=== PATIENT | male | born 1995 | race Caucasian/White ===

== ENCOUNTER 2021-02-12 10:57 | Emergency (ER) | payer OTHER, SELFPAY ==
--- NOTE | ~2021-02-12 | XR_ITS ---
EXAMINATION: XR FOOT, RIGHT CLINICAL INFORMATION: Stepped on a nail COMPARISON: Previous x-ray September 2019 TECHNIQUE: AP, lateral, and oblique views of the right foot. FINDINGS: Bone alignment is normal. No fracture or dislocation is seen. Joint spaces are normal. No radiopaque soft tissue foreign body is seen. XR/XR foot RT min 3V IMPRESSION: No fracture or foreign body seen.
[2021-02-12 11:01] VITALS: BP 131/81; PULSE 112; RESP 18; TEMP 37.3; O2SAT 99; BMI 34.0
--- NOTE | 2021-02-12 11:50 | ED.LOWEXIN ---
HPI - Extremity Injury (Lower) General Chief Complaint: Extremity Injury, Lower Stated Complaint: stepped on leon nail Time Seen by Provider: 02/12/21 11:39 Source: patient Mode of arrival: ambulatory Limitations: no limitations History of Present Illness HPI Narrative: 25 y/o male presenting with right foot pain and bilateral leg pain. He reports stepping on a leon nail on the steps of his mother's porch on Father's day. He pulled it out and thought nothing of it. He reports yesterday he was riding his bike and he noticed his lower legs were painful. He described it as bone pain of both lower legs. No muscle cramping or spasming. No weakness, numbness or tingling. No jaw pain, lockjaw, neck stiffness, abdominal pain, or difficultly swallowing. Minimal redness of the plantar aspect of the right foot with mild tenderness. No fever or chills. MD complaint: foot injury Onset (ago): week(s) Injury: Right: foot Type of Injury: puncture wound Place: home Severity: mild Severity scale (1-10): 4 Relieving factors: nothing Exacerbating factors: weight bearing, movement and palpation Context: stepped on nail Associated symptoms: ambulatory Other symptoms: other (leg pain) Related Data Previous Rx's Medication Instructions Recorded ibuprofen 800 mg PO Q8H PRN #14 tab 02/12/21 levofloxacin 500 mg PO DAILY 3 Days #3 tab 02/12/21 metronidazole 500 mg PO Q8H 10 Days #30 tab 02/12/21 Allergies Allergy/AdvReac Type Severity Reaction Status Date / Time Penicillins [PENICILLINS] Allergy Intermediate RASH Verified 02/12/21 11:00 Review of Systems Review of Systems: Constitutional: No Fever, No Chills ENT/Mouth: No sore throat, No Rhinorrhea, No Swallowing Difficulty Eyes: No Eye Pain, No Swelling, No Redness Cardiovascular: No Chest Pain, No SOB, No Orthopnea, No Edema Respiratory: No Cough, No Sputum, No Wheezing, No dyspnea Gastrointestinal: No Nausea, No Vomiting, No Diarrhea, No abdominal Pain Musculoskeletal: + joint pain, No Myalgias Skin: No Skin Lesions, No rash Neuro: No Weakness, No Numbness, No Dizziness, No Headache Psych: No Anxiety/Panic, No Depression Heme/Lymph: No Bruising, No Lymphadenopathy PMFSH Past Medical History Attestation statement: The following information was validated with the patient. Medical History (Updated 02/12/21 @ 12:43 by JENNIFER Garrido) No active medical problems Social History Social History Advance Directives: Yes Advance Directives Information Provided: Yes Advance Directives on File: No Physical Exam Vital Signs: Vital Signs: Last Vital Signs Temp 99.1 F 02/12/21 11:01 Pulse 112 H 02/12/21 11:01 Resp 18 02/12/21 11:01 BP 131/81 02/12/21 11:01 Pulse Ox 99 02/12/21 11:01 Body Mass Index 34.0 Appearance: Alert. Oriented X3. No acute distress. HEENT: normal inspection CVS: Normal heart rate and rhythm. Pulses normal. Respiratory: No respiratory distress. Skin: Skin warm and dry. Normal skin color. Normal skin turgor. No rashes. Extremities: plantar aspect of right foot with punctate lesion on medial aspect of ball of foot, no surrounding erythema or warmth, unable to express drainage, no fluctance. No calf tenderness. bilateral ankles with mild bony tenderness without erythema, edema or skin changes Neuro: Oriented X 3. No motor deficit. No sensory deficit. Steady gait. Course Course Course Narrative: 25 y/o male presenting with leg pain and puncture wound to right foot. Doubt the 2 complaints are related. Doubt generalized tetanus given his lack of systemic symptoms and benign clinical examination. XR shows no FB or bone puncture. Wound does not appear to be infected. Can empirically treat with PO Flagyl given his risk factor of puncture wound. Tdap administered here. He was counseled extensively on warning signs and symptoms of true tetanus. He will return or call 911 if he develops any of these. Stable for d/c home. Case was d/w Dr. Herron. Discharge Plan Discharge Clinical Impression: Puncture wound of foot Qualifiers: Encounter type: initial encounter Laterality: right Qualified Code(s): S91.331A - Puncture wound without foreign body, right foot, initial encounter Patient Disposition: Home, Self-Care Instructions: Puncture Wound in the Foot (ED) Additional Instructions: Your x-ray was normal. You are being started on a course of antibiotic to prevent and treat possible infection Use warm soaks was Epsom salts as needed for pain. Take Motrin and/or Tylenol as needed for pain. If you develop any concerning symptoms of tetanus such as lockjaw, severe muscle spasms, stiff neck, rigid abdomen, trouble swallowing call 911 or come back to the ER for further evaluation. Follow up with your doctor next week Prescriptions: New levofloxacin 500 mg tablet 500 mg PO DAILY 3 Days Qty: 3 RF: 0 ibuprofen 800 mg tablet 800 mg PO Q8H PRN (Reason: pain) Qty: 14 RF: 0 metronidazole 500 mg tablet 500 mg PO Q8H 10 Days Qty: 30 RF: 0 Stand Alone Forms: Work/School Release
[2021-02-12] MEDS: Diphth,Pertus(ACell),Tet Adult 0.5 ML SYRINGE IM (12:22)
[2021-02-12] MEDS: Ibuprofen 800 MG TABLET PO (12:38)
== END 2021-02-12 13:15 | disposition home or self-care (01) ==
PROVIDERS: Emergency Provider Emergency Medicine
DX: S91.331A Puncture wound without foreign body, right foot, initial encounter (principal); W45.0XXA Nail entering through skin, initial encounter; Y93.9 Activity, unspecified; Y92.008 Other place in unspecified non-institutional (private) residence as the place of occurrence of the external cause; Y99.9 Unspecified external cause status
CPT/HCPCS: 73630; 90471; 90715; 96372; 99284

== ENCOUNTER 2021-10-07 19:10 | Emergency (ER) | payer OTHER, SELFPAY ==
--- NOTE | ~2021-10-07 | XR_ITS ---
EXAMINATION: XR CHEST CLINICAL INFORMATION: Cough. COMPARISON: Chest radiograph dated from 06/20/2019. TECHNIQUE: PA view of the chest was obtained. FINDINGS: Normal appearance of the cardiomediastinal silhouette. No focal airspace opacities, pleural effusions or pneumothorax. No acute osseous abnormalities. Upper abdomen is within normal limits. XR/XR chest 1V IMPRESSION: No acute cardiopulmonary findings.
[2021-10-07 19:28] VITALS: BP 125/71; PULSE 106; RESP 15; TEMP 36.1; O2SAT 96; BMI 28.6
[2021-10-07 19:37] LABS: MANUAL DIFF FLAG NO
[2021-10-07 19:42] LABS: Basophils Percent Auto 0.5 % (0-2); Eosinophils Absolute Auto 0.5 X10*3/uL (0.0-0.4); Eosinophils Percent Auto 5.6 % (0-4); Hematocrit 48.6 % (42.0-52.0); Hemoglobin 16.8 g/dl (14.0-18.0); Imm Gran Abs Auto 0.02 X10*3/uL (0.00-0.03); Imm Gran Pct Auto 0.2 % (0.0-0.4); Lymphocytes Absolute Auto 1.3 X10*3/uL (1.2-4.9); Lymphocytes Percent Auto 14.9 % (20-40); Mean Corpuscular HGB Conc 34.6 g/dl (31.0-36.0); Mean Corpuscular Hemoglobin 28.2 pg (27.0-33.0); Mean Corpuscular Volume 81.5 fL (80.0-98.0); Mean Platelet Volume 10.6 fL (9.4-12.4); Monocytes Absolute Auto 0.9 X10*3/uL (0.1-1.2); Monocytes Percent Auto 10.4 % (2-11); Neutrophils Percent Auto 68.4 % (45-73); Platelet Count 309 X10*3/uL (160-400); Red Blood Count 5.96 X10*6/uL (4.60-5.80); Red Cell Distribution Width 13.3 % (11.0-16.0); White Blood Count 8.7 X10*3/uL (4.8-10.8)
[2021-10-07 19:55] LABS: Anion Gap 14 (12-20); Blood Urea Nitrogen 9 mg/dL (9-16); Carbon Dioxide 27 mmol/L (22-29); Chloride 101 mmol/L (96-108); Estimated Glomerular Filt Rate > 60; Glucose Random 119 mg/dL (60-115); Potassium 4.1 mmol/L (3.3-5.1); Sodium 138 mmol/L (135-145)
[2021-10-07 19:55] LABS: COVID-19 Test Negative (Negative); IDNOW Serial# 55D5AD1C
--- NOTE | 2021-10-07 21:51 | ED_ITS ---
HPI - Asthma General Chief Complaint: Asthma Stated Complaint: asthma Time Seen by Provider: 10/07/21 21:51 Source: patient Mode of arrival: ambulatory Limitations: no limitations History of Present Illness HPI Narrative: This is a 26-year-old male past medical history significant for asthma presenting to the emergency department with cough productive of dark white/brownish sputum. And congestion x3 months. Patient tells me that this is not improved and he has not been evaluated by a medical professional over the past 3 months. He tells me he has been using his sister's inhaler with relief. He denies chest pain or shortness of breath. However he does tell me that the cough gets worse at night, he has difficulties sleeping due to the cough. He denies fevers but he does tell me that he has intermittent chills. Denies recent sick contacts. He denies headache, weakness, abdominal pain, nausea, vomiting, diarrhea. His asthma is well controlled has never required intubation. MD complaint: asthma attack Onset (ago): month(s) (3) Severity: mild and moderate Context: none known Associated symptoms: productive cough Asthma History: childhood onset Related Data Previous Rx's Medication Instructions Recorded ibuprofen 800 mg tablet 800 mg PO Q8H PRN #14 tab 02/12/21 levofloxacin 500 mg tablet 500 mg PO DAILY 3 Days #3 tab 02/12/21 metronidazole 500 mg tablet 500 mg PO Q8H 10 Days #30 tab 02/12/21 albuterol sulfate 90 mcg/actuation 2 inh INHALATION Q4-6H PRN #1 ea 10/07/21 breath activated powder inhaler azithromycin 250 mg tablet See Rx Instructions .ROUTE 10/07/21 .COMPLEX #6 tab benzonatate 100 mg capsule 100 mg PO BID PRN #20 cap 10/07/21 Allergies Allergy/AdvReac Type Severity Reaction Status Date / Time Penicillins [PENICILLINS] Allergy Intermediate RASH Verified 02/12/21 11:00 Review of Systems Review of Systems: Constitutional : No Weight loss, No Fever, No Chills, No Fatigue, No Malaise ENT/Mouth : No sore throat, + Rhinorrhea Eyes: No Eye Pain, No Swelling, No Redness Cardiovascular : No Chest Pain, No SOB, No Dyspnea on Exertion, No Orthopnea, No Edema, No Palpitations Respiratory : + Cough, + Sputum, No Wheezing Gastrointestinal : No Nausea, No Vomiting, No Diarrhea, No Constipation, No abdominal Pain, No Hematochezia, No Melena Genitourinary : No Dysuria, No Urinary Frequency, No Hematuria, Musculoskeletal : No joint pain, No Myalgias, No Joint Swelling Skin : No Skin Lesions, No rash Neuro : No Weakness, No Numbness, No Dizziness, No Headache Psych : No Anxiety/Panic, No Depression All other systems reviewed and are negative Yes all other systems are reviewed and are negative [facility] Past Medical History Attestation statement: The following information was validated with the patient. Source: old records reviewed and nursing notes reviewed Medical History No active medical problems Physical Exam Vital Signs: Vital Signs: Last Vital Signs Temp 97 F 10/07/21 19:28 Pulse 75 10/07/21 22:38 Resp 18 10/07/21 22:38 BP 125/71 10/07/21 19:28 Pulse Ox 96 10/07/21 19:28 BMI result Body Mass Index 28.6 VSS Appearance: Alert.? Oriented X3.? No acute distress.? Head: Normocephalic, atraumatic, no step-offs or deformities Eyes: Pupils equal, round and reactive to light.? ENT: Pharynx normal.?Negative forward bending test for sinusitis. No lymphadenopathy Neck: Normal inspection.? Neck supple.? CVS: Normal heart rate and rhythm.? Pulses normal.? Respiratory: No respiratory distress.? + wheezing throughout. Abdomen: Soft and nontender.? Skin: Skin warm and dry.? Normal skin color.? Normal skin turgor.? Extremities: No lower extremity edema.? No calf ttp, neagtive shelley b/l. 5/5 strength to bilateral upper and lower extremities Neuro: Oriented X 3.? No motor deficit.? No sensory deficit. Course Reevaluation(s) Reevaluation #1: CBC within normal limits. No acute electrolyte abnormalities. COVID negative. Chest x-ray within normal limits. At this time patient's symptoms likely secondary to bronchitis. Unlikely that this is a PE, patient's vital signs are stable, saturating well on room air. Will give duoneb Time: 22:12 Reevaluation #2: Patient reports improvement with DuoNeb. At this time will treat for bacterial bronchitis is patient has been having symptoms for a prolonged period of time. Will discharge patient home on a Z-Gustavo, inhaler and give patient Tessalon Perles for cough. Advised patient to return with new or worsening symptoms. Comfortable discharge home. Time: 22:55 MDM - Asthma MDM Narrative Medical decision making narrative: 2154 26 yo m pmhx childhood asthma presents with URI and asthma exacerbation X3 months, worse at night. PE significant for wheezing throughout. RRR. Neuro nonfocal negative shelley sign b/l. Unlikley PE or PNA likley asthma and bronchitis. Plan- labs, xray, duoneb Medical Records Attestation: I reviewed the patient's medical records. Lab Data Attestation: I reviewed the patient's lab results. Result diagrams: 10/07/21 19:33 10/07/21 19:33 Labs: Lab Results 10/07/21 10/07/21 10/07/21 Range/Units 19:29 19:33 19:33 WBC 8.7 (4.8-10.8) X10*3/uL RBC 5.96 H (4.60-5.80) X10*6/uL Hgb 16.8 (14.0-18.0) g/dl Hct 48.6 (42.0-52.0) % MCV 81.5 (80.0-98.0) fL MCH 28.2 (27.0-33.0) pg MCHC 34.6 (31.0-36.0) g/dl RDW 13.3 (11.0-16.0) % Plt Count 309 (160-400) X10*3/uL MPV 10.6 (9.4-12.4) fL Immature Gran % (Auto) 0.2 (0.0-0.4) % Neut % (Auto) 68.4 (45-73) % Lymph % (Auto) 14.9 L (20-40) % [place] % (Auto) 10.4 (2-11) % Eos % (Auto) 5.6 H (0-4) % Baso % (Auto) 0.5 (0-2) % Lymph # (Auto) 1.3 (1.2-4.9) X10*3/uL [place] # (Auto) 0.9 (0.1-1.2) X10*3/uL Eos # (Auto) 0.5 H (0.0-0.4) X10*3/uL Baso # (Auto) 0.0 (0.0-0.2) X10*3/uL Abs Immat Gran (auto) 0.02 (0.00-0.03) X10*3/uL Absolute Neuts (auto) 6.0 (2.0-8.3) x10*3/uL Absolute Nucleated RBC 0.000 (0.0-0.012) X10*3/uL Nucleated RBC % (auto) 0.0 (0.0-0.2) /100WBC Sodium 138 (135-145) mmol/L Potassium 4.1 (3.3-5.1) mmol/L Chloride 101 (96-108) mmol/L Carbon Dioxide 27 (22-29) mmol/L Anion Gap 14 (12-20) BUN 9 (9-16) mg/dL Creatinine 0.85 (0.5-1.4) mg/dL Estim Creat Clear Calc 142.0 Estimated GFR > 60 Random Glucose 119 H (60-115) mg/dL Calcium 10.0 (8.4-10.2) mg/dL B-Natriuretic Peptide (<100) pg/mL COVID-19 (REED) Negative (Negative) COVID-19 Clin Com See Note 10/07/21 Range/Units 19:33 WBC (4.8-10.8) X10*3/uL RBC (4.60-5.80) X10*6/uL Hgb (14.0-18.0) g/dl Hct (42.0-52.0) % MCV (80.0-98.0) fL MCH (27.0-33.0) pg MCHC (31.0-36.0) g/dl RDW (11.0-16.0) % Plt Count (160-400) X10*3/uL MPV (9.4-12.4) fL Immature Gran % (Auto) (0.0-0.4) % Neut % (Auto) (45-73) % Lymph % (Auto) (20-40) % [place] % (Auto) (2-11) % Eos % (Auto) (0-4) % Baso % (Auto) (0-2) % Lymph # (Auto) (1.2-4.9) X10*3/uL [place] # (Auto) (0.1-1.2) X10*3/uL Eos # (Auto) (0.0-0.4) X10*3/uL Baso # (Auto) (0.0-0.2) X10*3/uL Abs Immat Gran (auto) (0.00-0.03) X10*3/uL Absolute Neuts (auto) (2.0-8.3) x10*3/uL Absolute Nucleated RBC (0.0-0.012) X10*3/uL Nucleated RBC % (auto) (0.0-0.2) /100WBC Sodium (135-145) mmol/L Potassium (3.3-5.1) mmol/L Chloride (96-108) mmol/L Carbon Dioxide (22-29) mmol/L Anion Gap (12-20) BUN (9-16) mg/dL Creatinine (0.5-1.4) mg/dL Estim Creat Clear Calc Estimated GFR Random Glucose (60-115) mg/dL Calcium (8.4-10.2) mg/dL B-Natriuretic Peptide 10 (<100) pg/mL COVID-19 (REED) (Negative) COVID-19 Clin Com Critical Care Time Critical Care Time Critical Care Time: No Discharge Plan Discharge Clinical Impression: Bronchitis Patient Disposition: Home, Self-Care Instructions: Acute Bronchitis (ED) Additional Instructions: Take your medications as prescribed. If you were prescribed antibiotics today, it is important that you take your medication to their entirety, do not skip any doses, do not finish them early. Follow-up with your primary care provider this week. Return to the emergency department with new or worsening symptoms. Such as chest pain, shortness of breath, nausea, vomiting, fevers, chills, abdominal pain, headache, dizziness, vision changes. In case of emergency call 911 Prescriptions: New albuterol sulfate 90 mcg/actuation aerosol powdr breath activated 2 inh inhalation Q4-6H PRN (Reason: shortness of breath) Qty: 1 0RF azithromycin 250 mg tablet See Rx Instructions .ROUTE .COMPLEX Qty: 6 0RF Rx Instructions: For 250 mg dose pack: take 500 mg today (day 1), then 250 mg for 4 days (days 2-5) benzonatate 100 mg capsule 100 mg PO BID PRN (Reason: cough) Qty: 20 0RF No Action levofloxacin 500 mg tablet 500 mg PO DAILY 3 Days Qty: 3 0RF Rx Instructions: supervising MD Roxana Herron ibuprofen 800 mg tablet 800 mg PO Q8H PRN (Reason: pain) Qty: 14 0RF Rx Instructions: supervising MD Roxana Herron metronidazole 500 mg tablet 500 mg PO Q8H 10 Days Qty: 30 0RF Rx Instructions: supervising MD Roxana Herron Referrals: Physician,Unknown J [Primary Care Provider] - 2 days Stand Alone Forms: Work/School Release
[2021-10-07 22:25] LABS: B Type Natriuretic Peptide 10 pg/mL (<100)
[2021-10-07 22:38] VITALS: PULSE 75; RESP 18; O2SAT 97
[2021-10-07] MEDS: Albuterol/Iprat 2.5/0.5MG 3 ML AMPUL.NEB INHALE (22:38)
== END 2021-10-07 23:46 | disposition home or self-care (01) ==
LOC: HO.ED 23:04
PROVIDERS: Physician Assistant; Emergency Provider Emergency Medicine
DX: J20.9 Acute bronchitis, unspecified (principal); R06.02 Shortness of breath; R05.2 Subacute cough; Z20.822 Contact with and (suspected) exposure to COVID-19; Z79.899 Other long term (current) drug therapy
CPT/HCPCS: 36415; 71045; 80048; 83880; 85025; 87635; 94640; 99283; 99284

== ENCOUNTER 2021-10-14 20:18 | Emergency (ER) | payer OTHER, SELFPAY ==
[2021-10-14 21:30] VITALS: BP 129/78; PULSE 79; RESP 22; TEMP 36.6; O2SAT 95; BMI 28.0
--- NOTE | 2021-10-14 23:35 | ED.ASTHMA ---
HPI - Asthma General Chief Complaint: Asthma Stated Complaint: Asthma Time Seen by Provider: 10/14/21 23:35 Source: patient Mode of arrival: ambulatory Limitations: no limitations History of Present Illness HPI Narrative: Patient history of asthma was seen here on 10/07 unable to get the prescription filled as sent to the wrong pharmacy complaining of wheezing and shortness of breath since discharge no fever no chills no chest pain Related Data Previous Rx's Medication Instructions Recorded ibuprofen 800 mg tablet 800 mg PO Q8H PRN #14 tab 02/12/21 levofloxacin 500 mg tablet 500 mg PO DAILY 3 Days #3 tab 02/12/21 metronidazole 500 mg tablet 500 mg PO Q8H 10 Days #30 tab 02/12/21 albuterol sulfate 90 mcg/actuation 2 inh INHALATION Q4-6H PRN #1 ea 10/07/21 breath activated powder inhaler azithromycin 250 mg tablet See Rx Instructions .ROUTE 10/07/21 .COMPLEX #6 tab benzonatate 100 mg capsule 100 mg PO BID PRN #20 cap 10/07/21 albuterol sulfate 2.5 mg (3 mL) INHALATION Q4-6H PRN 10/15/21 #90 ml albuterol sulfate 90 mcg/actuation 2 puff INHALATION Q4-6H PRN #8.5 g 10/15/21 aerosol inhaler (ProAir HFA) prednisone 20 mg tablet 40 mg PO DAILY #10 tab 10/15/21 Allergies Allergy/AdvReac Type Severity Reaction Status Date / Time Penicillins [PENICILLINS] Allergy Intermediate RASH Verified 02/12/21 11:00 Review of Systems Review of Systems: Yes all other systems are reviewed and are negative PMFSH Past Medical History Medical History No active medical problems Social History Social History Advance Directives: No Physical Exam Vital Signs: Vital Signs: Last Vital Signs Temp 97.7 F 10/15/21 00:43 Pulse 96 10/15/21 01:00 Resp 18 10/15/21 01:00 BP 140/82 H 10/15/21 00:43 Pulse Ox 94 10/15/21 00:43 BMI result Body Mass Index 28.0 Appearance: Alert. Oriented X3. Moderate respiratory distress. ENT: Pharynx normal. Oral Mucosa moist Neck: Normal inspection. Neck supple. CVS: Normal heart rate and rhythm. Pulses normal. Respiratory: Moderate respiratory distress. Bilateral wheezing Abdomen: Soft and nontender. Bowel sounds are present, no mass palpable, no CVA tenderness Skin: Skin warm and dry. Normal skin color. Normal skin turgor. Extremities: No lower extremity edema. No calf tenderness Neuro: Oriented X 3. MDM - Asthma MDM Narrative Medical decision making narrative: Patient feeling better after continues treatment wheezing still there was saturating 97% at room air will discharge patient home on prednisone nebulizer at home with inhaler Discharge Plan Discharge Clinical Impression: Asthma with acute exacerbation Patient Disposition: Home, Self-Care Instructions: Asthma (ED) Additional Instructions: Use inhaler/neb tt as adv Prednisone as prescribed Follow with PCP if not better Prescriptions: New prednisone 20 mg tablet 40 mg PO DAILY Qty: 10 0RF albuterol sulfate [ProAir HFA] 90 mcg/actuation HFA aerosol inhaler 2 puff inhalation Q4-6H PRN (Reason: Wheezing) Qty: 8.5 0RF albuterol sulfate 2.5 mg /3 mL (0.083 %) solution for nebulization 2.5 mg inhalation Q4-6H PRN (Reason: shortness of breath or wheezing) Qty: 90 0RF No Action levofloxacin 500 mg tablet 500 mg PO DAILY 3 Days Qty: 3 0RF Rx Instructions: supervising MD Roxana Herron ibuprofen 800 mg tablet 800 mg PO Q8H PRN (Reason: pain) Qty: 14 0RF Rx Instructions: supervising MD Roxana Herron metronidazole 500 mg tablet 500 mg PO Q8H 10 Days Qty: 30 0RF Rx Instructions: supervising MD Roxana Herron albuterol sulfate 90 mcg/actuation aerosol powdr breath activated 2 inh inhalation Q4-6H PRN (Reason: shortness of breath) Qty: 1 0RF azithromycin 250 mg tablet See Rx Instructions .ROUTE .COMPLEX Qty: 6 0RF Rx Instructions: For 250 mg dose pack: take 500 mg today (day 1), then 250 mg for 4 days (days 2-5) benzonatate 100 mg capsule 100 mg PO BID PRN (Reason: cough) Qty: 20 0RF
[2021-10-14] MEDS: dexAMETHasone 2 MG TABLET 10 MG PO (23:46)
[2021-10-14] MEDS: Albuterol Sulfate (0.083%) 2.5 MG/3 ML VIAL.NEB 7.5 MG INHALE (23:57)
[2021-10-14] MEDS: Albuterol/Iprat 2.5/0.5MG 3 ML AMPUL.NEB INHALE (23:57)
[2021-10-15 00:04] VITALS: PULSE 79; RESP 22; O2SAT 95
[2021-10-15 00:43] VITALS: BP 140/82; PULSE 79; RESP 18; TEMP 36.5; O2SAT 94
[2021-10-15] MEDS: Albuterol Sulfate (0.083%) 2.5 MG/3 ML VIAL.NEB 7.5 MG INHALE (00:46)
[2021-10-15] MEDS: Albuterol Sulfate 90 MCG 8 GM INHALER 4 PUFF INHALE (00:47)
[2021-10-15 01:00] VITALS: PULSE 96; RESP 18; O2SAT 98
== END 2021-10-15 06:46 | disposition home or self-care (01) ==
PROVIDERS: Emergency Provider Internal Medicine; PCP Nurse Practitioner Family
DX: J45.901 Unspecified asthma with (acute) exacerbation (principal)
CPT/HCPCS: 94640; 94644; 94645; 99283; 99285; J8540

== ENCOUNTER 2022-01-27 22:09 | Emergency (ER) | payer OTHER, SELFPAY ==
--- NOTE | ~2022-01-27 | XR_ITS ---
EXAMINATION: XR CHEST CLINICAL INFORMATION: Low-dose COMPARISON: None TECHNIQUE: Frontal view of the chest was obtained. FINDINGS: The lungs are well-expanded without any acute consolidation. There is increased bilateral parahilar interstitial/vascular markings. Heart size is normal. No gross bony abnormality. XR/XR chest 1V IMPRESSION: Slight increase bilateral parahilar interstitial/vascular markings question mild fluid overload./Edema No acute consolidation or pleural effusion.
--- NOTE | 2022-01-27 22:19 | ED.PSYCH ---
HPI - Psych General Chief Complaint: ETOH/Substance Use Stated Complaint: substance abuse Time Seen by Provider: 01/27/22 22:17 Source: EMS Mode of arrival: EMS Limitations: altered mental status (intoxication) History of Present Illness HPI Narrative: 26 yo male with hx of substance abuse and asthma here with c/o 911 call by bystanders patient found wandering around screaming admitted to PCP abuse but EMS notes low O2 sats and sleepy, no narcan given, decreased RR. complaint: substance abuse Onset (ago): unknown Duration: constant History of same: Yes Relieving factors: other (narcan on arrival in ED) Exacerbating factors: drug use Context: recent drug abuse Associated psychiatric symptoms: other (cough) Associated symptoms: denies other symptoms Treatments prior to arrival: other (put on oxygen for O2 sats in 80s, low RR no narcan was given en route) Related Data Previous Rx's Medication Instructions Recorded ibuprofen 800 mg tablet 800 mg PO Q8H PRN pain #14 tabs 02/12/21 levofloxacin 500 mg tablet 500 mg PO DAILY 3 days #3 tabs 02/12/21 metronidazole 500 mg tablet 500 mg PO Q8H 10 days #30 tabs 02/12/21 albuterol sulfate 90 mcg/actuation 2 inh inhalation Q4-6H PRN 10/07/21 breath activated powder inhaler shortness of breath #1 ea azithromycin 250 mg tablet See Rx Instructions PO .COMPLEX #6 10/07/21 tabs benzonatate 100 mg capsule 100 mg PO BID PRN cough #20 caps 10/07/21 albuterol sulfate 2.5 mg (3 mL) inhalation Q4-6H PRN 10/15/21 shortness of breath or wheezing #90 mL albuterol sulfate 90 mcg/actuation 2 puff inhalation Q4-6H PRN 10/15/21 aerosol inhaler (ProAir HFA) Wheezing #8.5 grams prednisone 20 mg tablet 40 mg PO DAILY #10 tabs 10/15/21 Allergies Allergy/AdvReac Type Severity Reaction Status Date / Time Penicillins [PENICILLINS] Allergy Intermediate RASH Verified 02/12/21 11:00 Review of Systems Review of Systems: ROS unable to be obtained due to altered mental status PMFSH Past Medical History Attestation statement: The following information was validated with the patient. Medical History (Updated 01/27/22 @ 23:10 by Roxana Herron DO) Asthma Social History Social History (Updated 01/27/22 @ 23:01 by Roxana Herron DO) Patient Tobacco Use Status: Current someday Tobacco user Substance Use Type: Marijuana Advance Directives: No Advance Directives Information Provided: Yes Physical Exam Vital Signs: Vital Signs: Last Vital Signs Temp 98.1 F 01/27/22 22:21 Pulse 94 01/27/22 22:32 Resp 18 01/27/22 22:32 BP 131/68 01/27/22 22:21 Pulse Ox 100 01/27/22 22:58 O2 Del Method 01/27/22 22:58 Oxygen Flow Rate 2 01/27/22 22:21 BMI result Body Mass Index 30.4 Appearance: Somnolent, confused mumbles words mild acute distress. Eyes: Pupils constricted, eyes red and injected ENT: Pharynx normal. Neck: Normal inspection. Neck supple. CVS: Normal heart rate and rhythm. Pulses normal. Respiratory: Mild respiratory distress - decreased RR. Breath sounds coarse and very diminished Abdomen: Soft and nontender. Skin: Skin warm and dry. Normal skin color. Normal skin turgor. Extremities: No lower extremity edema. No calf ttp Neuro: cannot participate in full neuro exam. No motor deficit. No sensory deficit. Course Course Course Narrative: much more awake and calm after narcan 4mg IN - he states he feels better pupils now 3mm states he only used THC tonight 100% on RA after neb treatment to be handed albuterol INH in ED, CXR ?edema he has no pedal edema or JVD and no prior hx of CHF much improved, signed out pending CARE team consult declined CARE team services will observe until 1230 after narcan if he remains stable he can be DC home Dr. Garibay to observe MDM - Psych MDM Narrative Medical decision making narrative: 26 yo male brought in by EMS as substance abuse he is sedated with constricted pupils and hypoxia - IN narcan given. He has coarse lung sounds on exam with hx of asthma - neb ordered along with CXR for pneumonia. Will obtain drug screen and offer CARE team consult. Lab Data Labs: Lab Results 01/27/22 Range/Units 22:41 COVID-19 (REED) Negative (Negative) COVID-19 Clin Com See Note Discharge Plan Discharge Clinical Impression: Acute bronchospasm, Substance abuse Patient Disposition: Still a Patient Instructions: Bronchospasm (ED) Additional Instructions: return to ED for any worsening symptoms or concerns you can take the albuterol inhaler 2 to 4 puffs every 4 hours as needed for wheezing Prescriptions: No Action levofloxacin 500 mg tablet 500 mg PO DAILY 3 Days Qty: 3 0RF Rx Instructions: supervising MD Roxana Herron ibuprofen 800 mg tablet 800 mg PO Q8H PRN (Reason: pain) Qty: 14 0RF Rx Instructions: supervising MD Roxana Herron metronidazole 500 mg tablet 500 mg PO Q8H 10 Days Qty: 30 0RF Rx Instructions: supervising MD Roxana Herron prednisone 20 mg tablet 40 mg PO DAILY Qty: 10 0RF albuterol sulfate [ProAir HFA] 90 mcg/actuation HFA aerosol inhaler 2 puff inhalation Q4-6H PRN (Reason: Wheezing) Qty: 8.5 0RF albuterol sulfate 2.5 mg /3 mL (0.083 %) solution for nebulization 2.5 mg inhalation Q4-6H PRN (Reason: shortness of breath or wheezing) Qty: 90 0RF albuterol sulfate 90 mcg/actuation aerosol powdr breath activated 2 inh inhalation Q4-6H PRN (Reason: shortness of breath) Qty: 1 0RF azithromycin 250 mg tablet See Rx Instructions .ROUTE .COMPLEX Qty: 6 0RF Rx Instructions: For 250 mg dose pack: take 500 mg today (day 1), then 250 mg for 4 days (days 2-5) benzonatate 100 mg capsule 100 mg PO BID PRN (Reason: cough) Qty: 20 0RF
[2022-01-27 22:20] VITALS: BP 150/94; BP 155/94; PULSE 80; PULSE 92; RESP 12; TEMP 36.9; O2SAT 79; O2SAT 91; BMI 25.8
[2022-01-27 22:21] VITALS: BP 131/68; PULSE 103; RESP 10; TEMP 36.7; O2SAT 94; BMI 30.4
[2022-01-27] MEDS: Naloxone HCl Nasal 4 MG SPRAY NOSTRILALT (22:26)
--- NOTE | 2022-01-27 22:28 | PC.NURSE ---
Carolyn Reynoso RN gave pt intrnasal narcan and pt wok up considerably and is not responsive to verbal stimulus.
[2022-01-27] MEDS: Albuterol Sulfate (0.083%) 2.5 MG/3 ML VIAL.NEB INHALE (22:29)
[2022-01-27 22:32] VITALS: PULSE 94; RESP 18; O2SAT 100
[2022-01-27 22:58] VITALS: O2SAT 100
[2022-01-27 23:11] LABS: COVID-19 Test Negative (Negative)
--- NOTE | 2022-01-27 23:34 | MHC.CARE ---
Pt declined SUDE at this time reporting I don't do drugs . Pt advised to come back to the ED or call if he is in need of any resources.
[2022-01-27] MEDS: Albuterol Sulfate 90 MCG 8 GM INHALER 2 PUFF INHALE (23:41)
[2022-01-27] MEDS: Naloxone HCl Nasal TAKE HOME 4 MG SPRAY NOSTRILALT (23:42)
[2022-01-28 01:53] VITALS: BP 114/62; PULSE 78; RESP 16; TEMP 36.9; O2SAT 96
--- NOTE | 2022-01-28 01:54 | PC.NURSE ---
Pt discharged to self, use of narcan rescue nasal spray reviewed with pt, pt verbalized understanding.
== END 2022-01-28 01:54 | disposition still patient (30) ==
PROVIDERS: Emergency Provider Emergency Medicine
DX: J98.01 Acute bronchospasm (principal); F19.10 Other psychoactive substance abuse, uncomplicated; F17.200 Nicotine dependence, unspecified, uncomplicated; Z20.822 Contact with and (suspected) exposure to COVID-19
CPT/HCPCS: 71045; 87635; 94640; 99282; 99284

== ENCOUNTER 2022-02-17 02:56 | Emergency (ER) | payer OTHER, SELFPAY ==
[2022-02-17] VITALS (10 sets, daily range): BP systolic 105–155; BP diastolic 49–70; PULSE 83–120; RESP 12–14; TEMP 37.6–38.4; O2SAT 88–98; BMI 20.3
[2022-02-17] MEDS: diphenhydrAMINE HCL 50 MG/ML VIAL IM (03:05)
[2022-02-17] MEDS: Haloperidol Lactate 5 MG/ML VIAL IM (03:05)
[2022-02-17] MEDS: LORazepam 2 MG/ML VIAL IM (03:05)
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
[2022-02-17 03:53] LABS: COVID-19 Test Negative (Negative)
--- NOTE | 2022-02-17 04:06 | PC.NURSE ---
RL and LL released. pt confused no further aggressive behaviors toward staff at this time.
--- NOTE | 2022-02-17 04:35 | PC.NURSE ---
pt has been released from restraints. pt resting in bed intermittently sleeping. no further behaviors or aggression toward staff
--- NOTE | 2022-02-17 12:02 | PC.NURSE ---
pt continues to sleep at this time- resp even and unlabored
--- NOTE | 2022-02-17 13:18 | MHC.RECOVSUP ---
? Reason for consult:Recovery Support o Current location:ED 16 o Identified substance use concern:ETOH - Support ? Intervention o Community resources provided o Harm reduction discussion ? Plan: o Referral to [facility] o Patient to follow up with [facility] after discharge ? Additional information:Referred patient to [facility] and the [facility]
== END 2022-02-17 13:39 | disposition home or self-care (01) ==
PROVIDERS: Emergency Provider Internal Medicine
DX: F16.10 Hallucinogen abuse, uncomplicated (principal); Z20.822 Contact with and (suspected) exposure to COVID-19; R00.0 Tachycardia, unspecified; F17.200 Nicotine dependence, unspecified, uncomplicated
CPT/HCPCS: 87635; 96372; 99284; J1200; J2060

== ENCOUNTER 2022-03-22 00:21 | Emergency (ER) | payer OTHER, SELFPAY ==
--- NOTE | ~2022-03-22 | XR_ITS ---
EXAMINATION: XR HAND, RIGHT CLINICAL INFORMATION: Injury COMPARISON: Right hand 12/25/2010 TECHNIQUE: PA, lateral, and oblique views of the right hand. FINDINGS: The bones and soft tissues are normal. No fracture. Alignment is anatomic. Joint spaces are maintained. No erosions or soft tissue calcifications. XR/XR hand RT 2V IMPRESSION: Normal right hand.
[2022-03-22 01:02] VITALS: BP 121/76; PULSE 85; RESP 18; TEMP 37.1; O2SAT 98; BMI 25.7
--- NOTE | 2022-03-22 04:46 | ED_ITS ---
HPI - Extremity Problem General Chief complaint: Extremity Injury, Upper Stated complaint: fell, R hand inj Time Seen by Provider: 03/22/22 04:45 Source: patient Mode of arrival: ambulatory Limitations: no limitations History of Present Illness HPI Narrative: patient was playing baseball when he fell landing on his right hand/ right wrist about stretching complaining of right hand pain. Patient is a right-peng d. Patient also has a small laceration on the dorsum aspect of the right hand With no active bleeding. Patient declined any head injury no LOC no neck pain, no chest pain, no abdominal pain. Related Data Previous Rx's Medication Instructions Recorded ibuprofen 800 mg tablet 800 mg PO Q8H PRN pain #14 tabs 02/12/21 levofloxacin 500 mg tablet 500 mg PO DAILY 3 days #3 tabs 02/12/21 metronidazole 500 mg tablet 500 mg PO Q8H 10 days #30 tabs 02/12/21 albuterol sulfate 90 mcg/actuation 2 inh inhalation Q4-6H PRN 10/07/21 breath activated powder inhaler shortness of breath #1 ea azithromycin 250 mg tablet See Rx Instructions PO .COMPLEX #6 10/07/21 tabs benzonatate 100 mg capsule 100 mg PO BID PRN cough #20 caps 10/07/21 albuterol sulfate 2.5 mg/3 mL 2.5 mg (3 mL) inhalation Q4-6H PRN 10/15/21 (0.083 %) solution for nebulization shortness of breath or wheezing #90 mL albuterol sulfate 90 mcg/actuation 2 puff inhalation Q4-6H PRN 10/15/21 aerosol inhaler (ProAir HFA) Wheezing #8.5 grams prednisone 20 mg tablet 40 mg PO DAILY #10 tabs 10/15/21 Allergies Allergy/AdvReac Type Severity Reaction Status Date / Time Penicillins [PENICILLINS] Allergy Intermediate RASH Verified 02/12/21 11:00 Review of Systems Review of Systems: All other systems are reviewed and are negative Constitutional: Reports as per HPI and Reports no additional constitutional complaints Eyes: Reports as per HPI and Reports no additional eye complaints Reports system reviewed and no additional complaints, except as documented Cardiovascular: Reports as per HPI and Reports no additional cardiovascular complaints Respiratory: Reports as per HPI and Reports no additional respiratory complaints Gastrointestinal: Reports as per HPI and Reports no additional gastrointestinal complaints Genitourinary: Reports no additional female genitourinary complaints Musculoskeletal: Reports no additional musculoskeletal complaints Skin/Breast: Reports system reviewed and no additional complaints, except as docu Psychiatric: Reports no additional psychiatric complaints Endocrine: Reports no additional endocrine complaints Hematologic/Lymphatic: Reports no additional hematologic/lymphatic complaints Allergic/Immunologic: Reports no additional allergic/immunologic complaints Reports system reviewed and no additional complaints, except as documented and Reports Abnormal speech present [facility] Past Medical History Medical History Asthma Social History Social History Patient Tobacco Use Status: Current someday Tobacco user Substance Use Type: Other Advance Directives: No Physical Exam Vital Signs: Vital Signs: Last Vital Signs Temp 98.7 F 03/22/22 01:02 Pulse 85 03/22/22 01:02 Resp 18 03/22/22 01:02 BP 121/76 03/22/22 01:02 Pulse Ox 98 03/22/22 01:02 O2 Del Method 03/22/22 01:02 BMI result Body Mass Index 25.7 vital signs have been reviewed as appeared to be correct. Blood pressure normal. Heart rate normal. Respiration rate normal. Temperature normal. Oxygen saturation normal. Appearance: Alert. Oriented X3. No acute distress. Head: Normal external exam. Normocephalic. Atraumatic. No Soliz signs noted. No raccoon eyes noted Eyes: PERRLA. EOMI. Conjunctiva and sclera normal. Eyelids normal. ENT: TM's Normal. Pharynx normal. Uvula midline. Moist mucous membranes. No trismus noted. No drooling noted. No muffled voice noted. Neck: Normal inspection. Neck supple. FROM. No adenopathy. Thyroid Normal. No meningeal signs. No neck mass noted. CVS: Normal heart rate and rhythm. Heart sound normal. No murmurs noted. Pulses normal throughout. Respiratory: No respiratory distress. Painless inspiration. Breath sounds normal. No wheezes/rales/rhonchi noted. Chest nontender. No accessory muscle usage noted or decreased air movement noted. Abdomen: Soft and nontender. Bowel sounds normal in all 4 quadrants. No distention noted. No organomegaly noted. No visible injury noted. Back: No CVA tenderness. Full range of motion noted. Skin: Skin warm and dry. Normal skin color. Normal skin turgor. No rashes/lesions/lacerations noted. Extremities: Right hand swelling, focal tenderness over the base of middle, ring, little fingers, no deformity or step-off, full range of motion of the right hand with pain, neurovascularly intact. Neuro: Oriented X 3. Cranial nerve exam: II-XII are grossly intact No motor deficit. No sensory deficit. Reflexes normal. Course Course Course Narrative: right hand contusion. Apply Hero bandage, NSAIDs, ice. MDM - Extremity (Nontraumatic) Imaging Data right hand x-ray: Attestation: I personally reviewed and interpreted this imaging study as follows: Radiologist's impression: normal right hand Discharge Plan Discharge Clinical Impression: Contusion of hand, right Patient Disposition: Home, Self-Care Instructions: Contusion in Adults (ED) Additional Instructions: apply ice on your right hand, take ibuprofen 200 mg tablet every 8 hours if needed for pain ( it is over the counter). Prescriptions: No Action levofloxacin 500 mg tablet 500 mg PO DAILY 3 Days Qty: 3 0RF Rx Instructions: supervising MD Roxana Herron ibuprofen 800 mg tablet 800 mg PO Q8H PRN (Reason: pain) Qty: 14 0RF Rx Instructions: supervising MD Roxana Herron metronidazole 500 mg tablet 500 mg PO Q8H 10 Days Qty: 30 0RF Rx Instructions: supervising MD Roxana Herron prednisone 20 mg tablet 40 mg PO DAILY Qty: 10 0RF albuterol sulfate [ProAir HFA] 90 mcg/actuation HFA aerosol inhaler 2 puff inhalation Q4-6H PRN (Reason: Wheezing) Qty: 8.5 0RF albuterol sulfate 2.5 mg /3 mL (0.083 %) solution for nebulization 2.5 mg inhalation Q4-6H PRN (Reason: shortness of breath or wheezing) Qty: 90 0RF albuterol sulfate 90 mcg/actuation aerosol powdr breath activated 2 inh inhalation Q4-6H PRN (Reason: shortness of breath) Qty: 1 0RF azithromycin 250 mg tablet See Rx Instructions .ROUTE .COMPLEX Qty: 6 0RF Rx Instructions: For 250 mg dose pack: take 500 mg today (day 1), then 250 mg for 4 days (days 2-5) benzonatate 100 mg capsule 100 mg PO BID PRN (Reason: cough) Qty: 20 0RF Referrals: Maribel Sheriff NP [Primary Care Provider] - Dominique Clifton MD [Physician] -
[2022-03-22] MEDS: Ibuprofen 600 MG TABLET PO (04:52)
[2022-03-22 05:03] VITALS: RESP 18
== END 2022-03-22 05:05 | disposition home or self-care (01) ==
PROVIDERS: Emergency Provider Emergency Medicine; PCP Nurse Practitioner Family
DX: S60.221A Contusion of right hand, initial encounter (principal); W01.0XXA Fall on same level from slipping, tripping and stumbling without subsequent striking against object, initial encounter; Y93.64 Activity, baseball; Y92.320 Baseball field as the place of occurrence of the external cause; Y99.8 Other external cause status
CPT/HCPCS: 73120; 99283; 99284

== ENCOUNTER 2022-03-28 22:58 | Emergency (ER) | payer OTHER, SELFPAY ==
--- NOTE | ~2022-03-28 | XR_ITS ---
EXAMINATION: XR CHEST CLINICAL INFORMATION: Shortness of breath COMPARISON: Chest x-ray 08/29/2016 TECHNIQUE: Frontal view of the chest was obtained. 11:15 PM FINDINGS: No significant abnormality is noted involving the heart, lungs, mediastinum, bony thorax or soft tissues. XR/XR chest 1V IMPRESSION: Unremarkable examination.
[2022-03-28 23:00] VITALS: BP 141/73; PULSE 109; RESP 18; TEMP 36.1; O2SAT 92; BMI 27.9
[2022-03-28 23:20] LABS: MANUAL DIFF FLAG NO
[2022-03-28 23:21] LABS: Basophils Percent Auto 0.3 % (0-2); Eosinophils Absolute Auto 0.6 X10*3/uL (0.0-0.4); Eosinophils Percent Auto 5.1 % (0-4); Hematocrit 45.8 % (42.0-52.0); Imm Gran Abs Auto 0.01 X10*3/uL (0.00-0.03); Imm Gran Pct Auto 0.1 % (0.0-0.4); Lymphocytes Absolute Auto 2.3 X10*3/uL (1.2-4.9); Lymphocytes Percent Auto 20.9 % (20-40); Mean Corpuscular HGB Conc 34.9 g/dl (31.0-36.0); Mean Corpuscular Hemoglobin 28.2 pg (27.0-33.0); Mean Corpuscular Volume 80.6 fL (80.0-98.0); Mean Platelet Volume 10.3 fL (9.4-12.4); Monocytes Absolute Auto 1.2 X10*3/uL (0.1-1.2); Monocytes Percent Auto 10.9 % (2-11); Neutrophils Percent Auto 62.7 % (45-73); Platelet Count 313 X10*3/uL (160-400); Red Blood Count 5.68 X10*6/uL (4.60-5.80); Red Cell Distribution Width 13.2 % (11.0-16.0); White Blood Count 11.1 X10*3/uL (4.8-10.8)
[2022-03-28 23:34] LABS: COVID-19 Test Negative (Negative); IDNOW Serial# 9DB6401D
[2022-03-28 23:35] LABS: IDNOW Serial# 16C4AD1C; Influenza A Negative (Negative); Influenza B2 Negative (Negative)
[2022-03-28 23:39] LABS: Alanine Aminotransferase 18 U/L (0-40); Albumin Level 4.6 g/dL (3.5-5.0); Alkaline Phosphatase 122 U/L (39-117); Anion Gap 16 (12-20); Aspartate Amino Transferase 18 U/L (5-37); Bilirubin Total 0.6 mg/dL (0.0-1.0); Blood Urea Nitrogen 16 mg/dL (9-16); Calcium 9.2 mg/dL (8.4-10.2); Carbon Dioxide 23 mmol/L (22-29); Chloride 103 mmol/L (96-108); Creatinine Clr Calc Pharmacy 118.4; Estimated Glomerular Filt Rate > 60; Glucose Random 100 mg/dL (60-115); Potassium 3.8 mmol/L (3.3-5.1); Sodium 138 mmol/L (135-145); Total Protein 7.6 g/dL (6.5-8.0)
--- NOTE | 2022-03-29 01:04 | ED.ASTHMA ---
HPI - Asthma General Chief Complaint: Asthma Stated Complaint: asthma Time Seen by Provider: 03/29/22 00:56 Source: patient Mode of arrival: ambulatory Limitations: no limitations History of Present Illness MD complaint: asthma attack and shortness of breath Onset (ago): day(s) (2) Severity: moderate Context: other (humidity) Associated symptoms: dry cough Asthma History: childhood onset Treatments Prior to Arrival: other (ran out if his inhaler) Related Data Previous Rx's Medication Instructions Recorded ibuprofen 800 mg tablet 800 mg PO Q8H PRN pain #14 tabs 02/12/21 levofloxacin 500 mg tablet 500 mg PO DAILY 3 days #3 tabs 02/12/21 metronidazole 500 mg tablet 500 mg PO Q8H 10 days #30 tabs 02/12/21 albuterol sulfate 90 mcg/actuation 2 inh inhalation Q4-6H PRN 10/07/21 breath activated powder inhaler shortness of breath #1 ea azithromycin 250 mg tablet See Rx Instructions PO .COMPLEX #6 10/07/21 tabs benzonatate 100 mg capsule 100 mg PO BID PRN cough #20 caps 10/07/21 albuterol sulfate 2.5 mg/3 mL 2.5 mg (3 mL) inhalation Q4-6H PRN 10/15/21 (0.083 %) solution for nebulization shortness of breath or wheezing #90 mL albuterol sulfate 90 mcg/actuation 2 puff inhalation Q4-6H PRN 10/15/21 aerosol inhaler (ProAir HFA) Wheezing #8.5 grams prednisone 20 mg tablet 40 mg PO DAILY #10 tabs 10/15/21 prednisone 20 mg tablet 60 mg PO DAILY 4 days #12 tabs 03/29/22 Allergies Allergy/AdvReac Type Severity Reaction Status Date / Time Penicillins [PENICILLINS] Allergy Intermediate RASH Verified 03/28/22 23:00 Review of Systems Review of Systems: Constitutional : No Fever, No Chills ENT/Mouth : No Hoarseness, No sore throat, No Rhinorrhea Eyes: No Redness, No Discharge, No Vision Changes Cardiovascular : No Chest Pain, positive SOB, positive Dyspnea on Exertion, No Edema Respiratory : positive Cough, No Sputum, positive Wheezing, Gastrointestinal : No Nausea, No Vomiting, No Diarrhea, No abdominal Pain Genitourinary : No Dysuria, No Hematuria Musculoskeletal : No joint pain, No Myalgias Skin : No rash Neuro : No Weakness, No Numbness, No Headache Psych : No anxiety, depression Heme/Lymph: No Bruising, No Bleeding Endocrine : No Polyuria, No Polydipsia All other systems reviewed and are negative [facility] Past Medical History Attestation statement: The following information was validated with the patient. Medical History Asthma Social History Social History Patient Tobacco Use Status: Current someday Tobacco user Substance Use Type: Other Advance Directives: No Advance Directives Information Provided: Yes Physical Exam Vital Signs: Vital Signs: Last Vital Signs Temp 97.0 F 03/28/22 23:00 Pulse 85 03/29/22 01:28 Resp 16 03/29/22 01:28 BP 141/73 H 03/28/22 23:00 Pulse Ox 95 03/29/22 01:07 O2 Del Method 03/29/22 01:07 BMI result Body Mass Index 27.9 Appearance: Alert. Oriented X3. No acute distress. Eyes: Pupils equal, round and reactive to light. ENT: Pharynx normal. Neck: Normal inspection. Neck supple. CVS: Normal heart rate and rhythm. Pulses normal. Respiratory: No respiratory distress. Breath sounds diffuse insp and exp wheezes Abdomen: Soft and non-tender. Skin: Skin warm and dry. Normal skin color. Normal skin turgor. Extremities: No lower extremity edema. No calf ttp Neuro: Oriented X 3. No motor deficit. No sensory deficit. Course Course Course Narrative: no hypoxia, feels better, walking around wants to go home MDM - Asthma MDM Narrative Medical decision making narrative: 26 yo male with hx of asthma occasional smoker notes due to humidity he has been having a hard time with his asthma. He does not have an INH right now. At this time no fevers or productive cough. Labs, swabs, CXR negative from waiting room. Will order 5mg neb, PO steroids. INH in hand - dispo per results and findings. Lab Data Result diagrams: 03/28/22 23:11 03/28/22 23:11 Labs: Lab Results 03/28/22 03/28/22 03/28/22 Range/Units 23:11 23:11 23:11 WBC 11.1 H (4.8-10.8) X10*3/uL RBC 5.68 (4.60-5.80) X10*6/uL Hgb 16.0 (14.0-18.0) g/dl Hct 45.8 (42.0-52.0) % MCV 80.6 (80.0-98.0) fL MCH 28.2 (27.0-33.0) pg MCHC 34.9 (31.0-36.0) g/dl RDW 13.2 (11.0-16.0) % Plt Count 313 (160-400) X10*3/uL MPV 10.3 (9.4-12.4) fL Immature Gran % (Auto) 0.1 (0.0-0.4) % Neut % (Auto) 62.7 (45-73) % Lymph % (Auto) 20.9 (20-40) % [place] % (Auto) 10.9 (2-11) % Eos % (Auto) 5.1 H (0-4) % Baso % (Auto) 0.3 (0-2) % Lymph # (Auto) 2.3 (1.2-4.9) X10*3/uL [place] # (Auto) 1.2 (0.1-1.2) X10*3/uL Eos # (Auto) 0.6 H (0.0-0.4) X10*3/uL Baso # (Auto) 0.0 (0.0-0.2) X10*3/uL Abs Immat Gran (auto) 0.01 (0.00-0.03) X10*3/uL Absolute Neuts (auto) 7.0 (2.0-8.3) x10*3/uL Absolute Nucleated RBC 0.000 (0.0-0.012) X10*3/uL Nucleated RBC % (auto) 0.0 (0.0-0.2) /100WBC Sodium 138 (135-145) mmol/L Potassium 3.8 (3.3-5.1) mmol/L Chloride 103 (96-108) mmol/L Carbon Dioxide 23 (22-29) mmol/L Anion Gap 16 (12-20) BUN 16 D (9-16) mg/dL Creatinine 1.04 (0.5-1.4) mg/dL Estim Creat Clear Calc 118.4 Estimated GFR > 60 Random Glucose 100 (60-115) mg/dL Calcium 9.2 D (8.4-10.2) mg/dL Total Bilirubin 0.6 (0.0-1.0) mg/dL AST 18 (5-37) U/L ALT 18 (0-40) U/L Alkaline Phosphatase 122 H (39-117) U/L Total Protein 7.6 (6.5-8.0) g/dL Albumin 4.6 (3.5-5.0) g/dL COVID-19 ([facility]) (Negative) COVID-19 Clin Com Influenza Type A (RADHA) Negative (Negative) Influenza Type B (RADHA) Negative (Negative) Influenza A & B Note See Note 03/28/22 Range/Units 23:11 WBC (4.8-10.8) X10*3/uL RBC (4.60-5.80) X10*6/uL Hgb (14.0-18.0) g/dl Hct (42.0-52.0) % MCV (80.0-98.0) fL MCH (27.0-33.0) pg MCHC (31.0-36.0) g/dl RDW (11.0-16.0) % Plt Count (160-400) X10*3/uL MPV (9.4-12.4) fL Immature Gran % (Auto) (0.0-0.4) % Neut % (Auto) (45-73) % Lymph % (Auto) (20-40) % [place] % (Auto) (2-11) % Eos % (Auto) (0-4) % Baso % (Auto) (0-2) % Lymph # (Auto) (1.2-4.9) X10*3/uL [place] # (Auto) (0.1-1.2) X10*3/uL Eos # (Auto) (0.0-0.4) X10*3/uL Baso # (Auto) (0.0-0.2) X10*3/uL Abs Immat Gran (auto) (0.00-0.03) X10*3/uL Absolute Neuts (auto) (2.0-8.3) x10*3/uL Absolute Nucleated RBC (0.0-0.012) X10*3/uL Nucleated RBC % (auto) (0.0-0.2) /100WBC Sodium (135-145) mmol/L Potassium (3.3-5.1) mmol/L Chloride (96-108) mmol/L Carbon Dioxide (22-29) mmol/L Anion Gap (12-20) BUN (9-16) mg/dL Creatinine (0.5-1.4) mg/dL Estim Creat Clear Calc Estimated GFR Random Glucose (60-115) mg/dL Calcium (8.4-10.2) mg/dL Total Bilirubin (0.0-1.0) mg/dL AST (5-37) U/L ALT (0-40) U/L Alkaline Phosphatase (39-117) U/L Total Protein (6.5-8.0) g/dL Albumin (3.5-5.0) g/dL COVID-19 (REED) Negative (Negative) COVID-19 Clin Com See Note Influenza Type A (RADHA) (Negative) Influenza Type B (RADHA) (Negative) Influenza A & B Note Discharge Plan Discharge Clinical Impression: Asthma with acute exacerbation Qualifiers: Asthma severity: moderate Asthma persistence: persistent Qualified Code(s): J45.41 - Moderate persistent asthma with (acute) exacerbation Patient Disposition: Home, Self-Care Instructions: Asthma (ED) Additional Instructions: return to ED for any worsening symptoms or concerns USE INHALER 2 TO 4 PUFFS EVERY 4 HOURS NEEDED FOR DYSPNEA AND WHEEZING Prescriptions: New prednisone 20 mg tablet 60 mg PO DAILY 4 Days Qty: 12 0RF No Action levofloxacin 500 mg tablet 500 mg PO DAILY 3 Days Qty: 3 0RF Rx Instructions: supervising MD Roxana Herron ibuprofen 800 mg tablet 800 mg PO Q8H PRN (Reason: pain) Qty: 14 0RF Rx Instructions: supervising MD Roxana Herron metronidazole 500 mg tablet 500 mg PO Q8H 10 Days Qty: 30 0RF Rx Instructions: supervising MD Roxana Herron prednisone 20 mg tablet 40 mg PO DAILY Qty: 10 0RF albuterol sulfate [ProAir HFA] 90 mcg/actuation HFA aerosol inhaler 2 puff inhalation Q4-6H PRN (Reason: Wheezing) Qty: 8.5 0RF albuterol sulfate 2.5 mg /3 mL (0.083 %) solution for nebulization 2.5 mg inhalation Q4-6H PRN (Reason: shortness of breath or wheezing) Qty: 90 0RF albuterol sulfate 90 mcg/actuation aerosol powdr breath activated 2 inh inhalation Q4-6H PRN (Reason: shortness of breath) Qty: 1 0RF azithromycin 250 mg tablet See Rx Instructions .ROUTE .COMPLEX Qty: 6 0RF Rx Instructions: For 250 mg dose pack: take 500 mg today (day 1), then 250 mg for 4 days (days 2-5) benzonatate 100 mg capsule 100 mg PO BID PRN (Reason: cough) Qty: 20 0RF
[2022-03-29 01:07] VITALS: PULSE 75; RESP 20; O2SAT 95
[2022-03-29] MEDS: predniSONE 20 MG TABLET 60 MG PO (01:08)
[2022-03-29] MEDS: Albuterol Sulfate 90 MCG 8 GM INHALER 2 PUFF INHALE (01:25)
[2022-03-29] MEDS: Albuterol Sulfate (0.083%) 2.5 MG/3 ML VIAL.NEB 5 MG INHALE (01:26)
[2022-03-29 01:28] VITALS: PULSE 85; RESP 16; O2SAT 95
[2022-03-29 03:44] VITALS: PULSE 93; RESP 18; O2SAT 94
== END 2022-03-29 03:44 | disposition home or self-care (01) ==
PROVIDERS: Emergency Provider Emergency Medicine
DX: J45.41 Moderate persistent asthma with (acute) exacerbation (principal); Z20.822 Contact with and (suspected) exposure to COVID-19; F17.200 Nicotine dependence, unspecified, uncomplicated
CPT/HCPCS: 71045; 80053; 85025; 87502; 87635; 94640; 99284

== ENCOUNTER 2022-04-08 20:30 | Emergency (ER) | payer OTHER, SELFPAY ==
[2022-04-08 20:39] VITALS: BP 122/47; PULSE 77; RESP 18; TEMP 37.2; O2SAT 100; BMI 34.0
[2022-04-09 00:26] VITALS: BP 125/77; PULSE 57; RESP 16; TEMP 36.8; O2SAT 98
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
[2022-04-09] MEDS: Lidocaine HCl 2% PF/Epi 1:200 20 ML VIAL SUBCUT (01:25)
--- NOTE | 2022-04-09 01:26 | PC.NURSE ---
provider into assess pt. medicated per mar. Will continue to monitor.
[2022-04-09 01:42] VITALS: BP 127/58; PULSE 63; RESP 16; TEMP 36.8; O2SAT 98
== END 2022-04-09 02:00 | disposition home or self-care (01) ==
PROVIDERS: Emergency Provider Emergency Medicine
DX: M95.11 Cauliflower ear, right ear (principal); F17.200 Nicotine dependence, unspecified, uncomplicated
CPT/HCPCS: 69000; 99282; 99284

== ENCOUNTER 2022-04-12 16:45 | Emergency (ER) | payer OTHER, SELFPAY ==
--- NOTE | 2022-04-12 19:13 | PC.NURSE ---
RN called for patient, no answer at this time.
== END 2022-04-12 20:39 | disposition left against medical advice (07) ==
PROVIDERS: Emergency Provider Emergency Medicine
DX: H92.01 Otalgia, right ear (principal)

== ENCOUNTER 2022-07-07 19:24 | Observation (INO) | payer OTHER, SELFPAY ==
--- NOTE | ~2022-07-07 | XR_ITS ---
EXAMINATION: XR CHEST CLINICAL INFORMATION: Shortness of breath. COMPARISON: Chest radiograph 03/28/2022. TECHNIQUE: Frontal view of the chest was obtained. FINDINGS: Normal appearance of the cardiomediastinal silhouette. Mild diffuse interstitial prominence but no focal airspace opacity, pleural effusion or pneumothorax. No acute osseous abnormalities. XR/XR chest 1V IMPRESSION: Very mild interstitial prominence which is nonspecific and could be seen with asthma, reactive airways disease, bronchitis or atypical/viral infections.
[2022-07-07 19:29] VITALS: BP 140/76; PULSE 107; RESP 18; TEMP 36.1; O2SAT 92; BMI 24.7
--- NOTE | 2022-07-07 19:29 | ECG_ITS ---
Test Reason : sob Blood Pressure : / mmHG Vent. Rate : 105 BPM Atrial Rate : 105 BPM P-R Int : 160 ms QRS Dur : 082 ms QT Int : 508 ms P-R-T Axes : 077 094 047 degrees QTc Int : 671 ms Sinus tachycardia Rightward axis Nonspecific ST abnormality Inferior leads Abnormal ECG Heart rate has increased Referred By: Juanita Ramirez Electronically Signed By:CHRIS GOULD MD
--- NOTE | 2022-07-07 19:30 | ED.ASTHMA ---
HPI - Asthma General Chief Complaint: Asthma <JENNIFER Best - Last Filed: 07/07/22 21:02> Stated Complaint: asthma <JENNIFER Best - Last Filed: 07/07/22 21:02> Time Seen by Provider: 07/07/22 20:06 <JENNIFER Best - Last Filed: 07/07/22 21:02> Source: patient <JENNIFER Best - Last Filed: 07/07/22 21:02> Mode of arrival: ambulatory <JENNIFER Best - Last Filed: 07/07/22 21:02> History of Present Illness HPI Narrative: 27yo M with PMHx asthma c/o sob, dry cough and chest tightness x1 week. Admits ran out of his inhaler. Denies fever, chills, recent travel, pedal edema, calf pain, sick contacts, recent steroid use <JENNIFER Best - Last Filed: 07/07/22 21:02> MD complaint: asthma attack , shortness of breath and wheezing <JENNIFER Best - Last Filed: 07/07/22 21:02> Onset (ago): day(s) <JENNIFER Best - Last Filed: 07/07/22 21:02> Related Data Home Medications: Previous Rx's Medication Instructions Recorded ibuprofen 800 mg tablet 800 mg PO Q8H PRN pain #14 tabs 02/12/21 levofloxacin 500 mg tablet 500 mg PO DAILY 3 days #3 tabs 02/12/21 metronidazole 500 mg tablet 500 mg PO Q8H 10 days #30 tabs 02/12/21 albuterol sulfate 90 mcg/actuation 2 inh inhalation Q4-6H PRN 10/07/21 breath activated powder inhaler shortness of breath #1 ea azithromycin 250 mg tablet See Rx Instructions PO .COMPLEX #6 10/07/21 tabs benzonatate 100 mg capsule 100 mg PO BID PRN cough #20 caps 10/07/21 albuterol sulfate 2.5 mg/3 mL 2.5 mg (3 mL) inhalation Q4-6H PRN 10/15/21 (0.083 %) solution for nebulization shortness of breath or wheezing #90 mL albuterol sulfate 90 mcg/actuation 2 puff inhalation Q4-6H PRN 10/15/21 aerosol inhaler (ProAir HFA) Wheezing #8.5 grams prednisone 20 mg tablet 40 mg PO DAILY #10 tabs 10/15/21 prednisone 20 mg tablet 60 mg PO DAILY 4 days #12 tabs 03/29/22 albuterol sulfate 2.5 mg/0.5 mL 5 mg inhalation Q4H PRN shortness 07/07/22 solution for nebulization of breath or wheezing #30 ea albuterol sulfate 90 mcg/actuation 2 puff inhalation Q4-6H PRN 07/07/22 aerosol inhaler shortness of breath or wheezing #6.7 grams prednisone 20 mg tablet 40 mg PO DAILY 5 days #10 tabs 07/07/22 <JENNIFER Best Last Filed: 07/07/22 21:02> Allergies/Adverse Reactions: Allergies Allergy/AdvReac Type Severity Reaction Status Date / Time Penicillins [PENICILLINS] Allergy Intermediate RASH Verified 03/28/22 23:00 <JENNIFER Best Last Filed: 07/07/22 21:02> Review of Systems Review of Systems: Constitutional: No Weight loss, No Fever, No Chills ENT/Mouth: No Ear Pain, No Nasal Congestion, No Sinus Pain, No Hoarseness, No sore throat, No Rhinorrhea, No Swallowing Difficulty Cardiovascular: + Chest tightness, + SOB Respiratory: + Cough, No Sputum, + Wheezing Gastrointestinal: No Nausea, No Vomiting, No Diarrhea, No Constipation, No Abdominal pain Genitourinary: No Dysuria, No Urinary Frequency, No Hematuria, No Flank Pain Musculoskeletal: No joint pain, No Myalgias, No Joint Swelling Skin: No Skin Lesions, No rash Neuro: No Weakness, No Numbness, No Paresthesias <JENNIFER Best Last Filed: 07/07/22 21:02> Yes all other systems are reviewed and are negative <JENNIFER Best Last Filed: 07/07/22 21:02> Constitutional: Constitutional: Reports as per HPI <JENNIFER Best Last Filed: 07/07/22 21:02> PMFSH Past Medical History Attestation statement: The following information was validated with the patient. <JENNIFER Best Last Filed: 07/07/22 21:02> Medical History: Medical History Asthma <JENNIFER Best - Last Filed: 07/07/22 21:02> Social History Social History: Social History Patient Tobacco Use Status: Current someday Tobacco user Substance Use Type: Other Advance Directives: No Advance Directives Information Provided: Yes <JENNIFER Best - Last Filed: 07/07/22 21:02> Physical Exam Vital Signs: Vital Signs: Last Vital Signs Temp 97 F 07/07/22 19:29 Pulse 102 H 07/07/22 20:40 Resp 18 07/07/22 20:40 BP 140/76 H 07/07/22 19:29 Pulse Ox 96 07/07/22 20:14 O2 Del Method 07/07/22 20:14 BMI result Body Mass Index 24.7 <JENNIFER Best - Last Filed: 07/07/22 21:02> Vital Signs: Last Vital Signs Temp 97 F 07/07/22 19:29 Pulse 102 H 07/07/22 20:40 Resp 18 07/07/22 20:40 BP 140/76 H 07/07/22 19:29 Pulse Ox 96 07/07/22 20:14 O2 Del Method 07/07/22 20:14 BMI result Body Mass Index 24.7 <JENNIFER Crystal - Last Filed: 07/07/22 22:19> Const: General: cooperative, healthy appearing and no acute distress <JENNIFER Best - Last Filed: 07/07/22 21:02> Orientation/consciousness: patient oriented x3 <JENNIFER Best - Last Filed: 07/07/22 21:02> Limitations: no limitations <JENNIFER Best - Last Filed: 07/07/22 21:02> HEENT: Head: Yes normal to inspection and Yes atraumatic <JENNIFER Best - Last Filed: 07/07/22 21:02> Ears: hearing grossly normal bilaterally <JENNIFER Best - Last Filed: 07/07/22 21:02> General nose exam: Normal external nose present <JENNIFER Best - Last Filed: 07/07/22 21:02> Face and sinus: Yes normal facial exam <JENNIFER Best - Last Filed: 07/07/22 21:02> Eyes: General: appearance normal, both eyes and all related structures <JENNIFER Best - Last Filed: 07/07/22 21:02> EOM: EOMs intact bilaterally <JENNIFER Best - Last Filed: 07/07/22 21:02> Neck: Neck: Yes normal visual inspection and Yes no meningeal signs <JENNIFER Best - Last Filed: 07/07/22 21:02> Resp: Effort & Inspection: normal respiratory effort and no respiratory distress <JENNIFER Best - Last Filed: 07/07/22 21:02> Auscultation: wheezes expiratory wheezes and throughout <JENNIFER Best - Last Filed: 07/07/22 21:02> Cardio: Rate: regular rate <JENNIFER Best - Last Filed: 07/07/22 21:02> Heart sounds: S1 normal heart sound present and S2 normal heart sound present <JENNIFER Best - Last Filed: 07/07/22 21:02> Skin: Rashes: no rashes <Juanita Ramirez PA - Last Filed: 07/07/22 21:02> Wounds: no wounds <JENNIFER Best - Last Filed: 07/07/22 21:02> Neuro: General: patient oriented x3, tone normal and no meningeal signs <JENNIFER Best - Last Filed: 07/07/22 21:02> Gait exam (Neuro): Normal gait present <JENNIFER Best - Last Filed: 07/07/22 21:02> Extrem: General: Yes normal to inspection, Yes no pedal edema and Yes no calf tenderness <JENNIFER Best - Last Filed: 07/07/22 21:02> Course Course Course Narrative: RME--27yo M with PMHx asthma c/o sob, cough and chest tightness x1 week. Ran out of inhaler. Denies recent travel, fever, le edema. Denies rrecent steroid use +Exp wheeze and dry cough noted on exam Labs, CXR, COID/flu/RSV, Duoneb and PO Prednisone ordered in triage -2021--No leukocytosis, labs otherwise unremarkable, troponin negative -2028--on re-eval better air movement > satting 95% on RA, still diffuse expiratory wheeze additional DuoNeb ordered -2057--influenza a positive -2099--On re- eval patient reports symptomatic improvement, mild end expiratory wheeze still noted, we will give 3rd DuoNeb and re-evaluate. ED care transferred to JENNIFER Sheets pending DuoNeb and re-evaluation. Anticipate discharge home. <JENNIFER Best - Last Filed: 07/07/22 21:02> Reevaluation(s) Reevaluation #1: Patient still has significant audible wheezes and expiratory wheezes throughout exam. Patient tells me he is really not feeling well. Will order magnesium, another DuoNeb and patient will be admitted for further intervention and treatment. <JENNIFER Crystal - Last Filed: 07/07/22 22:19> Time: 22:19 <JENNIFER Crystal - Last Filed: 07/07/22 22:19> Medications Administered Discontinued Medications Generic Name Dose Route Start Last Admin Trade Name Elanq PRN Reason Stop Dose Admin Albuterol Sulfate 2.5 mg 07/07/22 20:28 07/07/22 20:39 Albuterol Sulfate (0.083%) 2.5 Mg/3 Ml Vial.Neb INHALE 07/07/22 20:29 2.5 mg ONCE ONE Administration Albuterol Sulfate 2.5 mg/ 5 mg 07/07/22 21:01 07/07/22 21:09 Albuterol Sulfate 2.5 mg INHALE 07/07/22 21:02 5 mg ONCE ONE Administration Albuterol/Ipratropium 3 ml 07/07/22 19:29 07/07/22 20:07 Albuterol/Iprat 2.5/0.5mg 3 Ml Ampul.Neb INHALE 07/07/22 19:30 3 ml ONCE ONE Administration Albuterol/Ipratropium 3 ml 07/07/22 20:28 07/07/22 20:39 Albuterol/Iprat 2.5/0.5mg 3 Ml Ampul.Neb INHALE 07/07/22 20:29 3 ml ONCE ONE Administration Albuterol/Ipratropium 3 ml 07/07/22 21:00 07/07/22 21:09 Albuterol/Iprat 2.5/0.5mg 3 Ml Ampul.Neb INHALE 07/07/22 21:01 3 ml ONCE ONE Administration Prednisone 40 mg 07/07/22 19:29 07/07/22 19:35 Prednisone 20 Mg Tablet PO 07/07/22 19:30 40 mg ONCE ONE Administration <JENNIFER Best - Last Filed: 07/07/22 21:02> Medications Administered Discontinued Medications Generic Name Dose Route Start Last Admin Trade Name Freq PRN Reason Stop Dose Admin Albuterol Sulfate 2.5 mg 07/07/22 20:28 07/07/22 20:39 Albuterol Sulfate (0.083%) 2.5 Mg/3 Ml Vial.Neb INHALE 07/07/22 20:29 2.5 mg ONCE ONE Administration Albuterol Sulfate 2.5 mg/ 5 mg 07/07/22 21:01 07/07/22 21:09 Albuterol Sulfate 2.5 mg INHALE 07/07/22 21:02 5 mg ONCE ONE Administration Albuterol/Ipratropium 3 ml 07/07/22 19:29 07/07/22 20:07 Albuterol/Iprat 2.5/0.5mg 3 Ml Ampul.Neb INHALE 07/07/22 19:30 3 ml ONCE ONE Administration Albuterol/Ipratropium 3 ml 07/07/22 20:28 07/07/22 20:39 Albuterol/Iprat 2.5/0.5mg 3 Ml Ampul.Neb INHALE 07/07/22 20:29 3 ml ONCE ONE Administration Albuterol/Ipratropium 3 ml 07/07/22 21:00 07/07/22 21:09 Albuterol/Iprat 2.5/0.5mg 3 Ml Ampul.Neb INHALE 07/07/22 21:01 3 ml ONCE ONE Administration Prednisone 40 mg 07/07/22 19:29 07/07/22 19:35 Prednisone 20 Mg Tablet PO 07/07/22 19:30 40 mg ONCE ONE Administration <JENNIFER Crystal - Last Filed: 07/07/22 22:19> MDM - Asthma MDM Narrative Medical decision making narrative: 27yo M with PMHx asthma c/o sob, dry cough and chest tightness x1 week. On exam coughing, mildly tachycardic likely from cough, satting 92% on RA, diffuse expiratory wheeze noted, no pedal edema. Concern for asthma exacerbation. Rule out pneumonia versus viral syndrome. Lower suspicion for ACS/PE Plan: EKG, labs, CXR, COVID-19 influenza/RSV testing, DuoNeb, p.o. prednisone <JENNIFER Best - Last Filed: 07/07/22 21:02> Differential Diagnosis Differential diagnosis: Likely Acute exacerbation and Pneumonia <JENNIFER Best - Last Filed: 07/07/22 21:02> Medical Records Attestation: I reviewed the patient's medical records. <JENNIFER Best - Last Filed: 07/07/22 21:02> Lab Data Attestation: I reviewed the patient's lab results. <JENNIFER Best - Last Filed: 07/07/22 21:02> Result diagrams: : 07/07/22 19:53 07/07/22 19:53 <JENNIFER Best - Last Filed: 07/07/22 21:02> Labs: Lab Results 07/07/22 07/07/22 07/07/22 Range/Units 19:53 19:53 19:53 WBC 10.2 (4.8-10.8) X10*3/uL RBC 5.56 (4.60-5.80) X10*6/uL Hgb 15.8 (14.0-18.0) g/dl Hct 46.7 (42.0-52.0) % MCV 84.0 (80.0-98.0) fL MCH 28.4 (27.0-33.0) pg MCHC 33.8 (31.0-36.0) g/dl RDW 13.1 (11.0-16.0) % Plt Count 295 (160-400) X10*3/uL MPV 10.3 (9.4-12.4) fL Immature Gran % (Auto) 0.2 (0.0-0.4) % Neut % (Auto) 82.3 H (45-73) % Lymph % (Auto) 7.1 L (20-40) % Metcalfe % (Auto) 8.0 (2-11) % Eos % (Auto) 2.1 (0-4) % Baso % (Auto) 0.3 (0-2) % Lymph # (Auto) 0.7 L (1.2-4.9) X10*3/uL Metcalfe # (Auto) 0.8 (0.1-1.2) X10*3/uL Eos # (Auto) 0.2 (0.0-0.4) X10*3/uL Baso # (Auto) 0.0 (0.0-0.2) X10*3/uL Abs Immat Gran (auto) 0.02 (0.00-0.03) X10*3/uL Absolute Neuts (auto) 8.4 H (2.0-8.3) x10*3/uL Absolute Nucleated RBC 0.000 (0.0-0.012) X10*3/uL Nucleated RBC % (auto) 0.0 (0.0-0.2) /100WBC Sodium 140 (135-145) mmol/L Potassium 4.4 (3.3-5.1) mmol/L Chloride 102 (96-108) mmol/L Carbon Dioxide 29 (22-29) mmol/L Anion Gap 13 (12-20) BUN 10 (9-16) mg/dL Creatinine 0.85 (0.5-1.4) mg/dL Estim Creat Clear Calc 140.7 Estimated GFR > 60 Random Glucose 101 (60-115) mg/dL Calcium 10.1 D (8.4-10.2) mg/dL Troponin I High Sens (<3.5-35.0) ng/L Influenza Type A (PCR) POSITIVE A (Negative) Influenza Type B (PCR) NEGATIVE (Negative) RSV RNA Qual (PCR) NEGATIVE (Negative) SARS-CoV-2 RNA (RT-PCR) NEGATIVE (Negative) 07/07/22 Range/Units 19:53 WBC (4.8-10.8) X10*3/uL RBC (4.60-5.80) X10*6/uL Hgb (14.0-18.0) g/dl Hct (42.0-52.0) % MCV (80.0-98.0) fL MCH (27.0-33.0) pg MCHC (31.0-36.0) g/dl RDW (11.0-16.0) % Plt Count (160-400) X10*3/uL MPV (9.4-12.4) fL Immature Gran % (Auto) (0.0-0.4) % Neut % (Auto) (45-73) % Lymph % (Auto) (20-40) % Metcalfe % (Auto) (2-11) % Eos % (Auto) (0-4) % Baso % (Auto) (0-2) % Lymph # (Auto) (1.2-4.9) X10*3/uL Metcalfe # (Auto) (0.1-1.2) X10*3/uL Eos # (Auto) (0.0-0.4) X10*3/uL Baso # (Auto) (0.0-0.2) X10*3/uL Abs Immat Gran (auto) (0.00-0.03) X10*3/uL Absolute Neuts (auto) (2.0-8.3) x10*3/uL Absolute Nucleated RBC (0.0-0.012) X10*3/uL Nucleated RBC % (auto) (0.0-0.2) /100WBC Sodium (135-145) mmol/L Potassium (3.3-5.1) mmol/L Chloride (96-108) mmol/L Carbon Dioxide (22-29) mmol/L Anion Gap (12-20) BUN (9-16) mg/dL Creatinine (0.5-1.4) mg/dL Estim Creat Clear Calc Estimated GFR Random Glucose (60-115) mg/dL Calcium (8.4-10.2) mg/dL Troponin I High Sens < 3.5 (<3.5-35.0) ng/L Influenza Type A (PCR) (Negative) Influenza Type B (PCR) (Negative) RSV RNA Qual (PCR) (Negative) SARS-CoV-2 RNA (RT-PCR) (Negative) <JENNIFER Best - Last Filed: 07/07/22 21:02> Lab Results 07/07/22 07/07/22 07/07/22 Range/Units 19:53 19:53 19:53 WBC 10.2 (4.8-10.8) X10*3/uL RBC 5.56 (4.60-5.80) X10*6/uL Hgb 15.8 (14.0-18.0) g/dl Hct 46.7 (42.0-52.0) % MCV 84.0 (80.0-98.0) fL MCH 28.4 (27.0-33.0) pg MCHC 33.8 (31.0-36.0) g/dl RDW 13.1 (11.0-16.0) % Plt Count 295 (160-400) X10*3/uL MPV 10.3 (9.4-12.4) fL Immature Gran % (Auto) 0.2 (0.0-0.4) % Neut % (Auto) 82.3 H (45-73) % Lymph % (Auto) 7.1 L (20-40) % Metcalfe % (Auto) 8.0 (2-11) % Eos % (Auto) 2.1 (0-4) % Baso % (Auto) 0.3 (0-2) % Lymph # (Auto) 0.7 L (1.2-4.9) X10*3/uL Metcalfe # (Auto) 0.8 (0.1-1.2) X10*3/uL Eos # (Auto) 0.2 (0.0-0.4) X10*3/uL Baso # (Auto) 0.0 (0.0-0.2) X10*3/uL Abs Immat Gran (auto) 0.02 (0.00-0.03) X10*3/uL Absolute Neuts (auto) 8.4 H (2.0-8.3) x10*3/uL Absolute Nucleated RBC 0.000 (0.0-0.012) X10*3/uL Nucleated RBC % (auto) 0.0 (0.0-0.2) /100WBC Sodium 140 (135-145) mmol/L Potassium 4.4 (3.3-5.1) mmol/L Chloride 102 (96-108) mmol/L Carbon Dioxide 29 (22-29) mmol/L Anion Gap 13 (12-20) BUN 10 (9-16) mg/dL Creatinine 0.85 (0.5-1.4) mg/dL Estim Creat Clear Calc 140.7 Estimated GFR > 60 Random Glucose 101 (60-115) mg/dL Calcium 10.1 D (8.4-10.2) mg/dL Troponin I High Sens (<3.5-35.0) ng/L Influenza Type A (PCR) POSITIVE A (Negative) Influenza Type B (PCR) NEGATIVE (Negative) RSV RNA Qual (PCR) NEGATIVE (Negative) SARS-CoV-2 RNA (RT-PCR) NEGATIVE (Negative) 07/07/22 Range/Units 19:53 WBC (4.8-10.8) X10*3/uL RBC (4.60-5.80) X10*6/uL Hgb (14.0-18.0) g/dl Hct (42.0-52.0) % MCV (80.0-98.0) fL MCH (27.0-33.0) pg MCHC (31.0-36.0) g/dl RDW (11.0-16.0) % Plt Count (160-400) X10*3/uL MPV (9.4-12.4) fL Immature Gran % (Auto) (0.0-0.4) % Neut % (Auto) (45-73) % Lymph % (Auto) (20-40) % Metcalfe % (Auto) (2-11) % Eos % (Auto) (0-4) % Baso % (Auto) (0-2) % Lymph # (Auto) (1.2-4.9) X10*3/uL Metcalfe # (Auto) (0.1-1.2) X10*3/uL Eos # (Auto) (0.0-0.4) X10*3/uL Baso # (Auto) (0.0-0.2) X10*3/uL Abs Immat Gran (auto) (0.00-0.03) X10*3/uL Absolute Neuts (auto) (2.0-8.3) x10*3/uL Absolute Nucleated RBC (0.0-0.012) X10*3/uL Nucleated RBC % (auto) (0.0-0.2) /100WBC Sodium (135-145) mmol/L Potassium (3.3-5.1) mmol/L Chloride (96-108) mmol/L Carbon Dioxide (22-29) mmol/L Anion Gap (12-20) BUN (9-16) mg/dL Creatinine (0.5-1.4) mg/dL Estim Creat Clear Calc Estimated GFR Random Glucose (60-115) mg/dL Calcium (8.4-10.2) mg/dL Troponin I High Sens < 3.5 (<3.5-35.0) ng/L Influenza Type A (PCR) (Negative) Influenza Type B (PCR) (Negative) RSV RNA Qual (PCR) (Negative) SARS-CoV-2 RNA (RT-PCR) (Negative) <JENNIFER Crystal - Last Filed: 07/07/22 22:19> Discharge Plan Discharge Clinical Impression: Influenza A, Asthma with acute exacerbation <JENNIFER Best - Last Filed: 07/07/22 21:02> Patient Disposition: Admitted As Inpatient <JENNIFER Best - Last Filed: 07/07/22 21:02> Instructions: Asthma (ED) <JENNIFER Best - Last Filed: 07/07/22 21:02> Additional Instructions: Please use your inhaler and neb machine at home. Prednisone is a steroid please take as prescribed Please have close follow-up with your doctor If symptoms persist or worsen return to the emergency department <JENNIFER Best - Last Filed: 07/07/22 21:02> Prescriptions: New prednisone 20 mg tablet 40 mg PO DAILY 5 Days Qty: 10 0RF albuterol sulfate 90 mcg/actuation HFA aerosol inhaler 2 puff inhalation Q4-6H PRN (Reason: shortness of breath or wheezing) Qty: 6.7 0RF albuterol sulfate 2.5 mg/0.5 mL solution for nebulization 5 mg inhalation Q4H PRN (Reason: shortness of breath or wheezing) Qty: 30 0RF No Action levofloxacin 500 mg tablet 500 mg PO DAILY 3 Days Qty: 3 0RF Rx Instructions: supervising MD Roxana Herron ibuprofen 800 mg tablet 800 mg PO Q8H PRN (Reason: pain) Qty: 14 0RF Rx Instructions: supervising MD Roxana Herron metronidazole 500 mg tablet 500 mg PO Q8H 10 Days Qty: 30 0RF Rx Instructions: supervising MD Roxana Herron prednisone 20 mg tablet 40 mg PO DAILY Qty: 10 0RF albuterol sulfate [ProAir HFA] 90 mcg/actuation HFA aerosol inhaler 2 puff inhalation Q4-6H PRN (Reason: Wheezing) Qty: 8.5 0RF albuterol sulfate 2.5 mg /3 mL (0.083 %) solution for nebulization 2.5 mg inhalation Q4-6H PRN (Reason: shortness of breath or wheezing) Qty: 90 0RF albuterol sulfate 90 mcg/actuation aerosol powdr breath activated 2 inh inhalation Q4-6H PRN (Reason: shortness of breath) Qty: 1 0RF azithromycin 250 mg tablet See Rx Instructions .ROUTE .COMPLEX Qty: 6 0RF Rx Instructions: For 250 mg dose pack: take 500 mg today (day 1), then 250 mg for 4 days (days 2-5) benzonatate 100 mg capsule 100 mg PO BID PRN (Reason: cough) Qty: 20 0RF prednisone 20 mg tablet 60 mg PO DAILY 4 Days Qty: 12 0RF <JENNIFER Best - Last Filed: 07/07/22 21:02> Referrals: [facility] [Primary Care Provider] - 2 days <JENNIFER Best - Last Filed: 07/07/22 21:02> Stand Alone Forms: Work/School Release <JENNIFER Best - Last Filed: 07/07/22 21:02>
[2022-07-07] MEDS: predniSONE 20 MG TABLET 40 MG PO (19:35)
[2022-07-07 20:01] LABS: MANUAL DIFF FLAG NO
[2022-07-07 20:03] LABS: Basophils Percent Auto 0.3 % (0-2); Eosinophils Absolute Auto 0.2 X10*3/uL (0.0-0.4); Eosinophils Percent Auto 2.1 % (0-4); Hematocrit 46.7 % (42.0-52.0); Hemoglobin 15.8 g/dl (14.0-18.0); Imm Gran Abs Auto 0.02 X10*3/uL (0.00-0.03); Imm Gran Pct Auto 0.2 % (0.0-0.4); Lymphocytes Absolute Auto 0.7 X10*3/uL (1.2-4.9); Lymphocytes Percent Auto 7.1 % (20-40); Mean Corpuscular HGB Conc 33.8 g/dl (31.0-36.0); Mean Corpuscular Hemoglobin 28.4 pg (27.0-33.0); Mean Platelet Volume 10.3 fL (9.4-12.4); Monocytes Absolute Auto 0.8 X10*3/uL (0.1-1.2); Neutrophils Absolute Auto 8.4 x10*3/uL (2.0-8.3); Neutrophils Percent Auto 82.3 % (45-73); Platelet Count 295 X10*3/uL (160-400); Red Blood Count 5.56 X10*6/uL (4.60-5.80); Red Cell Distribution Width 13.1 % (11.0-16.0); White Blood Count 10.2 X10*3/uL (4.8-10.8)
[2022-07-07 20:07] VITALS: PULSE 107; O2SAT 96
[2022-07-07] MEDS: Albuterol/Iprat 2.5/0.5MG 3 ML AMPUL.NEB INHALE ×4 (20:07→22:30)
[2022-07-07 20:14] VITALS: PULSE 106; RESP 18; O2SAT 96
[2022-07-07 20:15] LABS: Anion Gap 13 (12-20); Blood Urea Nitrogen 10 mg/dL (9-16); Calcium 10.1 mg/dL (8.4-10.2); Carbon Dioxide 29 mmol/L (22-29); Chloride 102 mmol/L (96-108); Creatinine Clr Calc Pharmacy 140.7; Estimated Glomerular Filt Rate > 60; Glucose Random 101 mg/dL (60-115); Potassium 4.4 mmol/L (3.3-5.1); Sodium 140 mmol/L (135-145)
[2022-07-07 20:22] LABS: Troponin-I High Sensitivity < 3.5 ng/L (<3.5-35.0)
[2022-07-07 20:38] LABS: Influenza A PCR POSITIVE (Negative); Influenza B PCR NEGATIVE (Negative); Resp Syncy Virus RNA Qual PCR NEGATIVE (Negative); SARS COV2 PCR INHOUSE NEGATIVE (Negative)
[2022-07-07] MEDS: Albuterol Sulfate (0.083%) 2.5 MG/3 ML VIAL.NEB INHALE (20:39)
[2022-07-07 20:40] VITALS: PULSE 102; RESP 18; O2SAT 95
[2022-07-07] MEDS: Albuterol Sulfate 2.5 MG, Albuterol Sulfate (0.083%) 2.5 MG 5 MG INHALE (21:09)
[2022-07-07 22:31] VITALS: PULSE 102; RESP 18; O2SAT 94
[2022-07-07] MEDS: Magnesium Sulfate/H2O 2 GM/50 ML PIGGYBACK IV (22:37)
--- NOTE | 2022-07-07 22:46 | P.HPHOSP_ITS ---
History of Present Illness Date of Service: 07/07/22 Chief Complaint: Dyspnea This is a 27-year-old male with pertinent history of asthma who presents to the emergency department for evaluation of dyspnea. Patient states he started having dyspnea, worse with exertion and wheezing about a week ago. It was progressive in onset. He tried to use his home inhaler without relief. Patient ran out of his home inhaler and his dyspnea significantly worsened and hence he decided to present to the ER. Patient also complains of runny nose and watering of eyes. No fever but occasional chills. Also has a dry cough with occasional yellowish mucus. Patient denies chest discomfort, palpitations, abdominal pain, changes in urinary or bowel habits. In the emergency department, patient continued to be dyspneic and was wheezing after receiving multiple rounds of DuoNebs, steroids and magnesium. Review of Systems Constitutional: Constitutional: Reports chills and Reports malaise Cardiovascular: Cardiovascular: Reports no additional cardiovascular complain ts and Reports dyspnea on exertion Respiratory: Respiratory: Reports cough, Reports dyspnea on exertion and Reports wheezing Gastrointestinal: Gastrointestinal: Reports no additional gastrointestinal complaints Genitourinary: Genitourinary: Reports no additional male genitourinary complaints Allergic/Immunologic: Allergic/Immunologic: Reports wheezing PMFSH Medical History Asthma Social History Patient Tobacco Use Status: Current someday Tobacco user Substance Use Type: Other Advance Directives: No Advance Directives Information Provided: Yes Meds Allergies Allergy/AdvReac Type Severity Reaction Status Date / Time Penicillins [PENICILLINS] Allergy Intermediate RASH Verified 03/28/22 23:00 Active Medications: Current Medications Acetaminophen (Acetaminophen 325 Mg Tablet) 650 mg PO Q6H PRN PRN Reason: Pain, Mild (Pain Scale 1-3) Magnesium Sulfate (Magnesium Sulfate/H2o) 2 gm in 50 mls @ 25 mls/hr IV ONCE ONE Stop: 07/08/22 00:05 Last Admin: 07/07/22 22:37 Dose: 25 mls/hr Pharmacy Consult (Consult Rx Perform Med Rec) 1 each MISCELLANE ONCE PRN PRN Reason: Consult order Sodium Chloride (0.9 % Sodium Chloride Flush 3 Ml Syringe) 3 ml IVFLUSH QSHIFT [facility] Physical Exam Vital Signs and Narrative: Vital Signs: Last Vital Signs Temp 97 F 07/07/22 19:29 Pulse 102 H 07/07/22 22:31 Resp 18 07/07/22 22:31 BP 140/76 H 07/07/22 19:29 Pulse Ox 96 07/07/22 20:14 O2 Del Method 07/07/22 20:14 BMI result Body Mass Index 24.7 Young male lying in bed in mild distress Neck supple, no JVD Tachycardic with regular rhythm, S1-S2 heard Significant bilateral expiratory wheeze Abdomen soft nontender, no guarding, no rigidity Patient is awake, alert and oriented to self, place, time and person ; no focal motor deficit Psych: Normal mood No pedal edema Results Labs CBC and Chem 7: 07/07/22 19:53 07/07/22 19:53 Labs: Laboratory Results - last 24 hr 07/07/22 07/07/22 07/07/22 19:53 19:53 19:53 MCV 84.0 MCH 28.4 MCHC 33.8 RDW 13.1 Plt Count 295 MPV 10.3 Immature Gran % (Auto) 0.2 Neut % (Auto) 82.3 H Lymph % (Auto) 7.1 L [place] % (Auto) 8.0 Eos % (Auto) 2.1 Baso % (Auto) 0.3 Lymph # (Auto) 0.7 L [place] # (Auto) 0.8 Eos # (Auto) 0.2 Baso # (Auto) 0.0 Abs Immat Gran (auto) 0.02 Absolute Neuts (auto) 8.4 H Absolute Nucleated RBC 0.000 Nucleated RBC % (auto) 0.0 Anion Gap 13 Estim Creat Clear Calc 140.7 Estimated GFR > 60 Random Glucose 101 Calcium 10.1 D Troponin I High Sens Influenza Type A (PCR) POSITIVE A Influenza Type B (PCR) NEGATIVE RSV RNA Qual (PCR) NEGATIVE SARS-CoV-2 RNA (RT-PCR) NEGATIVE 07/07/22 19:53 MCV MCH MCHC RDW Plt Count MPV Immature Gran % (Auto) Neut % (Auto) Lymph % (Auto) [place] % (Auto) Eos % (Auto) Baso % (Auto) Lymph # (Auto) [place] # (Auto) Eos # (Auto) Baso # (Auto) Abs Immat Gran (auto) Absolute Neuts (auto) Absolute Nucleated RBC Nucleated RBC % (auto) Anion Gap Estim Creat Clear Calc Estimated GFR Random Glucose Calcium Troponin I High Sens < 3.5 Influenza Type A (PCR) Influenza Type B (PCR) RSV RNA Qual (PCR) SARS-CoV-2 RNA (RT-PCR) Imaging Radiologist's Impressions: Impressions Chest X-Ray 07/07/22 20:10 IMPRESSION: Very mild interstitial prominence which is nonspecific and could be seen with asthma, reactive airways disease, bronchitis or atypical/viral infections. Assessment and Plan (1) Asthma with acute exacerbation: Status: Acute (2) Influenza A: Status: Acute Plan This is a 27-year-old male with pertinent history of asthma who presents to the emergency department for evaluation of dyspnea. #. Acute respiratory distress due to: #. Acute asthma exacerbation in the setting of #. Influenza A infection - will admit patient and initiate scheduled and p.r.n. DuoNebs. Continue systemic steroids. Initiating oseltamivir for 5 days. Benzonatate prn for cough. No concern for bacterial superinfection, defer antibiotics DVT prophylaxis: None. Patient is ambulatory Full code Regular diet Quality Stroke Does the patient have a stroke diagnosis?: No VTE Prior VTE?: No VTE Risk Level:: Medical - low VTE Device Contraindication: Treatment Not Indicated VTE Drug Contraindication: Treatment Not Indicated
[2022-07-07 23:14] VITALS: BP 137/64; PULSE 115; RESP 19; TEMP 36.9; O2SAT 95
[2022-07-07] MEDS: Oseltamivir Phosphate 75 MG CAPSULE PO (23:52)
[2022-07-07] MEDS: methylPREDNISolone Sod Succ 125 MG/2 ML VIAL IVPUSH (23:52)
--- NOTE | 2022-07-07 23:55 | PC.NURSE ---
pt alert and oriented, skin appropriate for ethnicity, respirations even and unlabored, ls wheezing through out all bases, pt denies pain at this time, vs stable
[2022-07-07] MEDS: 0.9 % Sodium Chloride Flush 3 ML SYRINGE IVFLUSH (23:56)
[2022-07-08] VITALS (7 sets, daily range): BP systolic 113–141; BP diastolic 66–80; PULSE 84–115; RESP 14–20; TEMP 36.4–37.2; O2SAT 91–94
[2022-07-08] MEDS: methylPREDNISolone Sod Succ 40 MG/ML VIAL IVPUSH ×2 (08:36→21:10)
[2022-07-08] MEDS: Oseltamivir Phosphate 75 MG CAPSULE PO ×2 (08:36→21:11)
[2022-07-08] MEDS: Albuterol/Iprat 2.5/0.5MG 3 ML AMPUL.NEB INHALE ×3 (08:49→20:03)
--- NOTE | 2022-07-08 15:19 | HO.PM.IMPN ---
Subjective Subjective Date of Service: 07/08/22 Interval History: Asthma exacerbation, influenza a Review of Systems shortness of breath seems similar to yesterday denies any chest pain or abdominal pain or nausea or vomiting Physical Exam Vital Signs: Vital Signs: Last Vital Signs Temp 98.9 F 07/08/22 10:32 Pulse 110 H 07/08/22 12:05 Resp 18 07/08/22 12:05 BP 130/71 07/08/22 10:32 Pulse Ox 92 07/08/22 10:32 O2 Del Method 07/08/22 10:32 BMI result Body Mass Index 24.7 Appearance: Alert.? Oriented X3.?sob, talking on small sentences cvs: rrr, [id number] , no murmur res: air entry diminished at bases, has wheezing abd: no rebound or guarding ,nt, bs present. ext pulses present , no cyanosis . neuro: axo3 , nonfocal. Objective Data Active Medications Acetaminophen (Acetaminophen 325 Mg Tablet) 650 mg PO Q6H PRN PRN Reason: Pain, Mild (Pain Scale 1-3) Albuterol/Ipratropium (Albuterol/Iprat 2.5/0.5mg 3 Ml Ampul.Neb) 3 ml INHALE RQ4H PRN PRN Reason: wheezing Albuterol/Ipratropium (Albuterol/Iprat 2.5/0.5mg 3 Ml Ampul.Neb) 3 ml INHALE RQ4H WHILE AWAKE [facility] Last Admin: 07/08/22 12:04 Dose: 3 ml Documented By: ARBEN Benzonatate (Benzonatate 100 Mg Capsule) 200 mg PO TID PRN PRN Reason: Cough Melatonin (Melatonin 3 Mg Tablet) 6 mg PO BEDTIME PRN PRN Reason: Insomnia Methylprednisolone Sodium Succinate (Methylprednisolone Sod Succ 40 Mg/Ml Vial) 40 mg IVPUSH BID [facility] Last Admin: 07/08/22 08:36 Dose: 40 mg Documented By: ALICIA Ondansetron HCl (Ondansetron Hcl 4 Mg/2 Ml Vial) 4 mg IVPUSH Q8H PRN PRN Reason: Nausea and Vomiting Oseltamivir Phosphate (Oseltamivir Phosphate 75 Mg Capsule) 75 mg PO BID [facility] Last Admin: 07/08/22 08:36 Dose: 75 mg Documented By: ALICIA Pharmacy Consult (Consult Rx Perform Med Rec) 1 each MISCELLANE ONCE PRN PRN Reason: Consult order Sodium Chloride (0.9 % Sodium Chloride Flush 3 Ml Syringe) 3 ml IVFLUSH QSHIFT [facility] Last Admin: 07/08/22 07:24 Dose: Not Given Documented By: ALICIA Non-Admin Reason: Patient Asleep Labs CBC & Chem 7: 07/07/22 19:53 07/07/22 19:53 Labs: Laboratory Results - last 24 hr 07/07/22 07/07/22 07/07/22 19:53 19:53 19:53 MCV 84.0 MCH 28.4 MCHC 33.8 RDW 13.1 Plt Count 295 MPV 10.3 Immature Gran % (Auto) 0.2 Neut % (Auto) 82.3 H Lymph % (Auto) 7.1 L [place] % (Auto) 8.0 Eos % (Auto) 2.1 Baso % (Auto) 0.3 Lymph # (Auto) 0.7 L [place] # (Auto) 0.8 Eos # (Auto) 0.2 Baso # (Auto) 0.0 Abs Immat Gran (auto) 0.02 Absolute Neuts (auto) 8.4 H Absolute Nucleated RBC 0.000 Nucleated RBC % (auto) 0.0 Anion Gap 13 Estim Creat Clear Calc 140.7 Estimated GFR > 60 Random Glucose 101 Calcium 10.1 D Troponin I High Sens Influenza Type A (PCR) POSITIVE A Influenza Type B (PCR) NEGATIVE RSV RNA Qual (PCR) NEGATIVE SARS-CoV-2 RNA (RT-PCR) NEGATIVE 07/07/22 19:53 MCV MCH MCHC RDW Plt Count MPV Immature Gran % (Auto) Neut % (Auto) Lymph % (Auto) [place] % (Auto) Eos % (Auto) Baso % (Auto) Lymph # (Auto) [place] # (Auto) Eos # (Auto) Baso # (Auto) Abs Immat Gran (auto) Absolute Neuts (auto) Absolute Nucleated RBC Nucleated RBC % (auto) Anion Gap Estim Creat Clear Calc Estimated GFR Random Glucose Calcium Troponin I High Sens < 3.5 Influenza Type A (PCR) Influenza Type B (PCR) RSV RNA Qual (PCR) SARS-CoV-2 RNA (RT-PCR) Assessment and Plan (1) Asthma with acute exacerbation: Status: Acute (2) Influenza A: Status: Acute Plan 27-year-old male with pertinent history of asthma who presents to the emergency department for evaluation of dyspnea. #. Acute respiratory distress due to: #. Acute asthma exacerbation( mid intermittent asthma excerebation) in the setting of Influenza A infection still sob similar to yesterday, talking in small sentences continue scheduled and p.r.n. DuoNebs.? Continue systemic steroids.? Initiating oseltamivir for 5 days. Benzonatate prn for cough.? No concern for bacterial superinfection, defer antibiotics. DVT prophylaxis: None. Patient is ambulatory Quality Stroke Does the patient have a stroke diagnosis?: No VTE Prior VTE?: No VTE Risk Level:: Medical - low VTE Device Contraindication: Treatment Not Indicated VTE Drug Contraindication: Treatment Not Indicated
[2022-07-08] MEDS: Acetaminophen 325 MG TABLET 650 MG PO (18:19)
[2022-07-08] MEDS: 0.9 % Sodium Chloride Flush 3 ML SYRINGE IVFLUSH ×2 (18:21→21:11)
[2022-07-08] MEDS: Benzonatate 100 MG CAPSULE 200 MG PO (21:10)
[2022-07-09 03:14] VITALS: BP 128/72; PULSE 78; RESP 16; TEMP 36.6; O2SAT 93
[2022-07-09] MEDS: Albuterol/Iprat 2.5/0.5MG 3 ML AMPUL.NEB INHALE (07:51)
[2022-07-09 07:52] VITALS: PULSE 91; RESP 16; O2SAT 93
[2022-07-09 08:00] VITALS: BP 137/66; PULSE 78; RESP 16; TEMP 37.1; O2SAT 99
[2022-07-09] MEDS: methylPREDNISolone Sod Succ 40 MG/ML VIAL IVPUSH (08:51)
[2022-07-09] MEDS: Oseltamivir Phosphate 75 MG CAPSULE PO (08:51)
[2022-07-09] MEDS: 0.9 % Sodium Chloride Flush 3 ML SYRINGE IVFLUSH (08:51)
--- NOTE | 2022-07-09 11:16 | P.DS_ITS ---
DS: Providers Provider Date of Service: 07/09/22 Date of admission: 07/07/22 22:43 Primary care physician: [facility] DS: Diagnosis Discharge Diagnosis (1) Asthma with acute exacerbation: Status: Acute (2) Influenza A: Status: Acute DS: Summary Hospital Course Hospital Course: 27-year-old male with pertinent history of asthma who presents to the emergency department for evaluation of dyspnea.? Patient states he started having dyspnea, worse with exertion and wheezing about a week ago.? It was progressive in onset.? He tried to use his home inhaler without relief.? Patient ran out of his home inhaler and his dyspnea significantly worsened and hence he decided to present to the ER.? Patient also complains of runny nose and watering of eyes.? No fever but occasional chills.? Also has a dry cough with occasional yellowish mucus.? Patient denies chest discomfort, palpitations, abdominal pain, changes in urinary or bowel habits. In the emergency department, patient continued to be dyspneic and was wheezing after receiving multiple rounds of DuoNebs, steroids and magnesium. Hospital course: patient came with asthma exacerbation in setting of influenza a infection: patient was started on nebs, steroids, Tamiflu -improved, going home with Tamiflu and Prednisone is a steroid please take as prescribed Please have close follow-up with your doctor If symptoms persist or worsen return to the emergency department. Above management discussed with the patient in detail length he understand and in agreement with the plan, time spent 50 minute. Time Spent with Patient Time attestation: Total time spent providing and/or coordinating discharge services: Discharge coordination time: Greater than 30 minutes Quality: Safe Use of Opioids Does Pt have an Active Cancer Diagnosis on the Problem List?: No Quality: Stroke Does the patient have a stroke diagnosis?: No Physical Exam Vital Signs: Vital Signs: Last Vital Signs Temp 98.8 F 07/09/22 08:00 Pulse 78 07/09/22 08:00 Resp 16 07/09/22 08:00 BP 137/66 07/09/22 08:00 Pulse Ox 99 07/09/22 08:00 O2 Del Method 07/09/22 08:00 BMI result Body Mass Index 24.7 Appearance: Alert.? Oriented X3.? not in distress.? Eyes: Pupils equal, round and reactive to light.? Sclera nonicteric.? ENT: Pharynx normal.? Moist mucous membranes. cvs: rrr, [id number]. res: clear to auscultation ,no rhonchii or wheezing abd: no rebound or guarding ,nt, bs present. ext pulses present , no cyanosis . neuro: axo3 , nonfocal.1 DS: Data Imaging Chest x-ray: Radiologist's impression: ITS Impressions Chest X-Ray 07/07/22 20:10 IMPRESSION: Very mild interstitial prominence which is nonspecific and could be seen with asthma, reactive airways disease, bronchitis or atypical/viral infections. Discharge Plan Discharge Patient Disposition: Home, Self-Care Discharge Diagnosis: asthma with acute excerebation,Influenza A Referrals: [facility] [Primary Care Provider] - 2 days Discharge Medications: New prednisone 20 mg tablet 40 mg PO DAILY Qty: 8 0RF benzonatate 100 mg Capsule 200 mg PO TID PRN (Reason: Cough) Qty: 20 0RF oseltamivir [Tamiflu] 75 mg Capsule 75 mg PO BID Qty: 6 0RF albuterol sulfate [Ventolin HFA] 90 mcg/actuation Hfa Aerosol Inhaler 1 puff inhalation RQ4H PRN (Reason: ASTHMA) Qty: 8.5 0RF fluticasone furoate-vilanterol [Breo Ellipta] 100-25 mcg/dose Blister With Device 1 ea inhalation RDAILY Qty: 1 0RF Discharge Orders: Discharge Order (Routine); Ordered 07/09/22 Ordered By: Siri Lim Diet: Advance to usual diet Activity on Discharge: As tolerated Stand Alone Forms: Patient Portal Discharge page, Work/School Release Activity Restrictions/Additional Instructions: Please use your inhaler and neb machine at home. Prednisone is a steroid please take as prescribed Please have close follow-up with your doctor If symptoms persist or worsen return to the emergency department Care Plan Goals: patient came with asthma exacerbation in setting of influenza a infection: patient was started on nebs, steroids, Tamiflu -improved, going home with Tamiflu and Prednisone is a steroid please take as prescribed Please have close follow-up with your doctor If symptoms persist or worsen return to the emergency department Health Concerns: as above. Plan of Treatment: As above. Assessment: As above. Patient Instructions: Asthma (ED), Influenza (DC)
== END 2022-07-09 12:19 | disposition home or self-care (01) ==
LOC: HO.ED 22:20 → HO.EDOVER 23:20 → HO.S3 07-08 12:51
PROVIDERS: Physician Assistant; Admitting Provider Student in an Organized Health Care Education/Training Program; Emergency Provider Emergency Medicine; Visit Provider Internal Medicine
DX: J45.901 Unspecified asthma with (acute) exacerbation (principal); J10.1 Influenza due to other identified influenza virus with other respiratory manifestations; R00.0 Tachycardia, unspecified; Z20.822 Contact with and (suspected) exposure to COVID-19; F17.210 Nicotine dependence, cigarettes, uncomplicated; Z79.899 Other long term (current) drug therapy
CPT/HCPCS: 0241U; 36415; 71045; 80048; 84484; 85025; 93005; 94640; 96365; 96366; 96375; 96376; 99218; 99285; J2920; J2930; J3475

== ENCOUNTER 2022-08-24 21:56 | Emergency (ER) | payer OTHER, SELFPAY ==
[2022-08-24 22:02] VITALS: BP 128/80; PULSE 110; O2SAT 100
[2022-08-24 22:08] VITALS: BP 126/79; PULSE 100; RESP 16; O2SAT 96; BMI 26.6
--- NOTE | 2022-08-24 22:18 | ED.OVERDOSE ---
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 Patient bout Percocet from the street per [employer] they were likely laced with fentanyl. On arrival patient nauseated otherwise alert awake saturating 100% room air Related Data Previous Rx's Medication Instructions Recorded albuterol sulfate 90 mcg/actuation 1 puff inhalation RQ4H PRN ASTHMA 07/09/22 aerosol inhaler (Ventolin HFA) #8.5 grams benzonatate 100 mg capsule 200 mg PO TID PRN Cough #20 caps 07/09/22 fluticasone furoate 100 1 ea inhalation RDAILY #1 ea 07/09/22 mcg-vilanterol 25 mcg/dose inhalation powder (Breo Ellipta) oseltamivir 75 mg capsule (Tamiflu) 75 mg PO BID #6 caps 07/09/22 prednisone 20 mg tablet 40 mg PO DAILY #8 tabs 07/09/22 Allergies Allergy/AdvReac Type Severity Reaction Status Date / Time seafood Allergy Severe Anaphylaxis Verified 07/08/22 18:13 Penicillins [PENICILLINS] Allergy Intermediate RASH Verified 03/28/22 23:00 Review of Systems Review of Systems: Yes all other systems are reviewed and are negative PMFSH Past Medical History Medical History Asthma Social History Social History Household Members: Other Household Members Other:: Mom Housing: House Do you presently have visiting nurse or other home services: No Patient Tobacco Use Status: Current someday Tobacco user Tobacco use type: Cigarette e-Cigarette/Vaping Use: Currently Using Substance Use Type: Other Advance Directives: No Physical Exam Vital Signs: Vital Signs: Last Vital Signs Temp 98.9 F 08/25/22 00:30 Pulse 89 08/25/22 00:30 Resp 18 08/25/22 00:30 BP 126/79 08/25/22 00:30 Pulse Ox 98 08/25/22 00:30 O2 Del Method 08/25/22 00:30 BMI result Body Mass Index 26.6 Appearance: Alert. Oriented X3. No acute distress. Eyes: PERRLA, No Nystagmus ENT: Pharynx normal. Oral Mucosa moist Neck: Normal inspection. Neck supple. CVS: Normal heart rate and rhythm. Pulses normal. Respiratory: No respiratory distress. Equal air entry bilateral, no wheezing/rales/rhonchi Abdomen: Soft and nontender. Bowel sounds are present, no mass palpable, no CVA tenderness Skin: Skin warm and dry. Normal skin color. Normal skin turgor. Extremities: No lower extremity edema. No calf tenderness Neuro: Oriented X 3. No motor deficit. No sensory deficit.No cerebellar signs , cranial nerves II-XII intact Medical Decision Making Medical Decision Making MDM Narrative: Patient feels safe to go we use Percocet was sober for 6 months and does not need any help Discharge Plan Discharge Clinical Impression: Opiate or related narcotic overdose Patient Disposition: Home, Self-Care Instructions: Prescription Narcotic Overdose (ED) Additional Instructions: Do not use opiates and follow up with detox Prescriptions: No Action prednisone 20 mg tablet 40 mg PO DAILY Qty: 8 0RF benzonatate 100 mg Capsule 200 mg PO TID PRN (Reason: Cough) Qty: 20 0RF oseltamivir [Tamiflu] 75 mg Capsule 75 mg PO BID Qty: 6 0RF albuterol sulfate [Ventolin HFA] 90 mcg/actuation Hfa Aerosol Inhaler 1 puff inhalation RQ4H PRN (Reason: ASTHMA) Qty: 8.5 0RF fluticasone furoate-vilanterol [Breo Ellipta] 100-25 mcg/dose Blister With Device 1 ea inhalation RDAILY Qty: 1 0RF Interventions: [place]offey-Suicide Risk Severity Scale Last Done: 08/25/22 00:43 ED Discharge Assessment Last Done: 08/25/22 01:05 Discharge Date/Time: 08/25/22 01:10
[2022-08-25 00:30] VITALS: BP 126/79; PULSE 89; RESP 18; TEMP 37.2; O2SAT 98
== END 2022-08-25 01:10 | disposition home or self-care (01) ==
PROVIDERS: Emergency Provider Internal Medicine
DX: R40.4 Transient alteration of awareness (principal); T40.2X1A Poisoning by other opioids, accidental (unintentional), initial encounter; F11.10 Opioid abuse, uncomplicated; Y92.410 Unspecified street and highway as the place of occurrence of the external cause; F17.210 Nicotine dependence, cigarettes, uncomplicated
CPT/HCPCS: 99282; 99284

== ENCOUNTER 2022-08-29 22:26 | Emergency (ER) | payer OTHER, SELFPAY ==
--- NOTE | 2022-08-29 22:33 | ED.OVERDOSE ---
HPI - Overdose General Stated Complaint: Poss OD per EMS Time Seen by Provider: 08/29/22 22:32 Source: patient and EMS Mode of arrival: EMS Limitations: no limitations History of Present Illness HPI Narrative: 27-year-old male came in by ambulance for evaluation after overdosed on Percocet. Patient admitted to taking 3 pills of Percocet 5 mg each brought them from the street heroin bag was found with the patient the patient declined using her own with the Percocet, patient declined using IV drugs, the police was the 1st responder patient was given 3 of 4 mg of Narcan intranasally the patient started regaining consciousness, patient is complaining of nausea vomiting patient declined any other coingestion. Patient declined SI, no HI, no hallucination. Related Data Previous Rx's Medication Instructions Recorded albuterol sulfate 90 mcg/actuation 1 puff inhalation RQ4H PRN ASTHMA 07/09/22 aerosol inhaler (Ventolin HFA) #8.5 grams benzonatate 100 mg capsule 200 mg PO TID PRN Cough #20 caps 07/09/22 fluticasone furoate 100 1 ea inhalation RDAILY #1 ea 07/09/22 mcg-vilanterol 25 mcg/dose inhalation powder (Breo Ellipta) oseltamivir 75 mg capsule (Tamiflu) 75 mg PO BID #6 caps 07/09/22 prednisone 20 mg tablet 40 mg PO DAILY #8 tabs 07/09/22 Allergies Allergy/AdvReac Type Severity Reaction Status Date / Time seafood Allergy Severe Anaphylaxis Verified 08/29/22 22:38 Penicillins [PENICILLINS] Allergy Intermediate RASH Verified 08/29/22 22:38 Review of Systems Review of Systems: All other systems are reviewed and are negative Constitutional: Reports as per HPI and Reports no additional constitutional complaints Eyes: Reports as per HPI and Reports no additional eye complaints Reports system reviewed and no additional complaints, except as documented Cardiovascular: Reports as per HPI and Reports no additional cardiovascular complaints Respiratory: Reports as per HPI and Reports no additional respiratory complaints Gastrointestinal: Reports as per HPI and Reports no additional gastrointestinal complaints Genitourinary: Reports no additional female genitourinary complaints Musculoskeletal: Reports no additional musculoskeletal complaints Skin/Breast: Reports system reviewed and no additional complaints, except as docu Psychiatric: Reports no additional psychiatric complaints Endocrine: Reports no additional endocrine complaints Hematologic/Lymphatic: Reports no additional hematologic/lymphatic complaints Allergic/Immunologic: Reports no additional allergic/immunologic complaints Reports system reviewed and no additional complaints, except as documented and Reports Abnormal speech present [facility] Past Medical History Medical History Asthma Social History Social History Household Members: Other Household Members Other:: Mom Housing: House Do you presently have visiting nurse or other home services: No Patient Tobacco Use Status: Current someday Tobacco user Tobacco use type: Cigarette e-Cigarette/Vaping Use: Currently Using Substance Use Type: Other Physical Exam Vital Signs: Vital Signs: Vital signs have been reviewed as appeared to be correct. Blood pressure normal. Heart rate normal. Respiration rate normal. Temperature normal. Oxygen saturation normal. Appearance: Alert. Oriented X3. No acute distress. Head: Normal external exam. Normocephalic. Atraumatic. No Soliz signs noted. No raccoon eyes noted Eyes: PERRLA. EOMI. Conjunctiva and sclera normal. Eyelids normal. ENT: TM's Normal. Pharynx normal. Uvula midline. Moist mucous membranes. No trismus noted. No drooling noted. No muffled voice noted. Neck: Normal inspection. Neck supple. FROM. No adenopathy. Thyroid Normal. No meningeal signs. No neck mass noted. CVS: Normal heart rate and rhythm. Heart sound normal. No murmurs noted. Pulses normal throughout. Respiratory: No respiratory distress. Painless inspiration. Breath sounds normal. No wheezes/rales/rhonchi noted. Chest nontender. No accessory muscle usage noted or decreased air movement noted. Abdomen: Soft and nontender. Bowel sounds normal in all 4 quadrants. No distention noted. No organomegaly noted. No visible injury noted. Back: No CVA tenderness. Full range of motion noted. Skin: Skin warm and dry. Normal skin color. Normal skin turgor. No rashes/lesions/lacerations noted. Extremities: No lower extremity edema. Extremities exhibit normal range of motion. Extremities nontender. Neuro: Oriented X 3. Cranial nerve exam: II-XII are grossly intact No motor deficit. No sensory deficit. Reflexes normal. Patient Orientation: Person, Place, Time and Situation, okay hygiene and grooming. Fair eye contact, attentive, no tics or tremors. Level of Consciousness: Awake, Appropriate and Alert Patient Behavior: Appropriate, Guarded, Cooperative and Anxious Mood Description: Constricted, Blunted and Apprehensive Affect Description: Constricted, Blunted and Apprehensive Patient Cognition Impaired: No Ability to Follow Directions: Excellent Speech Pattern: Clear, Appropriate and Spontaneous Speech, nonpressured, spontaneous with regular rate and rhythm, normal volume and prosody. No dysarthria. Memory Description: Intact, Immediate Intact and Short Term Intact Hallucinations: None Delusions: Not Present Thought Process: Intact Thought Content: positive for Intact, positive for Logical, denies Suicidal Ideation and denies Homicidal Ideation. Depressive Symptoms: Not present. Judgement and Insight: Limited but adequate. Course Course Course Narrative: 27-year-old male came in after overdosed on Percocet required 4 mg of Narcan intranasally x3 given by the police, patient remained in the emergency department for 1 hour been monitored patient is awake, alert, oriented x3 able to keep stable vital signs. Medical Decision Making Differential Diagnosis Differential Diagnoses: The differential diagnosis associated with the presentation includes (Accidental drug overdose, SI, HI, acute psychosis, respiratory suppression.) Discharge Plan Discharge Clinical Impression: Accidental overdose Patient Disposition: Home, Self-Care Instructions: Adult Overdose (ED) Prescriptions: No Action prednisone 20 mg tablet 40 mg PO DAILY Qty: 8 0RF benzonatate 100 mg Capsule 200 mg PO TID PRN (Reason: Cough) Qty: 20 0RF oseltamivir [Tamiflu] 75 mg Capsule 75 mg PO BID Qty: 6 0RF albuterol sulfate [Ventolin HFA] 90 mcg/actuation Hfa Aerosol Inhaler 1 puff inhalation RQ4H PRN (Reason: ASTHMA) Qty: 8.5 0RF fluticasone furoate-vilanterol [Breo Ellipta] 100-25 mcg/dose Blister With Device 1 ea inhalation RDAILY Qty: 1 0RF
[2022-08-29 22:39] VITALS: BP 124/69; BP 137/73; PULSE 100; PULSE 120; RESP 18; TEMP 36.2; O2SAT 98
[2022-08-29 22:41] VITALS: BMI 28.0
--- NOTE | 2022-08-29 23:20 | HO.SUDE ---
CARE team met with pt to offer a substance use disorder evaluation. Pt is a 27 year old male who arrived to the ED via ambulance secondary to an accidental opiate overdose and received 12mg of nasal narcan prior to arrival. Pt reported that he took 3- 5mg tablets of percocet and stated that he must have fainted because he hadn't eaten all day. He added that there is a lot of fainting in my family, it happens to us. He doesn't believe that he overdosed and reported that he uses percocets, no heroin and no IV use. Pt shared that he has metal in his wrist from a past injury that causes him pain and that the percocets help with that. He acknowledged that he may be addicted to them but isn't concerned about his use at this time. He accepted information for [facility] and was encouraged to reach out to either resource for support or with any questions. ED physician updated re: consult.
[2022-08-30] MEDS: Naloxone HCl Nasal TAKE HOME 4 MG SPRAY NOSTRILALT (00:25)
== END 2022-08-30 00:38 | disposition home or self-care (01) ==
PROVIDERS: Emergency Provider Emergency Medicine; PCP Internal Medicine
DX: R11.2 Nausea with vomiting, unspecified (principal); T40.2X1A Poisoning by other opioids, accidental (unintentional), initial encounter; Y92.410 Unspecified street and highway as the place of occurrence of the external cause; F11.90 Opioid use, unspecified, uncomplicated; F17.210 Nicotine dependence, cigarettes, uncomplicated; Z79.899 Other long term (current) drug therapy
CPT/HCPCS: 99284; 99285

== ENCOUNTER 2022-09-03 05:04 | Emergency (ER) | payer OTHER, SELFPAY ==
--- NOTE | 2022-09-03 | ECG_ITS ---
Test Reason : OVERDOSE Blood Pressure : / mmHG Vent. Rate : 111 BPM Atrial Rate : 111 BPM P-R Int : 166 ms QRS Dur : 082 ms QT Int : 332 ms P-R-T Axes : 065 084 016 degrees QTc Int : 451 ms Sinus tachycardia Otherwise normal ECG When compared with ECG of 07-JUL-2022 19:43, No significant changes seen Referred By: Generic ED Physician Electronically Signed By:Ang Greco
--- NOTE | ~2022-09-03 | XR_ITS ---
EXAMINATION: XR ELBOW, RIGHT CLINICAL INFORMATION: Pain COMPARISON: None TECHNIQUE: AP, lateral, and oblique views of the right elbow. FINDINGS: No fracture or dislocation. Alignment is anatomic. Joint spaces are maintained. No joint effusion. The soft tissues are unremarkable. XR/XR elbow RT min 3V IMPRESSION: Normal right elbow.
[2022-09-03 05:14] VITALS: BP 131/76; BP 151/88; PULSE 111; RESP 20; TEMP 36.6; O2SAT 100; O2SAT 97; BMI 27.6
--- NOTE | 2022-09-03 05:33 | PC.NURSE ---
this rn assumed care of pt at 0514. pt changed over to hospital attire. vss. security called to obtain belongs to bring to [place]. ore charger assisted with this. pt placed on cardiac exercise specialist. ekg order placed ad being obtained at this time. pt arrousable and able to answer questions appropriately
--- NOTE | 2022-09-03 05:54 | ED.OVERDOSE ---
HPI - Overdose General Chief Complaint: Overdose Stated Complaint: overdose Time Seen by Provider: 09/03/22 05:44 History of Present Illness HPI Narrative: Patient is a 27-year-old male history polysubstance abuse history of asthma complaining of having used multiple tablets of Percocet up to 5. Patient was found unresponsive. Patient uses for recreational reasons. No suicidal homicidal ideations. Was given Narcan which will cover patient nicely. Patient then sent to the ED for further evaluation. He is also complaining of pain to his right elbow from an earlier fall. Patient from home. Denies any head injury. No coughing or congestion or upper respiratory symptoms. Related Data Previous Rx's Medication Instructions Recorded albuterol sulfate 90 mcg/actuation 1 puff inhalation RQ4H PRN ASTHMA 07/09/22 aerosol inhaler (Ventolin HFA) #8.5 grams benzonatate 100 mg capsule 200 mg PO TID PRN Cough #20 caps 07/09/22 fluticasone furoate 100 1 ea inhalation RDAILY #1 ea 07/09/22 mcg-vilanterol 25 mcg/dose inhalation powder (Breo Ellipta) oseltamivir 75 mg capsule (Tamiflu) 75 mg PO BID #6 caps 07/09/22 prednisone 20 mg tablet 40 mg PO DAILY #8 tabs 07/09/22 Allergies Allergy/AdvReac Type Severity Reaction Status Date / Time seafood Allergy Severe Anaphylaxis Verified 08/29/22 22:38 Penicillins [PENICILLINS] Allergy Intermediate RASH Verified 08/29/22 22:38 Review of Systems Review of Systems: Found unconscious, pain to the right elbow PMFSH Past Medical History Attestation statement: The following information was validated with the patient. Medical History Asthma Social History Social History Household Members: Other Household Members Other:: Mom Housing: House Do you presently have visiting nurse or other home services: No Patient Tobacco Use Status: Current someday Tobacco user Tobacco use type: Cigarette Smoked in Last 30 Days: Yes e-Cigarette/Vaping Use: Currently Using Use of substances other than those prescribed or required for medical reasons: Yes Substance Use Type: Marijuana and Opiates Advance Directives: No Advance Directives Information Provided: Yes Physical Exam Vital Signs: Vital Signs: Last Vital Signs Temp 97.8 F 09/03/22 05:14 Pulse 111 H 09/03/22 05:14 Resp 20 09/03/22 05:14 BP 131/76 09/03/22 05:14 Pulse Ox 100 09/03/22 05:14 O2 Del Method 09/03/22 05:14 BMI result Body Mass Index 27.6 Appearance: Alert. Oriented X3. No acute distress. Eyes: Pupils equal, round and reactive to light. ENT: Pharynx normal. Neck: Normal inspection. Neck supple. No lymph nodes noted. No crepitus CVS: Normal heart rate and rhythm. Pulses normal. Normal S1 and S2 Respiratory: No respiratory distress. Breath sounds normal. No Wheezing. No rales Abdomen: Soft and nontender. No rigidity. No distention. good BS x4 Skin: Skin warm and dry. Normal skin color. Normal skin turgor. Extremities: Positive pain to the right elbow. Swelling. Pulse is 2+ at radial. Sensation intact. No Lacerations. No Rash Neuro: Oriented X 3. No motor deficit. No sensory deficit. Moving all extermities. No slurred speech Medical Decision Making Differential Diagnosis Positive fall. Hitting right elbow. Will get x-ray of the elbow to rule out fractures versus dislocation versus contusion. No overt signs of infection. Will monitor patient carefully for respiratory depression. Patient is currently in stable condition. Patient's x-ray was personally reviewed it was grossly negative for any acute evidence of fracture. Final reading from Radiology was also negative. Patient monitor in the emergency department for 1-1/2 hours. Is awake alert sober. Will discharge patient home. Explained to patient the need to stop using narcotics. Patient has a list of detox at home. Will give patient a Narcan kit to take home. In stable condition. Radiology Impression Discussion of test interpretation with radiology: I have reviewed the radiologist's reading. Social Determinants Patient?s care significantly limited by Social Determinants of Health including: Alcoholism and drug addiction in family Discharge Plan Discharge Clinical Impression: Narcotic overdose Patient Disposition: Home, Self-Care Instructions: Narcotic Safety (ED), Narcotic Use Disorder (ED) Additional Instructions: Please stop using narcotics. You almost today. Please go to detox Prescriptions: No Action prednisone 20 mg tablet 40 mg PO DAILY Qty: 8 0RF benzonatate 100 mg Capsule 200 mg PO TID PRN (Reason: Cough) Qty: 20 0RF oseltamivir [Tamiflu] 75 mg Capsule 75 mg PO BID Qty: 6 0RF albuterol sulfate [Ventolin HFA] 90 mcg/actuation Hfa Aerosol Inhaler 1 puff inhalation RQ4H PRN (Reason: ASTHMA) Qty: 8.5 0RF fluticasone furoate-vilanterol [Breo Ellipta] 100-25 mcg/dose Blister With Device 1 ea inhalation RDAILY Qty: 1 0RF Referrals: Hans Willis MD [Primary Care Provider] - Interventions: [place]-Suicide Risk Severity Scale Last Done: 09/03/22 05:40
--- NOTE | 2022-09-03 05:59 | PC.NURSE ---
pt requested assistance in obtaining urinal to void as well as tissues. this rn provided both urinal and tissues. pt provided with privacy to void. pt able to use urinal at bedside. pt resting comfortable at this time. awaiting results for xray at this time
--- NOTE | 2022-09-03 06:47 | PC.NURSE ---
this rn and burial needs salesperson attempted to walk pt prior to discharge per dr ferrara orders. pt dizzy and unsteady. pt unable to take more than two steps before losing balance. this rn and burial needs salesperson redirected back to bed at this time. dr ferrara notified at this time. per will place lab work orders and iv fluid order
--- NOTE | 2022-09-03 06:59 | PC.NURSE ---
Patient reports dizziness impaired gait MD aware. Patient ok to eat drink is refusing IVF MD aware, labs being drawn patient eating and drinking will reassess. No distress noted patietn awake AOx 4 VSS will CTM
[2022-09-03 07:12] LABS: Basophils Absolute Auto 0.1 X10*3/uL (0.0-0.2); Basophils Percent Auto 0.3 % (0-2); Eosinophils Percent Auto 0.1 % (0-4); Hematocrit 41.3 % (42.0-52.0); Hemoglobin 14.1 g/dl (14.0-18.0); Imm Gran Abs Auto 0.12 X10*3/uL (0.00-0.03); Imm Gran Pct Auto 0.6 % (0.0-0.4); Lymphocytes Absolute Auto 1.2 X10*3/uL (1.2-4.9); MANUAL DIFF FLAG SCAN; Mean Corpuscular HGB Conc 34.1 g/dl (31.0-36.0); Mean Corpuscular Hemoglobin 28.5 pg (27.0-33.0); Mean Corpuscular Volume 83.4 fL (80.0-98.0); Monocytes Absolute Auto 2.5 X10*3/uL (0.1-1.2); Neutrophils Absolute Auto 15.4 x10*3/uL (2.0-8.3); Platelet Count 295 X10*3/uL (160-400); Red Blood Count 4.95 X10*6/uL (4.60-5.80); Red Cell Distribution Width 13.2 % (11.0-16.0); SCAN SMEAR FLAG 1; White Blood Count 19.2 X10*3/uL (4.8-10.8)
[2022-09-03] MEDS: Naloxone HCl Nasal TAKE HOME 4 MG SPRAY NOSTRILALT (07:23)
[2022-09-03 07:37] LABS: Anion Gap 14 (12-20); Blood Urea Nitrogen 12 mg/dL (9-16); Calcium 9.1 mg/dL (8.4-10.2); Carbon Dioxide 25 mmol/L (22-29); Chloride 106 mmol/L (96-108); Creatinine Clr Calc Pharmacy 124.7; Estimated Glomerular Filt Rate > 60; Ethanol < 10 mg/dL; Glucose Random 55 mg/dL (60-115); Potassium 3.8 mmol/L (3.3-5.1); Sodium 141 mmol/L (135-145)
--- NOTE | 2022-09-03 07:44 | PC.NURSE ---
Patient BS low is mentating is AOx 4 no distress noted provided with food orange juice and gina octavia patient tolerated PO intake will reassess recheck BS and CTM
[2022-09-03 08:01] LABS: Glucose, Whole Blood 71 mg/dL (60-115)
[2022-09-03] MEDS: Ondansetron ODT 4 MG TAB.RAPDIS TRANSLINGU (08:04)
--- NOTE | 2022-09-03 08:05 | PC.NURSE ---
Patient had episode of vomiting provider aware zofran ODT ordered, will reassess.
[2022-09-03 08:08] LABS: SLIDE REVIEW VERIFIED
[2022-09-03 08:51] LABS: Glucose, Whole Blood 128 mg/dL (60-115)
[2022-09-03 08:55] VITALS: BP 135/85; PULSE 98; RESP 16; O2SAT 100
--- NOTE | 2022-09-03 10:20 | HO.SUDE ---
This news writer met w/ patient, patient was alert, oriented, sitting up in bed, drinking fluids. Patient reports hx of overdose, 8 in the past. Patient states 12 years old age of first use of opiates. Patient reports using 6 fentanyl pressed pills daily, PO. Patient reports ETOH use, binge drinking for 1 week, then not drinking for 1 week for past several years. Patient reports when binge drinking, drinking 1 pint hard ETOH daily. Patient reports no history of treatment, no history of MAT/LISA. Patient reports interested in detox and Suboxone MAT. This news writer provided resources, reviewed process for [facility] bedsearch, reviewed MAT clinic referral process, contacts provided. Patient reports has narcan knows how to use it, patient states will be d/c home, has stable housing and will be with someone today. Harm reduction and overdose prevention reviewed. Patient given recovery team contact information, encouraged to call. Patient verbalized understanding.
== END 2022-09-03 09:10 | disposition home or self-care (01) ==
PROVIDERS: Emergency Provider Emergency Medicine Emergency Medical Services; PCP Internal Medicine
DX: R40.4 Transient alteration of awareness (principal); T40.2X1A Poisoning by other opioids, accidental (unintentional), initial encounter; F19.10 Other psychoactive substance abuse, uncomplicated; Y92.039 Unspecified place in apartment as the place of occurrence of the external cause; M25.521 Pain in right elbow; Z79.899 Other long term (current) drug therapy
CPT/HCPCS: 36415; 73080; 80048; 82077; 82947; 85025; 93005; 99284; 99285

== ENCOUNTER 2022-09-04 13:20 | Inpatient (IN) | payer OTHER, SELFPAY ==
[2022-09-04] VITALS (9 sets, daily range): BP systolic 108–162; BP diastolic 54–98; PULSE 65–138; RESP 18–20; TEMP 36.7–37.2; O2SAT 95–100; BMI 28.0
--- NOTE | ~2022-09-04 | XR_ITS ---
EXAMINATION: XR CHEST CLINICAL INFORMATION: Weakness, possible overdose, cough COMPARISON: 07/07/2022 TECHNIQUE: 2 views of the chest were obtained. FINDINGS: Worsened coarse interstitial prominence. No focal consolidation or mass. No pleural effusion or pneumothorax. Normal heart size. Regional skeleton intact. XR/XR chest 2V IMPRESSION: Worsened coarse interstitial prominence. The appearance is nonspecific and could reflect pulmonary edema, ARDS, bronchitis, interstitial pneumonitis, etc.
--- NOTE | 2022-09-04 13:35 | PC.NURSE ---
pt a&ox3, vss, per pt he took 3 percocet today, found unresponsive outside by PD, given 4mg [place] narcan with positive effect, pt given apple juice and a sandwich.
--- NOTE | 2022-09-04 14:00 | ED.OVERDOSE ---
HPI - Overdose General Chief Complaint: Overdose Stated Complaint: OD, NARCAN GIVEN W/GOOD RESULT Time Seen by Provider: 09/04/22 13:32 Source: patient and EMS Mode of arrival: EMS Limitations: no limitations History of Present Illness HPI Narrative: This is a 27-year-old male with a history of asthma who presents after a unintentional overdose. Per EMS patient took 3 tablets of Percocet and was found outside his mother's house unresponsive on the ground. Patient received 4 mg of intranasal Narcan with positive affect. Patient seen here yesterday for similar story. Patient reports this is not intentional. He tells me he takes a Percocet for various aches and pains. He buys it from a friend. He denies additional substance use. No SI or HI. No physical complaints Not interested in detox or speaking to strength and conditioning coach Related Data Home Medications Medication Instructions Recorded Confirmed albuterol sulfate 2.5 mg/3 mL 3 ml inhalation Q4-6H PRN wheezing 09/04/22 09/04/22 (0.083 %) solution for nebulization Previous Rx's Medication Instructions Recorded albuterol sulfate 90 mcg/actuation 1 puff inhalation RQ4H PRN ASTHMA 07/09/22 aerosol inhaler (Ventolin HFA) #8.5 grams fluticasone furoate 100 1 ea inhalation RDAILY #1 ea 07/09/22 mcg-vilanterol 25 mcg/dose inhalation powder (Breo Ellipta) Allergies Allergy/AdvReac Type Severity Reaction Status Date / Time seafood Allergy Severe Anaphylaxis Verified 09/04/22 13:27 Penicillins [PENICILLINS] Allergy Intermediate RASH Verified 09/04/22 13:27 Review of Systems Review of Systems: Yes all other systems are reviewed and are negative Constitutional: Constitutional: Reports no additional constitutional complaints, Denies body ache(s), Denies chills, Denies fever(s), Denies headache(s) and Denies weakness Eyes: Eyes: Reports no additional eye complaints and Denies change in vision ENT: Reports system reviewed and no additional complaints, except as documented, Denies dizziness, Denies headache(s), Denies nasal congestion, Denies nasal discharge and Denies neck pain Cardiovascular: Cardiovascular: Reports no additional cardiovascular complaints, Denies chest pain, Denies leg edema and Denies dyspnea Respiratory: Respiratory: Reports no additional respiratory complaints, Denies cough and Denies dyspnea Gastrointestinal: Gastrointestinal: Reports no additional gastrointestinal complaints, Denies abdominal pain, Denies diarrhea, Denies nausea and Denies vomiting Genitourinary: Genitourinary: Denies urinary incontinence Musculoskeletal: Musculoskeletal: Reports no additional musculoskeletal complaints, Denies back pain, Denies arthralgias, Denies joint swelling, Denies neck pain, Denies numbness and Denies tingling Integumentary/Breasts: Skin/Breast: Reports system reviewed and no additional complaints, except as docu and Denies rash Neurologic: Reports system reviewed and no additional complaints, except as documented, Denies Abnormal speech present, Denies dizziness, Denies headache(s), Denies numbness, Denies tingling and Denies weakness PMFSH Past Medical History Attestation statement: The following information was validated with the patient. Source: old records reviewed and nursing notes reviewed Medical History Asthma Social History Social History Household Members: Other Household Members Other:: Mom Housing: House Do you presently have visiting nurse or other home services: No Alcohol intake: unknown Patient Tobacco Use Status: Current someday Tobacco user Tobacco use type: Cigarette e-Cigarette/Vaping Use: Currently Using Substance Use Type: Opiates Advance Directives: No Advance Directives Information Provided: Yes Physical Exam Vital Signs: Vital Signs: Last Vital Signs Temp 98.7 F 09/04/22 15:40 Pulse 112 H 09/04/22 15:40 Resp 20 09/04/22 14:09 BP 108/54 L 09/04/22 15:40 Pulse Ox 95 09/04/22 15:40 O2 Del Method 09/04/22 15:40 BMI result Body Mass Index 28.0 Const: General: cooperative, healthy appearing, comfortable and no acute distress Orientation/consciousness: patient oriented x3 Limitations: no limitations HEENT: Head: Yes normal to inspection Ears: hearing grossly normal bilaterally General nose exam: Normal external nose present and Other nasal findings present (Nasal discharge) Face and sinus: Yes normal facial exam Mouth: Normal oral and palatal mucosa present Throat: Yes posterior oropharynx normal Eyes: General: appearance normal, both eyes and all related structures Pupils: Equal, round and reactive pupils present Neck: Neck: Yes normal visual inspection Chest: Chest palpation & inspection: normal inspection of the chest Resp: Other: Wheezing throughout Effort & Inspection: normal respiratory effort Cardio: Rate: regular rate Rhythm: regular rhythm Peripheral pulses: Peripheral pulses 2+ throughout GI: Inspection: Yes normal to inspection Palpation (GI): Soft to palpation and nontender Auscultation: normal bowel sounds Back/Spine/Pelvis: Thoracic/Lumbar Spine: thoracic and lumbar spine normal to inspection Skin: General skin exam: no rashes or lesions noted Neuro: General: patient oriented x3, no focal motor deficits and normal sensation to monofilament Cranial nerves: Yes Equal, round and reactive pupils present Cognition (Neuro): normal cognition Speech: No Abnormal speech present Gait exam (Neuro): Normal gait present Motor exam (neuro): 5/5 motor strength present throughout Extrem: General: Yes normal to inspection, Yes no pedal edema and Yes no calf tenderness Course Course Course Narrative: 1420-x-ray concerning for interstitial pneumonitis. Likely secondary to aspiration from multiple recent overdoses. At this time infection suspected. Labs including blood cultures and lactic acid ordered. Antibiotics ordered. Anticipate admission Reevaluation(s) Reevaluation #1: 1530-labs show mild rhabdomyolysis. Elevated troponin which is likely secondary to rhabdomyolysis and not from ACS. EKG shows no ischemic changes. No reports of chest pain. Patient will be admitted to the hospital for further evaluation. I spoke to the hospitalist who accepted admission. Medications Administered Generic Name Dose Route Start Last Admin Trade Name Freq PRN Reason Stop Dose Admin Sodium Chloride 1,000 mls @ 999 mls/hr 09/04/22 15:45 09/04/22 15:56 Ns IVCONT 09/04/22 17:45 999 mls/hr .Q1H1M DIAMOND Administration Discontinued Medications Generic Name Dose Route Start Last Admin Trade Name Freq PRN Reason Stop Dose Admin Albuterol Sulfate 2.5 mg/ 0 mg 09/04/22 13:57 09/04/22 14:08 Ipratropium [place] 0.5 mg INHALE 09/04/22 13:58 1 each ONCE ONE Administration Cefepime HCl 2 gm/ Sodium 50 mls @ 100 mls/hr 09/04/22 14:20 09/04/22 15:25 Chloride IV 09/04/22 14:49 Infused ONCE ONE Infusion Vancomycin HCl 2,000 mg in 520 mls @ 260 mls/hr 09/04/22 14:20 09/04/22 15:26 Vancomycin/Ns IV 09/04/22 16:19 260 mls/hr ONCE ONE Administration Medical Decision Making Medical Decision Making [facility] Narrative: 27-year-old male with history of asthma here after unintentional overdose on Percocet requiring Narcan. This is patient's 2nd visit in 2 days. I did offer strength and conditioning coach and or detox the patient declined this. Patient on arrival is alert. He has nasal discharge, wheezing throughout. Vitals are stable. Will obtain chest x-ray, viral testing. Patient will be given DuoNeb Differential Diagnosis Differential Diagnoses: The differential diagnosis associated with the presentation includes Overdose, aspiration pneumonia Consult Healthcare Provider Management of the patient was discussed with: Hospitalist (Sarahy RODRIGUEZ) Patient with CXR concerning for pneumonitis, mild rhabdomyolysis, Lab Data [facility] Lab Attestation statement: I reviewed the patient's lab results. 09/04/22 14:34 09/04/22 14:34 Labs: Lab Results 09/04/22 09/04/22 09/04/22 Range/Units 14:13 14:34 14:34 WBC 15.9 H (4.8-10.8) X10*3/uL RBC 4.60 (4.60-5.80) X10*6/uL Hgb 13.1 L (14.0-18.0) g/dl Hct 38.3 L (42.0-52.0) % MCV 83.3 (80.0-98.0) fL MCH 28.5 (27.0-33.0) pg MCHC 34.2 (31.0-36.0) g/dl RDW 13.1 (11.0-16.0) % Plt Count 281 (160-400) X10*3/uL MPV 10.3 (9.4-12.4) fL Immature Gran % (Auto) 0.4 (0.0-0.4) % Neut % (Auto) 83.0 H (45-73) % Lymph % (Auto) 6.5 L (20-40) % Knott % (Auto) 8.5 (2-11) % Eos % (Auto) 1.3 (0-4) % Baso % (Auto) 0.3 (0-2) % Lymph # (Auto) 1.0 L (1.2-4.9) X10*3/uL Knott # (Auto) 1.4 H (0.1-1.2) X10*3/uL Eos # (Auto) 0.2 (0.0-0.4) X10*3/uL Baso # (Auto) 0.0 (0.0-0.2) X10*3/uL Abs Immat Gran (auto) 0.06 H (0.00-0.03) X10*3/uL Absolute Neuts (auto) 13.2 H (2.0-8.3) x10*3/uL Absolute Nucleated RBC 0.000 (0.0-0.012) X10*3/uL Nucleated RBC % (auto) 0.0 (0.0-0.2) /100WBC PT (10.0-13.1) SEC INR (0.9-1.1) Sodium 140 (135-145) mmol/L Potassium 3.8 (3.3-5.1) mmol/L Chloride 105 (96-108) mmol/L Carbon Dioxide 24 (22-29) mmol/L Anion Gap 15 (12-20) BUN 13 (9-16) mg/dL Creatinine 0.91 (0.5-1.4) mg/dL Estim Creat Clear Calc 130.2 Estimated GFR > 60 Random Glucose 102 (60-115) mg/dL Lactic Acid (0.5-2.0) mmol/L Calcium 9.1 (8.4-10.2) mg/dL Magnesium 2.0 (1.6-2.6) mg/dL Total Bilirubin 0.4 (0.0-1.0) mg/dL Direct Bilirubin 0.2 (0.0-0.5) mg/dL AST 40 H (5-37) U/L ALT 17 (0-40) U/L Alkaline Phosphatase 88 (39-117) U/L Total Creatine Kinase 1596 H (38-174) U/L Troponin I High Sens (<3.5-35.0) ng/L B-Natriuretic Peptide (<100) pg/mL Total Protein 6.5 (6.5-8.0) g/dL Albumin 4.0 (3.5-5.0) g/dL Urine Opiates Screen (Not Detect) Urine Fentanyl Screen (Not Detect) Ur Barbiturates Screen (Not Detect) Ur Phencyclidine Scrn (Not Detect) Ur Amphetamines Screen (Not Detect) U Benzodiazepines Scrn (Not Detect) Urine Cocaine Screen (Not Detect) U Marijuana (THC) Screen (Not Detect) Influenza Type A (PCR) NEGATIVE (Negative) Influenza Type B (PCR) NEGATIVE (Negative) RSV RNA Qual (PCR) POSITIVE A (Negative) SARS-CoV-2 RNA (RT-PCR) NEGATIVE (Negative) 09/04/22 09/04/22 09/04/22 Range/Units 14:34 14:34 14:34 WBC (4.8-10.8) X10*3/uL RBC (4.60-5.80) X10*6/uL Hgb (14.0-18.0) g/dl Hct (42.0-52.0) % MCV (80.0-98.0) fL MCH (27.0-33.0) pg MCHC (31.0-36.0) g/dl RDW (11.0-16.0) % Plt Count (160-400) X10*3/uL MPV (9.4-12.4) fL Immature Gran % (Auto) (0.0-0.4) % Neut % (Auto) (45-73) % Lymph % (Auto) (20-40) % Knott % (Auto) (2-11) % Eos % (Auto) (0-4) % Baso % (Auto) (0-2) % Lymph # (Auto) (1.2-4.9) X10*3/uL Knott # (Auto) (0.1-1.2) X10*3/uL Eos # (Auto) (0.0-0.4) X10*3/uL Baso # (Auto) (0.0-0.2) X10*3/uL Abs Immat Gran (auto) (0.00-0.03) X10*3/uL Absolute Neuts (auto) (2.0-8.3) x10*3/uL Absolute Nucleated RBC (0.0-0.012) X10*3/uL Nucleated RBC % (auto) (0.0-0.2) /100WBC PT 14.0 H (10.0-13.1) SEC INR 1.2 H (0.9-1.1) Sodium (135-145) mmol/L Potassium (3.3-5.1) mmol/L Chloride (96-108) mmol/L Carbon Dioxide (22-29) mmol/L Anion Gap (12-20) BUN (9-16) mg/dL Creatinine (0.5-1.4) mg/dL Estim Creat Clear Calc Estimated GFR Random Glucose (60-115) mg/dL Lactic Acid 1.6 (0.5-2.0) mmol/L Calcium (8.4-10.2) mg/dL Magnesium (1.6-2.6) mg/dL Total Bilirubin (0.0-1.0) mg/dL Direct Bilirubin (0.0-0.5) mg/dL AST (5-37) U/L ALT (0-40) U/L Alkaline Phosphatase (39-117) U/L Total Creatine Kinase (38-174) U/L Troponin I High Sens 65.0 H (<3.5-35.0) ng/L B-Natriuretic Peptide (<100) pg/mL Total Protein (6.5-8.0) g/dL Albumin (3.5-5.0) g/dL Urine Opiates Screen (Not Detect) Urine Fentanyl Screen (Not Detect) Ur Barbiturates Screen (Not Detect) Ur Phencyclidine Scrn (Not Detect) Ur Amphetamines Screen (Not Detect) U Benzodiazepines Scrn (Not Detect) Urine Cocaine Screen (Not Detect) U Marijuana (THC) Screen (Not Detect) Influenza Type A (PCR) (Negative) Influenza Type B (PCR) (Negative) RSV RNA Qual (PCR) (Negative) SARS-CoV-2 RNA (RT-PCR) (Negative) 09/04/22 09/04/22 Range/Units 14:34 14:46 WBC (4.8-10.8) X10*3/uL RBC (4.60-5.80) X10*6/uL Hgb (14.0-18.0) g/dl Hct (42.0-52.0) % MCV (80.0-98.0) fL MCH (27.0-33.0) pg MCHC (31.0-36.0) g/dl RDW (11.0-16.0) % Plt Count (160-400) X10*3/uL MPV (9.4-12.4) fL Immature Gran % (Auto) (0.0-0.4) % Neut % (Auto) (45-73) % Lymph % (Auto) (20-40) % Knott % (Auto) (2-11) % Eos % (Auto) (0-4) % Baso % (Auto) (0-2) % Lymph # (Auto) (1.2-4.9) X10*3/uL Knott # (Auto) (0.1-1.2) X10*3/uL Eos # (Auto) (0.0-0.4) X10*3/uL Baso # (Auto) (0.0-0.2) X10*3/uL Abs Immat Gran (auto) (0.00-0.03) X10*3/uL Absolute Neuts (auto) (2.0-8.3) x10*3/uL Absolute Nucleated RBC (0.0-0.012) X10*3/uL Nucleated RBC % (auto) (0.0-0.2) /100WBC PT (10.0-13.1) SEC INR (0.9-1.1) Sodium (135-145) mmol/L Potassium (3.3-5.1) mmol/L Chloride (96-108) mmol/L Carbon Dioxide (22-29) mmol/L Anion Gap (12-20) BUN (9-16) mg/dL Creatinine (0.5-1.4) mg/dL Estim Creat Clear Calc Estimated GFR Random Glucose (60-115) mg/dL Lactic Acid (0.5-2.0) mmol/L Calcium (8.4-10.2) mg/dL Magnesium (1.6-2.6) mg/dL Total Bilirubin (0.0-1.0) mg/dL Direct Bilirubin (0.0-0.5) mg/dL AST (5-37) U/L ALT (0-40) U/L Alkaline Phosphatase (39-117) U/L Total Creatine Kinase (38-174) U/L Troponin I High Sens (<3.5-35.0) ng/L B-Natriuretic Peptide 48 (<100) pg/mL Total Protein (6.5-8.0) g/dL Albumin (3.5-5.0) g/dL Urine Opiates Screen Not Detected (Not Detect) Urine Fentanyl Screen POSITIVE H (Not Detect) Ur Barbiturates Screen Not Detected (Not Detect) Ur Phencyclidine Scrn Not Detected (Not Detect) Ur Amphetamines Screen Not Detected (Not Detect) U Benzodiazepines Scrn Not Detected (Not Detect) Urine Cocaine Screen Not Detected (Not Detect) U Marijuana (THC) Screen POSITIVE H (Not Detect) Influenza Type A (PCR) (Negative) Influenza Type B (PCR) (Negative) RSV RNA Qual (PCR) (Negative) SARS-CoV-2 RNA (RT-PCR) (Negative) Independent Interpretation I performed an independent interpretation of an: EKG (Independently reviewed the EKG which shows sinus tachycardia with rate of 106, normal DE, QRS normal QT) and Plain X-Ray (I independently reviewed the x-ray which is concerning for pneumonitis) Radiology Impression Discussion of test interpretation with radiology: I have reviewed the radiologist's reading. Radiologist Impression: [place] [id number] XRay Report Signed Patient: Len Cheek MR#: [id number] : 1995 Acct:[id number] Age/Sex: 27 / M ADM Date: 09/04/22 Loc: .ED Attending Dr: Ordering Physician: Emelyn Zimmerman NP Date of Service: 09/04/22 Procedure(s): XR chest 2V Accession Number(s): [id number] cc: Emelyn Zimmerman NP~ EXAMINATION: XR CHEST CLINICAL INFORMATION: Weakness, possible overdose, cough COMPARISON: 07/07/2022 TECHNIQUE: 2 views of the chest were obtained. FINDINGS: Worsened coarse interstitial prominence. No focal consolidation or mass. No pleural effusion or pneumothorax. Normal heart size. Regional skeleton intact. XR/XR chest 2V IMPRESSION: Worsened coarse interstitial prominence. The appearance is nonspecific and could reflect pulmonary edema, ARDS, bronchitis, interstitial pneumonitis, etc. Independent Historian Clinical information obtained from an independent historian. History obtained from or confirmed by: EMS Discharge Plan Discharge Clinical Impression: Respiratory syncytial virus (RSV) infection, Drug overdose, Rhabdomyolysis, Pneumonitis, Leukocytosis Patient Disposition: Admitted As Inpatient Prescriptions: No Action albuterol sulfate [Ventolin HFA] 90 mcg/actuation Hfa Aerosol Inhaler 1 puff inhalation RQ4H PRN (Reason: ASTHMA) Qty: 8.5 0RF fluticasone furoate-vilanterol [Breo Ellipta] 100-25 mcg/dose Blister With Device 1 ea inhalation RDAILY Qty: 1 0RF albuterol sulfate 2.5 mg /3 mL (0.083 %) solution for nebulization 3 ml inhalation Q4-6H PRN (Reason: wheezing) Interventions: Vance-Suicide Risk Severity Scale Last Done: 09/04/22 13:31
--- NOTE | 2022-09-04 14:19 | ECG_ITS ---
Test Reason : OVERDOSE Blood Pressure : / mmHG Vent. Rate : 106 BPM Atrial Rate : 106 BPM P-R Int : 140 ms QRS Dur : 084 ms QT Int : 338 ms P-R-T Axes : 070 076 015 degrees QTc Int : 448 ms Sinus tachycardia Otherwise normal ECG When compared with ECG of 03-SEP-2022 05:29, No significant change was found Referred By: Emelyn Zimmerman Electronically Signed By:CHARO AWAN MD
[2022-09-04 14:41] LABS: Basophils Percent Auto 0.3 % (0-2); Eosinophils Absolute Auto 0.2 X10*3/uL (0.0-0.4); Eosinophils Percent Auto 1.3 % (0-4); Hematocrit 38.3 % (42.0-52.0); Hemoglobin 13.1 g/dl (14.0-18.0); Imm Gran Abs Auto 0.06 X10*3/uL (0.00-0.03); Imm Gran Pct Auto 0.4 % (0.0-0.4); Lymphocytes Percent Auto 6.5 % (20-40); MANUAL DIFF FLAG NO; Mean Corpuscular HGB Conc 34.2 g/dl (31.0-36.0); Mean Corpuscular Hemoglobin 28.5 pg (27.0-33.0); Mean Corpuscular Volume 83.3 fL (80.0-98.0); Mean Platelet Volume 10.3 fL (9.4-12.4); Monocytes Absolute Auto 1.4 X10*3/uL (0.1-1.2); Monocytes Percent Auto 8.5 % (2-11); Neutrophils Absolute Auto 13.2 x10*3/uL (2.0-8.3); Platelet Count 281 X10*3/uL (160-400); Red Cell Distribution Width 13.1 % (11.0-16.0); White Blood Count 15.9 X10*3/uL (4.8-10.8)
[2022-09-04 14:48] LABS: INTERNATIONAL NORM RATIO 1.2 (0.9-1.1)
[2022-09-04] MEDS: cefEPime HCl 2 GM in 0.9 % Sodium Chloride 50 ML IV (14:49)
--- NOTE | 2022-09-04 14:52 | PHA.MEDREC ---
Pharmacy Consult ? Medication Reconciliation Pharmacy has completed the medication reconciliation.
[2022-09-04 14:56] LABS: Lactic Acid 1.6 mmol/L (0.5-2.0)
[2022-09-04 15:00] LABS: Influenza A PCR NEGATIVE (Negative); Influenza B PCR NEGATIVE (Negative); Resp Syncy Virus RNA Qual PCR POSITIVE (Negative); SARS COV2 PCR INHOUSE NEGATIVE (Negative)
[2022-09-04 15:06] LABS: B Type Natriuretic Peptide 48 pg/mL (<100)
[2022-09-04 15:07] LABS: Amphetamine Screen Urine Not Detected (Not Detect); Barbiturates, Urine Not Detected (Not Detect); Benzodiazepines Screen Urine Not Detected (Not Detect); Cannabinoid Screen Urine POSITIVE (Not Detect); Cocaine Screen Urine Not Detected (Not Detect); Fentanyl, urine POSITIVE (Not Detect); Opiate Screen Urine Not Detected (Not Detect); Phencyclidine Screen Urine Not Detected (Not Detect)
[2022-09-04 15:14] LABS: Alanine Aminotransferase 17 U/L (0-40); Alkaline Phosphatase 88 U/L (39-117); Anion Gap 15 (12-20); Aspartate Amino Transferase 40 U/L (5-37); Bilirubin Direct 0.2 mg/dL (0.0-0.5); Bilirubin Total 0.4 mg/dL (0.0-1.0); Blood Urea Nitrogen 13 mg/dL (9-16); Calcium 9.1 mg/dL (8.4-10.2); Carbon Dioxide 24 mmol/L (22-29); Chloride 105 mmol/L (96-108); Creatinine Clr Calc Pharmacy 130.2; Estimated Glomerular Filt Rate > 60; Glucose Random 102 mg/dL (60-115); Potassium 3.8 mmol/L (3.3-5.1); Sodium 140 mmol/L (135-145); Total Protein 6.5 g/dL (6.5-8.0)
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
--- NOTE | 2022-09-04 15:40 | PM.IMHP ---
History of Present Illness Date of Service: 09/04/22 <JENNIFER Singh - Last Filed: 09/04/22 17:12> Attending physician on admission: Festus Cain <JENNIFER Singh - Last Filed: 09/04/22 17:12> Chief Complaint: Accidental overdose <JENNIFER Singh - Last Filed: 09/04/22 17:12> Pt is a 27-year-old male with a PMH significant for?polysubstance abuse, asthma, who presents to the ED after an unintentional overdose of Percocet. EMS states patient was found unresponsive on the ground outside of his mother's house, given 4 mg of intranasal Narcan with good effect. Patient was unresponsive for an unknown period of time. Patient claims he took 3 Percocet and denies taking any other substance. Patient purchases Percocet from his friend and uses recreationally. Of note patient presented yesterday with similar complaints of an unintended overdose on Percocet, also given Narcan. Patient appears somnolent and intoxicated, but arousable. Denies any acute concerns. No SOB, difficulty breathing. Denies chest pain/pressure, palpitations. No headache, fever, chills, nausea, vomiting, abdominal pain. Denies any muscular pain or weakness. In the ED the patient was tachycardic. Labs were significant for leukocytosis of 15.9, elevated creatinine kinase of 1569, elevated troponin of 65.0. Tox screen positive for fentanyl and marijuana. Patient tested positive for RSV. CXR showed worsening coarse interstitial prominence since chest x-ray on 07/07/2022, nonspecific findings but concerning for pneumonitis. EKG showed sinus tachycardia without evidence of acute ischemia. Pt was treated with IVF, vanco and cefepime, DuoNebs.Pt will be admitted to the hospital for treatment of rhabdomyolysis, pneumonitis, and RSV. <JENNIFER Singh - Last Filed: 09/04/22 17:12> Review of Systems Review of Systems: Unresponsiveness due to Percocet overdose Denies shortness of breath, difficulty breathing, cough No chest pain/pressure, palpitations Denies fever, chills, nausea, vomiting, abdominal pain No muscle pain or weakness <JENNIFER Singh - Last Filed: 09/04/22 17:12> FOR[facility]LY [facility], [facility] Medical History: Medical History Asthma <JENNIFER Singh - Last Filed: 09/04/22 17:12> Social History: Social History Household Members: Other Household Members Other:: Mom Housing: House Do you presently have visiting nurse or other home services: No Alcohol intake: unknown Patient Tobacco Use Status: Current someday Tobacco user Tobacco use type: Cigarette e-Cigarette/Vaping Use: Currently Using Substance Use Type: Opiates Advance Directives: No Advance Directives Information Provided: Yes <JENNIFER Singh - Last Filed: 09/04/22 17:12> Meds Allergies/Adverse reactions: Allergies Allergy/AdvReac Type Severity Reaction Status Date / Time seafood Allergy Severe Anaphylaxis Verified 09/04/22 13:27 Penicillins [PENICILLINS] Allergy Intermediate RASH Verified 09/04/22 13:27 <JENNIFER Singh - Last Filed: 09/04/22 17:12> Active Medications: Current Medications Vancomycin HCl (Vancomycin/Ns) 2,000 mg in 520 mls @ 260 mls/hr IV ONCE ONE Stop: 09/04/22 16:19 Last Admin: 09/04/22 15:26 Dose: 260 mls/hr Sodium Chloride (Ns) 1,000 mls @ 999 mls/hr IVCONT .Q1H1M DIAMOND Stop: 09/04/22 17:45 Pharmacy Consult (Consult Rx Perform Med Rec) 1 each MISCELLANE ONCE PRN PRN Reason: Consult order <JENNIFER Singh - Last Filed: 09/04/22 17:12> Home medications: Home Medications Medication Instructions Recorded Confirmed Last Taken Type albuterol sulfate 2.5 mg/3 mL 3 ml inhalation Q4-6H PRN wheezing 09/04/22 09/04/22 Unknown History (0.083 %) solution for nebulization <JENNIFER Singh - Last Filed: 09/04/22 17:12> Physical Exam Vital Signs and Narrative: Vital Signs: Last Vital Signs Temp 98.5 F 09/04/22 13:27 Pulse 110 H 09/04/22 13:27 Resp 20 09/04/22 14:09 BP 130/69 09/04/22 13:27 Pulse Ox 96 09/04/22 13:27 O2 Del Method 09/04/22 13:27 BMI result Body Mass Index 28.0 <JENNIFER Snigh - Last Filed: 09/04/22 17:12> Constitutional: Somnolent but arousable, cooperative, in no acute distress. Mental Status: Oriented to person, place and time. Eyes: Pupils are equal, round, and reactive to light. Ear, Nose, and Throat: Oropharynx clear, mucous membranes moist. Ears and nose without deformities. Trachea midline. Respiratory: Mild rhonchi in lower right lung field. Cardiovascular: S1, S2 regular. No murmurs, rubs, or gallops. Gastrointestinal: Abdomen soft, non-tender, non-distended. Normal bowel sounds. Neurologic: Cranial nerves II-XI are grossly intact. No focal neurological deficits. Moves all extremities spontaneously. Skin: No rashes or lesions noted. Musculoskeletal: No cyanosis or clubbing. Extremities: No edema. Psychiatric: Appears intoxicated. <JENNIFER Singh - Last Filed: 09/04/22 17:12> Results Labs CBC and Chem 7: 09/04/22 14:34 09/04/22 14:34 <JENNIFER Singh - Last Filed: 09/04/22 17:12> Labs: Laboratory Results - last 24 hr 09/04/22 09/04/22 09/04/22 14:13 14:34 14:34 MCV 83.3 MCH 28.5 MCHC 34.2 RDW 13.1 Plt Count 281 MPV 10.3 Immature Gran % (Auto) 0.4 Neut % (Auto) 83.0 H Lymph % (Auto) 6.5 L [place] % (Auto) 8.5 Eos % (Auto) 1.3 Baso % (Auto) 0.3 Lymph # (Auto) 1.0 L [place] # (Auto) 1.4 H Eos # (Auto) 0.2 Baso # (Auto) 0.0 Abs Immat Gran (auto) 0.06 H Absolute Neuts (auto) 13.2 H Absolute Nucleated RBC 0.000 Nucleated RBC % (auto) 0.0 PT INR Anion Gap 15 Estim Creat Clear Calc 130.2 Estimated GFR > 60 Random Glucose 102 Lactic Acid Calcium 9.1 Magnesium 2.0 Total Bilirubin 0.4 Direct Bilirubin 0.2 AST 40 H ALT 17 Alkaline Phosphatase 88 Total Creatine Kinase 1596 H Troponin I High Sens B-Natriuretic Peptide Total Protein 6.5 Albumin 4.0 Urine Opiates Screen Urine Fentanyl Screen Ur Barbiturates Screen Ur Phencyclidine Scrn Ur Amphetamines Screen U Benzodiazepines Scrn Urine Cocaine Screen U Marijuana (THC) Screen Influenza Type A (PCR) NEGATIVE Influenza Type B (PCR) NEGATIVE RSV RNA Qual (PCR) POSITIVE A SARS-CoV-2 RNA (RT-PCR) NEGATIVE 09/04/22 09/04/22 09/04/22 14:34 14:34 14:34 MCV MCH MCHC RDW Plt Count MPV Immature Gran % (Auto) Neut % (Auto) Lymph % (Auto) [place] % (Auto) Eos % (Auto) Baso % (Auto) Lymph # (Auto) [place] # (Auto) Eos # (Auto) Baso # (Auto) Abs Immat Gran (auto) Absolute Neuts (auto) Absolute Nucleated RBC Nucleated RBC % (auto) PT 14.0 H INR 1.2 H Anion Gap Estim Creat Clear Calc Estimated GFR Random Glucose Lactic Acid 1.6 Calcium Magnesium Total Bilirubin Direct Bilirubin AST ALT Alkaline Phosphatase Total Creatine Kinase Troponin I High Sens 65.0 H B-Natriuretic Peptide Total Protein Albumin Urine Opiates Screen Urine Fentanyl Screen Ur Barbiturates Screen Ur Phencyclidine Scrn Ur Amphetamines Screen U Benzodiazepines Scrn Urine Cocaine Screen U Marijuana (THC) Screen Influenza Type A (PCR) Influenza Type B (PCR) RSV RNA Qual (PCR) SARS-CoV-2 RNA (RT-PCR) 09/04/22 09/04/22 14:34 14:46 MCV MCH MCHC RDW Plt Count MPV Immature Gran % (Auto) Neut % (Auto) Lymph % (Auto) [place] % (Auto) Eos % (Auto) Baso % (Auto) Lymph # (Auto) [place] # (Auto) Eos # (Auto) Baso # (Auto) Abs Immat Gran (auto) Absolute Neuts (auto) Absolute Nucleated RBC Nucleated RBC % (auto) PT INR Anion Gap Estim Creat Clear Calc Estimated GFR Random Glucose Lactic Acid Calcium Magnesium Total Bilirubin Direct Bilirubin AST ALT Alkaline Phosphatase Total Creatine Kinase Troponin I High Sens B-Natriuretic Peptide 48 Total Protein Albumin Urine Opiates Screen Not Detected Urine Fentanyl Screen POSITIVE H Ur Barbiturates Screen Not Detected Ur Phencyclidine Scrn Not Detected Ur Amphetamines Screen Not Detected U Benzodiazepines Scrn Not Detected Urine Cocaine Screen Not Detected U Marijuana (THC) Screen POSITIVE H Influenza Type A (PCR) Influenza Type B (PCR) RSV RNA Qual (PCR) SARS-CoV-2 RNA (RT-PCR) <JENNIFER Singh - Last Filed: 09/04/22 17:12> Imaging Radiologist's Impressions: Impressions Chest X-Ray 09/04/22 14:05 IMPRESSION: Worsened coarse interstitial prominence. The appearance is nonspecific and could reflect pulmonary edema, ARDS, bronchitis, interstitial pneumonitis, etc. <JENNIFER Snigh - Last Filed: 09/04/22 17:12> Assessment and Plan (1) Respiratory syncytial virus (RSV) infection: Status: Acute <JENNIFER Singh - Last Filed: 09/04/22 17:12> (2) Drug overdose: Status: Acute <JENNIFER Singh - Last Filed: 09/04/22 17:12> (3) Rhabdomyolysis: Status: Acute <JENNIFER Singh - Last Filed: 09/04/22 17:12> (4) Pneumonitis: Status: Acute <JENNIFER Singh - Last Filed: 09/04/22 17:12> Pt is a 27-year-old male with a PMH significant for?polysubstance abuse, asthma, who presents to the ED after an unintentional overdose of Percocet, revived with Narcan by EMS. Patient will be admitted the hospital for treatment of rhabdomyolysis, pneumonitis, and RSV with IV steroids and fluids. Pneumonitis Chest x-ray shows worsening coarse interstitial prominence since yesterday with concern for pneumonitis Likely secondary to aspiration No current concern for bacterial infection, hold antibiotics for now DuoNebs q4 while awake Solu-Medrol RSV Pt not complaining of SOB or difficulty breathing Satting at 95% on RA Treat as above Rhabdomyolysis Patient has no acute complaints of muscle pain or weakness Creatinine kinase elevated at 1596 Creatinine 0.91 IVF Elevated troponin Troponin elevated at 65.0 Most likely due to demand ischemia, EKG showed sinus tachycardia with no evidence of acute ischemia Repeat troponin Polysubstance use disorder Addiction medicine consult Monitor for withdrawal Asthma Does not appear to be in acute exacerbation Receiving DuoNebs and steroids Continue albuterol rescue inhaler prn Full Code Attending:?Dr. Cain DVT Prophylaxis: Lovenox Pt will require a hospitalization of at least two nights for treatment of?pneumonitis, RSV, and rhabdomyolysis with IV steroids and IVF. <JENNIFER Singh - Last Filed: 09/04/22 17:12> Pt is a 27-year-old male with a PMH significant for?polysubstance abuse, asthma, who presents to the ED after an unintentional overdose of Percocet, revived with Narcan by EMS. Patient will be admitted the hospital for treatment of rhabdomyolysis, pneumonitis, and RSV with IV steroids and fluids. Opioid Overdose in Polysubstance use disorder recovered back to baseline Positive for Fentanyl in urine Addiction medicine consult Monitor for withdrawal Pneumonitis Chest x-ray shows worsening coarse interstitial prominence since yesterday with concern for pneumonitis Likely secondary to aspiration No current concern for bacterial infection, hold antibiotics for now DuoNebs q4 while awake Solu-Medrol RSV Pt not complaining of SOB or difficulty breathing Satting at 95% on RA Treat as above Rhabdomyolysis Patient has no acute complaints of muscle pain or weakness Creatinine kinase elevated at 1596 Creatinine 0.91 IVF Elevated troponin Troponin elevated at 65.0 Most likely due to demand ischemia, EKG showed sinus tachycardia with no evidence of acute ischemia Repeat troponin Asthma Does not appear to be in acute exacerbation Receiving DuoNebs and steroids Continue albuterol rescue inhaler prn Full Code Attending:?Dr. Cain DVT Prophylaxis: Lovenox Pt will require a hospitalization of at least two nights for treatment of?pneumonitis, RSV, and rhabdomyolysis with IV steroids and IVF. <Festus Cain MD - Last Filed: 09/04/22 18:27> Time Spent With Patient Time: Total time managing care of this patient today ____ minutes. <JENNIFER Singh - Last Filed: 09/04/22 17:12> Quality Stroke Does the patient have a stroke diagnosis?: No <JENNIFER Singh - Last Filed: 09/04/22 17:12> VTE Prior VTE?: No <JENNIFER Singh - Last Filed: 09/04/22 17:12> VTE Risk Level:: Medical - moderate - high <JENNIFER Singh - Last Filed: 09/04/22 17:12> VTE Device Contraindication: Treatment Not Indicated <JENNIFER Singh - Last Filed: 09/04/22 17:12> VTE Drug Contraindication: N/A - Med Ordered <JENNIFER Singh - Last Filed: 09/04/22 17:12>
[2022-09-04] MEDS: 0.9 % Sodium Chloride 1,000 ML 999 ML IVCONT ×2 (15:56→17:39)
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
[2022-09-04] MEDS: methylPREDNISolone Sod Succ 125 MG/2 ML VIAL 60 MG IVPUSH (19:11)
--- NOTE | 2022-09-04 19:22 | PC.NURSE ---
PT A&Ox4, denies any pain. Ambulated to BR independently. Denies SI/HI. IV patent, meds given as documented.
[2022-09-04 19:46] LABS: Troponin-I High Sensitivity 62.7 ng/L (<3.5-35.0)
--- NOTE | 2022-09-04 21:45 | PC.NURSE ---
LR scheduled for 0 not given d/t PT having vanco and NS running. LR stated. Will call pharmacy to update scheduled time.
[2022-09-04] MEDS: Lactated Ringers 1,000 ML 100 ML IVCONT (21:47)
--- NOTE | 2022-09-05 00:49 | PC.NURSE ---
PT laying on stretcher watching TV. Tolerating PO fluids, sandwich given x2. Ambulating independently to BR. IV fluids ruining.
[2022-09-05] MEDS: methylPREDNISolone Sod Succ 125 MG/2 ML VIAL 60 MG IVPUSH ×2 (01:56→10:38)
[2022-09-05 01:57] VITALS: BP 132/65; PULSE 86; RESP 16; O2SAT 99
[2022-09-05 05:49] VITALS: BP 145/70; PULSE 71; RESP 18; TEMP 36.8; O2SAT 98
[2022-09-05 06:30] LABS: Hematocrit 39.3 % (42.0-52.0); Hemoglobin 13.4 g/dl (14.0-18.0); Mean Corpuscular HGB Conc 34.1 g/dl (31.0-36.0); Mean Corpuscular Hemoglobin 28.9 pg (27.0-33.0); Mean Corpuscular Volume 84.9 fL (80.0-98.0); Mean Platelet Volume 10.8 fL (9.4-12.4); Platelet Count 291 X10*3/uL (160-400); Red Blood Count 4.63 X10*6/uL (4.60-5.80); Red Cell Distribution Width 13.1 % (11.0-16.0)
[2022-09-05 07:08] VITALS: PULSE 71; RESP 18; O2SAT 100
--- NOTE | 2022-09-05 08:14 | P.PNIM_ITS ---
Subjective Subjective Date of Service: 09/05/22 Interval History: Pneumonitis, rhabdomyolysis, drug use. Review of Systems Denies any shortness of breath or chest pain or nausea vomiting or diarrhea or abdominal pain So far is not saying muscle pain but accept some soreness. Physical Exam Vital Signs: Vital Signs: Last Vital Signs Temp 98.2 F 09/05/22 05:49 Pulse 71 09/05/22 07:08 Resp 18 09/05/22 07:08 BP 145/70 H 09/05/22 05:49 Pulse Ox 98 09/05/22 05:49 O2 Del Method 09/05/22 05:49 BMI result Body Mass Index 28.0 Appearance: Alert.? Oriented X3.? not in distress,anxious.? cvs: rrr, [id number] res: air entry fair ,diminshed at bases. abd: no rebound or guarding ,nt, bs present. ext pulses present , no cyanosis . neuro: axo3 , nonfocal. Objective Data Active Medications Acetaminophen (Acetaminophen 325 Mg Tablet) 650 mg PO Q6H PRN PRN Reason: Pain, Mild (Pain Scale 1-3) Albuterol Sulfate (Albuterol Sulfate (0.083%) 2.5 Mg/3 Ml Vial.Neb) 2.5 mg INHALE Q4H PRN PRN Reason: wheezing Albuterol Sulfate 2.5 mg/ (Ipratropium [place] 0.5 mg) 0 mg INHALE RQ4H WHILE AWAKE [facility] Last Admin: 09/05/22 07:07 Dose: 2.5 each Documented By: ANDRZEJ Docusate Sodium (Docusate Sodium 100 Mg Capsule) 100 mg PO DAILY PRN PRN Reason: Constipation Enoxaparin Sodium (Enoxaparin Sodium 40 Mg/0.4 Ml Syringe) 40 mg SUBCUT Q24H [facility] Last Admin: 09/04/22 19:09 Dose: Not Given Documented By: SERRANX Non-Admin Reason: Patient Refused Fluticasone/Vilanterol (Fluticasone/Vilanterol 100/25 Blst.W.Dev) 1 puff INHALE RDAILY [facility] Last Admin: 09/05/22 07:09 Dose: Not Given Documented By: ANDRZEJ Non-Admin Reason: Med Not Available Lactated Ringer's (Lr) 1,000 mls @ 100 mls/hr IVCONT .Q10H [facility] Methylprednisolone Sodium Succinate (Methylprednisolone Sod Succ 125 Mg/2 Ml Vial) 60 mg IVPUSH Q8H [facility] Last Admin: 09/05/22 01:56 Dose: 60 mg Documented By: LISA Ondansetron HCl (Ondansetron Hcl 4 Mg/2 Ml Vial) 4 mg IVPUSH Q8H PRN PRN Reason: Nausea and Vomiting Pharmacy Consult (Consult Rx Perform Med Rec) 1 each MISCELLANE ONCE PRN PRN Reason: Consult order Sodium Chloride (0.9 % Sodium Chloride Flush 3 Ml Syringe) 3 ml IVFLUSH QSHIFT [facility] Last Admin: 09/05/22 00:12 Dose: Not Given Documented By: LISA Non-Admin Reason: IV Running Labs 09/05/22 06:03 09/04/22 14:34 Labs: Laboratory Results - last 24 hr 09/04/22 09/04/22 09/04/22 14:13 14:34 14:34 MCV 83.3 MCH 28.5 MCHC 34.2 RDW 13.1 Plt Count 281 MPV 10.3 Immature Gran % (Auto) 0.4 Neut % (Auto) 83.0 H Lymph % (Auto) 6.5 L [place] % (Auto) 8.5 Eos % (Auto) 1.3 Baso % (Auto) 0.3 Lymph # (Auto) 1.0 L [place] # (Auto) 1.4 H Eos # (Auto) 0.2 Baso # (Auto) 0.0 Abs Immat Gran (auto) 0.06 H Absolute Neuts (auto) 13.2 H Absolute Nucleated RBC 0.000 Nucleated RBC % (auto) 0.0 PT INR Anion Gap 15 Estim Creat Clear Calc 130.2 Estimated GFR > 60 Random Glucose 102 Lactic Acid Calcium 9.1 Magnesium 2.0 Total Bilirubin 0.4 Direct Bilirubin 0.2 AST 40 H ALT 17 Alkaline Phosphatase 88 Total Creatine Kinase 1596 H Troponin I High Sens B-Natriuretic Peptide Total Protein 6.5 Albumin 4.0 Urine Opiates Screen Urine Fentanyl Screen Ur Barbiturates Screen Ur Phencyclidine Scrn Ur Amphetamines Screen U Benzodiazepines Scrn Urine Cocaine Screen U Marijuana (THC) Screen Influenza Type A (PCR) NEGATIVE Influenza Type B (PCR) NEGATIVE RSV RNA Qual (PCR) POSITIVE A SARS-CoV-2 RNA (RT-PCR) NEGATIVE 09/04/22 09/04/22 09/04/22 14:34 14:34 14:34 MCV MCH MCHC RDW Plt Count MPV Immature Gran % (Auto) Neut % (Auto) Lymph % (Auto) [place] % (Auto) Eos % (Auto) Baso % (Auto) Lymph # (Auto) [place] # (Auto) Eos # (Auto) Baso # (Auto) Abs Immat Gran (auto) Absolute Neuts (auto) Absolute Nucleated RBC Nucleated RBC % (auto) PT 14.0 H INR 1.2 H Anion Gap Estim Creat Clear Calc Estimated GFR Random Glucose Lactic Acid 1.6 Calcium Magnesium Total Bilirubin Direct Bilirubin AST ALT Alkaline Phosphatase Total Creatine Kinase Troponin I High Sens 65.0 H B-Natriuretic Peptide Total Protein Albumin Urine Opiates Screen Urine Fentanyl Screen Ur Barbiturates Screen Ur Phencyclidine Scrn Ur Amphetamines Screen U Benzodiazepines Scrn Urine Cocaine Screen U Marijuana (THC) Screen Influenza Type A (PCR) Influenza Type B (PCR) RSV RNA Qual (PCR) SARS-CoV-2 RNA (RT-PCR) 09/04/22 09/04/22 09/04/22 14:34 14:46 18:45 MCV MCH MCHC RDW Plt Count MPV Immature Gran % (Auto) Neut % (Auto) Lymph % (Auto) [place] % (Auto) Eos % (Auto) Baso % (Auto) Lymph # (Auto) [place] # (Auto) Eos # (Auto) Baso # (Auto) Abs Immat Gran (auto) Absolute Neuts (auto) Absolute Nucleated RBC Nucleated RBC % (auto) PT INR Anion Gap Estim Creat Clear Calc Estimated GFR Random Glucose Lactic Acid Calcium Magnesium Total Bilirubin Direct Bilirubin AST ALT Alkaline Phosphatase Total Creatine Kinase Troponin I High Sens 62.7 H B-Natriuretic Peptide 48 Total Protein Albumin Urine Opiates Screen Not Detected Urine Fentanyl Screen POSITIVE H Ur Barbiturates Screen Not Detected Ur Phencyclidine Scrn Not Detected Ur Amphetamines Screen Not Detected U Benzodiazepines Scrn Not Detected Urine Cocaine Screen Not Detected U Marijuana (THC) Screen POSITIVE H Influenza Type A (PCR) Influenza Type B (PCR) RSV RNA Qual (PCR) SARS-CoV-2 RNA (RT-PCR) 09/05/22 06:03 MCV 84.9 MCH 28.9 MCHC 34.1 RDW 13.1 Plt Count 291 MPV 10.8 Immature Gran % (Auto) Neut % (Auto) Lymph % (Auto) [place] % (Auto) Eos % (Auto) Baso % (Auto) Lymph # (Auto) [place] # (Auto) Eos # (Auto) Baso # (Auto) Abs Immat Gran (auto) Absolute Neuts (auto) Absolute Nucleated RBC 0.000 Nucleated RBC % (auto) 0.0 PT INR Anion Gap Estim Creat Clear Calc Estimated GFR Random Glucose Lactic Acid Calcium Magnesium Total Bilirubin Direct Bilirubin AST ALT Alkaline Phosphatase Total Creatine Kinase Troponin I High Sens B-Natriuretic Peptide Total Protein Albumin Urine Opiates Screen Urine Fentanyl Screen Ur Barbiturates Screen Ur Phencyclidine Scrn Ur Amphetamines Screen U Benzodiazepines Scrn Urine Cocaine Screen U Marijuana (THC) Screen Influenza Type A (PCR) Influenza Type B (PCR) RSV RNA Qual (PCR) SARS-CoV-2 RNA (RT-PCR) Assessment and Plan (1) Opioid use disorder: Status: Acute (2) Respiratory syncytial virus (RSV) infection: Status: Acute (3) Rhabdomyolysis: Status: Acute (4) Pneumonitis: Status: Acute Plan 27-year-old male with a PMH significant for?polysubstance abuse, asthma, who presents to the ED after an unintentional overdose of Percocet, revived with Narcan by EMS.? Patient will be admitted the hospital for treatment of rhabdomyolysis, pneumonitis, and RSV with IV steroids and fluids. Pneumonitis no sob or hypoxia Chest x-ray shows worsening coarse interstitial prominence since yesterday with concern for pneumonitis Likely secondary to aspiration No current concern for bacterial infection, hold antibiotics for now nebs prn ,switched to po steriods. RSV Pt not complaining of SOB or difficulty breathing Satting at 95% on RA Treat as above Rhabdomyolysis Patient has no acute complaints of muscle pain or weakness Creatinine kinase [place] 1596 [place] [address] Creatinine 0.8 d/w nephro-ivf ns -moniter renal function /electrolytes. Elevated troponin Troponin elevated at 65.0 Most likely due to demand ischemia, EKG showed sinus tachycardia with no evidence of acute ischemia Repeat troponin Polysubstance use disorder Addiction medicine consult-added clonidine. Monitor for withdrawal Asthma Does not appear to be in acute exacerbation Receiving DuoNebs and steroids Continue albuterol rescue inhaler prn ongoing need for hospitlisation: Rhabdomyolysis: On IV fluids-need close monitoring of CPK, renal function electrolytes. Time Spent With Patient Time: Total time managing care of this patient today ____ minutes. Quality Stroke Does the patient have a stroke diagnosis?: No VTE Prior VTE?: No VTE Risk Level:: Medical - moderate - high VTE Device Contraindication: Treatment Not Indicated VTE Drug Contraindication: N/A - Med Ordered
[2022-09-05 08:56] LABS: Anion Gap 14 (12-20); Blood Urea Nitrogen 11 mg/dL (9-16); Calcium 9.4 mg/dL (8.4-10.2); Carbon Dioxide 25 mmol/L (22-29); Chloride 102 mmol/L (96-108); Creatinine Clr Calc Pharmacy 148.1; Estimated Glomerular Filt Rate > 60; Glucose Random 202 mg/dL (60-115); Potassium 4.1 mmol/L (3.3-5.1); Sodium 137 mmol/L (135-145)
[2022-09-05 09:11] VITALS: BP 131/62; PULSE 81; RESP 18; TEMP 37; O2SAT 98
--- NOTE | 2022-09-05 09:29 | PC.NURSE ---
pt fluids dc'd per dr order, ck result this am elevated compared to previous. dr rodas aware, awaiting further orders. report completed to med surg esther de luna.
--- NOTE | 2022-09-05 10:00 | PC.NURSE ---
pt refusing to be transported up to inpt bed assignment without his belongings. d/t protocol for overdose, pt belongings have been secured in security decon. awaiting response from hospitalist at this time.
--- NOTE | 2022-09-05 10:14 | P.CONNP_ITS ---
History of Present Illness Reason for Consult Consult date: 09/05/22 Chief Complaint Chief complaint: OD, NARCAN GIVEN W/GOOD RESULT History of Present Illness Narrative: 27 year old patient with normal baseline kidney function admitted with percocet overdose and currently with elevated CPK. He? was found unresponsive on the ground outside of his mother's house, given 4 mg of intranasal Narcan with good effect.? At the time of the consultation he tells me he wants to leave. He denies fever, chills, chest pain, shortness of breath, nausea, vomiting or diarrhea. Review of Systems Review of Systems 10 points ROS negative except for pertinent in HPI [facility] Past Medical History Medical History Asthma Social History Social History Household Members: Other Household Members Other:: Mom Housing: House Do you presently have visiting nurse or other home services: No Alcohol intake: unknown Patient Tobacco Use Status: Current someday Tobacco user Tobacco use type: Cigarette e-Cigarette/Vaping Use: Currently Using Substance Use Type: Opiates Advance Directives: No Advance Directives Information Provided: Yes Meds Allergies Allergy/AdvReac Type Severity Reaction Status Date / Time seafood Allergy Severe Anaphylaxis Verified 09/04/22 13:27 Penicillins [PENICILLINS] Allergy Intermediate RASH Verified 09/04/22 13:27 Active Medications: Current Medications Acetaminophen (Acetaminophen 325 Mg Tablet) 650 mg PO Q6H PRN PRN Reason: Pain, Mild (Pain Scale 1-3) Albuterol Sulfate (Albuterol Sulfate (0.083%) 2.5 Mg/3 Ml Vial.Neb) 2.5 mg INHALE Q4H PRN PRN Reason: wheezing Albuterol Sulfate 2.5 mg/ (Ipratropium [place] 0.5 mg) 0 mg INHALE RQ4H WHILE AWAKE [facility] Last Admin: 09/05/22 07:07 Dose: 2.5 each Docusate Sodium (Docusate Sodium 100 Mg Capsule) 100 mg PO DAILY PRN PRN Reason: Constipation Enoxaparin Sodium (Enoxaparin Sodium 40 Mg/0.4 Ml Syringe) 40 mg SUBCUT Q24H [facility] Last Admin: 09/04/22 19:09 Dose: Not Given Fluticasone/Vilanterol (Fluticasone/Vilanterol 100/25 Blst.W.Dev) 1 puff INHALE RDAILY [facility] Last Admin: 09/05/22 07:09 Dose: Not Given Sodium Bicarbonate 150 meq/ (Dextrose) 1,000 mls @ 150 mls/hr IV .Q6H40M [facility] Methylprednisolone Sodium Succinate (Methylprednisolone Sod Succ 125 Mg/2 Ml Vial) 60 mg IVPUSH Q8H [facility] Last Admin: 09/05/22 01:56 Dose: 60 mg Ondansetron HCl (Ondansetron Hcl 4 Mg/2 Ml Vial) 4 mg IVPUSH Q8H PRN PRN Reason: Nausea and Vomiting Pharmacy Consult (Consult Rx Perform Med Rec) 1 each MISCELLANE ONCE PRN PRN Reason: Consult order Sodium Chloride (0.9 % Sodium Chloride Flush 3 Ml Syringe) 3 ml IVFLUSH QSHIFT [facility] Last Admin: 09/05/22 08:16 Dose: Not Given Home Medications Medication Instructions Recorded Confirmed Last Taken Type albuterol sulfate 2.5 mg/3 mL 3 ml inhalation Q4-6H PRN wheezing 09/04/22 Unknown History (0.083 %) solution for nebulization Physical Exam Vital Signs: Last Vital Signs Temp 98.6 F 09/05/22 09:11 Pulse 81 09/05/22 09:11 Resp 18 09/05/22 09:11 BP 131/62 09/05/22 09:11 Pulse Ox 98 09/05/22 09:11 O2 Del Method 09/05/22 09:11 BMI result Body Mass Index 28.0 Const General: no acute distress, alert and awake HEENT Head: Yes normocephalic and Yes atraumatic Neck Neck: Yes supple Resp Auscultation: clear to auscultation bilaterally Cardio Heart sounds: S1 normal heart sound present and S2 normal heart sound present GI Palpation (GI): Soft to palpation and nontender Extrem General: Yes no pedal edema Results Lab Results 09/05/22 06:03 09/05/22 08:29 Lab results: Chemistry 09/04/22 09/05/22 14:34 08:29 Sodium 140 137 Potassium 3.8 4.1 Carbon Dioxide 24 25 BUN 13 11 Creatinine 0.91 0.80 Calcium 9.1 9.4 Hematology 09/04/22 09/05/22 14:34 06:03 WBC 15.9 H 10.0 Hgb 13.1 L 13.4 L Plt Count 281 291 Assessment and Plan (1) Rhabdomyolysis: Status: Acute Plan kidney function normal no evidence for heme pigment nephrotoxicity rising CPK REC IVF NS 125 cc/hr check phosphorus level follow kidney function and electrolytes Time Spent With Patient Time: Total time managing care of this patient today ____ minutes. Procedures Date of Service Date of Service: 09/05/22
[2022-09-05] MEDS: 0.9 % Sodium Chloride 1,000 ML 125 ML IVCONT ×2 (10:38→19:29)
--- NOTE | 2022-09-05 10:41 | HO.ADDICT_ITS ---
History of Present Illness Date of Service: 09/05/2022 Chief Complaint: OD, NARCAN GIVEN W/GOOD RESULT Reason for Consult: opioid overdose Sources of Information: patient interviewed and chart reviewed HPI Narrative: Patient is a 27 year old male currently medically admitted with rhabdo and pneumonitis secondary to opioid overdose --of note this is patients second opioid overdose in 2 days. Patient seen with Recovery Support RN in room 8 of main ED--patient awaiting transfer to medical floor--he was awake, alert, engaged in interview. Discussed current opioid use, which patient reports has been using (intranasal) btwn 3-6 pills a day--but states this is not a daily thing. He reports buying percocet on the street, however this automobile and property underwriter informed patient that he has actually been buying pressed pills which contain fentanyl and have caused his overdoses. Reports he has been using percocets since he was 12 or 13 years old, unclear to what extent Denies any other substance use. Denies any history of treatment or MOUD (methadone, suboxone). Denied any withdrawal sx., including anxiety when seen by this automobile and property underwriter. None observed either. During interview patient stated he wants to go home because he does not have his belongings (belongings in [facility]). 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 This automobile and property underwriter reviewed overdose prevention strategies with patient, including using smaller amounts of pressed pills, ensuring narcan is available. 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 Reviewed how medications can significantly reduce risk of overdose and will treat sx that lead to use. When automobile and property underwriter left the room, patient was still contemplating leaving or staying--this automobile and property underwriter encouraged patient to report if he was feeling anxiety, withdrawal sx, or feelings that he had to use so that we can address those sx appropriately here. Review of Systems Constitutional: Reports as per HPI and Reports no additional constitutional complaints Diagnostics Vital Signs (24Hr): Vital Signs - 24 hr 09/04/22 13:27 09/04/22 14:09 09/04/22 15:40 Temperature 98.5 F 98.7 F Pulse Rate 110 H 112 H Respiratory Rate 18 20 Blood Pressure 130/69 108/54 L Pulse Oximetry 96 95 Oxygen Delivery Method Room Air Room Air 09/04/22 17:13 09/04/22 19:15 09/04/22 20:21 Temperature 99.0 F 98.5 F Pulse Rate 91 69 68 Respiratory Rate 20 18 18 Blood Pressure 119/56 L 113/63 Pulse Oximetry 95 97 Oxygen Delivery Method Room Air Room Air 09/04/22 20:47 09/04/22 21:51 09/04/22 23:36 Temperature 98.2 F 98.1 F Pulse Rate 74 65 90 Respiratory Rate 18 18 18 Blood Pressure 121/62 118/59 L 127/77 Pulse Oximetry 98 96 100 Oxygen Delivery Method Room Air Room Air Room Air 09/05/22 01:57 09/05/22 05:49 09/05/22 07:08 Temperature 98.2 F Pulse Rate 86 71 71 Respiratory Rate 16 18 18 Blood Pressure 132/65 145/70 H Pulse Oximetry 99 98 Oxygen Delivery Method Room Air Room Air 09/05/22 09:11 Temperature 98.6 F Pulse Rate 81 Respiratory Rate 18 Blood Pressure 131/62 Pulse Oximetry 98 Oxygen Delivery Method Room Air BMI result Body Mass Index 28.0 Labs 09/05/22 06:03 09/05/22 08:29 Labs: Laboratory Results - last 48 hr 09/04/22 09/04/22 09/04/22 14:13 14:34 14:34 WBC 15.9 H RBC 4.60 Hgb 13.1 L Hct 38.3 L MCV 83.3 MCH 28.5 MCHC 34.2 RDW 13.1 Plt Count 281 MPV 10.3 Immature Gran % (Auto) 0.4 Neut % (Auto) 83.0 H Lymph % (Auto) 6.5 L [place] % (Auto) 8.5 Eos % (Auto) 1.3 Baso % (Auto) 0.3 Lymph # (Auto) 1.0 L [place] # (Auto) 1.4 H Eos # (Auto) 0.2 Baso # (Auto) 0.0 Abs Immat Gran (auto) 0.06 H Absolute Neuts (auto) 13.2 H Absolute Nucleated RBC 0.000 Nucleated RBC % (auto) 0.0 PT INR Sodium 140 Potassium 3.8 Chloride 105 Carbon Dioxide 24 Anion Gap 15 BUN 13 Creatinine 0.91 Estim Creat Clear Calc 130.2 Estimated GFR > 60 Random Glucose 102 Lactic Acid Calcium 9.1 Magnesium 2.0 Total Bilirubin 0.4 Direct Bilirubin 0.2 AST 40 H ALT 17 Alkaline Phosphatase 88 Total Creatine Kinase 1596 H Troponin I High Sens B-Natriuretic Peptide Total Protein 6.5 Albumin 4.0 Urine Opiates Screen Urine Fentanyl Screen Ur Barbiturates Screen Ur Phencyclidine Scrn Ur Amphetamines Screen U Benzodiazepines Scrn Urine Cocaine Screen U Marijuana (THC) Screen Influenza Type A (PCR) NEGATIVE Influenza Type B (PCR) NEGATIVE RSV RNA Qual (PCR) POSITIVE A SARS-CoV-2 RNA (RT-PCR) NEGATIVE 09/04/22 09/04/22 09/04/22 14:34 14:34 14:34 WBC RBC Hgb Hct MCV MCH MCHC RDW Plt Count MPV Immature Gran % (Auto) Neut % (Auto) Lymph % (Auto) [place] % (Auto) Eos % (Auto) Baso % (Auto) Lymph # (Auto) [place] # (Auto) Eos # (Auto) Baso # (Auto) Abs Immat Gran (auto) Absolute Neuts (auto) Absolute Nucleated RBC Nucleated RBC % (auto) PT 14.0 H INR 1.2 H Sodium Potassium Chloride Carbon Dioxide Anion Gap BUN Creatinine Estim Creat Clear Calc Estimated GFR Random Glucose Lactic Acid 1.6 Calcium Magnesium Total Bilirubin Direct Bilirubin AST ALT Alkaline Phosphatase Total Creatine Kinase Troponin I High Sens 65.0 H B-Natriuretic Peptide Total Protein Albumin Urine Opiates Screen Urine Fentanyl Screen Ur Barbiturates Screen Ur Phencyclidine Scrn Ur Amphetamines Screen U Benzodiazepines Scrn Urine Cocaine Screen U Marijuana (THC) Screen Influenza Type A (PCR) Influenza Type B (PCR) RSV RNA Qual (PCR) SARS-CoV-2 RNA (RT-PCR) 09/04/22 09/04/22 09/04/22 14:34 14:46 18:45 WBC RBC Hgb Hct MCV MCH MCHC RDW Plt Count MPV Immature Gran % (Auto) Neut % (Auto) Lymph % (Auto) [place] % (Auto) Eos % (Auto) Baso % (Auto) Lymph # (Auto) [place] # (Auto) Eos # (Auto) Baso # (Auto) Abs Immat Gran (auto) Absolute Neuts (auto) Absolute Nucleated RBC Nucleated RBC % (auto) PT INR Sodium Potassium Chloride Carbon Dioxide Anion Gap BUN Creatinine Estim Creat Clear Calc Estimated GFR Random Glucose Lactic Acid Calcium Magnesium Total Bilirubin Direct Bilirubin AST ALT Alkaline Phosphatase Total Creatine Kinase Troponin I High Sens 62.7 H B-Natriuretic Peptide 48 Total Protein Albumin Urine Opiates Screen Not Detected Urine Fentanyl Screen POSITIVE H Ur Barbiturates Screen Not Detected Ur Phencyclidine Scrn Not Detected Ur Amphetamines Screen Not Detected U Benzodiazepines Scrn Not Detected Urine Cocaine Screen Not Detected U Marijuana (THC) Screen POSITIVE H Influenza Type A (PCR) Influenza Type B (PCR) RSV RNA Qual (PCR) SARS-CoV-2 RNA (RT-PCR) 09/05/22 09/05/22 06:03 08:29 WBC 10.0 RBC 4.63 Hgb 13.4 L Hct 39.3 L MCV 84.9 MCH 28.9 MCHC 34.1 RDW 13.1 Plt Count 291 MPV 10.8 Immature Gran % (Auto) Neut % (Auto) Lymph % (Auto) [place] % (Auto) Eos % (Auto) Baso % (Auto) Lymph # (Auto) [place] # (Auto) Eos # (Auto) Baso # (Auto) Abs Immat Gran (auto) Absolute Neuts (auto) Absolute Nucleated RBC 0.000 Nucleated RBC % (auto) 0.0 PT INR Sodium 137 Potassium 4.1 Chloride 102 Carbon Dioxide 25 Anion Gap 14 BUN 11 Creatinine 0.80 Estim Creat Clear Calc 148.1 Estimated GFR > 60 Random Glucose 202 H Lactic Acid Calcium 9.4 Magnesium Total Bilirubin Direct Bilirubin AST ALT Alkaline Phosphatase Total Creatine Kinase 88887 H Troponin I High Sens B-Natriuretic Peptide Total Protein Albumin Urine Opiates Screen Urine Fentanyl Screen Ur Barbiturates Screen Ur Phencyclidine Scrn Ur Amphetamines Screen U Benzodiazepines Scrn Urine Cocaine Screen U Marijuana (THC) Screen Influenza Type A (PCR) Influenza Type B (PCR) RSV RNA Qual (PCR) SARS-CoV-2 RNA (RT-PCR) Imaging Radiology Impressions: ITS Impressions Chest X-Ray 09/04/22 14:05 IMPRESSION: Worsened coarse interstitial prominence. The appearance is nonspecific and could reflect pulmonary edema, ARDS, bronchitis, interstitial pneumonitis, etc. Mental Status Exam Mental Status Exam Patient Appearance: Appropriate Patient Orientation: Person, Place, Time and Situation Level of Consciousness: Awake and Appropriate Patient Behavior: Appropriate, Guarded and Cooperative Affect Description: Anxious and Apprehensive Medications Medications Current Medications Acetaminophen (Acetaminophen 325 Mg Tablet) 650 mg PO Q6H PRN PRN Reason: Pain, Mild (Pain Scale 1-3) Albuterol Sulfate (Albuterol Sulfate (0.083%) 2.5 Mg/3 Ml Vial.Neb) 2.5 mg INHALE Q4H PRN PRN Reason: wheezing Albuterol Sulfate 2.5 mg/ (Ipratropium [place] 0.5 mg) 0 mg INHALE RQ4H WHILE AWAKE [facility] Last Admin: 09/05/22 07:07 Dose: 2.5 each Docusate Sodium (Docusate Sodium 100 Mg Capsule) 100 mg PO DAILY PRN PRN Reason: Constipation Enoxaparin Sodium (Enoxaparin Sodium 40 Mg/0.4 Ml Syringe) 40 mg SUBCUT Q24H [facility] Last Admin: 09/04/22 19:09 Dose: Not Given Fluticasone/Vilanterol (Fluticasone/Vilanterol 100/25 Blst.W.Dev) 1 puff INHALE RDAILY [facility] Last Admin: 09/05/22 07:09 Dose: Not Given Sodium Chloride (Ns) 1,000 mls @ 125 mls/hr IVCONT .Q8H [facility] Last Admin: 09/05/22 10:38 Dose: 125 mls/hr Methylprednisolone Sodium Succinate (Methylprednisolone Sod Succ 125 Mg/2 Ml Vial) 60 mg IVPUSH Q8H [facility] Last Admin: 09/05/22 10:38 Dose: 60 mg Ondansetron HCl (Ondansetron Hcl 4 Mg/2 Ml Vial) 4 mg IVPUSH Q8H PRN PRN Reason: Nausea and Vomiting Pharmacy Consult (Consult Rx Perform Med Rec) 1 each MISCELLANE ONCE PRN PRN Reason: Consult order Sodium Chloride (0.9 % Sodium Chloride Flush 3 Ml Syringe) 3 ml IVFLUSH QSHIFT [facility] Last Admin: 09/05/22 08:16 Dose: Not Given Allergies Allergies Allergy/AdvReac Type Severity Reaction Status Date / Time seafood Allergy Severe Anaphylaxis Verified 09/04/22 13:27 Penicillins [PENICILLINS] Allergy Intermediate RASH Verified 09/04/22 13:27 Assessment & Plan Assessment & Plan (1) Opioid use disorder: Status: Acute Code(s): F11.90 - Opioid use, unspecified, uncomplicated Assessment and Plan: * Clonidine BID for anxiety * will continue to check in and assess readiness for additional medications (suboxone) Total time managing care of this patient today _35___ minutes. PMFSH Past Medical History Medical History Asthma Social History Social History Household Members: Family Household Members Other:: Mom Housing: House Do you presently have visiting nurse or other home services: No Alcohol intake: unknown Patient Tobacco Use Status: Current everyday Tobacco user Tobacco use type: Cigarette Cigarette Packs Per Day: 1 Cigarettes Per Day: 20.0 e-Cigarette/Vaping Use: Currently Using Substance Use Type: Marijuana and Painkillers service: No Current occupational status: employed
[2022-09-05 10:44] LABS: Phosphorus 2.8 mg/dL (2.7-4.5)
[2022-09-05] MEDS: cloNIDine HCL 0.1 MG TABLET PO ×2 (12:55→20:19)
--- NOTE | 2022-09-05 14:36 | MHC.RECOVRN ---
Briefly met with pt to follow up and assess for opioid withdrawal. Pt sitting in bed, awake, alert, does not appear in any distress. Pt denies withdrawal symptoms at this time, requesting ice cream. Denies other questions or concerns for t/w.
[2022-09-05 15:16] VITALS: BP 127/65; PULSE 88; RESP 18; TEMP 36.9; O2SAT 97
--- NOTE | 2022-09-05 16:18 | MHC.CM.PN ---
EMR REVIEWED, PT ADMITTED W/OD AND RHABDO. PT REPORTS HE MOVED IN W/HIS MOM D/T KICKING HIM OUT, PT IS INDEP W/ALL CARE AND DENIES USE OF DME/SERVICES. PT DOES REPORT HE IS INTERESTED IN INPT SA TX UPON D/C AND HAS MET W/RECOVERY TEAM. PT DENIES BEING VACC AGAINST COVID, PCP IS HIRAL SALGUERO AT [facility] AND HIS MOM MICHAEL AMARO [phone] IS HCP AND COPY REQUESTED.
[2022-09-05] MEDS: Enoxaparin Sodium 40 MG/0.4 ML SYRINGE SUBCUT (17:27)
[2022-09-05 19:01] VITALS: BP 146/69; PULSE 85; RESP 18; TEMP 37.1; O2SAT 97
[2022-09-05] MEDS: 0.9 % Sodium Chloride Flush 3 ML SYRINGE IVFLUSH (20:16)
[2022-09-06] MEDS: 0.9 % Sodium Chloride 1,000 ML 125 ML IVCONT ×2 (01:37→07:31)
[2022-09-06 03:32] VITALS: BP 144/70; PULSE 73; RESP 18; TEMP 36.8; O2SAT 98
[2022-09-06 06:50] LABS: Anion Gap 13 (12-20); Blood Urea Nitrogen 14 mg/dL (9-16); Calcium 9.1 mg/dL (8.4-10.2); Carbon Dioxide 27 mmol/L (22-29); Chloride 107 mmol/L (96-108); Estimated Glomerular Filt Rate > 60; Glucose Random 132 mg/dL (60-115); Potassium 4.6 mmol/L (3.3-5.1); Sodium 142 mmol/L (135-145)
[2022-09-06] MEDS: cloNIDine HCL 0.1 MG TABLET PO ×2 (07:30→19:36)
[2022-09-06] MEDS: predniSONE 20 MG TABLET 40 MG PO (07:30)
[2022-09-06 07:31] VITALS: BP 121/69; PULSE 63; RESP 18; TEMP 36.5; O2SAT 99
[2022-09-06] MEDS: Fluticasone/Vilanterol 100/25 BLST.W.DEV 1 PUFF INHALE (08:06)
[2022-09-06 08:08] VITALS: PULSE 57; RESP 15; O2SAT 100
--- NOTE | 2022-09-06 10:13 | PM.PNNEP ---
Subjective Subjective Date of Service: 09/06/22 Interval history: Pneumonitis, rhabdomyolysis, drug use. Events noted Physical Exam Vital Signs: Vital Signs: Last Vital Signs Temp 97.7 F 09/06/22 07:31 Pulse 57 09/06/22 08:08 Resp 15 09/06/22 08:08 BP 121/69 09/06/22 07:31 Pulse Ox 99 09/06/22 07:31 O2 Del Method 09/06/22 07:31 BMI result Body Mass Index 28.0 Const: General: awake Eyes: General: appearance normal, both eyes and all related structures Resp: Effort & Inspection: normal respiratory effort Cardio: Rate: regular rate GI: Auscultation: normal bowel sounds Neuro: General: no focal motor deficits Objective Data Labs 09/05/22 06:03 09/06/22 05:38 Labs: Laboratory Results - last 24 hr 09/05/22 09/06/22 08:29 05:38 Sodium 142 Potassium 4.6 Chloride 107 Carbon Dioxide 27 Anion Gap 13 BUN 14 Creatinine 0.79 Estim Creat Clear Calc 150.0 Estimated GFR > 60 Random Glucose 132 H Calcium 9.1 Phosphorus 2.8 Total Creatine Kinase 7569 H Microbiology Microbiology Results: Microbiology 09/04/22 14:46 Blood - Venous Blood Culture - Preliminary No growth after 24 hours. 09/04/22 14:34 Blood - Venous Blood Culture - Preliminary No growth after 24 hours. Procedures Date of Service Date of Service: 09/06/22 Assessment & Plan Assessment and plan (1) Rhabdomyolysis: Status: Acute Plan CPK is trending down Keep I > O with IVF Renal function stable Watch creatinine/Ca/K Time Spent With Patient Time: Total time managing care of this patient today ____ minutes. Progress Note: Quality Stroke Does the patient have a stroke diagnosis?: No
--- NOTE | 2022-09-06 11:22 | MHC.RECOVRN ---
Met with pt in 358 to assess for withdrawal and discuss discharge plans. Pt standing in room, awake, alert, easily engages in conversation. Pt reports mild withdrawal symptoms including diaphoresis overnight as well as body aches. Pt would like to initiate Suboxone. Pt does not appear to be uncomfortable. Pt expresses interest in [facility], would like referrals to local facilities only. Discussed with Jacqueline Caal APRN.
[2022-09-06] MEDS: Buprenorphine/Naloxone 2/0.5mg FILM 1 FILM SUBLINGUAL (11:35)
--- NOTE | 2022-09-06 13:47 | P.PNIM_ITS ---
Subjective Subjective Date of Service: 09/06/22 Interval History: Pneumonitis, rhabdomyolysis, drug use. c/o lung pain, otherwise feels better Review of Systems no sob no chest pain Physical Exam Vital Signs: Vital Signs: Last Vital Signs Temp 97.7 F 09/06/22 07:31 Pulse 57 09/06/22 08:08 Resp 15 09/06/22 08:08 BP 121/69 09/06/22 07:31 Pulse Ox 99 09/06/22 07:31 O2 Del Method 09/06/22 07:31 BMI result Body Mass Index 28.0 Objective Data Active Medications Acetaminophen (Acetaminophen 325 Mg Tablet) 650 mg PO Q6H PRN PRN Reason: Pain, Mild (Pain Scale 1-3) Albuterol Sulfate (Albuterol Sulfate (0.083%) 2.5 Mg/3 Ml Vial.Neb) 2.5 mg INHALE Q4H PRN PRN Reason: wheezing Clonidine HCl (Clonidine Hcl 0.1 Mg Tablet) 0.1 mg PO BID [facility]; Protocol Last Admin: 09/06/22 07:30 Dose: 0.1 mg Documented By: SHOBHA Docusate Sodium (Docusate Sodium 100 Mg Capsule) 100 mg PO DAILY PRN PRN Reason: Constipation Enoxaparin Sodium (Enoxaparin Sodium 40 Mg/0.4 Ml Syringe) 40 mg SUBCUT Q24H [facility] Last Admin: 09/05/22 17:27 Dose: 40 mg Documented By: ANALISA Fluticasone/Vilanterol (Fluticasone/Vilanterol 100/25 Blst.W.Dev) 1 puff INHALE RDAILY [facility] Last Admin: 09/06/22 08:06 Dose: 1 puff Documented By: ANAY Sodium Chloride (Ns) 1,000 mls @ 150 mls/hr IVCONT .Q6H40M [facility] Last Admin: 09/06/22 07:31 Dose: 125 mls/hr Documented By: SHOBHA Ondansetron HCl (Ondansetron Hcl 4 Mg/2 Ml Vial) 4 mg IVPUSH Q8H PRN PRN Reason: Nausea and Vomiting Pharmacy Consult (Consult Rx Perform Med Rec) 1 each MISCELLANE ONCE PRN PRN Reason: Consult order Prednisone (Prednisone 20 Mg Tablet) 40 mg PO DAILY [facility] Last Admin: 09/06/22 07:30 Dose: 40 mg Documented By: SHOBHA Sodium Chloride (0.9 % Sodium Chloride Flush 3 Ml Syringe) 3 ml IVFLUSH QSHIFT [facility] Last Admin: 09/06/22 06:49 Dose: Not Given Documented By: SHOBHA Non-Admin Reason: IV Running Labs 09/05/22 06:03 09/06/22 05:38 Labs: Laboratory Results - last 24 hr 09/06/22 05:38 Anion Gap 13 Estim Creat Clear Calc 150.0 Estimated GFR > 60 Random Glucose 132 H Calcium 9.1 Total Creatine Kinase 7569 H Microbiology Microbiology Results: Microbiology 09/04/22 14:46 Blood Culture - Preliminary Blood - Venous No growth after 24 hours. 09/04/22 14:34 Blood Culture - Preliminary Blood - Venous No growth after 24 hours. Assessment and Plan (1) Opioid use disorder: Status: Acute (2) Respiratory syncytial virus (RSV) infection: Status: Acute (3) Rhabdomyolysis: Status: Acute (4) Pneumonitis: Status: Acute Plan 27-year-old male with a PMH significant for?polysubstance abuse, asthma, who presents to the ED after an unintentional overdose of Percocet, revived with Narcan by EMS.? Patient will be admitted the hospital for treatment of rhabdomyolysis, pneumonitis, and RSV with IV steroids and fluids. Pneumonitis no sob or hypoxia Chest x-ray shows worsening coarse interstitial prominence since yesterday with concern for pneumonitis Likely secondary to aspiration No current concern for bacterial infection, hold antibiotics for now nebs prn ,switched to po steriods. RSV--Pt not complaining of SOB or difficulty breathing Satting at 95% on RA Treat as above Rhabdomyolysis Patient has no acute complaints of muscle pain or weakness [place]inine [place] 1596 [place] [address] to 7K toda Creatinine 0.8 d/w nephro-ivf ns -moniter renal function /electrolytes. Elevated troponin Troponin elevated at 65.0 Most likely due to demand ischemia, EKG showed sinus tachycardia with no evidence of acute ischemia Repeat troponin Polysubstance use disorder Addiction medicine consult-added clonidine. Monitor for withdrawal Asthma Does not appear to be in acute exacerbation Receiving DuoNebs and steroids Continue albuterol rescue inhaler prn ongoing need for hospitlisation: Rhabdomyolysis: On IV fluids-need close monitoring of CPK, renal function electrolytes. Time Spent With Patient Time: Total time managing care of this patient today ____ minutes. Quality Stroke Does the patient have a stroke diagnosis?: No VTE Prior VTE?: No VTE Risk Level:: Medical - moderate - high VTE Device Contraindication: Treatment Not Indicated VTE Drug Contraindication: N/A - Med Ordered
--- NOTE | 2022-09-06 14:27 | MHC.RECOVRN ---
Referral sent to [facility] ([facility]) and Fatuma Acosta.
[2022-09-06 15:39] VITALS: BP 138/80; PULSE 58; RESP 20; TEMP 36.8; O2SAT 99
--- NOTE | 2022-09-06 16:32 | HO.ADDICTPRO ---
Subjective Subjective Date of Service: 09/06/22 Reason For Visit: OD, NARCAN GIVEN W/GOOD RESULT Interim History: Patient seen by Recovery Support RN earlier this morning. Reporting mild withdrawal sx--sweating overnight, body aches and joint pain. Suboxone 2mg film ordered and administered today mid morning, with positive effect. Patient seen several hours after dose administration and reporting feeling better. States knee pain and back pain has resolved. Feels BID Clonidine has been helpful with anxiety. Longer discussion around patients use of pressed pills. Reports he has been buying what he believed to be percocet for the last 9 months or more, he would often seek them out when he was having feelings of depression or discord with his girlfriend. He reports his use has increased over time, but states it was never daily. Patient very open to discussing treatment options and ongoing care [place] [facility] Review of Systems Constitutional: Reports as per HPI Mental Status Exam Mental Status Exam Patient Appearance: Appropriate Patient Orientation: Person, Place, Time and Situation Level of Consciousness: Awake and Appropriate Patient Behavior: Appropriate, Talkative and Cooperative Affect Description: Calm and Appropriate Thought Process: Goal Oriented Judgement: Good Diagnostics Vital Signs (24Hr): Vital Signs - 24 hr 09/05/22 19:01 09/06/22 03:32 09/06/22 07:31 Temperature 98.7 F 98.2 F 97.7 F Pulse Rate 85 73 63 Respiratory Rate 18 18 18 Blood Pressure 146/69 H 144/70 H 121/69 Pulse Oximetry 97 98 99 Oxygen Delivery Method Room Air Room Air Room Air 09/06/22 08:08 09/06/22 15:39 Temperature 98.2 F Pulse Rate 57 58 Respiratory Rate 15 20 Blood Pressure 138/80 Pulse Oximetry 99 Oxygen Delivery Method Room Air BMI result Body Mass Index 28.0 Labs 09/05/22 06:03 09/06/22 05:38 Labs: Laboratory Results - last 48 hr 09/04/22 09/05/22 09/05/22 18:45 06:03 08:29 WBC 10.0 RBC 4.63 Hgb 13.4 L Hct 39.3 L MCV 84.9 MCH 28.9 MCHC 34.1 RDW 13.1 Plt Count 291 MPV 10.8 Absolute Nucleated RBC 0.000 Nucleated RBC % (auto) 0.0 Sodium 137 Potassium 4.1 Chloride 102 Carbon Dioxide 25 Anion Gap 14 BUN 11 Creatinine 0.80 Estim Creat Clear Calc 148.1 Estimated GFR > 60 Random Glucose 202 H Calcium 9.4 Phosphorus 2.8 Total Creatine Kinase 30636 H Troponin I High Sens 62.7 H 09/06/22 05:38 WBC RBC Hgb Hct MCV MCH MCHC RDW Plt Count MPV Absolute Nucleated RBC Nucleated RBC % (auto) Sodium 142 Potassium 4.6 Chloride 107 Carbon Dioxide 27 Anion Gap 13 BUN 14 Creatinine 0.79 Estim Creat Clear Calc 150.0 Estimated GFR > 60 Random Glucose 132 H Calcium 9.1 Phosphorus Total Creatine Kinase 7569 H Troponin I High Sens Imaging Radiology Impressions: ITS Impressions Chest X-Ray 09/04/22 14:05 IMPRESSION: Worsened coarse interstitial prominence. The appearance is nonspecific and could reflect pulmonary edema, ARDS, bronchitis, interstitial pneumonitis, etc. Medications Medications Current Medications Acetaminophen (Acetaminophen 325 Mg Tablet) 650 mg PO Q6H PRN PRN Reason: Pain, Mild (Pain Scale 1-3) Albuterol Sulfate (Albuterol Sulfate (0.083%) 2.5 Mg/3 Ml Vial.Neb) 2.5 mg INHALE Q4H PRN PRN Reason: wheezing Clonidine HCl (Clonidine Hcl 0.1 Mg Tablet) 0.1 mg PO BID [facility]; Protocol Last Admin: 09/06/22 07:30 Dose: 0.1 mg Docusate Sodium (Docusate Sodium 100 Mg Capsule) 100 mg PO DAILY PRN PRN Reason: Constipation Enoxaparin Sodium (Enoxaparin Sodium 40 Mg/0.4 Ml Syringe) 40 mg SUBCUT Q24H [facility] Last Admin: 09/05/22 17:27 Dose: 40 mg Fluticasone/Vilanterol (Fluticasone/Vilanterol 100/25 Blst.W.Dev) 1 puff INHALE RDAILY [facility] Last Admin: 09/06/22 08:06 Dose: 1 puff Sodium Chloride (Ns) 1,000 mls @ 150 mls/hr IVCONT .Q6H40M [facility] Last Infusion: 09/06/22 15:41 Dose: Infused Ondansetron HCl (Ondansetron Hcl 4 Mg/2 Ml Vial) 4 mg IVPUSH Q8H PRN PRN Reason: Nausea and Vomiting Pharmacy Consult (Consult Rx Perform Med Rec) 1 each MISCELLANE ONCE PRN PRN Reason: Consult order Prednisone (Prednisone 20 Mg Tablet) 40 mg PO DAILY [facility] Last Admin: 09/06/22 07:30 Dose: 40 mg Sodium Chloride (0.9 % Sodium Chloride Flush 3 Ml Syringe) 3 ml IVFLUSH QSHIFT [facility] Last Admin: 09/06/22 14:45 Dose: Not Given Allergies Allergies Allergy/AdvReac Type Severity Reaction Status Date / Time seafood Allergy Severe Anaphylaxis Verified 09/04/22 13:27 Penicillins [PENICILLINS] Allergy Intermediate RASH Verified 09/04/22 13:27 Assessment & Plan Assessment & Plan (1) Opioid use disorder: Status: Acute Code(s): F11.90 - Opioid use, unspecified, uncomplicated Assessment and Plan: suboxone 2mg QD will reassess in AM need for PM dose Recovery Support RN following regarding discharge plan--CSS referrals have been sent out Total time managing care of this patient today _35___ minutes.
--- NOTE | 2022-09-06 17:05 | MHC.CM.PN ---
THIS COOK MAYONNAISE MET WITH PATIENT'S MOM PER REQUEST. (WITH ASSIST OF OIL AGENT) MOTHER IS GOING TO THE COURTS TOMORROW FOR 0900 TO TRY TO OBTAIN A SECTION-35 FOR PATIENT SHE ASKS THAT PATIENT NOT BE TOLD THIS PATIENT HJAS NOT ASKED THIS QUESTION. RN AWARE. COVERING BUILDING TECH TO BE MADE AWARE
[2022-09-06 19:14] VITALS: BP 142/65; PULSE 56; RESP 18; TEMP 36.2; O2SAT 98
[2022-09-06] MEDS: 0.9 % Sodium Chloride Flush 3 ML SYRINGE IVFLUSH (19:36)
[2022-09-06] MEDS: 0.9 % Sodium Chloride 1,000 ML 150 ML IVCONT (19:36)
[2022-09-06] MEDS: Acetaminophen 325 MG TABLET 650 MG PO (19:41)
--- NOTE | 2022-09-06 19:50 | MHC.RECOVSUP ---
? Reason for consult:OPI o? Current location:358? o? Identified substance use concern:? -? Overdose -? Support ? Intervention: o? MAT started or to be started o? Community resources provided o? Harm reduction discussion ? Plan: o? Referral to [facility] o? Follow up tomorrow? ? Additional information:RC provided contact infor for pt, pt is interested in working with a catalyst recovery operator.
[2022-09-07] MEDS: 0.9 % Sodium Chloride 1,000 ML 150 ML IVCONT ×2 (02:13→08:50)
[2022-09-07 03:38] VITALS: BP 140/83; PULSE 50; RESP 18; TEMP 36.3; O2SAT 100
[2022-09-07] MEDS: predniSONE 20 MG TABLET 40 MG PO (07:14)
[2022-09-07] MEDS: cloNIDine HCL 0.1 MG TABLET PO (07:15)
[2022-09-07 07:54] VITALS: BP 141/83; PULSE 51; RESP 18; TEMP 36.6; O2SAT 100
[2022-09-07] MEDS: Buprenorphine/Naloxone 2/0.5mg FILM 1 FILM SUBLINGUAL (08:46)
--- NOTE | 2022-09-07 10:29 | PM.PNNEP ---
Subjective Subjective Date of Service: 09/07/22 Interval history: Events noted Physical Exam Vital Signs: Vital Signs: Last Vital Signs Temp 97.9 F 09/07/22 07:54 Pulse 51 09/07/22 07:54 Resp 18 09/07/22 07:54 BP 141/83 H 09/07/22 07:54 Pulse Ox 100 09/07/22 07:54 O2 Del Method 09/07/22 07:54 BMI result Body Mass Index 28.0 Const: General: awake Eyes: General: appearance normal, both eyes and all related structures Resp: Effort & Inspection: normal respiratory effort Cardio: Rate: regular rate GI: Auscultation: normal bowel sounds Neuro: General: no focal motor deficits Objective Data Labs 09/05/22 06:03 09/06/22 05:38 Labs: Laboratory Results - last 24 hr 09/07/22 08:27 Total Creatine Kinase 2665 H Microbiology Microbiology Results: Microbiology 09/04/22 14:46 Blood - Venous Blood Culture - Preliminary No growth after 48 hours. 09/04/22 14:34 Blood - Venous Blood Culture - Preliminary No growth after 48 hours. Procedures Date of Service Date of Service: 09/07/22 Assessment & Plan Assessment and plan (1) Rhabdomyolysis: Status: Acute Plan CPK is trending down Keep I > O no need for further IVF Renal function stable Watch creatinine/Ca/K as needed Time Spent With Patient Time: Total time managing care of this patient today ____ minutes. Progress Note: Quality Stroke Does the patient have a stroke diagnosis?: No
--- NOTE | 2022-09-07 11:02 | MHC.CM.PN ---
CM MET W/PT WHO GIVES VERBAL PERMISSION FOR CM TO DISCUSS SA TX PLAN WITH PT'S MOTHER, CM MET W/PT/PT'S MOTHER AND RECOVERY NURSE W/SERGEANT OF CORRECTIONS, PT'S MOM WAS PLANNING ON SEC 35ING PT HOWEVER REPORTS WHEN SHE WENT TO THE [facility] THEY TOLD HER IF PT COULD GET A BED/PROGRAM THEY WOULD NO DO THE SEC 35. PT NOW AGREEABLE TO GO FAR [place] FOR INPT SA TX., RECOVERY NURSE FOLLOWING-UP W/REFERRALS AND [facility] MAY HAVE A BED IF NOT REFERRAL'S WILL BE PLACED TO [place]. CM WILL CONT TO FOLLOW.
--- NOTE | 2022-09-07 11:42 | MHC.RECOVRN ---
Met with CM, pt, pts mother, along with rn managed care to discuss discharge plans. Pt continues to express interest in CSS, is now willing to go anywhere. Awaiting return calls from: [facility] Alvaro Jasso T/w will continue bedsearch.
--- NOTE | 2022-09-07 14:44 | MHC.RECOVRN ---
No male CSS bed availability across [place]. Spoke with pt and pts mom, along with spanish interpreter. Pt provided with list of CSS facilities to follow up from home. Pt has intake appt at [facility] at 3:15 on 09/08. Discussed with Jacqueline Caal APRN. Pt will be sent Suboxone to get through until appt. All questions answered to pt and mom's satisfaction. RN aware.
--- NOTE | 2022-09-07 15:14 | MHC.CM.PN ---
PT MEDICALLY CLEARED FOR D/C, RECOVERY NURSE UNABLE TO SECURE A CSS D/T NO AVAILABLE BEDS, PT HAS AN APPT W/CARLY LINDA AT [facility] TOMORROW AT 3:15PM AND SUBOXONE SCRIPT SENT TO [facility], APPT HAS BEEN ADDED TO HIS APPT. MOM AT BEDSIDE AND WILL TRANSPORT.
--- NOTE | 2022-09-07 15:48 | P.DS_ITS ---
DS: Providers Provider Date of Service: 09/07/22 Date of admission: 09/04/22 17:12 Primary care physician: Unknown Physician Consults: 09/04/22 17:12 Addiction Medicine Routine Consulting Provider: Addiction Covering Reason for consultation: Percocet overdose Has provider been notified: No 09/05/22 09:38 Consult to Nephrology Routine Consulting Provider: Sunday Zavala Reason for consultation: rhabdomylisis Has provider been notified: No 09/07/22 14:26 Consult to Care Team Routine Comment: Reason for consultation: substance abuse DS: Diagnosis Discharge Diagnosis (1) Rhabdomyolysis: Status: Acute DS: Summary Hospital Course Hospital Course: Chief Complaint: Drug overdose Pt is a 27-year-old male with a PMH significant for?polysubstance abuse, asthma, who presents to the ED after an unintentional overdose of Percocet.? EMS states patient was found unresponsive on the ground outside of his mother's house, given 4 mg of intranasal Narcan with good effect.? Patient was unresponsive for an unknown period of time. Patient claims he took 3 Percocet and denies taking any other substance.? Patient purchases Percocet from his friend and uses recreationally. Of note patient presented yesterday with similar complaints of an unintended overdose on Percocet, also given Narcan.? Patient appears somnolent and intoxicated, but arousable.? Denies any acute concerns.? No SOB, difficulty breathing.? Denies chest pain/pressure, palpitations.? No headache, fever, chills, nausea, vomiting, abdominal pain.? Denies any muscular pain or weakness. In the ED the patient was tachycardic. Labs were significant for leukocytosis of 15.9, elevated creatinine kinase of 1569, elevated troponin of 65.0. Tox screen positive for fentanyl and marijuana.? Patient tested positive for RSV. CXR showed worsening coarse interstitial prominence since chest x-ray on 07/07/2022, nonspecific findings but concerning for pneumonitis.? EKG showed sinus tachycardia without evidence of acute ischemia. Pt was treated with IVF, vanco and cefepime, DuoNebs.Pt will be admitted to the hospital for treatment of rhabdomyolysis, pneumonitis, and RSV. Hospital course: Pneumonitis--likely from aspiration from overdose, no hypoxia, was treated with steroid, O2 sat 100, no wheezes no striddor. No indication for steroid at this time. RSV--Assymptomatic at this time and no specific treatment Rhabdomyolysis Patient has no acute complaints of muscle pain or weakness Creatinine kinase elevated at 1596? [place] [address] to 7K and 2K today, renal function remains normal. encourage oral fluid upon discharge Elevated troponin Troponin elevated at 65.0 Most likely due to demand ischemia, EKG showed sinus tachycardia with no evidence of acute ischemia Repeat troponin Polysubstance use disorder Addiction medicine consulted and resources have been put in place for him, will be discharge with Suboxone. I talked to him on multiple occasion about the dangers of substance use and will do his part to try and stay clean . I also discussed with the mother that if he continues to the course of substance abuse, she should pursuit section 35 and she has already starting to take initiative towards this. Mod persistent asthma--continue inhalers, no exacerbation at this time. Time Spent with Patient Time attestation: Total time managing care of this patient today ____ minutes. Discharge coordination time: Greater than 30 minutes Quality: Safe Use of Opioids Does Pt have an Active Cancer Diagnosis on the Problem List?: No Quality: Stroke Does the patient have a stroke diagnosis?: No Physical Exam Vital Signs: Vital Signs: Last Vital Signs Temp 97.9 F 09/07/22 07:54 Pulse 51 09/07/22 07:54 Resp 18 09/07/22 07:54 BP 141/83 H 09/07/22 07:54 Pulse Ox 100 09/07/22 07:54 O2 Del Method 09/07/22 07:54 BMI result Body Mass Index 28.0 DS: Data Data Completed and Pending Labs on day of discharge: Laboratory Results - last 24 hr 09/07/22 08:27 Total Creatine Kinase 2665 H Preliminary micro results at discharge 09/04/22 14:46 Blood Culture - Preliminary Blood - Venous No growth after 48 hours. 09/04/22 14:34 Blood Culture - Preliminary Blood - Venous No growth after 48 hours. Discharge Plan Discharge Anticipated Discharge Date/Time: 09/07/22 15:36 Patient Disposition: Home, Self-Care Discharge Diagnosis: rhabdomylosis, drug overdose, RSV Referrals: Brii Dolan [Physician] - 1 Day (YOU HAVE AN APPT AT THE [facility] W/BRII DOLAN AT 3:15PM TOMORROW 09/08/22 FOR SUBOXONE INTAKE APPT. ) Physician,Unknown J [Primary Care Provider] - 1 Week Discharge Medications: New buprenorphine-naloxone [Suboxone] 2-0.5 mg film 1 film sublingual BID Qty: 2 0RF Continued albuterol sulfate [Ventolin HFA] 90 mcg/actuation Hfa Aerosol Inhaler 1 puff inhalation RQ4H PRN (Reason: ASTHMA) Qty: 8.5 0RF fluticasone furoate-vilanterol [Breo Ellipta] 100-25 mcg/dose Blister With Device 1 ea inhalation RDAILY Qty: 1 0RF albuterol sulfate 2.5 mg /3 mL (0.083 %) solution for nebulization 3 ml inhalation Q4-6H PRN (Reason: wheezing) Discharge Orders: Discharge Order (Routine); Ordered 09/07/22 Ordered By: Parish Lobo Diet: Advance to usual diet Activity on Discharge: As tolerated Stand Alone Forms: Patient Portal Discharge page Care Plan Goals: abstinence from substance use, recovery from RSV and rhabdomylosis Health Concerns: Subatance abuse rhabdomylosis Plan of Treatment: Drink plenty of fluid stay Assessment: as above Patient Instructions: Rhabdomyolysis (ED), Rhabdomyolysis (DC), Rhabdomyolysis (GEN)
== END 2022-09-07 17:00 | disposition home or self-care (01) | DRG 812 ==
LOC: HO.ED 16:34 → HO.EDOVER 17:24 → HO.S3 09-05 07:35
PROVIDERS: Internal Medicine; Nurse Practitioner Family; Admitting Provider Student in an Organized Health Care Education/Training Program; Emergency Provider Emergency Medicine; Visit Provider Internal Medicine
DX: T40.2X1A Poisoning by other opioids, accidental (unintentional), initial encounter (principal); J69.0 Pneumonitis due to inhalation of food and vomit; M62.82 Rhabdomyolysis; I24.8 Other forms of acute ischemic heart disease; B97.4 Respiratory syncytial virus as the cause of diseases classified elsewhere; J45.40 Moderate persistent asthma, uncomplicated; F19.10 Other psychoactive substance abuse, uncomplicated; F17.210 Nicotine dependence, cigarettes, uncomplicated; Z20.822 Contact with and (suspected) exposure to COVID-19; Z88.0 Allergy status to penicillin; Z79.51 Long term (current) use of inhaled steroids; Z79.899 Other long term (current) drug therapy
CPT/HCPCS: 0241U; 36415; 71046; 80048; 80076; 80307; 82550; 83605; 83735; 83880; 84100; 84484; 85025; 85027; 85610; 87040; 93005; 94640; 99285; J0692; J1650; J2930; J3370

== ENCOUNTER → 2022-09-08 15:14 | Outpatient (BNVA) | payer OTHER, SELFPAY | PROVIDERS: Visit Provider Nurse Practitioner Psychiatric/Mental Health | DX: F11.20 Opioid dependence, uncomplicated (principal); J45.909 Unspecified asthma, uncomplicated; F17.210 Nicotine dependence, cigarettes, uncomplicated; U07.0 Vaping-related disorder; Z79.899 Other long term (current) drug therapy; Z51.81 Encounter for therapeutic drug level monitoring | CPT/HCPCS: 80305; 99212 ==

== ENCOUNTER → 2022-09-16 14:37 | Outpatient (BNVA) | payer OTHER, SELFPAY | PROVIDERS: Visit Provider Nurse Practitioner Psychiatric/Mental Health | DX: Z51.81 Encounter for therapeutic drug level monitoring (principal); F11.20 Opioid dependence, uncomplicated; F32.A Depression, unspecified; F41.9 Anxiety disorder, unspecified | CPT/HCPCS: 80305; 99212 ==

== ENCOUNTER → 2022-09-23 14:13 | Outpatient (BNVA) | payer OTHER, SELFPAY | PROVIDERS: Visit Provider Nurse Practitioner Psychiatric/Mental Health | DX: F11.20 Opioid dependence, uncomplicated (principal); F32.A Depression, unspecified; F41.9 Anxiety disorder, unspecified; Z79.899 Other long term (current) drug therapy | CPT/HCPCS: 99212 ==

== ENCOUNTER → 2022-09-30 14:44 | Outpatient (BNVA) | payer OTHER, SELFPAY | PROVIDERS: Visit Provider Nurse Practitioner Psychiatric/Mental Health | DX: F11.20 Opioid dependence, uncomplicated (principal); F14.20 Cocaine dependence, uncomplicated; F12.20 Cannabis dependence, uncomplicated; U07.0 Vaping-related disorder; F17.210 Nicotine dependence, cigarettes, uncomplicated; F32.A Depression, unspecified; F41.9 Anxiety disorder, unspecified; Z51.81 Encounter for therapeutic drug level monitoring; Z79.899 Other long term (current) drug therapy | CPT/HCPCS: 80305; 99212 ==

== ENCOUNTER → 2022-10-07 14:34 | Outpatient (BNVA) | payer OTHER, SELFPAY | PROVIDERS: Visit Provider Nurse Practitioner Psychiatric/Mental Health | DX: F11.20 Opioid dependence, uncomplicated (principal); F41.9 Anxiety disorder, unspecified; F32.A Depression, unspecified; F17.210 Nicotine dependence, cigarettes, uncomplicated; Z51.81 Encounter for therapeutic drug level monitoring; Z79.899 Other long term (current) drug therapy | CPT/HCPCS: 99212 ==

== ENCOUNTER 2022-10-22 20:23 | Emergency (ER) | payer OTHER, SELFPAY ==
--- NOTE | ~2022-10-22 | XR_ITS ---
EXAMINATION: XR CHEST CLINICAL INFORMATION: Asthma. COMPARISON: Chest radiograph 09/04/2022. TECHNIQUE: Frontal view of the chest was obtained. FINDINGS: No significant cardiomediastinal contour abnormality. Mild diffuse interstitial thickening with equivocal more focal airspace opacity in the left lower lobe. No pleural effusion or pneumothorax. No acute osseous abnormalities. XR/XR chest 1V IMPRESSION: Diffuse interstitial thickening that could be seen with asthma. Query focal infiltrate/early pneumonia in the left lower lobe. Attention on follow-up recommended.
[2022-10-22 20:41] VITALS: BP 128/56; PULSE 99; RESP 20; TEMP 36.3; O2SAT 95; BMI 24.4
--- NOTE | 2022-10-22 20:51 | ED_ITS ---
HPI - Asthma General Chief Complaint: Asthma Stated Complaint: asthma Time Seen by Provider: 10/22/22 20:51 Source: patient Mode of arrival: ambulatory Limitations: no limitations History of Present Illness HPI Narrative: 27-year-old male presents with 2 days of coughing, wheezing, difficulty breathing, and increased shortness of breath. States that he has been out of his asthma medications. He does smoke marijuana on a regular basis. MD complaint: asthma attack and wheezing Onset (ago): day(s) (2) Severity: severe Context: ran out of meds and smoke exposure Associated symptoms: dry cough Asthma History: childhood onset Related Data Home Medications Medication Instructions Recorded Confirmed albuterol sulfate 2.5 mg/3 mL 3 ml inhalation Q4-6H PRN wheezing 09/04/22 09/04/22 (0.083 %) solution for nebulization Previous Rx's Medication Instructions Recorded albuterol sulfate 90 mcg/actuation 1 puff inhalation RQ4H PRN ASTHMA 07/09/22 aerosol inhaler (Ventolin HFA) #8.5 grams fluticasone furoate 100 1 ea inhalation RDAILY #1 ea 07/09/22 mcg-vilanterol 25 mcg/dose inhalation powder (Breo Ellipta) naloxone 4 mg/actuation nasal 4 mg intranasal Q2M PRN opioid 09/08/22 spray (Narcan) overdose #2 ea sertraline 25 mg tablet 50 mg PO DAILY #30 tabs 09/23/22 digital therapeutics, OUD (Reset-O #1 ea 09/30/22 Digital Brandy (OUD)) buprenorphine 12 mg-naloxone 3 mg 1 film sublingual Q24H #7 ea 10/07/22 sublingual film (Suboxone) albuterol sulfate 2.5 mg/3 mL 2.5 mg (3 mL) inhalation Q4-6H PRN 10/23/22 (0.083 %) solution for nebulization shortness of breath or wheezing #180 mL albuterol sulfate 90 mcg/actuation 2 puff inhalation Q4-6H PRN 10/23/22 aerosol inhaler shortness of breath or wheezing #6.7 grams doxycycline monohydrate 100 mg 100 mg PO BID 10 days #20 caps 10/23/22 capsule prednisone 20 mg tablet 40 mg PO DAILY 5 days #10 tabs 10/23/22 Allergies Allergy/AdvReac Type Severity Reaction Status Date / Time seafood Allergy Severe Anaphylaxis Verified 10/22/22 20:41 Penicillins [PENICILLINS] Allergy Intermediate RASH Verified 10/22/22 20:41 Review of Systems Review of Systems: Constitutional: No Fever, No Chills ENT/Mouth: No Hoarseness, No sore throat, No Rhinorrhea Cardiovascular: No Chest Pain, positive SOB, positive Dyspnea on Exertion Respiratory: positive Cough, No Sputum, positive Wheezing, Neuro: No Weakness, No Numbness, No Headache Yes all other systems are reviewed and are negative [facility] Past Medical History Attestation statement: The following information was validated with the patient. Source: old records reviewed Medical History Asthma Social History Social History Household Members: Family Household Members Other:: Mom Housing: House Do you presently have visiting nurse or other home services: No Alcohol intake: unknown Patient Tobacco Use Status: Current everyday Tobacco user Tobacco use type: Cigarette Cigarette Packs Per Day: 1 Cigarettes Per Day: 20.0 Smoked in Last 30 Days: Yes e-Cigarette/Vaping Use: Currently Using Use of substances other than those prescribed or required for medical reasons: No Substance Use Type: Marijuana and Painkillers Advance Directives: No Advance Directives Information Provided: No service: No Current occupational status: employed Physical Exam Vital Signs: Vital Signs: Last Vital Signs Temp 97.4 F 10/22/22 20:41 Pulse 120 H 10/23/22 00:26 Resp 20 10/23/22 00:26 BP 132/53 L 10/23/22 00:20 Pulse Ox 98 10/23/22 00:20 O2 Del Method 10/23/22 00:20 O2 Flow Rate 4 10/23/22 00:20 BMI result Body Mass Index 24.4 Appearance: Alert. Oriented X3. Moderate distress. Eyes: Pupils equal, round and reactive to light. ENT: Pharynx normal. Neck: Normal inspection. Neck supple. CVS: Tachycardic heart rate and rhythm. Respiratory: Moderate respiratory distress. Coarse lung sounds throughout with poor air flow. Skin: Skin warm and dry. Normal skin color. Normal skin turgor. Extremities: No lower extremity edema. Gait balanced and coordinated. Neuro: No motor deficit. No sensory deficit. Cranial nerves 2-12 intact. Course Course Course Narrative: 27-year-old male with known asthma since childhood presents with acute asthma exacerbation. States that he has been using his albuterol inhaler every hour and ran out today. Has had 2 days of coughing, difficulty breathing, wheezing, and is unable to catch his breath. Lung sounds are coarse with poor air flow, patient is afebrile, speaking in short sentences in orthoptic position. Patient does smell like marijuana and he admits to smoking prior to arrival. Order for magnesium, Solu-Medrol, an hour long albuterol treatment. Chest x-ray is pending. Most likely asthma exacerbation, could possibly be pneumonia, COVID, influenza, RSV. 22:30 lungs continue to be coarse, no improvement in airflow, order for 2nd hour long neb. COVID influenza negative. 23:15 lung sounds still coarse, improved air flow 2nd albuterol neb in progress. 00:09 lung sounds still course, improved air flow however patient will require another neb. patient speaking in complete sentences. Patient updated that his x-rays indicate pneumonia, patient reports anaphylaxis to penicillins. Patient does not want admission. He does understand signs and symptoms indicating worsening condition and will return if those symptoms persist. Will provide patient with albuterol neb prescription, prednisone prescription and doxycycline. 01:24 lung sounds have improved. Speaking in complete sentences. Tachycardic at 01:20 consistent with multiple albuterol inhalers. Ambulatory pulse ox 96%\room air. Plan of care is to discharge home. Medications Administered Discontinued Medications Generic Name Dose Route Start Last Admin Trade Name Neela PRN Reason Stop Dose Admin Albuterol Sulfate 10 mg 10/22/22 20:59 10/22/22 21:15 Albuterol Sulfate (0.083%) 2.5 Mg/3 Ml Vial.Neb INHALE 10/22/22 21:00 10 mg ONCE ONE Administration Albuterol Sulfate 10 mg 10/22/22 22:45 10/22/22 23:12 Albuterol Sulfate (0.083%) 2.5 Mg/3 Ml Vial.Neb INHALE 10/22/22 22:46 10 mg ONCE ONE Administration Albuterol Sulfate 10 mg/ 0 mg 10/23/22 00:09 10/23/22 00:23 Ipratropium [place] 0.5 mg INHALE 10/23/22 00:10 1 each ONCE ONE Administration Magnesium Sulfate 2 gm in 50 mls @ 25 mls/hr 10/22/22 20:59 10/22/22 21:20 Magnesium Sulfate/H2o IV 10/22/22 22:58 25 mls/hr ONCE ONE Administration Methylprednisolone Sodium Succinate 125 mg 10/22/22 20:59 10/22/22 21:17 Methylprednisolone Sod Succ 125 Mg/2 Ml Vial IVPUSH 10/22/22 21:00 125 mg ONCE ONE Administration Medical Decision Making Differential Diagnosis Differential Diagnoses: The differential diagnosis associated with the presentation includes COVID, influenza, asthma exacerbation, pneumonia Admission/Observation Consideration of admission/observation: Escalation of care including admission/observation considered If lung sounds do not improve, and patient is hypoxic then patient will be admitted. Lab Data MDM Lab Attestation statement: I reviewed the patient's lab results. Labs: Lab Results 10/22/22 Range/Units 20:47 COVID-19 (REED) Negative (Negative) COVID-19 Clin Com See Note Independent Interpretation I performed an independent interpretation of an: Plain X-Ray Radiology Impression Discussion of test interpretation with radiology: I have reviewed the radiologist's reading. Radiologist Impression: EXAMINATION: XR CHEST CLINICAL INFORMATION: Asthma. COMPARISON: Chest radiograph 09/04/2022. TECHNIQUE: Frontal view of the chest was obtained. FINDINGS: No significant cardiomediastinal contour abnormality. Mild diffuse interstitial thickening with equivocal more focal airspace opacity in the left lower lobe. No pleural effusion or pneumothorax. No acute osseous abnormalities. XR/XR chest 1V IMPRESSION: Diffuse interstitial thickening that could be seen with asthma. Query focal infiltrate/early pneumonia in the left lower lobe. Attention on follow-up recommended. External Record Review External record reviewed: Outpatient record and Prior outpatient labs Prescription Management I considered prescription management with: Antibiotic Prednisone, albuterol Social Determinants Patient?s care significantly limited by Social Determinants of Health including: Other Social Determinant of Health Discharge Plan Discharge Clinical Impression: Asthma with acute exacerbation, Pneumonia Patient Disposition: Home, Self-Care Additional Instructions: Please stop smoking. You were evaluated for asthma exacerbation. Chest x-ray shows asthma and pneumonia. Please take doxycycline 100 mg every 12 hours for the next 10 days. Use albuterol neb every 4-6 hours and albuterol inhaler 2 puffs every 4-6 hours as needed. Your asthma is severe. Please follow-up with carriage feeder Dr. Garcia. I have referred you. Please call and request an appointment. Take prednisone 40 mg daily for the next 5 days. If your symptoms worsen, you develop fevers, chills, nausea vomiting please return to the emergency department immediately as these may be signs and symptoms of sepsis. Drink plenty of fluids. Thank you for choosing this emergency department for evaluation. Please follow-up with primary care physician as needed. Return to the emergency department for any new, concerning, or worsening symptoms. Prescriptions: New albuterol sulfate 90 mcg/actuation HFA aerosol inhaler 2 puff inhalation Q4-6H PRN (Reason: shortness of breath or wheezing) Qty: 6.7 3RF Rx Instructions: May dispense medication equivalent accepted by patient's insurance albuterol sulfate 2.5 mg /3 mL (0.083 %) solution for nebulization 2.5 mg inhalation Q4-6H PRN (Reason: shortness of breath or wheezing) Qty: 180 2RF Rx Instructions: May dispense medication equivalent accepted by patient's insurance prednisone 20 mg tablet 40 mg PO DAILY 5 Days Qty: 10 0RF doxycycline monohydrate 100 mg capsule 100 mg PO BID 10 Days Qty: 20 0RF No Action albuterol sulfate [Ventolin HFA] 90 mcg/actuation Hfa Aerosol Inhaler 1 puff inhalation RQ4H PRN (Reason: ASTHMA) Qty: 8.5 0RF fluticasone furoate-vilanterol [Breo Ellipta] 100-25 mcg/dose Blister With Device 1 ea inhalation RDAILY Qty: 1 0RF albuterol sulfate 2.5 mg /3 mL (0.083 %) solution for nebulization 3 ml inhalation Q4-6H PRN (Reason: wheezing) naloxone [Narcan] 4 mg/actuation spray,non-aerosol 4 mg intranasal Q2M PRN (Reason: opioid overdose) Qty: 2 0RF Rx Instructions: spray 1 dose into ONE nostril; alternate nostrils w each dose until help arrives sertraline 25 mg tablet 50 mg PO DAILY Qty: 30 0RF (DME) Reset-O Digital Brandy (OUD) Misc See Rx Instructions .MEDSUPPLY Qty: 1 3RF Rx Instructions: As directed (3-4 times a week) 84 days buprenorphine-naloxone [Suboxone] 12-3 mg film 1 film sublingual Q24H Qty: 7 0RF Referrals: Sunil Garcia MD [Physician] - 1 week (Severe asthma)
[2022-10-22 21:08] LABS: COVID-19 Test Negative (Negative); IDNOW Serial# 6674DD1D
[2022-10-22] MEDS: Albuterol Sulfate (0.083%) 2.5 MG/3 ML VIAL.NEB 10 MG INHALE ×2 (21:15→23:12)
[2022-10-22 21:17] VITALS: PULSE 86; RESP 18; O2SAT 96
[2022-10-22] MEDS: methylPREDNISolone Sod Succ 125 MG/2 ML VIAL IVPUSH (21:17)
[2022-10-22] MEDS: Magnesium Sulfate/H2O 2 GM/50 ML PIGGYBACK IV (21:20)
[2022-10-23 00:20] VITALS: BP 132/53; PULSE 120; RESP 12; O2SAT 98
[2022-10-23 00:26] VITALS: PULSE 120; RESP 20; O2SAT 98
[2022-10-23 01:45] VITALS: BP 116/44; PULSE 116; RESP 20
[2022-10-23 01:46] VITALS: O2SAT 96
[2022-10-23] MEDS: Doxycycline Monohydrate 100 MG CAPSULE PO (01:46)
[2022-10-23] MEDS: Albuterol Sulfate 90 MCG 8 GM INHALER 1 PUFF INHALE (01:49)
== END 2022-10-23 01:58 | disposition home or self-care (01) ==
PROVIDERS: Emergency Provider Emergency Medicine Emergency Medical Services
DX: J45.901 Unspecified asthma with (acute) exacerbation (principal); J18.9 Pneumonia, unspecified organism; Z20.822 Contact with and (suspected) exposure to COVID-19
CPT/HCPCS: 71045; 87635; 94640; 96365; 96366; 96375; 99285; J2930; J3475

== ENCOUNTER 2022-11-01 08:41 | Emergency (ER) | payer OTHER, SELFPAY ==
--- NOTE | ~2022-11-01 | XR_ITS ---
EXAMINATION: XR CHEST CLINICAL INFORMATION: Hypoxia COMPARISON: None TECHNIQUE: Frontal view of the chest was obtained. FINDINGS: Cardiac leads overlie the chest. The lungs are well expanded. Bronchial wall thickening. Patchy opacities at both lower lungs. No edema. No pneumothorax. No effusion. The cardiomediastinal silhouette is within normal limits. No acute osseous abnormality. XR/XR chest 1V IMPRESSION: Bronchial wall thickening can be seen with a small airways process such as asthma or atypical/viral infection. Bilateral lower lung opacities could represent superimposed atelectasis or pneumonia.
[2022-11-01 08:57] VITALS: BP 174/78; PULSE 142; RESP 12; TEMP 36.8; O2SAT 60; BMI 3417.4
[2022-11-01] MEDS: Naloxone HCl Nasal 4 MG SPRAY NOSTRILALT (09:11)
[2022-11-01 09:28] VITALS: PULSE 112; RESP 20; O2SAT 98
--- NOTE | 2022-11-01 09:40 | ECG_ITS ---
Test Reason : hypoxia Blood Pressure : / mmHG Vent. Rate : 110 BPM Atrial Rate : 110 BPM P-R Int : 142 ms QRS Dur : 088 ms QT Int : 344 ms P-R-T Axes : 077 095 022 degrees QTc Int : 465 ms Sinus tachycardia Possible Left atrial enlargement Rightward axis Borderline ECG No previous ECGs available Referred By: Melvi Delacruz Electronically Signed By:Ang Greco
--- NOTE | 2022-11-01 09:41 | ED_ITS ---
HPI - General Adult General Chief complaint: Psychiatric Symptoms Stated complaint: FOUND OUTSIDE @ CEMETERY,DENIES SUB USE Time Seen by Provider: 11/01/22 09:00 Source: patient and EMS Mode of arrival: EMS Limitations: no limitations History of Present Illness HPI narrative: 27-year-old male history of asthma came in after was found in the street screaming [place] to [place], patient went initially in the emergency room O2 sat was 60% which improved after was given 4 mg of intranasal Narcan and was placed on non-rebreather. Patient however declined using any drugs and stating that his asthma is a reason of his low oxygen. No CP, no SOB, no fever, no chills. Related Data Previous Rx's Medication Instructions Recorded albuterol sulfate 90 mcg/actuation 1 inh inhalation QID PRN shortness 11/01/22 aerosol inhaler of breath or wheezing #8.5 grams azithromycin 250 mg tablet See Rx Instructions PO .COMPLEX #6 11/01/22 (Zithromax Z-Gustavo) tabs prednisone 20 mg tablet 20 mg PO BID #10 tabs 11/01/22 Allergies Allergy/AdvReac Type Severity Reaction Status Date / Time No Known Allergies Allergy Verified 11/01/22 09:39 Review of Systems Review of Systems: All other systems are reviewed and are negative Constitutional: Reports as per HPI and Reports no additional constitutional complaints Eyes: Reports as per HPI and Reports no additional eye complaints Reports system reviewed and no additional complaints, except as documented Cardiovascular: Reports as per HPI and Reports no additional cardiovascular complaints Respiratory: Reports as per HPI and Reports no additional respiratory complaints Gastrointestinal: Reports as per HPI and Reports no additional gastrointestinal complaints Genitourinary: Reports no additional female genitourinary complaints Musculoskeletal: Reports no additional musculoskeletal complaints Skin/Breast: Reports system reviewed and no additional complaints, except as docu Psychiatric: Reports no additional psychiatric complaints Endocrine: Reports no additional endocrine complaints Hematologic/Lymphatic: Reports no additional hematologic/lymphatic complaints Allergic/Immunologic: Reports no additional allergic/immunologic complaints Reports system reviewed and no additional complaints, except as documented and Reports Abnormal speech present [facility] Social History Social History Use of substances other than those prescribed or required for medical reasons: Yes Advance Directives: No Physical Exam ED Vital Signs: Vital Signs - 24 hr 11/01/22 08:57 11/01/22 09:28 11/01/22 09:58 Temperature 98.2 F Pulse Rate 142 H 112 H 111 H Respiratory Rate 12 20 20 Blood Pressure 174/78 H 142/74 H Pulse Oximetry 60 L 97 Oxygen Delivery Method Room Air Room Air 11/01/22 12:05 Temperature Pulse Rate 108 H Respiratory Rate 16 Blood Pressure 113/61 Pulse Oximetry 97 Oxygen Delivery Method Room Air BMI result Body Mass Index 3417.4 Vital signs have been reviewed as appeared to be correct. Blood pressure normal. Heart rate normal. Respiration rate normal. Temperature normal. Oxygen saturation normal. Appearance: Alert. Oriented X3. No acute distress. Head: Normal external exam. Normocephalic. Atraumatic. No Soliz signs noted. No raccoon eyes noted Eyes: PERRLA. EOMI. Conjunctiva and sclera normal. Eyelids normal. ENT: TM's Normal. Pharynx normal. Uvula midline. Moist mucous membranes. No trismus noted. No drooling noted. No muffled voice noted. Neck: Normal inspection. Neck supple. FROM. No adenopathy. Thyroid Normal. No meningeal signs. No neck mass noted. CVS: Normal heart rate and rhythm. Heart sound normal. No murmurs noted. Pulses normal throughout. Respiratory: No respiratory distress. Painless inspiration. Breath sounds normal. No wheezes/rales/rhonchi noted. Chest nontender. No accessory muscle usage noted or decreased air movement noted. Abdomen: Soft and nontender. Bowel sounds normal in all 4 quadrants. No distention noted. No organomegaly noted. No visible injury noted. Back: No CVA tenderness. Full range of motion noted. Skin: Skin warm and dry. Normal skin color. Normal skin turgor. No rashes/lesions/lacerations noted. Extremities: No lower extremity edema. Extremities exhibit normal range of motion. Extremities nontender. Neuro: Oriented X 3. Cranial nerve exam: II-XII are grossly intact No motor deficit. No sensory deficit. Reflexes normal. Course Course Course Narrative: [age] year male came in here after found wandering in the street with hypoxia, patient is known history of asthma, patient was observed in the emerge ncy department and has been constantly with O2 sat above 95% on the room air no difficulty breathing, repeat lung exam showed no wheezing. Patient was seen last week for similar presentation did not receive prescription and patient is out of bronchodilator we will discharge the patient on albutero l/prednisone/Z-Gustavo. Medications Administered Discontinued Medications Generic Name Dose Route Start Last Admin Trade Name Neela PRN Reason Stop Dose Admin Albuterol Sulfate 5 mg 11/01/22 09:39 11/01/22 09:53 Albuterol Sulfate (0.083%) 2.5 Mg/3 Ml Vial.Neb INHALE 11/01/22 09:40 5 mg ONCE ONE Administration Naloxone HCl 4 mg 11/01/22 08:56 11/01/22 09:11 Naloxone Hcl Nasal 4 Mg Serafina NOSTRILALT 11/01/22 08:57 4 mg ONCE ONE Administration Medical Decision Making Differential Diagnosis Differential Diagnoses: The differential diagnosis associated with the presentation includes (Asthma exacerbation, viral upper respiratory infection, pneumonia, pneumothorax.) Lab Data MDM Lab Attestation statement: I reviewed the patient's lab results. 11/01/22 10:40 11/01/22 10:40 Labs: Lab Results 11/01/22 11/01/22 11/01/22 Range/Units 10:40 10:40 10:40 WBC 14.4 H (4.8-10.8) X10*3/uL RBC 4.60 (4.60-5.80) X10*6/uL Hgb 13.1 L (14.0-18.0) g/dl Hct 37.4 L (42.0-52.0) % MCV 81.3 (80.0-98.0) fL MCH 28.5 (27.0-33.0) pg MCHC 35.0 (31.0-36.0) g/dl RDW 12.6 (11.0-16.0) % Plt Count 314 (160-400) X10*3/uL MPV 10.1 (9.4-12.4) fL Immature Gran % (Auto) 0.2 (0.0-0.4) % Neut % (Auto) 87.9 H (45-73) % Lymph % (Auto) 3.8 L (20-40) % [place] % (Auto) 6.6 (2-11) % Eos % (Auto) 1.3 (0-4) % Baso % (Auto) 0.2 (0-2) % Lymph # (Auto) 0.5 L (1.2-4.9) X10*3/uL [place] # (Auto) 1.0 (0.1-1.2) X10*3/uL Eos # (Auto) 0.2 (0.0-0.4) X10*3/uL Baso # (Auto) 0.0 (0.0-0.2) X10*3/uL Abs Immat Gran (auto) 0.03 (0.00-0.03) X10*3/uL Absolute Neuts (auto) 12.6 H (2.0-8.3) x10*3/uL Absolute Nucleated RBC 0.000 (0.0-0.012) X10*3/uL Nucleated RBC % (auto) 0.0 (0.0-0.2) /100WBC Sodium 139 (135-145) mmol/L Potassium 3.3 (3.3-5.1) mmol/L Chloride 96 (96-108) mmol/L Carbon Dioxide 30 H (22-29) mmol/L Anion Gap 16 (12-20) BUN 14 (9-16) mg/dL Creatinine 0.83 (0.5-1.4) mg/dL Estim Creat Clear Calc -23.7 Estimated GFR > 60 Random Glucose 103 (60-115) mg/dL Calcium 8.8 (8.4-10.2) mg/dL Total Bilirubin 0.9 (0.0-1.0) mg/dL Direct Bilirubin 0.3 (0.0-0.5) mg/dL AST 39 H (5-37) U/L ALT 34 (0-40) U/L Alkaline Phosphatase 90 (39-117) U/L Troponin I High Sens 14.7 (<3.5-35.0) ng/L B-Natriuretic Peptide (<100) pg/mL Total Protein 6.7 (6.5-8.0) g/dL Albumin 4.1 (3.5-5.0) g/dL Lipase 7 L (8-78) U/L COVID-19 (REED) (Negative) COVID-19 Clin Com 11/01/22 11/01/22 Range/Units 10:40 10:40 WBC (4.8-10.8) X10*3/uL RBC (4.60-5.80) X10*6/uL Hgb (14.0-18.0) g/dl Hct (42.0-52.0) % MCV (80.0-98.0) fL MCH (27.0-33.0) pg MCHC (31.0-36.0) g/dl RDW (11.0-16.0) % Plt Count (160-400) X10*3/uL MPV (9.4-12.4) fL Immature Gran % (Auto) (0.0-0.4) % Neut % (Auto) (45-73) % Lymph % (Auto) (20-40) % [place] % (Auto) (2-11) % Eos % (Auto) (0-4) % Baso % (Auto) (0-2) % Lymph # (Auto) (1.2-4.9) X10*3/uL [place] # (Auto) (0.1-1.2) X10*3/uL Eos # (Auto) (0.0-0.4) X10*3/uL Baso # (Auto) (0.0-0.2) X10*3/uL Abs Immat Gran (auto) (0.00-0.03) X10*3/uL Absolute Neuts (auto) (2.0-8.3) x10*3/uL Absolute Nucleated RBC (0.0-0.012) X10*3/uL Nucleated RBC % (auto) (0.0-0.2) /100WBC Sodium (135-145) mmol/L Potassium (3.3-5.1) mmol/L Chloride (96-108) mmol/L Carbon Dioxide (22-29) mmol/L Anion Gap (12-20) BUN (9-16) mg/dL Creatinine (0.5-1.4) mg/dL Estim Creat Clear Calc Estimated GFR Random Glucose (60-115) mg/dL Calcium (8.4-10.2) mg/dL Total Bilirubin (0.0-1.0) mg/dL Direct Bilirubin (0.0-0.5) mg/dL AST (5-37) U/L ALT (0-40) U/L Alkaline Phosphatase (39-117) U/L Troponin I High Sens (<3.5-35.0) ng/L B-Natriuretic Peptide < 10 (<100) pg/mL Total Protein (6.5-8.0) g/dL Albumin (3.5-5.0) g/dL Lipase (8-78) U/L COVID-19 (REED) Positive A (Negative) COVID-19 Clin Com See Note Independent Interpretation I performed an independent interpretation of an: Plain X-Ray (Chest: Bronchial wall thickening the can be seen with asthma.) Radiology Impression Discussion of test interpretation with radiology: I have reviewed the radiologist's reading. Discharge Plan Discharge Clinical Impression: Acute asthma exacerbation Patient Disposition: Home, Self-Care Instructions: Asthma (ED) Prescriptions: New prednisone 20 mg tablet 20 mg PO BID Qty: 10 0RF albuterol sulfate 90 mcg/actuation HFA aerosol inhaler 1 inh inhalation QID PRN (Reason: shortness of breath or wheezing) Qty: 8.5 0RF azithromycin [Zithromax Z-Gustavo] 250 mg tablet See Rx Instructions .ROUTE .COMPLEX Qty: 6 0RF Rx Instructions: For 250 mg dose pack: take 500 mg today (day 1), then 250 mg for 4 days (days 2-5) Interventions: [place]-Suicide Risk Severity Scale Last Done: 11/01/22 09:40
[2022-11-01] MEDS: Albuterol Sulfate (0.083%) 2.5 MG/3 ML VIAL.NEB 5 MG INHALE (09:53)
[2022-11-01 09:58] VITALS: BP 142/74; PULSE 111; RESP 20; O2SAT 97
[2022-11-01 10:44] LABS: MANUAL DIFF FLAG NO
[2022-11-01 10:50] LABS: Basophils Percent Auto 0.2 % (0-2); Eosinophils Absolute Auto 0.2 X10*3/uL (0.0-0.4); Eosinophils Percent Auto 1.3 % (0-4); Hematocrit 37.4 % (42.0-52.0); Hemoglobin 13.1 g/dl (14.0-18.0); Imm Gran Abs Auto 0.03 X10*3/uL (0.00-0.03); Imm Gran Pct Auto 0.2 % (0.0-0.4); Lymphocytes Absolute Auto 0.5 X10*3/uL (1.2-4.9); Lymphocytes Percent Auto 3.8 % (20-40); Mean Corpuscular Hemoglobin 28.5 pg (27.0-33.0); Mean Corpuscular Volume 81.3 fL (80.0-98.0); Mean Platelet Volume 10.1 fL (9.4-12.4); Monocytes Percent Auto 6.6 % (2-11); Neutrophils Absolute Auto 12.6 x10*3/uL (2.0-8.3); Neutrophils Percent Auto 87.9 % (45-73); Platelet Count 314 X10*3/uL (160-400); Red Cell Distribution Width 12.6 % (11.0-16.0); White Blood Count 14.4 X10*3/uL (4.8-10.8)
[2022-11-01 10:56] LABS: COVID-19 Test Positive (Negative); IDNOW Serial# 9DB6401D
[2022-11-01 11:05] LABS: Alanine Aminotransferase 34 U/L (0-40); Albumin Level 4.1 g/dL (3.5-5.0); Alkaline Phosphatase 90 U/L (39-117); Anion Gap 16 (12-20); Aspartate Amino Transferase 39 U/L (5-37); Bilirubin Direct 0.3 mg/dL (0.0-0.5); Bilirubin Total 0.9 mg/dL (0.0-1.0); Blood Urea Nitrogen 14 mg/dL (9-16); Calcium 8.8 mg/dL (8.4-10.2); Carbon Dioxide 30 mmol/L (22-29); Chloride 96 mmol/L (96-108); Creatinine Clr Calc Pharmacy -23.7; Estimated Glomerular Filt Rate > 60; Glucose Random 103 mg/dL (60-115); Lipase 7 U/L (8-78); Potassium 3.3 mmol/L (3.3-5.1); Sodium 139 mmol/L (135-145); Total Protein 6.7 g/dL (6.5-8.0)
[2022-11-01 11:13] LABS: B Type Natriuretic Peptide < 10 pg/mL (<100); Troponin-I High Sensitivity 14.7 ng/L (<3.5-35.0)
[2022-11-01 12:05] VITALS: BP 113/61; PULSE 108; RESP 16; O2SAT 97
[2022-11-01 12:56] LABS: Appearance Urine Clear; Color Urine Dark Yellow; Glucose Urine UA Negative (Negative); Leukocyte Esterase Urine Negative (Negative); Nitrite Urine Negative (Negative); PH 5.5 (5.0-9.0); Specific Gravity - Urine >= 1.030 (1.005-1.025); UMIC TRIGGER UACC YES; Urine Blood Negative (Negative); Urine Ketones 80 mg/dL (Negative); Urine Protein 30 (1+) mg/dL (Neg-Trace)
[2022-11-01 13:01] LABS: Bacteria Urine None Seen (None Seen); RBC Urine 0-2 /HPF (0-2); WBC Urine 0-5 /HPF (0-5)
--- NOTE | 2022-11-01 14:05 | MHC.RECOVRN ---
Met with pt in ED4 prior to dc as pt is familiar with t/w from previous consults and OP office. Pt sitting in bed, awake, alert, easily engages in conversation. Pt was last seen at the [facility] on 10/07 and given a one week Suboxone prescription. Since then, pt reports he had been on vacation and his father . Last took Suboxone a few weeks ago. Pt would like to return to the [facility] and restart the medication. Pt reports having 4 films still at home. Pt reports today was the first substance use since last ED visit and coming to the [facility], pt used 5 bags heroin. Pt attributes use today to life stressors. Discussed/educated pt regarding tolerance and risk for overdose after a period of recovery. Discussed risk of precipitated withdrawal if pt has in fact been using prior to today. Pt denies, states this was one time. Discussed with Jacqueline Caal APRN. Plan for pt to restart Suboxone tonight/tomorrow morning. MQ to send bridge prescription until appt on 10/11/22 at 2:45PM. Pt agreeable to plan, denies questions or concerns.
== END 2022-11-01 13:35 | disposition home or self-care (01) ==
PROVIDERS: Emergency Provider Emergency Medicine
DX: U07.1 COVID-19 (principal); J45.901 Unspecified asthma with (acute) exacerbation; R09.02 Hypoxemia
CPT/HCPCS: 36415; 71045; 80048; 80076; 81001; 83690; 83880; 84484; 85025; 87635; 93005; 94640; 99284; 99285

== ENCOUNTER 2022-11-18 23:44 | Emergency (ER) | payer OTHER, SELFPAY ==
[2022-11-18 23:53] VITALS: BMI 23.0
--- NOTE | 2022-11-18 23:59 | ED.OVERDOSE ---
HPI - Overdose General Chief Complaint: Overdose Stated Complaint: drug use Time Seen by Provider: 11/18/22 23:53 Source: patient, EMS and police Mode of arrival: EMS Limitations: no limitations and altered mental status History of Present Illness HPI Narrative: 27-year-old male came in by EMS under police custody for evaluation of agitation. Patient was found in the street by bystander combative and agitated, patient had multiple presentation to the ED for substance abuse, in the emergency department patient found to be combative and belligerent to the staff. patient declined using any drugs or using any alcohol today. Related Data Home Medications Medication Instructions Recorded Confirmed albuterol sulfate 2.5 mg/3 mL 3 ml inhalation Q4-6H PRN wheezing 09/04/22 09/04/22 (0.083 %) solution for nebulization Previous Rx's Medication Instructions Recorded albuterol sulfate 90 mcg/actuation 1 puff inhalation RQ4H PRN ASTHMA 07/09/22 aerosol inhaler (Ventolin HFA) #8.5 grams fluticasone furoate 100 1 ea inhalation RDAILY #1 ea 07/09/22 mcg-vilanterol 25 mcg/dose inhalation powder (Breo Ellipta) naloxone 4 mg/actuation nasal 4 mg intranasal Q2M PRN opioid 09/08/22 spray (Narcan) overdose #2 ea sertraline 25 mg tablet 50 mg PO DAILY #30 tabs 09/23/22 digital therapeutics, OUD (Reset-O #1 ea 09/30/22 Digital Brandy (OUD)) buprenorphine 12 mg-naloxone 3 mg 1 film sublingual Q24H #7 ea 10/07/22 sublingual film (Suboxone) albuterol sulfate 2.5 mg/3 mL 2.5 mg (3 mL) inhalation Q4-6H PRN 10/23/22 (0.083 %) solution for nebulization shortness of breath or wheezing #180 mL albuterol sulfate 90 mcg/actuation 2 puff inhalation Q4-6H PRN 10/23/22 aerosol inhaler shortness of breath or wheezing #6.7 grams doxycycline monohydrate 100 mg 100 mg PO BID 10 days #20 caps 10/23/22 capsule prednisone 20 mg tablet 40 mg PO DAILY 5 days #10 tabs 10/23/22 albuterol sulfate 90 mcg/actuation 1 inh inhalation QID PRN shortness 11/01/22 aerosol inhaler of breath or wheezing #8.5 grams azithromycin 250 mg tablet See Rx Instructions PO .COMPLEX #6 11/01/22 (Zithromax Z-Gustavo) tabs prednisone 20 mg tablet 20 mg PO BID #10 tabs 11/01/22 Allergies Allergy/AdvReac Type Severity Reaction Status Date / Time seafood Allergy Severe Anaphylaxis Verified 11/01/22 14:23 Penicillins [PENICILLINS] Allergy Intermediate RASH Verified 11/01/22 14:23 Review of Systems Review of Systems: All other systems are reviewed and are negative Constitutional: Reports as per HPI and Reports no additional constitutional complaints Eyes: Reports as per HPI and Reports no additional eye complaints Reports system reviewed and no additional complaints, except as documented Cardiovascular: Reports as per HPI and Reports no additional cardiovascular complaints Respiratory: Reports as per HPI and Reports no additional respiratory complaints Gastrointestinal: Reports as per HPI and Reports no additional gastrointestinal complaints Genitourinary: Reports no additional female genitourinary complaints Musculoskeletal: Reports no additional musculoskeletal complaints Skin/Breast: Reports system reviewed and no additional complaints, except as docu Psychiatric: Reports no additional psychiatric complaints Endocrine: Reports no additional endocrine complaints Hematologic/Lymphatic: Reports no additional hematologic/lymphatic complaints Allergic/Immunologic: Reports no additional allergic/immunologic complaints Reports system reviewed and no additional complaints, except as documented and Reports Abnormal speech present [facility] Past Medical History Medical History Asthma Social History Social History Household Members: Family Household Members Other:: Mom Housing: House Do you presently have visiting nurse or other home services: No Alcohol intake: unknown Patient Tobacco Use Status: Current everyday Tobacco user Tobacco use type: Cigarette Cigarette Packs Per Day: 1 Cigarettes Per Day: 20.0 e-Cigarette/Vaping Use: Currently Using Substance Use Type: Marijuana and Painkillers Advance Directives: No Advance Directives Information Provided: No service: No Current occupational status: employed Physical Exam Vital Signs: Vital Signs: Last Vital Signs Temp 98.7 F 11/19/22 04:35 Pulse 114 H 11/19/22 04:35 Resp 14 11/19/22 04:35 BP 103/58 L 11/19/22 04:35 Pulse Ox 98 11/19/22 04:35 O2 Del Method Nasal Cannula 11/19/22 04:35 O2 Flow Rate 2 11/19/22 04:35 BMI result Body Mass Index 23.0 Vital signs have been reviewed as appeared to be correct. Blood pressure normal. Heart rate normal. Respiration rate normal. Temperature normal. Oxygen saturation normal. Appearance: Agitated, combative, in directable Head: Normal external exam. Normocephalic. Atraumatic. No Soliz signs noted. No raccoon eyes noted Eyes: PERRLA. EOMI. Conjunctiva and sclera normal. Eyelids normal. ENT: TM's Normal. Pharynx normal. Uvula midline. Moist mucous membranes. No trismus noted. No drooling noted. No muffled voice noted. Neck: Normal inspection. Neck supple. FROM. No adenopathy. Thyroid Normal. No meningeal signs. No neck mass noted. CVS: Normal heart rate and rhythm. Heart sound normal. No murmurs noted. Pulses normal throughout. Respiratory: No respiratory distress. Painless inspiration. Breath sounds normal. No wheezes/rales/rhonchi noted. Chest nontender. No accessory muscle usage noted or decreased air movement noted. Abdomen: Soft and nontender. Bowel sounds normal in all 4 quadrants. No distention noted. No organomegaly noted. No visible injury noted. Back: No CVA tenderness. Full range of motion noted. Skin: Skin warm and dry. Normal skin color. Normal skin turgor. No rashes/lesions/lacerations noted. Extremities: No lower extremity edema. Extremities exhibit normal range of motion. Extremities nontender. Neuro: Agitated, combative. Cranial nerve exam: II-XII are grossly intact No motor deficit. No sensory deficit. Reflexes normal. Course Course Course Narrative: Came in after using drugs as combative and agitated required Benadryl/Haldol/Ativan to calm patient. Reevaluation(s) Reevaluation #1: Patient is AAOx3, awake, able to ambulate in the ED. no SI, no HI, no hallucination. Patient feels safe to be discharged home. Time: 07:33 Medications Administered Discontinued Medications Generic Name Dose Route Start Last Admin Trade Name Freq PRN Reason Stop Dose Admin Diphenhydramine HCl 50 mg 11/18/22 23:53 11/19/22 00:00 Diphenhydramine Hcl 50 Mg/Ml Vial IM 11/18/22 23:54 50 mg ONCE ONE Administration Haloperidol Lactate 5 mg 11/18/22 23:53 11/19/22 00:00 Haloperidol Lactate 5 Mg/Ml Vial IM 11/18/22 23:54 5 mg ONCE ONE Administration Lorazepam 2 mg 11/18/22 23:53 11/19/22 00:00 Lorazepam 2 Mg/Ml Vial IM 11/18/22 23:54 2 mg ONCE ONE Administration Medical Decision Making Differential Diagnosis Differential Diagnoses: The differential diagnosis associated with the presentation includes (Substance abuse) Lab Data Labs: Lab Results 11/19/22 Range/Units 01:56 Ethyl Alcohol < 10 mg/dL Discharge Plan Discharge Clinical Impression: Substance abuse Patient Disposition: Home, Self-Care Instructions: Polysubstance Abuse (ED) Prescriptions: No Action albuterol sulfate [Ventolin HFA] 90 mcg/actuation Hfa Aerosol Inhaler 1 puff inhalation RQ4H PRN (Reason: ASTHMA) Qty: 8.5 0RF fluticasone furoate-vilanterol [Breo Ellipta] 100-25 mcg/dose Blister With Device 1 ea inhalation RDAILY Qty: 1 0RF albuterol sulfate 2.5 mg /3 mL (0.083 %) solution for nebulization 3 ml inhalation Q4-6H PRN (Reason: wheezing) albuterol sulfate 90 mcg/actuation HFA aerosol inhaler 2 puff inhalation Q4-6H PRN (Reason: shortness of breath or wheezing) Qty: 6.7 3RF Rx Instructions: May dispense medication equivalent accepted by patient's insurance albuterol sulfate 2.5 mg /3 mL (0.083 %) solution for nebulization 2.5 mg inhalation Q4-6H PRN (Reason: shortness of breath or wheezing) Qty: 180 2RF Rx Instructions: May dispense medication equivalent accepted by patient's insurance prednisone 20 mg tablet 40 mg PO DAILY 5 Days Qty: 10 0RF doxycycline monohydrate 100 mg capsule 100 mg PO BID 10 Days Qty: 20 0RF prednisone 20 mg tablet 20 mg PO BID Qty: 10 0RF albuterol sulfate 90 mcg/actuation HFA aerosol inhaler 1 inh inhalation QID PRN (Reason: shortness of breath or wheezing) Qty: 8.5 0RF azithromycin [Zithromax Z-Gustavo] 250 mg tablet See Rx Instructions .ROUTE .COMPLEX Qty: 6 0RF Rx Instructions: For 250 mg dose pack: take 500 mg today (day 1), then 250 mg for 4 days (days 2-5) naloxone [Narcan] 4 mg/actuation spray,non-aerosol 4 mg intranasal Q2M PRN (Reason: opioid overdose) Qty: 2 0RF Rx Instructions: spray 1 dose into ONE nostril; alternate nostrils w each dose until help arrives sertraline 25 mg tablet 50 mg PO DAILY Qty: 30 0RF (DME) Reset-O Digital Brandy (OUD) Misc See Rx Instructions .MEDSUPPLY Qty: 1 3RF Rx Instructions: As directed (3-4 times a week) 84 days buprenorphine-naloxone [Suboxone] 12-3 mg film 1 film sublingual Q24H Qty: 7 0RF
[2022-11-19] VITALS (10 sets, daily range): BP systolic 100–121; BP diastolic 54–67; PULSE 91–114; RESP 14–18; TEMP 37.1; O2SAT 93–98
[2022-11-19] MEDS: Haloperidol Lactate 5 MG/ML VIAL IM
[2022-11-19] MEDS: LORazepam 2 MG/ML VIAL IM
[2022-11-19] MEDS: diphenhydrAMINE HCL 50 MG/ML VIAL IM
[2022-11-19 02:21] LABS: Ethanol < 10 mg/dL
== END 2022-11-19 08:26 | disposition home or self-care (01) ==
PROVIDERS: Emergency Provider Emergency Medicine
DX: R45.1 Restlessness and agitation (principal); R45.6 Violent behavior; F19.10 Other psychoactive substance abuse, uncomplicated; Z79.899 Other long term (current) drug therapy; F17.210 Nicotine dependence, cigarettes, uncomplicated
CPT/HCPCS: 36415; 82077; 96372; 99284; J1200; J2060

== ENCOUNTER 2023-03-22 23:31 | Emergency (ER) | payer OTHER, SELFPAY ==
[2023-03-22 23:42] VITALS: BP 125/67; BP 134/78; PULSE 93; PULSE 99; RESP 18; TEMP 36.2; O2SAT 92; O2SAT 95; BMI 27.2
[2023-03-23 00:15] LABS: Hematocrit 47.7 % (42.0-52.0); Hemoglobin 16.5 g/dl (14.0-18.0); Mean Corpuscular HGB Conc 34.6 g/dl (31.0-36.0); Mean Platelet Volume 10.3 fL (9.4-12.4); Platelet Count 317 X10*3/uL (160-400); Red Blood Count 5.68 X10*6/uL (4.60-5.80); Red Cell Distribution Width 12.5 % (11.0-16.0); White Blood Count 19.6 X10*3/uL (4.8-10.8)
--- NOTE | 2023-03-23 00:18 | ED.ALCOHOL ---
HPI - Alcohol General Chief Complaint: ETOH/Substance Use Stated Complaint: etoh and drug use Time Seen by Provider: 03/23/23 00:15 Source: patient and EMS Mode of arrival: EMS Limitations: no limitations History of Present Illness HPI narrative: Patient comes to the emergency room for alcohol intoxication . Patient was found by police department wandering in the street. Patient states that he drank a lot today. At this time, patient denies any complaints, denies falling, no injuries. Patient denies using drugs Related Data Home Medications Medication Instructions Recorded Confirmed albuterol sulfate 2.5 mg/3 mL 3 ml inhalation Q4-6H PRN wheezing 09/04/22 09/04/22 (0.083 %) solution for nebulization Previous Rx's Medication Instructions Recorded albuterol sulfate 90 mcg/actuation 1 puff inhalation RQ4H PRN ASTHMA 07/09/22 aerosol inhaler (Ventolin HFA) #8.5 grams fluticasone furoate 100 1 ea inhalation RDAILY #1 ea 07/09/22 mcg-vilanterol 25 mcg/dose inhalation powder (Breo Ellipta) naloxone 4 mg/actuation nasal 4 mg intranasal Q2M PRN opioid 09/08/22 spray (Narcan) overdose #2 ea sertraline 25 mg tablet 50 mg PO DAILY #30 tabs 09/23/22 digital therapeutics, OUD (Reset-O #1 ea 09/30/22 Digital Brandy (OUD)) buprenorphine 12 mg-naloxone 3 mg 1 film sublingual Q24H #7 ea 10/07/22 sublingual film (Suboxone) albuterol sulfate 2.5 mg/3 mL 2.5 mg (3 mL) inhalation Q4-6H PRN 10/23/22 (0.083 %) solution for nebulization shortness of breath or wheezing #180 mL albuterol sulfate 90 mcg/actuation 2 puff inhalation Q4-6H PRN 10/23/22 aerosol inhaler shortness of breath or wheezing #6.7 grams doxycycline monohydrate 100 mg 100 mg PO BID 10 days #20 caps 10/23/22 capsule prednisone 20 mg tablet 40 mg PO DAILY 5 days #10 tabs 10/23/22 albuterol sulfate 90 mcg/actuation 1 inh inhalation QID PRN shortness 11/01/22 aerosol inhaler of breath or wheezing #8.5 grams azithromycin 250 mg tablet See Rx Instructions PO .COMPLEX #6 11/01/22 (Zithromax Z-Gustavo) tabs prednisone 20 mg tablet 20 mg PO BID #10 tabs 11/01/22 Allergies Allergy/AdvReac Type Severity Reaction Status Date / Time seafood Allergy Severe Anaphylaxis Verified 11/01/22 14:23 Penicillins [PENICILLINS] Allergy Intermediate RASH Verified 11/01/22 14:23 Review of Systems Review of Systems: Constitutional : No Weight loss, No Fever, No Chills, No Night Sweats, No Fatigue, No Malaise ENT/Mouth : No Hearing loss, No Ear Pain, No Nasal Congestion, No Sinus Pain, No Hoarseness, No sore throat, No Rhinorrhea, No Swallowing Difficulty Eyes: No Eye Pain, No Swelling, No Redness, No Foreign Body, No Discharge, No Vision Changes Cardiovascular : No Chest Pain, No SOB, No Dyspnea on Exertion, No Orthopnea, No Edema, No Palpitations Respiratory : No Cough, No Sputum, No Wheezing, No Smoke Exposure, No Dyspnea Gastrointestinal : No Nausea, No Vomiting, No Diarrhea, No Constipation, No abdominal Pain, No Hematochezia, No Melena Genitourinary : no irregular bleeding, No Dysuria, No Urinary Frequency, No Hematuria, No Urinary Incontinence, No Urgency, No Flank Pain, No Urinary Flow Changes, No Hesitancy Musculoskeletal : No joint pain, No Myalgias, No Joint Swelling Skin : No Skin Lesions, No rash Neuro : No Weakness, No Numbness, No Paresthesias, No Loss of Consciousness, No Dizziness, No Headache Psych : No Anxiety/Panic, No Depression, No SI/HI/AH/VH, admits to drinking heavily today denies drug use Heme/Lymph: No Bruising, No Bleeding,No Lymphadenopathy Endocrine : No Polyuria, No Polydipsia, No Temperature Intolerance [facility] Past Medical History Medical History Alcohol abuse Asthma Depression Opioid use disorder Social History Social History Household Members: Family Household Members Other:: Mom Housing: House Do you presently have visiting nurse or other home services: No Alcohol intake: current Alcohol intake frequency: 3 or more drinks per day Alcohol type: hard liquor Patient Tobacco Use Status: Current everyday Tobacco user Tobacco use type: Cigarette Cigarette Packs Per Day: 1 Cigarettes Per Day: 20.0 Smoked in Last 30 Days: Yes e-Cigarette/Vaping Use: Currently Using Use of substances other than those prescribed or required for medical reasons: No Substance Use Type: Marijuana and Painkillers Advance Directives: No Advance Directives Information Provided: No service: No Current occupational status: employed Physical Exam ED Vital Signs: Vital Signs - 24 hr 03/22/23 23:42 Temperature 97.2 F Pulse Rate 99 Respiratory Rate 18 Blood Pressure 125/67 Pulse Oximetry 92 Oxygen Delivery Method Room Air BMI result Body Mass Index 27.2 Const Other: Appearance: Alert. Oriented X3. No acute distress. Somnolent but easily arousable Eyes: Pupils equal, round and reactive to light. ENT: Pharynx normal. Neck: Normal inspection. Neck supple. No lymph nodes noted. No crepitus CVS: Normal heart rate and rhythm. Pulses normal. Normal S1 and S2 Respiratory: No respiratory distress. Breath sounds normal. No Wheezing. No rales Abdomen: Soft and nontender. No rigidity. No distention. Skin: Skin warm and dry. Normal skin color. Normal skin turgor. Extremities: No lower extremity edema. No Lacerations. No Rash Neuro: Oriented X 3. No motor deficit. No sensory deficit. Moving all extremities. No slurred speech. CN 2 through 12 grossly intact, ambulatory with steady gait Psych: calm, cooperative, normal affect Medical Decision Making Medical Decision Making MDM Narrative: -patient denies suicidal or homicidal ideation, Section 12 is not indicated -patient's vitals within normal limits -patient ambulatory with steady gait, a bit somnolent. -plan: Metabolize to freedom -patient's ETOH negative, patient likely use narcotics. -for the last hour, patient has been awake, alert and oriented, ambulatory. Oxygen saturation 100% on room air -patient denies SI or HI -patient was discharged home with home Narcan Differential Diagnosis Differential Diagnoses: The differential diagnosis associated with the presentation includes (Alcohol abuse, polysubstance abuse) Admission/Observation Consideration of admission/observation: Escalation of care including admission/observation considered (Patient was under observation reassuring that oxygen saturation was appropriate) Lab Data 03/23/23 00:11 03/23/23 00:11 Labs: Lab Results 03/23/23 03/23/23 Range/Units 00:11 00:11 WBC 19.6 H (4.8-10.8) X10*3/uL RBC 5.68 D (4.60-5.80) X10*6/uL Hgb 16.5 D (14.0-18.0) g/dl Hct 47.7 D (42.0-52.0) % MCV 84.0 (80.0-98.0) fL MCH 29.0 (27.0-33.0) pg MCHC 34.6 (31.0-36.0) g/dl RDW 12.5 (11.0-16.0) % Plt Count 317 (160-400) X10*3/uL MPV 10.3 (9.4-12.4) fL Absolute Nucleated RBC 0.000 (0.0-0.012) X10*3/uL Nucleated RBC % (auto) 0.0 (0.0-0.2) /100WBC Sodium 140 (135-145) mmol/L Potassium 3.8 (3.3-5.1) mmol/L Chloride 105 (96-108) mmol/L Carbon Dioxide 21 L (22-29) mmol/L Anion Gap 18 (12-20) BUN 19 H (9-16) mg/dL Creatinine 0.98 (0.5-1.4) mg/dL Estim Creat Clear Calc 103.9 Estimated GFR > 60 Random Glucose 158 H (60-115) mg/dL Calcium 9.6 D (8.4-10.2) mg/dL Ethyl Alcohol < 10 mg/dL Critical Care Time Critical Care Time Critical Care Time: Yes Total Critical Care Time: 30 Attestation: I have personally provided critical care time. Time includes review of lab data, radiology results, discussion with consultants, and monitoring for potential decompensation. Intervention performed as documented. Discharge Plan Discharge Clinical Impression: Overdose Patient Disposition: Home, Self-Care Instructions: Adult Overdose (ED) Additional Instructions: Please follow-up with your primary care physician tomorrow. If you have any worsening or new symptoms, please return to the emergency room or call 911 Prescriptions: No Action albuterol sulfate [Ventolin HFA] 90 mcg/actuation Hfa Aerosol Inhaler 1 puff inhalation RQ4H PRN (Reason: ASTHMA) Qty: 8.5 0RF fluticasone furoate-vilanterol [Breo Ellipta] 100-25 mcg/dose Blister With Device 1 ea inhalation RDAILY Qty: 1 0RF albuterol sulfate 2.5 mg /3 mL (0.083 %) solution for nebulization 3 ml inhalation Q4-6H PRN (Reason: wheezing) albuterol sulfate 90 mcg/actuation HFA aerosol inhaler 2 puff inhalation Q4-6H PRN (Reason: shortness of breath or wheezing) Qty: 6.7 3RF Rx Instructions: May dispense medication equivalent accepted by patient's insurance albuterol sulfate 2.5 mg /3 mL (0.083 %) solution for nebulization 2.5 mg inhalation Q4-6H PRN (Reason: shortness of breath or wheezing) Qty: 180 2RF Rx Instructions: May dispense medication equivalent accepted by patient's insurance prednisone 20 mg tablet 40 mg PO DAILY 5 Days Qty: 10 0RF doxycycline monohydrate 100 mg capsule 100 mg PO BID 10 Days Qty: 20 0RF prednisone 20 mg tablet 20 mg PO BID Qty: 10 0RF albuterol sulfate 90 mcg/actuation HFA aerosol inhaler 1 inh inhalation QID PRN (Reason: shortness of breath or wheezing) Qty: 8.5 0RF azithromycin [Zithromax Z-Gustavo] 250 mg tablet See Rx Instructions .ROUTE .COMPLEX Qty: 6 0RF Rx Instructions: For 250 mg dose pack: take 500 mg today (day 1), then 250 mg for 4 days (days 2-5) naloxone [Narcan] 4 mg/actuation spray,non-aerosol 4 mg intranasal Q2M PRN (Reason: opioid overdose) Qty: 2 0RF Rx Instructions: spray 1 dose into ONE nostril; alternate nostrils w each dose until help arrives sertraline 25 mg tablet 50 mg PO DAILY Qty: 30 0RF (DME) Reset-O Digital Brandy (OUD) Misc See Rx Instructions .MEDSUPPLY Qty: 1 3RF Rx Instructions: As directed (3-4 times a week) 84 days buprenorphine-naloxone [Suboxone] 12-3 mg film 1 film sublingual Q24H Qty: 7 0RF
[2023-03-23 01:01] LABS: Anion Gap 18 (12-20); Blood Urea Nitrogen 19 mg/dL (9-16); Calcium 9.6 mg/dL (8.4-10.2); Carbon Dioxide 21 mmol/L (22-29); Chloride 105 mmol/L (96-108); Creatinine Clr Calc Pharmacy 103.9; Estimated Glomerular Filt Rate > 60; Ethanol < 10 mg/dL; Glucose Random 158 mg/dL (60-115); Potassium 3.8 mmol/L (3.3-5.1); Sodium 140 mmol/L (135-145)
--- NOTE | 2023-03-23 02:56 | PC.NURSE ---
Ot A&O, ambulating with steady gait, demanding to be discharged. Discussed with . Awaiting orders.
--- NOTE | 2023-03-23 02:58 | PC.NURSE ---
Patient refused providing urine specimen for WINTERS. Patient denies using substances/ recreational drugs. Dr. Post notified.
--- NOTE | 2023-03-23 03:32 | PC.NURSE ---
Pt received narcan and education on how to use. All belongings returned to patient, instructions given and patient verbalized understanding. Pt alert and oriented, ambulatory, escorted by this RN.
== END 2023-03-23 03:20 | disposition home or self-care (01) ==
PROVIDERS: Emergency Provider Emergency Medicine
DX: T51.0X1A Toxic effect of ethanol, accidental (unintentional), initial encounter (principal); Y92.9 Unspecified place or not applicable; Z79.899 Other long term (current) drug therapy; Z71.41 Alcohol abuse counseling and surveillance of alcoholic; F10.10 Alcohol abuse, uncomplicated; Y90.9 Presence of alcohol in blood, level not specified
CPT/HCPCS: 36415; 80048; 80307; 85027; 99284

== ENCOUNTER 2023-04-01 11:39 | Emergency (ER) | payer OTHER, SELFPAY ==
--- NOTE | ~2023-04-01 | XR_ITS ---
EXAMINATION: XR LUMBOSACRAL SPINE CLINICAL INFORMATION: Fall COMPARISON: None available. TECHNIQUE: Three views of the lumbosacral spine. FINDINGS: The vertebral bodies and posterior elements are normal. The disc spaces are preserved and the vertebral alignment is normal. The paraspinal soft tissues are normal. XR/XR lumbar spine 2-3V IMPRESSION: Unremarkable examination.
--- NOTE | ~2023-04-01 | XR_ITS ---
EXAMINATION: XR THORACIC SPINE CLINICAL INFORMATION: Fall COMPARISON: None available. TECHNIQUE: 3 views of the thoracic spine were obtained. FINDINGS: There is no fracture or bone destruction seen and the vertebral alignment is normal. There is no disc space narrowing. There is no abnormality of the paraspinal soft tissues. XR/XR thoracic spine 3V IMPRESSION: Unremarkable examination.
[2023-04-01 11:45] VITALS: BP 126/66; PULSE 62; RESP 18; TEMP 37.2; O2SAT 97; BMI 26.6
--- NOTE | 2023-04-01 11:46 | HE.ED.TEMP ---
[facility]LY [facility] Past Medical History Medical History Alcohol abuse Asthma Depression Opioid use disorder Social History Social History Household Members: Family Household Members Other:: Mom Housing: House Do you presently have visiting nurse or other home services: No Alcohol intake: current Alcohol intake frequency: 3 or more drinks per day Alcohol type: hard liquor Patient Tobacco Use Status: Current everyday Tobacco user Tobacco use type: Cigarette Cigarette Packs Per Day: 1 Cigarettes Per Day: 20.0 e-Cigarette/Vaping Use: Currently Using Substance Use Type: Marijuana and Painkillers Advance Directives: No service: No Current occupational status: employed FT.Exam Exam Narrative Exam Narrative: Last Vital Signs Temp 98.9 F 04/01/23 11:45 Pulse 62 04/01/23 11:45 Resp 18 04/01/23 11:45 BP 126/66 04/01/23 11:45 Pulse Ox 97 04/01/23 11:45 O2 Del Method Room Air 04/01/23 11:45 BMI result Body Mass Index 26.6 Course Course Course Narrative: 27-year-old male presents for evaluation of lower back pain after a fall. Patient reports that fell off a ladder approximately 5 ft yesterday. Denies hitting his head or losing consciousness. Denies numbness, tingling bladder or bowel incontinence. X-rays ordered Discharge Plan Discharge Clinical Impression: Contusion of lower back Patient Disposition: Home, Self-Care Instructions: Acute Low Back Pain (ED), Contusion in Adults (ED) Additional Instructions: Your x-rays did not show any broken bones. Your pain is most likely due to muscle strain and spasm. No bending, lifting or twisting. Use ice several times per day for 20 minutes at a time for the next 48 hours and then change to heat. Take medications as prescribed to help with pain and discomfort. Follow up with your Primary Care Doctor this week. If your pain worsens, if you develop new numbness, tingling, weakness, loss of function or incontinence call 911 or come back to the ER right away for evaluation. Prescriptions: New cyclobenzaprine 10 mg tablet 10 mg PO TID PRN (Reason: muscle spasm) Qty: 14 0RF ibuprofen 600 mg tablet 600 mg PO Q8H PRN (Reason: pain) Qty: 14 0RF lidocaine 5 % adhesive patch,medicated 1 patch topical DAILY Qty: 15 0RF Rx Instructions: leave on most painful area for up to 12 hrs No Action albuterol sulfate [Ventolin HFA] 90 mcg/actuation Hfa Aerosol Inhaler 1 puff inhalation RQ4H PRN (Reason: ASTHMA) Qty: 8.5 0RF fluticasone furoate-vilanterol [Breo Ellipta] 100-25 mcg/dose Blister With Device 1 ea inhalation RDAILY Qty: 1 0RF albuterol sulfate 2.5 mg /3 mL (0.083 %) solution for nebulization 3 ml inhalation Q4-6H PRN (Reason: wheezing) albuterol sulfate 90 mcg/actuation HFA aerosol inhaler 2 puff inhalation Q4-6H PRN (Reason: shortness of breath or wheezing) Qty: 6.7 3RF Rx Instructions: May dispense medication equivalent accepted by patient's insurance albuterol sulfate 2.5 mg /3 mL (0.083 %) solution for nebulization 2.5 mg inhalation Q4-6H PRN (Reason: shortness of breath or wheezing) Qty: 180 2RF Rx Instructions: May dispense medication equivalent accepted by patient's insurance prednisone 20 mg tablet 40 mg PO DAILY 5 Days Qty: 10 0RF doxycycline monohydrate 100 mg capsule 100 mg PO BID 10 Days Qty: 20 0RF prednisone 20 mg tablet 20 mg PO BID Qty: 10 0RF albuterol sulfate 90 mcg/actuation HFA aerosol inhaler 1 inh inhalation QID PRN (Reason: shortness of breath or wheezing) Qty: 8.5 0RF azithromycin [Zithromax Z-Gustavo] 250 mg tablet See Rx Instructions .ROUTE .COMPLEX Qty: 6 0RF Rx Instructions: For 250 mg dose pack: take 500 mg today (day 1), then 250 mg for 4 days (days 2-5) naloxone [Narcan] 4 mg/actuation spray,non-aerosol 4 mg intranasal Q2M PRN (Reason: opioid overdose) Qty: 2 0RF Rx Instructions: spray 1 dose into ONE nostril; alternate nostrils w each dose until help arrives sertraline 25 mg tablet 50 mg PO DAILY Qty: 30 0RF (DME) Reset-O Digital Brandy (OUD) Misc See Rx Instructions .MEDSUPPLY Qty: 1 3RF Rx Instructions: As directed (3-4 times a week) 84 days buprenorphine-naloxone [Suboxone] 12-3 mg film 1 film sublingual Q24H Qty: 7 0RF Referrals: [facility] [Primary Care Provider] - Stand Alone Forms: Work/School Release Interventions: ED Discharge Assessment Last Done: 04/01/23 13:49 Discharge Date/Time: 04/01/23 13:49
--- NOTE | 2023-04-01 14:30 | ED.BACK ---
HPI - Back Pain/Injury General Chief Complaint: Back Pain/Injury Stated Complaint: FALL / BACK PAIN Time Seen by Provider: 04/01/23 13:18 Source: patient Mode of arrival: ambulatory Limitations: no limitations History of Present Illness HPI Narrative: 27-year-old male with history of asthma, depression, alcohol use, opioid use disorder who presents to the ER for evaluation of low back pain after he fell off of a 5 ft ladder yesterday while cutting branches at work. Patient states he fell onto his back. He reports pain in his middle and lower back, worse with movement and palpation. He denies any abdominal pain or chest pain. He did not hit his head or lose consciousness. He is not on anticoagulation. He is able to ambulate normally. Denies any urinary or bowel incontinence. No numbness or tingling to his lower or upper extremities. He states when he got up this morning the pain was worse, when trying to get out of bed so he came to the ER for evaluation. MD elicited complaint: back injury and fall Pertinent past history: recent trauma Onset (ago): day(s) (1) Timing: progressively worsening Severity: moderate Quality: stabbing Location: lumbar spine, thoracic spine, right lower back and left lower back Radiation: none Exacerbating factors: movement Relieving factors: immobilization and supine Context: fall Associated symptoms: denies other symptoms Work related injury: Yes Related Data Home Medications Medication Instructions Recorded Confirmed albuterol sulfate 2.5 mg/3 mL 3 ml inhalation Q4-6H PRN wheezing 09/04/22 09/04/22 (0.083 %) solution for nebulization Previous Rx's Medication Instructions Recorded albuterol sulfate 90 mcg/actuation 1 puff inhalation RQ4H PRN ASTHMA 07/09/22 aerosol inhaler (Ventolin HFA) #8.5 grams fluticasone furoate 100 1 ea inhalation RDAILY #1 ea 07/09/22 mcg-vilanterol 25 mcg/dose inhalation powder (Breo Ellipta) naloxone 4 mg/actuation nasal 4 mg intranasal Q2M PRN opioid 09/08/22 spray (Narcan) overdose #2 ea sertraline 25 mg tablet 50 mg PO DAILY #30 tabs 09/23/22 digital therapeutics, OUD (Reset-O #1 ea 09/30/22 Digital Brandy (OUD)) buprenorphine 12 mg-naloxone 3 mg 1 film sublingual Q24H #7 ea 10/07/22 sublingual film (Suboxone) albuterol sulfate 2.5 mg/3 mL 2.5 mg (3 mL) inhalation Q4-6H PRN 10/23/22 (0.083 %) solution for nebulization shortness of breath or wheezing #180 mL albuterol sulfate 90 mcg/actuation 2 puff inhalation Q4-6H PRN 10/23/22 aerosol inhaler shortness of breath or wheezing #6.7 grams doxycycline monohydrate 100 mg 100 mg PO BID 10 days #20 caps 10/23/22 capsule prednisone 20 mg tablet 40 mg PO DAILY 5 days #10 tabs 10/23/22 albuterol sulfate 90 mcg/actuation 1 inh inhalation QID PRN shortness 11/01/22 aerosol inhaler of breath or wheezing #8.5 grams azithromycin 250 mg tablet See Rx Instructions PO .COMPLEX #6 11/01/22 (Zithromax Z-Gustavo) tabs prednisone 20 mg tablet 20 mg PO BID #10 tabs 11/01/22 cyclobenzaprine 10 mg tablet 10 mg PO TID PRN muscle spasm #14 04/01/23 tabs ibuprofen 600 mg tablet 600 mg PO Q8H PRN pain #14 tabs 04/01/23 lidocaine 5 % topical patch 1 patch topical DAILY #15 ea 04/01/23 Allergies Allergy/AdvReac Type Severity Reaction Status Date / Time seafood Allergy Severe Anaphylaxis Verified 04/01/23 11:44 Penicillins [PENICILLINS] Allergy Intermediate RASH Verified 04/01/23 11:44 Review of Systems Review of Systems: Yes all other systems are reviewed and are negative FOR[facility] Past Medical History Medical History Alcohol abuse Asthma Depression Opioid use disorder Social History Social History Household Members: Family Household Members Other:: Mom Housing: House Do you presently have visiting nurse or other home services: No Alcohol intake: current Alcohol intake frequency: 3 or more drinks per day Alcohol type: hard liquor Patient Tobacco Use Status: Current everyday Tobacco user Tobacco use type: Cigarette Cigarette Packs Per Day: 1 Cigarettes Per Day: 20.0 e-Cigarette/Vaping Use: Currently Using Substance Use Type: Marijuana and Painkillers Advance Directives: No service: No Current occupational status: employed Physical Exam Vital Signs: Vital Signs: Last Vital Signs Temp 98.9 F 04/01/23 11:45 Pulse 62 04/01/23 11:45 Resp 18 04/01/23 11:45 BP 126/66 04/01/23 11:45 Pulse Ox 97 04/01/23 11:45 O2 Del Method Room Air 04/01/23 11:45 BMI result Body Mass Index 26.6 Appearance: Alert. Oriented X3. No acute distress. Head: normocephalic, atraumatic. Eyes: Pupils equal, round and reactive to light. ENT: Pharynx normal. No tonsillar swelling or exudate. Neck: Normal inspection. Neck supple. CVS: Normal heart rate and rhythm. Pulses normal. Respiratory: No respiratory distress. Breath sounds normal. Abdomen: Soft and nontender. +BS x4 Back: normal inspection, no ecchymosis on the flank. mild midline tenderness to the thoracic spine with more moderate tenderness to the lumbar spine throughout, soft tissue tenderness of the paraspinous muscles throughout, normal range of motion of the spine Skin: Skin warm and dry. Normal skin color. Normal skin turgor. No rashes. Extremities: No lower extremity edema. No joint swelling. Neuro/psych: Oriented X 3. No motor deficit. No sensory deficit. CN II-XII intact. Normal speech and cognition. Medical Decision Making Medical Decision Making MDM Narrative: 27-year-old male presents to the ER for evaluation after he fell 5 ft off of a ladder yesterday. He reports back pain in the middle and lower back. Exam revealed midline tenderness so x-rays were performed which were negative for fractures. he is ambulatory. no red flag symptoms of LBP. most likely contusion and associated muscle spasm. will treat accordingly. stable for d/c home Differential Diagnosis Differential Diagnoses: The differential diagnosis associated with the presentation includes spinal fracture, compression fracture, contusion, less likely retroperitoneal hemorrhage, splenic injury or liver injury Independent Interpretation I performed an independent interpretation of an: Plain X-Ray Interpretation: no apprecaited fx of the thoracic or lumbar spines Radiology Impression Discussion of test interpretation with radiology: I have reviewed the radiologist's reading. Radiologist Impression: EXAMINATION: XR LUMBOSACRAL SPINE CLINICAL INFORMATION: Fall COMPARISON: None available. TECHNIQUE: Three views of the lumbosacral spine. FINDINGS: The vertebral bodies and posterior elements are normal. The disc spaces are preserved and the vertebral alignment is normal. The paraspinal soft tissues are normal. XR/XR lumbar spine 2-3V IMPRESSION: Unremarkable examination. EXAMINATION: XR THORACIC SPINE CLINICAL INFORMATION: Fall COMPARISON: None available. TECHNIQUE: 3 views of the thoracic spine were obtained. FINDINGS: There is no fracture or bone destruction seen and the vertebral alignment is normal. There is no disc space narrowing. There is no abnormality of the paraspinal soft tissues. XR/XR thoracic spine 3V IMPRESSION: Unremarkable examination. ? External Record Review External record reviewed: Prior outpatient labs and Prior outpatient radiology Tests considered The following testing was considered but not selected: CT scan abd/pelvis considered but given exam findings this was deferred today Prescription Management I considered prescription management with: Pain Medication and Other (muscle relaxers) Critical Care Time Critical Care Time Critical Care Time: No Discharge Plan Discharge Clinical Impression: Contusion of lower back Patient Disposition: Home, Self-Care Instructions: Acute Low Back Pain (ED), Contusion in Adults (ED) Additional Instructions: Your x-rays did not show any broken bones. Your pain is most likely due to muscle strain and spasm. No bending, lifting or twisting. Use ice several times per day for 20 minutes at a time for the next 48 hours and then change to heat. Take medications as prescribed to help with pain and discomfort. Follow up with your Primary Care Doctor this week. If your pain worsens, if you develop new numbness, tingling, weakness, loss of function or incontinence call 911 or come back to the ER right away for evaluation. Prescriptions: New cyclobenzaprine 10 mg tablet 10 mg PO TID PRN (Reason: muscle spasm) Qty: 14 0RF ibuprofen 600 mg tablet 600 mg PO Q8H PRN (Reason: pain) Qty: 14 0RF lidocaine 5 % adhesive patch,medicated 1 patch topical DAILY Qty: 15 0RF Rx Instructions: leave on most painful area for up to 12 hrs No Action albuterol sulfate [Ventolin HFA] 90 mcg/actuation Hfa Aerosol Inhaler 1 puff inhalation RQ4H PRN (Reason: ASTHMA) Qty: 8.5 0RF fluticasone furoate-vilanterol [Breo Ellipta] 100-25 mcg/dose Blister With Device 1 ea inhalation RDAILY Qty: 1 0RF albuterol sulfate 2.5 mg /3 mL (0.083 %) solution for nebulization 3 ml inhalation Q4-6H PRN (Reason: wheezing) albuterol sulfate 90 mcg/actuation HFA aerosol inhaler 2 puff inhalation Q4-6H PRN (Reason: shortness of breath or wheezing) Qty: 6.7 3RF Rx Instructions: May dispense medication equivalent accepted by patient's insurance albuterol sulfate 2.5 mg /3 mL (0.083 %) solution for nebulization 2.5 mg inhalation Q4-6H PRN (Reason: shortness of breath or wheezing) Qty: 180 2RF Rx Instructions: May dispense medication equivalent accepted by patient's insurance prednisone 20 mg tablet 40 mg PO DAILY 5 Days Qty: 10 0RF doxycycline monohydrate 100 mg capsule 100 mg PO BID 10 Days Qty: 20 0RF prednisone 20 mg tablet 20 mg PO BID Qty: 10 0RF albuterol sulfate 90 mcg/actuation HFA aerosol inhaler 1 inh inhalation QID PRN (Reason: shortness of breath or wheezing) Qty: 8.5 0RF azithromycin [Zithromax Z-Gustavo] 250 mg tablet See Rx Instructions .ROUTE .COMPLEX Qty: 6 0RF Rx Instructions: For 250 mg dose pack: take 500 mg today (day 1), then 250 mg for 4 days (days 2-5) naloxone [Narcan] 4 mg/actuation spray,non-aerosol 4 mg intranasal Q2M PRN (Reason: opioid overdose) Qty: 2 0RF Rx Instructions: spray 1 dose into ONE nostril; alternate nostrils w each dose until help arrives sertraline 25 mg tablet 50 mg PO DAILY Qty: 30 0RF (DME) Reset-O Digital Brandy (OUD) Misc See Rx Instructions .MEDSUPPLY Qty: 1 3RF Rx Instructions: As directed (3-4 times a week) 84 days buprenorphine-naloxone [Suboxone] 12-3 mg film 1 film sublingual Q24H Qty: 7 0RF Referrals: [place] [Primary Care Provider] - Stand Alone Forms: Work/School Release Interventions: ED Discharge Assessment Last Done: 04/01/23 13:49 Discharge Date/Time: 04/01/23 13:49
== END 2023-04-01 13:49 | disposition home or self-care (01) ==
PROVIDERS: Emergency Provider Emergency Medicine Emergency Medical Services
DX: S30.0XXA Contusion of lower back and pelvis, initial encounter (principal); W11.XXXA Fall on and from ladder, initial encounter; Y93.89 Activity, other specified; Y92.89 Other specified places as the place of occurrence of the external cause; Y99.0 Civilian activity done for income or pay
CPT/HCPCS: 72072; 72100; 99283

== ENCOUNTER 2023-04-02 03:19 | Emergency (ER) | payer OTHER, SELFPAY ==
[2023-04-02 03:28] VITALS: BP 128/74; PULSE 101; RESP 16; TEMP 37; O2SAT 94; BMI 28.1
--- NOTE | 2023-04-02 03:36 | ED.OVERDOSE ---
HPI - Overdose General Chief Complaint: Overdose Stated Complaint: Drug Use Time Seen by Provider: 04/02/23 03:32 Source: patient Mode of arrival: EMS Limitations: no limitations History of Present Illness HPI Narrative: Patient comes to the emergency room via ambulance. Patient's mother called EMS because the patient was acting erratic, patient known to use drugs. On arrival, patient's oxygen saturation in the low 70s, patient awake, diaphoretic. Denies suicidal homicidal ideation Related Data Home Medications Medication Instructions Recorded Confirmed albuterol sulfate 2.5 mg/3 mL 3 ml inhalation Q4-6H PRN wheezing 09/04/22 09/04/22 (0.083 %) solution for nebulization Previous Rx's Medication Instructions Recorded albuterol sulfate 90 mcg/actuation 1 puff inhalation RQ4H PRN ASTHMA 07/09/22 aerosol inhaler (Ventolin HFA) #8.5 grams fluticasone furoate 100 1 ea inhalation RDAILY #1 ea 07/09/22 mcg-vilanterol 25 mcg/dose inhalation powder (Breo Ellipta) naloxone 4 mg/actuation nasal 4 mg intranasal Q2M PRN opioid 09/08/22 spray (Narcan) overdose #2 ea sertraline 25 mg tablet 50 mg PO DAILY #30 tabs 09/23/22 digital therapeutics, OUD (Reset-O #1 ea 09/30/22 Digital Brandy (OUD)) buprenorphine 12 mg-naloxone 3 mg 1 film sublingual Q24H #7 ea 10/07/22 sublingual film (Suboxone) albuterol sulfate 2.5 mg/3 mL 2.5 mg (3 mL) inhalation Q4-6H PRN 10/23/22 (0.083 %) solution for nebulization shortness of breath or wheezing #180 mL albuterol sulfate 90 mcg/actuation 2 puff inhalation Q4-6H PRN 10/23/22 aerosol inhaler shortness of breath or wheezing #6.7 grams doxycycline monohydrate 100 mg 100 mg PO BID 10 days #20 caps 10/23/22 capsule prednisone 20 mg tablet 40 mg PO DAILY 5 days #10 tabs 10/23/22 albuterol sulfate 90 mcg/actuation 1 inh inhalation QID PRN shortness 11/01/22 aerosol inhaler of breath or wheezing #8.5 grams azithromycin 250 mg tablet See Rx Instructions PO .COMPLEX #6 11/01/22 (Zithromax Z-Gustavo) tabs prednisone 20 mg tablet 20 mg PO BID #10 tabs 11/01/22 cyclobenzaprine 10 mg tablet 10 mg PO TID PRN muscle spasm #14 04/01/23 tabs ibuprofen 600 mg tablet 600 mg PO Q8H PRN pain #14 tabs 04/01/23 lidocaine 5 % topical patch 1 patch topical DAILY #15 ea 04/01/23 Allergies Allergy/AdvReac Type Severity Reaction Status Date / Time seafood Allergy Severe Anaphylaxis Verified 04/01/23 11:44 Penicillins [PENICILLINS] Allergy Intermediate RASH Verified 04/01/23 11:44 Review of Systems Review of Systems: Constitutional : No Weight loss, No Fever, No Chills, No Night Sweats, No Fatigue, No Malaise ENT/Mouth : No Hearing loss, No Ear Pain, No Nasal Congestion, No Sinus Pain, No Hoarseness, No sore throat, No Rhinorrhea, No Swallowing Difficulty Eyes: No Eye Pain, No Swelling, No Redness, No Foreign Body, No Discharge, No Vision Changes Cardiovascular : No Chest Pain, No SOB, No Dyspnea on Exertion, No Orthopnea, No Edema, No Palpitations Respiratory : No Cough, No Sputum, No Wheezing, No Smoke Exposure, No Dyspnea Gastrointestinal : No Nausea, No Vomiting, No Diarrhea, No Constipation, No abdominal Pain, No Hematochezia, No Melena Genitourinary : no irregular bleeding, No Dysuria, No Urinary Frequency, No Hematuria, No Urinary Incontinence, No Urgency, No Flank Pain, No Urinary Flow Changes, No Hesitancy Musculoskeletal : No joint pain, No Myalgias, No Joint Swelling Skin : No Skin Lesions, No rash Neuro : No Weakness, No Numbness, No Paresthesias, No Loss of Consciousness, No Dizziness, No Headache Psych : No Anxiety/Panic, No Depression, No SI/HI/AH/VH, admits to drug use Heme/Lymph: No Bruising, No Bleeding,No Lymphadenopathy Endocrine : No Polyuria, No Polydipsia, No Temperature Intolerance PMFSH Past Medical History Medical History Alcohol abuse Asthma Depression Opioid use disorder Social History Social History Household Members: Family Household Members Other:: Mom Housing: House Do you presently have visiting nurse or other home services: No Alcohol intake: current Alcohol intake frequency: 3 or more drinks per day Alcohol type: hard liquor Patient Tobacco Use Status: Current everyday Tobacco user Tobacco use type: Cigarette Cigarette Packs Per Day: 1 Cigarettes Per Day: 20.0 e-Cigarette/Vaping Use: Currently Using Substance Use Type: Marijuana and Painkillers Advance Directives: No Advance Directives Information Provided: No service: No Current occupational status: employed Physical Exam Vital Signs: Vital Signs: Last Vital Signs Temp 98.1 F 04/02/23 04:41 Pulse 77 04/02/23 04:41 Resp 12 04/02/23 04:41 BP 118/70 04/02/23 04:41 Pulse Ox 98 04/02/23 04:41 O2 Del Method Nasal Cannula 04/02/23 04:41 O2 Flow Rate 4 04/02/23 04:41 BMI result Body Mass Index 28.1 Const: Other: Appearance: Alert. Oriented X3. No acute distress. Eyes: Pupils equal, round and reactive to light. ENT: Pharynx normal. Neck: Normal inspection. Neck supple. No lymph nodes noted. No crepitus CVS: Normal heart rate and rhythm. Pulses normal. Normal S1 and S2 Respiratory: No respiratory distress. Breath sounds normal. No Wheezing. No rales Abdomen: Soft and nontender. No rigidity. No distention. Skin: Clammy, warm Extremities: No lower extremity edema. No Lacerations. No Rash Neuro: Oriented X 3. No motor deficit. No sensory deficit. Moving all extremities. No slurred speech. CN 2 through 12 grossly intact Psych: calm, cooperative, normal affect Course Course Course Narrative: -patient on 2 L nasal cannula, oxygen saturation improved from 70% to 96%. Patient awake and alert, refusing Narcan. Discussed with the patient that if he becomes unconscious or if his oxygen drops and he becomes incoherent , he will get Narcan -denies SI or HI, Section 12 not indicated - Medical Decision Making Medical Decision Making MDM Narrative: -physician observation started at 03:30 -patient awake, alert, ambulatory without assistance, oxygen saturation 98% on room air. Patient feeling better, states that he would like to be discharged home. -patient given home Narcan -patient denies SI or HI -declined SUDe eval Differential Diagnosis Differential Diagnoses: The differential diagnosis associated with the presentation includes (Substance abuse, SI, depression) Admission/Observation Consideration of admission/observation: Escalation of care including admission/observation considered (Patient was under observation in the emergency room, patient awake and alert, coherent alert and oriented x3) Critical Care Time Critical Care Time Critical Care Time: Yes Total Critical Care Time: 60 Attestation: I have personally provided critical care time. Time includes review of lab data, radiology results, discussion with consultants, and monitoring for potential decompensation. Intervention performed as documented. Discharge Plan Discharge Clinical Impression: Polysubstance abuse Patient Disposition: Home, Self-Care Instructions: Polysubstance Abuse (ED) Additional Instructions: Please follow-up with your primary care physician tomorrow. If you have any worsening or new symptoms, please return to the emergency room or call 911 Prescriptions: No Action albuterol sulfate [Ventolin HFA] 90 mcg/actuation Hfa Aerosol Inhaler 1 puff inhalation RQ4H PRN (Reason: ASTHMA) Qty: 8.5 0RF fluticasone furoate-vilanterol [Breo Ellipta] 100-25 mcg/dose Blister With Device 1 ea inhalation RDAILY Qty: 1 0RF albuterol sulfate 2.5 mg /3 mL (0.083 %) solution for nebulization 3 ml inhalation Q4-6H PRN (Reason: wheezing) albuterol sulfate 90 mcg/actuation HFA aerosol inhaler 2 puff inhalation Q4-6H PRN (Reason: shortness of breath or wheezing) Qty: 6.7 3RF Rx Instructions: May dispense medication equivalent accepted by patient's insurance albuterol sulfate 2.5 mg /3 mL (0.083 %) solution for nebulization 2.5 mg inhalation Q4-6H PRN (Reason: shortness of breath or wheezing) Qty: 180 2RF Rx Instructions: May dispense medication equivalent accepted by patient's insurance prednisone 20 mg tablet 40 mg PO DAILY 5 Days Qty: 10 0RF doxycycline monohydrate 100 mg capsule 100 mg PO BID 10 Days Qty: 20 0RF prednisone 20 mg tablet 20 mg PO BID Qty: 10 0RF albuterol sulfate 90 mcg/actuation HFA aerosol inhaler 1 inh inhalation QID PRN (Reason: shortness of breath or wheezing) Qty: 8.5 0RF azithromycin [Zithromax Z-Gustavo] 250 mg tablet See Rx Instructions .ROUTE .COMPLEX Qty: 6 0RF Rx Instructions: For 250 mg dose pack: take 500 mg today (day 1), then 250 mg for 4 days (days 2-5) cyclobenzaprine 10 mg tablet 10 mg PO TID PRN (Reason: muscle spasm) Qty: 14 0RF ibuprofen 600 mg tablet 600 mg PO Q8H PRN (Reason: pain) Qty: 14 0RF lidocaine 5 % adhesive patch,medicated 1 patch topical DAILY Qty: 15 0RF Rx Instructions: leave on most painful area for up to 12 hrs naloxone [Narcan] 4 mg/actuation spray,non-aerosol 4 mg intranasal Q2M PRN (Reason: opioid overdose) Qty: 2 0RF Rx Instructions: spray 1 dose into ONE nostril; alternate nostrils w each dose until help arrives sertraline 25 mg tablet 50 mg PO DAILY Qty: 30 0RF (DME) Reset-O Digital Brandy (OUD) Misc See Rx Instructions .MEDSUPPLY Qty: 1 3RF Rx Instructions: As directed (3-4 times a week) 84 days buprenorphine-naloxone [Suboxone] 12-3 mg film 1 film sublingual Q24H Qty: 7 0RF
[2023-04-02 04:41] VITALS: BP 118/70; PULSE 77; RESP 12; TEMP 36.7; O2SAT 98
== END 2023-04-02 05:53 | disposition home or self-care (01) ==
PROVIDERS: Emergency Provider Emergency Medicine
DX: F19.10 Other psychoactive substance abuse, uncomplicated (principal); F17.210 Nicotine dependence, cigarettes, uncomplicated; Z71.6 Tobacco abuse counseling; Z79.899 Other long term (current) drug therapy
CPT/HCPCS: 99284

== ENCOUNTER 2023-04-28 17:53 | Emergency (ER) | payer OTHER, SELFPAY ==
[2023-04-28 18:13] VITALS: BP 134/78; PULSE 72; RESP 19; TEMP 36.6; O2SAT 98; BMI 24.2
--- NOTE | 2023-04-28 18:16 | ED.GENADULT ---
HPI - General Adult General Chief complaint: General Medical Stated complaint: L hand numbness, no injury Time Seen by Provider: 04/29/23 07:33 Source: patient Mode of arrival: ambulatory Limitations: no limitations History of Present Illness HPI narrative: 27-year-old male with history of anxiety, asthma, alcohol and drug use who presents to the ER for evaluation of left hand numbness and weakness for the last 3 weeks. He states he is right-hand dominant. He does not work. He states the numbness and tingling sensation is mostly the whole entire palmar aspect of the left hand but it is worse in the pinky and ring fingers. He states it is worse at night. He states it is worse when he tries to smoke cigarettes or do anything with the left hand. He denies any radiation of the numbness or tingling into the forearm. No pain. He states the last couple of weeks it has been getting worse. He also reports some newer onset numbness in the ring and pinky fingers on the right side. This is intermittent and comes and goes. No weakness. He denies any injury. MD complaint: Hand numbness and tingling Onset (ago): week(s) (3) Location: left, right and upper extremity Radiation: non-radiation Severity: moderate Pain Consistency: constant Relieving factors: none Exacerbating factors: other (night, use of hand) Associated symptoms: denies other symptoms Treatments prior to arrival: none Related Data Home Medications Medication Instructions Recorded Confirmed albuterol sulfate 2.5 mg/3 mL 3 ml inhalation Q4-6H PRN wheezing 09/04/22 09/04/22 (0.083 %) solution for nebulization Previous Rx's Medication Instructions Recorded albuterol sulfate 90 mcg/actuation 1 puff inhalation RQ4H PRN ASTHMA 07/09/22 aerosol inhaler (Ventolin HFA) #8.5 grams fluticasone furoate 100 1 ea inhalation RDAILY #1 ea 07/09/22 mcg-vilanterol 25 mcg/dose inhalation powder (Breo Ellipta) naloxone 4 mg/actuation nasal 4 mg intranasal Q2M PRN opioid 09/08/22 spray (Narcan) overdose #2 ea sertraline 25 mg tablet 50 mg (2 x 25 mg) PO DAILY #30 tabs 09/23/22 digital therapeutics, OUD (Reset-O #1 ea 09/30/22 Digital Brandy (OUD)) buprenorphine 12 mg-naloxone 3 mg 1 film sublingual Q24H #7 ea 10/07/22 sublingual film (Suboxone) albuterol sulfate 2.5 mg/3 mL 2.5 mg (3 mL) inhalation Q4-6H PRN 10/23/22 (0.083 %) solution for nebulization shortness of breath or wheezing #180 mL albuterol sulfate 90 mcg/actuation 2 puff inhalation Q4-6H PRN 10/23/22 aerosol inhaler shortness of breath or wheezing #6.7 grams doxycycline monohydrate 100 mg 100 mg PO BID 10 days #20 caps 10/23/22 capsule prednisone 20 mg tablet 40 mg (2 x 20 mg) PO DAILY 5 days 10/23/22 #10 tabs albuterol sulfate 90 mcg/actuation 1 inh inhalation QID PRN shortness 11/01/22 aerosol inhaler of breath or wheezing #8.5 grams azithromycin 250 mg tablet See Rx Instructions PO .COMPLEX #6 11/01/22 (Zithromax Z-Gustavo) tabs prednisone 20 mg tablet 20 mg PO BID #10 tabs 11/01/22 cyclobenzaprine 10 mg tablet 10 mg PO TID PRN muscle spasm #14 04/01/23 tabs ibuprofen 600 mg tablet 600 mg PO Q8H PRN pain #14 tabs 04/01/23 lidocaine 5 % topical patch 1 patch topical DAILY #15 ea 04/01/23 naproxen 500 mg tablet 500 mg PO BID PRN pain #20 tabs 04/29/23 Allergies Allergy/AdvReac Type Severity Reaction Status Date / Time seafood Allergy Severe Anaphylaxis Verified 04/01/23 11:44 Penicillins [PENICILLINS] Allergy Intermediate RASH Verified 04/01/23 11:44 Review of Systems Review of Systems: Yes all other systems are reviewed and are negative PMFSH Past Medical History Medical History Alcohol abuse Asthma Depression Opioid use disorder Social History Social History Household Members: Family Household Members Other:: Mom Housing: House Do you presently have visiting nurse or other home services: No Alcohol intake: current Alcohol intake frequency: a few times a week Alcohol type: hard liquor Patient Tobacco Use Status: Current everyday Tobacco user Tobacco use type: Cigarette Cigarette Packs Per Day: 1 Cigarettes Per Day: 20.0 Smoked in Last 30 Days: Yes e-Cigarette/Vaping Use: Currently Using Use of substances other than those prescribed or required for medical reasons: Yes Substance Use Type: Marijuana Substance Use Frequency: Socially Advance Directives: No Advance Directives Information Provided: No service: No Current occupational status: employed Physical Exam ED Vital Signs: Vital Signs - 24 hr 04/28/23 18:13 04/28/23 22:09 Temperature 97.8 F 98.6 F Pulse Rate 72 70 Respiratory Rate 19 18 Blood Pressure 134/78 138/76 Pulse Oximetry 98 97 Oxygen Delivery Method Room Air Room Air BMI result Body Mass Index 24.2 Appearance: Alert. Oriented X3. No acute distress. HEENT: normal inspection CVS: Normal heart rate and rhythm. Pulses normal. Respiratory: No respiratory distress. Skin: Skin warm and dry. Normal skin color. Normal skin turgor. No rashes. Extremities: Normal inspection of the bilateral hands. Equal optical glass etcher strength bilaterally. On the palmar aspect of the left hand there is a subjective sensory deficit, he is able to tell the difference between light and sharp touch. He can fully oppose the thumb to each finger, some difficulty with opposition to the 5th digit. Normal strength with finger abduction on the left hand. 2+ radial pulse. Negative Tinel sign Neuro: Oriented X 3. Course Course Course Narrative: RME- 27 year old female presents for evaluation of bilateral hand numbness that has been presents for several weeks. Plan for labs including thyroid studies, drug screen Medical Decision Making Medical Decision Making MDM Narrative: 27-year-old male with a history of depression, anxiety, asthma, drug and alcohol use who presents to the ER for evaluation of left hand paresthesias. He states he has numbness and tingling on the palmar aspect of the left hand that is constant. He reports some subjective weakness. No weakness on examination. He states the sensations are worse in the 4th and 5th digits. He is starting to get some symptoms on the right hand as well. His lab workup today was unremarkable including normal TSH and electrolytes. Did not give a urine sample for drug screen. Exam is consistent with possible carpal tunnel syndrome. Will place in a velcro wrist splint and have him follow-up with hand specialist for further evaluation and treatment. Will start NSAIDs. Patient agrees with plan and will call for an appointment. Differential Diagnosis Differential Diagnoses: The differential diagnosis associated with the presentation includes Anxiety, peripheral neuropathy, carpal tunnel syndrome, electrolyte abnormality, nerve injury, adverse reaction to drug use, doubt cva Lab Data MDM Lab Attestation statement: I reviewed the patient's lab results. 04/28/23 18:40 04/28/23 18:40 Labs: Lab Results 04/28/23 Range/Units 18:40 WBC 7.3 (4.8-10.8) X10*3/uL RBC 4.74 (4.60-5.80) X10*6/uL Hgb 13.7 L (14.0-18.0) g/dl Hct 39.5 L (42.0-52.0) % MCV 83.3 (80.0-98.0) fL MCH 28.9 (27.0-33.0) pg MCHC 34.7 (31.0-36.0) g/dl RDW 12.5 (11.0-16.0) % Plt Count 278 (160-400) X10*3/uL MPV 10.5 (9.4-12.4) fL Immature Gran % (Auto) 0.1 (0.0-0.4) % Neut % (Auto) 65.0 (45-73) % Lymph % (Auto) 21.9 (20-40) % Wilkinson % (Auto) 11.1 H (2-11) % Eos % (Auto) 1.5 (0-4) % Baso % (Auto) 0.4 (0-2) % Lymph # (Auto) 1.6 (1.2-4.9) X10*3/uL Wilkinson # (Auto) 0.8 (0.1-1.2) X10*3/uL Eos # (Auto) 0.1 (0.0-0.4) X10*3/uL Baso # (Auto) 0.0 (0.0-0.2) X10*3/uL Abs Immat Gran (auto) 0.01 (0.00-0.03) X10*3/uL Absolute Neuts (auto) 4.8 (2.0-8.3) x10*3/uL Absolute Nucleated RBC 0.000 (0.0-0.012) X10*3/uL Nucleated RBC % (auto) 0.0 (0.0-0.2) /100WBC Sodium 142 (135-145) mmol/L Potassium 3.6 (3.3-5.1) mmol/L Chloride 106 (96-108) mmol/L Carbon Dioxide 26 (22-29) mmol/L Anion Gap 14 (12-20) BUN 8 L (9-16) mg/dL Creatinine 0.96 (0.5-1.4) mg/dL Estim Creat Clear Calc 113.5 Estimated GFR > 60 Random Glucose 104 (60-115) mg/dL Calcium 9.3 (8.4-10.2) mg/dL Phosphorus 3.4 (2.7-4.5) mg/dL Magnesium 1.9 (1.6-2.6) mg/dL Total Bilirubin 0.6 (0.0-1.0) mg/dL AST 17 (5-37) U/L ALT 11 (0-40) U/L Alkaline Phosphatase 95 (39-117) U/L Total Protein 7.3 (6.5-8.0) g/dL Albumin 4.4 (3.5-5.0) g/dL TSH 0.31 L (0.32-4.0) uIU/mL Free T4 1.06 (0.71-1.85) ng/dL External Record Review External record reviewed: Outpatient record and Prior outpatient labs Tests considered The following testing was considered but not selected: xr hands considered, deferred today given no acute trauma Prescription Management I considered prescription management with: Pain Medication Chronic Conditions Patient?s care impacted by: Other (anxiety, drug use) Critical Care Time Critical Care Time Critical Care Time: No Discharge Plan Discharge Clinical Impression: Hand paresthesia Patient Disposition: Home, Self-Care Instructions: Paresthesia (ED), Carpal Tunnel Surgery (DC) Additional Instructions: Your lab workup today was unremarkable. Your symptoms may be due to carpal tunnel syndrome Recommend wearing the provided wrist splint. Wear it when you sleep Take the prescribed anti-inflammatory medication to help with swelling Recommend following up with the Hand Specialist for further evaluation and treatment - call for an appointment If you develop new or worsening symptoms call 911 or come back to the ER for further evaluation. Prescriptions: New naproxen 500 mg tablet 500 mg PO BID PRN (Reason: pain) Qty: 20 0RF No Action albuterol sulfate [Ventolin HFA] 90 mcg/actuation Hfa Aerosol Inhaler 1 puff inhalation RQ4H PRN (Reason: ASTHMA) Qty: 8.5 0RF fluticasone furoate-vilanterol [Breo Ellipta] 100-25 mcg/dose Blister With Device 1 ea inhalation RDAILY Qty: 1 0RF albuterol sulfate 2.5 mg /3 mL (0.083 %) solution for nebulization 3 ml inhalation Q4-6H PRN (Reason: wheezing) albuterol sulfate 90 mcg/actuation HFA aerosol inhaler 2 puff inhalation Q4-6H PRN (Reason: shortness of breath or wheezing) Qty: 6.7 3RF Rx Instructions: May dispense medication equivalent accepted by patient's insurance albuterol sulfate 2.5 mg /3 mL (0.083 %) solution for nebulization 2.5 mg inhalation Q4-6H PRN (Reason: shortness of breath or wheezing) Qty: 180 2RF Rx Instructions: May dispense medication equivalent accepted by patient's insurance prednisone 20 mg tablet 40 mg PO DAILY 5 Days Qty: 10 0RF doxycycline monohydrate 100 mg capsule 100 mg PO BID 10 Days Qty: 20 0RF prednisone 20 mg tablet 20 mg PO BID Qty: 10 0RF albuterol sulfate 90 mcg/actuation HFA aerosol inhaler 1 inh inhalation QID PRN (Reason: shortness of breath or wheezing) Qty: 8.5 0RF azithromycin [Zithromax Z-Gustavo] 250 mg tablet See Rx Instructions .ROUTE .COMPLEX Qty: 6 0RF Rx Instructions: For 250 mg dose pack: take 500 mg today (day 1), then 250 mg for 4 days (days 2-5) cyclobenzaprine 10 mg tablet 10 mg PO TID PRN (Reason: muscle spasm) Qty: 14 0RF ibuprofen 600 mg tablet 600 mg PO Q8H PRN (Reason: pain) Qty: 14 0RF lidocaine 5 % adhesive patch,medicated 1 patch topical DAILY Qty: 15 0RF Rx Instructions: leave on most painful area for up to 12 hrs naloxone [Narcan] 4 mg/actuation spray,non-aerosol 4 mg intranasal Q2M PRN (Reason: opioid overdose) Qty: 2 0RF Rx Instructions: spray 1 dose into ONE nostril; alternate nostrils w each dose until help arrives sertraline 25 mg tablet 50 mg PO DAILY Qty: 30 0RF (DME) Reset-O Digital Brandy (OUD) Misc See Rx Instructions .MEDSUPPLY Qty: 1 3RF Rx Instructions: As directed (3-4 times a week) 84 days buprenorphine-naloxone [Suboxone] 12-3 mg film 1 film sublingual Q24H Qty: 7 0RF Referrals: [facility] [place] Orthopedic Surgeons [Provider Group] (hand paresthesias, ?carpal tunnel) Interventions: ED Discharge Assessment Last Done: 04/29/23 08:06 Discharge Date/Time: 04/29/23 08:07
[2023-04-28 18:45] LABS: MANUAL DIFF FLAG NO
[2023-04-28 18:46] LABS: Basophils Percent Auto 0.4 % (0-2); Eosinophils Absolute Auto 0.1 X10*3/uL (0.0-0.4); Eosinophils Percent Auto 1.5 % (0-4); Hematocrit 39.5 % (42.0-52.0); Hemoglobin 13.7 g/dl (14.0-18.0); Imm Gran Abs Auto 0.01 X10*3/uL (0.00-0.03); Imm Gran Pct Auto 0.1 % (0.0-0.4); Lymphocytes Absolute Auto 1.6 X10*3/uL (1.2-4.9); Lymphocytes Percent Auto 21.9 % (20-40); Mean Corpuscular HGB Conc 34.7 g/dl (31.0-36.0); Mean Corpuscular Hemoglobin 28.9 pg (27.0-33.0); Mean Corpuscular Volume 83.3 fL (80.0-98.0); Mean Platelet Volume 10.5 fL (9.4-12.4); Monocytes Absolute Auto 0.8 X10*3/uL (0.1-1.2); Monocytes Percent Auto 11.1 % (2-11); Neutrophils Absolute Auto 4.8 x10*3/uL (2.0-8.3); Platelet Count 278 X10*3/uL (160-400); Red Blood Count 4.74 X10*6/uL (4.60-5.80); Red Cell Distribution Width 12.5 % (11.0-16.0); White Blood Count 7.3 X10*3/uL (4.8-10.8)
[2023-04-28 19:08] LABS: Alanine Aminotransferase 11 U/L (0-40); Albumin Level 4.4 g/dL (3.5-5.0); Alkaline Phosphatase 95 U/L (39-117); Anion Gap 14 (12-20); Aspartate Amino Transferase 17 U/L (5-37); Bilirubin Total 0.6 mg/dL (0.0-1.0); Blood Urea Nitrogen 8 mg/dL (9-16); Calcium 9.3 mg/dL (8.4-10.2); Carbon Dioxide 26 mmol/L (22-29); Chloride 106 mmol/L (96-108); Creatinine Clr Calc Pharmacy 113.5; Estimated Glomerular Filt Rate > 60; Glucose Random 104 mg/dL (60-115); Magnesium 1.9 mg/dL (1.6-2.6); Phosphorus 3.4 mg/dL (2.7-4.5); Potassium 3.6 mmol/L (3.3-5.1); Sodium 142 mmol/L (135-145); Total Protein 7.3 g/dL (6.5-8.0)
[2023-04-28 19:29] LABS: TSH reflex Free T4 0.31 uIU/mL (0.32-4.0)
[2023-04-28 20:10] LABS: Free T4 (Free Thyroxine) 1.06 ng/dL (0.71-1.85)
[2023-04-28 22:09] VITALS: BP 138/76; PULSE 70; RESP 18; TEMP 37; O2SAT 97
== END 2023-04-29 08:07 | disposition home or self-care (01) ==
PROVIDERS: Physician Assistant; Emergency Provider Emergency Medicine
DX: R20.2 Paresthesia of skin (principal); F19.10 Other psychoactive substance abuse, uncomplicated; F17.210 Nicotine dependence, cigarettes, uncomplicated
CPT/HCPCS: 36415; 80053; 83735; 84100; 84439; 84443; 85025; 99283; 99284

== ENCOUNTER 2023-05-08 01:37 | Emergency (ER) | payer OTHER, SELFPAY ==
[2023-05-08 01:43] VITALS: BP 150/72; PULSE 84; RESP 20; TEMP 36.6; O2SAT 97; BMI 24.6
--- NOTE | 2023-05-08 03:00 | ED.EXTPRO ---
HPI - Extremity Problem General Chief complaint: Extremity Problem Stated complaint: L hand pain Time Seen by Provider: 05/08/23 02:59 Source: patient Mode of arrival: ambulatory Limitations: no limitations History of Present Illness HPI Narrative: 28-year-old male who presents emergency department for evaluation of numbness and weakness of his left hand and fingers. Patient states that it has been going on for 6 weeks but is gotten progressively worse. 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 The patient was seen on 04/28/2023 I did review this record. The provider at that time was concerned that the patient may have carpal tunnel syndrome, place the patient splint and referred him to the orthopedic group however the patient states that he was not able to be seen since there was no referral sent to the orthopedic group. 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 Related Data Home Medications Medication Instructions Recorded Confirmed albuterol sulfate 2.5 mg/3 mL 3 ml inhalation Q4-6H PRN wheezing 09/04/22 09/04/22 (0.083 %) solution for nebulization Previous Rx's Medication Instructions Recorded albuterol sulfate 90 mcg/actuation 1 puff inhalation RQ4H PRN ASTHMA 07/09/22 aerosol inhaler (Ventolin HFA) #8.5 grams fluticasone furoate 100 1 ea inhalation RDAILY #1 ea 07/09/22 mcg-vilanterol 25 mcg/dose inhalation powder (Breo Ellipta) naloxone 4 mg/actuation nasal 4 mg intranasal Q2M PRN opioid 09/08/22 spray (Narcan) overdose #2 ea sertraline 25 mg tablet 50 mg (2 x 25 mg) PO DAILY #30 tabs 09/23/22 digital therapeutics, OUD (Reset-O #1 ea 09/30/22 Digital Brandy (OUD)) buprenorphine 12 mg-naloxone 3 mg 1 film sublingual Q24H #7 ea 10/07/22 sublingual film (Suboxone) albuterol sulfate 2.5 mg/3 mL 2.5 mg (3 mL) inhalation Q4-6H PRN 10/23/22 (0.083 %) solution for nebulization shortness of breath or wheezing #180 mL albuterol sulfate 90 mcg/actuation 2 puff inhalation Q4-6H PRN 10/23/22 aerosol inhaler shortness of breath or wheezing #6.7 grams doxycycline monohydrate 100 mg 100 mg PO BID 10 days #20 caps 10/23/22 capsule prednisone 20 mg tablet 40 mg (2 x 20 mg) PO DAILY 5 days 10/23/22 #10 tabs albuterol sulfate 90 mcg/actuation 1 inh inhalation QID PRN shortness 11/01/22 aerosol inhaler of breath or wheezing #8.5 grams azithromycin 250 mg tablet See Rx Instructions PO .COMPLEX #6 11/01/22 (Zithromax Z-Gustavo) tabs prednisone 20 mg tablet 20 mg PO BID #10 tabs 11/01/22 cyclobenzaprine 10 mg tablet 10 mg PO TID PRN muscle spasm #14 04/01/23 tabs ibuprofen 600 mg tablet 600 mg PO Q8H PRN pain #14 tabs 04/01/23 lidocaine 5 % topical patch 1 patch topical DAILY #15 ea 04/01/23 naproxen 500 mg tablet 500 mg PO BID PRN pain #20 tabs 04/29/23 prednisone 20 mg tablet 60 mg (3 x 20 mg) PO DAILY 7 days 05/08/23 #21 tabs Allergies Allergy/AdvReac Type Severity Reaction Status Date / Time seafood Allergy Severe Anaphylaxis Verified 05/08/23 01:43 Penicillins [PENICILLINS] Allergy Intermediate RASH Verified 05/08/23 01:43 Review of Systems Review of Systems: Yes all other systems are reviewed and are negative PMFSH Past Medical History Medical History Alcohol abuse Asthma Depression Opioid use disorder Social History Social History Household Members: Family Household Members Other:: Mom Housing: House Do you presently have visiting nurse or other home services: No Alcohol intake: current Alcohol intake frequency: a few times a week Alcohol type: hard liquor Patient Tobacco Use Status: Current everyday Tobacco user Tobacco use type: Cigarette Cigarette Packs Per Day: 1 Cigarettes Per Day: 20.0 e-Cigarette/Vaping Use: Currently Using Substance Use Type: Marijuana Advance Directives: No Advance Directives Information Provided: No service: No Current occupational status: employed Physical Exam Vital Signs: Vital Signs: Last Vital Signs Temp 97.8 F 05/08/23 01:43 Pulse 84 05/08/23 01:43 Resp 20 05/08/23 01:43 BP 150/72 H 05/08/23 01:43 Pulse Ox 97 05/08/23 01:43 O2 Del Method Room Air 05/08/23 01:43 BMI result Body Mass Index 24.6 Vital signs revealed an elevated blood pressure of 150/72 otherwise unremarkable Exam: General: Awake, alert in no distress Extremities: Left hand: The patient has difficulty making an okay sign has difficulty with opponents of the thumb and pinky finger secondary to his weakness, patient has diminished light touch throughout his entire hand, he has no increased tenderness palpation over the carpal tunnel area, he has normal capillary refill. Medical Decision Making Medical Decision Making MDM Narrative: 28-year-old male who presents emergency department for evaluation of weakness of his left hand and fingers. The symptoms have been going on for 6 weeks. On my exam the patient seems to have decreased sensation over his fingers and weakness of all of his fingers with poor opponents and poor okay sign. The patient has been wearing the splint that was given to him at his last ED visit on 04/28/2023 with no improvement of her symptoms. This time I do not have a clear etiology for the symptoms it is possible the may have carpal tunnel syndrome or repetitive motions syndrome and I did discuss this with him. Patient was advised to continue wearing the splint. He started on prednisone 60 mg once a day for 1 week to see if this improves his symptoms. The patient will be referred to the orthopedic group Differential Diagnosis Differential Diagnoses: The differential diagnosis associated with the presentation includes Differential diagnosis includes was not limited to carpal tunnel syndrome, repetitive motion since Discharge Plan Discharge Clinical Impression: Left hand weakness Patient Disposition: Home, Self-Care Instructions: Paresthesia (ED) Additional Instructions: At this time I am not certain what is causing the weakness of your hand, it is possible you may have carpal tunnel syndrome verses repetitive motion syndrome. Continue to wear the splint. Take prednisone 20 mg pills, 3 pills once a day for 7 days. While you are taking prednisone, do not take any NSAIDs (Motrin, Advil, ibuprofen, Aleve, naproxen). Take Tylenol (acetaminophen) 500 mg pills, 2 pills every 6 hours as needed for pain or fever. Follow-up with our hand surgeon, Dr. Clifton within 1 week Please return to the emergency department if your symptoms get worse or if you develop any symptoms that are concerning to you. Prescriptions: New prednisone 20 mg tablet 60 mg PO DAILY 7 Days Qty: 21 0RF No Action albuterol sulfate [Ventolin HFA] 90 mcg/actuation Hfa Aerosol Inhaler 1 puff inhalation RQ4H PRN (Reason: ASTHMA) Qty: 8.5 0RF fluticasone furoate-vilanterol [Breo Ellipta] 100-25 mcg/dose Blister With Device 1 ea inhalation RDAILY Qty: 1 0RF albuterol sulfate 2.5 mg /3 mL (0.083 %) solution for nebulization 3 ml inhalation Q4-6H PRN (Reason: wheezing) albuterol sulfate 90 mcg/actuation HFA aerosol inhaler 2 puff inhalation Q4-6H PRN (Reason: shortness of breath or wheezing) Qty: 6.7 3RF Rx Instructions: May dispense medication equivalent accepted by patient's insurance albuterol sulfate 2.5 mg /3 mL (0.083 %) solution for nebulization 2.5 mg inhalation Q4-6H PRN (Reason: shortness of breath or wheezing) Qty: 180 2RF Rx Instructions: May dispense medication equivalent accepted by patient's insurance prednisone 20 mg tablet 40 mg PO DAILY 5 Days Qty: 10 0RF doxycycline monohydrate 100 mg capsule 100 mg PO BID 10 Days Qty: 20 0RF prednisone 20 mg tablet 20 mg PO BID Qty: 10 0RF albuterol sulfate 90 mcg/actuation HFA aerosol inhaler 1 inh inhalation QID PRN (Reason: shortness of breath or wheezing) Qty: 8.5 0RF azithromycin [Zithromax Z-Gustavo] 250 mg tablet See Rx Instructions .ROUTE .COMPLEX Qty: 6 0RF Rx Instructions: For 250 mg dose pack: take 500 mg today (day 1), then 250 mg for 4 days (days 2-5) cyclobenzaprine 10 mg tablet 10 mg PO TID PRN (Reason: muscle spasm) Qty: 14 0RF ibuprofen 600 mg tablet 600 mg PO Q8H PRN (Reason: pain) Qty: 14 0RF lidocaine 5 % adhesive patch,medicated 1 patch topical DAILY Qty: 15 0RF Rx Instructions: leave on most painful area for up to 12 hrs naproxen 500 mg tablet 500 mg PO BID PRN (Reason: pain) Qty: 20 0RF naloxone [Narcan] 4 mg/actuation spray,non-aerosol 4 mg intranasal Q2M PRN (Reason: opioid overdose) Qty: 2 0RF Rx Instructions: spray 1 dose into ONE nostril; alternate nostrils w each dose until help arrives sertraline 25 mg tablet 50 mg PO DAILY Qty: 30 0RF (DME) Reset-O Digital Brandy (OUD) Misc See Rx Instructions .MEDSUPPLY Qty: 1 3RF Rx Instructions: As directed (3-4 times a week) 84 days buprenorphine-naloxone [Suboxone] 12-3 mg film 1 film sublingual Q24H Qty: 7 0RF Referrals: Dominique Clifton MD [Physician] - 1 week (Left hand weakness of unclear etiology, question carpal tunnel)
[2023-05-08 03:27] VITALS: BP 133/71; PULSE 86; RESP 14; O2SAT 98
== END 2023-05-08 03:45 | disposition home or self-care (01) ==
PROVIDERS: Emergency Provider Emergency Medicine Emergency Medical Services
DX: M79.642 Pain in left hand (principal); F17.210 Nicotine dependence, cigarettes, uncomplicated; Z71.6 Tobacco abuse counseling; Z79.899 Other long term (current) drug therapy
CPT/HCPCS: 99283; 99284

== ENCOUNTER 2023-05-09 18:50 | Emergency (ER) | payer OTHER, SELFPAY ==
[2023-05-09 18:57] VITALS: BP 131/60; BP 160/78; PULSE 110; PULSE 95; RESP 18; O2SAT 93; BMI 22.3
--- NOTE | 2023-05-09 18:59 | ED_ITS ---
HPI - Overdose General Chief Complaint: Overdose Stated Complaint: ERRATIC BEHAVIOR Time Seen by Provider: 05/09/23 18:55 Source: EMS Mode of arrival: EMS Limitations: altered mental status History of Present Illness HPI Narrative: Patient comes to the emergency room via ambulance from home. Patient's roommates called the ambulance because patient was acting erratic, destructive, there was water and vomited all over the apartment. The EMS crew has been called multiple times in the last few weeks for this patient, patient is known to be a PCP enthusiant. Because patient was acting erratic and aggressive, pr ior to arrival to the emergency room, EMS gave him 5 mg of Haldol IM and 2 mg of IM Versed. On arrival to the emergency room, patient sleeping Related Data Home Medications Medication Instructions Recorded Confirmed albuterol sulfate 2.5 mg/3 mL 3 ml inhalation Q4-6H PRN wheezing 09/04/22 09/04/22 (0.083 %) solution for nebulization Previous Rx's Medication Instructions Recorded albuterol sulfate 90 mcg/actuation 1 puff inhalation RQ4H PRN ASTHMA 07/09/22 aerosol inhaler (Ventolin HFA) #8.5 grams fluticasone furoate 100 1 ea inhalation RDAILY #1 ea 07/09/22 mcg-vilanterol 25 mcg/dose inhalation powder (Breo Ellipta) naloxone 4 mg/actuation nasal 4 mg intranasal Q2M PRN opioid 09/08/22 spray (Narcan) overdose #2 ea sertraline 25 mg tablet 50 mg (2 x 25 mg) PO DAILY #30 tabs 09/23/22 digital therapeutics, OUD (Reset-O #1 ea 09/30/22 Digital Brandy (OUD)) buprenorphine 12 mg-naloxone 3 mg 1 film sublingual Q24H #7 ea 10/07/22 sublingual film (Suboxone) albuterol sulfate 2.5 mg/3 mL 2.5 mg (3 mL) inhalation Q4-6H PRN 10/23/22 (0.083 %) solution for nebulization shortness of breath or wheezing #180 mL albuterol sulfate 90 mcg/actuation 2 puff inhalation Q4-6H PRN 10/23/22 aerosol inhaler shortness of breath or wheezing #6.7 grams doxycycline monohydrate 100 mg 100 mg PO BID 10 days #20 caps 10/23/22 capsule prednisone 20 mg tablet 40 mg (2 x 20 mg) PO DAILY 5 days 10/23/22 #10 tabs albuterol sulfate 90 mcg/actuation 1 inh inhalation QID PRN shortness 11/01/22 aerosol inhaler of breath or wheezing #8.5 grams azithromycin 250 mg tablet See Rx Instructions PO .COMPLEX #6 11/01/22 (Zithromax Z-Gustavo) tabs prednisone 20 mg tablet 20 mg PO BID #10 tabs 11/01/22 cyclobenzaprine 10 mg tablet 10 mg PO TID PRN muscle spasm #14 04/01/23 tabs ibuprofen 600 mg tablet 600 mg PO Q8H PRN pain #14 tabs 04/01/23 lidocaine 5 % topical patch 1 patch topical DAILY #15 ea 04/01/23 naproxen 500 mg tablet 500 mg PO BID PRN pain #20 tabs 04/29/23 prednisone 20 mg tablet 60 mg (3 x 20 mg) PO DAILY 7 days 05/08/23 #21 tabs Allergies Allergy/AdvReac Type Severity Reaction Status Date / Time seafood Allergy Severe Anaphylaxis Verified 05/08/23 01:43 Penicillins [PENICILLINS] Allergy Intermediate RASH Verified 05/08/23 01:43 Review of Systems Review of Systems: Yes Unobtainable due to mental condition [facility] Past Medical History Medical History Alcohol abuse Asthma Depression Opioid use disorder Social History Social History Household Members: Family Household Members Other:: Mom Housing: House Do you presently have visiting nurse or other home services: No Alcohol intake: current Alcohol intake frequency: does not drink Alcohol type: hard liquor Patient Tobacco Use Status: Current everyday Tobacco user Tobacco use type: Cigarette Cigarette Packs Per Day: 1 Cigarettes Per Day: 20.0 e-Cigarette/Vaping Use: Currently Using Substance Use Type: Marijuana Advance Directives: No Advance Directives Information Provided: No service: No Current occupational status: employed Physical Exam Vital Signs: Vital Signs: Last Vital Signs Temp 97.6 F 05/09/23 20:36 Pulse 107 H 05/09/23 20:36 Resp 20 05/09/23 20:36 BP 150/79 H 05/09/23 20:36 Pulse Ox 96 05/09/23 20:36 O2 Del Method Room Air 05/09/23 20:36 Oxygen Flow Rate 4 05/09/23 18:57 BMI result Body Mass Index 22.3 Const: Other: Appearance: Somnolent, arousable to sternal rub Eyes: Pupils equal, round and reactive to light. ENT: Pharynx normal. Neck: Normal inspection. Neck supple. No lymph nodes noted. No crepitus CVS: Normal heart rate and rhythm. Pulses normal. Normal S1 and S2 Respiratory: No respiratory distress. Breath sounds normal. No Wheezing. No rales Abdomen: Soft and nontender. No rigidity. No distention. Skin: Skin warm and clammy.. Normal skin color. Normal skin turgor. Extremities: No lower extremity edema. No Lacerations. No Rash Neuro: Unable to participating cranial nerve assessment Psych: Sedated Course Course Course Narrative: -prior to arrival, patient received IM 5 mg of Haldol and 2 mg of IM Versed per EMS -plan: Metabolized to freedom, keep monitor. If patient has asthma saturations, he will need more Narcan. -when awake, CARE/SUDE eval pending Medical Decision Making Medical Decision Making [facility] Narrative: -patient did desaturate to the low 80s on room air, patient is started on 2 L. O2 improved to 96%. If patient desaturates again, he will need Narcan -21:45, patient is awake, alert and oriented x3, ambulatory, tolerating well p.o., clinically sober, blood pressure 150/79, oxygen saturation 96% on room air. Steady gait. Patient requesting to be discharged -patient declined care/sude eval/ detox info Differential Diagnosis Differential Diagnoses: The differential diagnosis associated with the presentation includes (Polysubstance abuse, accidental overdose, EtOH) Admission/Observation Consideration of admission/observation: Escalation of care including admission/observation considered (Patient will be under observation until sober, awake alert and oriented x3) Critical Care Time Critical Care Time Critical Care Time: Yes Total Critical Care Time: 60 Attestation: I have personally provided critical care time. Time includes review of lab data, radiology results, discussion with consultants, and monitoring for potential decompensation. Intervention performed as documented. Discharge Plan Discharge Clinical Impression: Substance abuse Patient Disposition: Home, Self-Care Instructions: Polysubstance Abuse (ED) Additional Instructions: Please follow-up with your primary care physician tomorrow. If you have any worsening or new symptoms, please return to the emergency room or call 911 Prescriptions: No Action albuterol sulfate [Ventolin HFA] 90 mcg/actuation Hfa Aerosol Inhaler 1 puff inhalation RQ4H PRN (Reason: ASTHMA) Qty: 8.5 0RF fluticasone furoate-vilanterol [Breo Ellipta] 100-25 mcg/dose Blister With Device 1 ea inhalation RDAILY Qty: 1 0RF albuterol sulfate 2.5 mg /3 mL (0.083 %) solution for nebulization 3 ml inhalation Q4-6H PRN (Reason: wheezing) albuterol sulfate 90 mcg/actuation HFA aerosol inhaler 2 puff inhalation Q4-6H PRN (Reason: shortness of breath or wheezing) Qty: 6.7 3RF Rx Instructions: May dispense medication equivalent accepted by patient's insurance albuterol sulfate 2.5 mg /3 mL (0.083 %) solution for nebulization 2.5 mg inhalation Q4-6H PRN (Reason: shortness of breath or wheezing) Qty: 180 2RF Rx Instructions: May dispense medication equivalent accepted by patient's insurance prednisone 20 mg tablet 40 mg PO DAILY 5 Days Qty: 10 0RF doxycycline monohydrate 100 mg capsule 100 mg PO BID 10 Days Qty: 20 0RF prednisone 20 mg tablet 20 mg PO BID Qty: 10 0RF albuterol sulfate 90 mcg/actuation HFA aerosol inhaler 1 inh inhalation QID PRN (Reason: shortness of breath or wheezing) Qty: 8.5 0RF azithromycin [Zithromax Z-Gustavo] 250 mg tablet See Rx Instructions .ROUTE .COMPLEX Qty: 6 0RF Rx Instructions: For 250 mg dose pack: take 500 mg today (day 1), then 250 mg for 4 days (days 2-5) cyclobenzaprine 10 mg tablet 10 mg PO TID PRN (Reason: muscle spasm) Qty: 14 0RF ibuprofen 600 mg tablet 600 mg PO Q8H PRN (Reason: pain) Qty: 14 0RF lidocaine 5 % adhesive patch,medicated 1 patch topical DAILY Qty: 15 0RF Rx Instructions: leave on most painful area for up to 12 hrs prednisone 20 mg tablet 60 mg PO DAILY 7 Days Qty: 21 0RF naproxen 500 mg tablet 500 mg PO BID PRN (Reason: pain) Qty: 20 0RF naloxone [Narcan] 4 mg/actuation spray,non-aerosol 4 mg intranasal Q2M PRN (Reason: opioid overdose) Qty: 2 0RF Rx Instructions: spray 1 dose into ONE nostril; alternate nostrils w each dose until help arrives sertraline 25 mg tablet 50 mg PO DAILY Qty: 30 0RF (DME) Reset-O Digital Brandy (OUD) Misc See Rx Instructions .MEDSUPPLY Qty: 1 3RF Rx Instructions: As directed (3-4 times a week) 84 days buprenorphine-naloxone [Suboxone] 12-3 mg film 1 film sublingual Q24H Qty: 7 0RF
[2023-05-09 20:36] VITALS: BP 150/79; PULSE 107; RESP 20; TEMP 36.4; O2SAT 96
--- NOTE | 2023-05-09 20:52 | PC.NURSE ---
Pt aox4, ambulating with steady gait at the bedside. VSS. Pt reports no pain at this time and wanting to leave. Unsure of any drug use, reports alcohol use. Liz dudley provided. aware.
[2023-05-09 22:14] VITALS: BP 124/68; PULSE 93; RESP 14; TEMP 37.3; O2SAT 97
== END 2023-05-09 22:16 | disposition home or self-care (01) ==
PROVIDERS: Emergency Provider Emergency Medicine
DX: F19.10 Other psychoactive substance abuse, uncomplicated (principal); F11.20 Opioid dependence, uncomplicated; J45.909 Unspecified asthma, uncomplicated; F17.210 Nicotine dependence, cigarettes, uncomplicated; F12.90 Cannabis use, unspecified, uncomplicated; Z79.899 Other long term (current) drug therapy
CPT/HCPCS: 99283; 99284

== ENCOUNTER 2023-05-17 00:22 | Emergency (ER) | payer OTHER, SELFPAY ==
[2023-05-17 00:24] VITALS: BP 142/82; PULSE 108; O2SAT 84
--- NOTE | 2023-05-17 00:25 | ED_ITS ---
HPI - Overdose General Chief Complaint: Overdose Stated Complaint: OD Time Seen by Provider: 05/17/23 00:25 Source: patient Mode of arrival: EMS Limitations: no limitations History of Present Illness HPI Narrative: Patient with history of opiate use disorder was found unresponsive in his car EMS gave him 4 mg of intranasal Narcan patient responded alert and awake at this time patient refusing that he took opiates Related Data Home Medications Medication Instructions Recorded Confirmed albuterol sulfate 2.5 mg/3 mL 3 ml inhalation Q4-6H PRN wheezing 09/04/22 09/04/22 (0.083 %) solution for nebulization Previous Rx's Medication Instructions Recorded albuterol sulfate 90 mcg/actuation 1 puff inhalation RQ4H PRN ASTHMA 07/09/22 aerosol inhaler (Ventolin HFA) #8.5 grams fluticasone furoate 100 1 ea inhalation RDAILY #1 ea 07/09/22 mcg-vilanterol 25 mcg/dose inhalation powder (Breo Ellipta) naloxone 4 mg/actuation nasal 4 mg intranasal Q2M PRN opioid 09/08/22 spray (Narcan) overdose #2 ea sertraline 25 mg tablet 50 mg (2 x 25 mg) PO DAILY #30 tabs 09/23/22 [employer] therapeutics, OUD (Reset-O #1 ea 09/30/22 Digital Brandy (OUD)) buprenorphine 12 mg-naloxone 3 mg 1 film sublingual Q24H #7 ea 10/07/22 sublingual film (Suboxone) albuterol sulfate 2.5 mg/3 mL 2.5 mg (3 mL) inhalation Q4-6H PRN 10/23/22 (0.083 %) solution for nebulization shortness of breath or wheezing #180 mL albuterol sulfate 90 mcg/actuation 2 puff inhalation Q4-6H PRN 10/23/22 aerosol inhaler shortness of breath or wheezing #6.7 grams doxycycline monohydrate 100 mg 100 mg PO BID 10 days #20 caps 10/23/22 capsule prednisone 20 mg tablet 40 mg (2 x 20 mg) PO DAILY 5 days 10/23/22 #10 tabs albuterol sulfate 90 mcg/actuation 1 inh inhalation QID PRN shortness 11/01/22 aerosol inhaler of breath or wheezing #8.5 grams azithromycin 250 mg tablet See Rx Instructions PO .COMPLEX #6 11/01/22 (Zithromax Z-Gustavo) tabs prednisone 20 mg tablet 20 mg PO BID #10 tabs 11/01/22 cyclobenzaprine 10 mg tablet 10 mg PO TID PRN muscle spasm #14 04/01/23 tabs ibuprofen 600 mg tablet 600 mg PO Q8H PRN pain #14 tabs 04/01/23 lidocaine 5 % topical patch 1 patch topical DAILY #15 ea 04/01/23 naproxen 500 mg tablet 500 mg PO BID PRN pain #20 tabs 04/29/23 prednisone 20 mg tablet 60 mg (3 x 20 mg) PO DAILY 7 days 05/08/23 #21 tabs Allergies Allergy/AdvReac Type Severity Reaction Status Date / Time seafood Allergy Severe Anaphylaxis Verified 05/08/23 01:43 Penicillins [PENICILLINS] Allergy Intermediate RASH Verified 05/08/23 01:43 Review of Systems Review of Systems: Yes all other systems are reviewed and are negative [facility] Past Medical History Medical History Alcohol abuse Asthma Depression Opioid use disorder Social History Social History Household Members: Family Household Members Other:: Mom Housing: House Do you presently have visiting nurse or other home services: No Alcohol intake: unknown Patient Tobacco Use Status: Current everyday Tobacco user Tobacco use type: Cigarette Cigarette Packs Per Day: 1 Cigarettes Per Day: 20.0 e-Cigarette/Vaping Use: Currently Using Use of substances other than those prescribed or required for medical reasons: Unknown Substance Use Type: Marijuana Advance Directives: No Advance Directives Information Provided: No service: No Current occupational status: employed Physical Exam Vital Signs: Vital Signs: Last Vital Signs Temp 97.8 F 05/17/23 00:26 Pulse 97 05/17/23 00:26 Resp 17 05/17/23 00:26 BP 149/88 H 05/17/23 00:26 Pulse Ox 98 05/17/23 00:26 O2 Del Method Room Air 05/17/23 00:26 BMI result Body Mass Index 20.8 Appearance: Alert. Oriented X3. No acute distress. Eyes: PERRLA, No Nystagmus ENT: Pharynx normal. Oral Mucosa moist atraumatic normocephalic Neck: Normal inspection. Neck supple. CVS: Normal heart rate and rhythm. Pulses normal. Respiratory: No respiratory distress. Equal air entry bilateral, no wheezing/rales/rhonchi Abdomen: Soft and nontender. Bowel sounds are present, no mass palpable, no CVA tenderness Skin: Skin warm and dry. Normal skin color. Normal skin turgor. Extremities: No lower extremity edema. No calf tenderness Neuro: Oriented X 3. No motor deficit. No sensory deficit.No cerebellar signs , cranial nerves II-XII intact Medical Decision Making Medical Decision Making [facility] Narrative: Patient with fentanyl overdose, U tox positive for opiates and fentanyl , received Narcan does not want to go to detox watch him for 2 hours, saturating 98% on room air will discharge patient home Lab Data [facility] Lab Attestation statement: I reviewed the patient's lab results. Labs: Lab Results 05/17/23 Range/Units 00:47 Urine Opiates Screen POSITIVE H (Not Detect) Urine Fentanyl Screen POSITIVE H (Not Detect) Ur Barbiturates Screen Not Detected (Not Detect) Ur Phencyclidine Scrn Not Detected (Not Detect) Ur Amphetamines Screen Not Detected (Not Detect) U Benzodiazepines Scrn Not Detected (Not Detect) Urine Cocaine Screen Not Detected (Not Detect) U Marijuana (THC) Screen POSITIVE H (Not Detect) Discharge Plan Discharge Clinical Impression: Overdose of fentanyl Patient Disposition: Home, Self-Care Instructions: Opioid Use Disorder (ED) Additional Instructions: Do not use drugs Follow with detox Prescriptions: No Action albuterol sulfate [Ventolin HFA] 90 mcg/actuation Hfa Aerosol Inhaler 1 puff inhalation RQ4H PRN (Reason: ASTHMA) Qty: 8.5 0RF fluticasone furoate-vilanterol [Breo Ellipta] 100-25 mcg/dose Blister With Device 1 ea inhalation RDAILY Qty: 1 0RF albuterol sulfate 2.5 mg /3 mL (0.083 %) solution for nebulization 3 ml inhalation Q4-6H PRN (Reason: wheezing) albuterol sulfate 90 mcg/actuation HFA aerosol inhaler 2 puff inhalation Q4-6H PRN (Reason: shortness of breath or wheezing) Qty: 6.7 3RF Rx Instructions: May dispense medication equivalent accepted by patient's insurance albuterol sulfate 2.5 mg /3 mL (0.083 %) solution for nebulization 2.5 mg inhalation Q4-6H PRN (Reason: shortness of breath or wheezing) Qty: 180 2RF Rx Instructions: May dispense medication equivalent accepted by patient's insurance prednisone 20 mg tablet 40 mg PO DAILY 5 Days Qty: 10 0RF doxycycline monohydrate 100 mg capsule 100 mg PO BID 10 Days Qty: 20 0RF prednisone 20 mg tablet 20 mg PO BID Qty: 10 0RF albuterol sulfate 90 mcg/actuation HFA aerosol inhaler 1 inh inhalation QID PRN (Reason: shortness of breath or wheezing) Qty: 8.5 0RF azithromycin [Zithromax Z-Gustavo] 250 mg tablet See Rx Instructions .ROUTE .COMPLEX Qty: 6 0RF Rx Instructions: For 250 mg dose pack: take 500 mg today (day 1), then 250 mg for 4 days (days 2-5) cyclobenzaprine 10 mg tablet 10 mg PO TID PRN (Reason: muscle spasm) Qty: 14 0RF ibuprofen 600 mg tablet 600 mg PO Q8H PRN (Reason: pain) Qty: 14 0RF lidocaine 5 % adhesive patch,medicated 1 patch topical DAILY Qty: 15 0RF Rx Instructions: leave on most painful area for up to 12 hrs prednisone 20 mg tablet 60 mg PO DAILY 7 Days Qty: 21 0RF naproxen 500 mg tablet 500 mg PO BID PRN (Reason: pain) Qty: 20 0RF naloxone [Narcan] 4 mg/actuation spray,non-aerosol 4 mg intranasal Q2M PRN (Reason: opioid overdose) Qty: 2 0RF Rx Instructions: spray 1 dose into ONE nostril; alternate nostrils w each dose until help arrives sertraline 25 mg tablet 50 mg PO DAILY Qty: 30 0RF (DME) Reset-O Digital Brandy (OUD) Misc See Rx Instructions .MEDSUPPLY Qty: 1 3RF Rx Instructions: As directed (3-4 times a week) 84 days buprenorphine-naloxone [Suboxone] 12-3 mg film 1 film sublingual Q24H Qty: 7 0RF
[2023-05-17 00:26] VITALS: BP 149/88; PULSE 97; RESP 17; TEMP 36.6; O2SAT 98
[2023-05-17 00:34] VITALS: BMI 20.8
--- NOTE | 2023-05-17 00:56 | MHC.EDTECH ---
Patient is changing into hospital attire all belongings are lock into decon
--- NOTE | 2023-05-17 01:01 | MHC.EDTECH ---
Pt resting in bed Respirations even and unlabored Plan of care is ongoing
[2023-05-17 01:15] LABS: Amphetamine Screen Urine Not Detected (Not Detect); Barbiturates, Urine Not Detected (Not Detect); Benzodiazepines Screen Urine Not Detected (Not Detect); Cannabinoid Screen Urine POSITIVE (Not Detect); Cocaine Screen Urine Not Detected (Not Detect); Fentanyl, urine POSITIVE (Not Detect); Opiate Screen Urine POSITIVE (Not Detect); Phencyclidine Screen Urine Not Detected (Not Detect)
[2023-05-17 03:12] VITALS: BP 144/70; PULSE 96; RESP 17; TEMP 37; O2SAT 95
== END 2023-05-17 05:07 | disposition home or self-care (01) ==
PROVIDERS: Emergency Provider Internal Medicine
DX: T40.601A Poisoning by unspecified narcotics, accidental (unintentional), initial encounter (principal); Y92.9 Unspecified place or not applicable; Z79.899 Other long term (current) drug therapy
CPT/HCPCS: 80307; 99284; 99285

== ENCOUNTER 2023-05-31 01:47 | Emergency (ER) | payer OTHER, SELFPAY ==
[2023-05-31 02:00] VITALS: BMI 24.4
--- NOTE | 2023-05-31 02:12 | ED.GENADULT ---
HPI - General Adult General Chief complaint: ETOH/Substance Use Stated complaint: High on PCP Time Seen by Provider: 05/31/23 02:11 Source: patient, EMS and police Mode of arrival: ambulatory Limitations: no limitations History of Present Illness HPI narrative: 28-year-old male brought in by EMS and the police after was found in the street with questionable substance abuse, patient had a history of opiate/fentanyl/marijuana use in the past, patient declined using any drugs today, no SI, no HI. Patient is cooperative and redirectable, stable vital signs, patient is dancing and singing in the emergency department. Related Data Home Medications Medication Instructions Recorded Confirmed albuterol sulfate 2.5 mg/3 mL 3 ml inhalation Q4-6H PRN wheezing 09/04/22 09/04/22 (0.083 %) solution for nebulization Previous Rx's Medication Instructions Recorded albuterol sulfate 90 mcg/actuation 1 puff inhalation RQ4H PRN ASTHMA 07/09/22 aerosol inhaler (Ventolin HFA) #8.5 grams fluticasone furoate 100 1 ea inhalation RDAILY #1 ea 07/09/22 mcg-vilanterol 25 mcg/dose inhalation powder (Breo Ellipta) naloxone 4 mg/actuation nasal 4 mg intranasal Q2M PRN opioid 09/08/22 spray (Narcan) overdose #2 ea sertraline 25 mg tablet 50 mg (2 x 25 mg) PO DAILY #30 tabs 09/23/22 Y'all therapeutics, OUD (Reset-O #1 ea 09/30/22 Digital Brandy (OUD)) buprenorphine 12 mg-naloxone 3 mg 1 film sublingual Q24H #7 ea 10/07/22 sublingual film (Suboxone) albuterol sulfate 2.5 mg/3 mL 2.5 mg (3 mL) inhalation Q4-6H PRN 10/23/22 (0.083 %) solution for nebulization shortness of breath or wheezing #180 mL albuterol sulfate 90 mcg/actuation 2 puff inhalation Q4-6H PRN 10/23/22 aerosol inhaler shortness of breath or wheezing #6.7 grams doxycycline monohydrate 100 mg 100 mg PO BID 10 days #20 caps 10/23/22 capsule prednisone 20 mg tablet 40 mg (2 x 20 mg) PO DAILY 5 days 10/23/22 #10 tabs albuterol sulfate 90 mcg/actuation 1 inh inhalation QID PRN shortness 11/01/22 aerosol inhaler of breath or wheezing #8.5 grams azithromycin 250 mg tablet See Rx Instructions PO .COMPLEX #6 11/01/22 (Zithromax Z-Gustavo) tabs prednisone 20 mg tablet 20 mg PO BID #10 tabs 11/01/22 cyclobenzaprine 10 mg tablet 10 mg PO TID PRN muscle spasm #14 04/01/23 tabs ibuprofen 600 mg tablet 600 mg PO Q8H PRN pain #14 tabs 04/01/23 lidocaine 5 % topical patch 1 patch topical DAILY #15 ea 04/01/23 naproxen 500 mg tablet 500 mg PO BID PRN pain #20 tabs 04/29/23 prednisone 20 mg tablet 60 mg (3 x 20 mg) PO DAILY 7 days 05/08/23 #21 tabs albuterol sulfate 90 mcg/actuation 2 puff inhalation Q4-6H PRN 05/17/23 aerosol inhaler (ProAir HFA) shortness of breath or wheezing #8.5 grams Allergies Allergy/AdvReac Type Severity Reaction Status Date / Time seafood Allergy Severe Anaphylaxis Verified 05/17/23 04:46 Penicillins [PENICILLINS] Allergy Intermediate RASH Verified 05/17/23 04:46 Review of Systems Review of Systems: All other systems are reviewed and are negative Constitutional: Reports as per HPI and Reports no additional constitutional complaints Eyes: Reports as per HPI and Reports no additional eye complaints Reports system reviewed and no additional complaints, except as documented Cardiovascular: Reports as per HPI and Reports no additional cardiovascular complaints Respiratory: Reports as per HPI and Reports no additional respiratory complaints Gastrointestinal: Reports as per HPI and Reports no additional gastrointestinal complaints Genitourinary: Reports no additional female genitourinary complaints Musculoskeletal: Reports no additional musculoskeletal complaints Skin/Breast: Reports system reviewed and no additional complaints, except as docu Psychiatric: Reports no additional psychiatric complaints Endocrine: Reports no additional endocrine complaints Hematologic/Lymphatic: Reports no additional hematologic/lymphatic complaints Allergic/Immunologic: Reports no additional allergic/immunologic complaints Reports system reviewed and no additional complaints, except as documented and Reports Abnormal speech present PMFSH Past Medical History Medical History Substance abuse Alcohol abuse Depression Opioid use disorder Asthma Social History Social History Household Members: Family Household Members Other:: Mom Housing: House Do you presently have visiting nurse or other home services: No Alcohol intake: current Alcohol intake frequency: does not drink Alcohol type: hard liquor Patient Tobacco Use Status: Current everyday Tobacco user Tobacco use type: Cigarette Cigarette Packs Per Day: 1 Cigarettes Per Day: 20.0 Smoked in Last 30 Days: Yes e-Cigarette/Vaping Use: Currently Using Use of substances other than those prescribed or required for medical reasons: Yes Substance Use Type: Heroin and Opiates Substance Use Frequency: Chronic Longstanding Last Used Substance: Just Prior to Admission Any prior treatment program specific to substance use: No Advance Directives: No Advance Directives Information Provided: Yes service: No Current occupational status: employed Physical Exam ED Vital Signs: Vital Signs - 24 hr 05/31/23 02:39 05/31/23 02:44 05/31/23 03:01 Respiratory Rate 16 16 16 BMI result Body Mass Index 24.4 Vital signs have been reviewed and appear to be correct. Blood pressure elevated. Heart rate normal. Respiratory rate normal. Temperature normal. Oxygen saturation normal. Appearance: Alert. Oriented X3. No acute distress. Head: Normal external exam. Normocephalic. Atraumatic. No Soliz signs noted. No raccoon eyes noted Eyes: PERRLA. EOMI. Conjunctiva and sclera normal. Eyelids normal. ENT: TM's Normal. Pharynx normal. Uvula midline. Moist mucous membranes. No trismus noted. No drooling noted. No muffled voice noted. Neck: Normal inspection. Neck supple. FROM. No adenopathy. Thyroid Normal. No meningeal signs. No neck mass noted. CVS: Normal heart rate and rhythm. Heart sound normal. No murmurs noted. Pulses normal throughout. Respiratory: No respiratory distress. Painless inspiration. Breath sounds normal. No wheezes/rales/rhonchi noted. Chest nontender. No accessory muscle usage noted or decreased air movement noted. Abdomen: Soft and nontender. Bowel sounds normal in all 4 quadrants. No distention noted. No organomegaly noted. No visible injury noted. Back: No CVA tenderness. Full range of motion noted. Skin: Skin warm and dry. Normal skin color. Normal skin turgor. No rashes/lesions/lacerations noted. Extremities: No lower extremity edema. Extremities exhibit normal range of motion. Extremities nontender. Neuro: Oriented X 3. Cranial nerve exam: II-XII are grossly intact No motor deficit. No sensory deficit. Reflexes normal. Course Reevaluation(s) Reevaluation #1: Patient is singing and dancing in the emergency department causing disturbance to the other patients needed to be restrained with Zyprexa. Patient now sleeping. Presented with his typical presentation of likely PCP abuse. Will discharge when he is sober in the a.m. Signed out to Dr. Gutierrez for re-evaluation and discharge. Time: 05:35 Medications Administered Discontinued Medications Generic Name Dose Route Start Last Admin Trade Name Freq PRN Reason Stop Dose Admin Olanzapine 10 mg 05/31/23 02:34 05/31/23 02:39 Olanzapine 10 Mg Vial IM 05/31/23 02:35 10 mg ONCE ONE Administration Medical Decision Making Differential Diagnosis Differential Diagnoses: The differential diagnosis associated with the presentation includes (Acute psychosis, substance abuse.) Admission/Observation Consideration of admission/observation: Escalation of care including admission/observation considered Discharge Plan Discharge Clinical Impression: Active substance abuse Patient Disposition: Home, Self-Care Instructions: Polysubstance Abuse (ED) Prescriptions: No Action albuterol sulfate [Ventolin HFA] 90 mcg/actuation Hfa Aerosol Inhaler 1 puff inhalation RQ4H PRN (Reason: ASTHMA) Qty: 8.5 0RF fluticasone furoate-vilanterol [Breo Ellipta] 100-25 mcg/dose Blister With Device 1 ea inhalation RDAILY Qty: 1 0RF albuterol sulfate 2.5 mg /3 mL (0.083 %) solution for nebulization 3 ml inhalation Q4-6H PRN (Reason: wheezing) albuterol sulfate 90 mcg/actuation HFA aerosol inhaler 2 puff inhalation Q4-6H PRN (Reason: shortness of breath or wheezing) Qty: 6.7 3RF Rx Instructions: May dispense medication equivalent accepted by patient's insurance albuterol sulfate 2.5 mg /3 mL (0.083 %) solution for nebulization 2.5 mg inhalation Q4-6H PRN (Reason: shortness of breath or wheezing) Qty: 180 2RF Rx Instructions: May dispense medication equivalent accepted by patient's insurance prednisone 20 mg tablet 40 mg PO DAILY 5 Days Qty: 10 0RF doxycycline monohydrate 100 mg capsule 100 mg PO BID 10 Days Qty: 20 0RF prednisone 20 mg tablet 20 mg PO BID Qty: 10 0RF albuterol sulfate 90 mcg/actuation HFA aerosol inhaler 1 inh inhalation QID PRN (Reason: shortness of breath or wheezing) Qty: 8.5 0RF azithromycin [Zithromax Z-Gustavo] 250 mg tablet See Rx Instructions .ROUTE .COMPLEX Qty: 6 0RF Rx Instructions: For 250 mg dose pack: take 500 mg today (day 1), then 250 mg for 4 days (days 2-5) cyclobenzaprine 10 mg tablet 10 mg PO TID PRN (Reason: muscle spasm) Qty: 14 0RF ibuprofen 600 mg tablet 600 mg PO Q8H PRN (Reason: pain) Qty: 14 0RF lidocaine 5 % adhesive patch,medicated 1 patch topical DAILY Qty: 15 0RF Rx Instructions: leave on most painful area for up to 12 hrs prednisone 20 mg tablet 60 mg PO DAILY 7 Days Qty: 21 0RF naproxen 500 mg tablet 500 mg PO BID PRN (Reason: pain) Qty: 20 0RF albuterol sulfate [ProAir HFA] 90 mcg/actuation HFA aerosol inhaler 2 puff inhalation Q4-6H PRN (Reason: shortness of breath or wheezing) Qty: 8.5 0RF naloxone [Narcan] 4 mg/actuation spray,non-aerosol 4 mg intranasal Q2M PRN (Reason: opioid overdose) Qty: 2 0RF Rx Instructions: spray 1 dose into ONE nostril; alternate nostrils w each dose until help arrives sertraline 25 mg tablet 50 mg PO DAILY Qty: 30 0RF (DME) Reset-O Digital Brandy (OUD) Misc See Rx Instructions .MEDSUPPLY Qty: 1 3RF Rx Instructions: As directed (3-4 times a week) 84 days buprenorphine-naloxone [Suboxone] 12-3 mg film 1 film sublingual Q24H Qty: 7 0RF Referrals: Nikky Ortiz NP [Primary Care Provider] -
[2023-05-31 02:39] VITALS: RESP 16
--- NOTE | 2023-05-31 02:41 | PC.NURSE ---
Addendum entered by Tess Curry RN 05/31/23 04:42: pt was medicated with zyprexa im for yelling and uncooperative with staff, redirected for safety Original Note: pt medicated with 10 mg of zyprexa im
[2023-05-31 02:44] VITALS: RESP 16
[2023-05-31 03:01] VITALS: RESP 16
--- NOTE | 2023-05-31 04:30 | PC.NURSE ---
pt reassessed after the administration of Zyrexa, pt wakes up abruptly, ambulates to bathroom, gait steady
--- NOTE | 2023-05-31 05:31 | PC.NURSE ---
pt observed sleeping comfortably
[2023-05-31 05:46] VITALS: BP 111/64; PULSE 99; RESP 18; TEMP 36.7; O2SAT 97
== END 2023-05-31 06:45 | disposition home or self-care (01) ==
PROVIDERS: Emergency Provider Emergency Medicine; PCP Nurse Practitioner Family
DX: F16.10 Hallucinogen abuse, uncomplicated (principal); F11.10 Opioid abuse, uncomplicated; F12.10 Cannabis abuse, uncomplicated; F17.210 Nicotine dependence, cigarettes, uncomplicated; Z71.6 Tobacco abuse counseling; Z79.899 Other long term (current) drug therapy
CPT/HCPCS: 96372; 99284; 99285; J2359

== ENCOUNTER 2023-06-06 15:17 | Outpatient (REF) | payer OTHER, SELFPAY | END 2023-06-06 15:18 | disposition home or self-care (01) | LOC: HO.HOSX 15:17 | PROVIDERS: Visit Provider Physician Assistant | DX: Z13.89 Encounter for screening for other disorder (principal) ==

== ENCOUNTER 2023-06-07 08:44 | Outpatient (AMB) | payer OTHER, SELFPAY ==
--- NOTE | 2023-06-07 08:58 | MHC.OFFVIS ---
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 Patient reports symptoms have been presents for about 5-6 months that has been getting worse. Numbness and tingling in his whole hand as well as his 2nd, 3rd, 4th, and 5th digits. No other tx. He was seen at [facility] where he was given a velcro wrist brace, however brace does not help. Allergies seafood Allergy (Severe, Verified 06/07/23 09:00) Anaphylaxis Penicillins [PENICILLINS] Allergy (Intermediate, Verified 06/07/23 09:00) RASH Medication List - Last Reconciled 06/07/23 by Sara Hancock PA-C albuterol sulfate 90 mcg/actuation (Ventolin HFA) 1 puff inhalation RQ4H PRN albuterol sulfate 90 mcg/actuation 2 puffs inhalation Q4-6H PRN albuterol sulfate 2.5 mg (3 mL) inhalation Q4-6H PRN albuterol sulfate 90 mcg/actuation 1 inh inhalation QID PRN albuterol sulfate 90 mcg/actuation (ProAir HFA) 2 puffs inhalation Q4-6H PRN azithromycin (Zithromax Z-Gustavo) For 250 mg dose pack: take 500 mg today (day 1), then 250 mg for 4 days (days 2-5) buprenorphine-naloxone 12-3 mg (Suboxone) 1 film sublingual Q24H cyclobenzaprine 10 mg PO TID PRN digital therapeutics, OUD (Reset-O Digital Brandy (OUD)) As directed (3-4 times a week) 84 days doxycycline monohydrate 100 mg PO BID 10 days fluticasone furoate-vilanterol 100-25 mcg/dose (Breo Ellipta) 1 ea inhalation RDAILY ibuprofen 600 mg PO Q8H PRN lidocaine 5% 1 patch topical DAILY naloxone 4 mg/actuation (Narcan) 4 mg intranasal Q2M PRN naproxen 500 mg PO BID PRN prednisone 40 mg (2 x 20 mg) PO DAILY 5 days prednisone 20 mg PO BID prednisone 60 mg (3 x 20 mg) PO DAILY 7 days sertraline 50 mg (2 x 25 mg) PO DAILY 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 He states he has worsening pain, numbness and tingling in his whole hand as well as in his 2nd, 3rd, 4th and 5th digits for about 6 months. He was seen at ED where he was given a Velcro wrist splint which did not provide him any relief. He has not had any previous treatment. [facility] Medical History Substance abuse Alcohol abuse Depression Opioid use disorder Asthma Social History (Updated 06/07/23 @ 09:01 by BORA Pathak) Household Members: Family Household Members Other:: Mom Housing: House Do you presently have visiting nurse or other home services: No Alcohol intake: current Alcohol intake frequency: does not drink Alcohol type: hard liquor Patient Tobacco Use Status: Current everyday Tobacco user Tobacco use type: Cigarette Cigarette Packs Per Day: 1 Cigarettes Per Day: 20.0 e-Cigarette/Vaping Use: Currently Using Substance Use Type: Heroin and Opiates service: No Current occupational status: employed Current occupation: right hand dominant Review of Systems Const All systems reviewed & are unremarkable except as noted in HPI and below Physical Exam Vital Signs: BMI result Body Mass Index 26.2 Const General: cooperative and no acute distress Orientation/consciousness: patient oriented x3 Resp Effort & Inspection: normal respiratory effort and able to speak in complete sentences Cardio Peripheral pulses: Peripheral pulses 2+ throughout Neuro General: patient oriented x3 Extrem Other: Left wrist: Normal to inspection. Tenderness over the carpal canal. Numbness and tingling over the median nerve distribution of the right hand. Able to make a full fist and fully extend all fingers. Positive Tinel's. Assessment & Plan Assessment & Plan (1) Carpal tunnel syndrome on left: Code(s): G56.02 - Carpal tunnel syndrome, left upper limb Plan We discussed options which include continue to use night splint and also proceed with EMG/nerve conduction test. I explain that this test will determine which stage of carpal tunnel he has and then we can proceed with further treatment options. If test is negative, I explained that it may be coming from his neck or spine and then we can refer him to pain management if this is to be negative. He is content with this plan and will see back once the results are back. Orders: Orders NE electromyogram (EMG) Today R20.0 - Anesthesia of skin, R20.2 - Paresthesia of skin NE nerve conduction velocity Today R20.0 - Anesthesia of skin, R20.2 - Paresthesia of skin XR hand LT min 3V Today M79.642 - Pain in left hand Patient Instructions: Scribed for Sara Hancock PA-C, by [facility] medical practitioners, on 06/07/2023 at 9:00 AM EST. I, Sara Hancock PA-C, have personally reviewed and agree with the information entered by the scribe. Coding Level of Care Code New Pt Level 3 (32551) Diagnoses Carpal tunnel syndrome on left G56.02
[2023-06-07 09:00] VITALS: BMI 26.2
== END 2023-06-07 09:33 | disposition home or self-care (01) ==
PROVIDERS: Visit Provider Physician Assistant
DX: G56.02 Carpal tunnel syndrome, left upper limb (principal)
CPT/HCPCS: 99203

== ENCOUNTER 2023-06-07 14:18 | Outpatient (REF) | payer OTHER, SELFPAY ==
--- NOTE | ~2023-06-07 | XR_ITS ---
EXAMINATION: XR HAND, LEFT CLINICAL INFORMATION: Left hand pain COMPARISON: 06/07/2023 TECHNIQUE: PA, lateral, and oblique views of the left hand. FINDINGS: Mild degenerative changes first carpometacarpal joint with joint space narrowing and hypertrophic change. Alignment preserved. Mild ulnar minus variance. No displaced fracture. Mild degenerative changes first metatarsal-phalangeal joint with subchondral sclerosis. XR/XR hand LT min 3V IMPRESSION: Mild degenerative changes first carpometacarpal joint. No displaced fracture. Recommend follow-up imaging in 10-14 days if fracture is suspected.
== END 2023-06-07 14:19 | disposition home or self-care (01) ==
LOC: HO.HOSX 14:18
PROVIDERS: Visit Provider Physician Assistant
DX: G56.02 Carpal tunnel syndrome, left upper limb (principal)
CPT/HCPCS: 73130; 99202

== ENCOUNTER 2023-06-13 01:22 | Emergency (ER) | payer OTHER, SELFPAY ==
[2023-06-13 01:26] VITALS: BP 125/72; PULSE 76
[2023-06-13 01:27] VITALS: BMI 27.4
--- NOTE | 2023-06-13 01:41 | PC.NURSE ---
pt yelling in room, hitting his fists together; pacing in room. initially uncooperative w/ security in regards to changing. pt is now changed into appropriate attire.
--- NOTE | 2023-06-13 01:50 | ED.OVERDOSE ---
HPI - Overdose General Chief Complaint: Overdose Stated Complaint: Erotic Behavior/Sunstance abuse Time Seen by Provider: 06/13/23 01:49 Source: family and EMS Mode of arrival: EMS History of Present Illness HPI Narrative: patient with history of polysubstance abuse fentanyl and opiates and PCP use patient's mom called 911 as he was having volatile behavior shouting intermittently no signs of head injury or trauma Related Data Previous Rx's Medication Instructions Recorded albuterol sulfate 90 mcg/actuation 1 puff inhalation RQ4H PRN ASTHMA 07/09/22 aerosol inhaler (Ventolin HFA) #8.5 grams fluticasone furoate 100 1 ea inhalation RDAILY #1 ea 07/09/22 mcg-vilanterol 25 mcg/dose inhalation powder (Breo Ellipta) naloxone 4 mg/actuation nasal 4 mg intranasal Q2M PRN opioid 09/08/22 spray (Narcan) overdose #2 ea sertraline 25 mg tablet 50 mg (2 x 25 mg) PO DAILY #30 tabs 09/23/22 digital therapeutics, OUD (Reset-O #1 ea 09/30/22 Digital Brandy (OUD)) buprenorphine 12 mg-naloxone 3 mg 1 film sublingual Q24H #7 ea 10/07/22 sublingual film (Suboxone) albuterol sulfate 2.5 mg/3 mL 2.5 mg (3 mL) inhalation Q4-6H PRN 10/23/22 (0.083 %) solution for nebulization shortness of breath or wheezing #180 mL albuterol sulfate 90 mcg/actuation 2 puff inhalation Q4-6H PRN 10/23/22 aerosol inhaler shortness of breath or wheezing #6.7 grams doxycycline monohydrate 100 mg 100 mg PO BID 10 days #20 caps 10/23/22 capsule prednisone 20 mg tablet 40 mg (2 x 20 mg) PO DAILY 5 days 10/23/22 #10 tabs albuterol sulfate 90 mcg/actuation 1 inh inhalation QID PRN shortness 11/01/22 aerosol inhaler of breath or wheezing #8.5 grams azithromycin 250 mg tablet See Rx Instructions PO .COMPLEX #6 11/01/22 (Zithromax Z-Gustavo) tabs prednisone 20 mg tablet 20 mg PO BID #10 tabs 11/01/22 cyclobenzaprine 10 mg tablet 10 mg PO TID PRN muscle spasm #14 04/01/23 tabs ibuprofen 600 mg tablet 600 mg PO Q8H PRN pain #14 tabs 04/01/23 lidocaine 5 % topical patch 1 patch topical DAILY #15 ea 04/01/23 naproxen 500 mg tablet 500 mg PO BID PRN pain #20 tabs 04/29/23 prednisone 20 mg tablet 60 mg (3 x 20 mg) PO DAILY 7 days 05/08/23 #21 tabs albuterol sulfate 90 mcg/actuation 2 puff inhalation Q4-6H PRN 05/17/23 aerosol inhaler (ProAir HFA) shortness of breath or wheezing #8.5 grams Allergies Allergy/AdvReac Type Severity Reaction Status Date / Time seafood Allergy Severe Anaphylaxis Verified 06/07/23 09:00 Penicillins [PENICILLINS] Allergy Intermediate RASH Verified 06/07/23 09:00 Review of Systems Review of Systems: Yes Unobtainable due to mental status PMFSH Past Medical History Medical History Substance abuse Alcohol abuse Depression Opioid use disorder Asthma Social History Social History Household Members: Family Household Members Other:: Mom Housing: House Do you presently have visiting nurse or other home services: No Unable to assess alcohol history related to: Unknown Alcohol intake: current Alcohol intake frequency: does not drink Alcohol type: hard liquor Patient Tobacco Use Status: Current everyday Tobacco user Tobacco use type: Cigarette Cigarette Packs Per Day: 1 Cigarettes Per Day: 20.0 e-Cigarette/Vaping Use: Currently Using Use of substances other than those prescribed or required for medical reasons: Unknown Substance Use Type: Heroin and Opiates Advance Directives: No Advance Directives Information Provided: Yes service: No Current occupational status: employed Current occupation: right hand dominant Physical Exam Vital Signs: Vital Signs: Last Vital Signs Pulse 72 06/13/23 08:25 Resp 18 06/13/23 08:25 BP 102/63 06/13/23 08:25 Pulse Ox 95 06/13/23 08:25 O2 Del Method Room Air 06/13/23 08:25 BMI result Body Mass Index 27.4 Appearance: Alert. limited exam because of agitated Eyes: PERRLA, No Nystagmus ENT: Pharynx normal. Oral Mucosa moist AT NC Neck: Normal inspection. Neck supple. CVS: Normal heart rate and rhythm. Pulses normal. Respiratory: No respiratory distress. Equal air entry bilateral, no wheezing/rales/rhonchi Abdomen: Soft and nontender. Bowel sounds are present, Skin: Skin warm and dry. Normal skin color. Normal skin turgor. Extremities: No lower extremity edema. No calf tenderness Neuro: alert and awake agitated moving all 4 extremities Medications Administered Discontinued Medications Generic Name Dose Route Start Last Admin Trade Name Freq PRN Reason Stop Dose Admin Lorazepam 2 mg 06/13/23 01:51 06/13/23 01:56 Lorazepam 2 Mg/Ml Vial IM 06/13/23 01:52 2 mg STAT STA Administration Olanzapine 10 mg 06/13/23 01:51 06/13/23 01:57 Olanzapine 10 Mg Vial IM 06/13/23 01:52 10 mg STAT STA Administration Discharge Plan Discharge Clinical Impression: Polysubstance abuse Patient Disposition: Home, Self-Care Instructions: Polysubstance Abuse (ED) Additional Instructions: Stop abusing illicit substances Follow-up with detox Prescriptions: No Action albuterol sulfate [Ventolin HFA] 90 mcg/actuation Hfa Aerosol Inhaler 1 puff inhalation RQ4H PRN (Reason: ASTHMA) Qty: 8.5 0RF fluticasone furoate-vilanterol [Breo Ellipta] 100-25 mcg/dose Blister With Device 1 ea inhalation RDAILY Qty: 1 0RF albuterol sulfate 90 mcg/actuation HFA aerosol inhaler 2 puff inhalation Q4-6H PRN (Reason: shortness of breath or wheezing) Qty: 6.7 3RF Rx Instructions: May dispense medication equivalent accepted by patient's insurance albuterol sulfate 2.5 mg /3 mL (0.083 %) solution for nebulization 2.5 mg inhalation Q4-6H PRN (Reason: shortness of breath or wheezing) Qty: 180 2RF Rx Instructions: May dispense medication equivalent accepted by patient's insurance prednisone 20 mg tablet 40 mg PO DAILY 5 Days Qty: 10 0RF doxycycline monohydrate 100 mg capsule 100 mg PO BID 10 Days Qty: 20 0RF prednisone 20 mg tablet 20 mg PO BID Qty: 10 0RF albuterol sulfate 90 mcg/actuation HFA aerosol inhaler 1 inh inhalation QID PRN (Reason: shortness of breath or wheezing) Qty: 8.5 0RF azithromycin [Zithromax Z-Gustavo] 250 mg tablet See Rx Instructions .ROUTE .COMPLEX Qty: 6 0RF Rx Instructions: For 250 mg dose pack: take 500 mg today (day 1), then 250 mg for 4 days (days 2-5) cyclobenzaprine 10 mg tablet 10 mg PO TID PRN (Reason: muscle spasm) Qty: 14 0RF ibuprofen 600 mg tablet 600 mg PO Q8H PRN (Reason: pain) Qty: 14 0RF lidocaine 5 % adhesive patch,medicated 1 patch topical DAILY Qty: 15 0RF Rx Instructions: leave on most painful area for up to 12 hrs prednisone 20 mg tablet 60 mg PO DAILY 7 Days Qty: 21 0RF naproxen 500 mg tablet 500 mg PO BID PRN (Reason: pain) Qty: 20 0RF albuterol sulfate [ProAir HFA] 90 mcg/actuation HFA aerosol inhaler 2 puff inhalation Q4-6H PRN (Reason: shortness of breath or wheezing) Qty: 8.5 0RF naloxone [Narcan] 4 mg/actuation spray,non-aerosol 4 mg intranasal Q2M PRN (Reason: opioid overdose) Qty: 2 0RF Rx Instructions: spray 1 dose into ONE nostril; alternate nostrils w each dose until help arrives sertraline 25 mg tablet 50 mg PO DAILY Qty: 30 0RF (DME) Reset-O Digital Brandy (OUD) Misc See Rx Instructions .MEDSUPPLY Qty: 1 3RF Rx Instructions: As directed (3-4 times a week) 84 days buprenorphine-naloxone [Suboxone] 12-3 mg film 1 film sublingual Q24H Qty: 7 0RF
[2023-06-13] MEDS: LORazepam 2 MG/ML VIAL IM (01:56)
[2023-06-13] MEDS: OLANZapine 10 MG VIAL IM (01:57)
--- NOTE | 2023-06-13 05:39 | PC.NURSE ---
pt asleep in stretcher. resps are even and unlabored. no apparent distress. stretcher is in lowest position and brakes on.
[2023-06-13 05:43] VITALS: BP 115/54; PULSE 66; RESP 14; O2SAT 98
[2023-06-13 08:25] VITALS: BP 102/63; PULSE 72; RESP 18; O2SAT 95
--- NOTE | 2023-06-13 10:34 | MHC.RECOVSUP ---
Addendum entered by Len Terrazas 06/13/23 10:47: PT was still here and reports smoking weed that has dust in it but he has not been using anything else on top of it. Pt states he has overdosed 8 times with the most recent being 6 months ago and his last use of opiates was 1 week ago and he took one pill. Pt informs he has been taking 12mg Suboxone from his friend but is not currently prescribed and is unsure if he would like to be again. Pt was informed of walk in hours here at [facility] and reviewed harm reduction and overdose prevention. Pt has no questions or concerns at this time and would like to go home. Original Note: Attempted to meet with pt in ED17[facility] who is here for potential OD, however pt already left before being seen.
== END 2023-06-13 11:18 | disposition home or self-care (01) ==
PROVIDERS: Emergency Provider Internal Medicine
DX: F19.10 Other psychoactive substance abuse, uncomplicated (principal); R45.6 Violent behavior; F32.A Depression, unspecified; F41.9 Anxiety disorder, unspecified; F17.210 Nicotine dependence, cigarettes, uncomplicated; Z79.899 Other long term (current) drug therapy
CPT/HCPCS: 96372; 99284; J2060; J2359

== ENCOUNTER 2023-06-22 16:37 | Emergency (ER) | payer OTHER, SELFPAY ==
[2023-06-22 16:46] VITALS: BP 115/76; PULSE 73; O2SAT 93
[2023-06-22 17:09] VITALS: BP 108/58; PULSE 71; RESP 16; O2SAT 96; BMI 28.1
--- NOTE | 2023-06-22 17:29 | ED.GENADULT ---
HPI - General Adult General Chief complaint: ETOH/Substance Use Stated complaint: BELLIGERENT BEHAVIOR? PER EMS Time Seen by Provider: 06/22/23 17:08 Source: patient and EMS Mode of arrival: EMS History of Present Illness HPI narrative: 28-year-old male who presents via EMS after he was noted to be running and screaming and was reportedly belligerent with police, patient reports that he last used drugs approximately 2 days ago. He otherwise has no current complaints. Related Data Previous Rx's Medication Instructions Recorded albuterol sulfate 90 mcg/actuation 1 puff inhalation RQ4H PRN ASTHMA 07/09/22 aerosol inhaler (Ventolin HFA) #8.5 grams fluticasone furoate 100 1 ea inhalation RDAILY #1 ea 07/09/22 mcg-vilanterol 25 mcg/dose inhalation powder (Breo Ellipta) naloxone 4 mg/actuation nasal 4 mg intranasal Q2M PRN opioid 09/08/22 spray (Narcan) overdose #2 ea sertraline 25 mg tablet 50 mg (2 x 25 mg) PO DAILY #30 tabs 09/23/22 digital therapeutics, OUD (Reset-O #1 ea 09/30/22 Digital Brandy (OUD)) buprenorphine 12 mg-naloxone 3 mg 1 film sublingual Q24H #7 ea 10/07/22 sublingual film (Suboxone) albuterol sulfate 2.5 mg/3 mL 2.5 mg (3 mL) inhalation Q4-6H PRN 10/23/22 (0.083 %) solution for nebulization shortness of breath or wheezing #180 mL albuterol sulfate 90 mcg/actuation 2 puff inhalation Q4-6H PRN 10/23/22 aerosol inhaler shortness of breath or wheezing #6.7 grams doxycycline monohydrate 100 mg 100 mg PO BID 10 days #20 caps 10/23/22 capsule prednisone 20 mg tablet 40 mg (2 x 20 mg) PO DAILY 5 days 10/23/22 #10 tabs albuterol sulfate 90 mcg/actuation 1 inh inhalation QID PRN shortness 11/01/22 aerosol inhaler of breath or wheezing #8.5 grams azithromycin 250 mg tablet See Rx Instructions PO .COMPLEX #6 11/01/22 (Zithromax Z-Gustavo) tabs prednisone 20 mg tablet 20 mg PO BID #10 tabs 11/01/22 cyclobenzaprine 10 mg tablet 10 mg PO TID PRN muscle spasm #14 04/01/23 tabs ibuprofen 600 mg tablet 600 mg PO Q8H PRN pain #14 tabs 04/01/23 lidocaine 5 % topical patch 1 patch topical DAILY #15 ea 04/01/23 naproxen 500 mg tablet 500 mg PO BID PRN pain #20 tabs 04/29/23 prednisone 20 mg tablet 60 mg (3 x 20 mg) PO DAILY 7 days 05/08/23 #21 tabs albuterol sulfate 90 mcg/actuation 2 puff inhalation Q4-6H PRN 05/17/23 aerosol inhaler (ProAir HFA) shortness of breath or wheezing #8.5 grams Allergies Allergy/AdvReac Type Severity Reaction Status Date / Time seafood Allergy Severe Anaphylaxis Verified 06/22/23 17:10 Penicillins [PENICILLINS] Allergy Intermediate RASH Verified 06/22/23 17:10 Review of Systems Review of Systems: Pertinent positives and negatives as stated in HPI PMFSH Past Medical History Source: nursing notes reviewed Medical History Substance abuse Alcohol abuse Depression Opioid use disorder Asthma Social History Social History Household Members: Family Household Members Other:: Mom Housing: House Do you presently have visiting nurse or other home services: No Unable to assess alcohol history related to: Unknown Alcohol intake: current Alcohol intake frequency: does not drink Alcohol type: hard liquor Patient Tobacco Use Status: Current everyday Tobacco user Tobacco use type: Cigarette Cigarette Packs Per Day: 1 Cigarettes Per Day: 20.0 e-Cigarette/Vaping Use: Currently Using Substance Use Type: Heroin and Opiates Advance Directives: No Advance Directives Information Provided: No service: No Current occupational status: employed Current occupation: right hand dominant Physical Exam ED Vital Signs: Vital Signs - 24 hr 06/22/23 17:09 Pulse Rate 71 Respiratory Rate 16 Blood Pressure 108/58 L Pulse Oximetry 96 Oxygen Delivery Method Room Air BMI result Body Mass Index 28.1 VITAL SIGNS: Reviewed. GENERAL: Well developed, well nourished, in no acute distress. HEAD: Normocephalic/atraumatic EYES: PERRLA, EOMI LUNGS: Normal breath sounds. No adventitious sounds or accessory muscle use. SpO2<96> CARDIOVASCULAR: Regular rate and rhythm without noted murmurs ABDOMEN: Soft, non-tender, non-distended with bowel sounds. MUSCULOSKELETAL: No tenderness, deformities, or effusions noted on gross inspection. EXTREMITIES: No cyanosis, clubbing or edema. SKIN: Inspection of the skin reveals no rashes NEUROLOGIC: Alert and oriented x 4. Strength and sensation to light touch were grossly intact x 4. Medical Decision Making Medical Decision Making MDM Narrative: 28-year-old male with history and clinical presentation consistent with chronic drug use, patient states that he is interested in resuming Suboxone program, he discussed extensively with the power and recovery superintendent who will provide the patient with information and arrange for follow-up appointment with Jacqueline Caal. Although patient reports that he last used 2 days ago he appears under the influence with some drowsiness and I would not initiate treatment at this time. There is no concern for suicidal or homicidal ideation and patient has declined detox at this time. He is noted to be tolerating food and water and is otherwise stable for discharge. He was discharged with home Narcan. Differential Diagnosis Differential Diagnoses: The differential diagnosis associated with the presentation includes Please see the discussion above Admission/Observation Consideration of admission/observation: Escalation of care including admission/observation considered Please see the discussion above External Record Review External record reviewed: Outpatient record, Prior outpatient labs and Prior outpatient radiology Chronic Conditions chronic IVDA Discharge Plan Discharge Clinical Impression: Polysubstance use disorder Patient Disposition: Home, Self-Care Instructions: Polysubstance Abuse (ED) Additional Instructions: Follow-up with the scheduled appointment with Jacqueline Caal, you have been given information regarding the location/date/time. You have also been discharged with home Narcan. Return to the emergency room for any worsening of your symptoms. Prescriptions: No Action albuterol sulfate [Ventolin HFA] 90 mcg/actuation Hfa Aerosol Inhaler 1 puff inhalation RQ4H PRN (Reason: ASTHMA) Qty: 8.5 0RF fluticasone furoate-vilanterol [Breo Ellipta] 100-25 mcg/dose Blister With Device 1 ea inhalation RDAILY Qty: 1 0RF albuterol sulfate 90 mcg/actuation HFA aerosol inhaler 2 puff inhalation Q4-6H PRN (Reason: shortness of breath or wheezing) Qty: 6.7 3RF Rx Instructions: May dispense medication equivalent accepted by patient's insurance albuterol sulfate 2.5 mg /3 mL (0.083 %) solution for nebulization 2.5 mg inhalation Q4-6H PRN (Reason: shortness of breath or wheezing) Qty: 180 2RF Rx Instructions: May dispense medication equivalent accepted by patient's insurance prednisone 20 mg tablet 40 mg PO DAILY 5 Days Qty: 10 0RF doxycycline monohydrate 100 mg capsule 100 mg PO BID 10 Days Qty: 20 0RF prednisone 20 mg tablet 20 mg PO BID Qty: 10 0RF albuterol sulfate 90 mcg/actuation HFA aerosol inhaler 1 inh inhalation QID PRN (Reason: shortness of breath or wheezing) Qty: 8.5 0RF azithromycin [Zithromax Z-Gustavo] 250 mg tablet See Rx Instructions .ROUTE .COMPLEX Qty: 6 0RF Rx Instructions: For 250 mg dose pack: take 500 mg today (day 1), then 250 mg for 4 days (days 2-5) cyclobenzaprine 10 mg tablet 10 mg PO TID PRN (Reason: muscle spasm) Qty: 14 0RF ibuprofen 600 mg tablet 600 mg PO Q8H PRN (Reason: pain) Qty: 14 0RF lidocaine 5 % adhesive patch,medicated 1 patch topical DAILY Qty: 15 0RF Rx Instructions: leave on most painful area for up to 12 hrs prednisone 20 mg tablet 60 mg PO DAILY 7 Days Qty: 21 0RF naproxen 500 mg tablet 500 mg PO BID PRN (Reason: pain) Qty: 20 0RF albuterol sulfate [ProAir HFA] 90 mcg/actuation HFA aerosol inhaler 2 puff inhalation Q4-6H PRN (Reason: shortness of breath or wheezing) Qty: 8.5 0RF naloxone [Narcan] 4 mg/actuation spray,non-aerosol 4 mg intranasal Q2M PRN (Reason: opioid overdose) Qty: 2 0RF Rx Instructions: spray 1 dose into ONE nostril; alternate nostrils w each dose until help arrives sertraline 25 mg tablet 50 mg PO DAILY Qty: 30 0RF (DME) Reset-O Digital Brandy (OUD) Misc See Rx Instructions .MEDSUPPLY Qty: 1 3RF Rx Instructions: As directed (3-4 times a week) 84 days buprenorphine-naloxone [Suboxone] 12-3 mg film 1 film sublingual Q24H Qty: 7 0RF
--- NOTE | 2023-06-22 18:40 | MHC.RECOVSUP ---
Met with pt in ED22[facility] who was here for IRINA. Pt informs he has not used today but he had been using about 2 bundles nasally of heroin a day and would like to get back onto Suboxone. Pt informed he can come into the [facility] tomorrow to get started and pt verbalized understanding and had no other questions or concerns at this time.
[2023-06-22] MEDS: Naloxone HCl Nasal TAKE HOME 4 MG SPRAY 8 MG NOSTRILALT (19:19)
--- NOTE | 2023-06-22 19:23 | PC.NURSE ---
care assumed of patient at this time; pt is sitting up in stretcher ready for DC. DC instructions reviewed and take home narcan given. pt walked over to to obtain his belongings.
== END 2023-06-22 19:25 | disposition home or self-care (01) ==
PROVIDERS: Emergency Provider Student in an Organized Health Care Education/Training Program
DX: F11.10 Opioid abuse, uncomplicated (principal); F17.210 Nicotine dependence, cigarettes, uncomplicated; Z71.6 Tobacco abuse counseling; Z79.899 Other long term (current) drug therapy; Z71.51 Drug abuse counseling and surveillance of drug abuser
CPT/HCPCS: 99282

== ENCOUNTER 2023-06-27 19:40 | Emergency (ER) | payer OTHER, SELFPAY ==
[2023-06-27] MEDS: Albuterol Sulfate 90 MCG 8 GM INHALER 4 PUFF INHALE (19:56)
[2023-06-27 20:01] VITALS: BP 152/60; PULSE 113; O2SAT 94; BMI 21.5
--- NOTE | 2023-06-27 20:02 | ED.OVERDOSE ---
HPI - Overdose General Chief Complaint: ETOH/Substance Use Stated Complaint: SUSPECTED ETOH/DRUG USE. SUBSTANCES TAKEN UNK. Time Seen by Provider: 06/27/23 19:47 Source: patient and police Mode of arrival: EMS Limitations: no limitations History of Present Illness HPI Narrative: Patient with history of fentanyl abuse with frequent ED visits for aggressive behavior at home also does have history of asthma comes here because he was very agitated at home mother was scared patient denied any PCP use Related Data Previous Rx's Medication Instructions Recorded albuterol sulfate 90 mcg/actuation 1 puff inhalation RQ4H PRN ASTHMA 07/09/22 aerosol inhaler (Ventolin HFA) #8.5 grams fluticasone furoate 100 1 ea inhalation RDAILY #1 ea 07/09/22 mcg-vilanterol 25 mcg/dose inhalation powder (Breo Ellipta) naloxone 4 mg/actuation nasal 4 mg intranasal Q2M PRN opioid 09/08/22 spray (Narcan) overdose #2 ea sertraline 25 mg tablet 50 mg (2 x 25 mg) PO DAILY #30 tabs 09/23/22 digital therapeutics, OUD (Reset-O #1 ea 09/30/22 Digital Brandy (OUD)) buprenorphine 12 mg-naloxone 3 mg 1 film sublingual Q24H #7 ea 10/07/22 sublingual film (Suboxone) albuterol sulfate 2.5 mg/3 mL 2.5 mg (3 mL) inhalation Q4-6H PRN 10/23/22 (0.083 %) solution for nebulization shortness of breath or wheezing #180 mL albuterol sulfate 90 mcg/actuation 2 puff inhalation Q4-6H PRN 10/23/22 aerosol inhaler shortness of breath or wheezing #6.7 grams doxycycline monohydrate 100 mg 100 mg PO BID 10 days #20 caps 10/23/22 capsule prednisone 20 mg tablet 40 mg (2 x 20 mg) PO DAILY 5 days 10/23/22 #10 tabs albuterol sulfate 90 mcg/actuation 1 inh inhalation QID PRN shortness 11/01/22 aerosol inhaler of breath or wheezing #8.5 grams azithromycin 250 mg tablet See Rx Instructions PO .COMPLEX #6 11/01/22 (Zithromax Z-Gustavo) tabs prednisone 20 mg tablet 20 mg PO BID #10 tabs 11/01/22 cyclobenzaprine 10 mg tablet 10 mg PO TID PRN muscle spasm #14 04/01/23 tabs ibuprofen 600 mg tablet 600 mg PO Q8H PRN pain #14 tabs 04/01/23 lidocaine 5 % topical patch 1 patch topical DAILY #15 ea 04/01/23 naproxen 500 mg tablet 500 mg PO BID PRN pain #20 tabs 04/29/23 prednisone 20 mg tablet 60 mg (3 x 20 mg) PO DAILY 7 days 05/08/23 #21 tabs albuterol sulfate 90 mcg/actuation 2 puff inhalation Q4-6H PRN 05/17/23 aerosol inhaler (ProAir HFA) shortness of breath or wheezing #8.5 grams albuterol sulfate 90 mcg/actuation 2 puff inhalation Q4-6H PRN 06/27/23 aerosol inhaler (ProAir HFA) shortness of breath or wheezing #8.5 grams prednisone 20 mg tablet 40 mg (2 x 20 mg) PO DAILY #10 tabs 06/27/23 Allergies Allergy/AdvReac Type Severity Reaction Status Date / Time seafood Allergy Severe Anaphylaxis Verified 06/22/23 17:10 Penicillins [PENICILLINS] Allergy Intermediate RASH Verified 06/22/23 17:10 Review of Systems Review of Systems: Yes all other systems are reviewed and are negative PMFSH Past Medical History Medical History Substance abuse Alcohol abuse Depression Opioid use disorder Asthma Social History Social History Household Members: Family Household Members Other:: Mom Housing: House Do you presently have visiting nurse or other home services: No Unable to assess alcohol history related to: Unknown Alcohol intake: current Alcohol intake frequency: does not drink Alcohol type: hard liquor Patient Tobacco Use Status: Current everyday Tobacco user Tobacco use type: Cigarette Cigarette Packs Per Day: 1 Cigarettes Per Day: 20.0 e-Cigarette/Vaping Use: Currently Using Substance Use Type: Heroin and Opiates service: No Current occupational status: employed Current occupation: right hand dominant Physical Exam Vital Signs: Vital Signs: BMI result Body Mass Index 21.5 Appearance: Alert. Oriented X3. No acute distress. Eyes: PERRLA, No Nystagmus ENT: Pharynx normal. Oral Mucosa moist atraumatic normocephalic Neck: Normal inspection. Neck supple. CVS: Normal heart rate and rhythm. Pulses normal. Respiratory: No respiratory distress. Equal air entry bilateral, bilateral wheezing Abdomen: Soft and nontender. Bowel sounds are present, Skin: Skin warm and dry. Normal skin color. Normal skin turgor. Extremities: No lower extremity edema. No calf tenderness Neuro: Oriented X 3. No motor deficit. Medications Administered Discontinued Medications Generic Name Dose Route Start Last Admin Trade Name Freq PRN Reason Stop Dose Admin Albuterol Sulfate 4 puff 06/27/23 19:47 06/27/23 19:56 Albuterol Sulfate 90 Mcg 8 Gm Inhaler INHALE 06/27/23 19:48 4 puff ONCE ONE Administration Medical Decision Making Medical Decision Making [facility] Narrative: Patient refused to stay in the ER for long was given inhaler Decadron advised not to use drugs patient was calm during stay in the ER Discharge Plan Discharge Clinical Impression: Polysubstance abuse, Asthma Patient Disposition: Home, Self-Care Instructions: Asthma (ED), Polysubstance Abuse (ED) Additional Instructions: Stop using drugs Take inhaler and prednisone as prescribed Prescriptions: New albuterol sulfate [ProAir HFA] 90 mcg/actuation HFA aerosol inhaler 2 puff inhalation Q4-6H PRN (Reason: shortness of breath or wheezing) Qty: 8.5 0RF prednisone 20 mg tablet 40 mg PO DAILY Qty: 10 0RF No Action albuterol sulfate [Ventolin HFA] 90 mcg/actuation Hfa Aerosol Inhaler 1 puff inhalation RQ4H PRN (Reason: ASTHMA) Qty: 8.5 0RF fluticasone furoate-vilanterol [Breo Ellipta] 100-25 mcg/dose Blister With Device 1 ea inhalation RDAILY Qty: 1 0RF albuterol sulfate 90 mcg/actuation HFA aerosol inhaler 2 puff inhalation Q4-6H PRN (Reason: shortness of breath or wheezing) Qty: 6.7 3RF Rx Instructions: May dispense medication equivalent accepted by patient's insurance albuterol sulfate 2.5 mg /3 mL (0.083 %) solution for nebulization 2.5 mg inhalation Q4-6H PRN (Reason: shortness of breath or wheezing) Qty: 180 2RF Rx Instructions: May dispense medication equivalent accepted by patient's insurance prednisone 20 mg tablet 40 mg PO DAILY 5 Days Qty: 10 0RF doxycycline monohydrate 100 mg capsule 100 mg PO BID 10 Days Qty: 20 0RF prednisone 20 mg tablet 20 mg PO BID Qty: 10 0RF albuterol sulfate 90 mcg/actuation HFA aerosol inhaler 1 inh inhalation QID PRN (Reason: shortness of breath or wheezing) Qty: 8.5 0RF azithromycin [Zithromax Z-Gustavo] 250 mg tablet See Rx Instructions .ROUTE .COMPLEX Qty: 6 0RF Rx Instructions: For 250 mg dose pack: take 500 mg today (day 1), then 250 mg for 4 days (days 2-5) cyclobenzaprine 10 mg tablet 10 mg PO TID PRN (Reason: muscle spasm) Qty: 14 0RF ibuprofen 600 mg tablet 600 mg PO Q8H PRN (Reason: pain) Qty: 14 0RF lidocaine 5 % adhesive patch,medicated 1 patch topical DAILY Qty: 15 0RF Rx Instructions: leave on most painful area for up to 12 hrs prednisone 20 mg tablet 60 mg PO DAILY 7 Days Qty: 21 0RF naproxen 500 mg tablet 500 mg PO BID PRN (Reason: pain) Qty: 20 0RF albuterol sulfate [ProAir HFA] 90 mcg/actuation HFA aerosol inhaler 2 puff inhalation Q4-6H PRN (Reason: shortness of breath or wheezing) Qty: 8.5 0RF naloxone [Narcan] 4 mg/actuation spray,non-aerosol 4 mg intranasal Q2M PRN (Reason: opioid overdose) Qty: 2 0RF Rx Instructions: spray 1 dose into ONE nostril; alternate nostrils w each dose until help arrives sertraline 25 mg tablet 50 mg PO DAILY Qty: 30 0RF (DME) Reset-O Digital Brandy (OUD) Misc See Rx Instructions .MEDSUPPLY Qty: 1 3RF Rx Instructions: As directed (3-4 times a week) 84 days buprenorphine-naloxone [Suboxone] 12-3 mg film 1 film sublingual Q24H Qty: 7 0RF
[2023-06-27 20:09] VITALS: BP 114/78; PULSE 110; RESP 16; TEMP 37.1; O2SAT 93
[2023-06-27] MEDS: dexAMETHasone 2 MG TABLET 10 MG PO (20:44)
[2023-06-27 21:15] VITALS: PULSE 98; RESP 18; O2SAT 97
== END 2023-06-27 21:16 | disposition home or self-care (01) ==
PROVIDERS: Emergency Provider Internal Medicine
DX: J45.909 Unspecified asthma, uncomplicated (principal); F19.10 Other psychoactive substance abuse, uncomplicated; R45.1 Restlessness and agitation; F11.20 Opioid dependence, uncomplicated; F17.210 Nicotine dependence, cigarettes, uncomplicated
CPT/HCPCS: 99283; 99284; J8540

== ENCOUNTER 2023-07-18 16:43 | Emergency (ER) | payer OTHER, SELFPAY ==
--- NOTE | 2023-07-18 17:30 | ED_ITS ---
HPI - General Adult General Chief complaint: Animal Bite Stated complaint: finger lac dog bite Time Seen by Provider: 07/18/23 17:37 History of Present Illness HPI narrative: 28-year-old male presents for evaluation of a dog bite on his right third finger 2 days ago. He states the dog is vaccinated. He is UTD on his tetanus shot. He denies fevers, chills, malaise. He has pain in the right finger, but full ROM of his b/l fingers. Related Data Previous Rx's Medication Instructions Recorded albuterol sulfate 90 mcg/actuation 1 puff inhalation RQ4H PRN ASTHMA 07/09/22 aerosol inhaler (Ventolin HFA) #8.5 grams fluticasone furoate 100 1 ea inhalation RDAILY #1 ea 07/09/22 mcg-vilanterol 25 mcg/dose inhalation powder (Breo Ellipta) naloxone 4 mg/actuation nasal 4 mg intranasal Q2M PRN opioid 09/08/22 spray (Narcan) overdose #2 ea sertraline 25 mg tablet 50 mg (2 x 25 mg) PO DAILY #30 tabs 09/23/22 digital therapeutics, OUD (Reset-O #1 ea 09/30/22 Digital Brandy (OUD)) buprenorphine 12 mg-naloxone 3 mg 1 film sublingual Q24H #7 ea 10/07/22 sublingual film (Suboxone) albuterol sulfate 2.5 mg/3 mL 2.5 mg (3 mL) inhalation Q4-6H PRN 10/23/22 (0.083 %) solution for nebulization shortness of breath or wheezing #180 mL albuterol sulfate 90 mcg/actuation 2 puff inhalation Q4-6H PRN 10/23/22 aerosol inhaler shortness of breath or wheezing #6.7 grams doxycycline monohydrate 100 mg 100 mg PO BID 10 days #20 caps 10/23/22 capsule prednisone 20 mg tablet 40 mg (2 x 20 mg) PO DAILY 5 days 10/23/22 #10 tabs albuterol sulfate 90 mcg/actuation 1 inh inhalation QID PRN shortness 11/01/22 aerosol inhaler of breath or wheezing #8.5 grams azithromycin 250 mg tablet See Rx Instructions PO .COMPLEX #6 11/01/22 (Zithromax Z-Gustavo) tabs prednisone 20 mg tablet 20 mg PO BID #10 tabs 11/01/22 cyclobenzaprine 10 mg tablet 10 mg PO TID PRN muscle spasm #14 04/01/23 tabs ibuprofen 600 mg tablet 600 mg PO Q8H PRN pain #14 tabs 04/01/23 lidocaine 5 % topical patch 1 patch topical DAILY #15 ea 04/01/23 naproxen 500 mg tablet 500 mg PO BID PRN pain #20 tabs 04/29/23 prednisone 20 mg tablet 60 mg (3 x 20 mg) PO DAILY 7 days 05/08/23 #21 tabs albuterol sulfate 90 mcg/actuation 2 puff inhalation Q4-6H PRN 05/17/23 aerosol inhaler (ProAir HFA) shortness of breath or wheezing #8.5 grams albuterol sulfate 90 mcg/actuation 2 puff inhalation Q4-6H PRN 06/27/23 aerosol inhaler (ProAir HFA) shortness of breath or wheezing #8.5 grams prednisone 20 mg tablet 40 mg (2 x 20 mg) PO DAILY #10 tabs 06/27/23 doxycycline hyclate 100 mg capsule 100 mg PO BID 7 days #14 caps 07/18/23 metronidazole 500 mg tablet 500 mg PO BID 7 days #14 tabs 07/18/23 Allergies Allergy/AdvReac Type Severity Reaction Status Date / Time seafood Allergy Severe Anaphylaxis Verified 07/18/23 17:30 Penicillins [PENICILLINS] Allergy Intermediate RASH Verified 07/18/23 17:30 Review of Systems Review of Systems: Constitutional : No Weight loss, No Fever, No Chills, No Night Sweats, No Fatigue, No Malaise Eyes: No Eye Pain, No Swelling, No Redness, No Foreign Body, No Discharge, No Vision Changes Cardiovascular : No Chest Pain, No SOB, No Dyspnea on Exertion, No Orthopnea, No Edema, No Palpitations Respiratory : No Cough, No Sputum, No Wheezing, No Smoke Exposure, No Dyspnea Gastrointestinal : No Nausea, No Vomiting, No Diarrhea, No Constipation, No abdominal Pain, No Hematochezia, No Melena Musculoskeletal : + dog bite with finger pain and swelling. No joint pain, No Myalgias, No Joint Swelling Skin : No Skin Lesions, No rash Neuro : No Weakness, No Numbness, No Paresthesias, No Loss of Consciousness, No Dizziness, No Headache Psych : No Anxiety/Panic, No Depression, No SI/HI/AH/VH, No Social Issues, [facility] Past Medical History Medical History Substance abuse Alcohol abuse Depression Opioid use disorder Asthma Social History Social History Household Members: Family Household Members Other:: Mom Housing: House Do you presently have visiting nurse or other home services: No Unable to assess alcohol history related to: Unknown Alcohol intake: current Alcohol intake frequency: does not drink Alcohol type: hard liquor Patient Tobacco Use Status: Current everyday Tobacco user Tobacco use type: Cigarette Cigarette Packs Per Day: 1 Cigarettes Per Day: 20.0 e-Cigarette/Vaping Use: Currently Using Substance Use Type: Heroin and Opiates Advance Directives: No Advance Directives Information Provided: Yes service: No Current occupational status: employed Current occupation: right hand dominant Physical Exam ED Vital Signs: Vital Signs - 24 hr 07/18/23 17:31 Temperature 98.4 F Pulse Rate 68 Respiratory Rate 18 Blood Pressure 126/60 Pulse Oximetry 100 Oxygen Delivery Method Room Air BMI result Body Mass Index 26.9 VSS Appearance: Alert.? Oriented X3.? No acute distress.? Head: Normocephalic, atraumatic, no step-offs or deformities Eyes: Pupils equal, round and reactive to light.? CVS: Normal heart rate and rhythm.? Pulses normal.? Respiratory: No respiratory distress.? Breath sounds normal.? Abdomen: Soft and nontender.? Skin: Skin warm and dry.? Normal skin color.? Normal skin turgor.? Extremities: +puncture wound with overlying erythema to right third finger. Subungal hematoma on right third finger. No signs of paronychia. Full ROM of fingers b/l. full sensation b/l. 5/5 strength to bilateral upper extremities. Brachial, radial, ulnar pulses 2+ symmetric bilaterally. Back: No midline tenderness, no C-spine tenderness, full range of motion, no CVA tenderness bilaterally Neuro: Oriented X 3.? No motor deficit.? No sensory deficit. CN 2-12 intact Course Course Course Narrative: This is an RME: Additional HPI, ROS, PE not included below will be deferred to primary provider. 28-year-old male presents for evaluation of a dog bite on his right third finger 2 days ago. He states the dog is vaccinated. He is UTD on his tetanus shot. He denies fevers, chills, malaise. He has full ROM of his b/l fingers. Reevaluation(s) Reevaluation #1: Educated patient on diagnosis and treatment plan, answered all question, patient verbalizes understanding. At this time patient will be discharged home, advised to return with new or worsening symptoms. Educated on worrisome signs and symptoms and when to return. At this time I feel comfortable discharge home. Medical Decision Making Medical Decision Making MDM Narrative: 28-year-old male presents for evaluation of dog bite on the right third finger PE revealed puncture wound with overlying cellulitis on the right third finger. Sensation and pulses intact b/l. Full strength and ROM b/l. Likely puncture wound with overlying cellulitis secondary to dog bite without neurovascular compromise, threat to limb, septic joint. Plan: discharge home with antibiotics Differential Diagnosis Differential Diagnoses: The differential diagnosis associated with the presentation includes Likely puncture wound with overlying cellulitis secondary to dog bite without neurovascular compromise, threat to limb, septic joint. Admission/Observation Consideration of admission/observation: Escalation of care including admission/observation considered unlikely Prescription Management I considered prescription management with: Antibiotic Discharge Plan Discharge Clinical Impression: Dog bite Patient Disposition: Home, Self-Care Instructions: Animal Bite (ED) Additional Instructions: Take your medications as prescribed. If you were prescribed antibiotics today, it is important that you take your medication to their entirety, do not skip any doses, do not finish them early. Soak finger in Epsom salt 3 times a day. Keep finger clean and dry. If there is worsening redness or swelling, seek medical attention immediately. Follow-up with your primary care provider this week. Return to the emergency department with new or worsening symptoms. Such as fevers, chills, chest pain, shortness of breath, nausea, vomiting, dizziness, headache, vision changes, lethargy In case of emergency call 911 Prescriptions: New doxycycline hyclate 100 mg capsule 100 mg PO BID 7 Days Qty: 14 0RF metronidazole 500 mg tablet 500 mg PO BID 7 Days Qty: 14 0RF No Action albuterol sulfate [Ventolin HFA] 90 mcg/actuation Hfa Aerosol Inhaler 1 puff inhalation RQ4H PRN (Reason: ASTHMA) Qty: 8.5 0RF fluticasone furoate-vilanterol [Breo Ellipta] 100-25 mcg/dose Blister With Device 1 ea inhalation RDAILY Qty: 1 0RF albuterol sulfate 90 mcg/actuation HFA aerosol inhaler 2 puff inhalation Q4-6H PRN (Reason: shortness of breath or wheezing) Qty: 6.7 3RF Rx Instructions: May dispense medication equivalent accepted by patient's insurance albuterol sulfate 2.5 mg /3 mL (0.083 %) solution for nebulization 2.5 mg inhalation Q4-6H PRN (Reason: shortness of breath or wheezing) Qty: 180 2RF Rx Instructions: May dispense medication equivalent accepted by patient's insurance prednisone 20 mg tablet 40 mg PO DAILY 5 Days Qty: 10 0RF doxycycline monohydrate 100 mg capsule 100 mg PO BID 10 Days Qty: 20 0RF prednisone 20 mg tablet 20 mg PO BID Qty: 10 0RF albuterol sulfate 90 mcg/actuation HFA aerosol inhaler 1 inh inhalation QID PRN (Reason: shortness of breath or wheezing) Qty: 8.5 0RF azithromycin [Zithromax Z-Gustavo] 250 mg tablet See Rx Instructions .ROUTE .COMPLEX Qty: 6 0RF Rx Instructions: For 250 mg dose pack: take 500 mg today (day 1), then 250 mg for 4 days (days 2-5) cyclobenzaprine 10 mg tablet 10 mg PO TID PRN (Reason: muscle spasm) Qty: 14 0RF ibuprofen 600 mg tablet 600 mg PO Q8H PRN (Reason: pain) Qty: 14 0RF lidocaine 5 % adhesive patch,medicated 1 patch topical DAILY Qty: 15 0RF Rx Instructions: leave on most painful area for up to 12 hrs prednisone 20 mg tablet 60 mg PO DAILY 7 Days Qty: 21 0RF naproxen 500 mg tablet 500 mg PO BID PRN (Reason: pain) Qty: 20 0RF albuterol sulfate [ProAir HFA] 90 mcg/actuation HFA aerosol inhaler 2 puff inhalation Q4-6H PRN (Reason: shortness of breath or wheezing) Qty: 8.5 0RF albuterol sulfate [ProAir HFA] 90 mcg/actuation HFA aerosol inhaler 2 puff inhalation Q4-6H PRN (Reason: shortness of breath or wheezing) Qty: 8.5 0RF prednisone 20 mg tablet 40 mg PO DAILY Qty: 10 0RF naloxone [Narcan] 4 mg/actuation spray,non-aerosol 4 mg intranasal Q2M PRN (Reason: opioid overdose) Qty: 2 0RF Rx Instructions: spray 1 dose into ONE nostril; alternate nostrils w each dose until help arrives sertraline 25 mg tablet 50 mg PO DAILY Qty: 30 0RF (DME) Reset-O Digital Brandy (OUD) Misc See Rx Instructions .MEDSUPPLY Qty: 1 3RF Rx Instructions: As directed (3-4 times a week) 84 days buprenorphine-naloxone [Suboxone] 12-3 mg film 1 film sublingual Q24H Qty: 7 0RF Referrals: Physician,Unknown J [Physician] - 2 days Interventions: ED Discharge Assessment Last Done: 07/18/23 17:38 Discharge Date/Time: 07/18/23 17:39
[2023-07-18 17:31] VITALS: BP 126/60; PULSE 68; RESP 18; TEMP 36.9; O2SAT 100; BMI 26.9
== END 2023-07-18 17:39 | disposition home or self-care (01) ==
PROVIDERS: Emergency Provider Emergency Medicine
DX: S61.252A Open bite of right middle finger without damage to nail, initial encounter (principal); S60.131A Contusion of right middle finger with damage to nail, initial encounter; W54.0XXA Bitten by dog, initial encounter; F17.210 Nicotine dependence, cigarettes, uncomplicated; Y93.9 Activity, unspecified; Y92.9 Unspecified place or not applicable; Y99.9 Unspecified external cause status
CPT/HCPCS: 99282; 99283

== ENCOUNTER 2023-07-24 19:32 | Emergency (ER) | payer OTHER, SELFPAY ==
--- NOTE | ~2023-07-24 | XR_ITS ---
EXAMINATION: XR CHEST CLINICAL INFORMATION: Shortness of breath. COMPARISON: Prior chest radiographs, most recently 11/01/2022. TECHNIQUE: Frontal view of the chest was obtained. FINDINGS: No significant abnormality is noted involving the heart, lungs, mediastinum, bony thorax or soft tissues. There is gaseous distention of the stomach. XR/XR chest 1V IMPRESSION: No active cardiopulmonary disease.
[2023-07-24 19:38] VITALS: PULSE 107; O2SAT 46
[2023-07-24 19:40] VITALS: BP 129/89; PULSE 98; RESP 20; O2SAT 98; BMI 24.4
--- NOTE | 2023-07-24 19:43 | ECG_ITS ---
Test Reason : OVERDOSE Blood Pressure : / mmHG Vent. Rate : 081 BPM Atrial Rate : 081 BPM P-R Int : 160 ms QRS Dur : 100 ms QT Int : 350 ms P-R-T Axes : 069 067 023 degrees QTc Int : 406 ms Normal sinus rhythm Normal ECG When compared with ECG of 04-SEP-2022 14:29, No significant change was found Referred By: Brenda Kothari Electronically Signed By:TAMMY DON
--- NOTE | 2023-07-24 19:52 | PC.NURSE ---
pt biba from a bar, per ems, question of heroin overdose. pt was sating 46% on room air upon ems arrival, pt placed on non rebreather on 15L and sating at 98%. pt was given 4mg of narcan on scene. upon arrival, pt sating 98% on room air, capanography 38 at this time- respiratory at bedside. pt alert to name at this time, but becomes drowsy. provider at bedside. 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
[2023-07-24 19:53] LABS: MANUAL DIFF FLAG NO
[2023-07-24 19:54] LABS: Basophils Percent Auto 0.4 % (0-2); Eosinophils Absolute Auto 0.2 X10*3/uL (0.0-0.4); Eosinophils Percent Auto 1.6 % (0-4); Hemoglobin 15.8 g/dl (14.0-18.0); Imm Gran Abs Auto 0.03 X10*3/uL (0.00-0.03); Imm Gran Pct Auto 0.3 % (0.0-0.4); Lymphocytes Absolute Auto 2.6 X10*3/uL (1.2-4.9); Lymphocytes Percent Auto 25.1 % (20-40); Mean Corpuscular HGB Conc 32.9 g/dl (31.0-36.0); Mean Corpuscular Hemoglobin 28.7 pg (27.0-33.0); Mean Corpuscular Volume 87.3 fL (80.0-98.0); Mean Platelet Volume 9.8 fL (9.4-12.4); Monocytes Absolute Auto 0.8 X10*3/uL (0.1-1.2); Monocytes Percent Auto 7.4 % (2-11); Neutrophils Absolute Auto 6.7 x10*3/uL (2.0-8.3); Neutrophils Percent Auto 65.2 % (45-73); Platelet Count 383 X10*3/uL (160-400); Red Cell Distribution Width 13.1 % (11.0-16.0); White Blood Count 10.3 X10*3/uL (4.8-10.8)
--- NOTE | 2023-07-24 19:59 | ED_ITS ---
HPI - Overdose General Chief Complaint: Overdose Stated Complaint: ETOH SUBSTANCE ABUSE COMBATIVE Time Seen by Provider: 07/24/23 19:43 Source: patient, EMS and police Mode of arrival: EMS History of Present Illness HPI Narrative: 28-year-old male who was found by the police to be banging his head on the light pole and intermittently yelling, he then slowed his breathing and EMS was called he was noted to be hypoxic and was given Narcan. Reportedly patient's oxygenation was 46%. Patient arrives on 15 L non-rebreather. Patient denies any chest pain or shortness of breath but is unable to verbalize what drugs he took today Related Data Previous Rx's Medication Instructions Recorded albuterol sulfate 90 mcg/actuation 1 puff inhalation RQ4H PRN ASTHMA 07/09/22 aerosol inhaler (Ventolin HFA) #8.5 grams fluticasone furoate 100 1 ea inhalation RDAILY #1 ea 07/09/22 mcg-vilanterol 25 mcg/dose inhalation powder (Breo Ellipta) naloxone 4 mg/actuation nasal 4 mg intranasal Q2M PRN opioid 09/08/22 spray (Narcan) overdose #2 ea sertraline 25 mg tablet 50 mg (2 x 25 mg) PO DAILY #30 tabs 09/23/22 digital therapeutics, OUD (Reset-O #1 ea 09/30/22 Digital Brandy (OUD)) buprenorphine 12 mg-naloxone 3 mg 1 film sublingual Q24H #7 ea 10/07/22 sublingual film (Suboxone) albuterol sulfate 2.5 mg/3 mL 2.5 mg (3 mL) inhalation Q4-6H PRN 10/23/22 (0.083 %) solution for nebulization shortness of breath or wheezing #180 mL albuterol sulfate 90 mcg/actuation 2 puff inhalation Q4-6H PRN 10/23/22 aerosol inhaler shortness of breath or wheezing #6.7 grams doxycycline monohydrate 100 mg 100 mg PO BID 10 days #20 caps 10/23/22 capsule prednisone 20 mg tablet 40 mg (2 x 20 mg) PO DAILY 5 days 10/23/22 #10 tabs albuterol sulfate 90 mcg/actuation 1 inh inhalation QID PRN shortness 11/01/22 aerosol inhaler of breath or wheezing #8.5 grams azithromycin 250 mg tablet See Rx Instructions PO .COMPLEX #6 11/01/22 (Zithromax Z-Gustavo) tabs prednisone 20 mg tablet 20 mg PO BID #10 tabs 11/01/22 cyclobenzaprine 10 mg tablet 10 mg PO TID PRN muscle spasm #14 04/01/23 tabs ibuprofen 600 mg tablet 600 mg PO Q8H PRN pain #14 tabs 04/01/23 lidocaine 5 % topical patch 1 patch topical DAILY #15 ea 04/01/23 naproxen 500 mg tablet 500 mg PO BID PRN pain #20 tabs 04/29/23 prednisone 20 mg tablet 60 mg (3 x 20 mg) PO DAILY 7 days 05/08/23 #21 tabs albuterol sulfate 90 mcg/actuation 2 puff inhalation Q4-6H PRN 05/17/23 aerosol inhaler (ProAir HFA) shortness of breath or wheezing #8.5 grams albuterol sulfate 90 mcg/actuation 2 puff inhalation Q4-6H PRN 06/27/23 aerosol inhaler (ProAir HFA) shortness of breath or wheezing #8.5 grams prednisone 20 mg tablet 40 mg (2 x 20 mg) PO DAILY #10 tabs 06/27/23 doxycycline hyclate 100 mg capsule 100 mg PO BID 7 days #14 caps 07/18/23 metronidazole 500 mg tablet 500 mg PO BID 7 days #14 tabs 07/18/23 Allergies Allergy/AdvReac Type Severity Reaction Status Date / Time seafood Allergy Severe Anaphylaxis Verified 07/18/23 17:30 Penicillins [PENICILLINS] Allergy Intermediate RASH Verified 07/18/23 17:30 Review of Systems 2 Review of Systems: Pertinent positives and negatives as stated in [facility] Past Medical History Source: nursing notes reviewed Medical History Substance abuse Alcohol abuse Depression Opioid use disorder Asthma Social History Social History Household Members: Family Household Members Other:: Mom Housing: House Do you presently have visiting nurse or other home services: No Unable to assess alcohol history related to: Unknown Alcohol intake: current Alcohol intake frequency: does not drink Alcohol type: hard liquor Patient Tobacco Use Status: Current everyday Tobacco user Tobacco use type: Cigarette Cigarette Packs Per Day: 1 Cigarettes Per Day: 20.0 Smoked in Last 30 Days: No e-Cigarette/Vaping Use: Currently Using Use of substances other than those prescribed or required for medical reasons: No Substance Use Type: Heroin and Opiates Advance Directives: No Advance Directives Information Provided: No service: No Current occupational status: employed Current occupation: right hand dominant Physical Exam 2 Vital Signs: Vital Signs: Last Vital Signs Pulse 81 07/24/23 21:01 Resp 18 07/24/23 21:01 BP 129/89 07/24/23 21:01 Pulse Ox 96 07/24/23 21:01 O2 Del Method Room Air 07/24/23 21:01 BMI result Body Mass Index 24.4 VITAL SIGNS: Reviewed. GENERAL: Well developed, well nourished, in no acute distress. HEAD: Normocephalic/atraumatic EYES: PERRLA, EOMI EARS: Ext canals without abnormality NOSE: Nares patent bilateral OROPHARYNX: no oral lesions noted, posterior pharynx clear NECK: Supple, no adenopathy LUNGS: Normal breath sounds. No adventitious sounds or accessory muscle use. SpO2<98> CARDIOVASCULAR: Regular rate and rhythm without noted murmurs ABDOMEN: Soft, non-tender, non-distended with bowel sounds. MUSCULOSKELETAL: No tenderness, deformities, or effusions noted on gross inspection. EXTREMITIES: No cyanosis, clubbing or edema. SKIN: Inspection of the skin reveals no rashes NEUROLOGIC: GCS- 13. Strength and sensation to light touch were grossly intact x 4. Medications Administered Generic Name Dose Route Start Last Admin Trade Name Freq PRN Reason Stop Dose Admin Sodium Chloride 1,000 mls @ 999 mls/hr 07/24/23 22:15 07/24/23 22:25 Ns IV 07/24/23 23:15 999 mls/hr .Q1H1M [facility] Administration Medical Decision Making Medical Decision Making MDM Narrative: 28-year-old male with history and clinical presentation consistent with overdose, will obtain labs, monitor, patient is currently oxygenating well on supplemental nasal cannula and placed on capnography. I reviewed all investigations and hematologic indices are grossly within normal limits. Chemistry indices are grossly within normal limits there is no demonstration of YOLIE her electrolytes/liver enzymes arrangements. BAL- undetectable. Chest x-ray negative for intermittent otherwise my interpretation is in agreement with radiology's impression. Does not require any oxygen supplementation, is tolerating oral intake and otherwise requesting to leave. He is discharged with Narcan, he does not wish any detox services. Differential Diagnosis Differential Diagnoses: The differential diagnosis associated with the presentation includes Please see the discussion above Admission/Observation Consideration of admission/observation: Escalation of care including admission/observation considered Please see the discussion above Lab Data MDM Lab Attestation statement: I reviewed the patient's lab results. Please see the discussion above 07/24/23 19:48 07/24/23 19:48 Labs: Lab Results 07/24/23 07/24/23 07/24/23 Range/Units 19:47 19:48 19:48 WBC 10.3 (4.8-10.8) X10*3/uL RBC 5.50 (4.60-5.80) X10*6/uL Hgb 15.8 (14.0-18.0) g/dl Hct 48.0 D (42.0-52.0) % MCV 87.3 (80.0-98.0) fL MCH 28.7 (27.0-33.0) pg MCHC 32.9 (31.0-36.0) g/dl RDW 13.1 (11.0-16.0) % Plt Count 383 D (160-400) X10*3/uL MPV 9.8 (9.4-12.4) fL Immature Gran % (Auto) 0.3 (0.0-0.4) % Neut % (Auto) 65.2 (45-73) % Lymph % (Auto) 25.1 (20-40) % Burt % (Auto) 7.4 (2-11) % Eos % (Auto) 1.6 (0-4) % Baso % (Auto) 0.4 (0-2) % Lymph # (Auto) 2.6 (1.2-4.9) X10*3/uL Burt # (Auto) 0.8 (0.1-1.2) X10*3/uL Eos # (Auto) 0.2 (0.0-0.4) X10*3/uL Baso # (Auto) 0.0 (0.0-0.2) X10*3/uL Abs Immat Gran (auto) 0.03 (0.00-0.03) X10*3/uL Absolute Neuts (auto) 6.7 (2.0-8.3) x10*3/uL Absolute Nucleated RBC 0.000 (0.0-0.012) X10*3/uL Nucleated RBC % (auto) 0.0 (0.0-0.2) /100WBC Hold Purple Top SEE NOTE Sodium 144 (135-145) mmol/L Potassium 4.0 (3.3-5.1) mmol/L Chloride 104 (96-108) mmol/L Carbon Dioxide 28 (22-29) mmol/L Anion Gap 16 (12-20) BUN 14 (9-16) mg/dL Creatinine 1.19 (0.5-1.4) mg/dL Estim Creat Clear Calc 99.6 Estimated GFR > 60 Random Glucose 200 H (60-115) mg/dL Calcium 9.3 (8.4-10.2) mg/dL Total Bilirubin 0.3 (0.0-1.0) mg/dL AST 19 (5-37) U/L ALT 15 (0-40) U/L Alkaline Phosphatase 145 H (39-117) U/L Troponin I High Sens < 2.7 D (<3.5-35.0) ng/L Total Protein 8.2 H (6.5-8.0) g/dL Albumin 4.8 (3.5-5.0) g/dL Hold Yellow Top See Note Ethyl Alcohol < 10 Cancelled mg/dL Independent Interpretation I performed an independent interpretation of an: EKG Interpretation: Normal sinus rhythm, HR-81, no STEMI, MT/QRS/QTC is within normal limits, no QT or QRS/QTC prolongation. No acute changes when compared to prior on 09/04/2022. Radiology Impression Discussion of test interpretation with radiology: I have reviewed the radiologist's reading. Radiologist Impression: Please see the discussion above External Record Review External record reviewed: Outpatient record, Prior outpatient labs and Prior outpatient radiology Chronic Conditions Patient?s care impacted by: Other Polysubstance use Critical Care Time Critical Care Time Critical Care Time: Yes Total Critical Care Time: 60 Attestation: I personally attest to this time spent taking care of the patient. Discharge Plan Discharge Clinical Impression: Overdose, Polysubstance use disorder Patient Disposition: Home, Self-Care Instructions: Adult Overdose (ED), Polysubstance Abuse (ED) Additional Instructions: 1. Resume all home medications as prescribed. Do not hesitate to return to the emergency room should you experience any worsening of your symptoms. Prescriptions: No Action albuterol sulfate [Ventolin HFA] 90 mcg/actuation Hfa Aerosol Inhaler 1 puff inhalation RQ4H PRN (Reason: ASTHMA) Qty: 8.5 0RF fluticasone furoate-vilanterol [Breo Ellipta] 100-25 mcg/dose Blister With Device 1 ea inhalation RDAILY Qty: 1 0RF albuterol sulfate 90 mcg/actuation HFA aerosol inhaler 2 puff inhalation Q4-6H PRN (Reason: shortness of breath or wheezing) Qty: 6.7 3RF Rx Instructions: May dispense medication equivalent accepted by patient's insurance albuterol sulfate 2.5 mg /3 mL (0.083 %) solution for nebulization 2.5 mg inhalation Q4-6H PRN (Reason: shortness of breath or wheezing) Qty: 180 2RF Rx Instructions: May dispense medication equivalent accepted by patient's insurance prednisone 20 mg tablet 40 mg PO DAILY 5 Days Qty: 10 0RF doxycycline monohydrate 100 mg capsule 100 mg PO BID 10 Days Qty: 20 0RF prednisone 20 mg tablet 20 mg PO BID Qty: 10 0RF albuterol sulfate 90 mcg/actuation HFA aerosol inhaler 1 inh inhalation QID PRN (Reason: shortness of breath or wheezing) Qty: 8.5 0RF azithromycin [Zithromax Z-Gustavo] 250 mg tablet See Rx Instructions .ROUTE .COMPLEX Qty: 6 0RF Rx Instructions: For 250 mg dose pack: take 500 mg today (day 1), then 250 mg for 4 days (days 2-5) cyclobenzaprine 10 mg tablet 10 mg PO TID PRN (Reason: muscle spasm) Qty: 14 0RF ibuprofen 600 mg tablet 600 mg PO Q8H PRN (Reason: pain) Qty: 14 0RF lidocaine 5 % adhesive patch,medicated 1 patch topical DAILY Qty: 15 0RF Rx Instructions: leave on most painful area for up to 12 hrs prednisone 20 mg tablet 60 mg PO DAILY 7 Days Qty: 21 0RF naproxen 500 mg tablet 500 mg PO BID PRN (Reason: pain) Qty: 20 0RF albuterol sulfate [ProAir HFA] 90 mcg/actuation HFA aerosol inhaler 2 puff inhalation Q4-6H PRN (Reason: shortness of breath or wheezing) Qty: 8.5 0RF albuterol sulfate [ProAir HFA] 90 mcg/actuation HFA aerosol inhaler 2 puff inhalation Q4-6H PRN (Reason: shortness of breath or wheezing) Qty: 8.5 0RF prednisone 20 mg tablet 40 mg PO DAILY Qty: 10 0RF doxycycline hyclate 100 mg capsule 100 mg PO BID 7 Days Qty: 14 0RF metronidazole 500 mg tablet 500 mg PO BID 7 Days Qty: 14 0RF naloxone [Narcan] 4 mg/actuation spray,non-aerosol 4 mg intranasal Q2M PRN (Reason: opioid overdose) Qty: 2 0RF Rx Instructions: spray 1 dose into ONE nostril; alternate nostrils w each dose until help arrives sertraline 25 mg tablet 50 mg PO DAILY Qty: 30 0RF (DME) Reset-O Digital Brandy (OUD) Misc See Rx Instructions .MEDSUPPLY Qty: 1 3RF Rx Instructions: As directed (3-4 times a week) 84 days buprenorphine-naloxone [Suboxone] 12-3 mg film 1 film sublingual Q24H Qty: 7 0RF
[2023-07-24 20:09] LABS: Alanine Aminotransferase 15 U/L (0-40); Albumin Level 4.8 g/dL (3.5-5.0); Alkaline Phosphatase 145 U/L (39-117); Anion Gap 16 (12-20); Aspartate Amino Transferase 19 U/L (5-37); Bilirubin Total 0.3 mg/dL (0.0-1.0); Blood Urea Nitrogen 14 mg/dL (9-16); Calcium 9.3 mg/dL (8.4-10.2); Carbon Dioxide 28 mmol/L (22-29); Chloride 104 mmol/L (96-108); Creatinine Clr Calc Pharmacy 99.6; Estimated Glomerular Filt Rate > 60; Ethanol < 10 mg/dL; Glucose Random 200 mg/dL (60-115); Sodium 144 mmol/L (135-145); Total Protein 8.2 g/dL (6.5-8.0)
[2023-07-24 20:17] LABS: Troponin-I High Sensitivity < 2.7 ng/L (<3.5-35.0)
[2023-07-24 21:01] VITALS: BP 129/89; PULSE 81; RESP 18; O2SAT 96
--- NOTE | 2023-07-24 21:01 | PC.NURSE ---
pt alert at this time. pt reports being at bar and drinking alcohol and then remembers passing out and not waking up. pt denies the use of drugs.
[2023-07-24] MEDS: 0.9 % Sodium Chloride 1,000 ML 999 ML IV (22:25)
[2023-07-24] MEDS: Naloxone HCl Nasal TAKE HOME 4 MG SPRAY 8 MG NOSTRILALT (23:18)
--- NOTE | 2023-07-24 23:22 | PC.NURSE ---
pt educated on the use of narcan to use at home.
[2023-07-24 23:23] VITALS: BP 113/71; PULSE 85; RESP 18; O2SAT 98
--- NOTE | 2023-07-24 23:23 | PC.NURSE ---
pt a&ox4, respirations even and unlabored. pt cleared by for discharge, pt ambulated with steady gait to decon.
== END 2023-07-24 23:24 | disposition home or self-care (01) ==
PROVIDERS: Emergency Provider Student in an Organized Health Care Education/Training Program
DX: T40.1X4A Poisoning by heroin, undetermined, initial encounter (principal); Y92.9 Unspecified place or not applicable; R09.02 Hypoxemia; R06.02 Shortness of breath; Z79.899 Other long term (current) drug therapy; F17.210 Nicotine dependence, cigarettes, uncomplicated; Z71.6 Tobacco abuse counseling
CPT/HCPCS: 36415; 71045; 80053; 80307; 84484; 85025; 93005; 99284; 99285

== ENCOUNTER → 2023-07-24 19:43 | Outpatient (BNV) | payer OTHER, SELFPAY | PROVIDERS: Emergency Provider Student in an Organized Health Care Education/Training Program; Visit Provider Internal Medicine | DX: F11.10 Opioid abuse, uncomplicated (principal) | CPT/HCPCS: 93010 ==

== ENCOUNTER 2023-08-11 23:08 | Emergency (ER) | payer OTHER, SELFPAY ==
[2023-08-11 23:13] VITALS: BP 148/88; PULSE 97; O2SAT 97
[2023-08-11 23:16] VITALS: BP 133/80; PULSE 89; RESP 16; TEMP 36.4; O2SAT 95; BMI 25.1
[2023-08-12 00:18] LABS: Basophils Absolute Auto 0.1 X10*3/uL (0.0-0.2); Basophils Percent Auto 0.3 % (0-2); Eosinophils Absolute Auto 0.1 X10*3/uL (0.0-0.4); Eosinophils Percent Auto 0.6 % (0-4); Hematocrit 48.4 % (42.0-52.0); Hemoglobin 16.3 g/dl (14.0-18.0); Imm Gran Abs Auto 0.13 X10*3/uL (0.00-0.03); Imm Gran Pct Auto 0.9 % (0.0-0.4); Lymphocytes Absolute Auto 1.5 X10*3/uL (1.2-4.9); Lymphocytes Percent Auto 10.3 % (20-40); MANUAL DIFF FLAG SCAN; Mean Corpuscular HGB Conc 33.7 g/dl (31.0-36.0); Mean Corpuscular Hemoglobin 28.6 pg (27.0-33.0); Mean Corpuscular Volume 84.9 fL (80.0-98.0); Mean Platelet Volume 10.4 fL (9.4-12.4); Monocytes Percent Auto 13.6 % (2-11); Neutrophils Absolute Auto 10.7 x10*3/uL (2.0-8.3); Neutrophils Percent Auto 74.3 % (45-73); Platelet Count 334 X10*3/uL (160-400); Red Cell Distribution Width 13.1 % (11.0-16.0); SCAN SMEAR FLAG 1; White Blood Count 14.4 X10*3/uL (4.8-10.8)
[2023-08-12 00:28] LABS: Amphetamine Screen Urine Not Detected (Not Detect); Barbiturates, Urine Not Detected (Not Detect); Benzodiazepines Screen Urine POSITIVE (Not Detect); Cannabinoid Screen Urine POSITIVE (Not Detect); Cocaine Screen Urine Not Detected (Not Detect); Fentanyl, urine POSITIVE (Not Detect); Opiate Screen Urine POSITIVE (Not Detect); Phencyclidine Screen Urine Not Detected (Not Detect)
[2023-08-12 00:30] LABS: Ethanol < 10 mg/dL
--- NOTE | 2023-08-12 00:31 | ED_ITS ---
HPI - Male Genitourinary General Chief complaint: Urogenital-Male Stated complaint: Dark colored urine approx. x7 days Time Seen by Provider: 08/12/23 00:03 Source: patient Mode of arrival: EMS Limitations: no limitations History of Present Illness HPI Narrative: patient comes to the emergency room by ambulance complaining of dark-colored urine for 7 days. Patient denies nausea vomiting diarrhea, no abdominal pain. No hematuria or dysuria. However, patient is clearly under the influence of drugs, Likely PCP with narcotics Related Data Previous Rx's Medication Instructions Recorded albuterol sulfate 90 mcg/actuation 1 puff inhalation RQ4H PRN ASTHMA 07/09/22 aerosol inhaler (Ventolin HFA) #8.5 grams fluticasone furoate 100 1 ea inhalation RDAILY #1 ea 07/09/22 mcg-vilanterol 25 mcg/dose inhalation powder (Breo Ellipta) naloxone 4 mg/actuation nasal 4 mg intranasal Q2M PRN opioid 09/08/22 spray (Narcan) overdose #2 ea sertraline 25 mg tablet 50 mg (2 x 25 mg) PO DAILY #30 tabs 09/23/22 digital therapeutics, OUD (Reset-O #1 ea 09/30/22 Digital Brandy (OUD)) buprenorphine 12 mg-naloxone 3 mg 1 film sublingual Q24H #7 ea 10/07/22 sublingual film (Suboxone) albuterol sulfate 2.5 mg/3 mL 2.5 mg (3 mL) inhalation Q4-6H PRN 10/23/22 (0.083 %) solution for nebulization shortness of breath or wheezing #180 mL albuterol sulfate 90 mcg/actuation 2 puff inhalation Q4-6H PRN 10/23/22 aerosol inhaler shortness of breath or wheezing #6.7 grams doxycycline monohydrate 100 mg 100 mg PO BID 10 days #20 caps 10/23/22 capsule prednisone 20 mg tablet 40 mg (2 x 20 mg) PO DAILY 5 days 10/23/22 #10 tabs albuterol sulfate 90 mcg/actuation 1 inh inhalation QID PRN shortness 11/01/22 aerosol inhaler of breath or wheezing #8.5 grams azithromycin 250 mg tablet See Rx Instructions PO .COMPLEX #6 11/01/22 (Zithromax Z-Gustavo) tabs prednisone 20 mg tablet 20 mg PO BID #10 tabs 11/01/22 cyclobenzaprine 10 mg tablet 10 mg PO TID PRN muscle spasm #14 04/01/23 tabs ibuprofen 600 mg tablet 600 mg PO Q8H PRN pain #14 tabs 04/01/23 lidocaine 5 % topical patch 1 patch topical DAILY #15 ea 04/01/23 naproxen 500 mg tablet 500 mg PO BID PRN pain #20 tabs 04/29/23 prednisone 20 mg tablet 60 mg (3 x 20 mg) PO DAILY 7 days 05/08/23 #21 tabs albuterol sulfate 90 mcg/actuation 2 puff inhalation Q4-6H PRN 05/17/23 aerosol inhaler (ProAir HFA) shortness of breath or wheezing #8.5 grams albuterol sulfate 90 mcg/actuation 2 puff inhalation Q4-6H PRN 06/27/23 aerosol inhaler (ProAir HFA) shortness of breath or wheezing #8.5 grams prednisone 20 mg tablet 40 mg (2 x 20 mg) PO DAILY #10 tabs 06/27/23 doxycycline hyclate 100 mg capsule 100 mg PO BID 7 days #14 caps 07/18/23 metronidazole 500 mg tablet 500 mg PO BID 7 days #14 tabs 07/18/23 levofloxacin 500 mg tablet 500 mg PO DAILY #9 tabs 08/12/23 Allergies Allergy/AdvReac Type Severity Reaction Status Date / Time seafood Allergy Severe Anaphylaxis Verified 07/18/23 17:30 Penicillins [PENICILLINS] Allergy Intermediate RASH Verified 07/18/23 17:30 Review of Systems 2 Review of Systems: Constitutional : No Weight loss, No Fever, No Chills, No Night Sweats, No Fatigue, No Malaise ENT/Mouth : No Hearing loss, No Ear Pain, No Nasal Congestion, No Sinus Pain, No Hoarseness, No sore throat, No Rhinorrhea, No Swallowing Difficulty Eyes: No Eye Pain, No Swelling, No Redness, No Foreign Body, No Discharge, No Vision Changes Cardiovascular : No Chest Pain, No SOB, No Dyspnea on Exertion, No Orthopnea, No Edema, No Palpitations Respiratory : No Cough, No Sputum, No Wheezing, No Smoke Exposure, No Dyspnea Gastrointestinal : No Nausea, No Vomiting, No Diarrhea, No Constipation, No abdominal Pain, No Hematochezia, No Melena Genitourinary : complaining of brown colored urine, No Dysuria, No Urinary Frequency, No Hematuria, No Urinary Incontinence, No Urgency, No Flank Pain, No Urinary Flow Changes, No Hesitancy Musculoskeletal : No joint pain, No Myalgias, No Joint Swelling Skin : No Skin Lesions, No rash Neuro : No Weakness, No Numbness, No Paresthesias, No Loss of Consciousness, No Dizziness, No Headache Psych : No Anxiety/Panic, No Depression, No SI/HI/AH/VH, No Social Issues, Heme/Lymph: No Bruising, No Bleeding,No Lymphadenopathy Endocrine : No Polyuria, No Polydipsia, No Temperature Intolerance [facility] Past Medical History Medical History Substance abuse Alcohol abuse Depression Opioid use disorder Asthma Social History Social History Household Members: Family Household Members Other:: Mom Housing: House Do you presently have visiting nurse or other home services: No Unable to assess alcohol history related to: Unknown Alcohol intake: current Alcohol intake frequency: does not drink Alcohol type: hard liquor Patient Tobacco Use Status: Current everyday Tobacco user Tobacco use type: Cigarette Cigarette Packs Per Day: 1 Cigarettes Per Day: 20.0 e-Cigarette/Vaping Use: Currently Using Substance Use Type: Heroin and Opiates Advance Directives: No Advance Directives Information Provided: No service: No Current occupational status: employed Current occupation: right hand dominant Physical Exam 2 Vital Signs: Vital Signs: Last Vital Signs Temp 97.6 F 08/11/23 23:16 Pulse 89 08/11/23 23:16 Resp 16 08/11/23 23:16 BP 133/80 08/11/23 23:16 Pulse Ox 95 08/11/23 23:16 O2 Del Method Room Air 08/11/23 23:16 BMI result Body Mass Index 25.1 Const: Other: Appearance: Alert. Oriented X3. patient pacing, anxious, making animal noises, redirectable Eyes: Pupils equal, round and reactive to light. ENT: Pharynx normal. Neck: Normal inspection. Neck supple. No lymph nodes noted. No crepitus CVS: Normal heart rate and rhythm. Pulses normal. Normal S1 and S2 Respiratory: No respiratory distress. Breath sounds normal. No Wheezing. No rales Abdomen: Soft and nontender. No rigidity. No distention. Skin: Skin warm and dry. Normal skin color. Normal skin turgor. Extremities: No lower extremity edema. No Lacerations. No Rash Neuro: Oriented X 3. No motor deficit. No sensory deficit. Moving all extremities. No slurred speech. CN 2 through 12 grossly intact Psych: calm, cooperative, normal affect Course Course Course Narrative: - patient agreed to give blood. Patient refusing IV line - patient's labs pending Medications Administered Discontinued Medications Generic Name Dose Route Start Last Admin Trade Name Freq PRN Reason Stop Dose Admin Sodium Chloride 1,000 mls @ 999 mls/hr 08/12/23 00:03 08/12/23 00:41 Ns IVCONT 08/12/23 01:03 999 mls/hr .Q1H1M ONE Administration Medical Decision Making Medical Decision Making [facility] Narrative: - my interpretation of labs: White blood cell count 14.4, likely reactive leukocytosis, chemistry within normal limits. CPK elevated, lower than previous visits, creatinine within normal limits. Urinalysis positive for UTI - patient was given IV fluids, eventually accepted IV. Patient given p.o. levofloxacin - patient overall feeling better, patient more calm, alert and oriented x3, steady gait - patient not SI or HI, declined care team consult or manager recovery Differential Diagnosis Differential Diagnoses: The differential diagnosis associated with the presentation includes ( rhabdo, UTI, liver disease) Admission/Observation Consideration of admission/observation: Escalation of care including admission/observation considered Lab Data [facility] Lab Attestation statement: I reviewed the patient's lab results. 08/12/23 00:09 08/12/23 00:09 Labs: Lab Results 08/12/23 Range/Units 00:09 WBC 14.4 H (4.8-10.8) X10*3/uL RBC 5.70 (4.60-5.80) X10*6/uL Hgb 16.3 (14.0-18.0) g/dl Hct 48.4 (42.0-52.0) % MCV 84.9 (80.0-98.0) fL MCH 28.6 (27.0-33.0) pg MCHC 33.7 (31.0-36.0) g/dl RDW 13.1 (11.0-16.0) % Plt Count 334 (160-400) X10*3/uL MPV 10.4 (9.4-12.4) fL Immature Gran % (Auto) 0.9 H (0.0-0.4) % Neut % (Auto) 74.3 H (45-73) % Lymph % (Auto) 10.3 L (20-40) % [place] % (Auto) 13.6 H (2-11) % Eos % (Auto) 0.6 (0-4) % Baso % (Auto) 0.3 (0-2) % Lymph # (Auto) 1.5 (1.2-4.9) X10*3/uL [place] # (Auto) 2.0 H (0.1-1.2) X10*3/uL Eos # (Auto) 0.1 (0.0-0.4) X10*3/uL Baso # (Auto) 0.1 (0.0-0.2) X10*3/uL Abs Immat Gran (auto) 0.13 H (0.00-0.03) X10*3/uL Absolute Neuts (auto) 10.7 H (2.0-8.3) x10*3/uL Absolute Nucleated RBC 0.000 (0.0-0.012) X10*3/uL Nucleated RBC % (auto) 0.0 (0.0-0.2) /100WBC Smear Tech's Comments VERIFIED PT 11.9 (11.1-13.3) SEC INR 1.0 (0.9-1.1) Sodium 139 (135-145) mmol/L Potassium 4.0 (3.3-5.1) mmol/L Chloride 101 (96-108) mmol/L Carbon Dioxide 26 (22-29) mmol/L Anion Gap 16 (12-20) BUN 15 (9-16) mg/dL Creatinine 1.24 (0.5-1.4) mg/dL Estim Creat Clear Calc 89.9 Estimated GFR > 60 Random Glucose 119 H (60-115) mg/dL Lactic Acid 2.0 (0.5-2.0) mmol/L Calcium 9.8 (8.4-10.2) mg/dL Magnesium 2.4 (1.6-2.6) mg/dL Total Bilirubin 1.4 H (0.0-1.0) mg/dL Direct Bilirubin 0.4 (0.0-0.5) mg/dL AST 54 H (5-37) U/L ALT 21 (0-40) U/L Alkaline Phosphatase 115 (39-117) U/L Total Creatine Kinase 656 H (38-174) U/L Total Protein 8.4 H (6.5-8.0) g/dL Albumin 4.9 (3.5-5.0) g/dL Lipase 14 (8-78) U/L Urine Color Straw Urine Appearance Hazy Urine pH 6.5 (5.0-9.0) Ur Specific [place] >= 1.030 H (1.005-1.025) Urine Protein 300 (3+) H (Neg-Trace) mg/dL Urine Glucose (UA) Negative (Negative) mg/dL Urine Ketones Trace (Negative) mg/dL Urine Blood Large (3+) H (Negative) Urine Nitrite Positive H (Negative) Ur Leukocyte Esterase Trace H (Negative) Urine RBC 3-5 H (0-2) /HPF Urine WBC 0-5 (0-5) /HPF Ur Squamous Epith Cells 11-20 (0-2) /HPF Urine Bacteria 1+ (None Seen) Hyaline Casts 3-5 (0-2) /LPF Granular Casts Present Urine Opiates Screen POSITIVE H (Not Detect) Urine Fentanyl Screen POSITIVE H (Not Detect) Ur Barbiturates Screen Not Detected (Not Detect) Ur Phencyclidine Scrn Not Detected (Not Detect) Ur Amphetamines Screen Not Detected (Not Detect) U Benzodiazepines Scrn POSITIVE H (Not Detect) Urine Cocaine Screen Not Detected (Not Detect) U Marijuana (THC) Screen POSITIVE H (Not Detect) Ethyl Alcohol < 10 mg/dL Discharge Plan Discharge Clinical Impression: Acute UTI, Rhabdomyolysis Patient Disposition: Home, Self-Care Instructions: Urinary Tract Infection in Men (ED), Rhabdomyolysis (ED) Additional Instructions: Please follow-up with your primary care physician tomorrow. If you have any worsening or new symptoms, please return to the emergency room or call 911 Prescriptions: New levofloxacin 500 mg tablet 500 mg PO DAILY Qty: 9 0RF No Action albuterol sulfate [Ventolin HFA] 90 mcg/actuation Hfa Aerosol Inhaler 1 puff inhalation RQ4H PRN (Reason: ASTHMA) Qty: 8.5 0RF fluticasone furoate-vilanterol [Breo Ellipta] 100-25 mcg/dose Blister With Device 1 ea inhalation RDAILY Qty: 1 0RF albuterol sulfate 90 mcg/actuation HFA aerosol inhaler 2 puff inhalation Q4-6H PRN (Reason: shortness of breath or wheezing) Qty: 6.7 3RF Rx Instructions: May dispense medication equivalent accepted by patient's insurance albuterol sulfate 2.5 mg /3 mL (0.083 %) solution for nebulization 2.5 mg inhalation Q4-6H PRN (Reason: shortness of breath or wheezing) Qty: 180 2RF Rx Instructions: May dispense medication equivalent accepted by patient's insurance prednisone 20 mg tablet 40 mg PO DAILY 5 Days Qty: 10 0RF doxycycline monohydrate 100 mg capsule 100 mg PO BID 10 Days Qty: 20 0RF prednisone 20 mg tablet 20 mg PO BID Qty: 10 0RF albuterol sulfate 90 mcg/actuation HFA aerosol inhaler 1 inh inhalation QID PRN (Reason: shortness of breath or wheezing) Qty: 8.5 0RF azithromycin [Zithromax Z-Gustavo] 250 mg tablet See Rx Instructions .ROUTE .COMPLEX Qty: 6 0RF Rx Instructions: For 250 mg dose pack: take 500 mg today (day 1), then 250 mg for 4 days (days 2-5) cyclobenzaprine 10 mg tablet 10 mg PO TID PRN (Reason: muscle spasm) Qty: 14 0RF ibuprofen 600 mg tablet 600 mg PO Q8H PRN (Reason: pain) Qty: 14 0RF lidocaine 5 % adhesive patch,medicated 1 patch topical DAILY Qty: 15 0RF Rx Instructions: leave on most painful area for up to 12 hrs prednisone 20 mg tablet 60 mg PO DAILY 7 Days Qty: 21 0RF naproxen 500 mg tablet 500 mg PO BID PRN (Reason: pain) Qty: 20 0RF albuterol sulfate [ProAir HFA] 90 mcg/actuation HFA aerosol inhaler 2 puff inhalation Q4-6H PRN (Reason: shortness of breath or wheezing) Qty: 8.5 0RF albuterol sulfate [ProAir HFA] 90 mcg/actuation HFA aerosol inhaler 2 puff inhalation Q4-6H PRN (Reason: shortness of breath or wheezing) Qty: 8.5 0RF prednisone 20 mg tablet 40 mg PO DAILY Qty: 10 0RF doxycycline hyclate 100 mg capsule 100 mg PO BID 7 Days Qty: 14 0RF metronidazole 500 mg tablet 500 mg PO BID 7 Days Qty: 14 0RF naloxone [Narcan] 4 mg/actuation spray,non-aerosol 4 mg intranasal Q2M PRN (Reason: opioid overdose) Qty: 2 0RF Rx Instructions: spray 1 dose into ONE nostril; alternate nostrils w each dose until help arrives sertraline 25 mg tablet 50 mg PO DAILY Qty: 30 0RF (DME) Reset-O Digital Brandy (OUD) Misc See Rx Instructions .MEDSUPPLY Qty: 1 3RF Rx Instructions: As directed (3-4 times a week) 84 days buprenorphine-naloxone [Suboxone] 12-3 mg film 1 film sublingual Q24H Qty: 7 0RF
[2023-08-12 00:34] LABS: Alanine Aminotransferase 21 U/L (0-40); Albumin Level 4.9 g/dL (3.5-5.0); Alkaline Phosphatase 115 U/L (39-117); Anion Gap 16 (12-20); Aspartate Amino Transferase 54 U/L (5-37); Bilirubin Direct 0.4 mg/dL (0.0-0.5); Bilirubin Total 1.4 mg/dL (0.0-1.0); Blood Urea Nitrogen 15 mg/dL (9-16); Calcium 9.8 mg/dL (8.4-10.2); Carbon Dioxide 26 mmol/L (22-29); Chloride 101 mmol/L (96-108); Creatinine Clr Calc Pharmacy 89.9; Estimated Glomerular Filt Rate > 60; Glucose Random 119 mg/dL (60-115); Lipase 14 U/L (8-78); Magnesium 2.4 mg/dL (1.6-2.6); Sodium 139 mmol/L (135-145); Total Protein 8.4 g/dL (6.5-8.0)
[2023-08-12 00:37] LABS: SLIDE REVIEW VERIFIED
[2023-08-12] MEDS: 0.9 % Sodium Chloride 1,000 ML 999 ML IVCONT (00:41)
[2023-08-12 00:42] LABS: Prothrombin Time 11.9 SEC (11.1-13.3)
[2023-08-12 01:32] LABS: Appearance Urine Hazy; Color Urine Straw; Glucose Urine UA Negative (Negative); Leukocyte Esterase Urine Trace (Negative); Nitrite Urine Positive (Negative); PH 6.5 (5.0-9.0); Specific Gravity - Urine >= 1.030 (1.005-1.025); UMIC TRIGGER UACC YES; Urine Blood Large (3+) (Negative); Urine Ketones Trace mg/dL (Negative); Urine Protein 300 (3+) mg/dL (Neg-Trace)
[2023-08-12 01:37] LABS: Bacteria Urine 1+ (None Seen); Granular Casts Urine Present; UACC Culture Trigger YES; WBC Urine 0-5 /HPF (0-5)
[2023-08-12] MEDS: levoFLOXacin 500 MG TABLET PO (03:50)
[2023-08-12 03:52] VITALS: BP 160/64; PULSE 72; RESP 16; O2SAT 98
== END 2023-08-12 03:55 | disposition home or self-care (01) ==
PROVIDERS: Emergency Provider Emergency Medicine
DX: N39.0 Urinary tract infection, site not specified (principal); M62.82 Rhabdomyolysis
CPT/HCPCS: 36415; 80048; 80076; 80307; 81001; 82550; 83605; 83690; 83735; 85025; 85610; 87040; 87086; 96360; 96361; 99284

== ENCOUNTER 2023-08-15 16:35 | Emergency (ER) | payer OTHER, SELFPAY ==
[2023-08-15] VITALS (14 sets, daily range): BP systolic 112–127; BP diastolic 72–101; PULSE 59–112; RESP 12–28; O2SAT 94–100; BMI 25.1
[2023-08-15] MEDS: LORazepam 2 MG/ML VIAL IM (16:45)
[2023-08-15] MEDS: diphenhydrAMINE HCL 50 MG/ML VIAL IM (16:45)
[2023-08-15] MEDS: Haloperidol Lactate 5 MG/ML VIAL IM (16:45)
--- NOTE | 2023-08-15 16:52 | ED_ITS ---
HPI - Psych General Chief Complaint: Overdose Stated Complaint: PCP, 4 point restraints, PD on board, combative Time Seen by Provider: 08/15/23 16:59 Source: EMS Mode of arrival: EMS Limitations: altered mental status History of Present Illness HPI Narrative: Patient comes to the emergency room by EMS and with PD on board. Patient's mother called EMS, patient was acting aggressive and erratic. Patient known to abuse opiates, fentanyl, benzodiazepines and marijuana. At this time, patient is acting as if he was intoxicated with PCP. Very combative, unable to redirect. Related Data Previous Rx's ?Medication ?Instructions ?Recorded fluticasone furoate 100 1 ea inhalation RDAILY #1 ea 07/09/22 mcg-vilanterol 25 mcg/dose inhalation powder (Breo Ellipta) sertraline 25 mg tablet 50 mg (2 x 25 mg) PO DAILY #30 tabs 09/23/22 Scopely therapeutics, OUD (Reset-O #1 ea 09/30/22 Digital Brandy (OUD)) buprenorphine 12 mg-naloxone 3 mg 1 film sublingual Q24H #7 ea 10/07/22 sublingual film (Suboxone) albuterol sulfate 2.5 mg/3 mL 2.5 mg (3 mL) inhalation Q4-6H PRN 10/23/22 (0.083 %) solution for nebulization shortness of breath or wheezing #180 mL albuterol sulfate 90 mcg/actuation 2 puff inhalation Q4-6H PRN 10/23/22 aerosol inhaler shortness of breath or wheezing #6.7 grams cyclobenzaprine 10 mg tablet 10 mg PO TID PRN muscle spasm #14 04/01/23 tabs ibuprofen 600 mg tablet 600 mg PO Q8H PRN pain #14 tabs 04/01/23 lidocaine 5 % topical patch 1 patch topical DAILY #15 ea 04/01/23 naproxen 500 mg tablet 500 mg PO BID PRN pain #20 tabs 04/29/23 albuterol sulfate 90 mcg/actuation 2 inh inhalation Q20M PRN 12/04/23 aerosol inhaler shortness of breath or wheezing #8.5 grams prednisone 20 mg tablet 40 mg (2 x 20 mg) PO DAILY 5 days 12/04/23 #10 tabs albuterol sulfate 90 mcg/actuation 2 puff inhalation Q4-6H PRN 12/16/23 aerosol inhaler (Ventolin HFA) shortness of breath or wheezing #8.5 grams prednisone 50 mg tablet 50 mg PO DAILY 4 days #4 tabs 12/16/23 albuterol sulfate 90 mcg/actuation 2 inh inhalation Q4-6H PRN 01/18/24 breath activated powder inhaler shortness of breath or wheezing #1 ea prednisone 20 mg tablet 40 mg (2 x 20 mg) PO DAILY 4 days 01/18/24 #8 tabs Allergies Allergy/AdvReac Type Severity Reaction Status Date / Time seafood Allergy Severe Anaphylaxis Verified 01/18/24 18:58 Penicillins [PENICILLINS] Allergy Intermediate RASH Verified 01/18/24 18:58 Review of Systems 2 Review of Systems: Yes Unobtainable due to mental status [facility] Past Medical History Medical History Substance abuse Alcohol abuse Depression Opioid use disorder Asthma Social History Social History Household Members: Family Household Members Other:: Mom Housing: House Do you presently have visiting nurse or other home services: No Unable to assess alcohol history related to: Unknown Alcohol intake: current Alcohol intake frequency: does not drink Alcohol type: hard liquor Patient Tobacco Use Status: Current everyday Tobacco user Tobacco use type: Cigarette Cigarette Packs Per Day: 1 Cigarettes Per Day: 20.0 e-Cigarette/Vaping Use: Currently Using Substance Use Type: Heroin Advance Directives: No Advance Directives Information Provided: No service: No Current occupational status: employed Current occupation: right hand dominant Physical Exam 2 Vital Signs: Vital Signs: Last Vital Signs Pulse 69 08/15/23 21:46 Resp 12 08/15/23 21:46 BP 123/79 08/15/23 18:45 Pulse Ox 100 08/15/23 21:46 O2 Del Method Room Air 08/15/23 21:46 Oxygen Flow Rate 15 08/15/23 16:55 BMI result Body Mass Index 25.1 Const: Other: Appearance: Alert. Combative Eyes: Pupils equal, round and reactive to light. Dilated pupils bilaterally, 7 mm ENT: Pharynx normal. Screaming in full sentences Neck: Normal inspection. Neck supple. No lymph nodes noted. No crepitus CVS: Tachycardic in the 120s, normal pulse Respiratory: Patient is significantly hypoxic, oxygen saturation in the high 60s with good waveform Abdomen: Soft and nontender. No rigidity. No distention. Skin: Skin warm and dry. Normal skin color. Normal skin turgor. Extremities: No lower extremity edema. No Lacerations. No Rash Neuro: Patient is intoxicated, under the influence of drugs, likely PCP Psych: Combative, on restraints Course Course Course Narrative: -when patient arrived, it was noted that he is hypoxic, oxygen saturations 67% on room air. Patient was placed immediately on a non-rebreather, oxygen saturation improved rapidly to 100%. -patient is too combative, unable to redirect, patient was given 50 mg IM Benadryl, 2 mg Ativan, 5 mg Haldol, patient was still very combative, unable to on coughing put him into his bed from the ambulance stretcher, patient had to be given 10 IM Zyprexa. -after 1 hour, patient was sleeping, restraints were taken off. Oxygen was weaned down to nasal cannula. Medications Administered Discontinued Medications Generic Name Dose Route Start Last Admin Trade Name Freq PRN Reason Stop Dose Admin Diphenhydramine HCl 50 mg 08/15/23 16:40 08/15/23 16:45 Diphenhydramine Hcl 50 Mg/Ml Vial IM 08/15/23 16:41 50 mg ONCE ONE Administration Haloperidol Lactate 5 mg 08/15/23 17:12 08/15/23 16:45 Haloperidol Lactate 5 Mg/Ml Vial IM 08/15/23 17:13 5 mg ONCE ONE Administration Lorazepam 2 mg 08/15/23 16:40 08/15/23 16:45 Lorazepam 2 Mg/Ml Vial IM 08/15/23 16:41 2 mg STAT STA Administration Lorazepam 2 mg 08/15/23 16:40 08/15/23 17:35 Lorazepam 2 Mg/Ml Vial IM 08/15/23 16:41 Not Given ONCE ONE Olanzapine 10 mg 08/15/23 16:48 08/15/23 16:55 Olanzapine 10 Mg Vial IM 08/15/23 16:49 10 mg STAT STA Administration Medical Decision Making Medical Decision Making MDM Narrative: -after the above-mentioned medications, patient has been sleeping, all of the restraints were taken off. Patient's oxygen saturation back to 100% on room air -my interpretation of labs: Hematology and chemistry at baseline, CPK elevated at baseline but less than usual. -plan: Metabolize to freedom and discharge -sign-out given to Dr. Kothari Differential Diagnosis Differential Diagnoses: The differential diagnosis associated with the presentation includes (Alcohol abuse, substance abuse, PCP) Admission/Observation Consideration of admission/observation: Escalation of care including admission/observation considered (Patient is under physician observation in the emergency room, metabolize to freedom) Lab Data MDM Lab Attestation statement: I reviewed the patient's lab results. 08/15/23 20:27 08/15/23 20:27 Labs: Lab Results 08/15/23 Range/Units 20:27 WBC 13.1 H (4.8-10.8) X10*3/uL RBC 5.00 (4.60-5.80) X10*6/uL Hgb 15.0 (14.0-18.0) g/dl Hct 43.4 (42.0-52.0) % MCV 86.8 (80.0-98.0) fL MCH 30.0 (27.0-33.0) pg MCHC 34.6 (31.0-36.0) g/dl RDW 13.2 (11.0-16.0) % Plt Count 270 (160-400) X10*3/uL MPV 10.3 (9.4-12.4) fL Immature Gran % (Auto) 0.3 (0.0-0.4) % Neut % (Auto) 75.3 H (45-73) % Lymph % (Auto) 11.3 L (20-40) % [place] % (Auto) 12.6 H (2-11) % Eos % (Auto) 0.2 (0-4) % Baso % (Auto) 0.3 (0-2) % Lymph # (Auto) 1.5 (1.2-4.9) X10*3/uL [place] # (Auto) 1.7 H (0.1-1.2) X10*3/uL Eos # (Auto) 0.0 (0.0-0.4) X10*3/uL Baso # (Auto) 0.0 (0.0-0.2) X10*3/uL Abs Immat Gran (auto) 0.04 H (0.00-0.03) X10*3/uL Absolute Neuts (auto) 9.9 H (2.0-8.3) x10*3/uL Absolute Nucleated RBC 0.000 (0.0-0.012) X10*3/uL Nucleated RBC % (auto) 0.0 (0.0-0.2) /100WBC Smear Tech's Comments VERIFIED Sodium 142 (135-145) mmol/L Potassium 3.5 (3.3-5.1) mmol/L Chloride 106 (96-108) mmol/L Carbon Dioxide 28 (22-29) mmol/L Anion Gap 12 (12-20) BUN 14 (9-16) mg/dL Creatinine 1.20 (0.5-1.4) mg/dL Estim Creat Clear Calc 95.8 Estimated GFR > 60 Random Glucose 121 H (60-115) mg/dL Calcium 9.4 (8.4-10.2) mg/dL Total Bilirubin 1.0 (0.0-1.0) mg/dL Direct Bilirubin 0.3 (0.0-0.5) mg/dL AST 31 (5-37) U/L ALT 18 (0-40) U/L Alkaline Phosphatase 93 (39-117) U/L Total Creatine Kinase 247 H (38-174) U/L Total Protein 7.7 (6.5-8.0) g/dL Albumin 4.6 (3.5-5.0) g/dL Ethyl Alcohol < 10 mg/dL Critical Care Time Critical Care Time Critical Care Time: Yes Total Critical Care Time: 75 Attestation: I have personally provided critical care time. Time includes review of lab data, radiology results, discussion with consultants, and monitoring for potential decompensation. Intervention performed as documented. Discharge Plan Discharge Clinical Impression: Polysubstance abuse, Hypoxic episode Patient Disposition: Still a Patient Instructions: Polysubstance Abuse (ED) Additional Instructions: Please follow-up with your primary care physician tomorrow. If you have any worsening or new symptoms, please return to the emergency room or call 911 Prescriptions: No Action fluticasone furoate-vilanterol [Breo Ellipta] 100-25 mcg/dose Blister With Device 1 ea inhalation RDAILY Qty: 1 0RF albuterol sulfate 90 mcg/actuation HFA aerosol inhaler 2 puff inhalation Q4-6H PRN (Reason: shortness of breath or wheezing) Qty: 6.7 3RF Rx Instructions: May dispense medication equivalent accepted by patient's insurance albuterol sulfate 2.5 mg /3 mL (0.083 %) solution for nebulization 2.5 mg inhalation Q4-6H PRN (Reason: shortness of breath or wheezing) Qty: 180 2RF Rx Instructions: May dispense medication equivalent accepted by patient's insurance cyclobenzaprine 10 mg tablet 10 mg PO TID PRN (Reason: muscle spasm) Qty: 14 0RF ibuprofen 600 mg tablet 600 mg PO Q8H PRN (Reason: pain) Qty: 14 0RF lidocaine 5 % adhesive patch,medicated 1 patch topical DAILY Qty: 15 0RF Rx Instructions: leave on most painful area for up to 12 hrs naproxen 500 mg tablet 500 mg PO BID PRN (Reason: pain) Qty: 20 0RF albuterol sulfate 90 mcg/actuation HFA aerosol inhaler 2 inh inhalation Q20M PRN (Reason: shortness of breath or wheezing) Qty: 8.5 0RF prednisone 20 mg tablet 40 mg PO DAILY 5 Days Qty: 10 0RF albuterol sulfate [Ventolin HFA] 90 mcg/actuation HFA aerosol inhaler 2 puff inhalation Q4-6H PRN (Reason: shortness of breath or wheezing) Qty: 8.5 1RF prednisone 50 mg tablet 50 mg PO DAILY 4 Days Qty: 4 0RF albuterol sulfate 90 mcg/actuation aerosol powdr breath activated 2 inh inhalation Q4-6H PRN (Reason: shortness of breath or wheezing) Qty: 1 0RF prednisone 20 mg tablet 40 mg PO DAILY 4 Days Qty: 8 0RF sertraline 25 mg tablet 50 mg PO DAILY Qty: 30 0RF (DME) Reset-O Digital Brandy (OUD) Misc See Rx Instructions .MEDSUPPLY Qty: 1 3RF Rx Instructions: As directed (3-4 times a week) 84 days buprenorphine-naloxone [Suboxone] 12-3 mg film 1 film sublingual Q24H Qty: 7 0RF Discharge Date/Time: 08/15/23 22:40 Print Language: Wallisian
[2023-08-15] MEDS: OLANZapine 10 MG VIAL IM (16:55)
--- NOTE | 2023-08-15 17:28 | PC.NURSE ---
Assumed care of pt from resource RN.
--- NOTE | 2023-08-15 19:00 | PC.NURSE ---
assumed care of patient at this time; pt is resting in bed, calm, and cooperative. bilateral wrist restraints removed at this time. pt asking for water, water provided.
[2023-08-15 20:34] LABS: Basophils Percent Auto 0.3 % (0-2); Eosinophils Percent Auto 0.2 % (0-4); Hematocrit 43.4 % (42.0-52.0); Imm Gran Abs Auto 0.04 X10*3/uL (0.00-0.03); Imm Gran Pct Auto 0.3 % (0.0-0.4); Lymphocytes Absolute Auto 1.5 X10*3/uL (1.2-4.9); Lymphocytes Percent Auto 11.3 % (20-40); MANUAL DIFF FLAG SCAN; Mean Corpuscular HGB Conc 34.6 g/dl (31.0-36.0); Mean Corpuscular Volume 86.8 fL (80.0-98.0); Mean Platelet Volume 10.3 fL (9.4-12.4); Monocytes Absolute Auto 1.7 X10*3/uL (0.1-1.2); Monocytes Percent Auto 12.6 % (2-11); Neutrophils Absolute Auto 9.9 x10*3/uL (2.0-8.3); Neutrophils Percent Auto 75.3 % (45-73); Platelet Count 270 X10*3/uL (160-400); Red Cell Distribution Width 13.2 % (11.0-16.0); SCAN SMEAR FLAG 1; White Blood Count 13.1 X10*3/uL (4.8-10.8)
[2023-08-15 20:51] LABS: Alanine Aminotransferase 18 U/L (0-40); Albumin Level 4.6 g/dL (3.5-5.0); Alkaline Phosphatase 93 U/L (39-117); Anion Gap 12 (12-20); Aspartate Amino Transferase 31 U/L (5-37); Bilirubin Direct 0.3 mg/dL (0.0-0.5); Blood Urea Nitrogen 14 mg/dL (9-16); Calcium 9.4 mg/dL (8.4-10.2); Carbon Dioxide 28 mmol/L (22-29); Chloride 106 mmol/L (96-108); Creatinine Clr Calc Pharmacy 95.8; Estimated Glomerular Filt Rate > 60; Glucose Random 121 mg/dL (60-115); Potassium 3.5 mmol/L (3.3-5.1); Sodium 142 mmol/L (135-145); Total Protein 7.7 g/dL (6.5-8.0)
[2023-08-15 20:55] LABS: Ethanol < 10 mg/dL
[2023-08-15 21:21] LABS: SLIDE REVIEW VERIFIED
--- NOTE | 2023-08-15 22:43 | PC.NURSE ---
pt up and out of bed stating he is ready to go home; pt has been calm and cooperative w/ care for the past several hours. has been able to eat and drink w/ no issues. ambulated to the bathroom and back to room w/ steady gait. made aware that pt would like to go home. she states it is ok to allow patient to leave. pt then left the ER.
== END 2023-08-15 22:40 | disposition still patient (30) ==
PROVIDERS: Emergency Provider Emergency Medicine
DX: T40.991A Poisoning by other psychodysleptics [hallucinogens], accidental (unintentional), initial encounter (principal); R09.02 Hypoxemia; F17.219 Nicotine dependence, cigarettes, with unspecified nicotine-induced disorders; F11.10 Opioid abuse, uncomplicated; F12.10 Cannabis abuse, uncomplicated; Z71.6 Tobacco abuse counseling; Z79.899 Other long term (current) drug therapy; Z71.51 Drug abuse counseling and surveillance of drug abuser
CPT/HCPCS: 36415; 80048; 80076; 80307; 82550; 85025; 96372; 99284; 99285; J1200; J1630; J2060; J2359

== ENCOUNTER 2023-10-11 22:20 | Emergency (ER) | payer OTHER, SELFPAY ==
--- NOTE | 2023-10-11 22:30 | PC.NURSE ---
pt borught in by EMS after PCP use, security at bedside changing pt over into hospital attire
[2023-10-11 22:39] VITALS: BP 122/92; BP 138/57; PULSE 101; PULSE 105; RESP 18; TEMP 36.6; O2SAT 90; O2SAT 98; BMI 23.3
--- NOTE | 2023-10-11 22:41 | PC.NURSE ---
pt changed over by security belongings in .
[2023-10-11 23:42] VITALS: BP 121/62; PULSE 70; RESP 16; TEMP 36.4; O2SAT 96
--- NOTE | 2023-10-11 23:48 | ED_ITS ---
HPI - General Adult General Chief complaint: General Medical Stated complaint: PCP USE DISORIENTED Time Seen by Provider: 10/11/23 22:30 Source: patient Mode of arrival: EMS Limitations: no limitations History of Present Illness HPI narrative: Patient comes to the emergency room by ambulance. Police department called EMS to bring the patient to the hospital, seems that patient has been using drugs, likely PCP. Per EMS, oxygen saturation was 84%. No Narcan was given, patient was fully awake and conversational but altered. Patient has no complaints. Related Data Previous Rx's Medication Instructions Recorded albuterol sulfate 90 mcg/actuation 1 puff inhalation RQ4H PRN ASTHMA 07/09/22 aerosol inhaler (Ventolin HFA) #8.5 grams fluticasone furoate 100 1 ea inhalation RDAILY #1 ea 07/09/22 mcg-vilanterol 25 mcg/dose inhalation powder (Breo Ellipta) naloxone 4 mg/actuation nasal 4 mg intranasal Q2M PRN opioid 09/08/22 spray (Narcan) overdose #2 ea sertraline 25 mg tablet 50 mg (2 x 25 mg) PO DAILY #30 tabs 09/23/22 [employer], OUD (Reset-O #1 ea 09/30/22 Digital Brandy (OUD)) buprenorphine 12 mg-naloxone 3 mg 1 film sublingual Q24H #7 ea 10/07/22 sublingual film (Suboxone) albuterol sulfate 2.5 mg/3 mL 2.5 mg (3 mL) inhalation Q4-6H PRN 10/23/22 (0.083 %) solution for nebulization shortness of breath or wheezing #180 mL albuterol sulfate 90 mcg/actuation 2 puff inhalation Q4-6H PRN 10/23/22 aerosol inhaler shortness of breath or wheezing #6.7 grams doxycycline monohydrate 100 mg 100 mg PO BID 10 days #20 caps 10/23/22 capsule prednisone 20 mg tablet 40 mg (2 x 20 mg) PO DAILY 5 days 10/23/22 #10 tabs albuterol sulfate 90 mcg/actuation 1 inh inhalation QID PRN shortness 11/01/22 aerosol inhaler of breath or wheezing #8.5 grams azithromycin 250 mg tablet See Rx Instructions PO .COMPLEX #6 11/01/22 (Zithromax Z-Gustavo) tabs prednisone 20 mg tablet 20 mg PO BID #10 tabs 11/01/22 cyclobenzaprine 10 mg tablet 10 mg PO TID PRN muscle spasm #14 04/01/23 tabs ibuprofen 600 mg tablet 600 mg PO Q8H PRN pain #14 tabs 04/01/23 lidocaine 5 % topical patch 1 patch topical DAILY #15 ea 04/01/23 naproxen 500 mg tablet 500 mg PO BID PRN pain #20 tabs 04/29/23 prednisone 20 mg tablet 60 mg (3 x 20 mg) PO DAILY 7 days 05/08/23 #21 tabs albuterol sulfate 90 mcg/actuation 2 puff inhalation Q4-6H PRN 05/17/23 aerosol inhaler (ProAir HFA) shortness of breath or wheezing #8.5 grams albuterol sulfate 90 mcg/actuation 2 puff inhalation Q4-6H PRN 06/27/23 aerosol inhaler (ProAir HFA) shortness of breath or wheezing #8.5 grams prednisone 20 mg tablet 40 mg (2 x 20 mg) PO DAILY #10 tabs 06/27/23 doxycycline hyclate 100 mg capsule 100 mg PO BID 7 days #14 caps 07/18/23 metronidazole 500 mg tablet 500 mg PO BID 7 days #14 tabs 07/18/23 levofloxacin 500 mg tablet 500 mg PO DAILY #9 tabs 08/12/23 Allergies Allergy/AdvReac Type Severity Reaction Status Date / Time seafood Allergy Severe Anaphylaxis Verified 07/18/23 17:30 Penicillins [PENICILLINS] Allergy Intermediate RASH Verified 07/18/23 17:30 Review of Systems Review of Systems: Constitutional : No Weight loss, No Fever, No Chills, No Night Sweats, No Fatigue, No Malaise ENT/Mouth : No Hearing loss, No Ear Pain, No Nasal Congestion, No Sinus Pain, No Hoarseness, No sore throat, No Rhinorrhea, No Swallowing Difficulty Eyes: No Eye Pain, No Swelling, No Redness, No Foreign Body, No Discharge, No Vision Changes Cardiovascular : No Chest Pain, No SOB, No Dyspnea on Exertion, No Orthopnea, No Edema, No Palpitations Respiratory : No Cough, No Sputum, No Wheezing, No Smoke Exposure, No Dyspnea Gastrointestinal : No Nausea, No Vomiting, No Diarrhea, No Constipation, No abdominal Pain, No Hematochezia, No Melena Genitourinary : no irregular bleeding, No Dysuria, No Urinary Frequency, No Hematuria, No Urinary Incontinence, No Urgency, No Flank Pain, No Urinary Flow Changes, No Hesitancy Musculoskeletal : No joint pain, No Myalgias, No Joint Swelling Skin : No Skin Lesions, No rash Neuro : No Weakness, No Numbness, No Paresthesias, No Loss of Consciousness, No Dizziness, No Headache Psych : No Anxiety/Panic, No Depression, No SI/HI/AH/VH, admits to substance abuse Heme/Lymph: No Bruising, No Bleeding,No Lymphadenopathy Endocrine : No Polyuria, No Polydipsia, No Temperature Intolerance [facility] Past Medical History Medical History Substance abuse Alcohol abuse Depression Opioid use disorder Asthma Social History Social History Household Members: Family Household Members Other:: Mom Housing: House Do you presently have visiting nurse or other home services: No Unable to assess alcohol history related to: Unknown Alcohol intake: current Alcohol intake frequency: does not drink Alcohol type: hard liquor Patient Tobacco Use Status: Current everyday Tobacco user Tobacco use type: Cigarette Cigarette Packs Per Day: 1 Cigarettes Per Day: 20.0 e-Cigarette/Vaping Use: Currently Using Substance Use Type: Hallucinogens Advance Directives: No Advance Directives Information Provided: Yes service: No Current occupational status: employed Current occupation: right hand dominant Physical Exam ED Vital Signs: Vital Signs - 24 hr 10/11/23 22:39 10/11/23 23:42 Temperature 97.8 F 97.5 F Pulse Rate 101 H 70 Respiratory Rate 18 16 Blood Pressure 138/57 L 121/62 Pulse Oximetry 98 96 Oxygen Delivery Method Room Air Room Air BMI result Body Mass Index 23.3 Const Other: Appearance: Alert. Oriented X3. Patient intermittently falls asleep and wakes up screaming Eyes: Pupils equal, round and reactive to light. ENT: Pharynx normal. Neck: Normal inspection. Neck supple. No lymph nodes noted. No crepitus CVS: Normal heart rate and rhythm. Pulses normal. Normal S1 and S2 Respiratory: No respiratory distress. Patient's oxygen saturation between 88 and 99%. If patient falls asleep, patient's O2 drops. Abdomen: Soft and nontender. No rigidity. No distention. Skin: Skin warm and dry. Normal skin color. Normal skin turgor. Extremities: No lower extremity edema. No Lacerations. No Rash Neuro: Oriented X 3. No motor deficit. No sensory deficit. Moving all extremities. No slurred speech. CN 2 through 12 grossly intact Psych: calm, cooperative, under the influence of drugs Course Course Course Narrative: -for the most time, patient has been awake, alert, making weird noises, and occasionally screaming and falling asleep. -patient's vitals stable -patient known from prior visits to use opiates, fentanyl, benzodiazepines and marijuana -patient is under physician observation, started at 23:00 -patient's mother came, states that whenever the patient is ready to close she will pick him up Medical Decision Making Medical Decision Making MDM Narrative: -02:27, patient is awake, alert and oriented x3, vitals stable, patient walking around the emergency room, coherent. Patient's family will be picking him up shortly -patient given 1 dose of Zofran for nausea and vomiting. Patient feeling better Differential Diagnosis Differential Diagnoses: The differential diagnosis associated with the presentation includes (Anxiety, substance abuse,) Discharge Plan Discharge Clinical Impression: Polysubstance abuse Patient Disposition: Home, Self-Care Instructions: Polysubstance Abuse (ED) Additional Instructions: Please follow-up with your primary care physician tomorrow. If you have any worsening or new symptoms, please return to the emergency room or call 911 Prescriptions: No Action albuterol sulfate [Ventolin HFA] 90 mcg/actuation Hfa Aerosol Inhaler 1 puff inhalation RQ4H PRN (Reason: ASTHMA) Qty: 8.5 0RF fluticasone furoate-vilanterol [Breo Ellipta] 100-25 mcg/dose Blister With Device 1 ea inhalation RDAILY Qty: 1 0RF albuterol sulfate 90 mcg/actuation HFA aerosol inhaler 2 puff inhalation Q4-6H PRN (Reason: shortness of breath or wheezing) Qty: 6.7 3RF Rx Instructions: May dispense medication equivalent accepted by patient's insurance albuterol sulfate 2.5 mg /3 mL (0.083 %) solution for nebulization 2.5 mg inhalation Q4-6H PRN (Reason: shortness of breath or wheezing) Qty: 180 2RF Rx Instructions: May dispense medication equivalent accepted by patient's insurance prednisone 20 mg tablet 40 mg PO DAILY 5 Days Qty: 10 0RF doxycycline monohydrate 100 mg capsule 100 mg PO BID 10 Days Qty: 20 0RF prednisone 20 mg tablet 20 mg PO BID Qty: 10 0RF albuterol sulfate 90 mcg/actuation HFA aerosol inhaler 1 inh inhalation QID PRN (Reason: shortness of breath or wheezing) Qty: 8.5 0RF azithromycin [Zithromax Z-Gustavo] 250 mg tablet See Rx Instructions .ROUTE .COMPLEX Qty: 6 0RF Rx Instructions: For 250 mg dose pack: take 500 mg today (day 1), then 250 mg for 4 days (days 2-5) cyclobenzaprine 10 mg tablet 10 mg PO TID PRN (Reason: muscle spasm) Qty: 14 0RF ibuprofen 600 mg tablet 600 mg PO Q8H PRN (Reason: pain) Qty: 14 0RF lidocaine 5 % adhesive patch,medicated 1 patch topical DAILY Qty: 15 0RF Rx Instructions: leave on most painful area for up to 12 hrs prednisone 20 mg tablet 60 mg PO DAILY 7 Days Qty: 21 0RF naproxen 500 mg tablet 500 mg PO BID PRN (Reason: pain) Qty: 20 0RF albuterol sulfate [ProAir HFA] 90 mcg/actuation HFA aerosol inhaler 2 puff inhalation Q4-6H PRN (Reason: shortness of breath or wheezing) Qty: 8.5 0RF albuterol sulfate [ProAir HFA] 90 mcg/actuation HFA aerosol inhaler 2 puff inhalation Q4-6H PRN (Reason: shortness of breath or wheezing) Qty: 8.5 0RF prednisone 20 mg tablet 40 mg PO DAILY Qty: 10 0RF doxycycline hyclate 100 mg capsule 100 mg PO BID 7 Days Qty: 14 0RF metronidazole 500 mg tablet 500 mg PO BID 7 Days Qty: 14 0RF levofloxacin 500 mg tablet 500 mg PO DAILY Qty: 9 0RF naloxone [Narcan] 4 mg/actuation spray,non-aerosol 4 mg intranasal Q2M PRN (Reason: opioid overdose) Qty: 2 0RF Rx Instructions: spray 1 dose into ONE nostril; alternate nostrils w each dose until help arrives sertraline 25 mg tablet 50 mg PO DAILY Qty: 30 0RF (DME) Reset-O Digital Brandy (OUD) Misc See Rx Instructions .MEDSUPPLY Qty: 1 3RF Rx Instructions: As directed (3-4 times a week) 84 days buprenorphine-naloxone [Suboxone] 12-3 mg film 1 film sublingual Q24H Qty: 7 0RF
--- NOTE | 2023-10-12 00:36 | PC.NURSE ---
pt has remained calm/cooperative axox4 since arrival. resp even and unlabored communicating needs appropriately. call abdul within reach.
--- NOTE | 2023-10-12 02:27 | PC.NURSE ---
pt had a vomiting episode after drinking 3 cans of gingerale and [address] Post aware. Verbal order for sublingual zofran. pt tolerated well now tolerating po intake.
[2023-10-12] MEDS: Ondansetron ODT 4 MG TAB.RAPDIS TRANSLINGU (02:29)
[2023-10-12] MEDS: Prochlorperazine Edisylate 10 MG/2 ML VIAL IM (02:57)
--- NOTE | 2023-10-12 03:32 | PC.NURSE ---
pt had another vomiting episode. im compazine given per oct. pt and mom in agreement. both educated on d/c instructions and verbalize understanding. pt d/c home with mom axox4 ambulatory with steady gait.
== END 2023-10-12 03:05 | disposition home or self-care (01) ==
PROVIDERS: Emergency Provider Emergency Medicine
DX: R41.0 Disorientation, unspecified (principal); R11.2 Nausea with vomiting, unspecified; F17.210 Nicotine dependence, cigarettes, uncomplicated; F19.90 Other psychoactive substance use, unspecified, uncomplicated; Z79.899 Other long term (current) drug therapy
CPT/HCPCS: 96372; 99283; 99284; J0737

== ENCOUNTER 2023-12-03 18:56 | Emergency (ER) | payer OTHER, SELFPAY ==
--- NOTE | ~2023-12-03 | XR_ITS ---
EXAMINATION: XR CHEST CLINICAL INFORMATION: Wheezing. COMPARISON: 07/24/2023. TECHNIQUE: 2 views of the chest were obtained. FINDINGS: No significant abnormality is noted involving the heart, lungs, mediastinum, bony thorax or soft tissues. XR/XR chest 2V IMPRESSION: Unremarkable examination.
[2023-12-03 19:06] VITALS: BP 147/85; PULSE 77; RESP 20; TEMP 36.5; O2SAT 99; BMI 23.8
--- NOTE | 2023-12-03 19:09 | PC.NURSE ---
pt biba from the bathroom at a bar, per ems pt overdose on fentnyl and heroin, pt given 8mg narcan by ems. pt denies drug use at this time, denies si/hi. pt a&ox4, respirations even and unlabored, 99% on room air. pt changed over by security, belongings placed in decon.
--- NOTE | 2023-12-03 19:14 | MHC.EDTECH ---
Patient came in by ambulance,security at bedside foe changeover,all belongings are in the [facility] ROOM.Vitals taken
[2023-12-03 22:36] VITALS: BP 121/59; PULSE 84; RESP 18; TEMP 36.6; O2SAT 96
--- NOTE | 2023-12-03 22:37 | MHC.EDTECH ---
At this time patient had requested gina octavia, and a sandwich. After speaking with the nurse it was cleared. This tech gave the patient a cup of ice with gina octavia, and a sandwich.
--- NOTE | 2023-12-03 22:53 | ED.OVERDOSE ---
HPI - Overdose General Chief Complaint: Overdose Stated Complaint: OD heroin Time Seen by Provider: 12/03/23 22:19 Source: patient, EMS and RN notes reviewed Mode of arrival: EMS Limitations: no limitations History of Present Illness HPI Narrative: 28 year old male with pmhx significant for etoh abuse, depression, anxiety, opioid use disorder, and asthma presents to the ED today via EMS for suspected overdose occurring [employer] [employer] in ED. Per EMS, patient was found in a friends bathroom in [place] after OD on fentanyl and heroin. 8mg Narcan given en route to ED. Patient states that he was smoking marijuana and believes it was laced with something. When asked where he purchased the marijuana, he states I've had it . He denies any other ilicit substance use or etoh consumption. He denies SI/HI. denies AH/VH/TH. His only concern at present is my asthma . Endorses wheezing. He is requesting to speak with care team/ recovery. Related Data Previous Rx's ?Medication ?Instructions ?Recorded albuterol sulfate 90 mcg/actuation 1 puff inhalation RQ4H PRN ASTHMA 07/09/22 aerosol inhaler (Ventolin HFA) #8.5 grams fluticasone furoate 100 1 ea inhalation RDAILY #1 ea 07/09/22 mcg-vilanterol 25 mcg/dose inhalation powder (Breo Ellipta) naloxone 4 mg/actuation nasal 4 mg intranasal Q2M PRN opioid 09/08/22 spray (Narcan) overdose #2 ea sertraline 25 mg tablet 50 mg (2 x 25 mg) PO DAILY #30 tabs 09/23/22 digital therapeutics, OUD (Reset-O #1 ea 09/30/22 Digital Brandy (OUD)) buprenorphine 12 mg-naloxone 3 mg 1 film sublingual Q24H #7 ea 10/07/22 sublingual film (Suboxone) albuterol sulfate 2.5 mg/3 mL 2.5 mg (3 mL) inhalation Q4-6H PRN 10/23/22 (0.083 %) solution for nebulization shortness of breath or wheezing #180 mL albuterol sulfate 90 mcg/actuation 2 puff inhalation Q4-6H PRN 10/23/22 aerosol inhaler shortness of breath or wheezing #6.7 grams doxycycline monohydrate 100 mg 100 mg PO BID 10 days #20 caps 10/23/22 capsule prednisone 20 mg tablet 40 mg (2 x 20 mg) PO DAILY 5 days 10/23/22 #10 tabs albuterol sulfate 90 mcg/actuation 1 inh inhalation QID PRN shortness 11/01/22 aerosol inhaler of breath or wheezing #8.5 grams azithromycin 250 mg tablet See Rx Instructions PO .COMPLEX #6 11/01/22 (Zithromax Z-Gustavo) tabs prednisone 20 mg tablet 20 mg PO BID #10 tabs 11/01/22 cyclobenzaprine 10 mg tablet 10 mg PO TID PRN muscle spasm #14 04/01/23 tabs ibuprofen 600 mg tablet 600 mg PO Q8H PRN pain #14 tabs 04/01/23 lidocaine 5 % topical patch 1 patch topical DAILY #15 ea 04/01/23 naproxen 500 mg tablet 500 mg PO BID PRN pain #20 tabs 04/29/23 prednisone 20 mg tablet 60 mg (3 x 20 mg) PO DAILY 7 days 05/08/23 #21 tabs albuterol sulfate 90 mcg/actuation 2 puff inhalation Q4-6H PRN 05/17/23 aerosol inhaler (ProAir HFA) shortness of breath or wheezing #8.5 grams albuterol sulfate 90 mcg/actuation 2 puff inhalation Q4-6H PRN 06/27/23 aerosol inhaler (ProAir HFA) shortness of breath or wheezing #8.5 grams prednisone 20 mg tablet 40 mg (2 x 20 mg) PO DAILY #10 tabs 06/27/23 doxycycline hyclate 100 mg capsule 100 mg PO BID 7 days #14 caps 07/18/23 metronidazole 500 mg tablet 500 mg PO BID 7 days #14 tabs 07/18/23 levofloxacin 500 mg tablet 500 mg PO DAILY #9 tabs 08/12/23 albuterol sulfate 90 mcg/actuation 2 inh inhalation Q20M PRN 12/04/23 aerosol inhaler shortness of breath or wheezing #8.5 grams Allergies Allergy/AdvReac Type Severity Reaction Status Date / Time seafood Allergy Severe Anaphylaxis Verified 12/03/23 19:07 Penicillins [PENICILLINS] Allergy Intermediate RASH Verified 12/03/23 19:07 Review of Systems Review of Systems: Constitutional: No fever, chills, fatigue, night sweats, weight changes ENT/Mouth: No ear pain, hearing loss, nasal congestion, sinus pain, rhinorrhea, sore throat Eyes: No eye pain, swelling, redness, vision changes, discharge Cardio: No chest pain, palpitations, GERARDO, orthopnea, peripheral edema Pulm: No SOB, cough, sputum, wheezing, dyspnea, hemoptysis, +wheezing GI: No nausea, vomiting, hematemesis, abdominal pain, diarrhea, constipation, hematochezia, melena : No irregular bleeding, dysuria, frequency, urgency, hesitancy, hematuria, flank pain, urinary flow changes, urinary incontinence or retention MSK: No back pain, neck pain, joint pain, myalgias Skin: No lesions, rashes Neuro: No weakness, numbness, paresthesias, LOC, dizziness, headache Psych: No anxiety/panic, depression, SI/HI, AH/VH All other systems reviewed and are negative. [facility] Past Medical History Attestation statement: The following information was validated with the patient. Source: old records reviewed and nursing notes reviewed Medical History Substance abuse Alcohol abuse Depression Opioid use disorder Asthma Social History Social History Household Members: Family Household Members Other:: Mom Housing: House Do you presently have visiting nurse or other home services: No Unable to assess alcohol history related to: Unknown Alcohol intake: current Alcohol intake frequency: does not drink Alcohol type: hard liquor Patient Tobacco Use Status: Current everyday Tobacco user Tobacco use type: Cigarette Cigarette Packs Per Day: 1 Cigarettes Per Day: 20.0 Smoked in Last 30 Days: No e-Cigarette/Vaping Use: Currently Using Use of substances other than those prescribed or required for medical reasons: Yes Substance Use Type: Heroin Advance Directives: No Advance Directives Information Provided: No service: No Current occupational status: employed Current occupation: right hand dominant Physical Exam Vital Signs: Vital Signs: Last Vital Signs Temp 98.6 F 12/04/23 00:44 Pulse 109 H 12/04/23 00:44 Resp 14 12/04/23 00:44 BP 103/60 12/04/23 00:44 Pulse Ox 98 12/04/23 00:44 O2 Del Method Room Air 12/04/23 00:44 BMI result Body Mass Index 23.8 Patient tachycardic, vitals otherwise WNL Const: General: cooperative, healthy appearing, comfortable and no acute distress Orientation/consciousness: patient oriented x3 Limitations: no limitations HEENT: Head: Yes normal to inspection, Yes No palpable skull fracture present, Yes normocephalic and Yes atraumatic Eyes: General: appearance normal, both eyes and all related structures Conjunctivae: conjunctivae normal Sclerae: sclerae normal Pupils: Equal, round and reactive pupils present Neck: Neck: Yes normal visual inspection, Yes full ROM and Yes no lymphadenopathy Chest: Chest palpation & inspection: normal inspection of the chest and normal palpation of entire chest wall Resp: Other: + diffuse expiratory wheezes Effort & Inspection: normal respiratory effort, able to speak in complete sentences and no respiratory distress Cardio: Rate: regular rate Rhythm: regular rhythm GI: Inspection: Yes normal to inspection Palpation (GI): Soft to palpation Skin: General skin exam: no rashes or lesions noted Neuro: Other: + ambulating with steady gait General: patient oriented x3 Cranial nerves: Yes Equal, round and reactive pupils present Extrem: General: Yes normal to inspection Course Course Course Narrative: 0136-- bilateral expiratory wheezes improved with RT breathing treatment. Chest x-ray unremarkable. No signs of pneumonia or effusion. Physician observation initiated pending care team eval and disposition. Medications Administered Discontinued Medications Generic Name Dose Route Start Last Admin Trade Name Freq PRN Reason Stop Dose Admin Albuterol Sulfate 7.5 mg/ 10 mg 12/03/23 23:42 12/03/23 23:46 Albuterol Sulfate 2.5 mg INHALE 12/03/23 23:43 10 mg ONCE ONE Administration Medical Decision Making Medical Decision Making [facility] Narrative: 28 year old male with pmhx significant for etoh abuse, depression, anxiety, opioid use disorder, and asthma presents to the ED today via EMS for suspected overdose occurring [employer] in ED. patient tachycardic likely secondary to albuterol treatment. Vitals otherwise WNL. A&O x3. exam nonfocal. He is nontoxic-appearing and in no acute distress. RRR. Lungs with diffuse wheezes. Normal effort of breathing. No signs of respiratory distress. Differential diagnosis includes overdose, polysubstance use, asthma, pneumonia Plan for chest x-ray, breathing treatment, care team evaluation. Differential Diagnosis Differential Diagnoses: The differential diagnosis associated with the presentation includes as above. Admission/Observation Consideration of admission/observation: Escalation of care including admission/observation considered Independent Interpretation I performed an independent interpretation of an: Plain X-Ray Interpretation: Chest x-ray does not demonstrate consolidations or infiltrates to suggest pneumonia, agree with radiologist's interpretation. Radiology Impression Discussion of test interpretation with radiology: I have reviewed the radiologist's reading. Radiologist Impression: EXAMINATION: XR CHEST CLINICAL INFORMATION: Wheezing. COMPARISON: 07/24/2023. TECHNIQUE: 2 views of the chest were obtained. FINDINGS: No significant abnormality is noted involving the heart, lungs, mediastinum, bony thorax or soft tissues. XR/XR chest 2V IMPRESSION: Unremarkable examination. Independent Historian Clinical information obtained from an independent historian. History obtained from or confirmed by: EMS External Record Review External record reviewed: Inpatient record, Office record, Outpatient record, Prior outpatient labs, Prior outpatient radiology, Primary care record and Outside ED record Chronic Conditions Patient?s care impacted by: Other (Opiate use disorder, depression) Social Determinants Patient?s care significantly limited by Social Determinants of Health including: Other Social Determinant of Health Critical Care Time Critical Care Time Critical Care Time: Yes Total Critical Care Time: 50 Attestation: Critical care time in the amount of 50 minutes has been provided to the patient in terms of direct patient care, frequent reevaluation, review and interpretation of medical data and results, and management of potentially life-threatening conditions. This is all outside of any medical procedures. Discharge Plan Discharge Clinical Impression: Overdose, Asthma exacerbation Patient Disposition: Still a Patient Instructions: Asthma (ED), Adult Overdose (ED) Prescriptions: New albuterol sulfate 90 mcg/actuation HFA aerosol inhaler 2 inh inhalation Q20M PRN (Reason: shortness of breath or wheezing) Qty: 8.5 0RF No Action albuterol sulfate [Ventolin HFA] 90 mcg/actuation Hfa Aerosol Inhaler 1 puff inhalation RQ4H PRN (Reason: ASTHMA) Qty: 8.5 0RF fluticasone furoate-vilanterol [Breo Ellipta] 100-25 mcg/dose Blister With Device 1 ea inhalation RDAILY Qty: 1 0RF albuterol sulfate 90 mcg/actuation HFA aerosol inhaler 2 puff inhalation Q4-6H PRN (Reason: shortness of breath or wheezing) Qty: 6.7 3RF Rx Instructions: May dispense medication equivalent accepted by patient's insurance albuterol sulfate 2.5 mg /3 mL (0.083 %) solution for nebulization 2.5 mg inhalation Q4-6H PRN (Reason: shortness of breath or wheezing) Qty: 180 2RF Rx Instructions: May dispense medication equivalent accepted by patient's insurance prednisone 20 mg tablet 40 mg PO DAILY 5 Days Qty: 10 0RF doxycycline monohydrate 100 mg capsule 100 mg PO BID 10 Days Qty: 20 0RF prednisone 20 mg tablet 20 mg PO BID Qty: 10 0RF albuterol sulfate 90 mcg/actuation HFA aerosol inhaler 1 inh inhalation QID PRN (Reason: shortness of breath or wheezing) Qty: 8.5 0RF azithromycin [Zithromax Z-Gustavo] 250 mg tablet See Rx Instructions .ROUTE .COMPLEX Qty: 6 0RF Rx Instructions: For 250 mg dose pack: take 500 mg today (day 1), then 250 mg for 4 days (days 2-5) cyclobenzaprine 10 mg tablet 10 mg PO TID PRN (Reason: muscle spasm) Qty: 14 0RF ibuprofen 600 mg tablet 600 mg PO Q8H PRN (Reason: pain) Qty: 14 0RF lidocaine 5 % adhesive patch,medicated 1 patch topical DAILY Qty: 15 0RF Rx Instructions: leave on most painful area for up to 12 hrs prednisone 20 mg tablet 60 mg PO DAILY 7 Days Qty: 21 0RF naproxen 500 mg tablet 500 mg PO BID PRN (Reason: pain) Qty: 20 0RF albuterol sulfate [ProAir HFA] 90 mcg/actuation HFA aerosol inhaler 2 puff inhalation Q4-6H PRN (Reason: shortness of breath or wheezing) Qty: 8.5 0RF albuterol sulfate [ProAir HFA] 90 mcg/actuation HFA aerosol inhaler 2 puff inhalation Q4-6H PRN (Reason: shortness of breath or wheezing) Qty: 8.5 0RF prednisone 20 mg tablet 40 mg PO DAILY Qty: 10 0RF doxycycline hyclate 100 mg capsule 100 mg PO BID 7 Days Qty: 14 0RF metronidazole 500 mg tablet 500 mg PO BID 7 Days Qty: 14 0RF levofloxacin 500 mg tablet 500 mg PO DAILY Qty: 9 0RF naloxone [Narcan] 4 mg/actuation spray,non-aerosol 4 mg intranasal Q2M PRN (Reason: opioid overdose) Qty: 2 0RF Rx Instructions: spray 1 dose into ONE nostril; alternate nostrils w each dose until help arrives sertraline 25 mg tablet 50 mg PO DAILY Qty: 30 0RF (DME) Reset-O Digital Brandy (OUD) Misc See Rx Instructions .MEDSUPPLY Qty: 1 3RF Rx Instructions: As directed (3-4 times a week) 84 days buprenorphine-naloxone [Suboxone] 12-3 mg film 1 film sublingual Q24H Qty: 7 0RF Print Language: Hungarian
[2023-12-03] MEDS: Albuterol Sulfate 7.5 MG, Albuterol Sulfate (0.083%) 2.5 MG 10 MG INHALE (23:46)
[2023-12-03 23:49] VITALS: PULSE 101; RESP 18; O2SAT 98
[2023-12-04 00:44] VITALS: BP 103/60; PULSE 109; RESP 14; TEMP 37; O2SAT 98
[2023-12-04] MEDS: Naloxone HCl Nasal TAKE HOME 4 MG SPRAY 8 MG NOSTRILALT ×2 (01:55→11:02)
--- NOTE | 2023-12-04 01:57 | PC.NURSE ---
pt given take home narcan, pt instructed on use, pt reports understanding.
[2023-12-04 06:28] VITALS: BP 110/66; PULSE 77; RESP 14; TEMP 36.6; O2SAT 100
[2023-12-04 11:03] VITALS: BP 108/86; PULSE 64; RESP 18; TEMP 37; O2SAT 98
== END 2023-12-04 11:03 | disposition home or self-care (01) ==
PROVIDERS: Emergency Provider Emergency Medicine
DX: T40.411A Poisoning by fentanyl or fentanyl analogs, accidental (unintentional), initial encounter (principal); T40.1X1A Poisoning by heroin, accidental (unintentional), initial encounter; F11.90 Opioid use, unspecified, uncomplicated; F12.90 Cannabis use, unspecified, uncomplicated; F10.10 Alcohol abuse, uncomplicated; Y92.002 Bathroom of unspecified non-institutional (private) residence as the place of occurrence of the external cause; J45.901 Unspecified asthma with (acute) exacerbation
CPT/HCPCS: 71046; 94640; 99285

== ENCOUNTER 2023-12-15 23:26 | Emergency (ER) | payer OTHER, SELFPAY ==
--- NOTE | ~2023-12-15 | XR_ITS ---
EXAMINATION: XR CHEST CLINICAL INFORMATION: Dyspnea. COMPARISON: 12/03/2023 TECHNIQUE: 2 views of the chest were obtained. FINDINGS: No significant abnormality is noted involving the heart, lungs, mediastinum, bony thorax or soft tissues. XR/XR chest 2V IMPRESSION: Unremarkable examination.
[2023-12-15 23:32] VITALS: BP 128/67; PULSE 86; RESP 18; TEMP 36.8; O2SAT 94; BMI 23.5
[2023-12-16] VITALS (9 sets, daily range): BP systolic 114–128; BP diastolic 61–68; PULSE 90–109; RESP 16–23; TEMP 36.5–36.9; O2SAT 90–95
[2023-12-16 00:53] LABS: Influenza A PCR NEGATIVE (Negative); Influenza B PCR NEGATIVE (Negative); Resp Syncy Virus RNA Qual PCR NEGATIVE (Negative); SARS COV2 PCR INHOUSE NEGATIVE (Negative)
--- NOTE | 2023-12-16 03:09 | ED.GENADULT ---
HPI - General Adult General Chief complaint: Upper Respiratory Symptoms Stated complaint: Asthma Time Seen by Provider: 12/16/23 03:07 Source: patient Mode of arrival: ambulatory Limitations: no limitations History of Present Illness HPI narrative: Patient comes to the emergency room complaining of wheezing. Patient states that he has been having cough for 2 weeks, ran out of his inhaler about a week ago. Patient is chest pain, no nausea vomiting diarrhea. Related Data Previous Rx's ?Medication ?Instructions ?Recorded albuterol sulfate 90 mcg/actuation 1 puff inhalation RQ4H PRN ASTHMA 07/09/22 aerosol inhaler (Ventolin HFA) #8.5 grams fluticasone furoate 100 1 ea inhalation RDAILY #1 ea 07/09/22 mcg-vilanterol 25 mcg/dose inhalation powder (Breo Ellipta) naloxone 4 mg/actuation nasal 4 mg intranasal Q2M PRN opioid 09/08/22 spray (Narcan) overdose #2 ea sertraline 25 mg tablet 50 mg (2 x 25 mg) PO DAILY #30 tabs 09/23/22 [employer], OUD (Reset-O #1 ea 09/30/22 Digital Brandy (OUD)) buprenorphine 12 mg-naloxone 3 mg 1 film sublingual Q24H #7 ea 10/07/22 sublingual film (Suboxone) albuterol sulfate 2.5 mg/3 mL 2.5 mg (3 mL) inhalation Q4-6H PRN 10/23/22 (0.083 %) solution for nebulization shortness of breath or wheezing #180 mL albuterol sulfate 90 mcg/actuation 2 puff inhalation Q4-6H PRN 10/23/22 aerosol inhaler shortness of breath or wheezing #6.7 grams doxycycline monohydrate 100 mg 100 mg PO BID 10 days #20 caps 10/23/22 capsule prednisone 20 mg tablet 40 mg (2 x 20 mg) PO DAILY 5 days 10/23/22 #10 tabs albuterol sulfate 90 mcg/actuation 1 inh inhalation QID PRN shortness 11/01/22 aerosol inhaler of breath or wheezing #8.5 grams azithromycin 250 mg tablet See Rx Instructions PO .COMPLEX #6 11/01/22 (Zithromax Z-Gustavo) tabs prednisone 20 mg tablet 20 mg PO BID #10 tabs 11/01/22 cyclobenzaprine 10 mg tablet 10 mg PO TID PRN muscle spasm #14 04/01/23 tabs ibuprofen 600 mg tablet 600 mg PO Q8H PRN pain #14 tabs 04/01/23 lidocaine 5 % topical patch 1 patch topical DAILY #15 ea 04/01/23 naproxen 500 mg tablet 500 mg PO BID PRN pain #20 tabs 04/29/23 prednisone 20 mg tablet 60 mg (3 x 20 mg) PO DAILY 7 days 05/08/23 #21 tabs albuterol sulfate 90 mcg/actuation 2 puff inhalation Q4-6H PRN 05/17/23 aerosol inhaler (ProAir HFA) shortness of breath or wheezing #8.5 grams albuterol sulfate 90 mcg/actuation 2 puff inhalation Q4-6H PRN 06/27/23 aerosol inhaler (ProAir HFA) shortness of breath or wheezing #8.5 grams prednisone 20 mg tablet 40 mg (2 x 20 mg) PO DAILY #10 tabs 06/27/23 doxycycline hyclate 100 mg capsule 100 mg PO BID 7 days #14 caps 07/18/23 metronidazole 500 mg tablet 500 mg PO BID 7 days #14 tabs 07/18/23 levofloxacin 500 mg tablet 500 mg PO DAILY #9 tabs 08/12/23 albuterol sulfate 90 mcg/actuation 2 inh inhalation Q20M PRN 12/04/23 aerosol inhaler shortness of breath or wheezing #8.5 grams prednisone 20 mg tablet 40 mg (2 x 20 mg) PO DAILY 5 days 12/04/23 #10 tabs Allergies Allergy/AdvReac Type Severity Reaction Status Date / Time seafood Allergy Severe Anaphylaxis Verified 12/15/23 23:33 Penicillins [PENICILLINS] Allergy Intermediate RASH Verified 12/15/23 23:33 Review of Systems Review of Systems: Constitutional : No Weight loss, No Fever, No Chills, No Night Sweats, No Fatigue, No Malaise ENT/Mouth : No Hearing loss, No Ear Pain, No Nasal Congestion, No Sinus Pain, No Hoarseness, No sore throat, No Rhinorrhea, No Swallowing Difficulty Eyes: No Eye Pain, No Swelling, No Redness, No Foreign Body, No Discharge, No Vision Changes Cardiovascular : No Chest Pain, No SOB, No Dyspnea on Exertion, No Orthopnea, No Edema, No Palpitations Respiratory : Complaining of cough, wheezing Gastrointestinal : No Nausea, No Vomiting, No Diarrhea, No Constipation, No abdominal Pain, No Hematochezia, No Melena Genitourinary : no irregular bleeding, No Dysuria, No Urinary Frequency, No Hematuria, No Urinary Incontinence, No Urgency, No Flank Pain, No Urinary Flow Changes, No Hesitancy Musculoskeletal : No joint pain, No Myalgias, No Joint Swelling Skin : No Skin Lesions, No rash Neuro : No Weakness, No Numbness, No Paresthesias, No Loss of Consciousness, No Dizziness, No Headache Psych : No Anxiety/Panic, No Depression, No SI/HI/AH/VH, No Social Issues, Heme/Lymph: No Bruising, No Bleeding,No Lymphadenopathy Endocrine : No Polyuria, No Polydipsia, No Temperature Intolerance [facility] Past Medical History Medical History Substance abuse Alcohol abuse Depression Opioid use disorder Asthma Social History Social History Household Members: Family Household Members Other:: Mom Housing: House Do you presently have visiting nurse or other home services: No Unable to assess alcohol history related to: Unknown Alcohol intake: current Alcohol intake frequency: does not drink Alcohol type: hard liquor Patient Tobacco Use Status: Current everyday Tobacco user Tobacco use type: Cigarette Cigarette Packs Per Day: 1 Cigarettes Per Day: 20.0 Smoked in Last 30 Days: No e-Cigarette/Vaping Use: Currently Using Use of substances other than those prescribed or required for medical reasons: Yes Substance Use Type: Heroin Advance Directives: No Advance Directives Information Provided: Yes Do you have a plan to hurt others: No Plan service: No Current occupational status: employed Current occupation: right hand dominant Physical Exam ED Vital Signs: Vital Signs - 24 hr 12/15/23 23:32 12/16/23 03:14 12/16/23 03:14 Temperature 98.3 F 97.9 F Pulse Rate 86 99 Respiratory Rate 18 23 H Blood Pressure 128/67 128/61 Pulse Oximetry 94 91 L 91 L Oxygen Delivery Method Room Air Room Air Room Air 12/16/23 03:36 12/16/23 04:18 12/16/23 04:45 Temperature 97.7 F Pulse Rate 98 109 H 100 Respiratory Rate 18 16 18 Blood Pressure 114/63 Pulse Oximetry 93 Oxygen Delivery Method Room Air 12/16/23 04:58 12/16/23 06:11 Temperature 98.4 F Pulse Rate 103 H 102 H Respiratory Rate 20 16 Blood Pressure 126/68 Pulse Oximetry 91 L 93 Oxygen Delivery Method Room Air Room Air BMI result Body Mass Index 23.5 Const Other: Appearance: Alert. Oriented X3. No acute distress. Eyes: Pupils equal, round and reactive to light. ENT: Pharynx normal. Neck: Normal inspection. Neck supple. No lymph nodes noted. No crepitus CVS: Normal heart rate and rhythm. Pulses normal. Normal S1 and S2 Respiratory: Speaking in full sentences, bilateral wheezing, oxygen saturation 94% on room air. Abdomen: Soft and nontender. No rigidity. No distention. Skin: Skin warm and dry. Normal skin color. Normal skin turgor. Extremities: No lower extremity edema. No Lacerations. No Rash Neuro: Oriented X 3. No motor deficit. No sensory deficit. Moving all extremities. No slurred speech. CN 2 through 12 grossly intact Psych: calm, cooperative, normal affect Course Course Course Narrative: -patient's labs pending -patient receiving albuterol, IV Solu-Medrol and magnesium Medications Administered Discontinued Medications Generic Name Dose Route Start Last Admin Trade Name Freq PRN Reason Stop Dose Admin Albuterol Sulfate 7.5 mg/ 10 mg 12/16/23 03:28 12/16/23 03:35 Albuterol Sulfate 2.5 mg INHALE 12/16/23 03:29 10 mg ONCE ONE Administration Albuterol Sulfate 7.5 mg/ 0 mg 12/16/23 04:23 12/16/23 04:41 Albuterol/Ipratropium 3 ml INHALE 12/16/23 04:24 10 each ONCE ONE Administration Magnesium Sulfate 2 gm in 50 mls @ 25 mls/hr 12/16/23 03:08 12/16/23 05:40 Magnesium Sulfate/H2o IV 12/16/23 05:07 Infused ONCE ONE Infusion Methylprednisolone Sodium Succinate 125 mg 12/16/23 03:08 12/16/23 03:18 Methylprednisolone Sod Succ 125 Mg/2 Ml Vial IVPUSH 12/16/23 03:09 125 mg ONCE ONE Administration Medical Decision Making Medical Decision Making MDM Narrative: -my interpretation of chest x-ray: No pneumonia -my interpretation of serology: Negative for influenza RSV and -my interpretation of labs: Hematology and chemistry at baseline. -urine toxicology at baseline positive for opiates, fentanyl and THC -patient is awake, alert and oriented, ambulating in the ED., despite several nebulization treatments, steroids and magnesium, patient continues to be significantly wheezing. -discussed with the patient that admission is recommended, patient is agreeable to stay. -I discussed the patient with Dr. Henderson, patient to be admitted. -patient's oxygen saturation between 89-92%. Combination of asthma and narcotic use? But definitely still wheezing Differential Diagnosis Differential Diagnoses: The differential diagnosis associated with the presentation includes (Asthma, COPD, URI) Admission/Observation Consideration of admission/observation: Escalation of care including admission/observation considered Consult Healthcare Provider Management of the patient was discussed with: Hospitalist Lab Data MDM Lab Attestation statement: I reviewed the patient's lab results. 12/16/23 03:13 12/16/23 03:13 Labs: Lab Results 12/16/23 12/16/23 12/16/23 Range/Units 00:12 03:13 04:43 WBC 12.1 H (4.8-10.8) X10*3/uL RBC 5.44 (4.60-5.80) X10*6/uL Hgb 15.8 (14.0-18.0) g/dl Hct 44.9 (42.0-52.0) % MCV 82.5 (80.0-98.0) fL MCH 29.0 (27.0-33.0) pg MCHC 35.2 (31.0-36.0) g/dl RDW 12.4 (11.0-16.0) % Plt Count 407 H D (160-400) X10*3/uL MPV 10.5 (9.4-12.4) fL Immature Gran % (Auto) 0.3 (0.0-0.4) % Neut % (Auto) 67.8 (45-73) % Lymph % (Auto) 16.6 L (20-40) % [place] % (Auto) 10.0 (2-11) % Eos % (Auto) 4.9 H (0-4) % Baso % (Auto) 0.4 (0-2) % Lymph # (Auto) 2.0 (1.2-4.9) X10*3/uL [place] # (Auto) 1.2 (0.1-1.2) X10*3/uL Eos # (Auto) 0.6 H (0.0-0.4) X10*3/uL Baso # (Auto) 0.1 (0.0-0.2) X10*3/uL Abs Immat Gran (auto) 0.04 H (0.00-0.03) X10*3/uL Absolute Neuts (auto) 8.2 (2.0-8.3) x10*3/uL Absolute Nucleated RBC 0.000 (0.0-0.012) X10*3/uL Nucleated RBC % (auto) 0.0 (0.0-0.2) /100WBC Sodium 142 (135-145) mmol/L Potassium 4.1 (3.3-5.1) mmol/L Chloride 103 (96-108) mmol/L Carbon Dioxide 27 (22-29) mmol/L Anion Gap 16 (12-20) BUN 14 (9-16) mg/dL Creatinine 0.80 (0.5-1.4) mg/dL Estim Creat Clear Calc 135.0 Estimated GFR > 60 Random Glucose 90 (60-115) mg/dL Calcium 10.0 D (8.4-10.2) mg/dL Urine Color Dark Yellow Urine Appearance Clear Urine pH 5.5 (5.0-9.0) Ur Specific [place] >= 1.030 H (1.005-1.025) Urine Protein Negative (Neg-Trace) mg/dL Urine Glucose (UA) Negative (Negative) mg/dL Urine Ketones Trace (Negative) mg/dL Urine Blood Negative (Negative) Urine Nitrite Negative (Negative) Ur Leukocyte Esterase Trace H (Negative) Urine RBC 0-2 (0-2) /HPF Urine WBC 0-5 (0-5) /HPF Ur Squamous Epith Cells 3-5 (0-2) /HPF Urine Bacteria None Seen (None Seen) Hyaline Casts 0-2 (0-2) /LPF Urine Opiates Screen (Not Detect) Ur Buprenorphine Scrn (Not Detect) ng/mL Ur Oxycodone Screen (Not Detect) ng/mL Urine Methadone Screen (Not Detect) ng/mL Urine Fentanyl Screen (Not Detect) Ur Barbiturates Screen (Not Detect) Ur Phencyclidine Scrn (Not Detect) Ur Amphetamines Screen (Not Detect) U Benzodiazepines Scrn (Not Detect) Urine Cocaine Screen (Not Detect) U Marijuana (THC) Screen (Not Detect) Influenza Type A (PCR) NEGATIVE (Negative) Influenza Type B (PCR) NEGATIVE (Negative) RSV RNA Qual (PCR) NEGATIVE (Negative) SARS-CoV-2 RNA (RT-PCR) NEGATIVE (Negative) 12/16/23 Range/Units 04:47 WBC (4.8-10.8) X10*3/uL RBC (4.60-5.80) X10*6/uL Hgb (14.0-18.0) g/dl Hct (42.0-52.0) % MCV (80.0-98.0) fL MCH (27.0-33.0) pg MCHC (31.0-36.0) g/dl RDW (11.0-16.0) % Plt Count (160-400) X10*3/uL MPV (9.4-12.4) fL Immature Gran % (Auto) (0.0-0.4) % Neut % (Auto) (45-73) % Lymph % (Auto) (20-40) % [place] % (Auto) (2-11) % Eos % (Auto) (0-4) % Baso % (Auto) (0-2) % Lymph # (Auto) (1.2-4.9) X10*3/uL [place] # (Auto) (0.1-1.2) X10*3/uL Eos # (Auto) (0.0-0.4) X10*3/uL Baso # (Auto) (0.0-0.2) X10*3/uL Abs Immat Gran (auto) (0.00-0.03) X10*3/uL Absolute Neuts (auto) (2.0-8.3) x10*3/uL Absolute Nucleated RBC (0.0-0.012) X10*3/uL Nucleated RBC % (auto) (0.0-0.2) /100WBC Sodium (135-145) mmol/L Potassium (3.3-5.1) mmol/L Chloride (96-108) mmol/L Carbon Dioxide (22-29) mmol/L Anion Gap (12-20) BUN (9-16) mg/dL Creatinine (0.5-1.4) mg/dL Estim Creat Clear Calc Estimated GFR Random Glucose (60-115) mg/dL Calcium (8.4-10.2) mg/dL Urine Color Urine Appearance Urine pH (5.0-9.0) Ur Specific [place] (1.005-1.025) Urine Protein (Neg-Trace) mg/dL Urine Glucose (UA) (Negative) mg/dL Urine Ketones (Negative) mg/dL Urine Blood (Negative) Urine Nitrite (Negative) Ur Leukocyte Esterase (Negative) Urine RBC (0-2) /HPF Urine WBC (0-5) /HPF Ur Squamous Epith Cells (0-2) /HPF Urine Bacteria (None Seen) Hyaline Casts (0-2) /LPF Urine Opiates Screen POSITIVE H (Not Detect) Ur Buprenorphine Scrn Not Detected (Not Detect) ng/mL Ur Oxycodone Screen Not Detected (Not Detect) ng/mL Urine Methadone Screen Not Detected (Not Detect) ng/mL Urine Fentanyl Screen POSITIVE H (Not Detect) Ur Barbiturates Screen Not Detected (Not Detect) Ur Phencyclidine Scrn Not Detected (Not Detect) Ur Amphetamines Screen Not Detected (Not Detect) U Benzodiazepines Scrn Not Detected (Not Detect) Urine Cocaine Screen Not Detected (Not Detect) U Marijuana (THC) Screen POSITIVE H (Not Detect) Influenza Type A (PCR) (Negative) Influenza Type B (PCR) (Negative) RSV RNA Qual (PCR) (Negative) SARS-CoV-2 RNA (RT-PCR) (Negative) Independent Interpretation I performed an independent interpretation of an: Plain X-Ray Radiology Impression Discussion of test interpretation with radiology: I have reviewed the radiologist's reading. Radiologist Impression: INDINGS: No significant abnormality is noted involving the heart, lungs, mediastinum, bony thorax or soft tissues. XR/XR chest 2V IMPRESSION: Unremarkable examination. Discharge Plan Discharge Clinical Impression: Asthma with acute exacerbation, Polysubstance abuse Patient Disposition: Admitted As Inpatient Prescriptions: No Action albuterol sulfate [Ventolin HFA] 90 mcg/actuation Hfa Aerosol Inhaler 1 puff inhalation RQ4H PRN (Reason: ASTHMA) Qty: 8.5 0RF fluticasone furoate-vilanterol [Breo Ellipta] 100-25 mcg/dose Blister With Device 1 ea inhalation RDAILY Qty: 1 0RF albuterol sulfate 90 mcg/actuation HFA aerosol inhaler 2 puff inhalation Q4-6H PRN (Reason: shortness of breath or wheezing) Qty: 6.7 3RF Rx Instructions: May dispense medication equivalent accepted by patient's insurance albuterol sulfate 2.5 mg /3 mL (0.083 %) solution for nebulization 2.5 mg inhalation Q4-6H PRN (Reason: shortness of breath or wheezing) Qty: 180 2RF Rx Instructions: May dispense medication equivalent accepted by patient's insurance prednisone 20 mg tablet 40 mg PO DAILY 5 Days Qty: 10 0RF doxycycline monohydrate 100 mg capsule 100 mg PO BID 10 Days Qty: 20 0RF prednisone 20 mg tablet 20 mg PO BID Qty: 10 0RF albuterol sulfate 90 mcg/actuation HFA aerosol inhaler 1 inh inhalation QID PRN (Reason: shortness of breath or wheezing) Qty: 8.5 0RF azithromycin [Zithromax Z-Gustavo] 250 mg tablet See Rx Instructions .ROUTE .COMPLEX Qty: 6 0RF Rx Instructions: For 250 mg dose pack: take 500 mg today (day 1), then 250 mg for 4 days (days 2-5) cyclobenzaprine 10 mg tablet 10 mg PO TID PRN (Reason: muscle spasm) Qty: 14 0RF ibuprofen 600 mg tablet 600 mg PO Q8H PRN (Reason: pain) Qty: 14 0RF lidocaine 5 % adhesive patch,medicated 1 patch topical DAILY Qty: 15 0RF Rx Instructions: leave on most painful area for up to 12 hrs prednisone 20 mg tablet 60 mg PO DAILY 7 Days Qty: 21 0RF naproxen 500 mg tablet 500 mg PO BID PRN (Reason: pain) Qty: 20 0RF albuterol sulfate [ProAir HFA] 90 mcg/actuation HFA aerosol inhaler 2 puff inhalation Q4-6H PRN (Reason: shortness of breath or wheezing) Qty: 8.5 0RF albuterol sulfate [ProAir HFA] 90 mcg/actuation HFA aerosol inhaler 2 puff inhalation Q4-6H PRN (Reason: shortness of breath or wheezing) Qty: 8.5 0RF prednisone 20 mg tablet 40 mg PO DAILY Qty: 10 0RF doxycycline hyclate 100 mg capsule 100 mg PO BID 7 Days Qty: 14 0RF metronidazole 500 mg tablet 500 mg PO BID 7 Days Qty: 14 0RF levofloxacin 500 mg tablet 500 mg PO DAILY Qty: 9 0RF albuterol sulfate 90 mcg/actuation HFA aerosol inhaler 2 inh inhalation Q20M PRN (Reason: shortness of breath or wheezing) Qty: 8.5 0RF prednisone 20 mg tablet 40 mg PO DAILY 5 Days Qty: 10 0RF naloxone [Narcan] 4 mg/actuation spray,non-aerosol 4 mg intranasal Q2M PRN (Reason: opioid overdose) Qty: 2 0RF Rx Instructions: spray 1 dose into ONE nostril; alternate nostrils w each dose until help arrives sertraline 25 mg tablet 50 mg PO DAILY Qty: 30 0RF (DME) Reset-O Digital Brandy (OUD) Misc See Rx Instructions .MEDSUPPLY Qty: 1 3RF Rx Instructions: As directed (3-4 times a week) 84 days buprenorphine-naloxone [Suboxone] 12-3 mg film 1 film sublingual Q24H Qty: 7 0RF Print Language: Monegasque
[2023-12-16 03:17] LABS: MANUAL DIFF FLAG NO
[2023-12-16] MEDS: Magnesium Sulfate/H2O 2 GM/50 ML PIGGYBACK IV (03:18)
[2023-12-16] MEDS: methylPREDNISolone Sod Succ 125 MG/2 ML VIAL IVPUSH (03:18)
[2023-12-16 03:27] LABS: Basophils Absolute Auto 0.1 X10*3/uL (0.0-0.2); Basophils Percent Auto 0.4 % (0-2); Eosinophils Absolute Auto 0.6 X10*3/uL (0.0-0.4); Eosinophils Percent Auto 4.9 % (0-4); Hematocrit 44.9 % (42.0-52.0); Hemoglobin 15.8 g/dl (14.0-18.0); Imm Gran Abs Auto 0.04 X10*3/uL (0.00-0.03); Imm Gran Pct Auto 0.3 % (0.0-0.4); Lymphocytes Percent Auto 16.6 % (20-40); Mean Corpuscular HGB Conc 35.2 g/dl (31.0-36.0); Mean Corpuscular Volume 82.5 fL (80.0-98.0); Mean Platelet Volume 10.5 fL (9.4-12.4); Monocytes Absolute Auto 1.2 X10*3/uL (0.1-1.2); Neutrophils Absolute Auto 8.2 x10*3/uL (2.0-8.3); Neutrophils Percent Auto 67.8 % (45-73); Platelet Count 407 X10*3/uL (160-400); Red Blood Count 5.44 X10*6/uL (4.60-5.80); Red Cell Distribution Width 12.4 % (11.0-16.0); White Blood Count 12.1 X10*3/uL (4.8-10.8)
[2023-12-16] MEDS: Albuterol Sulfate 7.5 MG, Albuterol Sulfate (0.083%) 2.5 MG 10 MG INHALE (03:35)
[2023-12-16 03:46] LABS: Anion Gap 16 (12-20); Blood Urea Nitrogen 14 mg/dL (9-16); Carbon Dioxide 27 mmol/L (22-29); Chloride 103 mmol/L (96-108); Estimated Glomerular Filt Rate > 60; Glucose Random 90 mg/dL (60-115); Potassium 4.1 mmol/L (3.3-5.1); Sodium 142 mmol/L (135-145)
--- NOTE | 2023-12-16 03:48 | PC.NURSE ---
pt receiving breathing treatment, satin g96-99% on room air at this time.
--- NOTE | 2023-12-16 04:23 | PC.NURSE ---
aware of pt vital signs.
[2023-12-16] MEDS: Albuterol Sulfate 7.5 MG, Albuterol/Iprat 2.5/0.5MG 3 ML 3 ML INHALE (04:41)
[2023-12-16 04:53] LABS: Appearance Urine Clear; Color Urine Dark Yellow; Glucose Urine UA Negative (Negative); Leukocyte Esterase Urine Trace (Negative); Nitrite Urine Negative (Negative); PH 5.5 (5.0-9.0); Specific Gravity - Urine >= 1.030 (1.005-1.025); UMIC TRIGGER UACC YES; Urine Blood Negative (Negative); Urine Ketones Trace mg/dL (Negative); Urine Protein Negative (Neg-Trace)
--- NOTE | 2023-12-16 04:57 | PC.NURSE ---
pt ambulating to bathroom with steady gait, denies SOB and chest pain.
[2023-12-16 04:58] LABS: Bacteria Urine None Seen (None Seen); Hyaline Casts Urine 0-2 /LPF (0-2); RBC Urine 0-2 /HPF (0-2); WBC Urine 0-5 /HPF (0-5)
[2023-12-16 05:04] LABS: Amphetamine Screen Urine Not Detected (Not Detect); Barbiturates, Urine Not Detected (Not Detect); Benzodiazepines Screen Urine Not Detected (Not Detect); Buprenorphine Scr Not Detected (Not Detect); Cannabinoid Screen Urine POSITIVE (Not Detect); Cocaine Screen Urine Not Detected (Not Detect); Fentanyl, urine POSITIVE (Not Detect); Methadone Screen, Urine Not Detected (Not Detect); Opiate Screen Urine POSITIVE (Not Detect); Oxycodone Screen Urine Not Detected (Not Detect); Phencyclidine Screen Urine Not Detected (Not Detect)
--- NOTE | 2023-12-16 06:45 | PC.NURSE ---
pt placed on 2L nasal cannula per provider order.
[2023-12-16] MEDS: Albuterol Sulfate 90 MCG 8 GM INHALER 2 PUFF INHALE (08:12)
== END 2023-12-16 08:58 | disposition home or self-care (01) ==
PROVIDERS: Emergency Provider Emergency Medicine
DX: J45.901 Unspecified asthma with (acute) exacerbation (principal); F19.10 Other psychoactive substance abuse, uncomplicated
CPT/HCPCS: 0241U; 36415; 71046; 80048; 80307; 81001; 85025; 94640; 96365; 96366; 96375; 99285; J2919; J3475

== ENCOUNTER 2023-12-26 21:46 | Emergency (ER) | payer OTHER, SELFPAY ==
--- NOTE | 2023-12-26 | ECG_ITS ---
Test Reason : JIMENEJ Blood Pressure : / mmHG Vent. Rate : 100 BPM Atrial Rate : 100 BPM P-R Int : 164 ms QRS Dur : 090 ms QT Int : 342 ms P-R-T Axes : 073 091 041 degrees QTc Int : 441 ms Normal sinus rhythm Possible Left atrial enlargement Rightward axis Borderline ECG When compared with ECG of 24-JUL-2023 20:45, No significant change was found Referred By: Generic ED Physician Electronically Signed By:Ang Greco
--- NOTE | ~2023-12-26 | XR_ITS ---
EXAMINATION: XR HAND, RIGHT CLINICAL INFORMATION: Trauma. Pain third through fifth metacarpals. COMPARISON: Radiograph right hand 03/22/2022. TECHNIQUE: PA, lateral, and oblique views of the right hand. FINDINGS: The bones and soft tissues are normal. No fracture. Alignment is anatomic. Joint spaces are maintained. No erosions or soft tissue calcifications. XR/XR hand RT 2V IMPRESSION: Normal right hand.
[2023-12-26 21:56] VITALS: BMI 23.0
--- NOTE | 2023-12-26 22:01 | PC.NURSE ---
R. hand cleaned with sterile water. bleeding controlled. R. middle and ring finger knuckles swollen. pt reports painful, unable to fully form fist. [employer] aware.
[2023-12-26 22:07] VITALS: BP 143/85; PULSE 101; RESP 18; TEMP 36.6; O2SAT 95
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
[2023-12-27 00:07] VITALS: RESP 17
[2023-12-27 01:15] VITALS: BP 143/85; PULSE 95; RESP 17; TEMP 36.6; O2SAT 96
== END 2023-12-27 01:15 | disposition home or self-care (01) ==
PROVIDERS: Emergency Provider Emergency Medicine
DX: F19.90 Other psychoactive substance use, unspecified, uncomplicated (principal); S60.511A Abrasion of right hand, initial encounter; W22.09XA Striking against other stationary object, initial encounter; Y93.9 Activity, unspecified; Y92.89 Other specified places as the place of occurrence of the external cause; Y99.9 Unspecified external cause status
CPT/HCPCS: 73120; 93005; 99283

== ENCOUNTER → 2023-12-26 21:55 | Outpatient (BNV) | payer OTHER, SELFPAY | PROVIDERS: Emergency Provider Emergency Medicine; Visit Provider Internal Medicine Cardiovascular Disease | DX: R41.82 Altered mental status, unspecified (principal) | CPT/HCPCS: 93010 ==

== ENCOUNTER 2024-01-18 18:37 | Emergency (ER) | payer OTHER, SELFPAY ==
--- NOTE | ~2024-01-18 | XR_ITS ---
EXAMINATION: XR CHEST CLINICAL INFORMATION: Shortness of breath. Cough. COMPARISON: Chest radiograph dated 12/15/2023. TECHNIQUE: 2 views of the chest were obtained. FINDINGS: Heart size is normal. There is no consolidation within either lung. There is no pleural effusion. No pneumothorax. No acute osseous abnormality. XR/XR chest 2V IMPRESSION: Stable appearance of the heart and lungs. No active disease.
[2024-01-18 18:54] VITALS: BP 133/70; BP 139/50; PULSE 86; PULSE 92; RESP 16; TEMP 37; O2SAT 100; O2SAT 94; BMI 23.0
--- NOTE | 2024-01-18 19:01 | ED_ITS ---
HPI - SOB/Dyspnea General Chief Complaint: Asthma Stated Complaint: SOB,PIN WHEN BREATHING Time Seen by Provider: 01/18/24 18:42 Source: patient and EMS Mode of arrival: EMS Limitations: no limitations History of Present Illness HPI Narrative: Patient is a 28-year-old male who presents emergency department via EMS for evaluation of shortness of breath difficulty breathing with onset this morning. He reports that he ran out of his inhalers and nebulizers approximately 1 week ago. When asked whether he went to the pharmacy or had any refills he states ?I do not know how to get refills?. He reports a chronic cough, otherwise denies any recent URI symptoms fevers chills or known sick contacts. He reports that his current symptoms feel most like his previous asthma exacerbations. On EMS arrival he was noted to be shortness of breath tripoding with significant wheezing, he received 1 DuoNeb nebulizer pre-hospital. He reports mild diffuse anterior chest pain during episodes of coughing/deep breathing only. He denies any dizziness, lightheadedness, nausea, vomiting, abdominal pain, numbness or tingling of the extremities Related Data Previous Rx's ?Medication ?Instructions ?Recorded fluticasone furoate 100 1 ea inhalation RDAILY #1 ea 07/09/22 mcg-vilanterol 25 mcg/dose inhalation powder (Breo Ellipta) sertraline 25 mg tablet 50 mg (2 x 25 mg) PO DAILY #30 tabs 09/23/22 [employer] - [employer] therapeutics, OUD (Reset-O #1 ea 09/30/22 Digital Brandy (OUD)) buprenorphine 12 mg-naloxone 3 mg 1 film sublingual Q24H #7 ea 10/07/22 sublingual film (Suboxone) albuterol sulfate 2.5 mg/3 mL 2.5 mg (3 mL) inhalation Q4-6H PRN 10/23/22 (0.083 %) solution for nebulization shortness of breath or wheezing #180 mL albuterol sulfate 90 mcg/actuation 2 puff inhalation Q4-6H PRN 10/23/22 aerosol inhaler shortness of breath or wheezing #6.7 grams cyclobenzaprine 10 mg tablet 10 mg PO TID PRN muscle spasm #14 04/01/23 tabs ibuprofen 600 mg tablet 600 mg PO Q8H PRN pain #14 tabs 04/01/23 lidocaine 5 % topical patch 1 patch topical DAILY #15 ea 04/01/23 naproxen 500 mg tablet 500 mg PO BID PRN pain #20 tabs 04/29/23 albuterol sulfate 90 mcg/actuation 2 inh inhalation Q20M PRN 12/04/23 aerosol inhaler shortness of breath or wheezing #8.5 grams prednisone 20 mg tablet 40 mg (2 x 20 mg) PO DAILY 5 days 12/04/23 #10 tabs albuterol sulfate 90 mcg/actuation 2 puff inhalation Q4-6H PRN 12/16/23 aerosol inhaler (Ventolin HFA) shortness of breath or wheezing #8.5 grams prednisone 50 mg tablet 50 mg PO DAILY 4 days #4 tabs 12/16/23 albuterol sulfate 90 mcg/actuation 2 inh inhalation Q4-6H PRN 01/18/24 breath activated powder inhaler shortness of breath or wheezing #1 ea prednisone 20 mg tablet 40 mg (2 x 20 mg) PO DAILY 4 days 01/18/24 #8 tabs Allergies Allergy/AdvReac Type Severity Reaction Status Date / Time seafood Allergy Severe Anaphylaxis Verified 01/18/24 18:58 Penicillins [PENICILLINS] Allergy Intermediate RASH Verified 01/18/24 18:58 Review of Systems 2 Review of Systems: Yes all other systems are reviewed and are negative PMFSH Past Medical History Attestation statement: The following information was validated with the patient. Source: old records reviewed Medical History Substance abuse Alcohol abuse Depression Opioid use disorder Asthma Social History Social History Household Members: Family Household Members Other:: Mom Housing: House Do you presently have visiting nurse or other home services: No Unable to assess alcohol history related to: Unknown Alcohol intake: current Alcohol intake frequency: does not drink Alcohol type: hard liquor Patient Tobacco Use Status: Current everyday Tobacco user Tobacco use type: Cigarette Cigarette Packs Per Day: 1 Cigarettes Per Day: 20.0 e-Cigarette/Vaping Use: Currently Using Substance Use Type: Heroin Advance Directives: No Advance Directives Information Provided: No service: No Current occupational status: employed Current occupation: right hand dominant Physical Exam 2 Vital Signs: Vital Signs: Last Vital Signs Temp 98.9 F 01/18/24 23:32 Pulse 67 01/18/24 23:32 Resp 17 01/18/24 23:32 BP 114/67 01/18/24 23:32 Pulse Ox 98 01/18/24 23:32 O2 Del Method Room Air 01/18/24 23:32 BMI result Body Mass Index 23.0 Appearance: Alert.?Oriented to person, place and time. No acute distress.?Normal affect. Eyes: Pupils equal, round and reactive to light.? ENT: Pharynx normal.?? Neck: Normal inspection.? Neck supple.?? CVS: Heart sounds normal. Normal heart rate and rhythm.? Pulses normal.?? Respiratory: Increased work of breathing no retractions or tripoding at this time. Lung sounds with rhonchi and expiratory wheezing diffusely, prolonged expiratory phase.? Abdomen: Soft and non-tender. Normoactive bowel sounds. No pulsatile mass.?? Skin: Skin warm and dry.? Normal skin color.? Extremities: No lower extremity edema.? Neuro: Moves all extremities spontaneously. Sensation intact bilaterally. Ambulates with normal steady gait. Medications Administered Discontinued Medications Generic Name Dose Route Start Last Admin Trade Name Freq PRN Reason Stop Dose Admin Albuterol Sulfate 7.5 mg/ 10 mg 01/18/24 19:12 01/18/24 19:19 Albuterol Sulfate 2.5 mg INHALE 01/18/24 19:13 10 mg ONCE ONE Administration Albuterol Sulfate 2 puff 01/18/24 23:06 01/18/24 23:21 Albuterol Sulfate 90 Mcg 8 Gm Inhaler INHALE 01/18/24 23:07 2 puff ONCE ONE Administration Methylprednisolone Sodium Succinate 125 mg 01/18/24 18:56 01/18/24 19:34 Methylprednisolone Sod Succ 125 Mg/2 Ml Vial IVPUSH 01/18/24 18:57 125 mg ONCE ONE Administration Medical Decision Making Medical Decision Making MDM Narrative: Patient is a 28-year-old male with past medical history of opioid use disorder and asthma presenting to emergency department for evaluation of shortness of breath and concern for asthma exacerbation. On exam has a slight increased work of breathing, which appears improved when compared to prescription from EMS upon their arrival. He is currently receiving DuoNeb nebulizer, mildly tachypneic, he is without fever or tachycardia. Patient receive Solu-Medrol IV, and will require additional albuterol nebulizer. In addition will obtain viral panel testing, CXR to exclude infiltrate/consolidation. Should his symptoms improve and he is able to ambulate without distress or hypoxia, will consider discharge home with oral corticosteroids and prescription for inhaler/nebulizer solution versus inpatient admission should his symptoms not improve. Symptoms improved, requesting discharge home at this time feel that he is stable. Ambulatory O2 trial without hypoxia tachypnea or respiratory distress. Discussed strict return precautions. All questions answered. Differential Diagnosis Differential Diagnoses: The differential diagnosis associated with the presentation includes (See narrative above) Admission/Observation Consideration of admission/observation: Escalation of care including admission/observation considered (See narrative above) Lab Data MDM Lab Attestation statement: I reviewed the patient's lab results. CBC without leukocytosis, mild normocytic anemia that does not meet transfusion criteria, no thrombocytosis or thrombocytopenia. No electrolyte derangement. No YOLIE. LFTs within normal range. Viral panel is negative. 01/18/24 19:26 01/18/24 19:26 Labs: Lab Results 01/18/24 Range/Units 19:26 WBC 9.6 (4.8-10.8) X10*3/uL RBC 4.65 (4.60-5.80) X10*6/uL Hgb 13.5 L (14.0-18.0) g/dl Hct 38.1 L (42.0-52.0) % MCV 81.9 (80.0-98.0) fL MCH 29.0 (27.0-33.0) pg MCHC 35.4 (31.0-36.0) g/dl RDW 12.3 (11.0-16.0) % Plt Count 272 D (160-400) X10*3/uL MPV 10.0 (9.4-12.4) fL Immature Gran % (Auto) 0.3 (0.0-0.4) % Neut % (Auto) 69.4 (45-73) % Lymph % (Auto) 15.1 L (20-40) % Kendall % (Auto) 10.5 (2-11) % Eos % (Auto) 4.3 H (0-4) % Baso % (Auto) 0.4 (0-2) % Lymph # (Auto) 1.5 (1.2-4.9) X10*3/uL Kendall # (Auto) 1.0 (0.1-1.2) X10*3/uL Eos # (Auto) 0.4 (0.0-0.4) X10*3/uL Baso # (Auto) 0.0 (0.0-0.2) X10*3/uL Abs Immat Gran (auto) 0.03 (0.00-0.03) X10*3/uL Absolute Neuts (auto) 6.7 (2.0-8.3) x10*3/uL Absolute Nucleated RBC 0.000 (0.0-0.012) X10*3/uL Nucleated RBC % (auto) 0.0 (0.0-0.2) /100WBC Sodium 138 (135-145) mmol/L Potassium 3.3 (3.3-5.1) mmol/L Chloride 103 (96-108) mmol/L Carbon Dioxide 26 (22-29) mmol/L Anion Gap 12 (12-20) BUN 13 (9-16) mg/dL Creatinine 0.68 (0.5-1.4) mg/dL Estim Creat Clear Calc 163.0 Estimated GFR > 60 Random Glucose 122 H (60-115) mg/dL Calcium 9.0 D (8.4-10.2) mg/dL Magnesium 2.1 (1.6-2.6) mg/dL Total Bilirubin 0.6 (0.0-1.0) mg/dL AST 17 (5-37) U/L ALT 10 (0-40) U/L Alkaline Phosphatase 99 (39-117) U/L Total Protein 6.5 (6.5-8.0) g/dL Albumin 3.8 (3.5-5.0) g/dL Influenza Type A (PCR) NEGATIVE (Negative) Influenza Type B (PCR) NEGATIVE (Negative) RSV RNA Qual (PCR) NEGATIVE (Negative) SARS-CoV-2 RNA (RT-PCR) NEGATIVE (Negative) Independent Interpretation I performed an independent interpretation of an: Plain X-Ray (No consolidation or info) Radiology Impression Discussion of test interpretation with radiology: I have reviewed the radiologist's reading. Radiologist Impression: XR/XR chest 2V IMPRESSION: Stable appearance of the heart and lungs. No active disease. Independent Historian Clinical information obtained from an independent historian. History obtained from or confirmed by: EMS External Record Review External record reviewed: Outpatient record Prescription Management I considered prescription management with: Other (See narrative above) Chronic Conditions Patient?s care impacted by: Other (Asthma) Discharge Plan Discharge Clinical Impression: Asthma with acute exacerbation Patient Disposition: Home, Self-Care Instructions: Asthma (ED) Prescriptions: New albuterol sulfate 90 mcg/actuation aerosol powdr breath activated 2 inh inhalation Q4-6H PRN (Reason: shortness of breath or wheezing) Qty: 1 0RF prednisone 20 mg tablet 40 mg PO DAILY 4 Days Qty: 8 0RF No Action fluticasone furoate-vilanterol [Breo Ellipta] 100-25 mcg/dose Blister With Device 1 ea inhalation RDAILY Qty: 1 0RF albuterol sulfate 90 mcg/actuation HFA aerosol inhaler 2 puff inhalation Q4-6H PRN (Reason: shortness of breath or wheezing) Qty: 6.7 3RF Rx Instructions: May dispense medication equivalent accepted by patient's insurance albuterol sulfate 2.5 mg /3 mL (0.083 %) solution for nebulization 2.5 mg inhalation Q4-6H PRN (Reason: shortness of breath or wheezing) Qty: 180 2RF Rx Instructions: May dispense medication equivalent accepted by patient's insurance cyclobenzaprine 10 mg tablet 10 mg PO TID PRN (Reason: muscle spasm) Qty: 14 0RF ibuprofen 600 mg tablet 600 mg PO Q8H PRN (Reason: pain) Qty: 14 0RF lidocaine 5 % adhesive patch,medicated 1 patch topical DAILY Qty: 15 0RF Rx Instructions: leave on most painful area for up to 12 hrs naproxen 500 mg tablet 500 mg PO BID PRN (Reason: pain) Qty: 20 0RF albuterol sulfate 90 mcg/actuation HFA aerosol inhaler 2 inh inhalation Q20M PRN (Reason: shortness of breath or wheezing) Qty: 8.5 0RF prednisone 20 mg tablet 40 mg PO DAILY 5 Days Qty: 10 0RF albuterol sulfate [Ventolin HFA] 90 mcg/actuation HFA aerosol inhaler 2 puff inhalation Q4-6H PRN (Reason: shortness of breath or wheezing) Qty: 8.5 1RF prednisone 50 mg tablet 50 mg PO DAILY 4 Days Qty: 4 0RF sertraline 25 mg tablet 50 mg PO DAILY Qty: 30 0RF (DME) Reset-O Digital Brandy (OUD) Misc See Rx Instructions .MEDSUPPLY Qty: 1 3RF Rx Instructions: As directed (3-4 times a week) 84 days buprenorphine-naloxone [Suboxone] 12-3 mg film 1 film sublingual Q24H Qty: 7 0RF Referrals: Physician,Unknown J [Primary Care Provider] - Interventions: ED Discharge Assessment Last Done: 01/18/24 23:32 Discharge Date/Time: 01/18/24 23:32 Print Language: Citizen [place]
[2024-01-18] MEDS: Albuterol Sulfate 7.5 MG, Albuterol Sulfate (0.083%) 2.5 MG 10 MG INHALE (19:19)
[2024-01-18 19:22] VITALS: PULSE 75; RESP 18
[2024-01-18 19:30] LABS: MANUAL DIFF FLAG NO
[2024-01-18 19:31] LABS: Basophils Percent Auto 0.4 % (0-2); Eosinophils Absolute Auto 0.4 X10*3/uL (0.0-0.4); Eosinophils Percent Auto 4.3 % (0-4); Hematocrit 38.1 % (42.0-52.0); Hemoglobin 13.5 g/dl (14.0-18.0); Imm Gran Abs Auto 0.03 X10*3/uL (0.00-0.03); Imm Gran Pct Auto 0.3 % (0.0-0.4); Lymphocytes Absolute Auto 1.5 X10*3/uL (1.2-4.9); Lymphocytes Percent Auto 15.1 % (20-40); Mean Corpuscular HGB Conc 35.4 g/dl (31.0-36.0); Mean Corpuscular Volume 81.9 fL (80.0-98.0); Monocytes Percent Auto 10.5 % (2-11); Neutrophils Absolute Auto 6.7 x10*3/uL (2.0-8.3); Neutrophils Percent Auto 69.4 % (45-73); Platelet Count 272 X10*3/uL (160-400); Red Blood Count 4.65 X10*6/uL (4.60-5.80); Red Cell Distribution Width 12.3 % (11.0-16.0); White Blood Count 9.6 X10*3/uL (4.8-10.8)
[2024-01-18] MEDS: methylPREDNISolone Sod Succ 125 MG/2 ML VIAL IVPUSH (19:34)
[2024-01-18 19:44] LABS: Alanine Aminotransferase 10 U/L (0-40); Albumin Level 3.8 g/dL (3.5-5.0); Alkaline Phosphatase 99 U/L (39-117); Anion Gap 12 (12-20); Aspartate Amino Transferase 17 U/L (5-37); Bilirubin Total 0.6 mg/dL (0.0-1.0); Blood Urea Nitrogen 13 mg/dL (9-16); Carbon Dioxide 26 mmol/L (22-29); Chloride 103 mmol/L (96-108); Estimated Glomerular Filt Rate > 60; Glucose Random 122 mg/dL (60-115); Magnesium 2.1 mg/dL (1.6-2.6); Potassium 3.3 mmol/L (3.3-5.1); Sodium 138 mmol/L (135-145); Total Protein 6.5 g/dL (6.5-8.0)
[2024-01-18 20:07] LABS: Influenza A PCR NEGATIVE (Negative); Influenza B PCR NEGATIVE (Negative); Resp Syncy Virus RNA Qual PCR NEGATIVE (Negative); SARS COV2 PCR INHOUSE NEGATIVE (Negative)
--- NOTE | 2024-01-18 22:13 | PC.NURSE ---
pt is off of his oxygen and eating chips, states he has mild sob at this time. denies pain.
[2024-01-18 23:21] VITALS: PULSE 75; RESP 18; O2SAT 96
[2024-01-18] MEDS: Albuterol Sulfate 90 MCG 8 GM INHALER 2 PUFF INHALE (23:21)
[2024-01-18 23:31] VITALS: BP 114/67; PULSE 67; RESP 17; TEMP 37.2; O2SAT 98
[2024-01-18 23:32] VITALS: BP 114/67; PULSE 67; RESP 17; TEMP 37.2; O2SAT 98
== END 2024-01-18 23:32 | disposition home or self-care (01) ==
PROVIDERS: Nurse Practitioner Family; Emergency Provider Emergency Medicine
DX: J45.901 Unspecified asthma with (acute) exacerbation (principal); R06.02 Shortness of breath; R05.9 Cough, unspecified; F11.20 Opioid dependence, uncomplicated; F17.210 Nicotine dependence, cigarettes, uncomplicated; Z03.818 Encounter for observation for suspected exposure to other biological agents ruled out; Z79.899 Other long term (current) drug therapy
CPT/HCPCS: 0241U; 36415; 71046; 80053; 83735; 85025; 94640; 96374; 99284; J2919

== ENCOUNTER 2024-06-11 23:30 | Emergency (ER) | payer OTHER, SELFPAY ==
--- NOTE | ~2024-06-11 | XR_ITS ---
EXAMINATION: XR CHEST CLINICAL INFORMATION: Cough. COMPARISON: January 18, 2024. TECHNIQUE: 2 views of the chest were obtained. FINDINGS: No significant abnormality is noted involving the heart, lungs, mediastinum, bony thorax or soft tissues. XR/XR chest 2V IMPRESSION: Unremarkable examination. Electronically signed by: Anand Green MD 06/12/2024 02:34 AM EDT
[2024-06-11 23:40] VITALS: BP 129/78; PULSE 89; RESP 20; TEMP 36.3; O2SAT 96; BMI 25.4
[2024-06-12 00:55] VITALS: O2SAT 98
--- NOTE | 2024-06-12 00:56 | PC.NURSE ---
pt ran out of his inhaler 2 days ago. pt has been using his grandfather inhaler alberteral
[2024-06-12 01:01] VITALS: BP 118/88; PULSE 71; RESP 17; TEMP 36.6; O2SAT 98
[2024-06-12 01:47] LABS: IDNOW Serial# 08D9AD1C; Strep A Nucleic Acid Negative (Negative)
[2024-06-12 02:12] LABS: Influenza A PCR NEGATIVE (Negative); Influenza B PCR NEGATIVE (Negative); Resp Syncy Virus RNA Qual PCR NEGATIVE (Negative); SARS COV2 PCR INHOUSE NEGATIVE (Negative)
[2024-06-12 02:53] VITALS: BP 132/76; PULSE 88; RESP 15; TEMP 36.4; O2SAT 93
--- NOTE | 2024-06-12 02:58 | ED_ITS ---
HPI - SOB/Dyspnea General Chief Complaint: Upper Respiratory Symptoms Stated Complaint: asthma Time Seen by Provider: 06/12/24 02:31 Source: patient Mode of arrival: ambulatory Limitations: no limitations History of Present Illness ED Provider: nasir HENRY Narrative: Patient With history of asthma ran out of his inhaler been wheezing coughing for last few days getting worse no fever no chills Related Data Previous Rx's ?Medication ?Instructions ?Recorded fluticasone furoate 100 1 ea inhalation RDAILY #1 ea 07/09/22 mcg-vilanterol 25 mcg/dose inhalation powder (Breo Ellipta) sertraline 25 mg tablet 50 mg (2 x 25 mg) PO DAILY #30 tabs 09/23/22 [employer], OUD (Reset-O #1 ea 09/30/22 Digital Brandy (OUD)) buprenorphine 12 mg-naloxone 3 mg 1 film sublingual Q24H #7 ea 10/07/22 sublingual film (Suboxone) albuterol sulfate 2.5 mg/3 mL 2.5 mg (3 mL) inhalation Q4-6H PRN 10/23/22 (0.083 %) solution for nebulization shortness of breath or wheezing #180 mL albuterol sulfate 90 mcg/actuation 2 puff inhalation Q4-6H PRN 10/23/22 aerosol inhaler shortness of breath or wheezing #6.7 grams cyclobenzaprine 10 mg tablet 10 mg PO TID PRN muscle spasm #14 04/01/23 tabs ibuprofen 600 mg tablet 600 mg PO Q8H PRN pain #14 tabs 04/01/23 lidocaine 5 % topical patch 1 patch topical DAILY #15 ea 04/01/23 naproxen 500 mg tablet 500 mg PO BID PRN pain #20 tabs 04/29/23 albuterol sulfate 90 mcg/actuation 2 inh inhalation Q20M PRN 12/04/23 aerosol inhaler shortness of breath or wheezing #8.5 grams prednisone 20 mg tablet 40 mg (2 x 20 mg) PO DAILY 5 days 12/04/23 #10 tabs albuterol sulfate 90 mcg/actuation 2 puff inhalation Q4-6H PRN 12/16/23 aerosol inhaler (Ventolin HFA) shortness of breath or wheezing #8.5 grams prednisone 50 mg tablet 50 mg PO DAILY 4 days #4 tabs 12/16/23 albuterol sulfate 90 mcg/actuation 2 inh inhalation Q4-6H PRN 01/18/24 breath activated powder inhaler shortness of breath or wheezing #1 ea prednisone 20 mg tablet 40 mg (2 x 20 mg) PO DAILY 4 days 01/18/24 #8 tabs albuterol sulfate 90 mcg/actuation 2 puff inhalation Q6H PRN 06/12/24 aerosol inhaler shortness of breath or wheezing #8.5 grams prednisone 20 mg tablet 40 mg (2 x 20 mg) PO DAILY #10 tabs 06/12/24 Allergies Allergy/AdvReac Type Severity Reaction Status Date / Time seafood Allergy Severe Anaphylaxis Verified 06/11/24 23:41 Penicillins [PENICILLINS] Allergy Intermediate RASH Verified 06/11/24 23:41 Review of Systems Review of Systems: Yes all other systems are reviewed and are negative [facility] Past Medical History Medical History Substance abuse Alcohol abuse Depression Opioid use disorder Asthma Social History Social History Household Members: Family Household Members Other:: Mom Housing: House Do you presently have visiting nurse or other home services: No Unable to assess alcohol history related to: Unknown Alcohol intake: former Patient Tobacco Use Status: Current everyday Tobacco user Tobacco use type: Cigarette Cigarette Packs Per Day: 1 Cigarettes Per Day: 20.0 Smoked in Last 30 Days: No e-Cigarette/Vaping Use: Currently Using Use of substances other than those prescribed or required for medical reasons: No Substance Use Type: Heroin Advance Directives: No Advance Directives Information Provided: Yes Do you have a plan to hurt others: No Plan service: No Current occupational status: employed Current occupation: right hand dominant Physical Exam Vital Signs: Vital Signs: Last Vital Signs Temp 97.9 F 06/12/24 04:56 Pulse 83 06/12/24 04:56 Resp 16 06/12/24 04:56 BP 127/73 06/12/24 04:56 Pulse Ox 96 06/12/24 04:56 O2 Del Method Room Air 06/12/24 04:56 BMI result Body Mass Index 25.4 Appearance: Alert. Oriented X3. No acute distress. ENT: Pharynx normal. Oral Mucosa moist Neck: Normal inspection. Neck supple. CVS: Normal heart rate and rhythm. Pulses normal. Respiratory: No respiratory distress. Equal air entry bilateral, bilateral wheezing Skin: Skin warm and dry. Normal skin color. Normal skin turgor. Extremities: No lower extremity edema. Neuro: Oriented X 3. Medications Administered Discontinued Medications Generic Name Dose Route Start Last Admin Trade Name Freq PRN Reason Stop Dose Admin Albuterol Sulfate 5 mg/ 0 mg 06/12/24 02:58 06/12/24 03:13 Albuterol/Ipratropium 3 ml INHALE 06/12/24 02:59 1 each ONCE ONE Administration Dexamethasone 10 mg 06/12/24 02:58 06/12/24 03:10 Dexamethasone 2 Mg Tablet PO 06/12/24 02:59 10 mg ONCE ONE Administration Guaifenesin/Codeine Phosphate 10 ml 06/12/24 02:59 06/12/24 03:10 Guaifen/Codeine Sf 200/20/10ml 10 Ml Liquid PO 06/12/24 03:00 10 ml STAT STA Administration Medical Decision Making Medical Decision Making [facility] Narrative: Patient's asthma exacerbation was given DuoNeb treatment and prednisone Lab Data [facility] Lab Attestation statement: I reviewed the patient's lab results. Labs: Lab Results 06/12/24 06/12/24 Range/Units 01:23 01:25 Influenza Type A (PCR) NEGATIVE (Negative) Influenza Type B (PCR) NEGATIVE (Negative) RSV RNA Qual (PCR) NEGATIVE (Negative) SARS-CoV-2 RNA (RT-PCR) NEGATIVE (Negative) S. pyogenes GrpA RADHA Negative (Negative) Radiology Impression Discussion of test interpretation with radiology: I have reviewed the radiologist's reading. Radiologist Impression: NAD Discharge Plan Discharge Clinical Impression: Asthma with acute exacerbation Patient Disposition: Home, Self-Care Instructions: Asthma (ED) Additional Instructions: Use your inhaler as advised Prednisone as prescribed Prescriptions: New prednisone 20 mg tablet 40 mg PO DAILY Qty: 10 0RF albuterol sulfate 90 mcg/actuation HFA aerosol inhaler 2 puff inhalation Q6H PRN (Reason: shortness of breath or wheezing) Qty: 8.5 0RF No Action fluticasone furoate-vilanterol [Breo Ellipta] 100-25 mcg/dose Blister With Device 1 ea inhalation RDAILY Qty: 1 0RF albuterol sulfate 90 mcg/actuation HFA aerosol inhaler 2 puff inhalation Q4-6H PRN (Reason: shortness of breath or wheezing) Qty: 6.7 3RF Rx Instructions: May dispense medication equivalent accepted by patient's insurance albuterol sulfate 2.5 mg /3 mL (0.083 %) solution for nebulization 2.5 mg inhalation Q4-6H PRN (Reason: shortness of breath or wheezing) Qty: 180 2RF Rx Instructions: May dispense medication equivalent accepted by patient's insurance cyclobenzaprine 10 mg tablet 10 mg PO TID PRN (Reason: muscle spasm) Qty: 14 0RF ibuprofen 600 mg tablet 600 mg PO Q8H PRN (Reason: pain) Qty: 14 0RF lidocaine 5 % adhesive patch,medicated 1 patch topical DAILY Qty: 15 0RF Rx Instructions: leave on most painful area for up to 12 hrs naproxen 500 mg tablet 500 mg PO BID PRN (Reason: pain) Qty: 20 0RF albuterol sulfate 90 mcg/actuation HFA aerosol inhaler 2 inh inhalation Q20M PRN (Reason: shortness of breath or wheezing) Qty: 8.5 0RF prednisone 20 mg tablet 40 mg PO DAILY 5 Days Qty: 10 0RF albuterol sulfate [Ventolin HFA] 90 mcg/actuation HFA aerosol inhaler 2 puff inhalation Q4-6H PRN (Reason: shortness of breath or wheezing) Qty: 8.5 1RF prednisone 50 mg tablet 50 mg PO DAILY 4 Days Qty: 4 0RF albuterol sulfate 90 mcg/actuation aerosol powdr breath activated 2 inh inhalation Q4-6H PRN (Reason: shortness of breath or wheezing) Qty: 1 0RF prednisone 20 mg tablet 40 mg PO DAILY 4 Days Qty: 8 0RF sertraline 25 mg tablet 50 mg PO DAILY Qty: 30 0RF (DME) Reset-O Digital Brandy (OUD) Misc See Rx Instructions .MEDSUPPLY Qty: 1 3RF Rx Instructions: As directed (3-4 times a week) 84 days buprenorphine-naloxone [Suboxone] 12-3 mg film 1 film sublingual Q24H Qty: 7 0RF Interventions: ED Discharge Assessment Last Done: 06/12/24 04:56 Discharge Date/Time: 06/12/24 04:57 Print Language: Lithuanian
[2024-06-12] MEDS: dexAMETHasone 2 MG TABLET 10 MG PO (03:10)
[2024-06-12] MEDS: guaiFEN/Codeine SF 200/20/10ML 10 ML LIQUID PO (03:10)
[2024-06-12 03:13] VITALS: PULSE 78; RESP 18; O2SAT 96
[2024-06-12] MEDS: Albuterol Sulfate 5 MG, Albuterol/Iprat 2.5/0.5MG 3 ML 3 ML INHALE (03:13)
[2024-06-12 04:39] VITALS: BP 124/73; PULSE 83; RESP 16; TEMP 36.6; O2SAT 96
--- NOTE | 2024-06-12 04:55 | PC.NURSE ---
reviewed discharge instructions with pt, pt verbalized understanding, no respiratory distress, no chest pain, upon discharge pt had a steady gait.
[2024-06-12 04:56] VITALS: BP 127/73; PULSE 83; RESP 16; TEMP 36.6; O2SAT 96
== END 2024-06-12 04:57 | disposition home or self-care (01) ==
PROVIDERS: Emergency Provider Internal Medicine
DX: J45.901 Unspecified asthma with (acute) exacerbation (principal); F17.210 Nicotine dependence, cigarettes, uncomplicated; Z03.818 Encounter for observation for suspected exposure to other biological agents ruled out
CPT/HCPCS: 0241U; 71046; 87651; 94640; 99285; J8540

== ENCOUNTER 2024-06-28 13:18 | Emergency (ER) | payer OTHER, SELFPAY ==
--- NOTE | ~2024-06-28 | XR_ITS ---
EXAMINATION: XR CHEST CLINICAL INFORMATION: History of asthma COMPARISON: Chest x-ray June 12, 2024 TECHNIQUE: 2 views of the chest were obtained. FINDINGS: Lungs are clear. No focal airspace consolidation. No peribronchial cuffing to suggest bronchitis. Cardiomediastinal silhouette is within normal limits. Soft tissue and osseous structures are unremarkable. XR/XR chest 2V IMPRESSION: No acute cardiopulmonary process. Electronically signed by: Grayson Montoya DO 06/28/2024 02:38 PM [facility]
[2024-06-28 13:26] VITALS: BP 132/70; PULSE 100; RESP 18; TEMP 36.9; O2SAT 97; BMI 19.1
[2024-06-28 14:35] LABS: Influenza A PCR NEGATIVE (Negative); Influenza B PCR NEGATIVE (Negative); Resp Syncy Virus RNA Qual PCR NEGATIVE (Negative); SARS COV2 PCR INHOUSE NEGATIVE (Negative)
--- NOTE | 2024-06-28 14:51 | ED_ITS ---
HPI - Asthma General Chief Complaint: Asthma Stated Complaint: asthma Time Seen by Provider: 06/28/24 14:51 Related Data Previous Rx's ?Medication ?Instructions ?Recorded fluticasone furoate 100 1 ea inhalation RDAILY #1 ea 07/09/22 mcg-vilanterol 25 mcg/dose inhalation powder (Breo Ellipta) sertraline 25 mg tablet 50 mg (2 x 25 mg) PO DAILY #30 tabs 09/23/22 [employer], OUD (Reset-O #1 ea 09/30/22 Digital Brandy (OUD)) buprenorphine 12 mg-naloxone 3 mg 1 film sublingual Q24H #7 ea 10/07/22 sublingual film (Suboxone) albuterol sulfate 2.5 mg/3 mL 2.5 mg (3 mL) inhalation Q4-6H PRN 10/23/22 (0.083 %) solution for nebulization shortness of breath or wheezing #180 mL albuterol sulfate 90 mcg/actuation 2 puff inhalation Q4-6H PRN 10/23/22 aerosol inhaler shortness of breath or wheezing #6.7 grams cyclobenzaprine 10 mg tablet 10 mg PO TID PRN muscle spasm #14 04/01/23 tabs ibuprofen 600 mg tablet 600 mg PO Q8H PRN pain #14 tabs 04/01/23 lidocaine 5 % topical patch 1 patch topical DAILY #15 ea 04/01/23 naproxen 500 mg tablet 500 mg PO BID PRN pain #20 tabs 04/29/23 albuterol sulfate 90 mcg/actuation 2 inh inhalation Q20M PRN 12/04/23 aerosol inhaler shortness of breath or wheezing #8.5 grams prednisone 20 mg tablet 40 mg (2 x 20 mg) PO DAILY 5 days 12/04/23 #10 tabs albuterol sulfate 90 mcg/actuation 2 puff inhalation Q4-6H PRN 12/16/23 aerosol inhaler (Ventolin HFA) shortness of breath or wheezing #8.5 grams prednisone 50 mg tablet 50 mg PO DAILY 4 days #4 tabs 12/16/23 albuterol sulfate 90 mcg/actuation 2 inh inhalation Q4-6H PRN 01/18/24 breath activated powder inhaler shortness of breath or wheezing #1 ea prednisone 20 mg tablet 40 mg (2 x 20 mg) PO DAILY 4 days 01/18/24 #8 tabs albuterol sulfate 90 mcg/actuation 2 puff inhalation Q6H PRN 06/12/24 aerosol inhaler shortness of breath or wheezing #8.5 grams prednisone 20 mg tablet 40 mg (2 x 20 mg) PO DAILY #10 tabs 06/12/24 Allergies Allergy/AdvReac Type Severity Reaction Status Date / Time seafood Allergy Severe Anaphylaxis Verified 06/28/24 13:29 Penicillins [PENICILLINS] Allergy Intermediate RASH Verified 06/28/24 13:29 [facility] Past Medical History Medical History Substance abuse Alcohol abuse Depression Opioid use disorder Asthma Social History Social History Household Members: Family Household Members Other:: Mom Housing: House Do you presently have visiting nurse or other home services: No Unable to assess alcohol history related to: Unknown Alcohol intake: former Patient Tobacco Use Status: Current everyday Tobacco user Tobacco use type: Cigarette Cigarette Packs Per Day: 1 Cigarettes Per Day: 20.0 e-Cigarette/Vaping Use: Currently Using Substance Use Type: Heroin Advance Directives: No Advance Directives Information Provided: No Do you have a plan to hurt others: No Plan service: No Current occupational status: employed Current occupation: right hand dominant Physical Exam Vital Signs: Vital Signs: Last Vital Signs Temp 98.4 F 06/28/24 13:26 Pulse 100 06/28/24 13:26 Resp 18 06/28/24 13:26 BP 132/70 06/28/24 13:26 Pulse Ox 97 06/28/24 13:26 O2 Del Method Room Air 06/28/24 13:26 BMI result Body Mass Index 19.1 Medical Decision Making Lab Data Labs: Lab Results 06/28/24 Range/Units 13:41 Influenza Type A (PCR) NEGATIVE (Negative) Influenza Type B (PCR) NEGATIVE (Negative) RSV RNA Qual (PCR) NEGATIVE (Negative) SARS-CoV-2 RNA (RT-PCR) NEGATIVE (Negative) Discharge Plan Discharge Prescriptions: No Action fluticasone furoate-vilanterol [Breo Ellipta] 100-25 mcg/dose Blister With Device 1 ea inhalation RDAILY Qty: 1 0RF albuterol sulfate 90 mcg/actuation HFA aerosol inhaler 2 puff inhalation Q4-6H PRN (Reason: shortness of breath or wheezing) Qty: 6.7 3RF Rx Instructions: May dispense medication equivalent accepted by patient's insurance albuterol sulfate 2.5 mg /3 mL (0.083 %) solution for nebulization 2.5 mg inhalation Q4-6H PRN (Reason: shortness of breath or wheezing) Qty: 180 2RF Rx Instructions: May dispense medication equivalent accepted by patient's insurance cyclobenzaprine 10 mg tablet 10 mg PO TID PRN (Reason: muscle spasm) Qty: 14 0RF ibuprofen 600 mg tablet 600 mg PO Q8H PRN (Reason: pain) Qty: 14 0RF lidocaine 5 % adhesive patch,medicated 1 patch topical DAILY Qty: 15 0RF Rx Instructions: leave on most painful area for up to 12 hrs prednisone 20 mg tablet 40 mg PO DAILY Qty: 10 0RF albuterol sulfate 90 mcg/actuation HFA aerosol inhaler 2 puff inhalation Q6H PRN (Reason: shortness of breath or wheezing) Qty: 8.5 0RF naproxen 500 mg tablet 500 mg PO BID PRN (Reason: pain) Qty: 20 0RF albuterol sulfate 90 mcg/actuation HFA aerosol inhaler 2 inh inhalation Q20M PRN (Reason: shortness of breath or wheezing) Qty: 8.5 0RF prednisone 20 mg tablet 40 mg PO DAILY 5 Days Qty: 10 0RF albuterol sulfate [Ventolin HFA] 90 mcg/actuation HFA aerosol inhaler 2 puff inhalation Q4-6H PRN (Reason: shortness of breath or wheezing) Qty: 8.5 1RF prednisone 50 mg tablet 50 mg PO DAILY 4 Days Qty: 4 0RF albuterol sulfate 90 mcg/actuation aerosol powdr breath activated 2 inh inhalation Q4-6H PRN (Reason: shortness of breath or wheezing) Qty: 1 0RF prednisone 20 mg tablet 40 mg PO DAILY 4 Days Qty: 8 0RF sertraline 25 mg tablet 50 mg PO DAILY Qty: 30 0RF (DME) Reset-O Digital Brandy (OUD) Misc See Rx Instructions .MEDSUPPLY Qty: 1 3RF Rx Instructions: As directed (3-4 times a week) 84 days buprenorphine-naloxone [Suboxone] 12-3 mg film 1 film sublingual Q24H Qty: 7 0RF Print Language: [place]
--- NOTE | 2024-06-28 14:52 | ED_ITS ---
HPI - General Adult General Chief complaint: Asthma Stated complaint: asthma Time Seen by Provider: 06/28/24 14:51 Source: patient Mode of arrival: ambulatory Limitations: no limitations History of Present Illness HPI narrative: Patient is a 29-year-old male presents emergency department for evaluation of endorsing having a cold over the past week with congestion runny nose productive cough. Unfortunately has ran out of his inhaler. Has a history of asthma, has noticed increased shortness of breath over the past 2 days. Denies orthopnea, PND. Denies trauma, fevers, chills, difficulty swallowing, neck pain, chest pain, palpitations, nausea, vomiting, abdominal pain, numbness or tingling of the extremities, recent lower extremity pain or swelling. Related Data Previous Rx's ?Medication ?Instructions ?Recorded fluticasone furoate 100 1 ea inhalation RDAILY #1 ea 07/09/22 mcg-vilanterol 25 mcg/dose inhalation powder (Breo Ellipta) sertraline 25 mg tablet 50 mg (2 x 25 mg) PO DAILY #30 tabs 09/23/22 [employer], OUD (Reset-O #1 ea 09/30/22 Digital Brandy (OUD)) buprenorphine 12 mg-naloxone 3 mg 1 film sublingual Q24H #7 ea 10/07/22 sublingual film (Suboxone) albuterol sulfate 2.5 mg/3 mL 2.5 mg (3 mL) inhalation Q4-6H PRN 10/23/22 (0.083 %) solution for nebulization shortness of breath or wheezing #180 mL albuterol sulfate 90 mcg/actuation 2 puff inhalation Q4-6H PRN 10/23/22 aerosol inhaler shortness of breath or wheezing #6.7 grams cyclobenzaprine 10 mg tablet 10 mg PO TID PRN muscle spasm #14 04/01/23 tabs ibuprofen 600 mg tablet 600 mg PO Q8H PRN pain #14 tabs 04/01/23 lidocaine 5 % topical patch 1 patch topical DAILY #15 ea 04/01/23 naproxen 500 mg tablet 500 mg PO BID PRN pain #20 tabs 04/29/23 albuterol sulfate 90 mcg/actuation 2 inh inhalation Q20M PRN 12/04/23 aerosol inhaler shortness of breath or wheezing #8.5 grams prednisone 20 mg tablet 40 mg (2 x 20 mg) PO DAILY 5 days 12/04/23 #10 tabs albuterol sulfate 90 mcg/actuation 2 puff inhalation Q4-6H PRN 12/16/23 aerosol inhaler (Ventolin HFA) shortness of breath or wheezing #8.5 grams prednisone 50 mg tablet 50 mg PO DAILY 4 days #4 tabs 12/16/23 albuterol sulfate 90 mcg/actuation 2 inh inhalation Q4-6H PRN 01/18/24 breath activated powder inhaler shortness of breath or wheezing #1 ea prednisone 20 mg tablet 40 mg (2 x 20 mg) PO DAILY 4 days 01/18/24 #8 tabs albuterol sulfate 90 mcg/actuation 2 puff inhalation Q6H PRN 06/12/24 aerosol inhaler shortness of breath or wheezing #8.5 grams prednisone 20 mg tablet 40 mg (2 x 20 mg) PO DAILY #10 tabs 06/12/24 albuterol sulfate 90 mcg/actuation 2 inh inhalation Q4-6H PRN 06/28/24 breath activated powder inhaler shortness of breath or wheezing #1 ea prednisone 20 mg tablet 40 mg (2 x 20 mg) PO DAILY #8 tabs 06/28/24 Allergies Allergy/AdvReac Type Severity Reaction Status Date / Time seafood Allergy Severe Anaphylaxis Verified 06/28/24 13:29 Penicillins [PENICILLINS] Allergy Intermediate RASH Verified 06/28/24 13:29 Review of Systems Review of Systems: Yes all other systems are reviewed and are negative PMFSH Past Medical History Attestation statement: The following information was validated with the patient. Source: old records reviewed Medical History Substance abuse Alcohol abuse Depression Opioid use disorder Asthma Social History Social History Household Members: Family Household Members Other:: Mom Housing: House Do you presently have visiting nurse or other home services: No Unable to assess alcohol history related to: Unknown Alcohol intake: former Patient Tobacco Use Status: Current everyday Tobacco user Tobacco use type: Cigarette Cigarette Packs Per Day: 1 Cigarettes Per Day: 20.0 Smoked in Last 30 Days: No e-Cigarette/Vaping Use: Currently Using Use of substances other than those prescribed or required for medical reasons: No Substance Use Type: Heroin Advance Directives: No Advance Directives Information Provided: No Do you have a plan to hurt others: No Plan service: No Current occupational status: employed Current occupation: right hand dominant Physical Exam ED Vital Signs: Vital Signs - 24 hr 06/28/24 13:26 06/28/24 15:44 06/28/24 16:27 Temperature 98.4 F 98 F Pulse Rate 100 86 99 Respiratory Rate 18 18 22 H Blood Pressure 132/70 130/79 Pulse Oximetry 97 100 Oxygen Delivery Method Room Air Room Air BMI result Body Mass Index 19.1 Appearance: Alert.?Oriented to person, place and time. No acute dis tress.?Normal affect. Eyes: Pupils equal, round and reactive to light.? ENT: Pharynx normal.?? Neck: Normal inspection.? Neck supple.?? CVS: Heart sounds normal. Normal heart rate and rhythm.? Pulses normal.?? Respiratory: No respiratory distress.? Lung sounds with diffuse expiratory wheezing bilaterally?? Abdomen: Soft and non-tender. Normoactive bowel sounds. Skin: Skin warm and dry.? Normal skin color.? Extremities: No lower extremity edema.? No calf ttp? Neuro: Moves all extremities spontaneously. Sensation intact bilaterally. No focal neuro deficits. Ambulates with normal steady gait. Medications Administered Discontinued Medications Generic Name Dose Route Start Last Admin Trade Name Freq PRN Reason Stop Dose Admin Albuterol Sulfate 2.5 mg/ 0 mg 06/28/24 15:17 06/28/24 15:41 Albuterol/Ipratropium 3 ml INHALE 06/28/24 15:18 1 dose ONCE ONE Administration Prednisone 40 mg 06/28/24 15:17 06/28/24 15:39 Prednisone 20 Mg Tablet PO 06/28/24 15:18 40 mg ONCE ONE Administration Medical Decision Making Medical Decision Making MDM Narrative: Patient is a 29-year-old male past medical history of asthma, polysubstance use disorder presenting to emergency department for evaluation of shortness breath. Of note he was most recently seen in the emergency department 05/23/2024 at which time he was given a prescription for his albuterol inhaler as well as a 5 day course of prednisone. Unfortunately, he states that he lost the inhaler a few days ago so he has not been able to use it. 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 States that his PCP recently retired and he is in the works of obtaining a new one. He has expiratory wheezing diffusely, is notably dyspneic with exertion. Patient received DuoNeb updraft as well as prednisone plan for re-evaluation. Anticipate this is an asthma exacerbation, in the setting of upper respiratory infection, lower suspicion for pneumonia but will obtain CXR Overall well-appearing, nontoxic, afebrile, no respiratory distress. No rash or lesions, urticaria, or evidence of angioedema to suggest allergic reaction/anaphylaxis. No swallowing difficulties to suggest aspiration. No associated chest pain, lower extremity redness pain or swelling, history of VTE/malignancy to suggest ACS. CHF, pericardial effusion, or pulmonary embolism. No palpitations or history of known arrhythmias. No recent trauma or injury, no tracheal deviation, unlikely tension pneumothorax. No history of diabetes, unlikely DKA. No acute bleeding or known anemia, no associated dizziness fatigue or chest pain to suggest acute anemia. Differential Diagnosis Differential Diagnoses: The differential diagnosis associated with the presentation includes (See narrative above) Admission/Observation Consideration of admission/observation: Escalation of care including admission/observation considered (See narrative above and course narrative for further detail) Lab Data MDM Lab Attestation statement: I reviewed the patient's lab results. (Viral serologies negative) Labs: Lab Results 06/28/24 Range/Units 13:41 Influenza Type A (PCR) NEGATIVE (Negative) Influenza Type B (PCR) NEGATIVE (Negative) RSV RNA Qual (PCR) NEGATIVE (Negative) SARS-CoV-2 RNA (RT-PCR) NEGATIVE (Negative) Independent Interpretation I performed an independent interpretation of an: Plain X-Ray (No consolidation or infiltrate) Radiology Impression Discussion of test interpretation with radiology: I have reviewed the radiologist's reading. Radiologist Impression: XR/XR chest 2V IMPRESSION: No acute cardiopulmonary process. External Record Review External record reviewed: Outpatient record Prescription Management I considered prescription management with: Other (See course narrative for further detail) Discharge Plan Discharge Clinical Impression: Asthma with acute exacerbation Patient Disposition: Home, Self-Care Instructions: Asthma (ED) Prescriptions: New prednisone 20 mg tablet 40 mg PO DAILY Qty: 8 0RF albuterol sulfate 90 mcg/actuation aerosol powdr breath activated 2 inh inhalation Q4-6H PRN (Reason: shortness of breath or wheezing) Qty: 1 0RF No Action fluticasone furoate-vilanterol [Breo Ellipta] 100-25 mcg/dose Blister With Device 1 ea inhalation RDAILY Qty: 1 0RF albuterol sulfate 90 mcg/actuation HFA aerosol inhaler 2 puff inhalation Q4-6H PRN (Reason: shortness of breath or wheezing) Qty: 6.7 3RF Rx Instructions: May dispense medication equivalent accepted by patient's insurance albuterol sulfate 2.5 mg /3 mL (0.083 %) solution for nebulization 2.5 mg inhalation Q4-6H PRN (Reason: shortness of breath or wheezing) Qty: 180 2RF Rx Instructions: May dispense medication equivalent accepted by patient's insurance cyclobenzaprine 10 mg tablet 10 mg PO TID PRN (Reason: muscle spasm) Qty: 14 0RF ibuprofen 600 mg tablet 600 mg PO Q8H PRN (Reason: pain) Qty: 14 0RF lidocaine 5 % adhesive patch,medicated 1 patch topical DAILY Qty: 15 0RF Rx Instructions: leave on most painful area for up to 12 hrs prednisone 20 mg tablet 40 mg PO DAILY Qty: 10 0RF albuterol sulfate 90 mcg/actuation HFA aerosol inhaler 2 puff inhalation Q6H PRN (Reason: shortness of breath or wheezing) Qty: 8.5 0RF naproxen 500 mg tablet 500 mg PO BID PRN (Reason: pain) Qty: 20 0RF albuterol sulfate 90 mcg/actuation HFA aerosol inhaler 2 inh inhalation Q20M PRN (Reason: shortness of breath or wheezing) Qty: 8.5 0RF prednisone 20 mg tablet 40 mg PO DAILY 5 Days Qty: 10 0RF albuterol sulfate [Ventolin HFA] 90 mcg/actuation HFA aerosol inhaler 2 puff inhalation Q4-6H PRN (Reason: shortness of breath or wheezing) Qty: 8.5 1RF prednisone 50 mg tablet 50 mg PO DAILY 4 Days Qty: 4 0RF albuterol sulfate 90 mcg/actuation aerosol powdr breath activated 2 inh inhalation Q4-6H PRN (Reason: shortness of breath or wheezing) Qty: 1 0RF prednisone 20 mg tablet 40 mg PO DAILY 4 Days Qty: 8 0RF sertraline 25 mg tablet 50 mg PO DAILY Qty: 30 0RF (DME) Reset-O Digital Brandy (OUD) Misc See Rx Instructions .MEDSUPPLY Qty: 1 3RF Rx Instructions: As directed (3-4 times a week) 84 days buprenorphine-naloxone [Suboxone] 12-3 mg film 1 film sublingual Q24H Qty: 7 0RF Referrals: Physician,Unknown J [Primary Care Provider] - Interventions: ED Discharge Assessment Last Done: 06/28/24 16:27 Discharge Date/Time: 06/28/24 16:28 Print Language: Sinhala
[2024-06-28] MEDS: predniSONE 20 MG TABLET 40 MG PO (15:39)
[2024-06-28] MEDS: Albuterol Sulfate 2.5 MG, Albuterol/Iprat 2.5/0.5MG 3 ML 3 ML INHALE (15:41)
[2024-06-28 15:44] VITALS: PULSE 86; RESP 18; O2SAT 98
[2024-06-28 16:27] VITALS: BP 130/79; PULSE 99; RESP 22; TEMP 36.6; O2SAT 100
== END 2024-06-28 16:28 | disposition home or self-care (01) ==
PROVIDERS: Emergency Provider Emergency Medicine
DX: J45.901 Unspecified asthma with (acute) exacerbation (principal); Z03.818 Encounter for observation for suspected exposure to other biological agents ruled out; R06.02 Shortness of breath; F17.210 Nicotine dependence, cigarettes, uncomplicated
CPT/HCPCS: 0241U; 71046; 94640; 99284

== ENCOUNTER 2024-08-05 16:16 | Emergency (ER) | payer OTHER, SELFPAY ==
[2024-08-05 16:21] VITALS: BP 136/69; PULSE 87; RESP 16; TEMP 35.9; O2SAT 97; BMI 23.7
--- NOTE | 2024-08-05 16:21 | ED.GENADULT ---
HPI - General Adult General Chief complaint: Dental/Oral Stated complaint: Tooth Pain Time Seen by Provider: 08/05/24 16:28 Source: patient and RN notes reviewed Mode of arrival: ambulatory Limitations: no limitations History of Present Illness ED Provider: Arpita Jamison PA-C HPI narrative: This is a 29-year-old male who presents emergency department with complaints of left upper tooth pain starting yesterday. Patient denies any fevers or chills. He is unsure he has a problem with his wisdom teeth. He states that he tried calling his dentist however is still in the waiting list. He denies any fevers or chills. No difficulty swallowing. He has been taking Tylenol with minimal relief No other complaints or concerns at this time. MD complaint: Dental pain Onset (ago): day(s) Location: mouth Radiation: non-radiation Relieving factors: none Exacerbating factors: none Associated symptoms: denies other symptoms Treatments prior to arrival: none Related Data Previous Rx's ?Medication ?Instructions ?Recorded fluticasone furoate 100 1 ea inhalation RDAILY #1 ea 07/09/22 mcg-vilanterol 25 mcg/dose inhalation powder (Breo Ellipta) sertraline 25 mg tablet 50 mg (2 x 25 mg) PO DAILY #30 tabs 09/23/22 [employer], OUD (Reset-O #1 ea 09/30/22 Digital Brandy (OUD)) buprenorphine 12 mg-naloxone 3 mg 1 film sublingual Q24H #7 ea 10/07/22 sublingual film (Suboxone) albuterol sulfate 2.5 mg/3 mL 2.5 mg (3 mL) inhalation Q4-6H PRN 10/23/22 (0.083 %) solution for nebulization shortness of breath or wheezing #180 mL albuterol sulfate 90 mcg/actuation 2 puff inhalation Q4-6H PRN 10/23/22 aerosol inhaler shortness of breath or wheezing #6.7 grams cyclobenzaprine 10 mg tablet 10 mg PO TID PRN muscle spasm #14 04/01/23 tabs ibuprofen 600 mg tablet 600 mg PO Q8H PRN pain #14 tabs 04/01/23 lidocaine 5 % topical patch 1 patch topical DAILY #15 ea 04/01/23 naproxen 500 mg tablet 500 mg PO BID PRN pain #20 tabs 04/29/23 albuterol sulfate 90 mcg/actuation 2 inh inhalation Q20M PRN 12/04/23 aerosol inhaler shortness of breath or wheezing #8.5 grams prednisone 20 mg tablet 40 mg (2 x 20 mg) PO DAILY 5 days 12/04/23 #10 tabs albuterol sulfate 90 mcg/actuation 2 puff inhalation Q4-6H PRN 12/16/23 aerosol inhaler (Ventolin HFA) shortness of breath or wheezing #8.5 grams prednisone 50 mg tablet 50 mg PO DAILY 4 days #4 tabs 12/16/23 albuterol sulfate 90 mcg/actuation 2 inh inhalation Q4-6H PRN 01/18/24 breath activated powder inhaler shortness of breath or wheezing #1 ea prednisone 20 mg tablet 40 mg (2 x 20 mg) PO DAILY 4 days 01/18/24 #8 tabs albuterol sulfate 90 mcg/actuation 2 puff inhalation Q6H PRN 06/12/24 aerosol inhaler shortness of breath or wheezing #8.5 grams prednisone 20 mg tablet 40 mg (2 x 20 mg) PO DAILY #10 tabs 06/12/24 albuterol sulfate 90 mcg/actuation 2 inh inhalation Q4-6H PRN 06/28/24 breath activated powder inhaler shortness of breath or wheezing #1 ea prednisone 20 mg tablet 40 mg (2 x 20 mg) PO DAILY #8 tabs 06/28/24 acetaminophen 500 mg tablet 500 - 1,000 mg (1 - 2 x 500 mg) PO 08/05/24 (Tylenol Extra Strength) Q6H PRN pain #30 tabs clindamycin HCl 300 mg capsule 300 mg PO TID 7 days #21 caps 08/05/24 ibuprofen 600 mg tablet 600 mg PO Q6H PRN pain #30 tabs 08/05/24 Allergies Allergy/AdvReac Type Severity Reaction Status Date / Time seafood Allergy Severe Anaphylaxis Verified 08/05/24 16:22 Penicillins [PENICILLINS] Allergy Intermediate RASH Verified 08/05/24 16:22 Review of Systems Review of Systems: Yes all other systems are reviewed and are negative Constitutional: Constitutional: Reports as per [facility] Past Medical History Medical History Substance abuse Alcohol abuse Depression Opioid use disorder Asthma Social History Social History Household Members: Family Household Members Other:: Mom Housing: House Do you presently have visiting nurse or other home services: No Unable to assess alcohol history related to: Unknown Alcohol intake: former Patient Tobacco Use Status: Current everyday Tobacco user Tobacco use type: Cigarette Cigarette Packs Per Day: 1 Cigarettes Per Day: 20.0 e-Cigarette/Vaping Use: Currently Using Substance Use Type: Heroin Advance Directives: No Advance Directives Information Provided: No Do you have a plan to hurt others: No Plan service: No Current occupational status: employed Current occupation: right hand dominant Physical Exam ED Vital Signs: Vital Signs - 24 hr 08/05/24 16:21 Temperature 96.6 F L Pulse Rate 87 Respiratory Rate 16 Blood Pressure 136/69 Pulse Oximetry 97 Oxygen Delivery Method Room Air BMI result Body Mass Index 23.7 Const General: cooperative, comfortable and no acute distress Orientation/consciousness: patient oriented x3 Limitations: no limitations HENMT Other: Upper dentition in poor repair, tooth 15 and 16 both decayed, no surrounding gingival erythema, or fluctuance. No evidence of dental abscess Head: Yes normal to inspection, Yes normocephalic and Yes atraumatic Ears: hearing grossly normal bilaterally General nose exam: Normal external nose present Face and sinus: Yes normal facial exam Mouth: Normal oral and palatal mucosa present, oropharynx normal and moist mucous membranes Throat: Yes posterior oropharynx normal Eyes General: appearance normal, both eyes and all related structures Eyelids: Yes eyelids normal Conjunctivae: conjunctivae normal Sclerae: sclerae normal Pupils: Equal, round and reactive pupils present EOM: EOMs intact bilaterally Neck Neck: Yes normal visual inspection, Yes full ROM and Yes no lymphadenopathy Lymphatic: no lymphadenopathy noted Chest Chest palpation & inspection: normal inspection of the chest Resp Effort & Inspection: normal respiratory effort and able to speak in complete sentences Auscultation: clear to auscultation bilaterally, no crackles, no rales, no rhonchi and no wheezes Cardio Rate: regular rate Rhythm: regular rhythm Heart sounds: S1 normal heart sound present and S2 normal heart sound present GI Inspection: Yes normal to inspection Skin General skin exam: no rashes or lesions noted Trauma: no lacerations or abrasions Wounds: no wounds Neuro General: patient oriented x3 and moves all extremities Cranial nerves: Yes Equal, round and reactive pupils present Extrem General: Yes normal to inspection Right upper extremity: normal to inspection Left upper extremity: normal to inspection Right lower extremity: normal to inspection Left lower extremity: normal to inspection Medical Decision Making Medical Decision Making [facility] Narrative: This is a 29-year-old male who presents emergency department with complaints of left upper dental pain starting yesterday. On arrival, vital signs within normal limits. He is speaking full sentences under no acute distress. Left upper dentition in poor repair. No surrounding gingival induration to suggest a dental abscess. Will treat with clindamycin as patient has a penicillin allergy. Given list of dental clinics in the area. Given strict return precautions. He understands agrees with plan. Patient stable for discharge Differential Diagnosis Differential Diagnoses: The differential diagnosis associated with the presentation includes Dental decay, fracture, dental abscess, dental caries Discharge Plan Discharge Clinical Impression: Dental decay Patient Disposition: Home, Self-Care Instructions: Toothache (ED) Additional Instructions: You were seen in the ER for dental pain. You have multiple teeth that likely need to be extracted. I am treating you with a course of antibiotics, please take as prescribed. Finish the entire course even if your symptoms improve. Alternate between tylenol or motrin for pain. Follow up with a dentist. If any new or worsening symptoms occur including difficulty swallowing, chest pain, shortness of breath, please seek emergent care. Prescriptions: New clindamycin HCl 300 mg capsule 300 mg PO TID 7 Days Qty: 21 0RF ibuprofen 600 mg tablet 600 mg PO Q6H PRN (Reason: pain) Qty: 30 0RF acetaminophen [Tylenol Extra Strength] 500 mg tablet 500 - 1,000 mg PO Q6H PRN (Reason: pain) Qty: 30 0RF No Action fluticasone furoate-vilanterol [Breo Ellipta] 100-25 mcg/dose Blister With Device 1 ea inhalation RDAILY Qty: 1 0RF albuterol sulfate 90 mcg/actuation HFA aerosol inhaler 2 puff inhalation Q4-6H PRN (Reason: shortness of breath or wheezing) Qty: 6.7 3RF Rx Instructions: May dispense medication equivalent accepted by patient's insurance albuterol sulfate 2.5 mg /3 mL (0.083 %) solution for nebulization 2.5 mg inhalation Q4-6H PRN (Reason: shortness of breath or wheezing) Qty: 180 2RF Rx Instructions: May dispense medication equivalent accepted by patient's insurance cyclobenzaprine 10 mg tablet 10 mg PO TID PRN (Reason: muscle spasm) Qty: 14 0RF ibuprofen 600 mg tablet 600 mg PO Q8H PRN (Reason: pain) Qty: 14 0RF lidocaine 5 % adhesive patch,medicated 1 patch topical DAILY Qty: 15 0RF Rx Instructions: leave on most painful area for up to 12 hrs prednisone 20 mg tablet 40 mg PO DAILY Qty: 10 0RF albuterol sulfate 90 mcg/actuation HFA aerosol inhaler 2 puff inhalation Q6H PRN (Reason: shortness of breath or wheezing) Qty: 8.5 0RF prednisone 20 mg tablet 40 mg PO DAILY Qty: 8 0RF albuterol sulfate 90 mcg/actuation aerosol powdr breath activated 2 inh inhalation Q4-6H PRN (Reason: shortness of breath or wheezing) Qty: 1 0RF naproxen 500 mg tablet 500 mg PO BID PRN (Reason: pain) Qty: 20 0RF albuterol sulfate 90 mcg/actuation HFA aerosol inhaler 2 inh inhalation Q20M PRN (Reason: shortness of breath or wheezing) Qty: 8.5 0RF prednisone 20 mg tablet 40 mg PO DAILY 5 Days Qty: 10 0RF albuterol sulfate [Ventolin HFA] 90 mcg/actuation HFA aerosol inhaler 2 puff inhalation Q4-6H PRN (Reason: shortness of breath or wheezing) Qty: 8.5 1RF prednisone 50 mg tablet 50 mg PO DAILY 4 Days Qty: 4 0RF albuterol sulfate 90 mcg/actuation aerosol powdr breath activated 2 inh inhalation Q4-6H PRN (Reason: shortness of breath or wheezing) Qty: 1 0RF prednisone 20 mg tablet 40 mg PO DAILY 4 Days Qty: 8 0RF sertraline 25 mg tablet 50 mg PO DAILY Qty: 30 0RF (DME) Reset-O Digital Brandy (OUD) Misc See Rx Instructions .MEDSUPPLY Qty: 1 3RF Rx Instructions: As directed (3-4 times a week) 84 days buprenorphine-naloxone [Suboxone] 12-3 mg film 1 film sublingual Q24H Qty: 7 0RF Discharge Date/Time: 08/05/24 16:33 Print Language: Comoran
== END 2024-08-05 16:33 | disposition home or self-care (01) ==
LOC: HO.ED 16:32
PROVIDERS: Emergency Provider Internal Medicine
DX: K02.9 Dental caries, unspecified (principal)
CPT/HCPCS: 99281; 99282

== ENCOUNTER 2024-10-14 21:16 | Emergency (ER) | payer OTHER, SELFPAY ==
--- NOTE | 2024-10-14 21:17 | ECG_ITS ---
Test Reason : chest pain Blood Pressure : */* mmHG Vent. Rate : 77 BPM Atrial Rate : 77 BPM P-R Int : 160 ms QRS Dur : 80 ms QT Int : 344 ms P-R-T Axes : 93 89 51 degrees QTcB Int : 389 ms Normal sinus rhythm with sinus arrhythmia Normal ECG When compared with ECG of 26-Dec-2023 21:55, QT has shortened Referred By: Generic ED Physician Electronically Signed By: TAMMY DON
[2024-10-14 21:34] VITALS: BP 128/81; PULSE 76; RESP 18; TEMP 36.4; O2SAT 98; BMI 25.7
[2024-10-14 21:54] LABS: Basophils Percent Auto 0.6 % (0-2); Eosinophils Absolute Auto 0.2 X10*3/uL (0.0-0.4); Eosinophils Percent Auto 3.5 % (0-4); Hematocrit 41.6 % (42.0-52.0); Hemoglobin 14.8 g/dl (14.0-18.0); Imm Gran Abs Auto 0.02 X10*3/uL (0.00-0.03); Imm Gran Pct Auto 0.3 % (0.0-0.4); Lymphocytes Absolute Auto 1.6 X10*3/uL (1.2-4.9); Lymphocytes Percent Auto 22.7 % (20-40); MANUAL DIFF FLAG NO; Mean Corpuscular HGB Conc 35.6 g/dl (31.0-36.0); Mean Corpuscular Hemoglobin 28.8 pg (27.0-33.0); Mean Corpuscular Volume 81.1 fL (80.0-98.0); Mean Platelet Volume 9.7 fL (9.4-12.4); Monocytes Absolute Auto 0.9 X10*3/uL (0.1-1.2); Monocytes Percent Auto 12.6 % (2-11); Neutrophils Absolute Auto 4.1 x10*3/uL (2.0-8.3); Neutrophils Percent Auto 60.3 % (45-73); Platelet Count 278 X10*3/uL (160-400); Red Blood Count 5.13 X10*6/uL (4.60-5.80); Red Cell Distribution Width 13.2 % (11.0-16.0); White Blood Count 6.8 X10*3/uL (4.8-10.8)
[2024-10-14 22:08] LABS: Alanine Aminotransferase 13 U/L (0-40); Albumin Level 4.4 g/dL (3.5-5.0); Alkaline Phosphatase 103 U/L (39-117); Anion Gap 15 (12-20); Aspartate Amino Transferase 20 U/L (5-37); Bilirubin Total 0.5 mg/dL (0.0-1.0); Blood Urea Nitrogen 14 mg/dL (9-16); Calcium 9.2 mg/dL (8.4-10.2); Carbon Dioxide 26 mmol/L (22-29); Chloride 105 mmol/L (96-108); Creatinine Clr Calc Pharmacy 133.7; Estimated Glomerular Filt Rate > 60; Glucose Random 105 mg/dL (60-115); Potassium 3.6 mmol/L (3.3-5.1); Sodium 142 mmol/L (135-145); Total Protein 7.5 g/dL (6.5-8.0)
[2024-10-14 22:21] LABS: Troponin-I High Sensitivity < 2.7 ng/L (<3.5-35.0)
== END 2024-10-15 00:48 | disposition left against medical advice (07) ==
PROVIDERS: Emergency Provider Internal Medicine
DX: R07.9 Chest pain, unspecified (principal); Z53.21 Procedure and treatment not carried out due to patient leaving prior to being seen by health care provider
CPT/HCPCS: 36415; 80053; 84484; 85025; 93005; 99281; 99283

== ENCOUNTER → 2024-10-14 21:17 | Outpatient (BNV) | payer OTHER, SELFPAY | PROVIDERS: Emergency Provider Internal Medicine; Visit Provider Internal Medicine | DX: R07.9 Chest pain, unspecified (principal) | CPT/HCPCS: 93010 ==

== ENCOUNTER 2024-10-15 13:21 | Emergency (ER) | payer OTHER, SELFPAY ==
--- NOTE | ~2024-10-15 | XR_ITS ---
EXAMINATION: XR KNEE, RIGHT CLINICAL INFORMATION: pain and swelling 1 week COMPARISON: None available. TECHNIQUE: Four views of the right knee. FINDINGS: No fracture, dislocation, or suspicious bone lesion. Normal bone mineralization. There is a posteriorly cortically based mixed sclerotic and lytic benign-appearing lesion measuring 3.2 x 1.5 x 1.0 cm, consistent with a fibrous cortical defect. There is normal alignment. Joint spaces are preserved. No significant arthropathy. There is a moderate sized suprapatellar joint effusion. Soft tissues appear normal. XR/XR knee RT 4V IMPRESSION: 1. No acute bony abnormalities right knee. 2. Moderate sized suprapatellar joint effusion. Electronically signed by: Lauri Robledo MD 10/15/2024 02:35 PM DAO
[2024-10-15 14:03] VITALS: BP 109/82; PULSE 65; RESP 16; TEMP 36.7; O2SAT 99; BMI 25.1
--- NOTE | 2024-10-15 14:04 | ED.GENADULT ---
HPI - General Adult General Chief complaint: Extremity Injury, Lower Stated complaint: knee inj Time Seen by Provider: 10/15/24 16:22 Source: patient, RN notes reviewed and old records reviewed Mode of arrival: ambulatory Limitations: no limitations History of Present Illness ED Provider: Kamran HENRY narrative: Patient is a 29-year-old male presenting with complaint of atraumatic right knee pain and swelling x 1 week. Reports difficulty walking due to pain. Denies erythema, warmth, fevers. MD complaint: knee pain Onset (ago): week(s) Treatments prior to arrival: none Related Data Previous Rx's ?Medication ?Instructions ?Recorded fluticasone furoate 100 1 ea inhalation RDAILY #1 ea 07/09/22 mcg-vilanterol 25 mcg/dose inhalation powder (Breo Ellipta) sertraline 25 mg tablet 50 mg (2 x 25 mg) PO DAILY #30 tabs 09/23/22 [employer], OUD (Reset-O #1 ea 09/30/22 Digital Brandy (OUD)) buprenorphine 12 mg-naloxone 3 mg 1 film sublingual Q24H #7 ea 10/07/22 sublingual film (Suboxone) albuterol sulfate 2.5 mg/3 mL 2.5 mg (3 mL) inhalation Q4-6H PRN 10/23/22 (0.083 %) solution for nebulization shortness of breath or wheezing #180 mL albuterol sulfate 90 mcg/actuation 2 puff inhalation Q4-6H PRN 10/23/22 aerosol inhaler shortness of breath or wheezing #6.7 grams cyclobenzaprine 10 mg tablet 10 mg PO TID PRN muscle spasm #14 04/01/23 tabs ibuprofen 600 mg tablet 600 mg PO Q8H PRN pain #14 tabs 04/01/23 lidocaine 5 % topical patch 1 patch topical DAILY #15 ea 04/01/23 naproxen 500 mg tablet 500 mg PO BID PRN pain #20 tabs 04/29/23 albuterol sulfate 90 mcg/actuation 2 inh inhalation Q20M PRN 12/04/23 aerosol inhaler shortness of breath or wheezing #8.5 grams prednisone 20 mg tablet 40 mg (2 x 20 mg) PO DAILY 5 days 12/04/23 #10 tabs albuterol sulfate 90 mcg/actuation 2 puff inhalation Q4-6H PRN 12/16/23 aerosol inhaler (Ventolin HFA) shortness of breath or wheezing #8.5 grams prednisone 50 mg tablet 50 mg PO DAILY 4 days #4 tabs 12/16/23 albuterol sulfate 90 mcg/actuation 2 inh inhalation Q4-6H PRN 01/18/24 breath activated powder inhaler shortness of breath or wheezing #1 ea prednisone 20 mg tablet 40 mg (2 x 20 mg) PO DAILY 4 days 01/18/24 #8 tabs albuterol sulfate 90 mcg/actuation 2 puff inhalation Q6H PRN 06/12/24 aerosol inhaler shortness of breath or wheezing #8.5 grams prednisone 20 mg tablet 40 mg (2 x 20 mg) PO DAILY #10 tabs 06/12/24 albuterol sulfate 90 mcg/actuation 2 inh inhalation Q4-6H PRN 06/28/24 breath activated powder inhaler shortness of breath or wheezing #1 ea prednisone 20 mg tablet 40 mg (2 x 20 mg) PO DAILY #8 tabs 06/28/24 acetaminophen 500 mg tablet 500 - 1,000 mg (1 - 2 x 500 mg) PO 08/05/24 (Tylenol Extra Strength) Q6H PRN pain #30 tabs clindamycin HCl 300 mg capsule 300 mg PO TID 7 days #21 caps 08/05/24 ibuprofen 600 mg tablet 600 mg PO Q6H PRN pain #30 tabs 08/05/24 Allergies Allergy/AdvReac Type Severity Reaction Status Date / Time seafood Allergy Severe Anaphylaxis Verified 10/15/24 14:05 Penicillins [PENICILLINS] Allergy Intermediate RASH Verified 10/15/24 14:05 Review of Systems Review of Systems: As per HPI Yes all other systems are reviewed and are negative Constitutional: Constitutional: Reports as per HPI [facility] Past Medical History Medical History Substance abuse Alcohol abuse Depression Opioid use disorder Asthma Social History Social History Household Members: Family Household Members Other:: Mom Housing: House Do you presently have visiting nurse or other home services: No Unable to assess alcohol history related to: Unknown Alcohol intake: former Patient Tobacco Use Status: Current everyday Tobacco user Tobacco use type: Cigarette Cigarette Packs Per Day: 1 Cigarettes Per Day: 20.0 e-Cigarette/Vaping Use: Currently Using Substance Use Type: Heroin Advance Directives: No Advance Directives Information Provided: No Do you have a plan to hurt others: No Plan service: No Current occupational status: employed Current occupation: right hand dominant Physical Exam ED Vital Signs: Vital Signs - 24 hr 10/15/24 14:03 10/15/24 16:18 Temperature 98.1 F 97.9 F Pulse Rate 65 92 Respiratory Rate 16 16 Blood Pressure 109/82 114/70 Pulse Oximetry 99 97 Oxygen Delivery Method Room Air Room Air BMI result Body Mass Index 25.1 Vital signs have been reviewed and appear to be correct. Blood pressure normal. Heart rate normal. Respiratory rate normal. Temperature normal. Oxygen saturation normal. Const General: cooperative, healthy appearing and no acute distress Orientation/consciousness: oriented to person, oriented to place, oriented to time and patient oriented x3 Limitations: no limitations HENMT Head: Yes normocephalic and Yes atraumatic Ears: external ears normal General nose exam: Normal external nose present Face and sinus: Yes face symmetric Mouth: oropharynx normal and moist mucous membranes Throat: Yes uvula midline Eyes Pupils: Equal, round and reactive pupils present Neck Neck: Yes normal visual inspection and Yes supple Resp Effort & Inspection: normal respiratory effort and able to speak in complete sentences Auscultation: clear to auscultation bilaterally Cardio Rate: regular rate Rhythm: regular rhythm Heart sounds: S1 normal heart sound present and S2 normal heart sound present GI Palpation (GI): Soft to palpation and nontender Auscultation: normoactive bowel sounds General: Yes no CVA tenderness Back/Spine/Pelvis Back: no CVA tenderness Skin General skin exam: elasticity normal and turgor normal Neuro General: oriented to person, oriented to place, oriented to time, patient oriented x3, moves all extremities, no focal motor deficits and CN's II-XI intact bilaterally Cranial nerves: Yes Equal, round and reactive pupils present Cognition (Neuro): normal cognition Extrem General: Yes full ROM, Yes no pedal edema and Yes no calf tenderness Right lower extremity: knee Details: swelling Location: of the patella, normal ROM and knee ligament exam normal; no unusual warmth and foot Details: vascular exam Details: dorsalis pedis pulse present, posterior tibial pulse present and normal capillary refill Psych Mental Status: mental status grossly normal Affect: normal affect Thought process: Normal thought process present Course Course Course Narrative: This is a rapid medical exam performed by Chitra Andrew NP: Additional HPI, ROS, PE not included below will be deferred to primary provider. Patient is a 29-year-old male presenting with complaint of atraumatic right knee pain and swelling x 1 week. Appears swollen, however, patient unable to move pants in triage for full evaluation. Reports difficulty walking due to pain. plan: xray Medical Decision Making Medical Decision Making [facility] Narrative: Patient is a 29-year-old male presenting with complaint of atraumatic right knee pain and swelling x 1 week. On exam patient is awake, A+Ox3, VS WNL, afebrile, normal neurological exam without focal deficits, physical exam findings as above. Given reported symptoms and physical exam findings, initial differential includes but is not limited to strain, sprain, effusion, fracture. X-ray notable for moderate suprapatellar effusion. My interpretation is in agreement with the radiologist's interpretation. No suspicion for septic joint based on physical exam findings. Results discussed with patient and all questions answered. Hero wrap applied to knee and patient advised to wear this for compression until symptoms resolve, advised patient to elevate leg while at rest. Will refer to orthopedics for any ongoing symptoms. Return precautions discussed. Patient verbalized understanding of and agreement with plan. Differential Diagnosis Differential Diagnoses: The differential diagnosis associated with the presentation includes as per [facility] Independent Interpretation I performed an independent interpretation of an: Plain X-Ray Interpretation: Moderate suprapatellar joint effusion on right knee x-ray Radiology Impression Discussion of test interpretation with radiology: I have reviewed the radiologist's reading. Radiologist Impression: XR/XR knee RT 4V IMPRESSION: 1. No acute bony abnormalities right knee. 2. Moderate sized suprapatellar joint effusion. External Record Review External record reviewed: Inpatient record, Office record and Outpatient record Discharge Plan Discharge Clinical Impression: Effusion of right knee Patient Disposition: Home, Self-Care Instructions: How to Use an Elastic Bandage (ED), Swollen Knee Joint (ED), Joint Aspiration (DC) Additional Instructions: You were evaluated in the emergency department today for knee pain. Your x-ray showed some fluid around your knee. Your knee was wrapped with an HERO bandage today. We recommend that you continue to use this at home until the swelling improves. You should also keep your leg elevated while at rest. If your symptoms persist, follow up with orthopedics. Return to the emergency department if you develop worsening swelling, new redness or warmth, fever, or any other new or concerning symptoms. Prescriptions: No Action fluticasone furoate-vilanterol [Breo Ellipta] 100-25 mcg/dose Blister With Device 1 ea inhalation RDAILY Qty: 1 0RF albuterol sulfate 90 mcg/actuation HFA aerosol inhaler 2 puff inhalation Q4-6H PRN (Reason: shortness of breath or wheezing) Qty: 6.7 3RF Rx Instructions: May dispense medication equivalent accepted by patient's insurance albuterol sulfate 2.5 mg /3 mL (0.083 %) solution for nebulization 2.5 mg inhalation Q4-6H PRN (Reason: shortness of breath or wheezing) Qty: 180 2RF Rx Instructions: May dispense medication equivalent accepted by patient's insurance cyclobenzaprine 10 mg tablet 10 mg PO TID PRN (Reason: muscle spasm) Qty: 14 0RF ibuprofen 600 mg tablet 600 mg PO Q8H PRN (Reason: pain) Qty: 14 0RF lidocaine 5 % adhesive patch,medicated 1 patch topical DAILY Qty: 15 0RF Rx Instructions: leave on most painful area for up to 12 hrs prednisone 20 mg tablet 40 mg PO DAILY Qty: 10 0RF albuterol sulfate 90 mcg/actuation HFA aerosol inhaler 2 puff inhalation Q6H PRN (Reason: shortness of breath or wheezing) Qty: 8.5 0RF prednisone 20 mg tablet 40 mg PO DAILY Qty: 8 0RF albuterol sulfate 90 mcg/actuation aerosol powdr breath activated 2 inh inhalation Q4-6H PRN (Reason: shortness of breath or wheezing) Qty: 1 0RF naproxen 500 mg tablet 500 mg PO BID PRN (Reason: pain) Qty: 20 0RF albuterol sulfate 90 mcg/actuation HFA aerosol inhaler 2 inh inhalation Q20M PRN (Reason: shortness of breath or wheezing) Qty: 8.5 0RF prednisone 20 mg tablet 40 mg PO DAILY 5 Days Qty: 10 0RF albuterol sulfate [Ventolin HFA] 90 mcg/actuation HFA aerosol inhaler 2 puff inhalation Q4-6H PRN (Reason: shortness of breath or wheezing) Qty: 8.5 1RF prednisone 50 mg tablet 50 mg PO DAILY 4 Days Qty: 4 0RF albuterol sulfate 90 mcg/actuation aerosol powdr breath activated 2 inh inhalation Q4-6H PRN (Reason: shortness of breath or wheezing) Qty: 1 0RF prednisone 20 mg tablet 40 mg PO DAILY 4 Days Qty: 8 0RF clindamycin HCl 300 mg capsule 300 mg PO TID 7 Days Qty: 21 0RF ibuprofen 600 mg tablet 600 mg PO Q6H PRN (Reason: pain) Qty: 30 0RF acetaminophen [Tylenol Extra Strength] 500 mg tablet 500 - 1,000 mg PO Q6H PRN (Reason: pain) Qty: 30 0RF sertraline 25 mg tablet 50 mg PO DAILY Qty: 30 0RF (DME) Reset-O Digital Brandy (OUD) Misc See Rx Instructions .MEDSUPPLY Qty: 1 3RF Rx Instructions: As directed (3-4 times a week) 84 days buprenorphine-naloxone [Suboxone] 12-3 mg film 1 film sublingual Q24H Qty: 7 0RF Referrals: [facility] [Provider Group] Print Language: Portuguese
[2024-10-15 16:18] VITALS: BP 114/70; PULSE 92; RESP 16; TEMP 36.6; O2SAT 97
[2024-10-15 16:52] VITALS: BP 114/70; PULSE 92; RESP 16; TEMP 36.6; O2SAT 97
--- OUTSIDE RECORDS SUMMARY | 2024-10-15 19:43 | XMS_ITS | Clinical Summary ---
Author Organization [facility] Facility Address [address] [place] [address] Care Team Providers Care Cpht Name Role Phone Unavailable Primary Care Provider Unavailabl e Social History Tobacco Use Types Packs/Day Years Used Date Smoking Tobacco: Never Assessed Sex and Gender Information Value Date Recorded Sex Assigned at Not on file Legal Sex Male 9:41 AM EST Gender Identity Not on file Sexual Orientation Not on file Plan of Treatment Health Maintenance Due Date Last Done Comments Hepatitis B Vaccine (1 of 3 - 19+ 3-dose series) 2012 Influenza Vaccine (#1) 2024 Pneumococcal Vaccine: Pediat rics (0 to 5 Years) and At-Risk Patients (6 to 64 Years) Aged Out No longer eligi ble based on patient's age to complete this topic Insurance [facility]
--- OUTSIDE RECORDS SUMMARY | 2024-10-15 19:43 | XMS_ITS | Encounter Summary ---
Author Organization [facility] Address [address] [place] [address] Care Team Providers Care Blasting Gang Miner Name Role Phone Unavailable Primary Care Provider Unavailabl e Reason for Visit * Reason Onset Date Comments emergency appt 08/09/2024 Encounter Details Date Type Department Care Team (Late st Contact Info) Description 08/09/2024 Telephone [facility] [address] [place] [address] Denise Gannon, DDS [address] [place], [place] [id number] emergency appt Social History Tobacco Use Types Packs/Day Years Used Date Smoking Tobacco: Never Assessed Sex and Gender Information Value Date Recorded Sex Assigned at Not on file Legal Sex Male 11:16 AM EDT Gender Identity Not on file Sexual Orientation Not on file documented as of this encounter Miscellaneous Notes * Telephone Encounter - An [facility] [place] - 08/09/2024 10:25 AM EST Patient called in for an emergency visit with pain and swelling. No emergency spots left available.Informed patient that he may go to the emergency room for assistance with the pain and swelling. Also informed he can call on Monday morning early first come first served for an emergency visit. Alsoadvised he may call throughout the day to see if any one has cancelled. Suggested he go to the emergency room DR documented in this encounter Plan of Treatment Not on file documented as of this encounter Visit Diagnoses Not on filedocumented in this encounter
--- OUTSIDE RECORDS SUMMARY | 2024-10-15 19:44 | XMS_ITS | Clinical Summary ---
Author Organization [employer] [facility] Address [address] [address] [facility] [address] [place] [address] Care Team Providers Care Orthopedics Teacher Name Role Phone Unavailable Primary Care Provider Unavailabl e Encounters Date Type Department Care Team Description 08/09/2024 Telephone [facility] ADULT DENTAL [address] [place] [address] Denise Gannon DDS emergency appt from Last 3 Months Social History Tobacco Use Types Packs/Day Years Used Date Smoking Tobacco: Never Assessed Sex and Gender Information Value Date Recorded Sex Assigned at Not on file Legal Sex Male 11:16 AM EDT Gender Identity Not on file Sexual Orientation Not on file Plan of Treatment Health Maintenance Due Date Last Done Comments Depression Screening 1993 Alcohol/Substance Use Screening 2005 Tobacco Screening 2005 Family Planning (PISQ) 2008 DTaP/Tdap/Td Vaccines (1 - Tdap) 2012 Hepatitis B Vaccines (1 of 3 - 19+ 3-dose series) 2012 COVID-19 Vaccine ( - 2023-2 5 season) 2024 Influenza Vaccine (#1) 2024 Zoster Vaccines (1 of 2) 2043 RSV Patients and Pa tients Aged 60 years or older (1 - 1-dose 75+ series) 2068 HIB Vaccines Aged Out No longer eligi ble based on patient's age to complete this topic HPV Vaccines Aged Out No longer eligi ble based on patient's age to complete this topic Hepatitis A Vaccines Aged Out No long er eligible based on patient's age to complete this topic IPV Vaccines Aged Out No longer eligi ble based on patient's age to complete this topic Meningococcal Vaccine Aged Out No aster lexii eligible based on patient's age to complete this topic Pneumococcal Vaccine: Pediat rics (0 to 5 Years) and At-Risk Patients (6 to 49) Years) Aged Out No longer eligible b ased on patient's age to complete this topic RSV under 20 months Aged Out No longe r eligible based on patient's age to complete this topic Rotavirus Vaccines Aged Out No longer eligible based on patient's age to complete this topic
== END 2024-10-15 16:53 | disposition home or self-care (01) ==
PROVIDERS: Emergency Provider Emergency Medicine; PCP Nurse Practitioner Family
DX: M25.461 Effusion, right knee (principal); M25.561 Pain in right knee
CPT/HCPCS: 73564; 99282; 99283

== ENCOUNTER → 2024-10-15 14:05 | Outpatient (BNV) | payer OTHER, SELFPAY | PROVIDERS: Visit Provider Radiology Diagnostic Radiology | DX: M25.561 Pain in right knee (principal) | CPT/HCPCS: 73564 ==

== ENCOUNTER 2024-10-30 23:26 | Emergency (ER) | payer OTHER, SELFPAY ==
[2024-10-30 23:34] VITALS: BP 138/76; PULSE 77; RESP 16; TEMP 36; O2SAT 97; BMI 25.1
[2024-10-31 00:33] LABS: Appearance Urine Clear; Color Urine Dark Yellow; Glucose Urine UA Negative (Negative); Leukocyte Esterase Urine Negative (Negative); Nitrite Urine Negative (Negative); Specific Gravity - Urine >= 1.030 (1.005-1.025); Urine Blood Negative (Negative); Urine Ketones Trace mg/dL (Negative); Urine Protein Trace mg/dL (Neg-Trace)
--- OUTSIDE RECORDS SUMMARY | 2024-10-31 01:13 | XMS_ITS | Clinical Summary ---
Author Organization [employer] Address [address] [place] [address] Care Team Providers Care Technical Training Instructor Name Role Phone Unavailable Primary Care Provider Unavailabl e Encounters Date Type Department Care Team Description 08/09/2024 Telephone [facility] ADULT DENTAL [address] [place] [address] Denise Gannon DDS emergency appt from Last [...]
--- OUTSIDE RECORDS SUMMARY | 2024-10-31 01:13 | XMS_ITS | Clinical Summary ---
Author Organization [facility] Facility Address [address] [place] [address] Care Team Providers Care Security Assurance Analyst Name Role Phone Unavailable Primary Care Provider [...] patient's age to complete this topic Insurance [facility]
--- NOTE | 2024-10-31 01:42 | ED_ITS ---
HPI - Male Genitourinary General Chief complaint: Urogenital-Male Stated complaint: STD test? Time Seen by Provider: 10/31/24 01:35 Source: patient Mode of arrival: ambulatory Limitations: no limitations History of Present Illness ED Provider: Dr. Mae Post HPI Narrative: Patient comes to the emergency room requesting to be tested for STDs. Patient states that he was possibly exposed to a partner with a sexually transmitted disease. Patient states that he is not symptomatic. Denies hematuria dysuria, denies penile discharge. Denies fever chills. Related Data Previous Rx's ?Medication ?Instructions ?Recorded fluticasone furoate 100 1 ea inhalation RDAILY #1 ea 07/09/22 mcg-vilanterol 25 mcg/dose inhalation powder (Breo Ellipta) sertraline 25 mg tablet 50 mg (2 x 25 mg) PO DAILY #30 tabs 09/23/22 [employer], OUD (Reset-O #1 ea 09/30/22 Digital Brandy (OUD)) buprenorphine 12 mg-naloxone 3 mg 1 film sublingual Q24H #7 ea 10/07/22 sublingual film (Suboxone) albuterol sulfate 2.5 mg/3 mL 2.5 mg (3 mL) inhalation Q4-6H PRN 10/23/22 (0.083 %) solution for nebulization shortness of breath or wheezing #180 mL albuterol sulfate 90 mcg/actuation 2 puff inhalation Q4-6H PRN 10/23/22 aerosol inhaler shortness of breath or wheezing #6.7 grams cyclobenzaprine 10 mg tablet 10 mg PO TID PRN muscle spasm #14 04/01/23 tabs ibuprofen 600 mg tablet 600 mg PO Q8H PRN pain #14 tabs 04/01/23 lidocaine 5 % topical patch 1 patch topical DAILY #15 ea 04/01/23 naproxen 500 mg tablet 500 mg PO BID PRN pain #20 tabs 04/29/23 albuterol sulfate 90 mcg/actuation 2 inh inhalation Q20M PRN 12/04/23 aerosol inhaler shortness of breath or wheezing #8.5 grams prednisone 20 mg tablet 40 mg (2 x 20 mg) PO DAILY 5 days 12/04/23 #10 tabs albuterol sulfate 90 mcg/actuation 2 puff inhalation Q4-6H PRN 12/16/23 aerosol inhaler (Ventolin HFA) shortness of breath or wheezing #8.5 grams prednisone 50 mg tablet 50 mg PO DAILY 4 days #4 tabs 12/16/23 albuterol sulfate 90 mcg/actuation 2 inh inhalation Q4-6H PRN 01/18/24 breath activated powder inhaler shortness of breath or wheezing #1 ea prednisone 20 mg tablet 40 mg (2 x 20 mg) PO DAILY 4 days 01/18/24 #8 tabs albuterol sulfate 90 mcg/actuation 2 puff inhalation Q6H PRN 06/12/24 aerosol inhaler shortness of breath or wheezing #8.5 grams prednisone 20 mg tablet 40 mg (2 x 20 mg) PO DAILY #10 tabs 06/12/24 albuterol sulfate 90 mcg/actuation 2 inh inhalation Q4-6H PRN 06/28/24 breath activated powder inhaler shortness of breath or wheezing #1 ea prednisone 20 mg tablet 40 mg (2 x 20 mg) PO DAILY #8 tabs 06/28/24 acetaminophen 500 mg tablet 500 - 1,000 mg (1 - 2 x 500 mg) PO 08/05/24 (Tylenol Extra Strength) Q6H PRN pain #30 tabs clindamycin HCl 300 mg capsule 300 mg PO TID 7 days #21 caps 08/05/24 ibuprofen 600 mg tablet 600 mg PO Q6H PRN pain #30 tabs 08/05/24 Allergies Allergy/AdvReac Type Severity Reaction Status Date / Time seafood Allergy Severe Anaphylaxis Verified 10/30/24 23:36 Penicillins [PENICILLINS] Allergy Intermediate RASH Verified 10/30/24 23:36 Review of Systems Review of Systems: Constitutional : No Weight loss, No Fever, No Chills, No Night Sweats, No Fatigue, No Malaise ENT/Mouth : No Hearing loss, No Ear Pain, No Nasal Congestion, No Sinus Pain, No Hoarseness, No sore throat, No Rhinorrhea, No Swallowing Difficulty Eyes: No Eye Pain, No Swelling, No Redness, No Foreign Body, No Discharge, No Vision Changes Cardiovascular : No Chest Pain, No SOB, No Dyspnea on Exertion, No Orthopnea, No Edema, No Palpitations Respiratory : No Cough, No Sputum, No Wheezing, No Smoke Exposure, No Dyspnea Gastrointestinal : No Nausea, No Vomiting, No Diarrhea, No Constipation, No abdominal Pain, No Hematochezia, No Melena Genitourinary : no irregular bleeding, No Dysuria, No Urinary Frequency, No Hematuria, No Urinary Incontinence, No Urgency, No Flank Pain, No Urinary Flow Changes, No Hesitancy Musculoskeletal : No joint pain, No Myalgias, No Joint Swelling Skin : No Skin Lesions, No rash Neuro : No Weakness, No Numbness, No Paresthesias, No Loss of Consciousness, No Dizziness, No Headache Psych : No Anxiety/Panic, No Depression, No SI/HI/AH/VH, No Social Issues, Heme/Lymph: No Bruising, No Bleeding,No Lymphadenopathy Endocrine : No Polyuria, No Polydipsia, No Temperature Intolerance [facility] Past Medical History Medical History Substance abuse Alcohol abuse Depression Opioid use disorder Asthma Social History Social History Household Members: Family Household Members Other:: Mom Housing: House Do you presently have visiting nurse or other home services: No Unable to assess alcohol history related to: Unknown Alcohol intake: former Patient Tobacco Use Status: Current everyday Tobacco user Tobacco use type: Cigarette Cigarette Packs Per Day: 1 Cigarettes Per Day: 20.0 e-Cigarette/Vaping Use: Currently Using Substance Use Type: Heroin Advance Directives: No Advance Directives Information Provided: Yes Do you have a plan to hurt others: No Plan service: No Current occupational status: employed Current occupation: right hand dominant Physical Exam Vital Signs: Vital Signs: Last Vital Signs Temp 96.8 F 10/30/24 23:34 Pulse 77 10/30/24 23:34 Resp 16 10/30/24 23:34 BP 138/76 10/30/24 23:34 Pulse Ox 97 10/30/24 23:34 O2 Del Method Room Air 10/30/24 23:34 BMI result Body Mass Index 25.1 Const: Other: Appearance: Alert. Oriented X3. No acute distress. Eyes: Pupils equal, round and reactive to light. ENT: Pharynx normal. Neck: Normal inspection. Neck supple. No lymph nodes noted. No crepitus CVS: Normal heart rate and rhythm. Pulses normal. Normal S1 and S2 Respiratory: No respiratory distress. Breath sounds normal. No Wheezing. No rales Abdomen: Soft and nontender. No rigidity. No distention. Skin: Skin warm and dry. Normal skin color. Normal skin turgor. Extremities: No lower extremity edema. No Lacerations. No Rash Neuro: Oriented X 3. No motor deficit. No sensory deficit. Moving all extremities. No slurred speech. CN 2 through 12 grossly intact Psych: calm, cooperative, normal affect Medical Decision Making Medical Decision Making [facility] Narrative: Urinalysis is negative for UTI. Gonorrhea and chlamydia will not be back any time soon. Discussed with the patient that we can empirically treat him for STDs. patient states that he prefers to go home and be called if his urine is positive for STDs. Lab Data [facility] Lab Attestation statement: I reviewed the patient's lab results. Labs: Lab Results 10/31/24 Range/Units 00:28 Urine Color Dark Yellow Urine Appearance Clear Urine pH 6.0 (5.0-9.0) Ur Specific [place] >= 1.030 H (1.005-1.025) Urine Protein Trace (Neg-Trace) mg/dL Urine Glucose (UA) Negative (Negative) mg/dL Urine Ketones Trace (Negative) mg/dL Urine Blood Negative (Negative) Urine Nitrite Negative (Negative) Ur Leukocyte Esterase Negative (Negative) Discharge Plan Discharge Clinical Impression: Exposure to STD Patient Disposition: Home, Self-Care Instructions: Safe Sex Practices (ED) Additional Instructions: if you test positive for either gonorrhea or chlamydia, you will receive a phone call and antibiotics will be sent to your pharmacy. Please follow-up with your primary care physician tomorrow. If you have any worsening or new symptoms, please return to the emergency room or call 911 Prescriptions: No Action fluticasone furoate-vilanterol [Breo Ellipta] 100-25 mcg/dose Blister With Device 1 ea inhalation RDAILY Qty: 1 0RF albuterol sulfate 90 mcg/actuation HFA aerosol inhaler 2 puff inhalation Q4-6H PRN (Reason: shortness of breath or wheezing) Qty: 6.7 3RF Rx Instructions: May dispense medication equivalent accepted by patient's insurance albuterol sulfate 2.5 mg /3 mL (0.083 %) solution for nebulization 2.5 mg inhalation Q4-6H PRN (Reason: shortness of breath or wheezing) Qty: 180 2RF Rx Instructions: May dispense medication equivalent accepted by patient's insurance cyclobenzaprine 10 mg tablet 10 mg PO TID PRN (Reason: muscle spasm) Qty: 14 0RF ibuprofen 600 mg tablet 600 mg PO Q8H PRN (Reason: pain) Qty: 14 0RF lidocaine 5 % adhesive patch,medicated 1 patch topical DAILY Qty: 15 0RF Rx Instructions: leave on most painful area for up to 12 hrs prednisone 20 mg tablet 40 mg PO DAILY Qty: 10 0RF albuterol sulfate 90 mcg/actuation HFA aerosol inhaler 2 puff inhalation Q6H PRN (Reason: shortness of breath or wheezing) Qty: 8.5 0RF prednisone 20 mg tablet 40 mg PO DAILY Qty: 8 0RF albuterol sulfate 90 mcg/actuation aerosol powdr breath activated 2 inh inhalation Q4-6H PRN (Reason: shortness of breath or wheezing) Qty: 1 0RF naproxen 500 mg tablet 500 mg PO BID PRN (Reason: pain) Qty: 20 0RF albuterol sulfate 90 mcg/actuation HFA aerosol inhaler 2 inh inhalation Q20M PRN (Reason: shortness of breath or wheezing) Qty: 8.5 0RF prednisone 20 mg tablet 40 mg PO DAILY 5 Days Qty: 10 0RF albuterol sulfate [Ventolin HFA] 90 mcg/actuation HFA aerosol inhaler 2 puff inhalation Q4-6H PRN (Reason: shortness of breath or wheezing) Qty: 8.5 1RF prednisone 50 mg tablet 50 mg PO DAILY 4 Days Qty: 4 0RF albuterol sulfate 90 mcg/actuation aerosol powdr breath activated 2 inh inhalation Q4-6H PRN (Reason: shortness of breath or wheezing) Qty: 1 0RF prednisone 20 mg tablet 40 mg PO DAILY 4 Days Qty: 8 0RF clindamycin HCl 300 mg capsule 300 mg PO TID 7 Days Qty: 21 0RF ibuprofen 600 mg tablet 600 mg PO Q6H PRN (Reason: pain) Qty: 30 0RF acetaminophen [Tylenol Extra Strength] 500 mg tablet 500 - 1,000 mg PO Q6H PRN (Reason: pain) Qty: 30 0RF sertraline 25 mg tablet 50 mg PO DAILY Qty: 30 0RF (DME) Reset-O Digital Brandy (OUD) Misc See Rx Instructions .MEDSUPPLY Qty: 1 3RF Rx Instructions: As directed (3-4 times a week) 84 days buprenorphine-naloxone [Suboxone] 12-3 mg film 1 film sublingual Q24H Qty: 7 0RF Print Language: Malian
[2024-10-31 05:24] LABS: CT PCR NOT DETECTED (Not Detect.); NG PCR NOT DETECTED (Not Detect.)
== END 2024-10-31 01:52 | disposition home or self-care (01) ==
PROVIDERS: Emergency Provider Emergency Medicine; PCP Nurse Practitioner Family
DX: Z20.2 Contact with and (suspected) exposure to infections with a predominantly sexual mode of transmission (principal); F17.210 Nicotine dependence, cigarettes, uncomplicated; Z79.899 Other long term (current) drug therapy
CPT/HCPCS: 81003; 87491; 87591; 99282

== ENCOUNTER 2024-11-03 15:02 | Emergency (ER) | payer OTHER, SELFPAY ==
--- NOTE | ~2024-11-03 | XR_ITS ---
CLINICAL HISTORY: cough, wheezing 2 view chest x-ray Comparison: CR/SR - XR CHEST 2V - 06/28/24 13:37 EST Findings: The lungs are clear. Heart size is normal. No acute fracture. IMPRESSION: 1. No acute findings. This document has been electronically signed by: Cathie Lira MD on 11/03/2024 17:24:34
[2024-11-03 15:07] VITALS: BP 121/73; PULSE 75; RESP 18; TEMP 36.6; O2SAT 96; BMI 25.8
--- NOTE | 2024-11-03 15:27 | ED_ITS ---
HPI - SOB/Dyspnea General Chief Complaint: Dyspnea Stated Complaint: Asthma Time Seen by Provider: 11/03/24 15:37 Source: patient Mode of arrival: ambulatory Limitations: no limitations History of Present Illness ED Provider: Sandrine Hawley PA-C HPI Narrative: Patient is a 29 year old male with a past medical history of asthma who presents to the ED today with complaints of shortness of breath. He states he typically uses his albuterol inhaler daily for his asthma but has recently had an increase in his SOB about 2 days ago. He endorses feeling sweaty, chills, runny nose, and a cough that also began 2 days ago. States he ran out of his albuterol inhaler. He denies chest pain, abdominal pain, nausea, vomiting, diarrhea, constipation. MD elicited complaint: shortness of breath Pertinent past history: asthma Onset (ago): day(s) Context: recent illness Timing: constant Severity: mild Exacerbating factors: exertion Relieving factors: rest and medication (Albuterol) Known history of: asthma Associated symptoms: fever, cough and wheezing Related Data Previous Rx's ?Medication ?Instructions ?Recorded fluticasone furoate 100 1 ea inhalation RDAILY #1 ea 07/09/22 mcg-vilanterol 25 mcg/dose inhalation powder (Breo Ellipta) sertraline 25 mg tablet 50 mg (2 x 25 mg) PO DAILY #30 tabs 09/23/22 Democravise therapeutics, OUD (Reset-O #1 ea 09/30/22 Digital Brandy (OUD)) buprenorphine 12 mg-naloxone 3 mg 1 film sublingual Q24H #7 ea 10/07/22 sublingual film (Suboxone) albuterol sulfate 2.5 mg/3 mL 2.5 mg (3 mL) inhalation Q4-6H PRN 10/23/22 (0.083 %) solution for nebulization shortness of breath or wheezing #180 mL albuterol sulfate 90 mcg/actuation 2 puff inhalation Q4-6H PRN 10/23/22 aerosol inhaler shortness of breath or wheezing #6.7 grams cyclobenzaprine 10 mg tablet 10 mg PO TID PRN muscle spasm #14 04/01/23 tabs ibuprofen 600 mg tablet 600 mg PO Q8H PRN pain #14 tabs 04/01/23 lidocaine 5 % topical patch 1 patch topical DAILY #15 ea 04/01/23 naproxen 500 mg tablet 500 mg PO BID PRN pain #20 tabs 04/29/23 albuterol sulfate 90 mcg/actuation 2 inh inhalation Q20M PRN 12/04/23 aerosol inhaler shortness of breath or wheezing #8.5 grams prednisone 20 mg tablet 40 mg (2 x 20 mg) PO DAILY 5 days 12/04/23 #10 tabs albuterol sulfate 90 mcg/actuation 2 puff inhalation Q4-6H PRN 12/16/23 aerosol inhaler (Ventolin HFA) shortness of breath or wheezing #8.5 grams prednisone 50 mg tablet 50 mg PO DAILY 4 days #4 tabs 12/16/23 albuterol sulfate 90 mcg/actuation 2 inh inhalation Q4-6H PRN 01/18/24 breath activated powder inhaler shortness of breath or wheezing #1 ea prednisone 20 mg tablet 40 mg (2 x 20 mg) PO DAILY 4 days 01/18/24 #8 tabs albuterol sulfate 90 mcg/actuation 2 puff inhalation Q6H PRN 06/12/24 aerosol inhaler shortness of breath or wheezing #8.5 grams prednisone 20 mg tablet 40 mg (2 x 20 mg) PO DAILY #10 tabs 06/12/24 albuterol sulfate 90 mcg/actuation 2 inh inhalation Q4-6H PRN 06/28/24 breath activated powder inhaler shortness of breath or wheezing #1 ea prednisone 20 mg tablet 40 mg (2 x 20 mg) PO DAILY #8 tabs 06/28/24 acetaminophen 500 mg tablet 500 - 1,000 mg (1 - 2 x 500 mg) PO 08/05/24 (Tylenol Extra Strength) Q6H PRN pain #30 tabs clindamycin HCl 300 mg capsule 300 mg PO TID 7 days #21 caps 08/05/24 ibuprofen 600 mg tablet 600 mg PO Q6H PRN pain #30 tabs 08/05/24 albuterol sulfate 90 mcg/actuation 1 puff inhalation QID #8.5 grams 11/03/24 aerosol inhaler prednisone 20 mg tablet See Rx Instructions .Route 11/03/24 .COMPLEX 12 days #26 tabs Allergies Allergy/AdvReac Type Severity Reaction Status Date / Time seafood Allergy Severe Anaphylaxis Verified 11/03/24 15:11 Penicillins [PENICILLINS] Allergy Intermediate RASH Verified 11/03/24 15:11 Review of Systems Constitutional: Constitutional: Reports no additional constitutional complaints, Reports chills, Reports fever(s) and Denies night sweats Eyes: Eyes: Reports no additional eye complaints, Denies blurry vision, Denies change in vision, Denies diplopia, Denies eye discharge, Denies loss of vision and Denies eye pain ENT: Denies dizziness Cardiovascular: Cardiovascular: Reports no additional cardiovascular complaints, Denies chest pain, Denies lightheadedness, Denies Loss of Consciousness and Reports dyspnea Respiratory: Respiratory: Reports no additional respiratory complaints, Reports cough and Reports dyspnea Gastrointestinal: Gastrointestinal: Reports no additional gastrointestinal complaints, Denies abdominal pain, Denies melena, Denies hematochezia, Denies change in bowel habits and Denies change in stool character Genitourinary: Genitourinary: Reports no additional male genitourinary complaints, Denies hematuria, Denies oliguria, Denies difficulty urinating, Denies dysuria, Denies urinary frequency, Denies urinary hesitancy, Denies urinary incontinence and Denies urinary urgency Musculoskeletal: Musculoskeletal: Reports no additional musculoskeletal complaints, Denies numbness and Denies tingling Neurologic: Denies dizziness, Denies loss of vision, Denies numbness and Denies tingling Psychiatric: Psychiatric: Reports no additional psychiatric complaints Endocrine: Endocrine: Reports no additional endocrine complaints Hematologic/Lymphatic: Hematologic/Lymphatic: Reports no additional hematologic/lymphatic complaints Allergic/Immunologic: Allergic/Immunologic: Reports no additional allergic/immunologic complaints [facility] Past Medical History Attestation statement: The following information was validated with the patient. Source: old records reviewed and nursing notes reviewed Medical History Substance abuse Alcohol abuse Depression Opioid use disorder Asthma Social History Social History Household Members: Family Household Members Other:: Mom Housing: House Do you presently have visiting nurse or other home services: No Unable to assess alcohol history related to: Unknown Alcohol intake: former Patient Tobacco Use Status: Current everyday Tobacco user Tobacco use type: Cigarette Cigarette Packs Per Day: 1 Cigarettes Per Day: 20.0 e-Cigarette/Vaping Use: Currently Using Substance Use Type: Heroin Advance Directives: No Advance Directives Information Provided: Yes service: No Current occupational status: employed Current occupation: right hand dominant Physical Exam Vital Signs: Vital Signs: Last Vital Signs Temp 97.9 F 11/03/24 17:48 Pulse 69 11/03/24 17:48 Resp 18 11/03/24 17:48 BP 132/79 11/03/24 17:48 Pulse Ox 98 11/03/24 17:48 O2 Del Method Room Air 11/03/24 17:48 BMI result Body Mass Index 25.8 Const: General: cooperative, no acute distress, alert and awake Nutritional Appearance: well nourished Orientation/consciousness: patient oriented x3 Limitations: no limitations HEENT: Head: Yes normal to inspection and Yes atraumatic Ears: hearing grossly normal bilaterally and external ears normal General nose exam: Normal external nose present, no nasal discharge noted and no epistaxis Face and sinus: Yes normal facial exam, No abrasion and No laceration Mouth: Normal oral and palatal mucosa present, no drooling and no muffled voice Eyes: General: appearance normal, both eyes and all related structures Periorbital: periorbital findings normal Eyelids: Yes eyelids normal Conjunctivae: conjunctivae normal Pupils: Equal, round and reactive pupils present EOM: EOMs intact bilaterally Neck: Neck: Yes normal visual inspection, Yes full ROM and Yes no lymphadenopathy Chest: Chest palpation & inspection: normal inspection of the chest Resp: Effort & Inspection: normal respiratory effort and able to speak in complete sentences Auscultation: wheezes Cardio: Rate: regular rate Rhythm: regular rhythm Heart sounds: S1 normal heart sound present, S2 normal heart sound present, no gallops, no murmurs and no rubs GI: Inspection: Yes normal to inspection Neuro: General: patient oriented x3, moves all extremities and CN's II-XI intact bilaterally Cranial nerves: Yes Equal, round and reactive pupils present Cognition (Neuro): normal cognition Extrem: General: Yes normal to inspection, Yes full ROM and Yes capillary refill normal Psych: Appearance: grossly normal Mental Status: mental status grossly normal Affect: normal affect Attitude: cooperative Thought process: Normal thought process present Thought content: Normal thought content present Insight: Good insight present (Psych) Medications Administered Discontinued Medications Generic Name Dose Route Start Last Admin Trade Name Freq PRN Reason Stop Dose Admin Albuterol Sulfate 2.5 mg/ 0 mg 11/03/24 16:07 11/03/24 16:12 Albuterol/Ipratropium 3 ml INHALE 11/03/24 16:08 5 dose ONCE ONE Administration Methylprednisolone Sodium Succinate 60 mg 11/03/24 15:38 11/03/24 15:46 Methylprednisolone Sod Succ 125 Mg/2 Ml Vial IM 11/03/24 15:39 60 mg ONCE ONE Administration Medical Decision Making Medical Decision Making [facility] Narrative: Patient is a 29 year old assigned male at with a history of asthma presenting to the emergency department today with a cough and wheezing. Patient's physical exam was as noted in the physical exam portion of this note. Patient's chest x-ray showed no acute process. I explained my physical exam findings as well as all test results to the patient. I answered all questions asked by the patient. Patient received solu-medrol and a breathing treatment which, upon re-evaluation, he stated it helped his symptoms significantly. I stressed the importance of the patient taking his medication as directed (either prescribed or as the over the counter packaging recommends). I stressed the importance of the patient following up with his primary care provider. I stressed the importance of the patient returning to the emergency department immediately if his symptoms were to worsen or if he were to develop any dizziness, shortness of breath, difficulty breathing, chest pain, blurry vision, loss of vision, nausea, vomiting, abdominal pain, fever, chills, back pain, or any other complaints. Patient verbalized agreement and understanding with this treatment plan and discharge. Differential Diagnosis Differential Diagnoses: The differential diagnosis associated with the presentation includes Asthma exacerbation Admission/Observation Consideration of admission/observation: Escalation of care including admission/observation considered Patient would have been admitted to the hospital had his work up had any findings where hospital admission was appropriate and his clinical presentation warranted hospital admission. Lab Data [facility] Lab Attestation statement: I reviewed the patient's lab results. My interpretation of these studies and their corresponding values is that they are grossly normal. Labs: Lab Results 11/03/24 Range/Units 15:57 Influenza Type A (PCR) NEGATIVE (Negative) Influenza Type B (PCR) NEGATIVE (Negative) RSV RNA Qual (PCR) NEGATIVE (Negative) SARS-CoV-2 RNA (RT-PCR) NEGATIVE (Negative) Independent Interpretation I performed an independent interpretation of an: Plain X-Ray Interpretation: My interpretation is in agreement with the radiologist's impression of this imaging study. CLINICAL HISTORY: cough, wheezing 2 view chest x-ray Comparison: CR/SR - XR CHEST 2V - 06/28/24 13:37 EST Findings: The lungs are clear. Heart size is normal. No acute fracture. IMPRESSION: 1. No acute findings. This document has been electronically signed by: Cathie Lira MD on 11/03/2024 17:24:34 Dictated By: Cathie Lira MD Signed By: Electronically signed by Cathie Lira MD 11/03/24 [id number] Radiology Impression Discussion of test interpretation with radiology: I have reviewed the radiologist's reading. Discharge Plan Discharge Clinical Impression: Asthma with acute exacerbation Patient Disposition: Home, Self-Care Instructions: Asthma (DC) Additional Instructions: Please consider the cessation of smoking any products. I submitted a prescription for an albuterol inhaler that is AEROSOL and NOT powd er. Follow up with your primary care provider. Return to the emergency department immediately if your symptoms worsen or if you develop any numbness, tingling, dizziness, shortness of breath, difficulty breathing, chest pain, blurry vision, loss of vision, nausea, vomiting, abdominal pain, fever, chills, back pain, or any other complaints. Please see the information below about our Patient Portal. If you are not yet enrolled in the [facility] Patient Portal, you will receive an enrollment email invitation following your visit to any [facility] setting. You may also self-enroll in the Patient Portal by visiting our website: [email or web address] The following information is required to access the Patient Portal: - Your [facility] Medical Record Number - Your personal home email address (must match what is in your electronic medical record, Registration staff can assist with this) - Name - Date of Capabilities of the Patient Portal: - Message some providers - View upcoming appointments - Access your health summary, medical history, and visit history - View current conditions and allergies - View procedure and lab results - View your medications, including guidelines, side effects, and precautions - Complete pre-appointment questionnaires requested by your provider - Ready summary reports of your office visits and procedures To access the Patient Portal Mobile Brandy, follow these directions: - Search [employer] in the Brandy Store or Google Play Store - Download the Brandy - Search for [facility] - Enter your login/password Prescriptions: New albuterol sulfate 90 mcg/actuation HFA aerosol inhaler 1 puff inhalation QID Qty: 8.5 0RF prednisone 20 mg tablet See Rx Instructions .ROUTE .COMPLEX 12 Days Qty: 26 0RF Rx Instructions: 20 mg orally, Take 3 tablets for 5 days THEN; Take 2 tablets for 4 days THEN; Take 1 tablet for 3 days No Action fluticasone furoate-vilanterol [Breo Ellipta] 100-25 mcg/dose Blister With Device 1 ea inhalation RDAILY Qty: 1 0RF albuterol sulfate 90 mcg/actuation HFA aerosol inhaler 2 puff inhalation Q4-6H PRN (Reason: shortness of breath or wheezing) Qty: 6.7 3RF Rx Instructions: May dispense medication equivalent accepted by patient's insurance albuterol sulfate 2.5 mg /3 mL (0.083 %) solution for nebulization 2.5 mg inhalation Q4-6H PRN (Reason: shortness of breath or wheezing) Qty: 180 2RF Rx Instructions: May dispense medication equivalent accepted by patient's insurance cyclobenzaprine 10 mg tablet 10 mg PO TID PRN (Reason: muscle spasm) Qty: 14 0RF ibuprofen 600 mg tablet 600 mg PO Q8H PRN (Reason: pain) Qty: 14 0RF lidocaine 5 % adhesive patch,medicated 1 patch topical DAILY Qty: 15 0RF Rx Instructions: leave on most painful area for up to 12 hrs prednisone 20 mg tablet 40 mg PO DAILY Qty: 10 0RF albuterol sulfate 90 mcg/actuation HFA aerosol inhaler 2 puff inhalation Q6H PRN (Reason: shortness of breath or wheezing) Qty: 8.5 0RF prednisone 20 mg tablet 40 mg PO DAILY Qty: 8 0RF albuterol sulfate 90 mcg/actuation aerosol powdr breath activated 2 inh inhalation Q4-6H PRN (Reason: shortness of breath or wheezing) Qty: 1 0RF naproxen 500 mg tablet 500 mg PO BID PRN (Reason: pain) Qty: 20 0RF albuterol sulfate 90 mcg/actuation HFA aerosol inhaler 2 inh inhalation Q20M PRN (Reason: shortness of breath or wheezing) Qty: 8.5 0RF prednisone 20 mg tablet 40 mg PO DAILY 5 Days Qty: 10 0RF albuterol sulfate [Ventolin HFA] 90 mcg/actuation HFA aerosol inhaler 2 puff inhalation Q4-6H PRN (Reason: shortness of breath or wheezing) Qty: 8.5 1RF prednisone 50 mg tablet 50 mg PO DAILY 4 Days Qty: 4 0RF albuterol sulfate 90 mcg/actuation aerosol powdr breath activated 2 inh inhalation Q4-6H PRN (Reason: shortness of breath or wheezing) Qty: 1 0RF prednisone 20 mg tablet 40 mg PO DAILY 4 Days Qty: 8 0RF clindamycin HCl 300 mg capsule 300 mg PO TID 7 Days Qty: 21 0RF ibuprofen 600 mg tablet 600 mg PO Q6H PRN (Reason: pain) Qty: 30 0RF acetaminophen [Tylenol Extra Strength] 500 mg tablet 500 - 1,000 mg PO Q6H PRN (Reason: pain) Qty: 30 0RF sertraline 25 mg tablet 50 mg PO DAILY Qty: 30 0RF (DME) Reset-O Digital Brandy (OUD) Misc See Rx Instructions .MEDSUPPLY Qty: 1 3RF Rx Instructions: As directed (3-4 times a week) 84 days buprenorphine-naloxone [Suboxone] 12-3 mg film 1 film sublingual Q24H Qty: 7 0RF Referrals: Nikky Ortiz [employer] [Primary Care Provider] - Interventions: ED Discharge Assessment Last Done: 11/03/24 17:48 Discharge Date/Time: 11/03/24 17:49 Print Language: Libyan
[2024-11-03] MEDS: methylPREDNISolone Sod Succ 125 MG/2 ML VIAL 60 MG IM (15:46)
[2024-11-03 16:08] VITALS: PULSE 57; RESP 16; O2SAT 95
[2024-11-03] MEDS: Albuterol Sulfate 2.5 MG, Albuterol/Iprat 2.5/0.5MG 3 ML 3 ML INHALE (16:12)
[2024-11-03 17:16] LABS: Influenza A PCR NEGATIVE (Negative); Influenza B PCR NEGATIVE (Negative); Resp Syncy Virus RNA Qual PCR NEGATIVE (Negative); SARS COV2 PCR INHOUSE NEGATIVE (Negative)
[2024-11-03 17:48] VITALS: BP 132/79; PULSE 69; RESP 18; TEMP 36.6; O2SAT 98
== END 2024-11-03 17:49 | disposition home or self-care (01) ==
PROVIDERS: Physician Assistant; Emergency Provider Emergency Medicine; PCP Nurse Practitioner Family
DX: J45.901 Unspecified asthma with (acute) exacerbation (principal); R06.02 Shortness of breath; Z03.818 Encounter for observation for suspected exposure to other biological agents ruled out; Z79.899 Other long term (current) drug therapy; F17.210 Nicotine dependence, cigarettes, uncomplicated
CPT/HCPCS: 0241U; 71046; 94640; 99283; 99284; J2919

== ENCOUNTER → 2024-11-03 15:12 | Outpatient (BNV) | payer OTHER, SELFPAY | PROVIDERS: Emergency Provider Emergency Medicine; PCP Nurse Practitioner Family; Visit Provider Specialist | DX: R05.9 Cough, unspecified (principal); R06.2 Wheezing | CPT/HCPCS: 71046 ==

== ENCOUNTER 2024-11-29 23:04 | Emergency (ER) | payer OTHER, SELFPAY ==
[2024-11-29 23:14] VITALS: BP 114/70; PULSE 73; RESP 16; TEMP 36.9; O2SAT 97; BMI 25.0
--- OUTSIDE RECORDS SUMMARY | 2024-11-29 23:28 | XMS_ITS | Clinical Summary ---
Author Organization [employer] Address [address] [place] [address] Care Team Providers Care Child & Adolescent Psychiatrist Name Role Phone Unavailable Primary Care Provider [...]
--- OUTSIDE RECORDS SUMMARY | 2024-11-29 23:28 | XMS_ITS | Clinical Summary ---
Author Organization [facility] Address [address] [place] [address] Care Team Providers Care Delivery Aide Name Role Phone Unavailable Primary Care Provider [...] - 19+ 3-dose series) 2012 Influenza Vaccine (Season Ended) 2025 Pneumococcal Vaccine: Peds ( 0 to 5 Years) and At-Risk Patients (6 to 49 Years) Aged Out No longer eligible b ased on patient's age to complete this topic Insurance [facility]
--- NOTE | 2024-11-29 23:41 | ED_ITS ---
HPI - General Adult General Chief complaint: General Medical Stated complaint: left armpit pulsates/wants std check Time Seen by Provider: 11/29/24 23:41 Source: patient Mode of arrival: ambulatory Limitations: no limitations History of Present Illness ED Provider: HPI narrative: Patient with no cardiac history does have history of substance abuse anxiety comes here as since last night having sharp pain in the chest and in the left axilla which is sharp lasting only for few sec also patient want to be sure about his STI status multiple complaints Related Data Previous Rx's ?Medication ?Instructions ?Recorded fluticasone furoate 100 1 ea inhalation RDAILY #1 ea 07/09/22 mcg-vilanterol 25 mcg/dose inhalation powder (Breo Ellipta) sertraline 25 mg tablet 50 mg (2 x 25 mg) PO DAILY #30 tabs 09/23/22 digital therapeutics, OUD (Reset-O #1 ea 09/30/22 Digital Brandy (OUD)) buprenorphine 12 mg-naloxone 3 mg 1 film sublingual Q24H #7 ea 10/07/22 sublingual film (Suboxone) albuterol sulfate 2.5 mg/3 mL 2.5 mg (3 mL) inhalation Q4-6H PRN 10/23/22 (0.083 %) solution for nebulization shortness of breath or wheezing #180 mL albuterol sulfate 90 mcg/actuation 2 puff inhalation Q4-6H PRN 10/23/22 aerosol inhaler shortness of breath or wheezing #6.7 grams cyclobenzaprine 10 mg tablet 10 mg PO TID PRN muscle spasm #14 04/01/23 tabs ibuprofen 600 mg tablet 600 mg PO Q8H PRN pain #14 tabs 04/01/23 lidocaine 5 % topical patch 1 patch topical DAILY #15 ea 04/01/23 naproxen 500 mg tablet 500 mg PO BID PRN pain #20 tabs 04/29/23 albuterol sulfate 90 mcg/actuation 2 inh inhalation Q20M PRN 12/04/23 aerosol inhaler shortness of breath or wheezing #8.5 grams prednisone 20 mg tablet 40 mg (2 x 20 mg) PO DAILY 5 days 12/04/23 #10 tabs albuterol sulfate 90 mcg/actuation 2 puff inhalation Q4-6H PRN 12/16/23 aerosol inhaler (Ventolin HFA) shortness of breath or wheezing #8.5 grams prednisone 50 mg tablet 50 mg PO DAILY 4 days #4 tabs 12/16/23 albuterol sulfate 90 mcg/actuation 2 inh inhalation Q4-6H PRN 01/18/24 breath activated powder inhaler shortness of breath or wheezing #1 ea prednisone 20 mg tablet 40 mg (2 x 20 mg) PO DAILY 4 days 01/18/24 #8 tabs albuterol sulfate 90 mcg/actuation 2 puff inhalation Q6H PRN 06/12/24 aerosol inhaler shortness of breath or wheezing #8.5 grams prednisone 20 mg tablet 40 mg (2 x 20 mg) PO DAILY #10 tabs 06/12/24 albuterol sulfate 90 mcg/actuation 2 inh inhalation Q4-6H PRN 06/28/24 breath activated powder inhaler shortness of breath or wheezing #1 ea prednisone 20 mg tablet 40 mg (2 x 20 mg) PO DAILY #8 tabs 06/28/24 acetaminophen 500 mg tablet 500 - 1,000 mg (1 - 2 x 500 mg) PO 08/05/24 (Tylenol Extra Strength) Q6H PRN pain #30 tabs clindamycin HCl 300 mg capsule 300 mg PO TID 7 days #21 caps 08/05/24 ibuprofen 600 mg tablet 600 mg PO Q6H PRN pain #30 tabs 08/05/24 albuterol sulfate 90 mcg/actuation 1 puff inhalation QID #8.5 grams 11/03/24 aerosol inhaler prednisone 20 mg tablet See Rx Instructions .Route 11/03/24 .COMPLEX 12 days #26 tabs Allergies Allergy/AdvReac Type Severity Reaction Status Date / Time seafood Allergy Severe Anaphylaxis Verified 11/29/24 23:16 Penicillins [PENICILLINS] Allergy Intermediate RASH Verified 11/29/24 23:16 Review of Systems Review of Systems: Yes all other systems are reviewed and are negative PMFSH Past Medical History Medical History Substance abuse Alcohol abuse Depression Opioid use disorder Asthma Social History Social History Household Members: Family Household Members Other:: Mom Housing: House Do you presently have visiting nurse or other home services: No Unable to assess alcohol history related to: Unknown Alcohol intake: former Patient Tobacco Use Status: Current everyday Tobacco user Tobacco use type: Cigarette Cigarette Packs Per Day: 1 Cigarettes Per Day: 20.0 e-Cigarette/Vaping Use: Currently Using Substance Use Type: Heroin Advance Directives: No Advance Directives Information Provided: Yes Do you have a plan to hurt others: No Plan service: No Current occupational status: employed Current occupation: right hand dominant Physical Exam ED Vital Signs: Vital Signs - 24 hr 11/29/24 23:14 Temperature 98.4 F Pulse Rate 73 Respiratory Rate 16 Blood Pressure 114/70 Pulse Oximetry 97 Oxygen Delivery Method Room Air BMI result Body Mass Index 25.0 Appearance: Alert. Oriented X3. No acute distress. Anxious Eyes: No pallor or icterus ENT: Pharynx normal. Oral Mucosa moist Neck: Normal inspection. Neck supple. CVS: Normal heart rate and rhythm. Pulses normal. Respiratory: No respiratory distress. Equal air entry bilateral, no wheezing/rales/rhonchi Abdomen: Soft and nontender. Bowel sounds are present, no mass palpable, no CVA tenderness Skin: Skin warm and dry. Normal skin color. Normal skin turgor. Extremities: No lower extremity edema. No calf tenderness Neuro: Oriented X 3. Medical Decision Making Medical Decision Making MDM Narrative: Patient has atypical left chest pain EKG normal will discharge patient home advised to follow up with PCP Independent Interpretation I performed an independent interpretation of an: EKG Interpretation: Normal sinus rhythm heart rate 65 beats per minute normal intervals normal axis no acute ST-T changes no acute ischemia Discharge Plan Discharge Clinical Impression: Atypical chest pain Patient Disposition: Home, Self-Care Instructions: Noncardiac Chest Pain (ED) Additional Instructions: Your chest pain is not from the heart likely anxiety/musculoskeletal Follow with your PCP Prescriptions: No Action fluticasone furoate-vilanterol [Breo Ellipta] 100-25 mcg/dose Blister With Device 1 ea inhalation RDAILY Qty: 1 0RF albuterol sulfate 90 mcg/actuation HFA aerosol inhaler 2 puff inhalation Q4-6H PRN (Reason: shortness of breath or wheezing) Qty: 6.7 3RF Rx Instructions: May dispense medication equivalent accepted by patient's insurance albuterol sulfate 2.5 mg /3 mL (0.083 %) solution for nebulization 2.5 mg inhalation Q4-6H PRN (Reason: shortness of breath or wheezing) Qty: 180 2RF Rx Instructions: May dispense medication equivalent accepted by patient's insurance cyclobenzaprine 10 mg tablet 10 mg PO TID PRN (Reason: muscle spasm) Qty: 14 0RF ibuprofen 600 mg tablet 600 mg PO Q8H PRN (Reason: pain) Qty: 14 0RF lidocaine 5 % adhesive patch,medicated 1 patch topical DAILY Qty: 15 0RF Rx Instructions: leave on most painful area for up to 12 hrs prednisone 20 mg tablet 40 mg PO DAILY Qty: 10 0RF albuterol sulfate 90 mcg/actuation HFA aerosol inhaler 2 puff inhalation Q6H PRN (Reason: shortness of breath or wheezing) Qty: 8.5 0RF prednisone 20 mg tablet 40 mg PO DAILY Qty: 8 0RF albuterol sulfate 90 mcg/actuation aerosol powdr breath activated 2 inh inhalation Q4-6H PRN (Reason: shortness of breath or wheezing) Qty: 1 0RF albuterol sulfate 90 mcg/actuation HFA aerosol inhaler 1 puff inhalation QID Qty: 8.5 0RF prednisone 20 mg tablet See Rx Instructions .ROUTE .COMPLEX 12 Days Qty: 26 0RF Rx Instructions: 20 mg orally, Take 3 tablets for 5 days THEN; Take 2 tablets for 4 days THEN; Take 1 tablet for 3 days naproxen 500 mg tablet 500 mg PO BID PRN (Reason: pain) Qty: 20 0RF albuterol sulfate 90 mcg/actuation HFA aerosol inhaler 2 inh inhalation Q20M PRN (Reason: shortness of breath or wheezing) Qty: 8.5 0RF prednisone 20 mg tablet 40 mg PO DAILY 5 Days Qty: 10 0RF albuterol sulfate [Ventolin HFA] 90 mcg/actuation HFA aerosol inhaler 2 puff inhalation Q4-6H PRN (Reason: shortness of breath or wheezing) Qty: 8.5 1RF prednisone 50 mg tablet 50 mg PO DAILY 4 Days Qty: 4 0RF albuterol sulfate 90 mcg/actuation aerosol powdr breath activated 2 inh inhalation Q4-6H PRN (Reason: shortness of breath or wheezing) Qty: 1 0RF prednisone 20 mg tablet 40 mg PO DAILY 4 Days Qty: 8 0RF clindamycin HCl 300 mg capsule 300 mg PO TID 7 Days Qty: 21 0RF ibuprofen 600 mg tablet 600 mg PO Q6H PRN (Reason: pain) Qty: 30 0RF acetaminophen [Tylenol Extra Strength] 500 mg tablet 500 - 1,000 mg PO Q6H PRN (Reason: pain) Qty: 30 0RF sertraline 25 mg tablet 50 mg PO DAILY Qty: 30 0RF (DME) Reset-O Digital Brandy (OUD) Misc See Rx Instructions .MEDSUPPLY Qty: 1 3RF Rx Instructions: As directed (3-4 times a week) 84 days buprenorphine-naloxone [Suboxone] 12-3 mg film 1 film sublingual Q24H Qty: 7 0RF Print Language: Hungarian
--- NOTE | 2024-11-29 23:55 | ECG_ITS ---
Test Reason : cp Blood Pressure : */* mmHG Vent. Rate : 65 BPM Atrial Rate : 65 BPM P-R Int : 150 ms QRS Dur : 92 ms QT Int : 370 ms P-R-T Axes : 67 89 18 degrees QTcB Int : 384 ms Normal sinus rhythm Normal ECG When compared with ECG of 14-Oct-2024 21:22, No significant change was found Referred By: Travis Lozano Electronically Signed By: Ang Greco
[2024-11-30] VITALS: BP 114/70; PULSE 73; RESP 16; TEMP 36.9; O2SAT 97
== END 2024-11-30 | disposition home or self-care (01) ==
PROVIDERS: Emergency Provider Internal Medicine; PCP Nurse Practitioner Family
DX: F41.9 Anxiety disorder, unspecified (principal); R07.89 Other chest pain; M79.622 Pain in left upper arm; Z20.2 Contact with and (suspected) exposure to infections with a predominantly sexual mode of transmission
CPT/HCPCS: 93005; 99283

== ENCOUNTER → 2024-11-29 23:55 | Outpatient (BNV) | payer OTHER, SELFPAY | PROVIDERS: Emergency Provider Internal Medicine; PCP Nurse Practitioner Family; Visit Provider Internal Medicine Cardiovascular Disease | DX: R07.9 Chest pain, unspecified (principal) | CPT/HCPCS: 93010 ==

== ENCOUNTER 2024-12-04 11:06 | Emergency (ER) | payer OTHER, SELFPAY ==
[2024-12-04 11:25] VITALS: BP 118/72; PULSE 70; RESP 16; TEMP 36.9; O2SAT 97; BMI 24.9
--- NOTE | 2024-12-04 11:29 | ED_ITS ---
HPI - Male Genitourinary General Chief complaint: Urogenital-Male Stated complaint: STD Testing Time Seen by Provider: 12/04/24 13:21 Source: patient and RN notes reviewed Mode of arrival: ambulatory Limitations: no limitations History of Present Illness ED Provider: Arpita Jacobson PA-C HPI Narrative: This is a 29-year-old male who presents emergency department for retest for herpes virus. Patient reports that he is asymptomatic. He states that he had outpatient STI testing and was told that his herpes test was ?abnormal? patient reports that he has had no history of cold sores, and has never had genital lesions before. Patient denies any fevers, chills, genital lesions or rashes, dysuria, hematuria, urinary frequency or urgency. He is sexually active. No other complaints or concerns at this time. Relieving factors: none Exacerbating factors: none Related Data Sexually active: Yes Previous Rx's ?Medication ?Instructions ?Recorded fluticasone furoate 100 1 ea inhalation RDAILY #1 ea 07/09/22 mcg-vilanterol 25 mcg/dose inhalation powder (Breo Ellipta) sertraline 25 mg tablet 50 mg (2 x 25 mg) PO DAILY #30 tabs 09/23/22 Angiodroid therapeutics, OUD (Reset-O #1 ea 09/30/22 Digital Brandy (OUD)) buprenorphine 12 mg-naloxone 3 mg 1 film sublingual Q24H #7 ea 10/07/22 sublingual film (Suboxone) albuterol sulfate 2.5 mg/3 mL 2.5 mg (3 mL) inhalation Q4-6H PRN 10/23/22 (0.083 %) solution for nebulization shortness of breath or wheezing #180 mL albuterol sulfate 90 mcg/actuation 2 puff inhalation Q4-6H PRN 10/23/22 aerosol inhaler shortness of breath or wheezing #6.7 grams cyclobenzaprine 10 mg tablet 10 mg PO TID PRN muscle spasm #14 04/01/23 tabs ibuprofen 600 mg tablet 600 mg PO Q8H PRN pain #14 tabs 04/01/23 lidocaine 5 % topical patch 1 patch topical DAILY #15 ea 04/01/23 naproxen 500 mg tablet 500 mg PO BID PRN pain #20 tabs 04/29/23 albuterol sulfate 90 mcg/actuation 2 inh inhalation Q20M PRN 12/04/23 aerosol inhaler shortness of breath or wheezing #8.5 grams prednisone 20 mg tablet 40 mg (2 x 20 mg) PO DAILY 5 days 12/04/23 #10 tabs albuterol sulfate 90 mcg/actuation 2 puff inhalation Q4-6H PRN 12/16/23 aerosol inhaler (Ventolin HFA) shortness of breath or wheezing #8.5 grams prednisone 50 mg tablet 50 mg PO DAILY 4 days #4 tabs 12/16/23 albuterol sulfate 90 mcg/actuation 2 inh inhalation Q4-6H PRN 01/18/24 breath activated powder inhaler shortness of breath or wheezing #1 ea prednisone 20 mg tablet 40 mg (2 x 20 mg) PO DAILY 4 days 01/18/24 #8 tabs albuterol sulfate 90 mcg/actuation 2 puff inhalation Q6H PRN 06/12/24 aerosol inhaler shortness of breath or wheezing #8.5 grams prednisone 20 mg tablet 40 mg (2 x 20 mg) PO DAILY #10 tabs 06/12/24 albuterol sulfate 90 mcg/actuation 2 inh inhalation Q4-6H PRN 06/28/24 breath activated powder inhaler shortness of breath or wheezing #1 ea prednisone 20 mg tablet 40 mg (2 x 20 mg) PO DAILY #8 tabs 06/28/24 acetaminophen 500 mg tablet 500 - 1,000 mg (1 - 2 x 500 mg) PO 08/05/24 (Tylenol Extra Strength) Q6H PRN pain #30 tabs clindamycin HCl 300 mg capsule 300 mg PO TID 7 days #21 caps 08/05/24 ibuprofen 600 mg tablet 600 mg PO Q6H PRN pain #30 tabs 08/05/24 albuterol sulfate 90 mcg/actuation 1 puff inhalation QID #8.5 grams 11/03/24 aerosol inhaler prednisone 20 mg tablet See Rx Instructions .Route 11/03/24 .COMPLEX 12 days #26 tabs Allergies Allergy/AdvReac Type Severity Reaction Status Date / Time seafood Allergy Severe Anaphylaxis Verified 12/04/24 11:27 Penicillins [PENICILLINS] Allergy Intermediate RASH Verified 12/04/24 11:27 Review of Systems Review of Systems: Yes all other systems are reviewed and are negative Constitutional: Constitutional: Reports as per [facility] Past Medical History Medical History Substance abuse Alcohol abuse Depression Opioid use disorder Asthma Social History Social History Household Members: Family Household Members Other:: Mom Housing: House Do you presently have visiting nurse or other home services: No Unable to assess alcohol history related to: Unknown Alcohol intake: former Patient Tobacco Use Status: Current everyday Tobacco user Tobacco use type: Cigarette Cigarette Packs Per Day: 1 Cigarettes Per Day: 20.0 e-Cigarette/Vaping Use: Currently Using Substance Use Type: Heroin Advance Directives: No Advance Directives Information Provided: Yes service: No Current occupational status: employed Current occupation: right hand dominant Physical Exam Vital Signs: Vital Signs: Last Vital Signs Temp 98.5 F 12/04/24 11:25 Pulse 70 12/04/24 11:25 Resp 16 12/04/24 11:25 BP 118/72 12/04/24 11:25 Pulse Ox 97 12/04/24 11:25 O2 Del Method Room Air 12/04/24 11:25 BMI result Body Mass Index 24.9 Const: Other: General: Awake, alert, and oriented X3. No acute distress. HEENT: Normal inspection CVS: Normal heart rate and rhythm. Pulses normal. Respiratory: No respiratory distress Skin: Warm, dry, no rashes noted to exposed skin. Normal skin color. Normal skin turgor. Extremities: Normal to inspection Neuro: Oriented X 3. No motor deficit. No sensory deficit. Medical Decision Making Medical Decision Making MDM Narrative: This is a 29-year-old male who presents emergency department for herpes testing. On arrival, patient well-appearing under no acute distress. He states that he was currently asymptomatic. Vital signs within normal limits. Patient had an outpatient positive HSV test and would like to be retested. I discussed with patient that given that he was asymptomatic, he may be the care your of HSV. He understands, and would like to be retested. He is unsure if he was tested for syphilis therefore this is also added. Tested for gonorrhea and chlamydia. Given that he was asymptomatic, deferring treatment at this time. We will call with any positive results. Given return precautions and advised to follow-up with [facility] or primary care office for further testing. Patient stable for discharge Differential Diagnosis Differential Diagnoses: The differential diagnosis associated with the presentation includes HSV, herpes, syphilis, STI exposure Discharge Plan Discharge Clinical Impression: Screen for STD (sexually transmitted disease) Patient Disposition: Home, Self-Care Instructions: Sexually Transmitted Diseases (ED), Safe Sex Practices (ED) Additional Instructions: You were seen in the emergency department for repeat testing. We tested you for HSV, syphilis, and gonorrhea and chlamydia. These take several days for them to returned, we will call you if any of these are positive. Please be advised that a positive herpes antibody test indicates that you have been exposed to the herpes simplex virus at some point in the past. This means that your body has developed antibodies in response to the virus in the test attacks those antibodies in her blood. Does not necessarily mean you have an active infection or experiencing symptoms. Many people who test positive for HSV antibodies are asymptomatic meaning they do not experience any noticeable symptoms or outbreaks. We will call you if any of your test results are positive. If you have any herpes outbreaks, you can follow-up at primary care office, or clinic. You can have routine STI testing performed at [facility] locations. Prescriptions: No Action fluticasone furoate-vilanterol [Breo Ellipta] 100-25 mcg/dose Blister With Device 1 ea inhalation RDAILY Qty: 1 0RF albuterol sulfate 90 mcg/actuation HFA aerosol inhaler 2 puff inhalation Q4-6H PRN (Reason: shortness of breath or wheezing) Qty: 6.7 3RF Rx Instructions: May dispense medication equivalent accepted by patient's insurance albuterol sulfate 2.5 mg /3 mL (0.083 %) solution for nebulization 2.5 mg inhalation Q4-6H PRN (Reason: shortness of breath or wheezing) Qty: 180 2RF Rx Instructions: May dispense medication equivalent accepted by patient's insurance cyclobenzaprine 10 mg tablet 10 mg PO TID PRN (Reason: muscle spasm) Qty: 14 0RF ibuprofen 600 mg tablet 600 mg PO Q8H PRN (Reason: pain) Qty: 14 0RF lidocaine 5 % adhesive patch,medicated 1 patch topical DAILY Qty: 15 0RF Rx Instructions: leave on most painful area for up to 12 hrs prednisone 20 mg tablet 40 mg PO DAILY Qty: 10 0RF albuterol sulfate 90 mcg/actuation HFA aerosol inhaler 2 puff inhalation Q6H PRN (Reason: shortness of breath or wheezing) Qty: 8.5 0RF prednisone 20 mg tablet 40 mg PO DAILY Qty: 8 0RF albuterol sulfate 90 mcg/actuation aerosol powdr breath activated 2 inh inhalation Q4-6H PRN (Reason: shortness of breath or wheezing) Qty: 1 0RF albuterol sulfate 90 mcg/actuation HFA aerosol inhaler 1 puff inhalation QID Qty: 8.5 0RF prednisone 20 mg tablet See Rx Instructions .ROUTE .COMPLEX 12 Days Qty: 26 0RF Rx Instructions: 20 mg orally, Take 3 tablets for 5 days THEN; Take 2 tablets for 4 days THEN; Take 1 tablet for 3 days naproxen 500 mg tablet 500 mg PO BID PRN (Reason: pain) Qty: 20 0RF albuterol sulfate 90 mcg/actuation HFA aerosol inhaler 2 inh inhalation Q20M PRN (Reason: shortness of breath or wheezing) Qty: 8.5 0RF prednisone 20 mg tablet 40 mg PO DAILY 5 Days Qty: 10 0RF albuterol sulfate [Ventolin HFA] 90 mcg/actuation HFA aerosol inhaler 2 puff inhalation Q4-6H PRN (Reason: shortness of breath or wheezing) Qty: 8.5 1RF prednisone 50 mg tablet 50 mg PO DAILY 4 Days Qty: 4 0RF albuterol sulfate 90 mcg/actuation aerosol powdr breath activated 2 inh inhalation Q4-6H PRN (Reason: shortness of breath or wheezing) Qty: 1 0RF prednisone 20 mg tablet 40 mg PO DAILY 4 Days Qty: 8 0RF clindamycin HCl 300 mg capsule 300 mg PO TID 7 Days Qty: 21 0RF ibuprofen 600 mg tablet 600 mg PO Q6H PRN (Reason: pain) Qty: 30 0RF acetaminophen [Tylenol Extra Strength] 500 mg tablet 500 - 1,000 mg PO Q6H PRN (Reason: pain) Qty: 30 0RF sertraline 25 mg tablet 50 mg PO DAILY Qty: 30 0RF (DME) Reset-O Digital Brandy (OUD) Misc See Rx Instructions .MEDSUPPLY Qty: 1 3RF Rx Instructions: As directed (3-4 times a week) 84 days buprenorphine-naloxone [Suboxone] 12-3 mg film 1 film sublingual Q24H Qty: 7 0RF Discharge Date/Time: 12/04/24 13:57 Print Language: Danish
--- NOTE | 2024-12-04 13:53 | PC.NURSE ---
Verified with lab, correct lab tubes for labs ordered.
--- OUTSIDE RECORDS SUMMARY | 2024-12-04 14:02 | XMS_ITS | Clinical Summary ---
Author Organization [employer] Address [address] [place] [address] Care Team Providers Care Clinical Research Manager Name Role Phone Unavailable Primary Care Provider [...]
--- OUTSIDE RECORDS SUMMARY | 2024-12-04 14:02 | XMS_ITS | Clinical Summary ---
Author Organization [facility] Address [address] [place] [address] Care Team Providers Care Complaint Investigations Officer Name Role Phone Unavailable Primary Care Provider [...] patient's age to complete this topic Insurance [facility]
--- OUTSIDE RECORDS SUMMARY | 2024-12-04 14:02 | XMS_ITS | Encounter Summary ---
Author Organization [email or web address] Address [address] [place] [address] Care Team Providers Care Comptroller Name Role Phone Unavailable Primary Care Provider Unavailabl e Reason for Visit * Reason Onset Date Comments emergency appt 08/09/2024 Encounter Details Date Type Department Care Team (Late st Contact Info) Description 08/09/2024 Telephone [facility] [address] [place] [address] Denise Gannon, DDS [address] [place], [place] [phone] emergency appt Social History Tobacco Use Types Packs/Day Years Used Date Smoking Tobacco: Never Assessed Sex and Gender Information Value Date Recorded Sex Assigned at Not on file Legal Sex Male 11:16 AM EDT Gender Identity Not on file Sexual Orientation Not on file documented as of this encounter Miscellaneous Notes * Telephone Encounter - Ana M Rome - 08/09/2024 10:25 AM EST Patient [...]
[2024-12-04 16:18] LABS: CT PCR NOT DETECTED (Not Detect.); NG PCR NOT DETECTED (Not Detect.)
[2024-12-05 06:29] LABS: Herpes Simplex Type 2 IgG <0.90 index
[2024-12-05 09:06] LABS: Syphilis Screen Nonreactive (Nonreactive)
== END 2024-12-04 13:57 | disposition home or self-care (01) ==
PROVIDERS: Physician Assistant Medical; Emergency Provider Emergency Medicine
DX: B00.9 Herpesviral infection, unspecified (principal)
CPT/HCPCS: 36415; 86695; 86696; 86780; 87491; 87591; 99282; 99283

== ENCOUNTER 2025-01-07 18:06 | Emergency (ER) | payer OTHER, SELFPAY ==
--- NOTE | ~2025-01-07 | XR_ITS ---
CLINICAL HISTORY: swelling pain b l knees 4 views of the right knee, 4 views of the left knee Comparison: 10/15/2024 02:29 PM EST: CRSR: XR KNEE RT 4V Findings: No acute fractures in the bilateral knees. No significant arthritic change or erosions. Similar cortical thickening along the hbtug-aygdnox-khib-left posterior aspects of the distal femoral shaft/condyles, can be seen with nonossifying fibromas, nonspecific. Bilateral anterior soft tissue swelling with trace effusion on the right. No radiopaque foreign body. IMPRESSION: No acute fractures in the bilateral knees. This document has been electronically signed by: Rod Barfield MD on 01/07/2025 20:20:28
[2025-01-07 18:34] VITALS: BP 126/77; PULSE 62; RESP 18; TEMP 37; O2SAT 97; BMI 27.0
--- NOTE | 2025-01-07 18:39 | ED.LOWEXIN ---
HPI - Extremity Injury (Lower) General Chief Complaint: Extremity Injury, Lower Stated Complaint: Bilateral knee pain Time Seen by Provider: 01/07/25 20:59 Source: patient Mode of arrival: ambulatory Limitations: no limitations History of Present Illness ED Provider: Kelsy Barnett NP HPI Narrative: Patient is a 29-year-old male who presents emergency department for evaluation. He states that he has been having bilateral knee pain since earlier today. Denies any precipitating injury. States that this has happened in the past, was told by his primary care doctor that he gets ?fluid buildup in the knee?. He denies any fevers, chills, redness, rashes or lesions, numbness or tingling in the extremities, lower extremity swelling, history of VTE/malignancy. Related Data Previous Rx's ?Medication ?Instructions ?Recorded fluticasone furoate 100 1 ea inhalation RDAILY #1 ea 07/09/22 mcg-vilanterol 25 mcg/dose inhalation powder (Breo Ellipta) sertraline 25 mg tablet 50 mg (2 x 25 mg) PO DAILY #30 tabs 09/23/22 digital therapeutics, OUD (Reset-O #1 ea 09/30/22 Digital Brandy (OUD)) buprenorphine 12 mg-naloxone 3 mg 1 film sublingual Q24H #7 ea 10/07/22 sublingual film (Suboxone) albuterol sulfate 2.5 mg/3 mL 2.5 mg (3 mL) inhalation Q4-6H PRN 10/23/22 (0.083 %) solution for nebulization shortness of breath or wheezing #180 mL albuterol sulfate 90 mcg/actuation 2 puff inhalation Q4-6H PRN 10/23/22 aerosol inhaler shortness of breath or wheezing #6.7 grams cyclobenzaprine 10 mg tablet 10 mg PO TID PRN muscle spasm #14 04/01/23 tabs ibuprofen 600 mg tablet 600 mg PO Q8H PRN pain #14 tabs 04/01/23 lidocaine 5 % topical patch 1 patch topical DAILY #15 ea 04/01/23 naproxen 500 mg tablet 500 mg PO BID PRN pain #20 tabs 04/29/23 albuterol sulfate 90 mcg/actuation 2 inh inhalation Q20M PRN 12/04/23 aerosol inhaler shortness of breath or wheezing #8.5 grams prednisone 20 mg tablet 40 mg (2 x 20 mg) PO DAILY 5 days 12/04/23 #10 tabs albuterol sulfate 90 mcg/actuation 2 puff inhalation Q4-6H PRN 12/16/23 aerosol inhaler (Ventolin HFA) shortness of breath or wheezing #8.5 grams prednisone 50 mg tablet 50 mg PO DAILY 4 days #4 tabs 12/16/23 albuterol sulfate 90 mcg/actuation 2 inh inhalation Q4-6H PRN 01/18/24 breath activated powder inhaler shortness of breath or wheezing #1 ea prednisone 20 mg tablet 40 mg (2 x 20 mg) PO DAILY 4 days 01/18/24 #8 tabs albuterol sulfate 90 mcg/actuation 2 puff inhalation Q6H PRN 06/12/24 aerosol inhaler shortness of breath or wheezing #8.5 grams prednisone 20 mg tablet 40 mg (2 x 20 mg) PO DAILY #10 tabs 06/12/24 albuterol sulfate 90 mcg/actuation 2 inh inhalation Q4-6H PRN 06/28/24 breath activated powder inhaler shortness of breath or wheezing #1 ea prednisone 20 mg tablet 40 mg (2 x 20 mg) PO DAILY #8 tabs 06/28/24 acetaminophen 500 mg tablet 500 - 1,000 mg (1 - 2 x 500 mg) PO 08/05/24 (Tylenol Extra Strength) Q6H PRN pain #30 tabs clindamycin HCl 300 mg capsule 300 mg PO TID 7 days #21 caps 08/05/24 ibuprofen 600 mg tablet 600 mg PO Q6H PRN pain #30 tabs 08/05/24 albuterol sulfate 90 mcg/actuation 1 puff inhalation QID #8.5 grams 11/03/24 aerosol inhaler prednisone 20 mg tablet See Rx Instructions .Route 11/03/24 .COMPLEX 12 days #26 tabs Allergies Allergy/AdvReac Type Severity Reaction Status Date / Time seafood Allergy Severe Anaphylaxis Verified 01/07/25 18:35 Penicillins [PENICILLINS] Allergy Intermediate RASH Verified 01/07/25 18:35 Review of Systems Review of Systems: Yes all other systems are reviewed and are negative PMFSH Past Medical History Attestation statement: The following information was validated with the patient. Source: old records reviewed Medical History Substance abuse Alcohol abuse Depression Opioid use disorder Asthma Social History Social History Household Members: Family Household Members Other:: Mom Housing: House Do you presently have visiting nurse or other home services: No Unable to assess alcohol history related to: Unknown Alcohol intake: former Patient Tobacco Use Status: Current everyday Tobacco user Tobacco use type: Cigarette Cigarette Packs Per Day: 1 Cigarettes Per Day: 20.0 e-Cigarette/Vaping Use: Currently Using Substance Use Type: Heroin Advance Directives: No Advance Directives Information Provided: No service: No Current occupational status: employed Current occupation: right hand dominant Physical Exam Vital Signs: Vital Signs: Last Vital Signs Temp 98.6 F 01/07/25 18:34 Pulse 62 01/07/25 18:34 Resp 18 01/07/25 18:34 BP 126/77 01/07/25 18:34 Pulse Ox 97 01/07/25 18:34 O2 Del Method Room Air 01/07/25 18:34 BMI result Body Mass Index 27.0 Appearance: Alert.?Oriented to person, place and time. No acute distress.?Normal affect.?? CVS: Heart sounds normal. Normal heart rate and rhythm.? Pulses normal.?? Respiratory: No respiratory distress.? Lung sounds clear to auscultation bilaterally? Skin: Skin warm and dry.? Normal skin color.? Extremities: No lower extremity edema.? No calf ttp?2+ DP/PT pulse bilaterally. Bilateral knees without laxity or deformity. Anterior and posterior drawer test negative. No effusions. No rashes or lesions. Neuro: Moves all extremities spontaneously. Sensation intact bilaterally. Ambulates with normal steady gait. Course Course Course Narrative: 01/07/25 1840 JENNIFER Zurita This is a Rapid Medical Examination (RME) performed by Katie Ring PA-C in triage. Full HPI, ROS, assessment and treatment plan per primary provider in the Main ED. Hx: 29 yo M here for eval of b/l knee swelling which began today. no hx similar. no trauma/injury. PE/vitals: knees not visualized in triage d/t patient's clothings Plan: xrs Medical Decision Making Medical Decision Making MDM Narrative: Patient is a 29-year-old male presents emergency department for evaluation of bilateral knee pain as per HPI atraumatic in nature with onset today history of similar in the past. He is ambulatory with a steady gait. Extremities are neurovascularly intact distally bilaterally. On examination there was no acute abnormality. No redness or erythema no fevers or chills or signs of systemic toxicity to suggest a septic joint. Bilateral x-rays were obtained prior to my assumption of care and are without acute osseous abnormality. Has not trialed any OTC analgesics. I discussed with him conservative treatment, outpatient follow-up with primary care provider as needed in worrisome signs and symptoms that would warrant re-evaluation. All questions answered. Stable for discharge Differential Diagnosis Differential Diagnoses: The differential diagnosis associated with the presentation includes (See narrative above) Admission/Observation Consideration of admission/observation: Escalation of care including admission/observation considered Independent Interpretation I performed an independent interpretation of an: Plain X-Ray (See narrative above) Radiology Impression Discussion of test interpretation with radiology: I have reviewed the radiologist's reading. Radiologist Impression: 4 views of the right knee, 4 views of the left knee Comparison: 10/15/2024 02:29 PM EST: CRSR: XR KNEE RT 4V Findings: No acute fractures in the bilateral knees. No significant arthritic change or erosions. Similar cortical thickening along the vqfuy-swytnwh-txkd-left posterior aspects of the distal femoral shaft/condyles, can be seen with nonossifying fibromas, nonspecific. Bilateral anterior soft tissue swelling with trace effusion on the right. No radiopaque foreign body. IMPRESSION: No acute fractures in the bilateral knees. External Record Review External record reviewed: Outpatient record Prescription Management I considered prescription management with: Pain Medication (Acetaminophen/ibuprofen) Discharge Plan Discharge Clinical Impression: Acute knee pain Patient Disposition: Home, Self-Care Instructions: Knee Pain (ED) Additional Instructions: Be sure to rest over the next few days apply ice for 10-15 minutes 3-4 times daily, refrain from excessive walking. You may use the elastic bandage as provided to help provide comfort/stability to the knees. You can take ibuprofen 200 mg, 3 tablets (600mg) every 6-8 hours as needed for pain, in addition to Tylenol 500 mg, 2 tablets (1,000mg) every 4-6 hours as needed for pain, but not to exceed 3 doses daily (3,000mg).? Follow-up with primary care doctor. May return to emergency department any new or worsening symptoms or concerns which includes but is not limited to fevers, chills, redness, swelling, rashes, lesions, numbness or tingling. Prescriptions: No Action fluticasone furoate-vilanterol [Breo Ellipta] 100-25 mcg/dose Blister With Device 1 ea inhalation RDAILY Qty: 1 0RF albuterol sulfate 90 mcg/actuation HFA aerosol inhaler 2 puff inhalation Q4-6H PRN (Reason: shortness of breath or wheezing) Qty: 6.7 3RF Rx Instructions: May dispense medication equivalent accepted by patient's insurance albuterol sulfate 2.5 mg /3 mL (0.083 %) solution for nebulization 2.5 mg inhalation Q4-6H PRN (Reason: shortness of breath or wheezing) Qty: 180 2RF Rx Instructions: May dispense medication equivalent accepted by patient's insurance cyclobenzaprine 10 mg tablet 10 mg PO TID PRN (Reason: muscle spasm) Qty: 14 0RF ibuprofen 600 mg tablet 600 mg PO Q8H PRN (Reason: pain) Qty: 14 0RF lidocaine 5 % adhesive patch,medicated 1 patch topical DAILY Qty: 15 0RF Rx Instructions: leave on most painful area for up to 12 hrs prednisone 20 mg tablet 40 mg PO DAILY Qty: 10 0RF albuterol sulfate 90 mcg/actuation HFA aerosol inhaler 2 puff inhalation Q6H PRN (Reason: shortness of breath or wheezing) Qty: 8.5 0RF prednisone 20 mg tablet 40 mg PO DAILY Qty: 8 0RF albuterol sulfate 90 mcg/actuation aerosol powdr breath activated 2 inh inhalation Q4-6H PRN (Reason: shortness of breath or wheezing) Qty: 1 0RF albuterol sulfate 90 mcg/actuation HFA aerosol inhaler 1 puff inhalation QID Qty: 8.5 0RF prednisone 20 mg tablet See Rx Instructions .ROUTE .COMPLEX 12 Days Qty: 26 0RF Rx Instructions: 20 mg orally, Take 3 tablets for 5 days THEN; Take 2 tablets for 4 days THEN; Take 1 tablet for 3 days naproxen 500 mg tablet 500 mg PO BID PRN (Reason: pain) Qty: 20 0RF albuterol sulfate 90 mcg/actuation HFA aerosol inhaler 2 inh inhalation Q20M PRN (Reason: shortness of breath or wheezing) Qty: 8.5 0RF prednisone 20 mg tablet 40 mg PO DAILY 5 Days Qty: 10 0RF albuterol sulfate [Ventolin HFA] 90 mcg/actuation HFA aerosol inhaler 2 puff inhalation Q4-6H PRN (Reason: shortness of breath or wheezing) Qty: 8.5 1RF prednisone 50 mg tablet 50 mg PO DAILY 4 Days Qty: 4 0RF albuterol sulfate 90 mcg/actuation aerosol powdr breath activated 2 inh inhalation Q4-6H PRN (Reason: shortness of breath or wheezing) Qty: 1 0RF prednisone 20 mg tablet 40 mg PO DAILY 4 Days Qty: 8 0RF clindamycin HCl 300 mg capsule 300 mg PO TID 7 Days Qty: 21 0RF ibuprofen 600 mg tablet 600 mg PO Q6H PRN (Reason: pain) Qty: 30 0RF acetaminophen [Tylenol Extra Strength] 500 mg tablet 500 - 1,000 mg PO Q6H PRN (Reason: pain) Qty: 30 0RF sertraline 25 mg tablet 50 mg PO DAILY Qty: 30 0RF (DME) Reset-O Digital Brandy (OUD) Misc See Rx Instructions .MEDSUPPLY Qty: 1 3RF Rx Instructions: As directed (3-4 times a week) 84 days buprenorphine-naloxone [Suboxone] 12-3 mg film 1 film sublingual Q24H Qty: 7 0RF Referrals: Physician,None [Primary Care Provider] - Print Language: Tongan
--- OUTSIDE RECORDS SUMMARY | 2025-01-07 21:08 | XMS_ITS | Clinical Summary ---
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
--- OUTSIDE RECORDS SUMMARY | 2025-01-07 21:08 | XMS_ITS | Clinical Summary ---
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
[2025-01-07 22:40] VITALS: BP 128/65; PULSE 62; RESP 16; TEMP 36.5; O2SAT 98
== END 2025-01-07 22:40 | disposition home or self-care (01) ==
PROVIDERS: Emergency Provider Emergency Medicine
DX: M25.561 Pain in right knee (principal); M25.562 Pain in left knee
CPT/HCPCS: 73564; 99282; 99283

== ENCOUNTER → 2025-01-07 18:34 | Outpatient (BNV) | payer OTHER, SELFPAY | PROVIDERS: Visit Provider Radiology Diagnostic Radiology | DX: M17.0 Bilateral primary osteoarthritis of knee (principal) | CPT/HCPCS: 73564 ==

== ENCOUNTER 2025-01-24 22:50 | Emergency (ER) | payer OTHER, SELFPAY ==
[2025-01-24 23:13] VITALS: BP 123/59; PULSE 85; RESP 18; TEMP 36.6; O2SAT 96; BMI 23.7
[2025-01-24 23:30] LABS: MANUAL DIFF FLAG NO
[2025-01-24 23:35] LABS: Basophils Percent Auto 0.3 % (0-2); Eosinophils Absolute Auto 0.1 X10*3/uL (0.0-0.4); Eosinophils Percent Auto 0.8 % (0-4); Hematocrit 43.1 % (42.0-52.0); Hemoglobin 15.1 g/dl (14.0-18.0); Imm Gran Abs Auto 0.02 X10*3/uL (0.00-0.03); Imm Gran Pct Auto 0.3 % (0.0-0.4); Lymphocytes Absolute Auto 1.3 X10*3/uL (1.2-4.9); Lymphocytes Percent Auto 20.5 % (20-40); Mean Corpuscular Volume 82.9 fL (80.0-98.0); Mean Platelet Volume 10.3 fL (9.4-12.4); Monocytes Percent Auto 15.2 % (2-11); Neutrophils Absolute Auto 3.9 x10*3/uL (2.0-8.3); Neutrophils Percent Auto 62.9 % (45-73); Platelet Count 271 X10*3/uL (160-400); Red Cell Distribution Width 13.7 % (11.0-16.0); White Blood Count 6.3 X10*3/uL (4.8-10.8)
[2025-01-24 23:45] LABS: Alanine Aminotransferase 17 U/L (0-40); Albumin Level 4.7 g/dL (3.5-5.0); Alkaline Phosphatase 102 U/L (39-117); Anion Gap 11 (12-20); Aspartate Amino Transferase 19 U/L (5-37); Bilirubin Direct 0.3 mg/dL (0.0-0.5); Bilirubin Total 0.8 mg/dL (0.0-1.0); Blood Urea Nitrogen 12 mg/dL (9-16); Calcium 9.5 mg/dL (8.4-10.2); Carbon Dioxide 26 mmol/L (22-29); Chloride 108 mmol/L (96-108); Creatinine Clr Calc Pharmacy 138.1; Estimated Glomerular Filt Rate > 60; Glucose Random 107 mg/dL (60-115); Lipase 8 U/L (8-78); Potassium 3.7 mmol/L (3.3-5.1); Sodium 141 mmol/L (135-145); Total Protein 7.4 g/dL (6.5-8.0)
--- NOTE | 2025-01-25 03:53 | ED_ITS ---
HPI - Abdominal Pain General Chief Complaint: Abdominal Pain Stated Complaint: abd pain Time Seen by Provider: 01/25/25 03:49 Source: patient Mode of arrival: ambulatory Limitations: no limitations History of Present Illness ED Provider: HPI narrative: Patient complaining of left upper abdominal pain since yesterday no nausea no vomiting able to eat pretty well does have history of constipation patient has been here multiple times for different issues also had abdominal pain in the past Related Data Previous Rx's ?Medication ?Instructions ?Recorded fluticasone furoate 100 1 ea inhalation RDAILY #1 ea 07/09/22 mcg-vilanterol 25 mcg/dose inhalation powder (Breo Ellipta) sertraline 25 mg tablet 50 mg (2 x 25 mg) PO DAILY #30 tabs 09/23/22 Filtr8, OUD (Reset-O #1 ea 09/30/22 Digital Brandy (OUD)) buprenorphine 12 mg-naloxone 3 mg 1 film sublingual Q24H #7 ea 10/07/22 sublingual film (Suboxone) albuterol sulfate 2.5 mg/3 mL 2.5 mg (3 mL) inhalation Q4-6H PRN 10/23/22 (0.083 %) solution for nebulization shortness of breath or wheezing #180 mL albuterol sulfate 90 mcg/actuation 2 puff inhalation Q4-6H PRN 10/23/22 aerosol inhaler shortness of breath or wheezing #6.7 grams cyclobenzaprine 10 mg tablet 10 mg PO TID PRN muscle spasm #14 04/01/23 tabs ibuprofen 600 mg tablet 600 mg PO Q8H PRN pain #14 tabs 04/01/23 lidocaine 5 % topical patch 1 patch topical DAILY #15 ea 04/01/23 naproxen 500 mg tablet 500 mg PO BID PRN pain #20 tabs 04/29/23 albuterol sulfate 90 mcg/actuation 2 inh inhalation Q20M PRN 12/04/23 aerosol inhaler shortness of breath or wheezing #8.5 grams prednisone 20 mg tablet 40 mg (2 x 20 mg) PO DAILY 5 days 12/04/23 #10 tabs albuterol sulfate 90 mcg/actuation 2 puff inhalation Q4-6H PRN 12/16/23 aerosol inhaler (Ventolin HFA) shortness of breath or wheezing #8.5 grams prednisone 50 mg tablet 50 mg PO DAILY 4 days #4 tabs 12/16/23 albuterol sulfate 90 mcg/actuation 2 inh inhalation Q4-6H PRN 01/18/24 breath activated powder inhaler shortness of breath or wheezing #1 ea prednisone 20 mg tablet 40 mg (2 x 20 mg) PO DAILY 4 days 01/18/24 #8 tabs albuterol sulfate 90 mcg/actuation 2 puff inhalation Q6H PRN 06/12/24 aerosol inhaler shortness of breath or wheezing #8.5 grams prednisone 20 mg tablet 40 mg (2 x 20 mg) PO DAILY #10 tabs 06/12/24 albuterol sulfate 90 mcg/actuation 2 inh inhalation Q4-6H PRN 06/28/24 breath activated powder inhaler shortness of breath or wheezing #1 ea prednisone 20 mg tablet 40 mg (2 x 20 mg) PO DAILY #8 tabs 06/28/24 acetaminophen 500 mg tablet 500 - 1,000 mg (1 - 2 x 500 mg) PO 08/05/24 (Tylenol Extra Strength) Q6H PRN pain #30 tabs clindamycin HCl 300 mg capsule 300 mg PO TID 7 days #21 caps 08/05/24 ibuprofen 600 mg tablet 600 mg PO Q6H PRN pain #30 tabs 08/05/24 albuterol sulfate 90 mcg/actuation 1 puff inhalation QID #8.5 grams 11/03/24 aerosol inhaler prednisone 20 mg tablet See Rx Instructions .Route 11/03/24 .COMPLEX 12 days #26 tabs Allergies Allergy/AdvReac Type Severity Reaction Status Date / Time seafood Allergy Severe Anaphylaxis Verified 01/24/25 23:15 Penicillins [PENICILLINS] Allergy Intermediate RASH Verified 01/24/25 23:15 Review of Systems Review of Systems Yes all other systems are reviewed and are negative PMFSH Past Medical History Medical History Substance abuse Alcohol abuse Depression Opioid use disorder Asthma Social History Social History Household Members: Family Household Members Other:: Mom Housing: House Do you presently have visiting nurse or other home services: No Unable to assess alcohol history related to: Unknown Alcohol intake: former Patient Tobacco Use Status: Current everyday Tobacco user Tobacco use type: Cigarette Cigarette Packs Per Day: 1 Cigarettes Per Day: 20.0 e-Cigarette/Vaping Use: Currently Using Substance Use Type: Heroin Do you have a plan to hurt others: No Plan service: No Current occupational status: employed Current occupation: right hand dominant Physical Exam ED Vital Signs: Vital Signs - 24 hr 01/24/25 23:13 Temperature 97.9 F Pulse Rate 85 Respiratory Rate 18 Blood Pressure 123/59 L Pulse Oximetry 96 Oxygen Delivery Method Room Air BMI result Body Mass Index 23.7 Appearance: Alert. Oriented X3. No acute distress. Eyes: PERRLA, No Nystagmus ENT: Pharynx normal. Oral Mucosa moist Neck: Normal inspection. Neck supple. CVS: Normal heart rate and rhythm. Pulses normal. Respiratory: No respiratory distress. Equal air entry bilateral, no wheezing/rales/rhonchi Abdomen: Soft and mild tenderness left upper quadrant Bowel sounds are present, no mass palpable, no CVA tenderness Skin: Skin warm and dry. Normal skin color. Normal skin turgor. Extremities: No lower extremity edema. No calf tenderness Neuro: Oriented X 3. No motor deficit. No sensory deficit.No cerebellar signs , cranial nerves II-XII intact Medical Decision Making Medical Decision Making [facility] Narrative: Patient with left upper abdominal pain with normal labs history of constipation eating food in the ER likely nonspecific pain Differential Diagnosis Differential Diagnoses: The differential diagnosis associated with the presentation includes Pancreatitis/kidney stones gastritis/constipation Lab Data [facility] Lab Attestation statement: I reviewed the patient's lab results. 01/24/25 23:17 01/24/25 23:17 Labs: Lab Results 01/24/25 Range/Units 23:17 WBC 6.3 (4.8-10.8) X10*3/uL RBC 5.20 (4.60-5.80) X10*6/uL Hgb 15.1 (14.0-18.0) g/dl Hct 43.1 (42.0-52.0) % MCV 82.9 (80.0-98.0) fL MCH 29.0 (27.0-33.0) pg MCHC 35.0 (31.0-36.0) g/dl RDW 13.7 (11.0-16.0) % Plt Count 271 (160-400) X10*3/uL MPV 10.3 (9.4-12.4) fL Immature Gran % (Auto) 0.3 (0.0-0.4) % Neut % (Auto) 62.9 (45-73) % Lymph % (Auto) 20.5 (20-40) % Thayer % (Auto) 15.2 H (2-11) % Eos % (Auto) 0.8 (0-4) % Baso % (Auto) 0.3 (0-2) % Lymph # (Auto) 1.3 (1.2-4.9) X10*3/uL Thayer # (Auto) 1.0 (0.1-1.2) X10*3/uL Eos # (Auto) 0.1 (0.0-0.4) X10*3/uL Baso # (Auto) 0.0 (0.0-0.2) X10*3/uL Abs Immat Gran (auto) 0.02 (0.00-0.03) X10*3/uL Absolute Neuts (auto) 3.9 (2.0-8.3) x10*3/uL Absolute Nucleated RBC 0.000 (0.0-0.012) X10*3/uL Nucleated RBC % (auto) 0.0 (0.0-0.2) /100WBC Sodium 141 (135-145) mmol/L Potassium 3.7 (3.3-5.1) mmol/L Chloride 108 (96-108) mmol/L Carbon Dioxide 26 (22-29) mmol/L Anion Gap 11 L (12-20) BUN 12 (9-16) mg/dL Creatinine 0.80 (0.5-1.4) mg/dL Estim Creat Clear Calc 138.1 Estimated GFR > 60 Random Glucose 107 (60-115) mg/dL Calcium 9.5 (8.4-10.2) mg/dL Total Bilirubin 0.8 (0.0-1.0) mg/dL Direct Bilirubin 0.3 (0.0-0.5) mg/dL AST 19 (5-37) U/L ALT 17 (0-40) U/L Alkaline Phosphatase 102 (39-117) U/L Total Protein 7.4 (6.5-8.0) g/dL Albumin 4.7 (3.5-5.0) g/dL Lipase 8 (8-78) U/L Discharge Plan Discharge Clinical Impression: Abdominal pain Patient Disposition: Home, Self-Care Instructions: Abdominal Pain (ED) Additional Instructions: Drink plenty of fluids your pain is likely from constipation Prescriptions: No Action fluticasone furoate-vilanterol [Breo Ellipta] 100-25 mcg/dose Blister With Device 1 ea inhalation RDAILY Qty: 1 0RF albuterol sulfate 90 mcg/actuation HFA aerosol inhaler 2 puff inhalation Q4-6H PRN (Reason: shortness of breath or wheezing) Qty: 6.7 3RF Rx Instructions: May dispense medication equivalent accepted by patient's insurance albuterol sulfate 2.5 mg /3 mL (0.083 %) solution for nebulization 2.5 mg inhalation Q4-6H PRN (Reason: shortness of breath or wheezing) Qty: 180 2RF Rx Instructions: May dispense medication equivalent accepted by patient's insurance cyclobenzaprine 10 mg tablet 10 mg PO TID PRN (Reason: muscle spasm) Qty: 14 0RF ibuprofen 600 mg tablet 600 mg PO Q8H PRN (Reason: pain) Qty: 14 0RF lidocaine 5 % adhesive patch,medicated 1 patch topical DAILY Qty: 15 0RF Rx Instructions: leave on most painful area for up to 12 hrs prednisone 20 mg tablet 40 mg PO DAILY Qty: 10 0RF albuterol sulfate 90 mcg/actuation HFA aerosol inhaler 2 puff inhalation Q6H PRN (Reason: shortness of breath or wheezing) Qty: 8.5 0RF prednisone 20 mg tablet 40 mg PO DAILY Qty: 8 0RF albuterol sulfate 90 mcg/actuation aerosol powdr breath activated 2 inh inhalation Q4-6H PRN (Reason: shortness of breath or wheezing) Qty: 1 0RF albuterol sulfate 90 mcg/actuation HFA aerosol inhaler 1 puff inhalation QID Qty: 8.5 0RF prednisone 20 mg tablet See Rx Instructions .ROUTE .COMPLEX 12 Days Qty: 26 0RF Rx Instructions: 20 mg orally, Take 3 tablets for 5 days THEN; Take 2 tablets for 4 days THEN; Take 1 tablet for 3 days naproxen 500 mg tablet 500 mg PO BID PRN (Reason: pain) Qty: 20 0RF albuterol sulfate 90 mcg/actuation HFA aerosol inhaler 2 inh inhalation Q20M PRN (Reason: shortness of breath or wheezing) Qty: 8.5 0RF prednisone 20 mg tablet 40 mg PO DAILY 5 Days Qty: 10 0RF albuterol sulfate [Ventolin HFA] 90 mcg/actuation HFA aerosol inhaler 2 puff inhalation Q4-6H PRN (Reason: shortness of breath or wheezing) Qty: 8.5 1RF prednisone 50 mg tablet 50 mg PO DAILY 4 Days Qty: 4 0RF albuterol sulfate 90 mcg/actuation aerosol powdr breath activated 2 inh inhalation Q4-6H PRN (Reason: shortness of breath or wheezing) Qty: 1 0RF prednisone 20 mg tablet 40 mg PO DAILY 4 Days Qty: 8 0RF clindamycin HCl 300 mg capsule 300 mg PO TID 7 Days Qty: 21 0RF ibuprofen 600 mg tablet 600 mg PO Q6H PRN (Reason: pain) Qty: 30 0RF acetaminophen [Tylenol Extra Strength] 500 mg tablet 500 - 1,000 mg PO Q6H PRN (Reason: pain) Qty: 30 0RF sertraline 25 mg tablet 50 mg PO DAILY Qty: 30 0RF (DME) Reset-O Digital Brandy (OUD) Misc See Rx Instructions .MEDSUPPLY Qty: 1 3RF Rx Instructions: As directed (3-4 times a week) 84 days buprenorphine-naloxone [Suboxone] 12-3 mg film 1 film sublingual Q24H Qty: 7 0RF Print Language: Japanese
[2025-01-25 04:33] VITALS: BP 135/79; PULSE 76; RESP 16; TEMP 36.8; O2SAT 99
[2025-01-25 04:51] VITALS: BP 135/79; PULSE 76; RESP 16; TEMP 36.8; O2SAT 99
== END 2025-01-25 04:51 | disposition home or self-care (01) ==
PROVIDERS: Emergency Provider Internal Medicine; PCP Nurse Practitioner Family
DX: R10.12 Left upper quadrant pain (principal)
CPT/HCPCS: 36415; 80048; 80076; 83690; 85025; 99283

== ENCOUNTER 2025-01-26 14:55 | Emergency (ER) | payer OTHER, SELFPAY ==
--- NOTE | ~2025-01-26 | XR_ITS ---
CLINICAL HISTORY: sob, cough Chest X-ray, 2 Views COMPARISON: CR - XR CHEST 2V - 11/03/24 16:45 EDT FINDINGS: No consolidation. No pleural effusion. No pneumothorax. No cardiomegaly. No acute fracture. IMPRESSION: No acute findings. This document has been electronically signed by: Maynor Branch MD on 01/26/2025 16:20:28
[2025-01-26 15:02] VITALS: BP 117/73; PULSE 100; RESP 19; TEMP 36.4; O2SAT 97; BMI 24.7
--- NOTE | 2025-01-26 15:02 | ED_ITS ---
HPI - URI/Sore Throat General Chief Complaint: Upper Respiratory Symptoms Stated Complaint: asthma Time Seen by Provider: 01/26/25 15:16 History of Present Illness ED Provider: Benjamin HENRY Narrative: The patient is a 29-year-old male who says that he has a history of asthma. He says he is normally able to manage his asthma with the albuterol inhaler. He does not have a primary care doctor. He says that the albuterol inhaler he has been relying on has run out. He feels that he has had some worsening shortness of breath over the last 2-3 days. He has had no fever, sweats, chills. He comes to the emergency room for treatment of his asthma. Related Data Previous Rx's ?Medication ?Instructions ?Recorded fluticasone furoate 100 1 ea inhalation RDAILY #1 ea 07/09/22 mcg-vilanterol 25 mcg/dose inhalation powder (Breo Ellipta) sertraline 25 mg tablet 50 mg (2 x 25 mg) PO DAILY #30 tabs 09/23/22 FlagTap, OUD (Reset-O #1 ea 09/30/22 Digital Brandy (OUD)) buprenorphine 12 mg-naloxone 3 mg 1 film sublingual Q24H #7 ea 10/07/22 sublingual film (Suboxone) albuterol sulfate 2.5 mg/3 mL 2.5 mg (3 mL) inhalation Q4-6H PRN 10/23/22 (0.083 %) solution for nebulization shortness of breath or wheezing #180 mL albuterol sulfate 90 mcg/actuation 2 puff inhalation Q4-6H PRN 10/23/22 aerosol inhaler shortness of breath or wheezing #6.7 grams cyclobenzaprine 10 mg tablet 10 mg PO TID PRN muscle spasm #14 04/01/23 tabs ibuprofen 600 mg tablet 600 mg PO Q8H PRN pain #14 tabs 04/01/23 lidocaine 5 % topical patch 1 patch topical DAILY #15 ea 04/01/23 naproxen 500 mg tablet 500 mg PO BID PRN pain #20 tabs 04/29/23 albuterol sulfate 90 mcg/actuation 2 inh inhalation Q20M PRN 12/04/23 aerosol inhaler shortness of breath or wheezing #8.5 grams prednisone 20 mg tablet 40 mg (2 x 20 mg) PO DAILY 5 days 12/04/23 #10 tabs albuterol sulfate 90 mcg/actuation 2 puff inhalation Q4-6H PRN 12/16/23 aerosol inhaler (Ventolin HFA) shortness of breath or wheezing #8.5 grams prednisone 50 mg tablet 50 mg PO DAILY 4 days #4 tabs 12/16/23 albuterol sulfate 90 mcg/actuation 2 inh inhalation Q4-6H PRN 01/18/24 breath activated powder inhaler shortness of breath or wheezing #1 ea prednisone 20 mg tablet 40 mg (2 x 20 mg) PO DAILY 4 days 01/18/24 #8 tabs albuterol sulfate 90 mcg/actuation 2 puff inhalation Q6H PRN 06/12/24 aerosol inhaler shortness of breath or wheezing #8.5 grams prednisone 20 mg tablet 40 mg (2 x 20 mg) PO DAILY #10 tabs 06/12/24 albuterol sulfate 90 mcg/actuation 2 inh inhalation Q4-6H PRN 06/28/24 breath activated powder inhaler shortness of breath or wheezing #1 ea prednisone 20 mg tablet 40 mg (2 x 20 mg) PO DAILY #8 tabs 06/28/24 acetaminophen 500 mg tablet 500 - 1,000 mg (1 - 2 x 500 mg) PO 08/05/24 (Tylenol Extra Strength) Q6H PRN pain #30 tabs clindamycin HCl 300 mg capsule 300 mg PO TID 7 days #21 caps 08/05/24 ibuprofen 600 mg tablet 600 mg PO Q6H PRN pain #30 tabs 08/05/24 albuterol sulfate 90 mcg/actuation 1 puff inhalation QID #8.5 grams 11/03/24 aerosol inhaler prednisone 20 mg tablet See Rx Instructions .Route 11/03/24 .COMPLEX 12 days #26 tabs albuterol sulfate 90 mcg/actuation 2 puff inhalation Q4-6H PRN 01/26/25 aerosol inhaler shortness of breath or wheezing #8.5 grams prednisone 20 mg tablet 20 mg PO DAILY #12 tabs 01/26/25 Allergies Allergy/AdvReac Type Severity Reaction Status Date / Time seafood Allergy Severe Anaphylaxis Verified 01/26/25 15:03 Penicillins [PENICILLINS] Allergy Intermediate RASH Verified 01/26/25 15:03 Review of Systems 2 Review of Systems: Yes all other systems are reviewed and are negative [facility] Past Medical History Medical History Substance abuse Alcohol abuse Depression Opioid use disorder Asthma Social History Social History Household Members: Family Household Members Other:: Mom Housing: House Do you presently have visiting nurse or other home services: No Unable to assess alcohol history related to: Unknown Alcohol intake: former Patient Tobacco Use Status: Current everyday Tobacco user Tobacco use type: Cigarette Cigarette Packs Per Day: 1 Cigarettes Per Day: 20.0 e-Cigarette/Vaping Use: Currently Using Substance Use Type: Heroin Advance Directives: No Advance Directives Information Provided: No Do you have a plan to hurt others: No Plan service: No Current occupational status: employed Current occupation: right hand dominant Physical Exam 2 Vital Signs: Vital Signs: Last Vital Signs Temp 97.5 F 01/26/25 15:02 Pulse 100 01/26/25 15:19 Resp 18 01/26/25 15:19 BP 117/73 01/26/25 15:02 Pulse Ox 97 01/26/25 15:02 O2 Del Method Room Air 01/26/25 15:02 BMI result Body Mass Index 24.7 Const: Other: The patient is awake, alert, pleasant, cooperative he does not appear in obvious distress. Orientation/consciousness: patient oriented x3 HEENT: Other: Face is symmetrical, mucous membranes moist, airway clear Eyes: General: appearance normal, both eyes and all related structures Neck: Neck: Yes normal visual inspection and Yes full ROM Resp: Other: No increased work of breathing. Slight wheezing throughout all lung ott. Cardio: Rate: regular rate Rhythm: regular rhythm Heart sounds: S1 normal heart sound present and S2 normal heart sound present Skin: General skin exam: no rashes or lesions noted Neuro: General: patient oriented x3, gait normal, tone normal, moves all extremities, no focal motor deficits and CN's II-XI intact bilaterally Extrem: General: Yes no pedal edema and Yes no calf tenderness Course Course Course Narrative: This is a Rapid Medical Exam performed in triage by Juanita Ramirez PA-C. Full HPI, ROS and PE to be performed by primary ED provider. 29 yo M w/pmhx asthma presenting to the ED c/o cough, SOB x yesterday. Admits his inhaler is almost empty. denies fever/chills, CP. denies recent steroid use or travel PE: dry cough appreciated, exp wheeze appreciated throughout Plan: Labs, CXR, SARs, ED bronch protocol Medications Administered Discontinued Medications Generic Name Dose Route Start Last Admin Trade Name Neela PRN Reason Stop Dose Admin Albuterol Sulfate 2.5 mg/ 0 mg 01/26/25 15:14 01/26/25 15:18 Albuterol/Ipratropium 3 ml INHALE 01/26/25 15:15 5 dose ONCE ONE Administration Medical Decision Making Medical Decision Making MDM Narrative: The patient is a 29-year-old male who presents requesting a prescription for an asthma inhaler. He says that he has had mild asthma in the past and usually gets by with the an inhaler but his current inhaler has run out. At the time that I saw the patient he has been waiting for some time and he was very eager to be discharged from the emergency room. He was very eager simply to get a prescription for a new inhaler and he was also willing to take a course of prednisone. He looks entirely well. He has a normal chest x-ray. Basic labs are unremarkable. The patient has heart rate was 100 but he was otherwise hemodynamically stable. He does not have a primary care doctor. I have sent a prescription for an albuterol inhaler and a course of 5 days of prednisone to his pharmacy. He says he will go directly to the pharmacy to pick these up. Does not have a PCP. He was given contact information for PCP offices in [place]. He lives in [place]. He should return if worse. Lab Data 01/26/25 15:29 01/26/25 15:29 Labs: Lab Results 01/26/25 Range/Units 15:29 WBC 5.6 (4.8-10.8) X10*3/uL RBC 4.92 (4.60-5.80) X10*6/uL Hgb 14.3 (14.0-18.0) g/dl Hct 41.1 L (42.0-52.0) % MCV 83.5 (80.0-98.0) fL MCH 29.1 (27.0-33.0) pg MCHC 34.8 (31.0-36.0) g/dl RDW 13.4 (11.0-16.0) % Plt Count 244 (160-400) X10*3/uL MPV 10.4 (9.4-12.4) fL Immature Gran % (Auto) 0.2 (0.0-0.4) % Neut % (Auto) 59.1 (45-73) % Lymph % (Auto) 27.2 (20-40) % [place] % (Auto) 10.8 (2-11) % Eos % (Auto) 2.3 (0-4) % Baso % (Auto) 0.4 (0-2) % Lymph # (Auto) 1.5 (1.2-4.9) X10*3/uL [place] # (Auto) 0.6 (0.1-1.2) X10*3/uL Eos # (Auto) 0.1 (0.0-0.4) X10*3/uL Baso # (Auto) 0.0 (0.0-0.2) X10*3/uL Abs Immat Gran (auto) 0.01 (0.00-0.03) X10*3/uL Absolute Neuts (auto) 3.3 (2.0-8.3) x10*3/uL Absolute Nucleated RBC 0.000 (0.0-0.012) X10*3/uL Nucleated RBC % (auto) 0.0 (0.0-0.2) /100WBC Sodium 144 (135-145) mmol/L Potassium 3.7 (3.3-5.1) mmol/L Chloride 104 (96-108) mmol/L Carbon Dioxide 28 (22-29) mmol/L Anion Gap 16 (12-20) BUN 15 (9-16) mg/dL Creatinine 0.75 (0.5-1.4) mg/dL Estim Creat Clear Calc 142.7 Estimated GFR > 60 Random Glucose 137 H (60-115) mg/dL Calcium 9.0 (8.4-10.2) mg/dL Influenza Type A (PCR) NEGATIVE (Negative) Influenza Type B (PCR) NEGATIVE (Negative) RSV RNA Qual (PCR) NEGATIVE (Negative) SARS-CoV-2 RNA (RT-PCR) NEGATIVE (Negative) Discharge Plan Discharge Clinical Impression: Asthma with acute exacerbation Patient Disposition: Home, Self-Care Additional Instructions: Please grain picker the prescriptions for the inhaler and the prednisone today. Take your 1st dose of prednisone today, 3 tablets of the 20 mg tablets. Then take the other prednisone once a day as prescribed. Use the albuterol inhaler 2 puffs every 4 hours as needed for shortness of breath. Please work on getting a primary care doctor. Return to the emergency room if you feel significantly worse. Prescriptions: New albuterol sulfate 90 mcg/actuation HFA aerosol inhaler 2 puff inhalation Q4-6H PRN (Reason: shortness of breath or wheezing) Qty: 8.5 0RF prednisone 20 mg tablet 20 mg PO DAILY Qty: 12 0RF Rx Instructions: Take 3 tablets by mouth daily for 2 days then take 2 tablets by mouth daily for 3 days. No Action fluticasone furoate-vilanterol [Breo Ellipta] 100-25 mcg/dose Blister With Device 1 ea inhalation RDAILY Qty: 1 0RF albuterol sulfate 90 mcg/actuation HFA aerosol inhaler 2 puff inhalation Q4-6H PRN (Reason: shortness of breath or wheezing) Qty: 6.7 3RF Rx Instructions: May dispense medication equivalent accepted by patient's insurance albuterol sulfate 2.5 mg /3 mL (0.083 %) solution for nebulization 2.5 mg inhalation Q4-6H PRN (Reason: shortness of breath or wheezing) Qty: 180 2RF Rx Instructions: May dispense medication equivalent accepted by patient's insurance cyclobenzaprine 10 mg tablet 10 mg PO TID PRN (Reason: muscle spasm) Qty: 14 0RF ibuprofen 600 mg tablet 600 mg PO Q8H PRN (Reason: pain) Qty: 14 0RF lidocaine 5 % adhesive patch,medicated 1 patch topical DAILY Qty: 15 0RF Rx Instructions: leave on most painful area for up to 12 hrs prednisone 20 mg tablet 40 mg PO DAILY Qty: 10 0RF albuterol sulfate 90 mcg/actuation HFA aerosol inhaler 2 puff inhalation Q6H PRN (Reason: shortness of breath or wheezing) Qty: 8.5 0RF prednisone 20 mg tablet 40 mg PO DAILY Qty: 8 0RF albuterol sulfate 90 mcg/actuation aerosol powdr breath activated 2 inh inhalation Q4-6H PRN (Reason: shortness of breath or wheezing) Qty: 1 0RF albuterol sulfate 90 mcg/actuation HFA aerosol inhaler 1 puff inhalation QID Qty: 8.5 0RF prednisone 20 mg tablet See Rx Instructions .ROUTE .COMPLEX 12 Days Qty: 26 0RF Rx Instructions: 20 mg orally, Take 3 tablets for 5 days THEN; Take 2 tablets for 4 days THEN; Take 1 tablet for 3 days naproxen 500 mg tablet 500 mg PO BID PRN (Reason: pain) Qty: 20 0RF albuterol sulfate 90 mcg/actuation HFA aerosol inhaler 2 inh inhalation Q20M PRN (Reason: shortness of breath or wheezing) Qty: 8.5 0RF prednisone 20 mg tablet 40 mg PO DAILY 5 Days Qty: 10 0RF albuterol sulfate [Ventolin HFA] 90 mcg/actuation HFA aerosol inhaler 2 puff inhalation Q4-6H PRN (Reason: shortness of breath or wheezing) Qty: 8.5 1RF prednisone 50 mg tablet 50 mg PO DAILY 4 Days Qty: 4 0RF albuterol sulfate 90 mcg/actuation aerosol powdr breath activated 2 inh inhalation Q4-6H PRN (Reason: shortness of breath or wheezing) Qty: 1 0RF prednisone 20 mg tablet 40 mg PO DAILY 4 Days Qty: 8 0RF clindamycin HCl 300 mg capsule 300 mg PO TID 7 Days Qty: 21 0RF ibuprofen 600 mg tablet 600 mg PO Q6H PRN (Reason: pain) Qty: 30 0RF acetaminophen [Tylenol Extra Strength] 500 mg tablet 500 - 1,000 mg PO Q6H PRN (Reason: pain) Qty: 30 0RF sertraline 25 mg tablet 50 mg PO DAILY Qty: 30 0RF (DME) Reset-O Digital Brandy (OUD) Replaced By [facility] See Rx Instructions .MEDSUPPLY Qty: 1 3RF Rx Instructions: As directed (3-4 times a week) 84 days buprenorphine-naloxone [Suboxone] 12-3 mg film 1 film sublingual Q24H Qty: 7 0RF Referrals: [facility] [Provider Group] [facility] [place] [Provider Group] [facility] [Provider Group] Matilde Amato MD [Physician] - Print Language: Urdu
--- NOTE | 2025-01-26 15:04 | ECG_ITS ---
Test Reason : asthma Blood Pressure : */* mmHG Vent. Rate : 106 BPM Atrial Rate : 106 BPM P-R Int : 180 ms QRS Dur : 100 ms QT Int : 342 ms P-R-T Axes : 72 89 6 degrees QTcB Int : 454 ms Sinus tachycardia T wave abnormality, consider inferior ischemia Abnormal ECG When compared with ECG of 29-Nov-2024 23:55, Vent. rate has increased by 41 bpm QT has lengthened Referred By: Juanita Ramirez Electronically Signed By: CHARO AWAN MD
[2025-01-26] MEDS: Albuterol Sulfate 2.5 MG, Albuterol/Iprat 2.5/0.5MG 3 ML 3 ML INHALE (15:18)
[2025-01-26 15:19] VITALS: PULSE 100; RESP 18; O2SAT 97
[2025-01-26 15:34] LABS: MANUAL DIFF FLAG NO
[2025-01-26 15:44] LABS: Basophils Percent Auto 0.4 % (0-2); Eosinophils Absolute Auto 0.1 X10*3/uL (0.0-0.4); Eosinophils Percent Auto 2.3 % (0-4); Hematocrit 41.1 % (42.0-52.0); Hemoglobin 14.3 g/dl (14.0-18.0); Imm Gran Abs Auto 0.01 X10*3/uL (0.00-0.03); Imm Gran Pct Auto 0.2 % (0.0-0.4); Lymphocytes Absolute Auto 1.5 X10*3/uL (1.2-4.9); Lymphocytes Percent Auto 27.2 % (20-40); Mean Corpuscular HGB Conc 34.8 g/dl (31.0-36.0); Mean Corpuscular Hemoglobin 29.1 pg (27.0-33.0); Mean Corpuscular Volume 83.5 fL (80.0-98.0); Mean Platelet Volume 10.4 fL (9.4-12.4); Monocytes Absolute Auto 0.6 X10*3/uL (0.1-1.2); Monocytes Percent Auto 10.8 % (2-11); Neutrophils Absolute Auto 3.3 x10*3/uL (2.0-8.3); Neutrophils Percent Auto 59.1 % (45-73); Platelet Count 244 X10*3/uL (160-400); Red Blood Count 4.92 X10*6/uL (4.60-5.80); Red Cell Distribution Width 13.4 % (11.0-16.0); White Blood Count 5.6 X10*3/uL (4.8-10.8)
[2025-01-26 15:53] LABS: Anion Gap 16 (12-20); Blood Urea Nitrogen 15 mg/dL (9-16); Carbon Dioxide 28 mmol/L (22-29); Chloride 104 mmol/L (96-108); Creatinine Clr Calc Pharmacy 142.7; Estimated Glomerular Filt Rate > 60; Glucose Random 137 mg/dL (60-115); Potassium 3.7 mmol/L (3.3-5.1); Sodium 144 mmol/L (135-145)
[2025-01-26 16:14] LABS: Influenza A PCR NEGATIVE (Negative); Influenza B PCR NEGATIVE (Negative); Resp Syncy Virus RNA Qual PCR NEGATIVE (Negative); SARS COV2 PCR INHOUSE NEGATIVE (Negative)
[2025-01-26 17:01] VITALS: BP 117/73; PULSE 100; RESP 18; TEMP 36.4; O2SAT 97
== END 2025-01-26 17:01 | disposition home or self-care (01) ==
PROVIDERS: Physician Assistant; Emergency Provider Emergency Medicine; PCP Nurse Practitioner Family
DX: J45.901 Unspecified asthma with (acute) exacerbation (principal); R00.0 Tachycardia, unspecified; Z03.818 Encounter for observation for suspected exposure to other biological agents ruled out; F17.210 Nicotine dependence, cigarettes, uncomplicated
CPT/HCPCS: 0241U; 36415; 71046; 80048; 85025; 93005; 94640; 99284

== ENCOUNTER → 2025-01-26 15:04 | Outpatient (BNV) | payer OTHER, SELFPAY | PROVIDERS: Emergency Provider Emergency Medicine; PCP Nurse Practitioner Family; Visit Provider Radiology Diagnostic Radiology | DX: R06.02 Shortness of breath (principal) | CPT/HCPCS: 71046 ==

== ENCOUNTER → 2025-01-26 15:04 | Outpatient (BNV) | payer OTHER, SELFPAY | PROVIDERS: Emergency Provider Emergency Medicine; PCP Nurse Practitioner Family; Visit Provider Internal Medicine Cardiovascular Disease | DX: R00.0 Tachycardia, unspecified (principal) | CPT/HCPCS: 93010 ==

== ENCOUNTER 2025-01-31 21:17 | Emergency (ER) | payer OTHER, SELFPAY ==
--- NOTE | 2025-01-31 21:45 | ECG_ITS ---
Test Reason : SUBSTANCE ABUSE Blood Pressure : */* mmHG Vent. Rate : 96 BPM Atrial Rate : 96 BPM P-R Int : 152 ms QRS Dur : 94 ms QT Int : 336 ms P-R-T Axes : 81 90 35 degrees QTcB Int : 424 ms Normal sinus rhythm Possible Left atrial enlargement Rightward axis ST elevation, consider early repolarization Borderline ECG When compared with ECG of 26-Jan-2025 15:44, T wave inversion no longer evident in Inferior leads Referred By: Rock Barnard Electronically Signed By: CHARO AWAN MD
--- OUTSIDE RECORDS SUMMARY | 2025-01-31 22:23 | XMS_ITS | Clinical Summary ---
Author Organization [facility] Address [address] [place] [address] Care Team Providers Care Sample Color Maker Name Role Phone Unavailable Primary Care Provider [...] patient's age to complete this topic Insurance [facility]
--- NOTE | 2025-01-31 22:52 | ED_ITS ---
HPI - General Adult General Chief complaint: Psychiatric Symptoms Stated complaint: high off pcp Time Seen by Provider: 01/31/25 21:37 Source: patient, RN notes reviewed and old records reviewed Mode of arrival: EMS Limitations: no limitations History of Present Illness ED Provider: Akil HENRY narrative: 29-year-old male with medical history significant for asthma, substance abuse presents for evaluation of depression apparently there was an argument at his home with his mother. He was using PCP which she admits to. The patient reports that he is depressed and occasionally has thoughts of harming himself, but currently is not suicidal he initially requested discharge however when I discussed that we are here to help him if he wants and if he would like help with his depression he agreed to stay to speak with the care team, he was not placed on a section at the time of arrival he denies any somatic complain Related Data Previous Rx's ?Medication ?Instructions ?Recorded fluticasone furoate 100 1 ea inhalation RDAILY #1 ea 07/09/22 mcg-vilanterol 25 mcg/dose inhalation powder (Breo Ellipta) sertraline 25 mg tablet 50 mg (2 x 25 mg) PO DAILY #30 tabs 09/23/22 digital therapeutics, OUD (Reset-O #1 ea 09/30/22 Digital Brandy (OUD)) buprenorphine 12 mg-naloxone 3 mg 1 film sublingual Q24H #7 ea 10/07/22 sublingual film (Suboxone) albuterol sulfate 2.5 mg/3 mL 2.5 mg (3 mL) inhalation Q4-6H PRN 10/23/22 (0.083 %) solution for nebulization shortness of breath or wheezing #180 mL albuterol sulfate 90 mcg/actuation 2 puff inhalation Q4-6H PRN 10/23/22 aerosol inhaler shortness of breath or wheezing #6.7 grams cyclobenzaprine 10 mg tablet 10 mg PO TID PRN muscle spasm #14 04/01/23 tabs ibuprofen 600 mg tablet 600 mg PO Q8H PRN pain #14 tabs 04/01/23 lidocaine 5 % topical patch 1 patch topical DAILY #15 ea 04/01/23 naproxen 500 mg tablet 500 mg PO BID PRN pain #20 tabs 04/29/23 albuterol sulfate 90 mcg/actuation 2 inh inhalation Q20M PRN 12/04/23 aerosol inhaler shortness of breath or wheezing #8.5 grams prednisone 20 mg tablet 40 mg (2 x 20 mg) PO DAILY 5 days 12/04/23 #10 tabs albuterol sulfate 90 mcg/actuation 2 puff inhalation Q4-6H PRN 12/16/23 aerosol inhaler (Ventolin HFA) shortness of breath or wheezing #8.5 grams prednisone 50 mg tablet 50 mg PO DAILY 4 days #4 tabs 12/16/23 albuterol sulfate 90 mcg/actuation 2 inh inhalation Q4-6H PRN 01/18/24 breath activated powder inhaler shortness of breath or wheezing #1 ea prednisone 20 mg tablet 40 mg (2 x 20 mg) PO DAILY 4 days 01/18/24 #8 tabs albuterol sulfate 90 mcg/actuation 2 puff inhalation Q6H PRN 06/12/24 aerosol inhaler shortness of breath or wheezing #8.5 grams prednisone 20 mg tablet 40 mg (2 x 20 mg) PO DAILY #10 tabs 06/12/24 albuterol sulfate 90 mcg/actuation 2 inh inhalation Q4-6H PRN 06/28/24 breath activated powder inhaler shortness of breath or wheezing #1 ea prednisone 20 mg tablet 40 mg (2 x 20 mg) PO DAILY #8 tabs 06/28/24 acetaminophen 500 mg tablet 500 - 1,000 mg (1 - 2 x 500 mg) PO 08/05/24 (Tylenol Extra Strength) Q6H PRN pain #30 tabs clindamycin HCl 300 mg capsule 300 mg PO TID 7 days #21 caps 08/05/24 ibuprofen 600 mg tablet 600 mg PO Q6H PRN pain #30 tabs 08/05/24 albuterol sulfate 90 mcg/actuation 1 puff inhalation QID #8.5 grams 11/03/24 aerosol inhaler prednisone 20 mg tablet See Rx Instructions .Route 11/03/24 .COMPLEX 12 days #26 tabs albuterol sulfate 90 mcg/actuation 2 puff inhalation Q4-6H PRN 01/26/25 aerosol inhaler shortness of breath or wheezing #8.5 grams prednisone 20 mg tablet 20 mg PO DAILY #12 tabs 01/26/25 Allergies Allergy/AdvReac Type Severity Reaction Status Date / Time seafood Allergy Severe Anaphylaxis Verified 01/31/25 23:01 Penicillins [PENICILLINS] Allergy Intermediate RASH Verified 01/31/25 23:01 Review of Systems 2 Constitutional: Constitutional: Denies body ache(s), Denies chills and Denies fever(s) Eyes: Eyes: Denies blurry vision ENT: Denies vertigo, Denies dizziness and Denies lip swelling Cardiovascular: Cardiovascular: Denies chest pain and Denies dyspnea Respiratory: Respiratory: Denies cough and Denies dyspnea Gastrointestinal: Gastrointestinal: Denies abdominal pain, Denies nausea and Denies vomiting Musculoskeletal: Musculoskeletal: Denies back pain, Reports arthralgias, Reports joint swelling and Reports limited range of motion Integumentary/Breasts: Skin/Breast: Denies rash Neurologic: Denies vertigo and Denies dizziness Allergic/Immunologic: Allergic/Immunologic: Denies lip swelling PMFSH Past Medical History Medical History Substance abuse Alcohol abuse Depression Opioid use disorder Asthma Social History Social History Household Members: Family Household Members Other:: Mom Housing: House Do you presently have visiting nurse or other home services: No Unable to assess alcohol history related to: Unknown Alcohol intake: former Patient Tobacco Use Status: Current everyday Tobacco user Tobacco use type: Cigarette Cigarette Packs Per Day: 1 Cigarettes Per Day: 20.0 Smoked in Last 30 Days: Yes e-Cigarette/Vaping Use: Currently Using Use of substances other than those prescribed or required for medical reasons: Yes Substance Use Type: Marijuana and Other Substance Use Type Other:: PCP Substance Use Frequency: Daily Last Used Substance: Just Prior to Admission Advance Directives: No Advance Directives Information Provided: No Do you have a plan to hurt others: No Plan service: No Current occupational status: employed Current occupation: right hand dominant Physical Exam ED Vital Signs: Vital Signs - 24 hr 01/31/25 22:59 Respiratory Rate 16 BMI result Body Mass Index 25.1 Const General: healthy appearing, comfortable, no acute distress, alert and awake Nutritional Appearance: well nourished Orientation/consciousness: patient oriented x3 HENMT Head: Yes normocephalic and Yes atraumatic Eyes Eyelids: Yes eyelids normal Conjunctivae: conjunctivae normal Sclerae: sclerae normal Corneas: corneas normal Pupils: Equal, round and reactive pupils present EOM: EOMs intact bilaterally Neck Neck: Yes full ROM and Yes no meningeal signs Resp Effort & Inspection: normal respiratory effort, able to speak in complete sentences and not labored GI Inspection: No distended Palpation (GI): Soft to palpation, not firm, nontender, no guarding and not rigid Skin General skin exam: elasticity normal Neuro General: patient oriented x3 and no meningeal signs Cranial nerves: Yes CN's II-XII intact bilaterally, Yes Equal, round and reactive pupils present and Yes Bilaterally intact EOM present Cognition (Neuro): normal cognition Extrem Other: Moving all extremities well without any obvious deformities Psych Appearance: grossly normal Speech and movement: Psychomotor agitation in speech present Affect: Hostile affect present Attitude: cooperative Thought process: Normal thought process present Thought content: suicidality, no homicidality, no hallucinations and Depressive thoughts present Insight: Limited insight present (Psych) Judgement: Limited judgement present (Psych) Course Reevaluation(s) Reevaluation #1: the patient asked to be discharged. On discussion with him again, he reports that he feels comfortable being discharged, he is not suicidal but does admit to some depression. He is open to outpatient resources. I discussed return precautions with him. The patient is awake, alert and oriented Time: 00:15 Medications Administered Discontinued Medications Generic Name Dose Route Start Last Admin Trade Name Freq PRN Reason Stop Dose Admin Albuterol Sulfate 4 puff 01/31/25 22:26 01/31/25 22:59 Albuterol Sulfate 90 Mcg 8 Gm Inhaler INHALE 01/31/25 22:27 4 puff ONCE ONE Administration Medical Decision Making Medical Decision Making MDM Narrative: 29-year-old male presents for evaluation of depression. He is not suicidal but admits to occasionally having suicidal thoughts. He admits to PCP use. He is somewhat hostile on arrival but I was able to redirect the patient. the patient initially requested discharge, he is alert and oriented in his not suicidal, however he did reports that he does have some depressive thoughts in his interested in help, he will be medically cleared and evaluated by the care team. Differential Diagnosis Differential Diagnoses: The differential diagnosis associated with the presentation includes Substance abuse Depression Schizoaffective disorder Bipolar disorder Polysubstance abuse Lab Data 01/31/25 23:16 01/31/25 23:16 Labs: Lab Results 01/31/25 Range/Units 23:16 WBC 11.7 H (4.8-10.8) X10*3/uL RBC 5.32 (4.60-5.80) X10*6/uL Hgb 15.3 (14.0-18.0) g/dl Hct 44.7 (42.0-52.0) % MCV 84.0 (80.0-98.0) fL MCH 28.8 (27.0-33.0) pg MCHC 34.2 (31.0-36.0) g/dl RDW 13.4 (11.0-16.0) % Plt Count 342 D (160-400) X10*3/uL MPV 10.1 (9.4-12.4) fL Immature Gran % (Auto) 0.3 (0.0-0.4) % Neut % (Auto) 70.4 (45-73) % Lymph % (Auto) 15.8 L (20-40) % [place]ink[place] % (Auto) 12.1 H (2-11) % Eos % (Auto) 1.1 (0-4) % Baso % (Auto) 0.3 (0-2) % Lymph # (Auto) 1.9 (1.2-4.9) X10*3/uL [place]ink[place] # (Auto) 1.4 H (0.1-1.2) X10*3/uL Eos # (Auto) 0.1 (0.0-0.4) X10*3/uL Baso # (Auto) 0.0 (0.0-0.2) X10*3/uL Abs Immat Gran (auto) 0.04 H (0.00-0.03) X10*3/uL Absolute Neuts (auto) 8.2 (2.0-8.3) x10*3/uL Absolute Nucleated RBC 0.000 (0.0-0.012) X10*3/uL Nucleated RBC % (auto) 0.0 (0.0-0.2) /100WBC Sodium 140 (135-145) mmol/L Potassium 3.7 (3.3-5.1) mmol/L Chloride 104 (96-108) mmol/L Carbon Dioxide 27 (22-29) mmol/L Anion Gap 13 (12-20) BUN 14 (9-16) mg/dL Creatinine 0.98 (0.5-1.4) mg/dL Estim Creat Clear Calc 109.2 Estimated GFR > 60 Random Glucose 127 H (60-115) mg/dL Calcium 9.1 (8.4-10.2) mg/dL Total Bilirubin 0.8 (0.0-1.0) mg/dL AST 40 H (5-37) U/L ALT 24 (0-40) U/L Alkaline Phosphatase 105 (39-117) U/L Total Protein 7.5 (6.5-8.0) g/dL Albumin 4.7 (3.5-5.0) g/dL Salicylates < 5.0 L (15-30) mg/dL Acetaminophen < 3 (<30) mcg/mL Ethyl Alcohol < 10 mg/dL Discharge Plan Discharge Clinical Impression: Depression, Substance abuse Patient Disposition: Home, Self-Care Instructions: Depression (ED), Polysubstance Use Disorder (ED) Additional Instructions: You were seen in our Emergency Department today for treatment of a behavioral health issue. It is important after your visit that you follow up with either your behavioral health provider or a primary care doctor within 7 days.? If you have trouble finding a therapist you can reach out to [place] [phone] The National Suicide and Crisis Lifeline can be reached 7 days a week 24 hours a day.? Call 988 to speak with someone.? Return for any worsening symptoms or concerns such as thoughts of self harm or harm to others. Please call 911 if you feel your mental health is worsening.? Prescriptions: No Action fluticasone furoate-vilanterol [Breo Ellipta] 100-25 mcg/dose Blister With Device 1 ea inhalation RDAILY Qty: 1 0RF albuterol sulfate 90 mcg/actuation HFA aerosol inhaler 2 puff inhalation Q4-6H PRN (Reason: shortness of breath or wheezing) Qty: 6.7 3RF Rx Instructions: May dispense medication equivalent accepted by patient's insurance albuterol sulfate 2.5 mg /3 mL (0.083 %) solution for nebulization 2.5 mg inhalation Q4-6H PRN (Reason: shortness of breath or wheezing) Qty: 180 2RF Rx Instructions: May dispense medication equivalent accepted by patient's insurance cyclobenzaprine 10 mg tablet 10 mg PO TID PRN (Reason: muscle spasm) Qty: 14 0RF ibuprofen 600 mg tablet 600 mg PO Q8H PRN (Reason: pain) Qty: 14 0RF lidocaine 5 % adhesive patch,medicated 1 patch topical DAILY Qty: 15 0RF Rx Instructions: leave on most painful area for up to 12 hrs prednisone 20 mg tablet 40 mg PO DAILY Qty: 10 0RF albuterol sulfate 90 mcg/actuation HFA aerosol inhaler 2 puff inhalation Q6H PRN (Reason: shortness of breath or wheezing) Qty: 8.5 0RF prednisone 20 mg tablet 40 mg PO DAILY Qty: 8 0RF albuterol sulfate 90 mcg/actuation aerosol powdr breath activated 2 inh inhalation Q4-6H PRN (Reason: shortness of breath or wheezing) Qty: 1 0RF albuterol sulfate 90 mcg/actuation HFA aerosol inhaler 1 puff inhalation QID Qty: 8.5 0RF prednisone 20 mg tablet See Rx Instructions .ROUTE .COMPLEX 12 Days Qty: 26 0RF Rx Instructions: 20 mg orally, Take 3 tablets for 5 days THEN; Take 2 tablets for 4 days THEN; Take 1 tablet for 3 days naproxen 500 mg tablet 500 mg PO BID PRN (Reason: pain) Qty: 20 0RF albuterol sulfate 90 mcg/actuation HFA aerosol inhaler 2 inh inhalation Q20M PRN (Reason: shortness of breath or wheezing) Qty: 8.5 0RF prednisone 20 mg tablet 40 mg PO DAILY 5 Days Qty: 10 0RF albuterol sulfate [Ventolin HFA] 90 mcg/actuation HFA aerosol inhaler 2 puff inhalation Q4-6H PRN (Reason: shortness of breath or wheezing) Qty: 8.5 1RF prednisone 50 mg tablet 50 mg PO DAILY 4 Days Qty: 4 0RF albuterol sulfate 90 mcg/actuation aerosol powdr breath activated 2 inh inhalation Q4-6H PRN (Reason: shortness of breath or wheezing) Qty: 1 0RF prednisone 20 mg tablet 40 mg PO DAILY 4 Days Qty: 8 0RF clindamycin HCl 300 mg capsule 300 mg PO TID 7 Days Qty: 21 0RF ibuprofen 600 mg tablet 600 mg PO Q6H PRN (Reason: pain) Qty: 30 0RF acetaminophen [Tylenol Extra Strength] 500 mg tablet 500 - 1,000 mg PO Q6H PRN (Reason: pain) Qty: 30 0RF albuterol sulfate 90 mcg/actuation HFA aerosol inhaler 2 puff inhalation Q4-6H PRN (Reason: shortness of breath or wheezing) Qty: 8.5 0RF prednisone 20 mg tablet 20 mg PO DAILY Qty: 12 0RF Rx Instructions: Take 3 tablets by mouth daily for 2 days then take 2 tablets by mouth daily for 3 days. sertraline 25 mg tablet 50 mg PO DAILY Qty: 30 0RF (DME) Reset-O Digital Brandy (OUD) Misc See Rx Instructions .MEDSUPPLY Qty: 1 3RF Rx Instructions: As directed (3-4 times a week) 84 days buprenorphine-naloxone [Suboxone] 12-3 mg film 1 film sublingual Q24H Qty: 7 0RF Interventions: [place]-Suicide Risk Severity Scale Last Done: 01/31/25 22:50 Print Language: Turkmen
[2025-01-31 22:56] VITALS: BP 156/88; PULSE 117; O2SAT 94; BMI 25.1
[2025-01-31 22:59] VITALS: RESP 16
[2025-01-31] MEDS: Albuterol Sulfate 90 MCG 8 GM INHALER 4 PUFF INHALE (22:59)
[2025-01-31 23:20] LABS: MANUAL DIFF FLAG NO
[2025-01-31 23:21] LABS: Basophils Percent Auto 0.3 % (0-2); Eosinophils Absolute Auto 0.1 X10*3/uL (0.0-0.4); Eosinophils Percent Auto 1.1 % (0-4); Hematocrit 44.7 % (42.0-52.0); Hemoglobin 15.3 g/dl (14.0-18.0); Imm Gran Abs Auto 0.04 X10*3/uL (0.00-0.03); Imm Gran Pct Auto 0.3 % (0.0-0.4); Lymphocytes Absolute Auto 1.9 X10*3/uL (1.2-4.9); Lymphocytes Percent Auto 15.8 % (20-40); Mean Corpuscular HGB Conc 34.2 g/dl (31.0-36.0); Mean Corpuscular Hemoglobin 28.8 pg (27.0-33.0); Mean Platelet Volume 10.1 fL (9.4-12.4); Monocytes Absolute Auto 1.4 X10*3/uL (0.1-1.2); Monocytes Percent Auto 12.1 % (2-11); Neutrophils Absolute Auto 8.2 x10*3/uL (2.0-8.3); Neutrophils Percent Auto 70.4 % (45-73); Platelet Count 342 X10*3/uL (160-400); Red Blood Count 5.32 X10*6/uL (4.60-5.80); Red Cell Distribution Width 13.4 % (11.0-16.0); White Blood Count 11.7 X10*3/uL (4.8-10.8)
[2025-01-31 23:45] LABS: Acetaminophen LAB < 3 mcg/mL (<30); Alanine Aminotransferase 24 U/L (0-40); Albumin Level 4.7 g/dL (3.5-5.0); Alkaline Phosphatase 105 U/L (39-117); Anion Gap 13 (12-20); Aspartate Amino Transferase 40 U/L (5-37); Bilirubin Total 0.8 mg/dL (0.0-1.0); Blood Urea Nitrogen 14 mg/dL (9-16); Calcium 9.1 mg/dL (8.4-10.2); Carbon Dioxide 27 mmol/L (22-29); Chloride 104 mmol/L (96-108); Creatinine Clr Calc Pharmacy 109.2; Estimated Glomerular Filt Rate > 60; Ethanol < 10 mg/dL; Glucose Random 127 mg/dL (60-115); Potassium 3.7 mmol/L (3.3-5.1); Salicylate < 5.0 mg/dL (15-30); Sodium 140 mmol/L (135-145); Total Protein 7.5 g/dL (6.5-8.0)
== END 2025-01-31 23:00 | disposition home or self-care (01) ==
PROVIDERS: Physician Assistant; Emergency Provider Emergency Medicine
DX: F32.A Depression, unspecified (principal); F19.10 Other psychoactive substance abuse, uncomplicated
CPT/HCPCS: 36415; 80053; 80143; 80179; 80307; 85025; 93005; 94640; 94664; 99283; 99284; 99285

== ENCOUNTER → 2025-01-31 21:45 | Outpatient (BNV) | payer OTHER, SELFPAY | PROVIDERS: Emergency Provider Emergency Medicine; Visit Provider Internal Medicine Cardiovascular Disease | DX: F19.10 Other psychoactive substance abuse, uncomplicated (principal) | CPT/HCPCS: 93010 ==

== ENCOUNTER 2025-02-04 21:41 | Emergency (ER) | payer OTHER, SELFPAY ==
--- NOTE | ~2025-02-04 | XR_ITS ---
CLINICAL HISTORY: pain PA chest and three views of the right ribs Comparison: None provided Findings: No fractures or dislocations. The lungs are unremarkable. IMPRESSION: No acute rib fractures. This document has been electronically signed by: Nathaniel Aguilar MD on 02/04/2025 22:59:36
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
[2025-02-04 22:02] VITALS: BP 117/65; PULSE 78; RESP 18; TEMP 36.2; O2SAT 99; BMI 24.7
[2025-02-04] MEDS: Albuterol Sulfate 5 MG, Albuterol/Iprat 2.5/0.5MG 3 ML 3 ML INHALE (22:17)
[2025-02-04] MEDS: predniSONE 20 MG TABLET 40 MG PO (22:19)
[2025-02-04 22:30] VITALS: PULSE 86; RESP 26; O2SAT 99
[2025-02-04 23:23] VITALS: BP 133/72; PULSE 88; RESP 20; TEMP 36.4; O2SAT 96
== END 2025-02-04 23:24 | disposition home or self-care (01) ==
PROVIDERS: Emergency Provider Emergency Medicine
DX: R07.81 Pleurodynia (principal); J45.31 Mild persistent asthma with (acute) exacerbation; F19.10 Other psychoactive substance abuse, uncomplicated; F17.210 Nicotine dependence, cigarettes, uncomplicated; Z79.899 Other long term (current) drug therapy
CPT/HCPCS: 71101; 94640; 99283; 99284

== ENCOUNTER → 2025-02-04 22:01 | Outpatient (BNV) | payer OTHER, SELFPAY | PROVIDERS: Emergency Provider Emergency Medicine; Visit Provider Radiology Vascular & Interventional Radiology | DX: R07.89 Other chest pain (principal) | CPT/HCPCS: 71101 ==

== ENCOUNTER 2025-02-06 15:42 | Emergency (ER) | payer OTHER, SELFPAY ==
[2025-02-06] VITALS (15 sets, daily range): BP systolic 90–160; BP diastolic 37–76; PULSE 95–142; RESP 11–20; TEMP 36.4–38.4; O2SAT 84–95; BMI 25.1
--- NOTE | ~2025-02-06 | XR_ITS ---
CLINICAL HISTORY: sob 1 view chest x-ray Comparison: None provided Findings: Portions of the exam are obscured by overlying material. The lungs are clear. Heart size is normal. No acute fracture. IMPRESSION: 1. No acute findings. This document has been electronically signed by: Jean Pierre Patel MD on 02/06/2025 19:58:37
--- NOTE | 2025-02-06 15:53 | ED_ITS ---
HPI - Overdose General Chief Complaint: ETOH/Substance Use Stated Complaint: substance use, unk what drug Time Seen by Provider: 02/06/25 15:50 Source: EMS Mode of arrival: EMS Limitations: altered mental status History of Present Illness HPI Narrative: THIS IS A 29 YEARS OLD PATIENT WITH A HISTORY OF POLYSUBSTANCE ABUSE PRESENTED TO THE EMERGENCY DEPARTMENT WITH ALTERED MENTAL STATUS ACCORDING TO THE EMS HE USED PCP. HE ARRIVED DIAPHORETIC AGITATED MD complaint: accidental overdose Onset (ago): hour(s) (1) Intent: wanted to escape Related Data Previous Rx's ?Medication ?Instructions ?Recorded fluticasone furoate 100 1 ea inhalation RDAILY #1 ea 07/09/22 mcg-vilanterol 25 mcg/dose inhalation powder (Breo Ellipta) sertraline 25 mg tablet 50 mg (2 x 25 mg) PO DAILY # 30 tabs 09/23/22 [employer], OUD (Reset-O #1 ea 09/30/22 Digital Brandy (OUD)) buprenorphine 12 mg-naloxone 3 mg 1 film sublingual Q2 4H #7 ea 10/07/22 sublingual film (Suboxone) albuterol sulfate 2.5 mg/3 mL 2.5 mg (3 mL) inhalation Q4-6H PRN 10/23/22 (0.083 %) solution for nebulization shortness of breat h or wheezing #180 mL albuterol sulfate 90 mcg/actuation 2 puff inhalation Q 4-6H PRN 10/23/22 aerosol inhaler shortness of breath or wheez ing #6.7 grams cyclobenzaprine 10 mg tablet 10 mg PO TID PRN muscle s pasm #14 04/01/23 tabs ibuprofen 600 mg tablet 600 mg PO Q8H PRN pain #14 t abs 04/01/23 lidocaine 5 % topical patch 1 patch topical DAILY #15 ea 04/01/23 naproxen 500 mg tablet 500 mg PO BID PRN pain #20 t abs 04/29/23 albuterol sulfate 90 mcg/actuation 2 inh inhalation Q2 0M PRN 12/04/23 aerosol inhaler shortness of breath or wheez ing #8.5 grams prednisone 20 mg tablet 40 mg (2 x 20 mg) PO DAILY 5 days 12/04/23 #10 tabs albuterol sulfate 90 mcg/actuation 2 puff inhalation Q 4-6H PRN 12/16/23 aerosol inhaler (Ventolin HFA) shortness of breath or wheezing #8.5 grams prednisone 50 mg tablet 50 mg PO DAILY 4 days #4 tab s 12/16/23 albuterol sulfate 90 mcg/actuation 2 inh inhalation Q4 -6H PRN 01/18/24 breath activated powder inhaler shortness of breath or wheezing #1 ea prednisone 20 mg tablet 40 mg (2 x 20 mg) PO DAILY 4 days 01/18/24 #8 tabs albuterol sulfate 90 mcg/actuation 2 puff inhalation Q 6H PRN 06/12/24 aerosol inhaler shortness of breath or wheez ing #8.5 grams prednisone 20 mg tablet 40 mg (2 x 20 mg) PO DAILY # 10 tabs 06/12/24 albuterol sulfate 90 mcg/actuation 2 inh inhalation Q4 -6H PRN 06/28/24 breath activated powder inhaler shortness of breath or wheezing #1 ea prednisone 20 mg tablet 40 mg (2 x 20 mg) PO DAILY # 8 tabs 06/28/24 acetaminophen 500 mg tablet 500 - 1,000 mg (1 - 2 x 50 0 mg) PO 08/05/24 (Tylenol Extra Strength) Q6H PRN pain #30 tabs clindamycin HCl 300 mg capsule 300 mg PO TID 7 days #2 1 caps 08/05/24 ibuprofen 600 mg tablet 600 mg PO Q6H PRN pain #30 t abs 08/05/24 albuterol sulfate 90 mcg/actuation 1 puff inhalation Q ID #8.5 grams 11/03/24 aerosol inhaler prednisone 20 mg tablet See Rx Instructions .Route 0 11/03/24 .COMPLEX 12 days #26 tabs albuterol sulfate 90 mcg/actuation 2 puff inhalation Q 4-6H PRN 01/26/25 aerosol inhaler shortness of breath or wheez ing #8.5 grams prednisone 20 mg tablet 20 mg PO DAILY #12 tabs 04/14 prednisone 20 mg tablet 40 mg (2 x 20 mg) PO DAILY 4 days 02/04/25 #8 tabs albuterol sulfate 90 mcg/actuation 2 puff inhalation Q 6H PRN 02/06/25 aerosol inhaler shortness of breath or wheez ing #8.5 grams cefuroxime axetil 500 mg tablet 500 mg PO BID 10 days #20 tabs 02/06/25 doxycycline hyclate 100 mg tablet 100 mg PO BID #20 ta bs 02/06/25 Allergies Allergy/AdvReac Type Severity Reaction Status Date / Time seafood Allergy Severe Anaphylaxis Verified 02/06/25 16:01 Penicillins (PENICILLINS) Allergy Intermediate RASH Verified 02/06/25 16:01 Review of Systems 2 Review of Systems: Yes Unobtainable due to mental condition ON LICENSE OF [facility] Past Medical History ON LICENSE OF [facility] Narrative: POLYSUBSTANCE ABUSE Medical History Substance abuse Alcohol abuse Depression Opioid use disorder Asthma Social History Social History Household Members: Family Household Members Other:: Mom Housing: House Do you presently have visiting nurse or other home services: No Unable to assess alcohol history related to: Unable to respond Alcohol intake: former Patient Tobacco Use Status: Current everyday Tobacco user Tobacco use type: Cigarette Cigarette Packs Per Day: 1 Cigarettes Per Day: 20.0 e-Cigarette/Vaping Use: Currently Using Substance Use Type: Marijuana and Other service: No Current occupational status: employed Current occupation: right hand dominant Physical Exam 2 Vital Signs: Vital Signs: Last Vital Signs Temp 98.5 F 02/06/25 20:23 Pulse 117 H 02/06/25 20:23 Resp 18 02/06/25 20:23 BP 146/76 H 02/06/25 20:23 Pulse Ox 94 02/06/25 20:23 O2 Del Method Room Air 02/06/25 20:23 O2 Flow Rate 6 02/06/25 17:56 BMI result Body Mass Index 25.1 HE APPEAR DIAPHORETIC AGITATED Const: General: diaphoretic Nutritional Appearance: average body habitus HEENT: Other: NO SIGN OF TRAUMA Neck: Neck: Yes normal visual inspection Chest: Chest palpation & inspection: normal inspection of the chest Resp: Effort & Inspection: normal respiratory effort Auscultation: clear to auscultation bilaterally Cardio: Jugular venous distension: no JVD Rate: regular rate GI: Inspection: Yes normal to inspection Palpation (GI): Soft to palpation Skin: General skin exam: no rashes or lesions noted Neuro: Cranial nerves: Yes CN's II-XII intact bilaterally Extrem: General: Yes normal to inspection Course Reevaluation(s) Reevaluation #1: SIGNED OUT TO DR BROWN ( I am OFF SHIFT NOW) labs pending ,will need to be monitor closely Time: 16:13 Medications Administered Discontinued Medications Generic Name Dose Route Start Last Admin Trade Name Elanq PRN Reason Stop Dose Admin Albuterol Sulfate 2 puff 02/06/25 20:02 02/06/25 20:12 Albuterol Sulfate 90 Mcg 8 Gm Inhaler INHALE 02/06/25 20:03 2 puff ONCE ONE Administration Cefuroxime Axetil 500 mg 02/06/25 20:01 02/06/25 20:04 Cefuroxime Axetil 500 Mg Tablet PO 02/06/25 20:02 500 mg ONCE ONE Administration Albuterol Sulfate 2.5 mg/ 0 mg 02/06/25 18:54 02/06/25 19:34 Albuterol/Ipratropium 3 ml INHALE 02/06/25 18:55 1 dose ONCE ONE Administration Doxycycline Monohydrate 100 mg 02/06/25 20:01 02/06/25 20:04 Doxycycline Monohydrate 100 Mg Capsule PO 02/06/25 20:02 100 mg ONCE ONE Administration Lactated Ringer's 1,000 mls @ 999 mls/hr 02/06/25 16:00 02/06/25 17:35 Lr IV 02/06/25 17:00 Infused .Q1H1M DIAMOND Infusion Lactated Ringer's 1,000 mls @ 999 mls/hr 02/06/25 16:00 02/06/25 18:05 Lr IV 02/06/25 17:00 Infused .Q1H1M DIAMOND Infusion Sodium Chloride 1,000 mls @ 999 mls/hr 02/06/25 18:50 02/06/25 20:42 Ns IV 02/06/25 19:50 Infused .Q1H1M ONE Infusion Midazolam HCl 2 mg 02/06/25 16:11 02/06/25 16:18 Midazolam Hcl 2 Mg/2 Ml Vial IM 02/06/25 16:12 2 mg ONCE ONE Administration Olanzapine 10 mg 02/06/25 16:10 02/06/25 16:18 Olanzapine 10 Mg Vial IM 02/06/25 16:11 10 mg ONCE ONE Administration Medical Decision Making Medical Decision Making MDM Narrative: PATIENT IS HERE AFTER DRUG INTOXICATION PLAN WE WILL CHECK HIS BLOOD WORK WE WILL MONITOR CLOSELY patient's lab workup showed opiate and cocaine no PCP use. Patient has been coughing for last few days chest x-ray negative for infiltrate but does have bronchitis patient does have history of asthma will prescribe doxy and Ceftin advised to continue use inhaler patient has refused detox Differential Diagnosis Differential Diagnoses: The differential diagnosis associated with the presentation includes OVERDOSE OF PCP/OVERDOSE OF COCAINE Admission/Observation Consideration of admission/observation: Escalation of care including admission/observation considered Lab Data MDM Lab Attestation statement: I reviewed the patient's lab results. Leukocytosis 02/06/25 15:57 02/06/25 15:57 Labs: Lab Results 02/06/25 02/06/25 Range/Units 15:57 19:40 WBC 19.4 H (4.8-10.8) X10*3/uL RBC 5.12 (4.60-5.80) X10*6/uL Hgb 14.9 (14.0-18.0) g/dl Hct 42.9 (42.0-52.0) % MCV 83.8 (80.0-98.0) fL MCH 29.1 (27.0-33.0) pg MCHC 34.7 (31.0-36.0) g/dl RDW 13.6 (11.0-16.0) % Plt Count 402 H (160-400) X10*3/uL MPV 10.3 (9.4-12.4) fL Immature Gran % (Auto) 0.5 H (0.0-0.4) % Neut % (Auto) 90.3 H (45-73) % Lymph % (Auto) 2.4 L (20-40) % Pepin % (Auto) 6.6 (2-11) % Eos % (Auto) 0.0 (0-4) % Baso % (Auto) 0.2 (0-2) % Lymph # (Auto) 0.5 L (1.2-4.9) X10*3/uL Pepin # (Auto) 1.3 H (0.1-1.2) X10*3/uL Eos # (Auto) 0.0 (0.0-0.4) X10*3/uL Baso # (Auto) 0.0 (0.0-0.2) X10*3/uL Abs Immat Gran (auto) 0.10 H (0.00-0.03) X10*3/uL Absolute Neuts (auto) 17.5 H (2.0-8.3) x10*3/uL Absolute Nucleated RBC 0.000 (0.0-0.012) X10*3/uL Nucleated RBC % (auto) 0.0 (0.0-0.2) /100WBC Smear Tech's Comments VERIFIED Sodium 145 (135-145) mmol/L Potassium 4.4 (3.3-5.1) mmol/L Chloride 107 (96-108) mmol/L Carbon Dioxide 24 (22-29) mmol/L Anion Gap 18 (12-20) BUN 18 H (9-16) mg/dL Creatinine 1.17 (0.5-1.4) mg/dL Estim Creat Clear Calc 91.4 Estimated GFR > 60 Random Glucose 124 H (60-115) mg/dL Calcium 9.6 (8.4-10.2) mg/dL Total Bilirubin 0.5 (0.0-1.0) mg/dL AST 35 (5-37) U/L ALT 24 (0-40) U/L Alkaline Phosphatase 118 H (39-117) U/L Total Creatine Kinase 163 (38-174) U/L Total Protein 8.1 H (6.5-8.0) g/dL Albumin 5.0 (3.5-5.0) g/dL Urine Opiates Screen POSITIVE H (Not Detect) Ur Buprenorphine Scrn Not Detected (Not Detect) ng/mL Ur Oxycodone Screen Not Detected (Not Detect) ng/mL Urine Methadone Screen Not Detected (Not Detect) ng/mL Urine Fentanyl Screen POSITIVE H (Not Detect) Ur Barbiturates Screen Not Detected (Not Detect) Ur Phencyclidine Scrn Not Detected (Not Detect) Ur Amphetamines Screen Not Detected (Not Detect) U Benzodiazepines Scrn POSITIVE H (Not Detect) Urine Cocaine Screen Not Detected (Not Detect) U Marijuana (THC) Screen POSITIVE H (Not Detect) Ethyl Alcohol < 10 mg/dL Radiology Impression Discussion of test interpretation with radiology: I have reviewed the radiologist's reading. (Normal chest x-ray) Critical Care Time Critical Care Time Critical Care Time: Yes Total Critical Care Time: 60 Attestation: severe agitation requiring IM medication laboratory monitor because of severe tachycardia heart rate 142 Discharge Plan Discharge Clinical Impression: Polysubstance abuse, Bronchitis Patient Disposition: Home, Self-Care Instructions: Acute Bronchitis (ED), Polysubstance Use Disorder (ED) Additional Instructions: Stop using drugs Follow up with detox Take antibiotics as prescribed for bronchitis Continue to use your inhaler Prescriptions: New cefuroxime axetil 500 mg tablet 500 mg PO BID 10 Days Qty: 20 0RF albuterol sulfate 90 mcg/actuation HFA aerosol inhaler 2 puff inhalation Q6H PRN (Reason: shortness of breath or wheezing) Qty: 8.5 0RF doxycycline hyclate 100 mg tablet 100 mg PO BID Qty: 20 0RF No Action fluticasone furoate-vilanterol [Breo Ellipta] 100-25 mcg/dose Blister With Device 1 ea inhalation RDAILY Qty: 1 0RF albuterol sulfate 90 mcg/actuation HFA aerosol inhaler 2 puff inhalation Q4-6H PRN (Reason: shortness of breath or wheezing) Qty: 6.7 3RF Rx Instructions: May dispense medication equivalent accepted by patient's insurance albuterol sulfate 2.5 mg /3 mL (0.083 %) solution for nebulization 2.5 mg inhalation Q4-6H PRN (Reason: shortness of breath or wheezing) Qty: 180 2RF Rx Instructions: May dispense medication equivalent accepted by patient's insurance cyclobenzaprine 10 mg tablet 10 mg PO TID PRN (Reason: muscle spasm) Qty: 14 0RF ibuprofen 600 mg tablet 600 mg PO Q8H PRN (Reason: pain) Qty: 14 0RF lidocaine 5 % adhesive patch,medicated 1 patch topical DAILY Qty: 15 0RF Rx Instructions: leave on most painful area for up to 12 hrs prednisone 20 mg tablet 40 mg PO DAILY Qty: 10 0RF albuterol sulfate 90 mcg/actuation HFA aerosol inhaler 2 puff inhalation Q6H PRN (Reason: shortness of breath or wheezing) Qty: 8.5 0RF prednisone 20 mg tablet 40 mg PO DAILY Qty: 8 0RF albuterol sulfate 90 mcg/actuation aerosol powdr breath activated 2 inh inhalation Q4-6H PRN (Reason: shortness of breath or wheezing) Qty: 1 0RF albuterol sulfate 90 mcg/actuation HFA aerosol inhaler 1 puff inhalation QID Qty: 8.5 0RF prednisone 20 mg tablet See Rx Instructions .ROUTE .COMPLEX 12 Days Qty: 26 0RF Rx Instructions: 20 mg orally, Take 3 tablets for 5 days THEN; Take 2 tablets for 4 days THEN; Take 1 tablet for 3 days prednisone 20 mg tablet 40 mg PO DAILY 4 Days Qty: 8 0RF naproxen 500 mg tablet 500 mg PO BID PRN (Reason: pain) Qty: 20 0RF albuterol sulfate 90 mcg/actuation HFA aerosol inhaler 2 inh inhalation Q20M PRN (Reason: shortness of breath or wheezing) Qty: 8.5 0RF prednisone 20 mg tablet 40 mg PO DAILY 5 Days Qty: 10 0RF albuterol sulfate [Ventolin HFA] 90 mcg/actuation HFA aerosol inhaler 2 puff inhalation Q4-6H PRN (Reason: shortness of breath or wheezing) Qty: 8.5 1RF prednisone 50 mg tablet 50 mg PO DAILY 4 Days Qty: 4 0RF albuterol sulfate 90 mcg/actuation aerosol powdr breath activated 2 inh inhalation Q4-6H PRN (Reason: shortness of breath or wheezing) Qty: 1 0RF prednisone 20 mg tablet 40 mg PO DAILY 4 Days Qty: 8 0RF clindamycin HCl 300 mg capsule 300 mg PO TID 7 Days Qty: 21 0RF ibuprofen 600 mg tablet 600 mg PO Q6H PRN (Reason: pain) Qty: 30 0RF acetaminophen [Tylenol Extra Strength] 500 mg tablet 500 - 1,000 mg PO Q6H PRN (Reason: pain) Qty: 30 0RF albuterol sulfate 90 mcg/actuation HFA aerosol inhaler 2 puff inhalation Q4-6H PRN (Reason: shortness of breath or wheezing) Qty: 8.5 0RF prednisone 20 mg tablet 20 mg PO DAILY Qty: 12 0RF Rx Instructions: Take 3 tablets by mouth daily for 2 days then take 2 tablets by mouth daily for 3 days. sertraline 25 mg tablet 50 mg PO DAILY Qty: 30 0RF (DME) Reset-O Digital Brandy (OUD) Misc See Rx Instructions .MEDSUPPLY Qty: 1 3RF Rx Instructions: As directed (3-4 times a week) 84 days buprenorphine-naloxone [Suboxone] 12-3 mg film 1 film sublingual Q24H Qty: 7 0RF Interventions: ED Discharge Assessment Last Done: 02/06/25 20:23 Discharge Date/Time: 02/06/25 20:28 Print Language: Andorran
[2025-02-06 16:08] LABS: Basophils Percent Auto 0.2 % (0-2); Hematocrit 42.9 % (42.0-52.0); Hemoglobin 14.9 g/dl (14.0-18.0); Imm Gran Pct Auto 0.5 % (0.0-0.4); Lymphocytes Absolute Auto 0.5 X10*3/uL (1.2-4.9); Lymphocytes Percent Auto 2.4 % (20-40); MANUAL DIFF FLAG SCAN; Mean Corpuscular HGB Conc 34.7 g/dl (31.0-36.0); Mean Corpuscular Hemoglobin 29.1 pg (27.0-33.0); Mean Corpuscular Volume 83.8 fL (80.0-98.0); Mean Platelet Volume 10.3 fL (9.4-12.4); Monocytes Absolute Auto 1.3 X10*3/uL (0.1-1.2); Monocytes Percent Auto 6.6 % (2-11); Neutrophils Absolute Auto 17.5 x10*3/uL (2.0-8.3); Neutrophils Percent Auto 90.3 % (45-73); Platelet Count 402 X10*3/uL (160-400); Red Blood Count 5.12 X10*6/uL (4.60-5.80); Red Cell Distribution Width 13.6 % (11.0-16.0); SCAN SMEAR FLAG 1; White Blood Count 19.4 X10*3/uL (4.8-10.8)
[2025-02-06] MEDS: OLANZapine 10 MG VIAL IM (16:18)
[2025-02-06] MEDS: Midazolam HCl 2 MG/2 ML VIAL IM (16:18)
--- NOTE | 2025-02-06 16:20 | PC.NURSE ---
29 M presents to ED following PCP drug intoxication. Pt arrived, yelling, agitated, swearing and throwing himself up on the bed. Pt A+OX1, attempted to re-orient and calm patient. Pt was not receptive to staff trying to calm and comfort him, was not following commands. Patient kept saying he had to pee and told us to leave the room, stood up with urinal and was not able to pee. Staff stood by for safety reasons, pt was not able to urinate after trying for about 10 min. Pt asked to get in the bed for vitals signs, pt just kept saying he had to piss. Pt required restraints for safety reasons to avoid harm to self or others. Pt bladder scanned, 0ml found in bladder.
[2025-02-06 16:28] LABS: Alanine Aminotransferase 24 U/L (0-40); Alkaline Phosphatase 118 U/L (39-117); Anion Gap 18 (12-20); Aspartate Amino Transferase 35 U/L (5-37); Bilirubin Total 0.5 mg/dL (0.0-1.0); Blood Urea Nitrogen 18 mg/dL (9-16); Calcium 9.6 mg/dL (8.4-10.2); Carbon Dioxide 24 mmol/L (22-29); Chloride 107 mmol/L (96-108); Creatinine Clr Calc Pharmacy 91.4; Estimated Glomerular Filt Rate > 60; Ethanol < 10 mg/dL; Glucose Random 124 mg/dL (60-115); Potassium 4.4 mmol/L (3.3-5.1); Sodium 145 mmol/L (135-145); Total Protein 8.1 g/dL (6.5-8.0)
[2025-02-06 16:35] LABS: SLIDE REVIEW VERIFIED
[2025-02-06] MEDS: Lactated Ringers 1,000 ML 999 ML IV ×2 (16:35→17:01)
--- OUTSIDE RECORDS SUMMARY | 2025-02-06 17:02 | XMS_ITS | Encounter Summary ---
Author Organization [employer] Address [address] [place] [address] Care Team Providers Care Fish Processor Name Role Phone Unavailable Primary Care Provider Unavailabl e Reason for Visit * Reason Onset Date Comments emergency appt 08/09/2024 Encounter Details Date Type Department Care Team ([facility] st Contact Info) Description 08/09/2024 Telephone [facility] [address] [place] [address] Denise Gannon, DDS [address] [place] [address] emergency appt Social History Tobacco Use Types [...]
--- NOTE | 2025-02-06 19:18 | PC.NURSE ---
Alvarez line service technician attempted to perform VBD for lactic and BC with no success. Patient refused re attempt for VBD and IVF at this time. Dr Garibay informed. RT at bedside to administer neb treatment, patient refused neb treatment. O2 Sat 95% on 4 LPM NC, patient in stretcher bed, call abdul in patient's reach.
--- NOTE | 2025-02-06 19:22 | PC.RT ---
Pt agitated; refusing Nebulizers. RN aware
[2025-02-06] MEDS: Albuterol Sulfate 2.5 MG, Albuterol/Iprat 2.5/0.5MG 3 ML 3 ML INHALE (19:34)
[2025-02-06] MEDS: 0.9 % Sodium Chloride 1,000 ML 999 ML IV (19:41)
--- NOTE | 2025-02-06 19:45 | PC.NURSE ---
Patient requesting to urinate, urinal given to patient. Patient voided 200 mL of dark yellow, clear urine into urinal. Urne spec collected for WINTERS and sent to lab. Patient provided with snack: turkey sandwich, cheese stick, gina aole, and vanilla ice cream. Patient tolerating PO intake well, no c/o nausea/vomiting. Patient received neb treatment and IVF started. Patient continues to refuse VBD. Dr. Garibay is aware. CXR completed, results pending.
[2025-02-06 19:57] LABS: Amphetamine Screen Urine Not Detected (Not Detect); Barbiturates, Urine Not Detected (Not Detect); Benzodiazepines Screen Urine POSITIVE (Not Detect); Buprenorphine Scr Not Detected (Not Detect); Cannabinoid Screen Urine POSITIVE (Not Detect); Cocaine Screen Urine Not Detected (Not Detect); Fentanyl, urine POSITIVE (Not Detect); Methadone Screen, Urine Not Detected (Not Detect); Opiate Screen Urine POSITIVE (Not Detect); Oxycodone Screen Urine Not Detected (Not Detect); Phencyclidine Screen Urine Not Detected (Not Detect)
--- NOTE | 2025-02-06 20:00 | PC.NURSE ---
Patient requesting to stop IV fluids, attempting to pull IV line. Patient continues to refuse VBD for lactic and BC x2. Dr. Garibay is aware. Per , OK not to administer IV fluids. VBD for lactic and BC is not needed at this time.
[2025-02-06] MEDS: Doxycycline Monohydrate 100 MG CAPSULE PO (20:04)
[2025-02-06] MEDS: cefuroxime axetiL 500 MG TABLET PO (20:04)
[2025-02-06] MEDS: Albuterol Sulfate 90 MCG 8 GM INHALER 2 PUFF INHALE (20:12)
--- NOTE | 2025-02-06 20:25 | PC.NURSE ---
Patient alert and oriented x3. Patient ambulated to restroom and back to his room with a steady gait. O2 Sat 94-96% RA. Patient denies any pain discomfort. Patient medicated with PO abt for Bronchitis. Patient refusing detox at this time.
== END 2025-02-06 20:28 | disposition home or self-care (01) ==
PROVIDERS: Emergency Medicine; Emergency Provider Internal Medicine; PCP Nurse Practitioner Family
DX: J40 Bronchitis, not specified as acute or chronic (principal); T50.991A Poisoning by other drugs, medicaments and biological substances, accidental (unintentional), initial encounter; T50.901A Poisoning by unspecified drugs, medicaments and biological substances, accidental (unintentional), initial encounter; R06.02 Shortness of breath; R11.0 Nausea; Y92.9 Unspecified place or not applicable; R41.82 Altered mental status, unspecified; F17.210 Nicotine dependence, cigarettes, uncomplicated; Z79.899 Other long term (current) drug therapy; Z51.81 Encounter for therapeutic drug level monitoring
CPT/HCPCS: 36415; 71045; 80053; 80307; 82550; 85025; 94640; 96360; 96361; 96372; 99285; J2250; J2359; J7120

== ENCOUNTER → 2025-02-06 18:50 | Outpatient (BNV) | payer OTHER, SELFPAY | PROVIDERS: Emergency Provider Internal Medicine; PCP Nurse Practitioner Family; Visit Provider Specialist | DX: R06.02 Shortness of breath (principal) | CPT/HCPCS: 71045 ==

== ENCOUNTER 2025-03-04 23:27 | Emergency (ER) | payer OTHER, SELFPAY ==
[2025-03-04 23:30] VITALS: BP 92/50; PULSE 63; RESP 17; TEMP 37.1; O2SAT 100; BMI 24.9
[2025-03-04 23:45] LABS: Hematocrit 41.8 % (42.0-52.0); Hemoglobin 14.8 g/dl (14.0-18.0); Imm Gran Abs Auto 0.01 X10*3/uL (0.00-0.03); Imm Gran Pct Auto 0.1 % (0.0-0.4); Lymphocytes Absolute Auto 2.1 X10*3/uL (1.2-4.9); MANUAL DIFF FLAG NO; Mean Corpuscular HGB Conc 35.4 g/dl (31.0-36.0); Mean Corpuscular Hemoglobin 28.6 pg (27.0-33.0); Mean Corpuscular Volume 80.9 fL (80.0-98.0); NRBC Abs Auto 0.000 X10*3/uL (0.0-0.012); NRBC Pct Auto 0.0 /100WBC (0.0-0.2); Platelet Count 313 X10*3/uL (160-400); Red Blood Count 5.17 X10*6/uL (4.60-5.80); White Blood Count 7.2 X10*3/uL (4.8-10.8)
[2025-03-05 00:02] LABS: Alanine Aminotransferase 15 U/L (0-40); Albumin Level 4.4 g/dL (3.5-5.0); Alkaline Phosphatase 109 U/L (39-117); Anion Gap 11 (12-20); Aspartate Amino Transferase 18 U/L (5-37); Blood Urea Nitrogen 12 mg/dL (9-16); Calcium 8.7 mg/dL (8.4-10.2); Carbon Dioxide 24 mmol/L (22-29); Chloride 108 mmol/L (96-108); Creatinine Clr Calc Pharmacy 112.6; Estimated Glomerular Filt Rate > 60; Lipase 20 U/L (8-78); Potassium 3.9 mmol/L (3.3-5.1); Sodium 139 mmol/L (135-145); Total Protein 7.2 g/dL (6.5-8.0)
[2025-03-05 03:10] LABS: Appearance Urine Clear; Glucose Urine UA Negative (Negative); PH 5.5 (5.0-9.0); Specific Gravity - Urine >= 1.030 (1.005-1.025)
[2025-03-05 03:16] VITALS: BP 109/47; PULSE 55; RESP 18; TEMP 36.4; O2SAT 99
--- NOTE | 2025-03-05 04:43 | ED_ITS ---
HPI - Abdominal Pain General Chief Complaint: Abdominal Pain Stated Complaint: gallbladder pain Time Seen by Provider: 03/05/25 02:00 Source: patient Mode of arrival: ambulatory Limitations: no limitations History of Present Illness ED Provider: Dr. Hui Christianson HPI narrative: 29 year old male with history of substance use, currently under house arrest and not using substances presenting with RUQ abd pain ongoing for the last several days. Pain is described as a sharp pain, constant, nonradiating and not associated with food intake or movement. Admits he has been having constipation. No BM in 3 days. Denies associated vomiting or fever. Able to tolerate food in this time frame. Feels hungry now. No history of gall stones. No abd surgical hx. No urinary complaints or hematochezia. Related Data Previous Rx's ?Medication ?Instructions ?Recorded fluticasone furoate 100 1 ea inhalation RDAILY #1 ea 07/09/22 mcg-vilanterol 25 mcg/dose inhalation powder (Breo Ellipta) sertraline 25 mg tablet 50 mg (2 x 25 mg) PO DAILY # 30 tabs 09/23/22 digital therapeutics, OUD (Reset-O #1 ea 09/30/22 Digital Brandy (OUD)) buprenorphine 12 mg-naloxone 3 mg 1 film sublingual Q2 4H #7 ea 10/07/22 sublingual film (Suboxone) albuterol sulfate 2.5 mg/3 mL 2.5 mg (3 mL) inhalation Q4-6H PRN 10/23/22 (0.083 %) solution for nebulization shortness of breat h or wheezing #180 mL albuterol sulfate 90 mcg/actuation 2 puff inhalation Q 4-6H PRN 10/23/22 aerosol inhaler shortness of breath or wheez ing #6.7 grams cyclobenzaprine 10 mg tablet 10 mg PO TID PRN muscle s pasm #14 04/01/23 tabs ibuprofen 600 mg tablet 600 mg PO Q8H PRN pain #14 t abs 04/01/23 lidocaine 5 % topical patch 1 patch topical DAILY #15 ea 04/01/23 naproxen 500 mg tablet 500 mg PO BID PRN pain #20 t abs 04/29/23 albuterol sulfate 90 mcg/actuation 2 inh inhalation Q2 0M PRN 12/04/23 aerosol inhaler shortness of breath or wheez ing #8.5 grams prednisone 20 mg tablet 40 mg (2 x 20 mg) PO DAILY 5 days 12/04/23 #10 tabs albuterol sulfate 90 mcg/actuation 2 puff inhalation Q 4-6H PRN 12/16/23 aerosol inhaler (Ventolin HFA) shortness of breath or wheezing #8.5 grams prednisone 50 mg tablet 50 mg PO DAILY 4 days #4 tab s 12/16/23 albuterol sulfate 90 mcg/actuation 2 inh inhalation Q4 -6H PRN 01/18/24 breath activated powder inhaler shortness of breath or wheezing #1 ea prednisone 20 mg tablet 40 mg (2 x 20 mg) PO DAILY 4 days 01/18/24 #8 tabs albuterol sulfate 90 mcg/actuation 2 puff inhalation Q 6H PRN 06/12/24 aerosol inhaler shortness of breath or wheez ing #8.5 grams prednisone 20 mg tablet 40 mg (2 x 20 mg) PO DAILY # 10 tabs 06/12/24 albuterol sulfate 90 mcg/actuation 2 inh inhalation Q4 -6H PRN 06/28/24 breath activated powder inhaler shortness of breath or wheezing #1 ea prednisone 20 mg tablet 40 mg (2 x 20 mg) PO DAILY # 8 tabs 06/28/24 acetaminophen 500 mg tablet 500 - 1,000 mg (1 - 2 x 50 0 mg) PO 08/05/24 (Tylenol Extra Strength) Q6H PRN pain #30 tabs clindamycin HCl 300 mg capsule 300 mg PO TID 7 days #2 1 caps 08/05/24 ibuprofen 600 mg tablet 600 mg PO Q6H PRN pain #30 t abs 08/05/24 albuterol sulfate 90 mcg/actuation 1 puff inhalation Q ID #8.5 grams 11/03/24 aerosol inhaler prednisone 20 mg tablet See Rx Instructions .Route 0 11/03/24 .COMPLEX 12 days #26 tabs albuterol sulfate 90 mcg/actuation 2 puff inhalation Q 4-6H PRN 01/26/25 aerosol inhaler shortness of breath or wheez ing #8.5 grams prednisone 20 mg tablet 20 mg PO DAILY #12 tabs 04/14 prednisone 20 mg tablet 40 mg (2 x 20 mg) PO DAILY 4 days 02/04/25 #8 tabs albuterol sulfate 90 mcg/actuation 2 puff inhalation Q 6H PRN 02/06/25 aerosol inhaler shortness of breath or wheez ing #8.5 grams cefuroxime axetil 500 mg tablet 500 mg PO BID 10 days #20 tabs 02/06/25 doxycycline hyclate 100 mg tablet 100 mg PO BID #20 ta bs 02/06/25 dicyclomine 20 mg tablet 20 mg PO TID #10 tabs Allergies Allergy/AdvReac Type Severity Reaction Status Date / Time seafood Allergy Severe Anaphylaxis Verified 03/04/25 23:32 Penicillins (PENICILLINS) Allergy Intermediate RASH Verified 03/04/25 23:32 Review of Systems Review of Systems as per HPI, full review of systems performed and negative but for the above mentioned pertinent positives and negatives. [facility] Past Medical History Attestation statement: The following information was validated with the patient. Medical History Substance abuse Alcohol abuse Depression Opioid use disorder Asthma Social History Social History Household Members: Family Household Members Other:: Mom Housing: House Do you presently have visiting nurse or other home services: No Unable to assess alcohol history related to: Unable to respond Alcohol intake: former Patient Tobacco Use Status: Current everyday Tobacco user Tobacco use type: Cigarette Cigarette Packs Per Day: 1 Cigarettes Per Day: 20.0 e-Cigarette/Vaping Use: Currently Using Substance Use Type: Marijuana and Other Advance Directives: No Do you have a plan to hurt others: No Plan service: No Current occupational status: employed Current occupation: right hand dominant Physical Exam ED Vital Signs: Vital Signs - 24 hr 03/04/25 23:30 03/05/25 03:16 Temperature 98.7 F 97.5 F Pulse Rate 63 55 Respiratory Rate 17 18 Blood Pressure 92/50 L 109/47 L Pulse Oximetry 100 99 Oxygen Delivery Method Room Air Room Air BMI result Body Mass Index 24.9 GENERAL: nontoxic-Appearing, appears uncomfortable. SKIN: Normal skin color for ethnicity, warm, dry, no rashes noted. HEENT:? Normocephalic, atraumatic, no stridor, dry mucous membranes, dentition intact, EOMI. NECK: Soft, supple, full ROM, midline structures nontender, no step-offs, no deformities, no lymphadenopathy. CHEST: Heart regular tachycardia, no murmurs, symmetric chest rise and fall. PULMONARY: Clear to auscultation bilaterally, diminished at the bases, no labored breathing, no wheezes/rhales/rhonchi. ABDOMINAL: Soft, nondistended, RUQ tenderness to palpation without rebound or guarding, positive bowel sounds in all quadrants. : Deferred. MUSCULOSKELETAL: Normal tone, full range of motion, no deformities, no peripheral edema. NEURO: Alert and oriented x3, CN II through XII intact, equal strength and sensation bilateral upper and lower extremities, no focal neurologic deficits.? PSYCHIATRIC: Flat affect, fluid speech, good eye contact and appropriate demeanor. Medical Decision Making Medical Decision Making [facility] Narrative: This patient presents today with a chief complaint of abdominal pain. Differential diagnosis for this patient is broad.? It includes appendicitis, cholecystitis, bowel obstruction, diverticulitis, peptic ulcer disease, pyelonephritis, vascular pathology, among many others.? A broad-based workup based on history and physical examination was obtained. ? Patient was given bentyl for pain control. ? Abdomen is nonsurgical. Bedside POCUS does not show evidence of cholelithiasis/free fluid. Right kidney is normal in appearance. No hydro. Able to tolerate the US without issue. No King's sign. Blood work does not show obstructive pattern on LFTs/no infectious process suspected. Suspect constipation/gas pains. Discussed with him at length. Using shared decision making, plan for discharge home to follow-up with primary care and/or specialist.? Patient understands and agrees with plan for discharge.? Discharged home in stable condition. Differential Diagnosis Differential Diagnoses: The differential diagnosis associated with the presentation includes (as above) Admission/Observation Consideration of admission/observation: Escalation of care including admission/observation considered Lab Data [facility] Lab Attestation statement: I reviewed the patient's lab results. 03/04/25 23:40 03/04/25 23:40 Labs: Lab Results 03/04/25 03/05/25 Range/Units 23:40 03:00 WBC 7.2 (4.8-10.8) X10*3/uL RBC 5.17 (4.60-5.80) X10*6/uL Hgb 14.8 (14.0-18.0) g/dl Hct 41.8 L (42.0-52.0) % MCV 80.9 (80.0-98.0) fL MCH 28.6 (27.0-33.0) pg MCHC 35.4 (31.0-36.0) g/dl RDW 13.1 (11.0-16.0) % Plt Count 313 (160-400) X10*3/uL MPV 10.0 (9.4-12.4) fL Immature Gran % (Auto) 0.1 (0.0-0.4) % Neut % (Auto) 55.2 (45-73) % Lymph % (Auto) 29.4 (20-40) % Jasper % (Auto) 10.9 (2-11) % Eos % (Auto) 3.8 (0-4) % Baso % (Auto) 0.6 (0-2) % Lymph # (Auto) 2.1 (1.2-4.9) X10*3/uL Jasper # (Auto) 0.8 (0.1-1.2) X10*3/uL Eos # (Auto) 0.3 (0.0-0.4) X10*3/uL Baso # (Auto) 0.0 (0.0-0.2) X10*3/uL Abs Immat Gran (auto) 0.01 (0.00-0.03) X10*3/uL Absolute Neuts (auto) 4.0 (2.0-8.3) x10*3/uL Absolute Nucleated RBC 0.000 (0.0-0.012) X10*3/uL Nucleated RBC % (auto) 0.0 (0.0-0.2) /100WBC Sodium 139 (135-145) mmol/L Potassium 3.9 (3.3-5.1) mmol/L Chloride 108 (96-108) mmol/L Carbon Dioxide 24 (22-29) mmol/L Anion Gap 11 L (12-20) BUN 12 (9-16) mg/dL Creatinine 0.95 (0.5-1.4) mg/dL Estim Creat Clear Calc 112.6 Estimated GFR > 60 Random Glucose 95 (60-115) mg/dL Calcium 8.7 D (8.4-10.2) mg/dL Total Bilirubin 0.9 (0.0-1.0) mg/dL AST 18 (5-37) U/L ALT 15 (0-40) U/L Alkaline Phosphatase 109 (39-117) U/L Total Protein 7.2 (6.5-8.0) g/dL Albumin 4.4 (3.5-5.0) g/dL Lipase 20 (8-78) U/L Urine Color Dark Yellow Urine Appearance Clear Urine pH 5.5 (5.0-9.0) Ur Specific Lena >= 1.030 H (1.005-1.025) Urine Protein Negative (Neg-Trace) mg/dL Urine Glucose (UA) Negative (Negative) mg/dL Urine Ketones Negative (Negative) mg/dL Urine Blood Negative (Negative) Urine Nitrite Negative (Negative) Ur Leukocyte Esterase Negative (Negative) Prescription Management I considered prescription management with: Pain Medication (bentyl) Chronic Conditions Patient?s care impacted by: Other (substance use disorder) Social Determinants Patient?s care significantly limited by Social Determinants of Health including: Alcoholism and drug addiction in family, Problems related to primary support group and Other Social Determinant of Health Medications Administered Discontinued Medications Generic Name Dose Route Start Last Admin Trade Name Freq PRN Reason Stop Dose Admin Dicyclomine HCl 20 mg 03/05/25 03:19 03/05/25 03:55 Dicyclomine Hcl 10 Mg Capsule PO 03/05/25 03:20 20 mg ONCE ONE Administration Discharge Plan Discharge Clinical Impression: Abdominal pain, acute, right upper quadrant Patient Disposition: Home, Self-Care Instructions: Abdominal Pain (ED) Additional Instructions: You were seen in the Emergency Department for your abdominal pain. We performed an ultrasound which did not reveal any acute abnormalities that would explain your symptoms. FURTHER CARE: We have not found any emergent physical exam or lab abnormalities that would require admission to the hospital today. Many people who come to the ER with abdominal pain do not leave with a specific diagnosis at the end of their visit. In the Emergency Department we try to make sure that there is no emergent problem that needs surgery or antibiotics right now. This does not mean that your evaluation is complete--please be sure to follow up with your regular doctor as additional testing as an outpatient may be indicated. Please be certain to drink plenty of fluids over the next several. You should advance your diet as tolerated. You may wish to start with the BRAT diet (bananas, rice, applesauce, toast). WHEN YOU SHOULD BE SEEN NEXT: Please follow-up with your primary care provider within the next 2-3 days for reevaluation of your symptoms. WHEN TO RETURN TO THE ED: Monitor your symptoms closely and return to the emergency department immediately for any new/worsening symptoms, worsening abdominal pain, pain which changes location (particularly if it moved to the right lower quadrant), nausea, vomiting, blood in your stool, black/tarry stools, chest pain, shortness of breath, fevers, chills, night sweats, you are unable to arrange follow-up care, or any other concerning symptoms. Prescriptions: New dicyclomine 20 mg tablet 20 mg PO TID Qty: 10 0RF No Action fluticasone furoate-vilanterol [Breo Ellipta] 100-25 mcg/dose Blister With Device 1 ea inhalation RDAILY Qty: 1 0RF albuterol sulfate 90 mcg/actuation HFA aerosol inhaler 2 puff inhalation Q4-6H PRN (Reason: shortness of breath or wheezing) Qty: 6.7 3RF Rx Instructions: May dispense medication equivalent accepted by patient's insurance albuterol sulfate 2.5 mg /3 mL (0.083 %) solution for nebulization 2.5 mg inhalation Q4-6H PRN (Reason: shortness of breath or wheezing) Qty: 180 2RF Rx Instructions: May dispense medication equivalent accepted by patient's insurance cyclobenzaprine 10 mg tablet 10 mg PO TID PRN (Reason: muscle spasm) Qty: 14 0RF ibuprofen 600 mg tablet 600 mg PO Q8H PRN (Reason: pain) Qty: 14 0RF lidocaine 5 % adhesive patch,medicated 1 patch topical DAILY Qty: 15 0RF Rx Instructions: leave on most painful area for up to 12 hrs prednisone 20 mg tablet 40 mg PO DAILY Qty: 10 0RF albuterol sulfate 90 mcg/actuation HFA aerosol inhaler 2 puff inhalation Q6H PRN (Reason: shortness of breath or wheezing) Qty: 8.5 0RF prednisone 20 mg tablet 40 mg PO DAILY Qty: 8 0RF albuterol sulfate 90 mcg/actuation aerosol powdr breath activated 2 inh inhalation Q4-6H PRN (Reason: shortness of breath or wheezing) Qty: 1 0RF albuterol sulfate 90 mcg/actuation HFA aerosol inhaler 1 puff inhalation QID Qty: 8.5 0RF prednisone 20 mg tablet See Rx Instructions .ROUTE .COMPLEX 12 Days Qty: 26 0RF Rx Instructions: 20 mg orally, Take 3 tablets for 5 days THEN; Take 2 tablets for 4 days THEN; Take 1 tablet for 3 days prednisone 20 mg tablet 40 mg PO DAILY 4 Days Qty: 8 0RF naproxen 500 mg tablet 500 mg PO BID PRN (Reason: pain) Qty: 20 0RF albuterol sulfate 90 mcg/actuation HFA aerosol inhaler 2 inh inhalation Q20M PRN (Reason: shortness of breath or wheezing) Qty: 8.5 0RF prednisone 20 mg tablet 40 mg PO DAILY 5 Days Qty: 10 0RF albuterol sulfate [Ventolin HFA] 90 mcg/actuation HFA aerosol inhaler 2 puff inhalation Q4-6H PRN (Reason: shortness of breath or wheezing) Qty: 8.5 1RF prednisone 50 mg tablet 50 mg PO DAILY 4 Days Qty: 4 0RF albuterol sulfate 90 mcg/actuation aerosol powdr breath activated 2 inh inhalation Q4-6H PRN (Reason: shortness of breath or wheezing) Qty: 1 0RF prednisone 20 mg tablet 40 mg PO DAILY 4 Days Qty: 8 0RF clindamycin HCl 300 mg capsule 300 mg PO TID 7 Days Qty: 21 0RF ibuprofen 600 mg tablet 600 mg PO Q6H PRN (Reason: pain) Qty: 30 0RF acetaminophen [Tylenol Extra Strength] 500 mg tablet 500 - 1,000 mg PO Q6H PRN (Reason: pain) Qty: 30 0RF albuterol sulfate 90 mcg/actuation HFA aerosol inhaler 2 puff inhalation Q4-6H PRN (Reason: shortness of breath or wheezing) Qty: 8.5 0RF prednisone 20 mg tablet 20 mg PO DAILY Qty: 12 0RF Rx Instructions: Take 3 tablets by mouth daily for 2 days then take 2 tablets by mouth daily for 3 days. cefuroxime axetil 500 mg tablet 500 mg PO BID 10 Days Qty: 20 0RF albuterol sulfate 90 mcg/actuation HFA aerosol inhaler 2 puff inhalation Q6H PRN (Reason: shortness of breath or wheezing) Qty: 8.5 0RF doxycycline hyclate 100 mg tablet 100 mg PO BID Qty: 20 0RF sertraline 25 mg tablet 50 mg PO DAILY Qty: 30 0RF (DME) Reset-O Digital Brandy (OUD) Misc See Rx Instructions .MEDSUPPLY Qty: 1 3RF Rx Instructions: As directed (3-4 times a week) 84 days buprenorphine-naloxone [Suboxone] 12-3 mg film 1 film sublingual Q24H Qty: 7 0RF Interventions: ED Discharge Assessment Last Done: 03/05/25 04:59 Discharge Date/Time: 03/05/25 05:00 Print Language: Burkinan
[2025-03-05 04:59] VITALS: BP 109/47; PULSE 55; RESP 18; TEMP 36.4; O2SAT 99
== END 2025-03-05 05:00 | disposition home or self-care (01) ==
PROVIDERS: Emergency Provider Emergency Medicine
DX: R10.11 Right upper quadrant pain (principal); K59.00 Constipation, unspecified; F17.210 Nicotine dependence, cigarettes, uncomplicated; Z79.899 Other long term (current) drug therapy
CPT/HCPCS: 36415; 80053; 81003; 83690; 85025; 99283

== ENCOUNTER 2025-03-17 21:01 | Emergency (ER) | payer OTHER, SELFPAY ==
--- NOTE | ~2025-03-17 | XR_ITS ---
CLINICAL HISTORY: sob 2 view chest x-ray Comparison: CR - XR CHEST 1V - 02/06/25 19:30 EDT CR - XR CHEST 2V - 01/26/25 15:40 EDT Findings: No consolidation or effusion. Heart size is normal. No acute fracture. IMPRESSION: 1. No acute findings. This document has been electronically signed by: Ángel Roldan MD on 03/17/2025 22:08:33
[2025-03-17 21:05] VITALS: BP 114/58; PULSE 73; RESP 18; TEMP 36.8; O2SAT 96; BMI 24.3
--- NOTE | 2025-03-17 21:23 | ECG_ITS ---
Test Reason : SOB Blood Pressure : */* mmHG Vent. Rate : 69 BPM Atrial Rate : 69 BPM P-R Int : 152 ms QRS Dur : 92 ms QT Int : 376 ms P-R-T Axes : 66 85 22 degrees QTcB Int : 402 ms Normal sinus rhythm Normal ECG When compared with ECG of 31-Jan-2025 22:39, No significant change was found Referred By: Generic ED Physician Electronically Signed By: CHARO AWAN MD
[2025-03-17 21:43] LABS: Hematocrit 42.0 % (42.0-52.0); Hemoglobin 15.0 g/dl (14.0-18.0); Imm Gran Abs Auto 0.02 X10*3/uL (0.00-0.03); Imm Gran Pct Auto 0.2 % (0.0-0.4); Lymphocytes Absolute Auto 1.9 X10*3/uL (1.2-4.9); MANUAL DIFF FLAG NO; Mean Corpuscular HGB Conc 35.7 g/dl (31.0-36.0); Mean Corpuscular Hemoglobin 29.2 pg (27.0-33.0); Mean Corpuscular Volume 81.9 fL (80.0-98.0); NRBC Abs Auto 0.000 X10*3/uL (0.0-0.012); NRBC Pct Auto 0.0 /100WBC (0.0-0.2); Platelet Count 266 X10*3/uL (160-400); Red Blood Count 5.13 X10*6/uL (4.60-5.80); White Blood Count 8.2 X10*3/uL (4.8-10.8)
[2025-03-17 21:56] LABS: Alanine Aminotransferase 24 U/L (0-40); Albumin Level 4.6 g/dL (3.5-5.0); Alkaline Phosphatase 117 U/L (39-117); Anion Gap 13 (12-20); Aspartate Amino Transferase 24 U/L (5-37); Blood Urea Nitrogen 15 mg/dL (9-16); Calcium 8.8 mg/dL (8.4-10.2); Carbon Dioxide 25 mmol/L (22-29); Chloride 108 mmol/L (96-108); Creatinine Clr Calc Pharmacy 146.6; Estimated Glomerular Filt Rate > 60; Potassium 4.1 mmol/L (3.3-5.1); Sodium 142 mmol/L (135-145); Total Protein 7.2 g/dL (6.5-8.0)
[2025-03-17 23:17] LABS: Resp Syncy Virus RNA Qual PCR NEGATIVE (Negative); SARS COV2 PCR INHOUSE NEGATIVE (Negative)
--- OUTSIDE RECORDS SUMMARY | 2025-03-18 02:19 | XMS_ITS | Clinical Summary ---
Author Organization 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
[2025-03-18 06:00] VITALS: BP 115/51; PULSE 68; RESP 16; TEMP 36.6; O2SAT 97
[2025-03-18] MEDS: Albuterol Sulfate 2.5 MG, Albuterol/Iprat 2.5/0.5MG 3 ML 3 ML INHALE (06:20)
[2025-03-18 06:21] VITALS: PULSE 71; RESP 18; O2SAT 96
--- NOTE | 2025-03-18 07:37 | ED.SOB ---
HPI - SOB/Dyspnea General Chief Complaint: Dyspnea Stated Complaint: asthma,cough,sob Time Seen by Provider: 03/18/25 06:05 Source: patient Mode of arrival: EMS Limitations: no limitations History of Present Illness ED Provider: Dr. Hui Christianson HPI Narrative: 29-year-old male with a history of anxiety, asthma, opioid use disorder presenting with wheezing that has been ongoing for the last 3 days or so. Patient reports he ran out of his albuterol inhaler and has been struggling to breathe, worsening tonight. No reported fever though he does admit to feeling cold. Occasionally has green colored sputum. Last asthma exacerbation was about a month ago where he required steroids. Denies nausea, vomiting, bowel changes, urinary complaints, known sick contacts or travel. Related Data Previous Rx's ?Medication ?Instructions ?Recorded fluticasone furoate 100 1 ea inhalation RDAILY #1 ea 07/09/22 mcg-vilanterol 25 mcg/dose inhalation powder (Breo Ellipta) sertraline 25 mg tablet 50 mg (2 x 25 mg) PO DAILY #30 tabs 09/23/22 digital therapeutics, OUD (Reset-O #1 ea 09/30/22 Digital Brandy (OUD)) buprenorphine 12 mg-naloxone 3 mg 1 film sublingual Q24H #7 ea 10/07/22 sublingual film (Suboxone) albuterol sulfate 2.5 mg/3 mL 2.5 mg (3 mL) inhalation Q4-6H PRN 10/23/22 (0.083 %) solution for nebulization shortness of breath or wheezing #180 mL albuterol sulfate 90 mcg/actuation 2 puff inhalation Q4-6H PRN 10/23/22 aerosol inhaler shortness of breath or wheezing #6.7 grams cyclobenzaprine 10 mg tablet 10 mg PO TID PRN muscle spasm #14 04/01/23 tabs ibuprofen 600 mg tablet 600 mg PO Q8H PRN pain #14 tabs 04/01/23 lidocaine 5 % topical patch 1 patch topical DAILY #15 ea 04/01/23 naproxen 500 mg tablet 500 mg PO BID PRN pain #20 tabs 04/29/23 albuterol sulfate 90 mcg/actuation 2 inh inhalation Q20M PRN 12/04/23 aerosol inhaler shortness of breath or wheezing #8.5 grams prednisone 20 mg tablet 40 mg (2 x 20 mg) PO DAILY 5 days 12/04/23 #10 tabs albuterol sulfate 90 mcg/actuation 2 puff inhalation Q4-6H PRN 12/16/23 aerosol inhaler (Ventolin HFA) shortness of breath or wheezing #8.5 grams prednisone 50 mg tablet 50 mg PO DAILY 4 days #4 tabs 12/16/23 albuterol sulfate 90 mcg/actuation 2 inh inhalation Q4-6H PRN 01/18/24 breath activated powder inhaler shortness of breath or wheezing #1 ea prednisone 20 mg tablet 40 mg (2 x 20 mg) PO DAILY 4 days 01/18/24 #8 tabs albuterol sulfate 90 mcg/actuation 2 puff inhalation Q6H PRN 06/12/24 aerosol inhaler shortness of breath or wheezing #8.5 grams prednisone 20 mg tablet 40 mg (2 x 20 mg) PO DAILY #10 tabs 06/12/24 albuterol sulfate 90 mcg/actuation 2 inh inhalation Q4-6H PRN 06/28/24 breath activated powder inhaler shortness of breath or wheezing #1 ea prednisone 20 mg tablet 40 mg (2 x 20 mg) PO DAILY #8 tabs 06/28/24 acetaminophen 500 mg tablet 500 - 1,000 mg (1 - 2 x 500 mg) PO 08/05/24 (Tylenol Extra Strength) Q6H PRN pain #30 tabs clindamycin HCl 300 mg capsule 300 mg PO TID 7 days #21 caps 08/05/24 ibuprofen 600 mg tablet 600 mg PO Q6H PRN pain #30 tabs 08/05/24 albuterol sulfate 90 mcg/actuation 1 puff inhalation QID #8.5 grams 11/03/24 aerosol inhaler prednisone 20 mg tablet See Rx Instructions .Route 11/03/24 .COMPLEX 12 days #26 tabs albuterol sulfate 90 mcg/actuation 2 puff inhalation Q4-6H PRN 01/26/25 aerosol inhaler shortness of breath or wheezing #8.5 grams prednisone 20 mg tablet 20 mg PO DAILY #12 tabs 01/26/25 prednisone 20 mg tablet 40 mg (2 x 20 mg) PO DAILY 4 days 02/04/25 #8 tabs albuterol sulfate 90 mcg/actuation 2 puff inhalation Q6H PRN 02/06/25 aerosol inhaler shortness of breath or wheezing #8.5 grams cefuroxime axetil 500 mg tablet 500 mg PO BID 10 days #20 tabs 02/06/25 doxycycline hyclate 100 mg tablet 100 mg PO BID #20 tabs 02/06/25 dicyclomine 20 mg tablet 20 mg PO TID #10 tabs 03/05/25 budesonide-formoterol HFA 160 2 puff inhalation BID #10.2 grams 03/18/25 mcg-4.5 mcg/actuation aerosol inhaler prednisone 50 mg tablet 50 mg PO DAILY 5 days #5 tabs 03/18/25 Allergies Allergy/AdvReac Type Severity Reaction Status Date / Time seafood Allergy Severe Anaphylaxis Verified 03/17/25 21:22 Penicillins (PENICILLINS) Allergy Intermediate RASH Verified 03/17/25 21:22 Review of Systems Review of Systems: as per HPI, full review of systems performed and negative but for the above mentioned pertinent positives and negatives. [facility] Past Medical History Attestation statement: The following information was validated with the patient. [facility] Narrative: asthma Source: unable to obtain and old records reviewed Medical History Substance abuse Alcohol abuse Depression Opioid use disorder Asthma Social History Social History Household Members: Family Household Members Other:: Mom Housing: House Do you presently have visiting nurse or other home services: No Unable to assess alcohol history related to: Unable to respond Alcohol intake: former Patient Tobacco Use Status: Current everyday Tobacco user Tobacco use type: Cigarette Cigarette Packs Per Day: 1 Cigarettes Per Day: 20.0 e-Cigarette/Vaping Use: Currently Using Substance Use Type: Marijuana and Other Advance Directives: No Advance Directives Information Provided: Yes service: No Current occupational status: employed Current occupation: right hand dominant Physical Exam Exam: Exam: GENERAL: Ill-appearing, moderate respiratory distress. SKIN: Normal skin color for ethnicity, warm, dry, no rashes noted. HEENT: Normocephalic, atraumatic, no stridor, EOMI. NECK: Soft, supple, full ROM, midline structures nontender, no step-offs, no deformities, no lymphadenopathy. CHEST: Heart regular tachycardia, symmetric chest rise and fall. PULMONARY: Diffuse wheezes throughout, tachypnea, poor air movement bilaterally, moderate respiratory distress. ABDOMINAL: Soft, nontender, quiet bowel sounds in all quadrants. : Deferred. MUSCULOSKELETAL: Normal tone, full range of motion, no deformities, no peripheral edema. NEURO: Alert and oriented to person, CN II through XII intact, no focal neurologic deficits. PSYCHIATRIC: Anxious affect, appropriate demeanor. Vital Signs: Vital Signs: Last Vital Signs Temp 97.9 F 03/18/25 06:00 Pulse 71 03/18/25 06:21 Resp 18 03/18/25 06:21 BP 115/51 L 03/18/25 06:00 Pulse Ox 97 03/18/25 06:00 O2 Del Method Room Air 03/18/25 06:00 BMI result Body Mass Index 24.3 Course Course Course Narrative: This patient was signed out to me at change of shift pending additional treatment for asthma. I evaluated the patient this morning. The patient is feeling considerably better. The patient will be discharged with a prescription for budesonide/formoterol as an inhaler and also 5 days of prednisone. Medications Administered Discontinued Medications Generic Name Dose Route Start Last Admin Trade Name Freq PRN Reason Stop Dose Admin Albuterol Sulfate 2.5 mg/ 0 mg 03/18/25 06:17 03/18/25 06:20 Albuterol/Ipratropium 3 ml INHALE 03/18/25 06:18 1 dose ONCE ONE Administration Prednisone 50 mg 03/18/25 06:43 03/18/25 07:15 Prednisone 10 Mg Tablet PO 03/18/25 06:44 50 mg ONCE ONE Administration Medical Decision Making Medical Decision Making [facility] Narrative: Patient presents today with chief complaint of shortness of breath. Differential diagnosis includes, but is not limited to, upper respiratory infection, pneumonia, COPD exacerbation, asthma exacerbation, CHF, pneumothorax, pleural effusion, pulmonary embolism, ACS. Broad-based work-up will be initiated to evaluate for etiology of patient's symptoms. 7:39 AM 03/18/2025 (Dr. Hui Christianson, D.Armand.) patient received 2 nebulizer treatments. Continues to rest comfortably. He is not in significant distress however, he is reporting continued shortness of breath. Oxygen levels are normal on room air when off of the nebulizer treatment. Plan for an additional treatment, re-evaluation. Sign out to oncoming provider pending re-evaluation and final disposition. Differential Diagnosis Differential Diagnoses: The differential diagnosis associated with the presentation includes (As above) Admission/Observation Consideration of admission/observation: Escalation of care including admission/observation considered Lab Data MDM Lab Attestation statement: I reviewed the patient's lab results. 03/17/25 21:34 03/17/25 21:34 Labs: Lab Results 03/17/25 Range/Units 21:34 WBC 8.2 (4.8-10.8) X10*3/uL RBC 5.13 (4.60-5.80) X10*6/uL Hgb 15.0 (14.0-18.0) g/dl Hct 42.0 (42.0-52.0) % MCV 81.9 (80.0-98.0) fL MCH 29.2 (27.0-33.0) pg MCHC 35.7 (31.0-36.0) g/dl RDW 12.9 (11.0-16.0) % Plt Count 266 (160-400) X10*3/uL MPV 10.5 (9.4-12.4) fL Immature Gran % (Auto) 0.2 (0.0-0.4) % Neut % (Auto) 61.7 (45-73) % Lymph % (Auto) 23.0 (20-40) % [place] % (Auto) 9.3 (2-11) % Eos % (Auto) 5.4 H (0-4) % Baso % (Auto) 0.4 (0-2) % Lymph # (Auto) 1.9 (1.2-4.9) X10*3/uL [place] # (Auto) 0.8 (0.1-1.2) X10*3/uL Eos # (Auto) 0.4 (0.0-0.4) X10*3/uL Baso # (Auto) 0.0 (0.0-0.2) X10*3/uL Abs Immat Gran (auto) 0.02 (0.00-0.03) X10*3/uL Absolute Neuts (auto) 5.1 (2.0-8.3) x10*3/uL Absolute Nucleated RBC 0.000 (0.0-0.012) X10*3/uL Nucleated RBC % (auto) 0.0 (0.0-0.2) /100WBC Sodium 142 (135-145) mmol/L Potassium 4.1 (3.3-5.1) mmol/L Chloride 108 (96-108) mmol/L Carbon Dioxide 25 (22-29) mmol/L Anion Gap 13 (12-20) BUN 15 (9-16) mg/dL Creatinine 0.73 (0.5-1.4) mg/dL Estim Creat Clear Calc 146.6 Estimated GFR > 60 Random Glucose 142 H (60-115) mg/dL Calcium 8.8 (8.4-10.2) mg/dL Total Bilirubin 0.6 (0.0-1.0) mg/dL AST 24 (5-37) U/L ALT 24 (0-40) U/L Alkaline Phosphatase 117 (39-117) U/L Total Protein 7.2 (6.5-8.0) g/dL Albumin 4.6 (3.5-5.0) g/dL Influenza Type A (PCR) NEGATIVE (Negative) Influenza Type B (PCR) NEGATIVE (Negative) RSV RNA Qual (PCR) NEGATIVE (Negative) SARS-CoV-2 RNA (RT-PCR) NEGATIVE (Negative) Discharge Plan Discharge Clinical Impression: Asthma with acute exacerbation Qualifiers: Asthma severity: mild Asthma persistence: persistent Qualified Code(s): J45.31 - Mild persistent asthma with (acute) exacerbation Patient Disposition: Home, Self-Care Instructions: Asthma (ED) Additional 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 Carry it with you at all times. Please take the prednisone once a day daily until done. Please work on getting a primary care doctor. The contact information for some local practices has been provided. Return to the emergency department with any new or worsening symptoms including: Worsening shortness of breath, fevers greater than 100?, inability to tolerate food, any new symptom that concerns you. Call 911 with any medical emergency. Prescriptions: New prednisone 50 mg tablet 50 mg PO DAILY 5 Days Qty: 5 0RF budesonide-formoterol 160-4.5 mcg/actuation HFA aerosol inhaler 2 puff inhalation BID Qty: 10.2 0RF No Action fluticasone furoate-vilanterol [Breo Ellipta] 100-25 mcg/dose Blister With Device 1 ea inhalation RDAILY Qty: 1 0RF albuterol sulfate 90 mcg/actuation HFA aerosol inhaler 2 puff inhalation Q4-6H PRN (Reason: shortness of breath or wheezing) Qty: 6.7 3RF Rx Instructions: May dispense medication equivalent accepted by patient's insurance albuterol sulfate 2.5 mg /3 mL (0.083 %) solution for nebulization 2.5 mg inhalation Q4-6H PRN (Reason: shortness of breath or wheezing) Qty: 180 2RF Rx Instructions: May dispense medication equivalent accepted by patient's insurance cyclobenzaprine 10 mg tablet 10 mg PO TID PRN (Reason: muscle spasm) Qty: 14 0RF ibuprofen 600 mg tablet 600 mg PO Q8H PRN (Reason: pain) Qty: 14 0RF lidocaine 5 % adhesive patch,medicated 1 patch topical DAILY Qty: 15 0RF Rx Instructions: leave on most painful area for up to 12 hrs prednisone 20 mg tablet 40 mg PO DAILY Qty: 10 0RF albuterol sulfate 90 mcg/actuation HFA aerosol inhaler 2 puff inhalation Q6H PRN (Reason: shortness of breath or wheezing) Qty: 8.5 0RF prednisone 20 mg tablet 40 mg PO DAILY Qty: 8 0RF albuterol sulfate 90 mcg/actuation aerosol powdr breath activated 2 inh inhalation Q4-6H PRN (Reason: shortness of breath or wheezing) Qty: 1 0RF albuterol sulfate 90 mcg/actuation HFA aerosol inhaler 1 puff inhalation QID Qty: 8.5 0RF prednisone 20 mg tablet See Rx Instructions .ROUTE .COMPLEX 12 Days Qty: 26 0RF Rx Instructions: 20 mg orally, Take 3 tablets for 5 days THEN; Take 2 tablets for 4 days THEN; Take 1 tablet for 3 days prednisone 20 mg tablet 40 mg PO DAILY 4 Days Qty: 8 0RF naproxen 500 mg tablet 500 mg PO BID PRN (Reason: pain) Qty: 20 0RF albuterol sulfate 90 mcg/actuation HFA aerosol inhaler 2 inh inhalation Q20M PRN (Reason: shortness of breath or wheezing) Qty: 8.5 0RF prednisone 20 mg tablet 40 mg PO DAILY 5 Days Qty: 10 0RF albuterol sulfate [Ventolin HFA] 90 mcg/actuation HFA aerosol inhaler 2 puff inhalation Q4-6H PRN (Reason: shortness of breath or wheezing) Qty: 8.5 1RF prednisone 50 mg tablet 50 mg PO DAILY 4 Days Qty: 4 0RF albuterol sulfate 90 mcg/actuation aerosol powdr breath activated 2 inh inhalation Q4-6H PRN (Reason: shortness of breath or wheezing) Qty: 1 0RF prednisone 20 mg tablet 40 mg PO DAILY 4 Days Qty: 8 0RF clindamycin HCl 300 mg capsule 300 mg PO TID 7 Days Qty: 21 0RF ibuprofen 600 mg tablet 600 mg PO Q6H PRN (Reason: pain) Qty: 30 0RF acetaminophen [Tylenol Extra Strength] 500 mg tablet 500 - 1,000 mg PO Q6H PRN (Reason: pain) Qty: 30 0RF albuterol sulfate 90 mcg/actuation HFA aerosol inhaler 2 puff inhalation Q4-6H PRN (Reason: shortness of breath or wheezing) Qty: 8.5 0RF prednisone 20 mg tablet 20 mg PO DAILY Qty: 12 0RF Rx Instructions: Take 3 tablets by mouth daily for 2 days then take 2 tablets by mouth daily for 3 days. cefuroxime axetil 500 mg tablet 500 mg PO BID 10 Days Qty: 20 0RF albuterol sulfate 90 mcg/actuation HFA aerosol inhaler 2 puff inhalation Q6H PRN (Reason: shortness of breath or wheezing) Qty: 8.5 0RF doxycycline hyclate 100 mg tablet 100 mg PO BID Qty: 20 0RF dicyclomine 20 mg tablet 20 mg PO TID Qty: 10 0RF sertraline 25 mg tablet 50 mg PO DAILY Qty: 30 0RF (DME) Reset-O Digital Brandy (OUD) Misc See Rx Instructions .MEDSUPPLY Qty: 1 3RF Rx Instructions: As directed (3-4 times a week) 84 days buprenorphine-naloxone [Suboxone] 12-3 mg film 1 film sublingual Q24H Qty: 7 0RF [place] [facility] [place], [place] [facility] [place] [facility] [Provider Group, Primary Care] Print Language: Greek
--- NOTE | 2025-03-18 07:54 | PC.NURSE ---
pt sitting on the bed, He is in no acute respiratory distress. He was medicated as charted, awaiting reassessment. Provided a sandwich on his request.
[2025-03-18 09:24] VITALS: BP 124/78; PULSE 71; RESP 18; TEMP 36.8; O2SAT 96
== END 2025-03-18 09:24 | disposition home or self-care (01) ==
PROVIDERS: Emergency Medicine; Emergency Provider Emergency Medicine
DX: J45.901 Unspecified asthma with (acute) exacerbation (principal); R06.02 Shortness of breath; Z03.818 Encounter for observation for suspected exposure to other biological agents ruled out
CPT/HCPCS: 71046; 80053; 85025; 87637; 93005; 94640; 99284; 99285

== ENCOUNTER → 2025-03-17 21:23 | Outpatient (BNV) | payer OTHER, SELFPAY | PROVIDERS: Emergency Provider Emergency Medicine; Visit Provider Internal Medicine Cardiovascular Disease | DX: R06.02 Shortness of breath (principal) | CPT/HCPCS: 93010 ==

== ENCOUNTER → 2025-03-17 21:23 | Outpatient (BNV) | payer OTHER, SELFPAY | PROVIDERS: Visit Provider Radiology Diagnostic Radiology | DX: R06.02 Shortness of breath (principal) | CPT/HCPCS: 71046 ==

== ENCOUNTER 2025-04-10 20:04 | Emergency (ER) | payer OTHER, SELFPAY ==
--- NOTE | ~2025-04-10 | XR_ITS ---
CLINICAL HISTORY: pain and swelling Five view right knee Comparison: CR - XR KNEE JOSE DE JESUS 4V - 01/07/25 19:00 EDT Findings: Bones intact. No dislocations. Small benign-appearing focus of cortical thickening within the distal diaphysis of the femur without change. No significant loss of joint space, osteophytes, or erosions. No joint effusion. No radiopaque foreign body. IMPRESSION: 1. No acute findings. This document has been electronically signed by: Tarah Nava MD on 04/10/2025 20:46:28
[2025-04-10 20:06] VITALS: BP 124/59; PULSE 73; RESP 16; TEMP 36.6; O2SAT 96; BMI 23.8
--- NOTE | 2025-04-10 20:06 | ED.GENADULT ---
HPI - General Adult General Chief complaint: Extremity Problem Stated complaint: right knee pain Time Seen by Provider: 04/10/25 20:31 Source: patient Mode of arrival: ambulatory Limitations: no limitations History of Present Illness ED Provider: Dr. Hui Christianson HPI narrative: 29-year-old male well known to this emergency department with a history of substance use disorder and asthma presenting with right knee pain that is been ongoing since this morning. States that he stood up and felt his knee ?buckled under him?. He did not fall but felt like he might. Now is having pain with ambulation but is able to bear weight. No other direct injury. No numbness/tingling/weakness in the foot. No skin changes or calf pain. Use Tylenol for pain which helped slightly. Had this issue previously but has never seen an orthopedic surgeon about it. Denies other illness or injury. Related Data Previous Rx's ?Medication ?Instructions ?Recorded fluticasone furoate 100 1 ea inhalation RDAILY #1 ea 07/09/22 mcg-vilanterol 25 mcg/dose inhalation powder (Breo Ellipta) sertraline 25 mg tablet 50 mg (2 x 25 mg) PO DAILY #30 tabs 09/23/22 digital therapeutics, OUD (Reset-O #1 ea 09/30/22 Digital Brandy (OUD)) buprenorphine 12 mg-naloxone 3 mg 1 film sublingual Q24H #7 ea 10/07/22 sublingual film (Suboxone) albuterol sulfate 2.5 mg/3 mL 2.5 mg (3 mL) inhalation Q4-6H PRN 10/23/22 (0.083 %) solution for nebulization shortness of breath or wheezing #180 mL albuterol sulfate 90 mcg/actuation 2 puff inhalation Q4-6H PRN 10/23/22 aerosol inhaler shortness of breath or wheezing #6.7 grams cyclobenzaprine 10 mg tablet 10 mg PO TID PRN muscle spasm #14 04/01/23 tabs ibuprofen 600 mg tablet 600 mg PO Q8H PRN pain #14 tabs 04/01/23 lidocaine 5 % topical patch 1 patch topical DAILY #15 ea 04/01/23 naproxen 500 mg tablet 500 mg PO BID PRN pain #20 tabs 04/29/23 albuterol sulfate 90 mcg/actuation 2 inh inhalation Q20M PRN 04/15/24 aerosol inhaler shortness of breath or wheezing #8.5 grams prednisone 20 mg tablet 40 mg (2 x 20 mg) PO DAILY 5 days 12/04/23 #10 tabs albuterol sulfate 90 mcg/actuation 2 puff inhalation Q4-6H PRN 12/16/23 aerosol inhaler (Ventolin HFA) shortness of breath or wheezing #8.5 grams prednisone 50 mg tablet 50 mg PO DAILY 4 days #4 tabs 12/16/23 albuterol sulfate 90 mcg/actuation 2 inh inhalation Q4-6H PRN 01/18/24 breath activated powder inhaler shortness of breath or wheezing #1 ea prednisone 20 mg tablet 40 mg (2 x 20 mg) PO DAILY 4 days 01/18/24 #8 tabs albuterol sulfate 90 mcg/actuation 2 puff inhalation Q6H PRN 06/12/24 aerosol inhaler shortness of breath or wheezing #8.5 grams prednisone 20 mg tablet 40 mg (2 x 20 mg) PO DAILY #10 tabs 06/12/24 albuterol sulfate 90 mcg/actuation 2 inh inhalation Q4-6H PRN 06/28/24 breath activated powder inhaler shortness of breath or wheezing #1 ea prednisone 20 mg tablet 40 mg (2 x 20 mg) PO DAILY #8 tabs 06/28/24 acetaminophen 500 mg tablet 500 - 1,000 mg (1 - 2 x 500 mg) PO 08/05/24 (Tylenol Extra Strength) Q6H PRN pain #30 tabs clindamycin HCl 300 mg capsule 300 mg PO TID 7 days #21 caps 08/05/24 ibuprofen 600 mg tablet 600 mg PO Q6H PRN pain #30 tabs 08/05/24 albuterol sulfate 90 mcg/actuation 1 puff inhalation QID #8.5 grams 11/03/24 aerosol inhaler prednisone 20 mg tablet See Rx Instructions .Route 11/03/24 .COMPLEX 12 days #26 tabs albuterol sulfate 90 mcg/actuation 2 puff inhalation Q4-6H PRN 01/26/25 aerosol inhaler shortness of breath or wheezing #8.5 grams prednisone 20 mg tablet 20 mg PO DAILY #12 tabs 01/26/25 prednisone 20 mg tablet 40 mg (2 x 20 mg) PO DAILY 4 days 02/04/25 #8 tabs albuterol sulfate 90 mcg/actuation 2 puff inhalation Q6H PRN 02/06/25 aerosol inhaler shortness of breath or wheezing #8.5 grams cefuroxime axetil 500 mg tablet 500 mg PO BID 10 days #20 tabs 02/06/25 doxycycline hyclate 100 mg tablet 100 mg PO BID #20 tabs 02/06/25 dicyclomine 20 mg tablet 20 mg PO TID #10 tabs 03/05/25 budesonide-formoterol HFA 160 2 puff inhalation BID #10.2 grams 03/18/25 mcg-4.5 mcg/actuation aerosol inhaler prednisone 50 mg tablet 50 mg PO DAILY 5 days #5 tabs 03/18/25 Allergies Allergy/AdvReac Type Severity Reaction Status Date / Time seafood Allergy Severe Anaphylaxis Verified 04/10/25 20:08 Penicillins (PENICILLINS) Allergy Intermediate RASH Verified 04/10/25 20:08 Review of Systems Review of Systems: as per HPI, full review of systems performed and negative but for the above mentioned pertinent positives and negatives. [facility] Past Medical History Medical History Substance abuse Alcohol abuse Depression Opioid use disorder Asthma Social History Social History Household Members: Family Household Members Other:: Mom Housing: House Do you presently have visiting nurse or other home services: No Unable to assess alcohol history related to: Unable to respond Alcohol intake: former Patient Tobacco Use Status: Current everyday Tobacco user Tobacco use type: Cigarette Cigarette Packs Per Day: 1 Cigarettes Per Day: 20.0 e-Cigarette/Vaping Use: Currently Using Substance Use Type: Marijuana and Other service: No Current occupational status: employed Current occupation: right hand dominant Physical Exam ED Exam Exam: GENERAL: Well-Appearing, conversant, no acute distress. SKIN: Normal skin color for ethnicity, no rashes noted. HEENT: Normocephalic, atraumatic, no stridor, EOMI. CHEST: Heart regular rate and rhythm, no murmurs, symmetric chest rise and fall. PULMONARY: Clear to auscultation bilaterally, no labored breathing, no wheezes/rhales/rhonchi. ABDOMINAL: Soft, nondistended, nontender, positive bowel sounds in all quadrants. : Deferred. MUSCULOSKELETAL: Normal tone, full range of motion, no deformities, no peripheral edema, no knee effusion, no skin changes overlying the joint, negative anterior, posterior drawer test, negative Selma's test. NEURO: Alert and oriented x3, CN II through XII intact, equal strength and sensation bilateral upper and lower extremities, no focal neurologic deficits. PSYCHIATRIC: Normal affect, fluid speech, good eye contact and appropriate demeanor. Vital Signs: Vital Signs - 24 hr 04/10/25 20:06 Temperature 97.8 F Pulse Rate 73 Respiratory Rate 16 Blood Pressure 124/59 L Pulse Oximetry 96 Oxygen Delivery Method Room Air BMI result Body Mass Index 23.8 Course Course Course Narrative: This is a rapid medical exam performed by Chitra Andrew NP: Additional HPI, ROS, PE not included below will be deferred to primary provider. Patient is a 29-year-old male with history of OUD, alcohol abuse, asthma, anxiety and depression presenting with atraumatic R knee pain. Hx of effusion to same knee. Plan: xray Medical Decision Making Medical Decision Making [facility] Narrative: Patient presents today with musculoskeletal injury. Differential diagnosis includes fracture, soft tissue contusion, ligamentous injury, tendon injury, infection, laceration, among others. Patient is neurovascularly intact upon arrival to the emergency department. Based on physical exam, appropriate imaging was ordered. No obvious injury to the knee. No joint effusion on exam. No calf tenderness. Very low suspicion for DVT. Patient ambulatory in the emergency department without assistance. He is refusing crutches. Given a knee immobilizer for pain. Discussed follow up with Orthopedics for potential knee sprain. Using shared decision making, plan for discharge home to follow-up with primary care and/or specialist. Patient understands and agrees with plan for discharge. Discharged home in stable condition. Differential Diagnosis Differential Diagnoses: The differential diagnosis associated with the presentation includes (as above) Radiology Impression Discussion of test interpretation with radiology: I have reviewed the radiologist's reading. Radiologist Impression: Five view right knee Comparison: CR - XR KNEE JOSE DE JESUS 4V - 01/07/25 19:00 EDT Findings: Bones intact. No dislocations. Small benign-appearing focus of cortical thickening within the distal diaphysis of the femur without change. No significant loss of joint space, osteophytes, or erosions. No joint effusion. No radiopaque foreign body. IMPRESSION: 1. No acute findings. This document has been electronically signed by: Tarah Nava MD on 04/10/2025 20:46:28 Chronic Conditions Patient?s care impacted by: Other (Substance use disorder, asthma) Social Determinants Patient?s care significantly limited by Social Determinants of Health including: Unemployment and Other Social Determinant of Health (On house arrest) Discharge Plan Discharge Clinical Impression: Right knee sprain Patient Disposition: Home, Self-Care Instructions: Knee Sprain (ED) Additional Instructions: Continue to use Tylenol for pain in the knee. Try to rest it as much as possible. You may also use ice for pain and swelling. Use your knee immobilizer for comfort and support. Return to the ER with any new or worsening symptoms. Follow up with the orthopedic surgeon as discussed. Prescriptions: No Action fluticasone furoate-vilanterol [Breo Ellipta] 100-25 mcg/dose Blister With Device 1 ea inhalation RDAILY Qty: 1 0RF albuterol sulfate 90 mcg/actuation HFA aerosol inhaler 2 puff inhalation Q4-6H PRN (Reason: shortness of breath or wheezing) Qty: 6.7 3RF Rx Instructions: May dispense medication equivalent accepted by patient's insurance albuterol sulfate 2.5 mg /3 mL (0.083 %) solution for nebulization 2.5 mg inhalation Q4-6H PRN (Reason: shortness of breath or wheezing) Qty: 180 2RF Rx Instructions: May dispense medication equivalent accepted by patient's insurance cyclobenzaprine 10 mg tablet 10 mg PO TID PRN (Reason: muscle spasm) Qty: 14 0RF ibuprofen 600 mg tablet 600 mg PO Q8H PRN (Reason: pain) Qty: 14 0RF lidocaine 5 % adhesive patch,medicated 1 patch topical DAILY Qty: 15 0RF Rx Instructions: leave on most painful area for up to 12 hrs prednisone 20 mg tablet 40 mg PO DAILY Qty: 10 0RF albuterol sulfate 90 mcg/actuation HFA aerosol inhaler 2 puff inhalation Q6H PRN (Reason: shortness of breath or wheezing) Qty: 8.5 0RF prednisone 20 mg tablet 40 mg PO DAILY Qty: 8 0RF albuterol sulfate 90 mcg/actuation aerosol powdr breath activated 2 inh inhalation Q4-6H PRN (Reason: shortness of breath or wheezing) Qty: 1 0RF albuterol sulfate 90 mcg/actuation HFA aerosol inhaler 1 puff inhalation QID Qty: 8.5 0RF prednisone 20 mg tablet See Rx Instructions .ROUTE .COMPLEX 12 Days Qty: 26 0RF Rx Instructions: 20 mg orally, Take 3 tablets for 5 days THEN; Take 2 tablets for 4 days THEN; Take 1 tablet for 3 days prednisone 20 mg tablet 40 mg PO DAILY 4 Days Qty: 8 0RF naproxen 500 mg tablet 500 mg PO BID PRN (Reason: pain) Qty: 20 0RF albuterol sulfate 90 mcg/actuation HFA aerosol inhaler 2 inh inhalation Q20M PRN (Reason: shortness of breath or wheezing) Qty: 8.5 0RF prednisone 20 mg tablet 40 mg PO DAILY 5 Days Qty: 10 0RF albuterol sulfate [Ventolin HFA] 90 mcg/actuation HFA aerosol inhaler 2 puff inhalation Q4-6H PRN (Reason: shortness of breath or wheezing) Qty: 8.5 1RF prednisone 50 mg tablet 50 mg PO DAILY 4 Days Qty: 4 0RF albuterol sulfate 90 mcg/actuation aerosol powdr breath activated 2 inh inhalation Q4-6H PRN (Reason: shortness of breath or wheezing) Qty: 1 0RF prednisone 20 mg tablet 40 mg PO DAILY 4 Days Qty: 8 0RF clindamycin HCl 300 mg capsule 300 mg PO TID 7 Days Qty: 21 0RF ibuprofen 600 mg tablet 600 mg PO Q6H PRN (Reason: pain) Qty: 30 0RF acetaminophen [Tylenol Extra Strength] 500 mg tablet 500 - 1,000 mg PO Q6H PRN (Reason: pain) Qty: 30 0RF albuterol sulfate 90 mcg/actuation HFA aerosol inhaler 2 puff inhalation Q4-6H PRN (Reason: shortness of breath or wheezing) Qty: 8.5 0RF prednisone 20 mg tablet 20 mg PO DAILY Qty: 12 0RF Rx Instructions: Take 3 tablets by mouth daily for 2 days then take 2 tablets by mouth daily for 3 days. cefuroxime axetil 500 mg tablet 500 mg PO BID 10 Days Qty: 20 0RF albuterol sulfate 90 mcg/actuation HFA aerosol inhaler 2 puff inhalation Q6H PRN (Reason: shortness of breath or wheezing) Qty: 8.5 0RF doxycycline hyclate 100 mg tablet 100 mg PO BID Qty: 20 0RF dicyclomine 20 mg tablet 20 mg PO TID Qty: 10 0RF prednisone 50 mg tablet 50 mg PO DAILY 5 Days Qty: 5 0RF budesonide-formoterol 160-4.5 mcg/actuation HFA aerosol inhaler 2 puff inhalation BID Qty: 10.2 0RF sertraline 25 mg tablet 50 mg PO DAILY Qty: 30 0RF (DME) Reset-O Digital Brandy (OUD) Misc See Rx Instructions .MEDSUPPLY Qty: 1 3RF Rx Instructions: As directed (3-4 times a week) 84 days buprenorphine-naloxone [Suboxone] 12-3 mg film 1 film sublingual Q24H Qty: 7 0RF Referrals: [facility] [Provider Group, Orthopedics] Clinical Impression: Right knee sprain Print Language: Malay
--- OUTSIDE RECORDS SUMMARY | 2025-04-10 20:48 | XMS_ITS | Clinical Summary ---
Author Organization [facility] Facility Address [address] [place] [address] Care Team Providers Care [employer] Name Role Phone Unavailable Primary Care Provider [...] patient's age to complete this topic Insurance [facility]
--- NOTE | 2025-04-10 21:34 | PC.NURSE ---
medicated per oct, knee brace applied.
--- NOTE | 2025-04-10 21:44 | PC.NURSE ---
medicated per oct, knee immobilizer applied and crutches applied. reviewed discharge instructions applied
[2025-04-10 21:47] VITALS: BP 124/59; PULSE 73; RESP 16; TEMP 36.6; O2SAT 96
== END 2025-04-10 21:48 | disposition home or self-care (01) ==
PROVIDERS: Emergency Provider Emergency Medicine
DX: S83.91XA Sprain of unspecified site of right knee, initial encounter (principal); F19.10 Other psychoactive substance abuse, uncomplicated; J45.909 Unspecified asthma, uncomplicated; X58.XXXA Exposure to other specified factors, initial encounter; Y93.89 Activity, other specified; Y92.89 Other specified places as the place of occurrence of the external cause; Y99.8 Other external cause status
CPT/HCPCS: 73564; 99283; 99284

== ENCOUNTER → 2025-04-10 20:07 | Outpatient (BNV) | payer OTHER, SELFPAY | PROVIDERS: Emergency Provider Emergency Medicine; Visit Provider Radiology Diagnostic Radiology | DX: M25.561 Pain in right knee (principal) | CPT/HCPCS: 73564 ==

== ENCOUNTER 2025-04-13 14:19 | Emergency (ER) | payer OTHER, SELFPAY ==
[2025-04-13 14:24] VITALS: BP 137/82; PULSE 62; RESP 18; TEMP 36.3; O2SAT 98; BMI 24.4
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
--- OUTSIDE RECORDS SUMMARY | 2025-04-13 14:32 | XMS_ITS | Clinical Summary ---
Author Organization [facility] Facility Address [address] [place] [address] Care Team Providers Care Electroencephalographic Technologist Name Role Phone Unavailable Primary Care Provider [...] patient's age to complete this topic Insurance [facility]
[2025-04-13 14:34] VITALS: BP 137/82; PULSE 62; RESP 18; TEMP 36.3; O2SAT 98
== END 2025-04-13 14:35 | disposition home or self-care (01) ==
PROVIDERS: Emergency Provider Emergency Medicine
DX: Z48.02 Encounter for removal of sutures (principal)
CPT/HCPCS: 99282

== ENCOUNTER 2025-04-16 19:45 | Emergency (ER) | payer OTHER, SELFPAY ==
--- NOTE | ~2025-04-16 | XR_ITS ---
CLINICAL HISTORY: pain 3 view right ankle Comparison: None provided Findings: Bones intact. No dislocations. No significant loss of joint space, osteophytes, or erosions. No ankle effusion. Overlying ankle monitor artifact. IMPRESSION: 1. No acute findings. This document has been electronically signed by: aCthie Lira MD on 04/16/2025 20:40:02
[2025-04-16 19:52] VITALS: BP 150/71; PULSE 98; RESP 18; TEMP 36.5; O2SAT 97; BMI 23.8
--- NOTE | 2025-04-16 19:52 | ED_ITS ---
HPI - Extremity Injury (Lower) General Chief Complaint: Extremity Injury, Lower Stated Complaint: lt side ankle swelling Related Data Previous Rx's ?Medication ?Instructions ?Recorded fluticasone furoate 100 1 ea inhalation RDAILY #1 ea 07/09/22 mcg-vilanterol 25 mcg/dose inhalation powder (Breo Ellipta) sertraline 25 mg tablet 50 mg (2 x 25 mg) PO DAILY # 30 tabs 09/23/22 [employer] therapeutics, OUD (Reset-O #1 ea 09/30/22 Digital Brandy (OUD)) buprenorphine 12 mg-naloxone 3 mg 1 film sublingual Q2 4H #7 ea 10/07/22 sublingual film (Suboxone) albuterol sulfate 2.5 mg/3 mL 2.5 mg (3 mL) inhalation Q4-6H PRN 10/23/22 (0.083 %) solution for nebulization shortness of breat h or wheezing #180 mL albuterol sulfate 90 mcg/actuation 2 puff inhalation Q 4-6H PRN 10/23/22 aerosol inhaler shortness of breath or wheez ing #6.7 grams cyclobenzaprine 10 mg tablet 10 mg PO TID PRN muscle s pasm #14 04/01/23 tabs ibuprofen 600 mg tablet 600 mg PO Q8H PRN pain #14 t abs 04/01/23 lidocaine 5 % topical patch 1 patch topical DAILY #15 ea 04/01/23 naproxen 500 mg tablet 500 mg PO BID PRN pain #20 t abs 04/29/23 albuterol sulfate 90 mcg/actuation 2 inh inhalation Q2 0M PRN 12/04/23 aerosol inhaler shortness of breath or wheez ing #8.5 grams prednisone 20 mg tablet 40 mg (2 x 20 mg) PO DAILY 5 days 12/04/23 #10 tabs albuterol sulfate 90 mcg/actuation 2 puff inhalation Q 4-6H PRN 12/16/23 aerosol inhaler (Ventolin HFA) shortness of breath or wheezing #8.5 grams prednisone 50 mg tablet 50 mg PO DAILY 4 days #4 tab s 12/16/23 albuterol sulfate 90 mcg/actuation 2 inh inhalation Q4 -6H PRN 01/18/24 breath activated powder inhaler shortness of breath or wheezing #1 ea prednisone 20 mg tablet 40 mg (2 x 20 mg) PO DAILY 4 days 01/18/24 #8 tabs albuterol sulfate 90 mcg/actuation 2 puff inhalation Q 6H PRN 06/12/24 aerosol inhaler shortness of breath or wheez ing #8.5 grams prednisone 20 mg tablet 40 mg (2 x 20 mg) PO DAILY # 10 tabs 06/12/24 albuterol sulfate 90 mcg/actuation 2 inh inhalation Q4 -6H PRN 06/28/24 breath activated powder inhaler shortness of breath or wheezing #1 ea prednisone 20 mg tablet 40 mg (2 x 20 mg) PO DAILY # 8 tabs 06/28/24 acetaminophen 500 mg tablet 500 - 1,000 mg (1 - 2 x 50 0 mg) PO 08/05/24 (Tylenol Extra Strength) Q6H PRN pain #30 tabs clindamycin HCl 300 mg capsule 300 mg PO TID 7 days #2 1 caps 08/05/24 ibuprofen 600 mg tablet 600 mg PO Q6H PRN pain #30 t abs 08/05/24 albuterol sulfate 90 mcg/actuation 1 puff inhalation Q ID #8.5 grams 11/03/24 aerosol inhaler prednisone 20 mg tablet See Rx Instructions .Route 0 11/03/24 .COMPLEX 12 days #26 tabs albuterol sulfate 90 mcg/actuation 2 puff inhalation Q 4-6H PRN 01/26/25 aerosol inhaler shortness of breath or wheez ing #8.5 grams prednisone 20 mg tablet 20 mg PO DAILY #12 tabs 04/14 prednisone 20 mg tablet 40 mg (2 x 20 mg) PO DAILY 4 days 02/04/25 #8 tabs albuterol sulfate 90 mcg/actuation 2 puff inhalation Q 6H PRN 02/06/25 aerosol inhaler shortness of breath or wheez ing #8.5 grams cefuroxime axetil 500 mg tablet 500 mg PO BID 10 days #20 tabs 02/06/25 doxycycline hyclate 100 mg tablet 100 mg PO BID #20 ta bs 02/06/25 dicyclomine 20 mg tablet 20 mg PO TID #10 tabs budesonide-formoterol HFA 160 2 puff inhalation BID #1 0.2 grams 03/18/25 mcg-4.5 mcg/actuation aerosol inhaler prednisone 50 mg tablet 50 mg PO DAILY 5 days #5 tab s 03/18/25 Allergies Allergy/AdvReac Type Severity Reaction Status Date / Time seafood Allergy Severe Anaphylaxis Verified 04/16/25 19:54 Penicillins (PENICILLINS) Allergy Intermediate RASH Verified 04/16/25 19:54 [facility] Past Medical History Medical History Substance abuse Alcohol abuse Depression Opioid use disorder Asthma Social History Social History Household Members: Family Household Members Other:: Mom Housing: House Do you presently have visiting nurse or other home services: No Unable to assess alcohol history related to: Unable to respond Alcohol intake: former Patient Tobacco Use Status: Current everyday Tobacco user Tobacco use type: Cigarette Cigarette Packs Per Day: 1 Cigarettes Per Day: 20.0 e-Cigarette/Vaping Use: Currently Using Substance Use Type: Heroin Advance Directives: No Advance Directives Information Provided: Yes service: No Current occupational status: employed Current occupation: right hand dominant Physical Exam Vital Signs: Vital Signs: Last Vital Signs Temp 97.7 F 04/16/25 19:52 Pulse 98 04/16/25 19:52 Resp 18 04/16/25 19:52 BP 150/71 H 04/16/25 19:52 Pulse Ox 97 04/16/25 19:52 O2 Del Method Room Air 04/16/25 19:52 BMI result Body Mass Index 23.8 Course Course Course Narrative: This is an RME: Additional HPI, ROS, PE not included below will be deferred to primary provider. RME assessment and note performed by: Arpita Jacobson PA-C This is a 63-lbyk-ric-male who presents to the ER with concerns for right ankle pain since today. No known injury or trauma. point TTP overlying the medial mallelous. Plan: xray, further ER eval needed Reevaluation(s) Reevaluation #1: Patient left without completing treatment. Discharge Plan Discharge Clinical Impression: Ankle pain, right Patient Disposition: Left W/O Completing Treatment Prescriptions: No Action fluticasone furoate-vilanterol [Breo Ellipta] 100-25 mcg/dose Blister With Device 1 ea inhalation RDAILY Qty: 1 0RF albuterol sulfate 90 mcg/actuation HFA aerosol inhaler 2 puff inhalation Q4-6H PRN (Reason: shortness of breath or wheezing) Qty: 6.7 3RF Rx Instructions: May dispense medication equivalent accepted by patient's insurance albuterol sulfate 2.5 mg /3 mL (0.083 %) solution for nebulization 2.5 mg inhalation Q4-6H PRN (Reason: shortness of breath or wheezing) Qty: 180 2RF Rx Instructions: May dispense medication equivalent accepted by patient's insurance cyclobenzaprine 10 mg tablet 10 mg PO TID PRN (Reason: muscle spasm) Qty: 14 0RF ibuprofen 600 mg tablet 600 mg PO Q8H PRN (Reason: pain) Qty: 14 0RF lidocaine 5 % adhesive patch,medicated 1 patch topical DAILY Qty: 15 0RF Rx Instructions: leave on most painful area for up to 12 hrs prednisone 20 mg tablet 40 mg PO DAILY Qty: 10 0RF albuterol sulfate 90 mcg/actuation HFA aerosol inhaler 2 puff inhalation Q6H PRN (Reason: shortness of breath or wheezing) Qty: 8.5 0RF prednisone 20 mg tablet 40 mg PO DAILY Qty: 8 0RF albuterol sulfate 90 mcg/actuation aerosol powdr breath activated 2 inh inhalation Q4-6H PRN (Reason: shortness of breath or wheezing) Qty: 1 0RF albuterol sulfate 90 mcg/actuation HFA aerosol inhaler 1 puff inhalation QID Qty: 8.5 0RF prednisone 20 mg tablet See Rx Instructions .ROUTE .COMPLEX 12 Days Qty: 26 0RF Rx Instructions: 20 mg orally, Take 3 tablets for 5 days THEN; Take 2 tablets for 4 days THEN; Take 1 tablet for 3 days prednisone 20 mg tablet 40 mg PO DAILY 4 Days Qty: 8 0RF naproxen 500 mg tablet 500 mg PO BID PRN (Reason: pain) Qty: 20 0RF albuterol sulfate 90 mcg/actuation HFA aerosol inhaler 2 inh inhalation Q20M PRN (Reason: shortness of breath or wheezing) Qty: 8.5 0RF prednisone 20 mg tablet 40 mg PO DAILY 5 Days Qty: 10 0RF albuterol sulfate [Ventolin HFA] 90 mcg/actuation HFA aerosol inhaler 2 puff inhalation Q4-6H PRN (Reason: shortness of breath or wheezing) Qty: 8.5 1RF prednisone 50 mg tablet 50 mg PO DAILY 4 Days Qty: 4 0RF albuterol sulfate 90 mcg/actuation aerosol powdr breath activated 2 inh inhalation Q4-6H PRN (Reason: shortness of breath or wheezing) Qty: 1 0RF prednisone 20 mg tablet 40 mg PO DAILY 4 Days Qty: 8 0RF clindamycin HCl 300 mg capsule 300 mg PO TID 7 Days Qty: 21 0RF ibuprofen 600 mg tablet 600 mg PO Q6H PRN (Reason: pain) Qty: 30 0RF acetaminophen [Tylenol Extra Strength] 500 mg tablet 500 - 1,000 mg PO Q6H PRN (Reason: pain) Qty: 30 0RF albuterol sulfate 90 mcg/actuation HFA aerosol inhaler 2 puff inhalation Q4-6H PRN (Reason: shortness of breath or wheezing) Qty: 8.5 0RF prednisone 20 mg tablet 20 mg PO DAILY Qty: 12 0RF Rx Instructions: Take 3 tablets by mouth daily for 2 days then take 2 tablets by mouth daily for 3 days. cefuroxime axetil 500 mg tablet 500 mg PO BID 10 Days Qty: 20 0RF albuterol sulfate 90 mcg/actuation HFA aerosol inhaler 2 puff inhalation Q6H PRN (Reason: shortness of breath or wheezing) Qty: 8.5 0RF doxycycline hyclate 100 mg tablet 100 mg PO BID Qty: 20 0RF dicyclomine 20 mg tablet 20 mg PO TID Qty: 10 0RF prednisone 50 mg tablet 50 mg PO DAILY 5 Days Qty: 5 0RF budesonide-formoterol 160-4.5 mcg/actuation HFA aerosol inhaler 2 puff inhalation BID Qty: 10.2 0RF sertraline 25 mg tablet 50 mg PO DAILY Qty: 30 0RF (DME) Reset-O Digital Brandy (OUD) Misc See Rx Instructions .MEDSUPPLY Qty: 1 3RF Rx Instructions: As directed (3-4 times a week) 84 days buprenorphine-naloxone [Suboxone] 12-3 mg film 1 film sublingual Q24H Qty: 7 0RF Discharge Date/Time: 04/16/25 23:20
--- OUTSIDE RECORDS SUMMARY | 2025-04-16 20:44 | XMS_ITS | Encounter Summary ---
Author Organization [employer] Address [address] [facility] [address] [place] [address] Care Team Providers Care Research Test Engine Evaluator Name Role Phone Unavailable Primary Care Provider Unavailabl e Reason for Visit * Reason Onset Date Comments emergency appt 08/09/2024 Encounter Details Date Type Department Care Team ([facility] st Contact Info) Description 08/09/2024 Telephone [facility] [address] [place] [address] Denise Gannon, DDS [address] [place] [address] emergency appt Social History Tobacco Use Types [...]
--- OUTSIDE RECORDS SUMMARY | 2025-04-16 20:44 | XMS_ITS | Clinical Summary ---
Author Organization [employer] Address [address] [facility] [address] [place] [address] Care Team Providers Care Utilization Management Um Nurse Name Role Phone Unavailable Primary Care Provider Unavailabl e Encounters Date Type Department Care Team Description 02/17/2025 Telephone [facility] [address] [place] [address] [phone] Doug Chi MD 01/24/2025 Telephone [facility] [address] [place], [place] [phone] Doug Chi MD New pt from Last 3 Months Social History Tobacco Use Types Packs/Day Years Used Date Smoking Tobacco: Never Assessed Sex and Gender Information Value Date Recorded Sex Assigned at Not on file Legal Sex Male 11:16 AM EDT Gender Identity Not on file Sexual Orientation Not on file Plan of Treatment Health Maintenance Due Date Last Done Comments Depression Screening 1993 HIV Screening 1993 SDOH Screening 1993 Disability Screening 1993 Alcohol/Substance Use Screening 2005 Tobacco Screening 2005 Family Planning (PISQ) 2008 HPV Vaccines (1 - Male 3-dos e series) 2008 Hepatitis C Screening 2011 DTaP/Tdap/Td Vaccines (1 - Tdap) 2012 Hepatitis B Vaccines (1 of 3 - 19+ 3-dose series) 2012 COVID-19 Vaccine ( - 2023-2 5 season) 2024 Influenza Vaccine (#1) 2025 Zoster Vaccines (1 of 2) 2043 RSV [...] Years) and At-Risk Patients (6 to 49) Years Aged Out No longer eligible b ased on patient's age to complete this topic RSV under 20 months Aged Out No longe r eligible based on patient's age to complete this topic Rotavirus Vaccines Aged Out No longer eligible based on patient's age to complete this topic Insurance [facility]
--- OUTSIDE RECORDS SUMMARY | 2025-04-16 20:44 | XMS_ITS | Clinical Summary ---
Author Organization [facility] Facility Address [address] [place] [address] Care Team Providers Care Collar Shaper Operator Name Role Phone Unavailable Primary Care Provider [...] patient's age to complete this topic Insurance [facility]
--- NOTE | 2025-04-16 22:29 | PC.NURSE ---
No answer when called at 22:25. Did not notify staff of leaving ED waiting room. cottrell operator (Izzy Travis) aware.
== END 2025-04-16 23:20 | disposition left against medical advice (07) ==
PROVIDERS: Emergency Provider Emergency Medicine
DX: M25.571 Pain in right ankle and joints of right foot (principal); R60.0 Localized edema; F17.200 Nicotine dependence, unspecified, uncomplicated; Z71.6 Tobacco abuse counseling
CPT/HCPCS: 73610; 99281

== ENCOUNTER → 2025-04-16 19:54 | Outpatient (BNV) | payer OTHER, SELFPAY | PROVIDERS: Visit Provider Specialist | DX: M25.571 Pain in right ankle and joints of right foot (principal) | CPT/HCPCS: 73610 ==

== ENCOUNTER 2025-04-23 17:24 | Emergency (ER) | payer OTHER, SELFPAY ==
--- NOTE | ~2025-04-23 | XR_ITS ---
CLINICAL HISTORY: sob 1 view chest x-ray Comparison: CR - XR CHEST 2V - 03/17/25 22:03 EDT Findings: The lungs are clear. Normal size heart. No acute fracture. IMPRESSION: 1. No acute findings. This document has been electronically signed by: Ángel Roldan MD on 04/23/2025 19:05:35
[2025-04-23 17:27] VITALS: BP 126/70; BP 149/77; PULSE 68; PULSE 78; RESP 18; O2SAT 5; O2SAT 98; BMI 26.1
[2025-04-23 17:33] LABS: Glucose, Whole Blood 141 mg/dL (60-115)
--- NOTE | 2025-04-23 17:35 | ECG_ITS ---
Test Reason : sob Blood Pressure : */* mmHG Vent. Rate : 73 BPM Atrial Rate : 73 BPM P-R Int : 160 ms QRS Dur : 84 ms QT Int : 370 ms P-R-T Axes : 74 93 22 degrees QTcB Int : 407 ms Normal sinus rhythm Rightward axis Borderline ECG When compared with ECG of 17-Mar-2025 21:28, No significant change was found Referred By: Jeana Gutierrez Electronically Signed By: Ang Greco
[2025-04-23 17:36] VITALS: TEMP 36.5
--- NOTE | 2025-04-23 17:36 | ED_ITS ---
HPI - Overdose General Chief Complaint: Overdose Stated Complaint: Heroine/pcp use, minimally responsive Time Seen by Provider: 04/23/25 17:31 History of Present Illness HPI Narrative: Patient is a 29-year-old male with a history of polysubstance abuse. Was found by PD to be not breathing well. Sweating. Has a history of PCP use has a history of narcotic abuse history of alcohol abuse. Patient denies any suicidal homicidal intentions was extremely lethargic on arrival pinpoint pupils. 0.5 of Narcan was given prior to arrival only minimal results upon arriving patient is not breathing requiring bagging. I immediately give patient 8 mg of Narcan intranasally. Patient's sugar was checked to be 140. Patient's mental status improved after about a minute started yelling started moving around started breathing. Patient was then placed on the monitor. Related Data Previous Rx's ?Medication ?Instructions ?Recorded fluticasone furoate 100 1 ea inhalation RDAILY #1 ea 07/09/22 mcg-vilanterol 25 mcg/dose inhalation powder (Breo Ellipta) sertraline 25 mg tablet 50 mg (2 x 25 mg) PO DAILY # 30 tabs 09/23/22 INCHRON, OUD (Reset-O #1 ea 09/30/22 Digital Brandy (OUD)) buprenorphine 12 mg-naloxone 3 mg 1 film sublingual Q2 4H #7 ea 10/07/22 sublingual film (Suboxone) albuterol sulfate 2.5 mg/3 mL 2.5 mg (3 mL) inhalation Q4-6H PRN 10/23/22 (0.083 %) solution for nebulization shortness of breat h or wheezing #180 mL albuterol sulfate 90 mcg/actuation 2 puff inhalation Q 4-6H PRN 10/23/22 aerosol inhaler shortness of breath or wheez ing #6.7 grams cyclobenzaprine 10 mg tablet 10 mg PO TID PRN muscle s pasm #14 04/01/23 tabs ibuprofen 600 mg tablet 600 mg PO Q8H PRN pain #14 t abs 04/01/23 lidocaine 5 % topical patch 1 patch topical DAILY #15 ea 04/01/23 naproxen 500 mg tablet 500 mg PO BID PRN pain #20 t abs 04/29/23 albuterol sulfate 90 mcg/actuation 2 inh inhalation Q2 0M PRN 04/15/24 aerosol inhaler shortness of breath or wheez ing #8.5 grams prednisone 20 mg tablet 40 mg (2 x 20 mg) PO DAILY 5 days 12/04/23 #10 tabs albuterol sulfate 90 mcg/actuation 2 puff inhalation Q 4-6H PRN 12/16/23 aerosol inhaler (Ventolin HFA) shortness of breath or wheezing #8.5 grams prednisone 50 mg tablet 50 mg PO DAILY 4 days #4 tab s 12/16/23 albuterol sulfate 90 mcg/actuation 2 inh inhalation Q4 -6H PRN 01/18/24 breath activated powder inhaler shortness of breath or wheezing #1 ea prednisone 20 mg tablet 40 mg (2 x 20 mg) PO DAILY 4 days 01/18/24 #8 tabs albuterol sulfate 90 mcg/actuation 2 puff inhalation Q 6H PRN 06/12/24 aerosol inhaler shortness of breath or wheez ing #8.5 grams prednisone 20 mg tablet 40 mg (2 x 20 mg) PO DAILY # 10 tabs 06/12/24 albuterol sulfate 90 mcg/actuation 2 inh inhalation Q4 -6H PRN 06/28/24 breath activated powder inhaler shortness of breath or wheezing #1 ea prednisone 20 mg tablet 40 mg (2 x 20 mg) PO DAILY # 8 tabs 06/28/24 acetaminophen 500 mg tablet 500 - 1,000 mg (1 - 2 x 50 0 mg) PO 08/05/24 (Tylenol Extra Strength) Q6H PRN pain #30 tabs clindamycin HCl 300 mg capsule 300 mg PO TID 7 days #2 1 caps 08/05/24 ibuprofen 600 mg tablet 600 mg PO Q6H PRN pain #30 t abs 08/05/24 albuterol sulfate 90 mcg/actuation 1 puff inhalation Q ID #8.5 grams 11/03/24 aerosol inhaler prednisone 20 mg tablet See Rx Instructions .Route 0 11/03/24 .COMPLEX 12 days #26 tabs albuterol sulfate 90 mcg/actuation 2 puff inhalation Q 4-6H PRN 01/26/25 aerosol inhaler shortness of breath or wheez ing #8.5 grams prednisone 20 mg tablet 20 mg PO DAILY #12 tabs 04/14 prednisone 20 mg tablet 40 mg (2 x 20 mg) PO DAILY 4 days 02/04/25 #8 tabs albuterol sulfate 90 mcg/actuation 2 puff inhalation Q 6H PRN 02/06/25 aerosol inhaler shortness of breath or wheez ing #8.5 grams cefuroxime axetil 500 mg tablet 500 mg PO BID 10 days #20 tabs 02/06/25 doxycycline hyclate 100 mg tablet 100 mg PO BID #20 ta bs 02/06/25 dicyclomine 20 mg tablet 20 mg PO TID #10 tabs budesonide-formoterol HFA 160 2 puff inhalation BID #1 0.2 grams 03/18/25 mcg-4.5 mcg/actuation aerosol inhaler prednisone 50 mg tablet 50 mg PO DAILY 5 days #5 tab s 03/18/25 Allergies Allergy/AdvReac Type Severity Reaction Status Date / Time seafood Allergy Severe Anaphylaxis Verified 04/16/25 19:54 Penicillins (PENICILLINS) Allergy Intermediate RASH Verified 04/16/25 19:54 Review of Systems 2 Review of Systems: Patient refused to answer specific review of system PMFSH Past Medical History Medical History Substance abuse Alcohol abuse Depression Opioid use disorder Asthma Social History Social History Household Members: Family Household Members Other:: Mom Housing: House Do you presently have visiting nurse or other home services: No Unable to assess alcohol history related to: Unable to respond Alcohol intake: former Patient Tobacco Use Status: Current everyday Tobacco user Tobacco use type: Cigarette Cigarette Packs Per Day: 1 Cigarettes Per Day: 20.0 Smoked in Last 30 Days: No e-Cigarette/Vaping Use: Currently Using Use of substances other than those prescribed or required for medical reasons: Unable to respond Substance Use Type: Heroin Advance Directives: No Advance Directives Information Provided: Yes Do you have a plan to hurt others: No Plan service: No Current occupational status: employed Current occupation: right hand dominant Physical Exam 2 Exam: Exam: Appearance: Still lethargic but moving all extremity answering simple questions Eyes: Pinpoint ENT: Pharynx normal. Neck: Normal inspection. Neck supple. No lymph nodes noted. No crepitus CVS: Normal heart rate and rhythm. Pulses normal. Normal S1 and S2 Respiratory: Diminished breath sounds bilaterally mild wheezing noted Abdomen: Soft and nontender. No rigidity. No distention. good BS x4 Skin: Diaphoretic Extremities: No lower extremity edema. Neurovascular intact to all extremities. No Lacerations. No Rash Neuro: Oriented X 3. No motor deficit. No sensory deficit. Moving all extermities. No slurred speech Vital Signs: Vital Signs: Last Vital Signs Temp 97.7 F 04/23/25 17:36 Pulse 97 04/23/25 18:37 Resp 19 04/23/25 18:37 BP 141/83 H 04/23/25 18:37 Pulse Ox 100 04/23/25 18:37 O2 Del Method Nasal Cannula 04/23/25 18:37 O2 Flow Rate 2 04/23/25 18:37 BMI result Body Mass Index 26.1 Medications Administered Discontinued Medications Generic Name Dose Route Start Last Admin Trade Name Freq PRN Reason Stop Dose Admin Sodium Chloride 1,000 mls @ 999 mls/hr 04/23/25 17:45 04/23/25 18:41 Ns IV 04/23/25 18:45 Infused .Q1H1M DIAMOND Infusion Naloxone HCl 8 mg 04/23/25 17:38 04/23/25 17:39 Naloxone Hcl Nasal 4 Mg Russell NOSTRILALT 04/23/25 17:39 8 mg ONCE ONE Administration Medical Decision Making Medical Decision Making MDM Narrative: Low respiratory rate decreased mental status pinpoint pupil suggestive of narcotic use. Patient's sugar was normal no evidence for hypoglycemia the dose of Narcan given by EMS was somewhat low. We give additional dose of Narcan nasally. The nasal Narcan was chosen as it was the fast is available. Patient woke up. IV line established. Labs were sent. Will monitor very closely. Patient is currently breathing O2 sats 97% on room air placed on [address]. PCO2 somewhat high in the 60s but with a good waveform. Will go ahead and get a VBG to delineate. Labs ordered. Patient denies suicidal homicidal ideations. Use drugs for recreational reasons. My interpretation patient's blood gas showed acute CO2 retention. Question secondary to heroin use. Monitor in the emergency department for approximately 3 hours. Patient now awake alert has no distress is breathing spontaneously maintain his oxygen. He is awake alert. He used the drug for recreational reasons only. Patient does not want detox. Offered a Narcan kit to go home. Explained the need for close follow-up. Explained the need to stop using heroin. Patient states understanding. Will be discharged home after ambulation and repeat VBG. Differential Diagnosis Differential Diagnoses: The differential diagnosis associated with the presentation includes Narcotic overdose, hypoglycemia, intracranial bleed Admission/Observation Consideration of admission/observation: Escalation of care including admission/observation considered Lab Data MDM Lab Attestation statement: I reviewed the patient's lab results. 04/23/25 17:55 04/23/25 17:55 Labs: Lab Results 04/23/25 04/23/25 04/23/25 Range/Units 17:29 17:55 18:00 WBC 10.7 (4.8-10.8) X10*3/uL RBC 5.19 (4.60-5.80) X10*6/uL Hgb 15.1 (14.0-18.0) g/dl Hct 44.8 (42.0-52.0) % MCV 86.3 (80.0-98.0) fL MCH 29.1 (27.0-33.0) pg MCHC 33.7 (31.0-36.0) g/dl RDW 13.2 (11.0-16.0) % Plt Count 294 (160-400) X10*3/uL MPV 10.5 (9.4-12.4) fL Immature Gran % (Auto) 0.6 H (0.0-0.4) % Neut % (Auto) 66.5 (45-73) % Lymph % (Auto) 20.9 (20-40) % [place] % (Auto) 7.9 (2-11) % Eos % (Auto) 3.6 (0-4) % Baso % (Auto) 0.5 (0-2) % Lymph # (Auto) 2.2 (1.2-4.9) X10*3/uL [place] # (Auto) 0.8 (0.1-1.2) X10*3/uL Eos # (Auto) 0.4 (0.0-0.4) X10*3/uL Baso # (Auto) 0.1 (0.0-0.2) X10*3/uL Abs Immat Gran (auto) 0.06 H (0.00-0.03) X10*3/uL Absolute Neuts (auto) 7.1 (2.0-8.3) x10*3/uL Absolute Nucleated RBC 0.000 (0.0-0.012) X10*3/uL Nucleated RBC % (auto) 0.0 (0.0-0.2) /100WBC VBG pH 7.24 L (7.32-7.43) VBG pCO2 70 mmHg VBG pO2 32 mmHg VBG HCO3 30 H (22-26) mmol/L VBG O2 Saturation 43.0 % VBG Base Excess 1.3 mmol/L Sodium 145 (135-145) mmol/L Potassium 4.2 (3.3-5.1) mmol/L Chloride 105 (96-108) mmol/L Carbon Dioxide 30 H (22-29) mmol/L Anion Gap 14 (12-20) BUN 17 H (9-16) mg/dL Creatinine 1.02 (0.5-1.4) mg/dL Estim Creat Clear Calc 108.3 Estimated GFR > 60 POC Glucose 141 H (60-115) mg/dL Random Glucose 123 H (60-115) mg/dL Calcium 9.1 (8.4-10.2) mg/dL Total Bilirubin 0.6 (0.0-1.0) mg/dL Direct Bilirubin 0.2 (0.0-0.5) mg/dL AST 31 (5-37) U/L ALT 29 (0-40) U/L Alkaline Phosphatase 109 (39-117) U/L Troponin I High Sens < 2.7 (<3.5-35.0) ng/L Total Protein 7.9 (6.5-8.0) g/dL Albumin 5.1 H (3.5-5.0) g/dL Lipase 8 (8-78) U/L Salicylates < 5.0 L (15-30) mg/dL Acetaminophen < 3 (<30) mcg/mL Ethyl Alcohol < 10 mg/dL Independent Interpretation I performed an independent interpretation of an: EKG (My interpretation of patient's EKG showed a sinus rhythm heart rate is 70 SC QRS QTC normal no acute ST segment elevation noted. When compared to a previous EKG it is unchanged.) and Plain X-Ray (My interpretation patient's chest x-ray is grossly negative for pneumonia pneumothorax) Radiology Impression Discussion of test interpretation with radiology: I have reviewed the radiologist's reading. Chronic Conditions Polysubstance abuse Social Determinants Patient?s care significantly limited by Social Determinants of Health including: Low income, Alcoholism and drug addiction in family, Problems related to primary support group and Unemployment Critical Care Time Critical Care Time Critical Care Time: Yes Total Critical Care Time: 40 Attestation: I have personally provided 40 minutes of critical care time exclusive of time spent on separately billable procedures. ?Time includes review of lab data, radiology results, discussion with consultants, and monitoring for potential decompensation. ?Interventions were performed as documented above Discharge Plan Discharge Clinical Impression: Opioid use disorder Patient Disposition: Home, Self-Care Prescriptions: No Action fluticasone furoate-vilanterol [Breo Ellipta] 100-25 mcg/dose Blister With Device 1 ea inhalation RDAILY Qty: 1 0RF albuterol sulfate 90 mcg/actuation HFA aerosol inhaler 2 puff inhalation Q4-6H PRN (Reason: shortness of breath or wheezing) Qty: 6.7 3RF Rx Instructions: May dispense medication equivalent accepted by patient's insurance albuterol sulfate 2.5 mg /3 mL (0.083 %) solution for nebulization 2.5 mg inhalation Q4-6H PRN (Reason: shortness of breath or wheezing) Qty: 180 2RF Rx Instructions: May dispense medication equivalent accepted by patient's insurance cyclobenzaprine 10 mg tablet 10 mg PO TID PRN (Reason: muscle spasm) Qty: 14 0RF ibuprofen 600 mg tablet 600 mg PO Q8H PRN (Reason: pain) Qty: 14 0RF lidocaine 5 % adhesive patch,medicated 1 patch topical DAILY Qty: 15 0RF Rx Instructions: leave on most painful area for up to 12 hrs prednisone 20 mg tablet 40 mg PO DAILY Qty: 10 0RF albuterol sulfate 90 mcg/actuation HFA aerosol inhaler 2 puff inhalation Q6H PRN (Reason: shortness of breath or wheezing) Qty: 8.5 0RF prednisone 20 mg tablet 40 mg PO DAILY Qty: 8 0RF albuterol sulfate 90 mcg/actuation aerosol powdr breath activated 2 inh inhalation Q4-6H PRN (Reason: shortness of breath or wheezing) Qty: 1 0RF albuterol sulfate 90 mcg/actuation HFA aerosol inhaler 1 puff inhalation QID Qty: 8.5 0RF prednisone 20 mg tablet See Rx Instructions .ROUTE .COMPLEX 12 Days Qty: 26 0RF Rx Instructions: 20 mg orally, Take 3 tablets for 5 days THEN; Take 2 tablets for 4 days THEN; Take 1 tablet for 3 days prednisone 20 mg tablet 40 mg PO DAILY 4 Days Qty: 8 0RF naproxen 500 mg tablet 500 mg PO BID PRN (Reason: pain) Qty: 20 0RF albuterol sulfate 90 mcg/actuation HFA aerosol inhaler 2 inh inhalation Q20M PRN (Reason: shortness of breath or wheezing) Qty: 8.5 0RF prednisone 20 mg tablet 40 mg PO DAILY 5 Days Qty: 10 0RF albuterol sulfate [Ventolin HFA] 90 mcg/actuation HFA aerosol inhaler 2 puff inhalation Q4-6H PRN (Reason: shortness of breath or wheezing) Qty: 8.5 1RF prednisone 50 mg tablet 50 mg PO DAILY 4 Days Qty: 4 0RF albuterol sulfate 90 mcg/actuation aerosol powdr breath activated 2 inh inhalation Q4-6H PRN (Reason: shortness of breath or wheezing) Qty: 1 0RF prednisone 20 mg tablet 40 mg PO DAILY 4 Days Qty: 8 0RF clindamycin HCl 300 mg capsule 300 mg PO TID 7 Days Qty: 21 0RF ibuprofen 600 mg tablet 600 mg PO Q6H PRN (Reason: pain) Qty: 30 0RF acetaminophen [Tylenol Extra Strength] 500 mg tablet 500 - 1,000 mg PO Q6H PRN (Reason: pain) Qty: 30 0RF albuterol sulfate 90 mcg/actuation HFA aerosol inhaler 2 puff inhalation Q4-6H PRN (Reason: shortness of breath or wheezing) Qty: 8.5 0RF prednisone 20 mg tablet 20 mg PO DAILY Qty: 12 0RF Rx Instructions: Take 3 tablets by mouth daily for 2 days then take 2 tablets by mouth daily for 3 days. cefuroxime axetil 500 mg tablet 500 mg PO BID 10 Days Qty: 20 0RF albuterol sulfate 90 mcg/actuation HFA aerosol inhaler 2 puff inhalation Q6H PRN (Reason: shortness of breath or wheezing) Qty: 8.5 0RF doxycycline hyclate 100 mg tablet 100 mg PO BID Qty: 20 0RF dicyclomine 20 mg tablet 20 mg PO TID Qty: 10 0RF prednisone 50 mg tablet 50 mg PO DAILY 5 Days Qty: 5 0RF budesonide-formoterol 160-4.5 mcg/actuation HFA aerosol inhaler 2 puff inhalation BID Qty: 10.2 0RF sertraline 25 mg tablet 50 mg PO DAILY Qty: 30 0RF (DME) Reset-O Digital Brandy (OUD) Misc See Rx Instructions .MEDSUPPLY Qty: 1 3RF Rx Instructions: As directed (3-4 times a week) 84 days buprenorphine-naloxone [Suboxone] 12-3 mg film 1 film sublingual Q24H Qty: 7 0RF Referrals: [facility] [Physician, Medical] - 04/25/25 Print Language: Libyan
[2025-04-23] MEDS: Naloxone HCl Nasal 4 MG SPRAY 8 MG NOSTRILALT (17:39)
--- NOTE | 2025-04-23 17:48 | PC.NURSE ---
29 M presents to ED for an overdose. Pt sts he did heroine today, was found in his kitchen. Pt was being bagged by bvm upon arrival, recieved 0.5mg IV from EMS, 2 nasal narcan doses here and was able to breath on his own. Pt goes in and out of consciousness, was very sweaty upon arrival. RR even and unlabored, denies any pain or discomfort. Pt denies SI/HI.
[2025-04-23 18:02] LABS: Venous Blood Gas Refer to POC result
[2025-04-23 18:04] LABS: VBG HCO3 30 mmol/L (22-26); VBG O2 % Saturation 43.0 %
[2025-04-23 18:09] LABS: Hematocrit 44.8 % (42.0-52.0); Hemoglobin 15.1 g/dl (14.0-18.0); Imm Gran Abs Auto 0.06 X10*3/uL (0.00-0.03); Imm Gran Pct Auto 0.6 % (0.0-0.4); Lymphocytes Absolute Auto 2.2 X10*3/uL (1.2-4.9); MANUAL DIFF FLAG NO; Mean Corpuscular HGB Conc 33.7 g/dl (31.0-36.0); Mean Corpuscular Hemoglobin 29.1 pg (27.0-33.0); Mean Corpuscular Volume 86.3 fL (80.0-98.0); NRBC Abs Auto 0.000 X10*3/uL (0.0-0.012); NRBC Pct Auto 0.0 /100WBC (0.0-0.2); Platelet Count 294 X10*3/uL (160-400); Red Blood Count 5.19 X10*6/uL (4.60-5.80); White Blood Count 10.7 X10*3/uL (4.8-10.8)
[2025-04-23 18:17] LABS: Acetaminophen LAB < 3 mcg/mL (<30); Alanine Aminotransferase 29 U/L (0-40); Albumin Level 5.1 g/dL (3.5-5.0); Alkaline Phosphatase 109 U/L (39-117); Anion Gap 14 (12-20); Aspartate Amino Transferase 31 U/L (5-37); Blood Urea Nitrogen 17 mg/dL (9-16); Calcium 9.1 mg/dL (8.4-10.2); Carbon Dioxide 30 mmol/L (22-29); Chloride 105 mmol/L (96-108); Creatinine Clr Calc Pharmacy 108.3; Estimated Glomerular Filt Rate > 60; Lipase 8 U/L (8-78); Potassium 4.2 mmol/L (3.3-5.1); Sodium 145 mmol/L (135-145); Total Protein 7.9 g/dL (6.5-8.0)
[2025-04-23 18:20] LABS: Salicylate < 5.0 mg/dL (15-30); Troponin-I High Sensitivity < 2.7 ng/L (<3.5-35.0)
--- OUTSIDE RECORDS SUMMARY | 2025-04-23 18:33 | XMS_ITS | Clinical Summary ---
Author Organization [facility] Facility Address [address] [place] [address] Care Team Providers Care Patternator Name Role Phone Unavailable Primary Care Provider [...] patient's age to complete this topic Insurance [facility]
[2025-04-23 18:37] VITALS: BP 141/83; PULSE 97; RESP 19; O2SAT 100
[2025-04-23 22:26] VITALS: BP 103/57; PULSE 80; RESP 14; TEMP 36.8; O2SAT 95
--- NOTE | 2025-04-23 22:27 | PC.NURSE ---
Pt awake, given sandwich and gina octavia. Pt ambulated to BR independently with steady gait.
[2025-04-23 22:40] LABS: Appearance Urine Clear; Glucose Urine UA Negative (Negative); PH 5.5 (5.0-9.0); Specific Gravity - Urine 1.015 (1.005-1.025); UMIC TRIGGER UACC YES
[2025-04-23 22:53] LABS: Cannabinoid Screen Urine POSITIVE (Not Detect)
[2025-04-23 22:54] LABS: VBG HCO3 30 mmol/L (22-26); VBG O2 % Saturation 41.0 %
[2025-04-23 22:55] LABS: Venous Blood Gas Refer to POC result
[2025-04-23] MEDS: Albuterol/Iprat 2.5/0.5MG 3 ML AMPUL.NEB INHALE (23:04)
[2025-04-23 23:05] VITALS: PULSE 92; RESP 16; O2SAT 94
[2025-04-24] VITALS: BP 109/54; PULSE 84; RESP 18; TEMP 36.9; O2SAT 97
[2025-04-24] MEDS: Naloxone HCl Nasal TAKE HOME 4 MG SPRAY 8 MG NOSTRILALT (00:55)
[2025-04-24 01:32] VITALS: BP 109/54; PULSE 84; RESP 18; TEMP 36.9; O2SAT 97
== END 2025-04-24 01:34 | disposition home or self-care (01) ==
PROVIDERS: Emergency Provider Emergency Medicine Emergency Medical Services
DX: T40.1X1A Poisoning by heroin, accidental (unintentional), initial encounter (principal); Y92.9 Unspecified place or not applicable; R40.4 Transient alteration of awareness; R06.02 Shortness of breath; R94.31 Abnormal electrocardiogram [ECG] [EKG]; R11.0 Nausea; Z51.81 Encounter for therapeutic drug level monitoring; Z79.899 Other long term (current) drug therapy
CPT/HCPCS: 36415; 71045; 80048; 80076; 80143; 80179; 80307; 81001; 82803; 82947; 83690; 84484; 85025; 93005; 96360; 99285

== ENCOUNTER → 2025-04-23 17:35 | Outpatient (BNV) | payer OTHER, SELFPAY | PROVIDERS: Emergency Provider Emergency Medicine Emergency Medical Services; Visit Provider Radiology Diagnostic Radiology | DX: R06.02 Shortness of breath (principal) | CPT/HCPCS: 71045 ==

== ENCOUNTER → 2025-04-23 17:35 | Outpatient (BNV) | payer OTHER, SELFPAY | PROVIDERS: Emergency Provider Emergency Medicine Emergency Medical Services; Visit Provider Internal Medicine Cardiovascular Disease | DX: R06.02 Shortness of breath (principal) | CPT/HCPCS: 93010 ==

== ENCOUNTER 2025-05-05 19:48 | Emergency (ER) | payer OTHER, SELFPAY ==
--- NOTE | ~2025-05-05 | CT_ITS ---
CLINICAL HISTORY: right sided headache --- Additional Notes or Special Instructions: HX of blood clot in brain. ? venous cavernous thrombosis CT angiography head with contrast. 3D Postprocessing. Comparison: None provided Findings: Intracranial arteries are patent. No aneurysm, dissection, hemodynamically significant stenoses, or occlusion. The left transverse sinus is small in caliber. No evidence of dural venous sinus thrombosis. No abnormal intracranial enhancement. No intra-axial mass, midline shift, hydrocephalus, or acute hemorrhage. Mucosal thickening is seen in bilateral maxillary sinuses and bilateral ethmoid air cells. No skull fracture. IMPRESSION: 1. Patent head CTA. 2. Small caliber left transverse sinus. No evidence of dural venous sinus thrombosis. 3. Mild bilateral maxillary sinus and bilateral ethmoid air cell disease. This document has been electronically signed by: Shayy Dockery on 05/06/2025 05:13:40
[2025-05-05 20:15] VITALS: BP 109/59; PULSE 67; RESP 20; TEMP 36.5; O2SAT 96; BMI 24.0
[2025-05-05 20:39] LABS: MANUAL DIFF FLAG NO
[2025-05-05 20:40] LABS: Hematocrit 42.6 % (42.0-52.0); Hemoglobin 15.0 g/dl (14.0-18.0); Imm Gran Abs Auto 0.02 X10*3/uL (0.00-0.03); Imm Gran Pct Auto 0.2 % (0.0-0.4); Lymphocytes Absolute Auto 1.8 X10*3/uL (1.2-4.9); Mean Corpuscular HGB Conc 35.2 g/dl (31.0-36.0); Mean Corpuscular Hemoglobin 28.9 pg (27.0-33.0); Mean Corpuscular Volume 82.1 fL (80.0-98.0); NRBC Abs Auto 0.000 X10*3/uL (0.0-0.012); NRBC Pct Auto 0.0 /100WBC (0.0-0.2); Platelet Count 306 X10*3/uL (160-400); Red Blood Count 5.19 X10*6/uL (4.60-5.80); White Blood Count 8.7 X10*3/uL (4.8-10.8)
[2025-05-05 20:46] LABS: INTERNATIONAL NORM RATIO 1.2 (0.9-1.1); Prothrombin Time 13.3 SEC (10.9-12.4)
[2025-05-05 20:51] LABS: IDNOW Serial# 55D5AD1C; Strep A Nucleic Acid Negative (Negative)
[2025-05-05 20:54] LABS: COVID-19 Test Negative (Negative); IDNOW Serial# 08D9AD1C
[2025-05-05 20:54] LABS: Alanine Aminotransferase 21 U/L (0-40); Albumin Level 4.8 g/dL (3.5-5.0); Alkaline Phosphatase 105 U/L (39-117); Anion Gap 14 (12-20); Aspartate Amino Transferase 21 U/L (5-37); Blood Urea Nitrogen 15 mg/dL (9-16); Calcium 9.3 mg/dL (8.4-10.2); Carbon Dioxide 28 mmol/L (22-29); Chloride 103 mmol/L (96-108); Creatinine Clr Calc Pharmacy 124.1; Estimated Glomerular Filt Rate > 60; Potassium 3.9 mmol/L (3.3-5.1); Sodium 141 mmol/L (135-145); Total Protein 7.8 g/dL (6.5-8.0)
[2025-05-05 20:59] LABS: IDNOW Serial# 58CA691E; Influenza B2 Negative (Negative)
--- OUTSIDE RECORDS SUMMARY | 2025-05-06 00:17 | XMS_ITS | Clinical Summary ---
Author Organization [employer] Address [address] [place] [address] Care Team Providers Care Cellophane Tester Name Role Phone Unavailable Primary Care Provider Unavailabl e Encounters Date Type Department Care Team Description 02/17/2025 Telephone [facility] [address], [place] [id number] Doug Chi MD from Last 3 Months Social History Tobacco [...] - 19+ 3-dose series) 2012 COVID-19 Vaccine (1 - 2023-2 5 season) 2025 Influenza Vaccine (#1) 2025 Zoster Vaccines (1 [...] patient's age to complete this topic Insurance [facility]
--- OUTSIDE RECORDS SUMMARY | 2025-05-06 00:17 | XMS_ITS | Clinical Summary ---
Author Organization [facility] Facility Address [address] [address] Care Team Providers Care Insulation Professional Name Role Phone Unavailable Primary Care Provider [...] patient's age to complete this topic Insurance [facility]
--- OUTSIDE RECORDS SUMMARY | 2025-05-06 00:17 | XMS_ITS | Encounter Summary ---
Author Organization [employer] Address [address] [place] [address] Care Team Providers Care Software Development Advisor Name Role Phone Unavailable Primary Care Provider Unavailabl e Reason for Visit * Reason Onset Date Comments emergency appt 08/09/2024 Encounter Details Date Type Department Care Team ([facility] st Contact Info) Description 08/09/2024 Telephone [facility] [address] [place] [id number] Denise Gannon, DDS [address] [place] [address] emergency appt Social History Tobacco Use Types [...]
[2025-05-06 00:21] VITALS: BP 122/83; PULSE 55; RESP 16; TEMP 36.4; O2SAT 98
--- NOTE | 2025-05-06 00:35 | PC.NURSE ---
Assumed care of pt, presents with headache x1 week thats progressively become worse, pain originates in the back of his on the right side and radiates the left side , pt endorses blurry vision, dizziness, and numbness in his right knee, pt stated that he took Tylenol at home with no relief, aaox4, nad, Pt states that
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
[2025-05-06] MEDS: iohexoL 350 MG/ML 100 ML INFUS..BTL 75 ML IV (02:04)
[2025-05-06 03:25] VITALS: BP 114/71; PULSE 76; RESP 14; TEMP 36.6; O2SAT 98
[2025-05-06 07:09] VITALS: BP 122/67; PULSE 80; RESP 14; TEMP 36.6; O2SAT 98
== END 2025-05-06 07:10 | disposition home or self-care (01) ==
PROVIDERS: Emergency Medicine; Emergency Provider Emergency Medicine
DX: R51.9 Headache, unspecified (principal); J32.9 Chronic sinusitis, unspecified; Z03.818 Encounter for observation for suspected exposure to other biological agents ruled out
CPT/HCPCS: 70496; 80053; 85025; 85610; 87502; 87635; 87651; 96361; 96374; 96375; 99285; J1200; J1885; J2765; J2919; Q9967

== ENCOUNTER → 2025-05-06 01:23 | Outpatient (BNV) | payer OTHER, SELFPAY | PROVIDERS: Emergency Provider Emergency Medicine; Visit Provider Radiology Vascular & Interventional Radiology | DX: R51.9 Headache, unspecified (principal) | CPT/HCPCS: 70496 ==